=== PATIENT | female | born 1955 | race Caucasian/White ===

== ENCOUNTER 2017-03-18 11:54 | Emergency (ER) | payer SELFPAY ==
[~2017-03-18] VITALS: Ht 147.3 cm; Wt 45.4 kg
--- OUTSIDE RECORDS SUMMARY | 2017-03-18 12:01 | XMS REPORT ---
Author BERNA Gamboa [facility] eClinicalWorks Address Unknown Phone Unavailable Care Team Providers Care Field Agronomist Name Role Phone BERNA LANIER CP Unavailable Allergies, Adverse Reactions, Alerts Substance Reaction Event Type N.K.D.A. Info Not Available Non Drug Allergy Problems Problem Type Condition Code Onset Dates Condition Status Assessment Dental caries K02.9 Active Medications No Known Medications Procedures Procedure Coding System Code Date EXTRAC ERUPTED TOOTH/EXPOSED ROOT CPT-4 D7140 October 02, 2015 Vital Signs Date/Time: October 02, 2015 Blood Pressure Diastolic 88 mmHg Blood Pressure Systolic 144 mmHg Results No Known Results Summary Purpose eClinicalWorks Submission
--- OUTSIDE RECORDS SUMMARY | 2017-03-18 12:01 | XMS REPORT | Continuity of Care Document ---
Author Author [facility] Organization [facility] Address Unknown Phone Unavailable Allergies There is no data. Medications There is no data. Problems There is no data. Procedures There is no data. Results There is no data. Encounters ACCT No. Visit Date/Time Discharge Status Pt. Type Provider Facility Loc./Unit Complaint [id number] 09/27/2016 15:15:02 ACT Unknown
--- OUTSIDE RECORDS SUMMARY | 2017-03-18 12:01 | XMS REPORT | Clinical Summary ---
Author Author Admin, [facility] Organization [facility] Address Unknown Phone Unavailable Allergies, Adverse Reactions, Alerts Allergy Name Reaction Description Start Date Severity Status Provider No Known Allergies Zari Elder Conditions or Problems Problem Name Problem Code Onset Date Status Entry Date Provider Comment Standard Description Annotate Rectocele Active Aleyda Baer MD Rectocele Cystocele 618.01 Active Aleyda Baer MD Cystocele, midline FEMALE STRESS INCONTINENCE 625.6 Active Aleyda Baer MD Stress incontinence, female Presence of pessary V45.89 Active Aleyda Baer MD Other postsurgical status Medication List Medication Instructions Start Date Stop Date Generic Name NDC Status Provider Patient Instruction ALPRAZOLAM 0.5 MG TAB 1 tab by mouth 4 times daily prn ALPRAZOLAM 73147279456 Active Zari Elder Active DULOXETINE HCL 30 MG ORAL CPEP 3 tabs by mouth daily DULOXETINE HCL 85856510196 Active Zari Elder Active PROAIR HFA 108 (90 BASE) MCG/ACT INH AERS 2 puffs daily ALBUTEROL SULFATE 19526871067 Active Zari Elder Active PERCOCET 10-325 MG ORAL TABS 1 tab by mouth every 4hours prn OXYCODONE- ACETAMINOPHEN 32632605748 Active Zari Elder Active Advance Directives Directive Description Start Date PERMISSION TO SHARE Encounters Code Encounter Date Provider Facility CPT-30082 Level 4 New Patient 00:04:14 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
--- OUTSIDE RECORDS SUMMARY | 2017-03-18 12:01 | XMS REPORT | Clinical Summary ---
Author Author Admin, [facility] Organization [facility] Address Unknown Phone Unavailable Allergies, Adverse Reactions, Alerts Allergy Name Reaction Description Start Date Severity Status Provider No Known Allergies Zari Elder Conditions or Problems Problem Name Problem Code Onset Date Status Entry Date Provider Comment Standard Description Annotate Problems Unknown Active Medication List Medication Instructions Start Date Stop Date Generic Name NDC Status Provider Patient Instruction ALPRAZOLAM 0.5 MG TAB 1 tab by mouth 4 times daily prn ALPRAZOLAM 67468904249 Active Zari Elder Active DULOXETINE HCL 30 MG ORAL CPEP 3 tabs by mouth daily DULOXETINE HCL 88442423611 Active Zari Elder Active PROAIR HFA 108 (90 BASE) MCG/ACT INH AERS 2 puffs daily ALBUTEROL SULFATE 38483573529 Active Zari Elder Active PERCOCET 10-325 MG ORAL TABS 1 tab by mouth every 4hours prn OXYCODONE- ACETAMINOPHEN 37343613304 Active Zari Elder Active
--- OUTSIDE RECORDS SUMMARY | 2017-03-18 12:01 | XMS REPORT | Clinical Summary ---
Author Author Admin, [facility]IE Organization [facility] Address Unknown Phone Unavailable Allergies, Adverse Reactions, Alerts Allergy Name Reaction Description Start Date Severity Status Provider No Known Allergies Nataliia Tavarez MA Conditions or Problems Problem Name Problem Code [...] by mouth 4 times daily prn ALPRAZOLAM 66131428430 Active Zari Elder Active DULOXETINE HCL 30 MG ORAL CPEP 3 tabs by mouth daily DULOXETINE HCL 92088158639 Active Zari Elder Active PROAIR HFA 108 (90 BASE) MCG/ACT INH AERS 2 puffs daily ALBUTEROL SULFATE 96050320788 Active Zari Elder Active PERCOCET 10-325 MG ORAL TABS 1 tab by mouth every 4hours prn OXYCODONE- ACETAMINOPHEN 72746692502 Active Zari Elder Active Advance Directives Directive Description Start Date PERMISSION TO SHARE Vital Signs Date Name Value Unit Range Description blood pressure, diastolic - 8462-4 60 mm[Hg] BP varma blood pressure, systolic - 8480-6 115 mm[Hg] BP sys height E&M - 8302-2 49 [in_us] Bdy height pulse rate E&M - 8867-4 86 /min Heart rate temperature E&M 98.3 [degF] Body temperature weight E&M - 3141-9 100 [lb_av] Weight Measured Encounters Code Encounter Date Provider Facility CPT-30428 Level 4 New Patient 00:04:14 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
[2017-03-18] MEDS ORDERED: ALPR1TAB7 (12:29)
[2017-03-18] MEDS ORDERED: MORP60TA52 (12:29)
[2017-03-18] MEDS ORDERED: DULO30CA3 (12:29)
[2017-03-18] MEDS ORDERED: PSEU30TA18 (12:29)
[2017-03-18] MEDS ORDERED: GABA-488 (12:29)
[2017-03-18] MEDS ORDERED: OXYC10TA7 (12:29)
--- NOTE | 2017-03-18 13:27 | ED Chest Pain ---
General Chief Complaint: Chest Wall/Rib Pain Stated Complaint: HEARTBURN/JAW PAIN Nursing Triage Note: AMB TO ROOM REPORTS THAT ON SUN FOR APX 6 HRS HAD BULRNING IN MIDDLE OF CHEST UP TO NECK. VOMITED . WAS SENT BY [facility] Nursing Sepsis Screen: No Definite Risk History of Present Illness Time seen by provider: 13:05 Initial Comments 61-year-old female reports that 2 days ago she began having chest wall pain, she became diaphoretic and vomited 3 times on that day. Her symptoms resolved until today. She reports the pain starts about in her mid sternum and radiates up into her throat and jaw. She denies any left arm pain. She has a history of fibromyalgia and was recently diagnosed with rheumatoid arthritis. She denies any nausea or vomiting today. She rates the pain at the 7-8/10. She has no previous cardiac history. Timing/Duration: intermittent Severity/Quality: moderate, burning, pressure Location: substernal Radiation: jaw Activities at Onset: none Prior CP/Workup: no prior chest pain Modifying Factors: improves with lying down ASA po ADJUNCT POLITICAL SCIENCE INSTRUCTOR: No NTG SL ADJUNCT POLITICAL SCIENCE INSTRUCTOR: No Associated Symptoms: diaphoresis, No fatigue, fever/chills, heartburn, nausea/ vomiting, No shortness of breath, No swelling/lump in chest, No syncope, No weakness Allergies and Home Medications Allergies Coded Allergies: No Known Drug Allergies (Unverified , 03/18/17) Home Medications Alprazolam 1 Mg Tablet, (Reported) Duloxetine HCl 30 Mg Capsule.dr, (Reported) Gabapentin 300 Mg Capsule, (Reported) Morphine Sulfate 60 Mg Tablet.er, (Reported) Oxycodone HCl 10 Mg Tablet, (Reported) Pseudoephedrine HCl 30 Mg Tablet, (Reported) Review of Systems Constitutional: no symptoms reported, see HPI Cardiovascular: See HPI, Chest Pain, Palpitations All Other Systems Reviewed Negative Unless Noted: Yes Past Akzxzbo-Bzabwm-Yqwsdr Hx Patient Social History Alcohol Use: Denies Use Recreational Drug Use: No Smoking Status: Current Everyday Smoker Type Used: Cigarettes Recent Foreign Travel: No Contact w/Someone Who Travel: No Recent Infectious Disease Expo: No Cardiovascular History of Cardiac Disorders: No Neurological History of Neurological Disord: No Genitourinary History of Genitourinary Disor: No Gastrointestinal History of Gastrointestinal Di: No Musculoskeletal History of Musculoskeletal Dis: Yes Musculoskeletal Disorders: Arthritis, Fibromyalgia, Chronic Back Pain Endocrine History of Endocrine Disorders: No HEENT History of HEENT Disorders: No Cancer History of Cancer: No Psychosocial History of Psychiatric Problem: Yes Behavioral Health Disorders: Anxiety Reviewed Nursing Assessment Reviewed/Agree w Nursing PMH: Yes Physical Exam Vital Signs Vital Sign - Last 12Hours 03/18/17 12:00 Temp 98.6 Pulse 93 Resp 18 B/P (MAP) 174/96 (122) Pulse Ox 97 O2 Delivery Room Air Capillary Refill : Less Than 3 Seconds General Appearance: No Apparent Distress, WD/WN HEENT: PERRL/EOMI, TMs Normal, Normal ENT Inspection, Pharynx Normal Neck: Full Range of Motion, Normal Inspection, Non Tender, Supple, No Lymphadenopathy (L), No Lymphadenopathy (R) Respiratory: Chest Non Tender (to palpation, patient reports burning sensation substernal, radiates to her neck and jaw.), Lungs Clear, Normal Breath Sounds Cardiovascular: Regular Rate, Rhythm, No Edema, No Murmur, Other (no bruit noted over carotids, bilaterally) Gastrointestinal: Normal Bowel Sounds, Non Tender, Soft Extremity: Normal Capillary Refill, Normal Inspection, Normal Range of Motion, Non Tender, No Calf Tenderness, No Pedal Edema Neurologic/Psychiatric: Alert, Oriented x3, No Motor/Sensory Deficits, Normal Mood/Affect Skin: Normal Color, Warm/Dry Lymphatic: No Adenopathy Progress/Results/Core Measures Results/Orders Lab Results Laboratory Tests Test 03/18/17 13:19 03/18/17 13:55 Range/Units White Blood Count 10.4 4.3-11.0 10^3/uL Red Blood Count 4.28 L 4.35-5.85 10^6/uL Hemoglobin 13.7 11.5-16.0 G/DL Hematocrit 41 35-52 % Mean Corpuscular Volume 95 80-99 FL Mean Corpuscular Hemoglobin 32 25-34 PG Mean Corpuscular Hemoglobin Concent 34 32-36 G/DL Red Cell Distribution Width 12.5 10.0-14.5 % Platelet Count 416 H 130-400 10^3/uL Mean Platelet Volume 9.1 7.4-10.4 FL Neutrophils (%) (Auto) 56 42-75 % Lymphocytes (%) (Auto) 33 12-44 % Monocytes (%) (Auto) 9 0-12 % Eosinophils (%) (Auto) 2 0-10 % Basophils (%) (Auto) 0 0-10 % Neutrophils # (Auto) 5.9 1.8-7.8 X 10^3 Lymphocytes # (Auto) 3.4 1.0-4.0 X 10^3 Monocytes # (Auto) 0.9 0.0-1.0 X 10^3 Eosinophils # (Auto) 0.2 0.0-0.3 10^3/uL Basophils # (Auto) 0.0 0.0-0.1 10^3/uL Prothrombin Time 13.1 12.2-14.7 SEC INR Comment 1.0 0.8-1.4 Activated Partial Thromboplast Time 29 24-35 SEC Sodium Level 134 L 135-145 MMOL/L Potassium Level 4.1 3.6-5.0 MMOL/L Chloride Level 99 98-107 MMOL/L Carbon Dioxide Level 26 21-32 MMOL/L Anion Gap 9 5-14 MMOL/L Blood Urea Nitrogen 8 7-18 MG/DL Creatinine 0.69 0.60-1.30 MG/DL Estimat Glomerular Filtration Rate > 60 BUN/Creatinine Ratio 12 Glucose Level 106 H 70-105 MG/DL Calcium Level 9.0 8.5-10.1 MG/DL Magnesium Level 1.7 L 1.8-2.4 MG/DL Total Bilirubin 0.3 0.1-1.0 MG/DL Aspartate Amino Transf (AST/SGOT) 14 5-34 U/L Alanine Aminotransferase (ALT/SGPT) 9 0-55 U/L Alkaline Phosphatase 70 40-136 U/L Myoglobin 33.9 10.0-92.0 NG/ML Troponin I < 0.30 <0.30 NG/ML Total Protein 7.0 6.4-8.2 GM/DL Albumin 3.5 3.2-4.5 GM/DL Urine Color YELLOW Urine Clarity CLEAR Urine pH 7 5-9 Urine Specific [place] 1.005 L 1.016-1.022 Urine Protein NEGATIVE NEGATIVE Urine Glucose (UA) NEGATIVE NEGATIVE Urine Ketones NEGATIVE NEGATIVE Urine Nitrite NEGATIVE NEGATIVE Urine Bilirubin NEGATIVE NEGATIVE Urine Urobilinogen NORMAL NORMAL MG/DL Urine Leukocyte Esterase NEGATIVE NEGATIVE Urine RBC (Auto) NEGATIVE NEGATIVE Urine RBC NONE /HPF Urine WBC 0-2 /HPF Urine Squamous Epithelial Cells 10-25 H /HPF Urine Crystals PRESENT H /LPF Urine Amorphous Sediment RARE SD URATES H /LPF Urine Bacteria FEW H /HPF Urine Casts NONE /LPF Urine Mucus NEGATIVE /LPF Urine Culture Indicated NO My Orders Orders - HARJEETCELIA Troponin I (03/18/17 13:11) Chest 1 View, Ap/Pa Only (03/18/17 13:11) Saline Lock/Iv-Start (03/18/17 13:11) Monitor-Rhythm Ecg Trace Only (03/18/17 13:11) Cbc With Automated Diff (03/18/17 13:11) Magnesium (03/18/17 13:11) Comprehensive Metabolic Panel (03/18/17 13:11) Myoglobin Serum (03/18/17 13:11) Protime With Inr (03/18/17 13:11) Partial Thromboplastin Time (03/18/17 13:11) Lidocaine 2% Viscous 15 Ml (Xylocaine Vi (03/18/17 13:30) Antacid Suspension (Mylanta Suspension (03/18/17 13:30) Ekg Tracing (03/18/17 13:27) Ua Culture If Indicated (03/18/17 14:13) Nitroglycerin 0.4 Mg Btl 25's (Nitrostat (03/18/17 15:00) Aspirin Enteric Coated Tablet (Ecotrin T (03/18/17 15:00) Aspirin Chewable Tablet (Baby Aspirin Ch (03/18/17 15:00) Medications Given in ED Current Medications Medications Dose Ordered Sig/Faustino Route Start Time Stop Time Status Last Admin Dose Admin Al Hydrox/Mg Hydrox/Simethicone 30 ml ONCE ONCE PO 03/18/17 13:30 03/18/17 13:31 DC 03/18/17 13:31 30 ML Aspirin 81 mg STK-MED ONCE .ROUTE 03/18/17 15:00 03/18/17 15:03 DC 03/18/17 15:04 324 MG Lidocaine HCl 15 ml ONCE ONCE PO 03/18/17 13:30 03/18/17 13:31 DC 03/18/17 13:31 15 ML Nitroglycerin 0.4 mg UD PRN SL 03/18/17 15:00 03/18/17 15:50 DC 03/18/17 15:05 0.4 MG Vital Signs/I&O Vital Sign - Last 12Hours 03/18/17 03/18/17 12:00 15:46 Temp 98.6 Pulse 93 84 Resp 18 18 B/P (MAP) 174/96 (122) Pulse Ox 97 98 O2 Delivery Room Air Room Air Blood Pressure Mean: 122 Progress Note : Time: 13:05 Progress Note Initial evaluation completed, EKG essentially normal, labs drawn. 1330 GI cocktail administered. 1350 patient reports no change in her symptoms since taking the GI cocktail. 1410 patient reports that she did not take her aspirin today, we will give aspirin 324 mg chewable And nitroglycerin sublingual 0.4 mg. 1420 patient reports symptoms are improving since giving the nitroglycerin. 1450 discharge planning reviewed with the patient and return precautions. All questions answered. ECG Initial ECG Impression Date: Mar 18, 2017 Initial ECG Impression Time: 12:23 Initial ECG Rhythm: Normal Sinus Initial ECG Intervals: Normal Initial ECG Intervals VA 117, QRS 3100, QT 388, QTc 478. [place] P0, QRS -29, T 40. Initial ECG Impression: Normal Initial ECG Comparisson: No Previous ECG Available Diagnostic Imaging Diagonstic Imaging: Xray Plain Films/CT/US/NM/MRI: chest Comments NAME: JEY BURCIGAA [facility] REC#: [id number] PT STATUS: REG ER : 1955 PHYSICIAN: CELIA COSBY ADMIT DATE: 03/18/17/ER Signed Date of Exam: 03/18/17 CHEST 1 VIEW, AP/PA ONLY INDICATION: Pain. COMPARISON: None. FINDINGS: Single frontal view of the chest is obtained. Heart size is normal. The pulmonary vessels appear unremarkable. There is no pneumothorax, mediastinal widening or pleural fluid demonstrated. The lungs are clear. IMPRESSION: No acute abnormalities demonstrated. Dictated by: Dictated on workstation # [id number] Dict: 03/18/17 1419 Trans: 03/18/17 142 Interpreted by: FREEDOM RIVERA DO Electronically signed by: FREEDOM RIVERA DO 03/18/17 1425 Departure Impression Impression: Primary Impression: Atypical chest pain Additional Impression: Angina pectoris Disposition: 01 HOME, SELF-CARE Condition: Improved Departure-Patient Inst. Decision time for Depature: 15:30 Referrals: [facility] (PCP/Family) Primary Care Physician Patient Instructions: Angina (DC), Chest Pain (DC) Add. Discharge Instructions: Call for cardiology evaluation: Dr. Malone [phone]; Dr. Hernadez [phone] Madrid [phone] Keep appointment with primary care provider at [facility] for next week. Continue continue taking aspirin 325 mg 1 daily. May take Tylenol 650 mg every 8 hours for pain. Discontinue the Sudafed. May use the nitroglycerin for chest pain, place on on your tongue, may repeat up to 3 doses in 15 min, if symptoms do not resolve, call 911 or go to the Emergency Department. Return to emergency department for chest pain not relieved with nitroglycerin, new problems or concerns. All discharge instructions reviewed with patient and/or family. Voiced understanding. Work/School Note: Work Release Form Date Seen in the Emergency Department: Mar 18, 2017 Return to Work: Mar 21, 2017 Restrictions: No Restrictions Copy Copies To 1: QUITA OLGUIN MD, AMY ARNP Mar 18, 2017 13:27
[2017-03-18 13:29] LABS: BASOPHILS % (AUTO) 0 % (0-10); EOSINOPHILS # (AUTO) 0.2 10^3/uL (0.0-0.3); EOSINOPHILS % (AUTO) 2 % (0-10); HEMATOCRIT 41 % (35-52); HEMOGLOBIN 13.7 G/DL (11.5-16.0); LYMPHOCYTES # (AUTO) 3.4 X 10^3 (1.0-4.0); LYMPHOCYTES % (AUTO) 33 % (12-44); MEAN CORPUSCULAR HEMOGLOBIN 32 PG (25-34); MEAN CORPUSCULAR HGB CONC 34 G/DL (32-36); MEAN CORPUSCULAR VOLUME 95 FL (80-99); MEAN PLATELET VOLUME 9.1 FL (7.4-10.4); MONOCYTES # (AUTO) 0.9 X 10^3 (0.0-1.0); MONOCYTES % (AUTO) 9 % (0-12); NEUTROPHILS # (AUTO) 5.9 X 10^3 (1.8-7.8); NEUTROPHILS % (AUTO) 56 % (42-75); PLATELET COUNT 416 10^3/uL (130-400); RED BLOOD COUNT 4.28 10^6/uL (4.35-5.85); RED CELL DISTRIBUTION WIDTH 12.5 % (10.0-14.5); WHITE BLOOD COUNT 10.4 10^3/uL (4.3-11.0)
[2017-03-18] MEDS ORDERED: LIDOCAINE 2% VISCOUS 15 ML UDC PO ONE (13:30)
[2017-03-18] MEDS ORDERED: ANTACID SUSP 30 ML UDC (MYLANTA) PO ONE (13:30)
[2017-03-18 13:39] LABS: PROTHROMBIN TIME PATIENT 13.1 SEC (12.2-14.7)
[2017-03-18 13:48] LABS: ALANINE AMINOTRANSFERASE 9 U/L (0-55); ALBUMIN 3.5 GM/DL (3.2-4.5); ALKALINE PHOSPHATASE 70 U/L (40-136); BILIRUBIN,TOTAL 0.3 MG/DL (0.1-1.0); BUN/CREATININE RATIO 12; CARBON DIOXIDE 26 MMOL/L (21-32); CHLORIDE 99 MMOL/L (98-107); CREATININE SERUM 0.69 MG/DL (0.60-1.30); GFR ESTIMATED > 60; GLUCOSE 106 MG/DL (70-105); MAGNESIUM 1.7 MG/DL (1.8-2.4); POTASSIUM 4.1 MMOL/L (3.6-5.0); SODIUM 134 MMOL/L (135-145)
[2017-03-18 13:54] LABS: MYOGLOBIN SERUM 33.9 NG/ML (10.0-92.0)
--- NOTE | 2017-03-18 14:22 | Diagnostic Imaging Report ---
INDICATION: Pain. COMPARISON: None. FINDINGS: Single frontal view of the chest is obtained. Heart size is normal. The pulmonary vessels appear unremarkable. There is no pneumothorax, mediastinal widening or pleural fluid demonstrated. The lungs are clear. IMPRESSION: No acute abnormalities demonstrated. Dictated by: Dictated on workstation # [id number]
[2017-03-18 14:46] LABS: BILIRUBIN,URINE NEGATIVE (NEGATIVE); GLUCOSE, URINE (UA) NEGATIVE (NEGATIVE); KETONES,URINE NEGATIVE (NEGATIVE); LEUKOCYTE ESTERASE ,URINE NEGATIVE (NEGATIVE); NITRITE,URINE NEGATIVE (NEGATIVE); PH,URINE 7 (5-9); PROTEIN,URINE NEGATIVE (NEGATIVE); UROBILINOGEN,URINE NORMAL (NORMAL)
[2017-03-18 14:48] LABS: AMORPHOUS SEDIMENT,UR RARE AMOR URATES /LPF; BACTERIA,URINE FEW /HPF; CLARITY,URINE CLEAR; COLOR,URINE YELLOW; WBC,URINE 0-2 /HPF
[2017-03-18] MEDS ORDERED: NITROGLYCERIN 0.4 MG SL TABS BTL 25'S SL PRN (15:00)
[2017-03-18] MEDS ORDERED: ASPIRIN E.C. 325 MG (ECOTRIN) TABLET PO ONE (15:00)
[2017-03-18] MEDS ORDERED: ASPIRIN 81 MG CHEW (CHILDREN'S ASA) ONE (15:00)
[2017-03-18 15:46] VITALS: BP 158/97
== END 2017-03-18 15:50 | disposition home or self-care (01) ==
LOC: ER 11:58
DX: I20.9 Angina pectoris, unspecified (principal); F41.9 Anxiety disorder, unspecified; F17.210 Nicotine dependence, cigarettes, uncomplicated
CPT/HCPCS: 36415; 71045; 80053; 81000; 83735; 83874; 84484; 85025; 85610; 85730; 93005; 93041

== ENCOUNTER → 2017-06-03 | Outpatient (CLI) | payer OTHER ==
[~2017-06-03] MED LIST: ALPR1TAB7; ALPR1TAB7 PO; ASPI-586 PO; ASPI-999 PO; ATOR20TA66 PO; DULO30CA3; DULO30CA48 PO; DULO60CA58 PO; GABA-488; LORA10TA7 PO; MORP60TA PO; MORP60TA52; NITR0.4T42 SL; OXYC10TA7; OXYC10TA7 PO; PSEU30TA18
== END ==
LOC: RAD 13:56
PROVIDERS: ATTEND Nurse Practitioner Family
DX: I73.9 Peripheral vascular disease, unspecified (principal); I10 Essential (primary) hypertension; R06.00 Dyspnea, unspecified; R07.9 Chest pain, unspecified
CPT/HCPCS: 93923

== ENCOUNTER 2017-06-10 08:07 | Day surgery (SDC) | payer OTHER ==
[~2017-06-10] VITALS: Ht 147.3 cm; Wt 45.4 kg
[2017-06-10] VITALS (11 sets, daily range): BP systolic 107–226; BP diastolic 67–82
[~2017-06-10 08:07] MED LIST changes: -ALPR1TAB7 PO; -ASPI-586 PO; -ASPI-999 PO; -ATOR20TA66 PO; -DULO30CA48 PO; -DULO60CA58 PO; -LORA10TA7 PO; -MORP60TA PO; -NITR0.4T42 SL; -OXYC10TA7 PO
[2017-06-10] MEDS ORDERED: NS IV 1000 ML 1,000 ML ONE (08:10)
[2017-06-10] MEDS ORDERED: HEParin (CATH LAB) 2,000 ML IV ONE (08:11)
[2017-06-10] MEDS ORDERED: NS IV 1000 ML 1,000 ML IV SCH ×2 (08:30→12:39)
[2017-06-10 08:41] LABS: HEMOGLOBIN 13.8 G/DL (11.5-16.0); MEAN PLATELET VOLUME 9.2 FL (7.4-10.4); RED BLOOD COUNT 4.39 10^6/uL (4.35-5.85); RED CELL DISTRIBUTION WIDTH 13.9 % (10.0-14.5); WHITE BLOOD COUNT 23.3 10^3/uL (4.3-11.0)
[2017-06-10 08:54] LABS: INR 1.1 (0.8-1.4); PROTHROMBIN TIME PATIENT 13.8 SEC (12.2-14.7)
[2017-06-10] MEDS ORDERED: NITR0.4T42 SL (09:03)
[2017-06-10 09:04] LABS: ALANINE AMINOTRANSFERASE 7 U/L (0-55); ALKALINE PHOSPHATASE 79 U/L (40-136); BILIRUBIN,TOTAL 0.3 MG/DL (0.1-1.0); BUN/CREATININE RATIO 22; CALCIUM 9.2 MG/DL (8.5-10.1); CARBON DIOXIDE 25 MMOL/L (21-32); CHLORIDE 98 MMOL/L (98-107); CHOLESTEROL 190 MG/DL (< 200); CREATININE SERUM 0.78 MG/DL (0.60-1.30); GFR ESTIMATED > 60; GLUCOSE 98 MG/DL (70-105); HDL CHOLESTEROL 61 MG/DL (40-60); POTASSIUM 3.9 MMOL/L (3.6-5.0); SODIUM 133 MMOL/L (135-145); TOTAL PROTEIN 7.3 GM/DL (6.4-8.2); TRIGLYCERIDES 84 MG/DL (<150); VLDL CHOLESTEROL 17 MG/DL (5-40)
[2017-06-10] MEDS ORDERED: OXYC10TA7 PO (09:04)
[2017-06-10] MEDS ORDERED: MORP60TA PO (09:05)
[2017-06-10] MEDS ORDERED: DULO60CA58 PO (09:05)
[2017-06-10] MEDS ORDERED: LORA10TA7 PO (09:05)
[2017-06-10] MEDS ORDERED: DULO30CA48 PO (09:06)
[2017-06-10] MEDS ORDERED: ALPR1TAB7 PO (09:07)
[2017-06-10] MEDS ORDERED: ASPI-586 PO (09:07)
[2017-06-10] MEDS ORDERED: INFLUENZA TRIvalent 2017-2018 0.5 ML/45 MCG SYR IM ONE (09:15)
[2017-06-10] MEDS ORDERED: MIDAZOLAM 5 MG/5 ML (VERSED) VIAL ONE (11:32)
[2017-06-10] MEDS ORDERED: fentaNYL INJECTION 100 MCG/2 ML AMP ONE (11:32)
[2017-06-10] MEDS ORDERED: diphenhydrAMINE 50 MG/ML INJ (BENADRYL) ONE (11:33)
[2017-06-10] MEDS ORDERED: LIDOCAINE 1% INJ 50 ML (XYLOCAINE) VIAL ONE (11:36)
--- NOTE | 2017-06-10 12:38 | Cardiac Procedure Note-CS/ASA ---
Pre-Procedure Note Pre-Op Procedure Note H&P Reviewed The H&P was reviewed, patient examined and no changes noted. Date H&P Reviewed: Jun 10, 2017 Time H&P Reviewed: 09:30 Conscious Sedation Pre-Proced Time Reviewed: 09:30 ASA Class: 3 Airway Mallampati Classification: ([place] appropriate class) I. II. III, IV Lungs Heart ASA score ASA 1: a normal healthy patient ASA 2: a patient with a mild systemic disease (mid diabetes, controlled hypertension, obesity ASA 3: a patient with a severe systemic disease that limits activity (angina , COPD, prior Myocardial infarction) ASA 4: a patient with an incapacitating disease that is a constant threat to life (CHF, renal failure) ASA 5: a moribund patient not expected to survive 24 hrs. (ruptured aneurysm) ASA 6: a declared brain patient whose organs are being harvested. For emergent operations, add the letter E after the classification Grade 2 Sedation Plan: Analgesia, Amnesia, Plan communicated to team members, Discussed options with patient/fam, Discussed risks with patient/fam Note The patient is an appropriate candidate to undergo the planned procedure, sedation, and anesthesia. The patient immediately re-assessed prior to indication. SANDRINE KHANNA MD FACP FAC CCDS Jun 10, 2017 12:38 pm
[2017-06-10] MEDS ORDERED: ACETAMINOPHEN 325 MG TABLET/CAPLET (TYLENOL) PO PRN (12:45)
[2017-06-10] MEDS ORDERED: PATIENT MAY USE OWN MEDS, ALL PO SCH (12:45)
[2017-06-10] MEDS ORDERED: NITROGLYCERIN 0.4 MG SL TABS BTL 25'S SL PRN (12:45)
[2017-06-10] MEDS ORDERED: ALPRAZolam 1 MG (XANAX) TAB PO PRN ×2 (12:45→17:15)
[2017-06-10] MEDS ORDERED: NON-FORMULARY MEDICATION 1 EA EA (Oxycodone HCl 10 MG) PO SCH (13:00)
--- NOTE | 2017-06-10 13:03 | CARDIAC CATHETERIZATION ---
DATE OF SERVICE: 06/10/2017 CARDIAC CATHETERIZATION REPORT The patient is a 62-year-old lady with multiple coronary artery disease risk factors and has been experiencing severe midsternal chest pains. Cardiac catheterization was carried out today after having obtained informed consent. PROCEDURE: She was brought to the cardiac catheterization laboratory in a fasting state. Right groin was prepped and draped in the usual sterile fashion. Lidocaine 1% was used for local anesthesia. Modified Seldinger technique used to advance a 5-Colombian sheath in right femoral artery. A 5-Colombian JL4 catheter for left coronary angiography. A 5-Colombian JR4 catheter for right coronary angiography. A 5-Colombian pigtail catheter for left heart catheterization, left ventricular angiography. We pulled back to the pigtail catheter into the aorta and placed it at the aortic arch. We performed an aortic arch angiogram because she has had the severe chest pains in the midsternal area for which we did not find a coronary cause and the concern was if she had any thoracic aortic aneurysm or dissection. After carrying out aortic arch angiography, we removed the catheter and angiography of the right femoral artery was carried out through the sheath. Mynx was used to achieve hemostasis. She tolerated the procedure well. HEMODYNAMICS: Left ventricular end-diastolic pressure following coronary angiography was 16 mmHg. There was no significant pressure gradient on pullback across the aortic valve. Ascending aortic pressure was 122/65 with a mean of 72 mmHg. LEFT VENTRICULAR ANGIOGRAPHY: Left ventricular angiography was carried out in the right anterior oblique projection. Global left ventricular systolic function is normal to hyperdynamic, left ventricular ejection fraction is 70 to 75%. On the first injection, there appeared to be some catheter-induced mitral regurgitation. We then repositioned the catheter and perform the angiogram again. On the second angiogram, following repositioning of the catheter, there did not appear to be any significant mitral regurgitation. CORONARY ANGIOGRAPHY: There is a kozc-rp-sqwcuanf coronary calcification. Left main coronary artery does not exhibit significant disease. The left anterior descending artery has 30 to 40% proximal stenosis that includes the origin of the first diagonal branch. Left circumflex artery has mild plaques. Right coronary artery is dominant and has 40 to 50% mid vessel stenosis. AORTIC ARCH ANGIOGRAM: Aortic arch angiography did not indicate thoracic aortic aneurysm or dissection. There is some calcification of the aortic arch. Neck arteries, to the extent seen, do not exhibit significant obstructive disease. CONCLUSIONS: 1. Mild coronary artery disease as described above. 2. Normal to hyperdynamic left ventricular systolic function with an ejection fraction of 70 to 75%. 3. Wcnz-rh-afkfczcg elevation left ventricular end-diastolic pressure. 4. No significant mitral regurgitation. DISCUSSION AND RECOMMENDATIONS: Based on results of the study, it appears appropriate to continue a conservative approach. Risk factor modification is advised. She has been advised to quit smoking immediately and completely. We noted that her white count was elevated and she is being retained in the hospital overnight for medical consultation for leukocytosis. Job ID: [id number] DocumentID: [id number] Dictated Date: 06/10/2017 12:32:20 City Engineer Date: 06/10/2017 13:02:50 Dictated By: SANDRINE KHANNA MD, MA, FACP, FACC,
[2017-06-10] MEDS ORDERED: ASPIRIN 81 MG CHEW (CHILDREN'S ASA) PO NR (14:00)
[2017-06-10 15:35] LABS: ABSOLUTE RETIC # 39 10e9/L (24-90); BASOPHILS % (AUTO) 0 % (0-10); EOSINOPHILS # (AUTO) 0.1 10^3/uL (0.0-0.3); EOSINOPHILS % (AUTO) 1 % (0-10); HEMATOCRIT 39 % (35-52); HEMOGLOBIN 13.1 G/DL (11.5-16.0); LYMPHOCYTES # (AUTO) 4.1 X 10^3 (1.0-4.0); LYMPHOCYTES % (AUTO) 28 % (12-44); MEAN CORPUSCULAR HEMOGLOBIN 31 PG (25-34); MEAN CORPUSCULAR HGB CONC 33 G/DL (32-36); MEAN CORPUSCULAR VOLUME 93 FL (80-99); MEAN PLATELET VOLUME 9.4 FL (7.4-10.4); MONOCYTES # (AUTO) 0.7 X 10^3 (0.0-1.0); MONOCYTES % (AUTO) 5 % (0-12); NEUTROPHILS # (AUTO) 9.7 X 10^3 (1.8-7.8); NEUTROPHILS % (AUTO) 66 % (42-75); PLATELET COUNT 412 10^3/uL (130-400); RED BLOOD COUNT 4.25 10^6/uL (4.35-5.85); RETICULOCYTE % 0.91 % (0.50-2.40); WHITE BLOOD COUNT 14.7 10^3/uL (4.3-11.0)
--- NOTE | 2017-06-10 15:36 | Diagnostic Imaging Report ---
INDICATION: Leukocytosis. TIME OF EXAM: 3:24 p.m. COMPARISON: Correlation is made with prior study from 03/18/2017. FINDINGS: The heart size is stable. There is some increased density to the left lung base medially, suspicious for left basilar infiltrate. The right lung is clear. The pulmonary vascularity is normal. No effusion or pneumothorax is seen. IMPRESSION: Findings suggestive of left basilar infiltrate or atelectasis. Dictated by: Dictated on workstation # [id number]
[2017-06-10 15:52] LABS: BAND NEUTROPHILS 0 %; BASOPHILS % (MANUAL) 1 %; EOSINOPHILS % (MANUAL) 0 %; LYMPHOCYTES % (MANUAL) 34 %; MONOCYTES % (MANUAL) 3 %; NEUTROPHILS % (MANUAL) 62 %; RBC MORPH NORMAL
[2017-06-10 16:16] LABS: BILIRUBIN,URINE NEGATIVE (NEGATIVE); CLARITY,URINE CLEAR; COLOR,URINE YELLOW; GLUCOSE, URINE (UA) NEGATIVE (NEGATIVE); KETONES,URINE NEGATIVE (NEGATIVE); LEUKOCYTE ESTERASE ,URINE NEGATIVE (NEGATIVE); NITRITE,URINE NEGATIVE (NEGATIVE); PH,URINE 6.5 (5-9); PROTEIN,URINE 1+ (NEGATIVE); UROBILINOGEN,URINE NORMAL (NORMAL)
[2017-06-10 16:45] LABS: BACTERIA,URINE NEGATIVE /HPF; RBC,URINE RARE /HPF; WBC,URINE RARE /HPF
[2017-06-10] MEDS ORDERED: ASPI-999 PO (17:05)
[2017-06-10] MEDS ORDERED: ATOR20TA66 PO (17:05)
[2017-06-10] MEDS ORDERED: OXYCODONE 10 MG PO PRN (17:15)
[2017-06-10] MEDS ORDERED: MORPHINE SULFATE ER 60 MG TABLET PO SCH (21:00)
[2017-06-10] MEDS ORDERED: ATORVASTATIN 40 MG (LIPITOR) TABLET PO SCH (21:00)
[2017-06-11] MEDS ORDERED: NON-FORMULARY MEDICATION 1 EA EA (Duloxetine HCl 60 MG) PO SCH (09:00)
[2017-06-11] MEDS ORDERED: DULoxetine 30 MG (CYMBALTA) CAP PO SCH ×2 (09:00)
[2017-06-11] MEDS ORDERED: LORATADINE (CLARITIN) 10 MG TAB PO SCH (09:00)
[2017-06-11] MEDS ORDERED: ASPIRIN 81 MG CHEW (CHILDREN'S ASA) PO SCH (09:00)
== END 2017-06-10 17:40 | disposition home or self-care (01) ==
LOC: CATH 08:07 → 4TH 12:50 → CATH 17:40
PROVIDERS: ATTEND Nurse Practitioner Family
DX: I25.10 Atherosclerotic heart disease of native coronary artery without angina pectoris (principal); Z11.2 Encounter for screening for other bacterial diseases; F17.210 Nicotine dependence, cigarettes, uncomplicated; D72.829 Elevated white blood cell count, unspecified
CPT/HCPCS: 36221; 36415; 71045; 80053; 80061; 81000; 83605; 84443; 85007; 85027; 85045; 85610; 85730; 87040; 87081; 93458

== ENCOUNTER → 2017-06-19 | Outpatient (CLI) | payer OTHER ==
[~2017-06-19] MED LIST changes: +ALPR1TAB7 PO; +ASPI-586 PO; +ASPI-999 PO; +ATOR20TA66 PO; +DULO30CA48 PO; +DULO60CA58 PO; +LORA10TA7 PO; +MORP60TA PO; +NITR0.4T42 SL; +OXYC10TA7 PO
--- NOTE | 2017-06-19 17:47 | Diagnostic Imaging Report ---
EXAMINATION: Ultrasound right lower extremity arterial. INDICATION: Right groin pain. Spectral and color flow imaging was performed. There are no prior studies available for comparison. By history, the patient has had a recent cardiac catheterization procedure. FINDINGS: There is good arterial blood flow in the common femoral and superficial femoral arteries. There is no sign of pseudoaneurysm or AV fistula. In the soft tissues anterior to the common femoral artery, there is a 1.7 x 1.6 x 0.3 cm hypoechoic area. I suspect that this is a small hematoma. There is no internal vascularity to suggest active bleeding. IMPRESSION: There is no evidence for an acute vascular injury to the common femoral or superficial femoral arteries. There does appear to be a small hematoma in the soft tissues in this region, however. Clinical followup is recommended. Dictated by: Dictated on workstation # [id number]
== END ==
LOC: CARD 13:03
PROVIDERS: ATTEND Nurse Practitioner Family
DX: R10.31 Right lower quadrant pain (principal); R07.9 Chest pain, unspecified; I97.630 Postprocedural hematoma of a circulatory system organ or structure following a cardiac catheterization
CPT/HCPCS: 93306; 93926

== ENCOUNTER → 2017-07-02 | Outpatient (CLI) | payer OTHER ==
[~2017-07-02] MED LIST changes: +RT-ALBUTEROL SULF 2.5 MG/3 ML PRE-MIX VIAL INH ONE
== END ==
LOC: RT 11:43
PROVIDERS: ATTEND Nurse Practitioner Family
DX: R06.00 Dyspnea, unspecified (principal); Z72.0 Tobacco use
CPT/HCPCS: 94060; 94726; 94729

== ENCOUNTER 2017-07-12 21:24 | Outpatient (CLI) | payer OTHER ==
[~2017-07-12 21:24] MED LIST changes: -RT-ALBUTEROL SULF 2.5 MG/3 ML PRE-MIX VIAL INH ONE
== END 2017-07-13 06:35 | disposition home or self-care (01) ==
LOC: SLEEP 21:24
PROVIDERS: ATTEND Nurse Practitioner Family
DX: G47.00 Insomnia, unspecified (principal); G25.81 Restless legs syndrome; G47.50 Parasomnia, unspecified; G47.10 Hypersomnia, unspecified
CPT/HCPCS: 95810

== ENCOUNTER → 2017-08-06 | Outpatient (CLI) | payer OTHER ==
[~2017-08-06] MED LIST changes: +CATHETER FLUSH 10 ML SYR IV PRN; +IOHEXOL 350 MG/ML 100 ML (OMNIPAQUE 350) VIAL IV ONE; +NS 250 ML (IVPB) BAG IV ONE
[2017-08-06 14:08] LABS: BUN/CREATININE RATIO 16; CREATININE SERUM 0.75 MG/DL (0.60-1.30); GFR ESTIMATED > 60
[2017-08-06 15:13] LABS: ABG BASE EXCESS -2.4 MMOL/L (-2.5-2.5); ABG OXYGEN SATURATION 97 % (94-100); ABG PCO2 41 MMHG (35-45); ABG PH 7.35 (7.37-7.43); ABG PO2 86 MMHG (79-93); ABG TCO2 23.7 MMOL/L (21.0-31.0)
[2017-08-06 15:15] LABS: ALLENS TEST YES-POS; INSPIRED O2 ROOM AIR; PATIENT TEMP 97.3; VENTILATOR NO
--- NOTE | 2017-08-06 15:41 | Diagnostic Imaging Report ---
PROCEDURE: CT chest with contrast only. TECHNIQUE: Multiple contiguous axial images were obtained through the chest after administration of intravenous contrast. INDICATION: Restrictive lung disease and shortness of air. COMPARISON: No prior CT chest studies are available for comparison. FINDINGS: No axillary lymphadenopathy is detected. No definite mediastinal or hilar lymphadenopathy is seen. No pericardial or pleural fluid is detected. Parenchymal evaluation does show central airways to be patent. There appear to be some centrilobular emphysematous changes in both lungs. No infiltrate, nodule, or mass is detected. Upper abdomen is unremarkable. IMPRESSION: Mild centrilobular emphysematous changes. The study is otherwise unremarkable. Dictated by: Dictated on workstation # [id number]
== END ==
LOC: RAD 13:27
PROVIDERS: ATTEND Nurse Practitioner Family
DX: J43.9 Emphysema, unspecified (principal); Z72.0 Tobacco use
CPT/HCPCS: 36415; 36600; 71260; 82565; 82805; 84520

== ENCOUNTER 2017-08-25 09:19 | Outpatient (RCR) | payer OTHER ==
[~2017-08-25 09:19] MED LIST changes: -CATHETER FLUSH 10 ML SYR IV PRN; -IOHEXOL 350 MG/ML 100 ML (OMNIPAQUE 350) VIAL IV ONE; -NS 250 ML (IVPB) BAG IV ONE
== END 2017-11-23 | disposition home or self-care (01) ==
LOC: PULM 09:19
PROVIDERS: ATTEND Nurse Practitioner Family
DX: J98.4 Other disorders of lung (principal); R53.83 Other fatigue; R06.09 Other forms of dyspnea; Z72.0 Tobacco use
CPT/HCPCS: 99211

== ENCOUNTER 2018-07-24 09:13 | Outpatient (CLI) | payer OTHER ==
[~2018-07-24] VITALS: Ht 147.3 cm; Wt 45.4 kg
[2018-07-24] MEDS ORDERED: ATOR20TA66 PO (11:17)
[2018-07-24] MEDS ORDERED: FLUT1BLS3 IH (11:17)
[2018-07-24] MEDS ORDERED: DICL75TA2 PO (11:17)
[2018-07-24] MEDS ORDERED: CETI10TA17 PO (11:17)
[2018-07-24] MEDS ORDERED: BUPR8TAB SL (11:17)
[2018-07-24] MEDS ORDERED: IPRA3AMP31 IH (11:17)
[2018-07-24] MEDS ORDERED: LUBI24CA6 PO (11:17)
[2018-07-24] MEDS ORDERED: ASPI-586 PO (11:17)
[2018-07-24] MEDS ORDERED: METO-387 PO (11:17)
== END 2018-07-24 11:21 | disposition home or self-care (01) ==
LOC: PREOP 09:13
PROVIDERS: ATTEND Surgery
DX: Z01.818 Encounter for other preprocedural examination (principal)

== ENCOUNTER 2018-07-28 09:14 | Day surgery (SDC) | payer OTHER ==
[~2018-07-28] VITALS: Ht 147.3 cm; Wt 45.4 kg
[~2018-07-28 09:14] MED LIST changes: +BUPR8TAB SL; +CETI10TA17 PO; +DICL75TA2 PO; +FLUT1BLS3 IH; +IPRA3AMP31 IH; +LUBI24CA6 PO; +METO-387 PO
--- OUTSIDE RECORDS SUMMARY | 2018-07-28 09:18 | XMS REPORT ---
Author Author ROBIN FLORES Organization 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 Role Phone ROBIN FLORSE Unavailable PROBLEMS Type Condition ICD9-CM Code YES97-EY Code Onset Dates Condition Status SNOMED Code Problem Anxiety F41.9 Active 89914906 Problem Generalized anxiety disorder F41.1 Active 74814598 Problem Mild episode of recurrent major depressive disorder F33.0 Active 449206205 Problem Chronic pain syndrome G89.4 Active 966318584 Problem Fibromyalgia M79.7 Active 365911510 Problem Conductive hearing loss of left 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 H90.12 Active 247338977 Problem Spondylitis, cervical M46.92 Active 458428282 Problem Chronic insomnia F51.04 Active 842704054 Problem Constipation K59.00 Active 56128356 Problem Rotator cuff arthropathy of left shoulder M12.812 Active 71561615724000009 Problem 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 Active 2436955337358706 Problem Sinusitis chronic, frontal J32.1 Active 19977759 Problem Coronary artery disease involving [place] coronary artery of [place] heart with unstable angina pectoris I25.110 Active 3747759950856 Problem Arthritis M19.90 Active 0300424 Problem Angina at rest I20.8 Active 119812881 Problem Needs smoking cessation education F17.200 Active 555505867 Problem 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 [address] [facility] [id number] [address] Mar, [facility] [address] [address] Mar, [facility] [id number] [place] [address]68- 5265 Mar, [facility] [id number] [place] [address] 71315- 1368 Mar, [facility] [id number] [place] [address] 427017- 8978 Feb, [facility] [id number] [place] [address] 79702- 9769 Feb, [facility] [id number] [place] [address] 74006- 2595 Feb, Right otitis media with effusion H65.91 and Nevoid hyper[address]mentation L81.9 [facility] [id number] [place] [address] 60345- 1499 Jan, [facility] [id number] [place] [address] 77722- 9006 Jan, [facility] [id number] [place] [address] 20401- 1142 Jan, [facility] [id number] [place] [address] 41988- 9629 Jan, [facility] [id number] [place] [address] 33325- 8357 Jan, Fibromyalgia M79.7 [facility] [address] [place] [address] 83815- 7412 15 Jan, 2018 Rotator cuff arthropathy of left shoulder M12.812 [facility] [id number] [place] [address] 13967- 0029 14 Jan, 2018 Fibromyalgia M79.7 ; Spondylitis, cervical M46.92 ; Inflammatory arthritis M19.90 and Seborrheic keratoses L82.1 [facility] [id number] [place] [address] 99039- 4862 Jan, [facility] [id number] [place] [address] 16093- 6491 Jan, [facility] [id number] [place] [address] 36852- 3933 Jan, Generalized anxiety disorder F41.1 and Mild episode of recurrent major depressive disorder F33.0 [facility] [address] [address]- [address] Dec, Chronic pain syndrome G89.4 [facility] [address] 61799- [address]113 Dec, [facility] [address] 49446- 1734 Dec, Arthritis M19.90 ; Fibromyalgia M79.7 ; Anxiety F41.9 ; Dizziness R42 ; Conductive hearing loss of left 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 H90.12 and Encounter for immunization Z23 [facility] [id number] [place] [address] 24837- 1051 Dec, Rotator cuff arthropathy of left shoulder M12.812 [facility] [id number] [place] [address] 12199- 7294 Dec, Chronic pain syndrome G89.4 [facility] [id number] [place] [address] 25814- 4212 Dec, Rotator cuff arthropathy of left shoulder M12.812 [facility] [id number] [place] [address] 88488- 6464 Dec, Acute midline thoracic back pain M54.6 ; Chronic pain syndrome G89.[address] [facility] [id number] [place] [address] 46650- 7192 Dec, [facility] [id number] [place] [address] 72729- 6523 Dec, [facility] [id number] [place] [address] 52046- 8382 26 Nov, 2017 Rotator cuff arthropathy of left shoulder M12.812 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 [facility] [id number] [place] [address] 07355- 0658 10 Nov, 2017 Arthritis M19.90 and Anxiety F41.9 [facility] [id number] [place] [address] 50849- 2659 Nov, Generalized anxiety disorder F41.1 and Mild episode of recurrent major depressive disorder F33.0 [facility] [id number] [place] [address] 47174- 3329 Nov, Spondylitis, cervical M46.92 [facility] [id number] [place] [address] 84073- 0150 Oct, [facility] [id number] [place] [address] 34088- 5855 Oct, Basal cell carcinoma of nose C44.311 [facility] [id number] [place] [address] 24741- 2833 Oct, Spondylitis, cervical M46.92 and Anxiety F41.9 [facility] [id number] [place] [address] 28882- 6667 Oct, Generalized anxiety disorder F41.1 and Mild episode of recurrent major depressive disorder F33.0 [facility] [id number] [place] [address] 82726- 0278 Oct, Rotator cuff arthropathy of left shoulder M12.812 [place] [id number] [place] [address] 59560- 0376 Oct, Spondylitis, cervical M46.92 [facility] [id number] [place] [address] 70584- 0896 Oct, [facility] [id number] [place] [address] 50929- 6827 Sep, Basal cell carcinoma of nose C44.311 [facility] [id number] [place] [address] 50791- 6238 Sep, Generalized anxiety disorder F41.1 and Mild episode of recurrent major depressive disorder F33.0 [facility] [id number] [place] [address] 43755- 7532 Sep, Spondylitis, cervical M46.[address] [facility] [id number] [place] [address] 04796- 1105 Sep, [facility] [id number] [place] [address] 75919- 6402 Aug, Rotator cuff arthropathy of left shoulder M12.812 [facility] [id number] [place] [address] 15246- 7416 Aug, Lesion of nose J34.89 [facility] [id number] [place] [address] 44170- 6091 Aug, Spondylitis, cervical M46.92 ; Fibromyalgia M79.7 and 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 [facility] [id number] [place] [address] 53507- 1987 Aug, Fib[address] M79.7 [facility] [id number] [place] [address] 44798- 9015 Aug, Fibromyalgia M79.7 [facility] [id number] [place] [address] 17452- 5533 Aug, [facility] [id number] [place] [address] 64105- 0094 July, [facility] [address], [place] [address] July, [facility] [id number] [place] [address] 41411- 1644 July, Arthritis M19.90 [facility] [address] [place] [address] 04210- 0181 July, Inflammatory arthritis M19.90 [facility] [id number] [place] [address] 04890- 0743 Jun, Inflammatory arthritis M19.90 [facility] [id number] [place] [address] 07029- 3343 Jun, Ar[address]ritis M19.90 [facility] [id number] [place] [address] 38782- 8189 May, 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 ; Rheumatoid arthritis of left hip without organ or system involvement with positive rheumatoid factor M05.752 ; Chest pain, unspecified type R07.9 and Needs smoking cessation education F17.200 [place] [address], [place] [address]- 7024 May, [place] [id number] [place] [address] 55867- 8533 May, Ar[address]ritis M19.90 [facility] [address] [place] [address] 92210- 2204 May, Chest pain, unspecified type R07.9 ; Dyspnea on exertion R06.09 ; Claudication of both lower extremities I73.9 ; Hypertension, unspecified type I10 and Tobacco use Z72.0 [facility] [id number] [place] [address] 28690- 9360 Apr, Ar[address]ritis M19.90 [facility] [address] [place] [address] 55891- 7278 Apr, Ar[address]ritis M19.90 [facility] [id number] [address]- 5497 12 Apr, 2017 Sinusitis chronic, frontal J32.1 ; Coronary artery disease involving [place] coronary artery of [place] heart with unstable angina pectoris I25.110 ; Arthritis M19.[address] [facility] [address], [place] [address] 2546 09 Apr, 2017 Sinusitis chronic, frontal J32.1 ; Coronary artery disease involving [place] coronary artery of [place] heart with unstable angina pectoris I25.110 ; Arthritis M19.[address] [facility] [id number] [place] [address] 76850- 6298 Mar, [facility] [id number] [place] [address] 92046- 4873 Mar, Arthritis M19.90 [facility] [id number] [place] [address] 32183- 6359 Mar, Angina at rest I20.8 [facility] [id number] [place] [address] 10126 2546 Mar, Ar[address]ritis M19.90 [facility] [id number] [place] [address] 78146- 1976 Mar, [facility] [id number] [place] [address] 99610- 0487 Feb, [facility] [id number] [place] [address] 56670- 5433 Feb, [facility] [address] [address]- 1829 Feb, Arthritis M19.90 [facility] [id number] [place] [address] 74305 -1416 Feb, Left foot pain M79.672 and Acute left ankle pain M25.572 [facility] [id number] [place] [address] 97905- 6524 Jan, [facility] [id number] [address] 08 Jan, 2017 Arthritis M19.90 ; Spondylitis, cervical M46.92 ; Fibromyalgia M79.7 and Family history of hypothyroidism Z83.49 [place] [address], [place] [address]- 4809 Sep, Dental caries K02.9 [place] [id number] [address]- 7457 Aug, Dental examination Z01.20 [facility] [id number] [place] [address] 57999- 0058 Apr, Dental examination Z01.20 and Dental caries K02.9 [place] [address], [place] [address]- 6550 Apr, Dental caries K02.9 [place] [address], [place] [address]- 0668 Apr, Dental examination Z01.20 IMMUNIZATIONS No Known Immunizations SOCIAL HISTORY Never Assessed REASON FOR VISIT Controlled Med Refill 02/23/18 PLAN OF CARE VITAL SIGNS MEDICATIONS Medication Instructions Dosage Frequency Start Date End Date Duration Status Oxycodone HCl 5 MG Orally as directed 2 tablets in the morning, 1 tablet at noon, and 1 tablet in the evening Feb, 14 days Active RESULTS No Results PROCEDURES No Known procedures INSTRUCTIONS MEDICATIONS ADMINISTERED No Known Medications MEDICAL (GENERAL) HISTORY Type Description Date Medical History Pneumonia Medical History Back and neck pain Medical History fibromyalgia Medical History Severe OA Medical History COPD Medical History emphysema Medical History "nocturnal hypoxemia" Surgical History Heart Cath no stents needed 05/2017 Hospitalization History Chest Pain observation 2013 Hospitalization History Cervical Surgery 1997 Hospitalization History [facility] Kelly 01/2018
--- OUTSIDE RECORDS SUMMARY | 2018-07-28 09:18 | XMS REPORT ---
Author Author PEYTON OWEN [facility] Address [address] [place] [address] Care Team Providers [employer] Name Role Phone PEYTON OWEN Unavailable PROBLEMS Type Condition ICD9-CM Code ESW71-EQ Code Onset Dates Condition Status SNOMED Code Problem Anxiety F41.9 Active 24301424 Problem Generalized anxiety disorder F41.1 Active 18206987 Problem Mild episode of recurrent major depressive disorder F33.0 Active 223419653 Problem Chronic pain syndrome G89.4 Active 583441161 Problem Fibromyalgia M79.7 Active 930145048 Problem Conductive hearing loss of left 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 H90.12 Active 047718472 Problem Spondylitis, cervical M46.92 Active 394136081 Problem Chronic insomnia F51.04 Active 762169997 Problem Constipation K59.00 Active 03564740 Problem Rotator cuff arthropathy of left shoulder M12.812 Active 49986425401443522 Problem 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 Active 3199183996246147 Problem Sinusitis chronic, frontal J32.1 Active 61705230 Problem Coronary artery disease involving [place] coronary artery of [place] heart with unstable angina pectoris I25.110 Active 2801111279625 Problem Arthritis M19.90 Active 5649885 Problem Angina at rest I20.8 Active 326074444 Problem Needs smoking cessation education F17.200 Active 951068776 Problem 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 Active 759369863 Problem Hypertension, unspecified type I10 Active 00067720 Problem Inflammatory arthritis M19.90 Active 9908781 Problem Claudication of both lower extremities I73.9 Active 30173525 Problem Basal cell carcinoma of nose C44.311 Active 551876860 ALLERGIES No Information ENCOUNTERS Encounter Location Date Diagnosis [facility] [address] [facility] [id number] [address] Mar, [facility] [id number] [address] Mar, [facility] [id number] [address] Mar, [facility] [id number] [address] Mar, [facility] [address] [place] [id number] [place] [address] 83508- 6615 Feb, [facility] [id number] [place] [address] 91876- 1017 Feb, [facility] [id number] [place] [address] 15618- 0388 Feb, [facility] [address] [place] [address] 08649- 1606 Feb, Right otitis media with effusion H65.91 and Nevoid hyperpigmentation L81.9 [facility] [id number] [address] Jan, [facility] [id number] [place] [address] 12553- 0226 Jan, [facility] [id number] [address] 365[address] Jan, [facility] [address] [place] [address] 18140- 3272 Jan, [facility] [id number] [address] Jan, Fibromyalgia M79.7 [facility] [address] [place] [address] 74577- 0597 15 Jan, 2018 Rotator cuff arthropathy of left shoulder M12.812 [facility] [id number] [address] 14 Jan, 2018 Fibromyalgia M79.7 ; Spondylitis, cervical M46.92 ; Inflammatory arthritis M19.90 and Seborrheic keratoses L82.1 [facility] [id number] [place] [address] 41285- 5198 Jan, [facility] [id number] [place] [address] 21916- 4410 Jan, [facility] [id number] [place] [address] 79663- 6099 Jan, Generalized anxiety disorder F41.1 and Mild episode of recurrent major depressive disorder F33.0 [facility] [id number] [place] [address] 03853- 6680 Dec, Chronic pain syndrome G89.4 [place] [address] [address]- 6718 Dec, [facility] [id number] [place] [address] 84007- 3725 Dec, Arthritis M19.90 ; Fibromyalgia M79.7 ; Anxiety F41.9 ; Dizziness R42 ; Conductive hearing loss of left 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 H90.12 and Encounter for immunization Z23 [facility] [id number] [place] [address] 13676- 7702 Dec, Rotator cuff arthropathy of left shoulder M12.812 [place] [id number] [place] [address] 30259- 2811 Dec, Chronic pain syndrome G89.4 [facility] [id number] [place] [address] 97807- 4546 Dec, Rotator cuff arthropathy of left shoulder M12.812 [place] [id number] [place] [address] 92878- 5750 Dec, Acute midline thoracic back pain M54.6 ; Chronic pain syndrome G89.4 and Dizziness R42 [facility] [id number] [place] [address] 31036- 2347 Dec, [place] [address] [place] [address]- 6259 Dec, [facility] [id number] [place] [address] 68244- 5530 Nov, Rotator cuff arthropathy of left shoulder M12.812 [facility] [id number] [place] [address] 34744- 2409 19 Nov, 2017 Chronic insomnia F51.04 ; Non-healing skin lesion of nose L98.9 ; BPPV (benign paroxysmal positional vertigo), left H81.12 ; Constipation K59.00 and 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 [facility] [address] [address]17- 1029 Nov, Arthritis M19.90 and Anxiety F41.9 [facility] [id number] [place] [address] 65614- 3014 Nov, Generalized anxiety disorder F41.1 and Mild episode of recurrent major depressive disorder F33.0 [facility] [id number] [place] [address] 95750- 8790 Nov, Spondylitis, cervical M46.92 [facility] [id number] [place] [address] 73954- 0222 Oct, [facility] [id number] [place] [address] 44393- 0631 Oct, Basal cell carcinoma of nose C44.311 [facility] [id number] [place] [address] 29978- 7567 Oct, Spondylitis, cervical M46.92 and Anxiety F41.9 [facility] [id number] [place] [address] 80957- 2137 Oct, Generalized anxiety disorder F41.1 and Mild episode of recurrent major depressive disorder F33.0 [facility] [id number] [place] [address] 20960- 3389 Oct, Rotator cuff arthropathy of left shoulder M12.812 [place] [id number] [place] [address] 72212- 3477 Oct, Spondylitis, cervical M46.92 [facility] [address] 16214- 6663 Oct, [facility] [id number] [place] [address] 99860- 2061 Sep, Basal cell carcinoma of nose C44.311 [facility] [address] 39382- 3365 Sep, Generalized anxiety disorder F41.1 and Mild episode of recurrent major depressive disorder F33.0 [place] [address] 41538- 3861 Sep, Spondylitis, cervical M46.92 and Anxiety F41.9 [place] [address] 44782- 9984 Sep, [facility] [address] 75926- 9414 Aug, Rotator cuff arthropathy of left shoulder M12.812 [place] [address] 52733- 5947 Aug, Lesion of nose J34.89 [place] [id number] [place] [address] 27889- 1731 Aug, Spondylitis, cervical M46.92 ; Fibromyalgia M79.7 and 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 [facility] [id number] [place] [address] 46000- 1414 Aug, Fibromyalgia M79.7 [facility] [address] 56012- 1018 Aug, Fibromyalgia M79.7 [facility] [id number] [place] [address] 62985- 4449 Aug, [facility] [address] [place] [address]- 0278 July, [facility] [id number] [place] [address] 95259- 8969 July, [facility] [id number] [place] [address] 83669- 2120 July, Arthritis M19.90 [facility] [id number] [place] [address] 19953- 1462 July, Inflammatory arthritis M19.90 [facility] [id number] [place] [address] 00322- 5923 Jun, Inflammatory arthritis M19.90 [facility] [id number] [place] [address] 51862- 7053 Jun, Arthritis M19.90 [facility] [id number] [place] [address] 69655- 8681 May, 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 ; Rheumatoid arthritis of left hip without organ or system involvement with positive rheumatoid factor M05.752 ; Chest pain, unspecified type R07.9 and Needs smoking cessation education F17.200 [place] [address] [place] [address] 18400- 3403 May, [place] [address] [address]- 0543 May, Arthritis M19.90 [facility] [address] [place] [address] 70126- 1112 May, Chest pain, unspecified type R07.9 ; Dyspnea on exertion R06.09 ; Claudication of both lower extremities I73.9 ; Hypertension, unspecified type I10 and Tobacco use Z72.0 [facility] [address] [address]- 0233 Apr, Arthritis M19.90 [facility] [id number] [place] [address] 96697- 2318 Apr, Arthritis M19.90 [facility] [address] [address]- 9240 12 Apr, 2017 Sinusitis chronic, frontal J32.1 ; Coronary artery disease involving [place] coronary artery of [place] heart with unstable angina pectoris I25.110 ; Arthritis M19.90 and Fibromyalgia M79.7 [facility] [id number] [place] [address] 24287- 0204 09 Apr, 2017 Sinusitis chronic, frontal J32.1 ; Coronary artery disease involving [place] coronary artery of [place] heart with unstable angina pectoris I25.110 ; Arthritis M19.90 and Fibromyalgia M79.7 [facility] [id number] [place] [address] 37707- 9043 Mar, [facility] [id number] [place] [address] 66495- 4966 Mar, Arthritis M19.90 [facility] [id number] [place] [address] 46068- 3595 Mar, Angina at rest I20.8 [facility] [id number] [place] [address] 90851- 4154 Mar, Arthritis M19.90 [facility] [id number] [place] [address] 74340- 1103 Mar, [facility] [id number] [place] [address] 21561- 0296 Feb, [facility] [id number] [place] [address] 66158- 6851 Feb, [facility] [id number] [place] [address] 73817- 7486 Feb, Arthritis M19.90 [facility] [id number] [place] [address] 80372 -5092 Feb, Left foot pain M79.672 and Acute left ankle pain M25.572 [facility] [address] [address]- 9580 Jan, [facility] [address] [place] [address] 40425 -9911 Jan, Arthritis M19.90 ; Spondylitis, cervical M46.92 ; Fibromyalgia M79.7 and Family history of hypothyroidism Z83.49 [place] [id number] [place] [address] 92850- 1546 Sep, Dental caries K02.9 [place] [address] 53243- 2177 Aug, Dental examination Z01.20 [place] [address] 95401- 8485 Apr, Dental examination Z01.20 and Dental caries K02.9 [place] [address] [place] [id number] [place] [address] 98596- 4731 Apr, Dental caries K02.9 [place] [address] [place] [id number] [place] [address] 44075- 8878 Apr, Dental examination Z01.20 IMMUNIZATIONS No Known Immunizations SOCIAL HISTORY Never Assessed REASON FOR VISIT Requests return call PLAN OF CARE VITAL SIGNS MEDICATIONS Unknown Medications RESULTS No Results PROCEDURES No Known procedures [...]
--- OUTSIDE RECORDS SUMMARY | 2018-07-28 09:18 | XMS REPORT ---
Author Author MATEO CARY [facility] Address [address] [place] [address] Care Team Providers Care Supervisor Road Administrator Name Role Phone MATEO CARY Unavailable PROBLEMS Type Condition ICD9-CM Code UPU22-LM Code Onset Dates Condition Status SNOMED Code Problem Anxiety F41.9 Active 32352992 Problem Generalized anxiety disorder F41.1 Active 80512733 Problem Mild episode of recurrent major depressive disorder F33.0 Active 942336392 Problem Chronic pain syndrome G89.4 Active 197832457 Problem Fibromyalgia M79.7 Active 647525157 Problem Conductive hearing loss of left 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 H90.12 Active 870093942 Problem Spondylitis, cervical M46.92 Active 278163927 Problem Chronic insomnia F51.04 Active 099644340 Problem Constipation K59.00 Active 99679559 Problem Rotator cuff arthropathy of left shoulder M12.812 Active 83165875418673880 Problem 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 Active 6327422548305866 Problem Sinusitis chronic, frontal J32.1 Active 61654022 Problem 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 Active 6445243221588 Problem Arthritis M19.90 Active 5526633 Problem Angina at rest I20.8 Active 742521971 Problem Needs smoking cessation education F17.200 Active 855450088 Problem 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 Active 801917335 Problem Hypertension, unspecified type I10 Active 92111631 Problem Inflammatory arthritis M19.90 Active 8524476 Problem Claudication of both lower extremities I73.9 Active 39535614 Problem Basal cell carcinoma of nose C44.311 Active 089036885 ALLERGIES No Known Allergies ENCOUNTERS Encounter Location Date Diagnosis [facility] [address] [facility] [id number] [address] Mar, [facility] [address], [place] [address] Mar, [facility] [id number] [place] [address] 25304- 7427 Mar, [facility] [address], [place] [address] Mar, [facility] [id number] [place] [address] 75832- 8826 Feb, [facility] [id number] [place] [address] 49936- 8059 Feb, [facility] [id number] [place] [address] 49514- 1984 Feb, [facility] [id number] [place] [address] 21734- 3148 Feb, Right otitis media with effusion H65.91 and Nevoid hyperpigmentation L81.9 [facility] [address], [place] [address] Jan, [facility] [id number] [place] [address] 22960- 2289 Jan, [facility] [address], [place] [address] Jan, [facility] [id number] [place] [address] 04008- 1911 Jan, [facility] [address], [place] [address] Jan, Fibromyalgia M79.7 [facility] [id number] [place] [address] 45499- 2956 15 Jan, 2018 Rotator cuff arthropathy of left shoulder M12.812 [facility] [address], [place] [address] 14 Jan, 2018 Fibromyalgia M79.7 ; Spondylitis, cervical M46.92 ; Inflammatory arthritis M19.90 and Seborrheic keratoses L82.1 [facility] [id number] [place] [address] 39670- 1018 Jan, [facility] [id number] [place] [address] 89930- 0319 Jan, [facility] [id number] [place] [address] 06138- 5400 Jan, Generalized anxiety disorder F41.1 and Mild episode of recurrent major depressive disorder F33.0 [facility] [id number] [place] [address] 73515- 7758 Dec, Chronic pain syndrome G89.4 [facility] [id number] [place] [address] 15273- 7779 Dec, [facility] [id number] [place] [address] 70633- 6967 Dec, Arthritis M19.90 ; Fibromyalgia M79.7 ; Anxiety F41.9 ; Dizziness R42 ; Conductive hearing loss of left 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 H90.12 and Encounter for immunization Z23 [place] [address] [address]- [address] Dec, Rotator cuff arthropathy of left shoulder M12.812 [facility] [id number] [place] [address] 29046- 6064 Dec, Chronic pain syndrome G89.4 [facility] [address] 56941- 3518 Dec, Rotator cuff arthropathy of left shoulder M12.812 [place] [address] [address]36- 2552 Dec, Acute midline thoracic back pain M54.6 ; Chronic pain syndrome G89.4 and Dizziness R42 [facility] [id number] [place] [address] 54903- 5588 Dec, [facility] [id number] [place] [address] 68737- 3167 Dec, [facility] [id number] [place] [address] 10174- 6394 Nov, Rotator cuff arthropathy of left shoulder M12.812 [facility] [id number] [place] [address] 34755- 8712 19 Nov, 2017 Chronic insomnia F51.04 ; Non-healing skin lesion of nose L98.9 ; BPPV (benign paroxysmal positional vertigo), left H81.12 ; Constipation K59.00 and 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 [place] [address] 24991- 7775 Nov, Arthritis M19.90 and Anxiety F41.9 [facility] [id number] [place] [address] 27830- 0522 Nov, Generalized anxiety disorder F41.1 and Mild episode of recurrent major depressive disorder F33.0 [facility] [id number] [place] [address] 01883- 3034 Nov, Spondylitis, cervical M46.92 [facility] [id number] [place] [address] 13153- 5901 Oct, [facility] [id number] [place] [address] 33304- 1407 Oct, Basal cell carcinoma of nose C44.311 [facility] [id number] [place] [address] 01302- 1616 Oct, Spondylitis, cervical M46.92 and Anxiety F41.9 [facility] [id number] [place] [address] 00802- 9667 Oct, Generalized anxiety disorder F41.1 and Mild episode of recurrent major depressive disorder F33.0 [facility] [id number] [place] [address] 54743- 1655 Oct, Rotator cuff arthropathy of left shoulder M12.812 [facility] [id number] [place] [address] 47893- 2031 Oct, Spondylitis, cervical M46.92 [facility] [id number] [place] [address] 88928- 8703 Oct, [facility] [id number] [place] [address] 31329- 1968 Sep, Basal cell carcinoma of nose C44.311 [facility] [address] 99663- 2315 Sep, Generalized anxiety disorder F41.1 and Mild episode of recurrent major depressive disorder F33.0 [place] [address] 84220- 7324 Sep, Spondylitis, cervical M46.92 and Anxiety F41.9 [place] [address] 81771- 4927 Sep, [facility] [id number] [place] [address] 72124- 7050 Aug, Rotator cuff arthropathy of left shoulder M12.812 [place] [address] 66373- 8442 Aug, Lesion of nose J34.89 [facility] [id number] [place] [address] 55122- 6128 Aug, Spondylitis, cervical M46.92 ; Fibromyalgia M79.7 and 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 [facility] [id number] [place] [address] 11695- 4680 Aug, Fibromyalgia M79.7 [facility] [id number] [place] [address] 21760- 8789 Aug, Fibromyalgia M79.7 [facility] [id number] [place] [address] 65665- 7062 Aug, [facility] [address] [place] [address] July, [facility] [address], [place] [address] 9[address] July, [facility] [address], [place] [address]- 3697 July, Arthritis M19.90 [facility] [id number] [place] [address] 87666- 1390 July, Inflammatory arthritis M19.90 [facility] [id number] [place] [address] 01753- 4968 Jun, Inflammatory arthritis M19.90 [facility] [id number] [place] [address] 91044- 7016 Jun, Arthritis M19.90 [facility] [address] [place] [address] 69761- 6540 May, 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 ; Rheumatoid arthritis of left hip without organ or system involvement with positive rheumatoid factor M05.752 ; Chest pain, unspecified type R07.9 and Needs smoking cessation education F17.200 [place] [address], [place] [address]- [address] May, [place] [address], [place] [address]- 0970 May, Arthritis M19.90 [facility] [address] [place] [address] 62147- 6097 May, Chest pain, unspecified type R07.9 ; Dyspnea on exertion R06.09 ; Claudication of both lower extremities I73.9 ; Hypertension, unspecified type I10 and Tobacco use Z72.0 [facility] [address], [place] [address]- 0904 Apr, Arthritis M19.90 [facility] [id number] [place] [address] 75655- 1083 16 Apr, 2017 Arthritis M19.90 [facility] [address], [place] [address]- 6073 12 Apr, 2017 Sinusitis chronic, frontal J32.1 ; 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 ; Arthritis M19.90 and Fibromyalgia M79.7 [facility] [id number] [place] [address] 59576- 9424 09 Apr, 2017 Sinusitis chronic, frontal J32.1 ; 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 ; Arthritis M19.90 and Fibromyalgia M79.7 [facility] [id number] [place] [address] 12988- 9578 Mar, [facility] [id number] [place] [address] 58029- 6620 Mar, Arthritis M19.90 [facility] [id number] [place] [address] 81172- 9581 Mar, Angina at rest I20.8 [facility] [id number] [place] [address] 74995- 1930 Mar, Arthritis M19.90 [facility] [id number] [place] [address] 50830- 0929 Mar, [facility] [id number] [place] [address] 83526- 2192 Feb, [facility] [id number] [place] [address] 53286- 2146 Feb, [facility] [id number] [place] [address] 76154- 8255 Feb, Arthritis M19.90 [facility] [address], [place] [address] Feb, Left foot pain M79.672 and Acute left ankle pain M25.572 [facility] [address] [address]- 4431 09 Jan, 2017 [facility] [id number] [place] [address] 14365 -5712 08 Jan, 2017 Arthritis M19.90 ; Spondylitis, cervical M46.92 ; Fibromyalgia M79.7 and Family history of hypothyroidism Z83.49 [place] [id number] [place] [address] 13732- 1960 Sep, Dental caries K02.9 [facility] [id number] [place] [address] 67644- 7038 Aug, Dental examination Z01.20 [place] [id number] [place] [address] 89276- 6818 Apr, Dental examination Z01.20 and Dental caries K02.9 [place] [id number] [place] [address] 37947- 8934 Apr, Dental caries K02.9 [facility] [facility] [id number] [place] [address] 79334- 7228 08 Apr, 2015 Dental examination Z01.20 IMMUNIZATIONS No Known Immunizations SOCIAL HISTORY Never Assessed REASON FOR VISIT Angina PLAN OF CARE Activity Details Follow Up 2 Months Reason: VITAL SIGNS Height 59.5 in 2017-05-28 Weight 99 lbs 2017-05-28 Heart Rate 90 bpm 2017-05-28 Respiratory Rate 20 2017-05-28 Oximetry 93 % 2017-05-28 BMI 19.66 kg/m2 2017-05-28 Blood pressure systolic 116 mmHg 2017-05-28 Blood pressure diastolic 68 mmHg 2017-05-28 MEDICATIONS Medication Instructions Dosage Frequency Start Date End Date Duration Status Claritin 10 MG Orally Once a day 1 tablet 24h Active Cymbalta 30 MG Orally Once a day 1 capsule 24h Active Cymbalta 60 MG Orally Once a day 1 capsule 24h Active Nitroglycerin 0.4 MG Sublingual prn chest pain. at onset. may repeat q5min, if 3 doses taken, need to report to er. 1 tablet Active Morphine Sulfate ER 60 MG Orally every 12 hrs 1 tablet 12h 20 Apr, 2017 28 days Active Oxycodone HCl 10 mg Orally 4 times a day 1 tablet 6h Apr, 28 days Active Xanax XR 1 MG Orally Once a day 1 tablet in the morning 24h Active RESULTS Name Result Date Reference Range FRED w/ Segmentals 2017-06-03 Echo 2D 2017-06-19 PROCEDURES Procedure Date Ordered Result Body Site INSERT/PLACE HEART CATHETER 2017-05-28 N/A EKG, TRACING (IN-HOUSE) 2017-05-28 N/A ELECTROCARDIOGRAM, TRACING May 28, 2017 INSTRUCTIONS MEDICATIONS ADMINISTERED No Known Medications MEDICAL [...]
--- OUTSIDE RECORDS SUMMARY | 2018-07-28 09:18 | XMS REPORT ---
Author Author PEYTON OWEN [facility] Address [address] [place] [address] Care Team Providers Care Sourcing Manager Name Role Phone PEYTON OWEN Unavailable PROBLEMS Type Condition ICD9-CM Code PBN28-DB Code Onset Dates Condition Status SNOMED Code Problem Anxiety F41.9 Active 98013503 Problem Generalized anxiety disorder F41.1 Active 70313999 Problem Mild episode of recurrent major depressive disorder F33.0 Active 543588762 Problem Chronic pain syndrome G89.4 Active 369411251 Problem Fibromyalgia M79.7 Active 648465003 Problem Conductive hearing loss of left 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 H90.12 Active 241953447 Problem Spondylitis, cervical M46.92 Active 999019727 Problem Chronic insomnia F51.04 Active 191581088 Problem Constipation K59.00 Active 85227843 Problem Rotator cuff arthropathy of left shoulder M12.812 Active [id number] Problem 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 Active 7324266676051861 Problem Sinusitis chronic, frontal J32.1 Active 78375977 Problem Coronary artery disease involving stockbridge coronary artery of stockbridge heart with unstable angina pectoris I25.110 Active 0063550754823 Problem Arthritis M19.90 Active 6228242 Problem Angina at rest I20.8 Active 610690298 Problem Needs smoking cessation education F17.200 Active 805338601 Problem 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 Active 381227186 Problem Hypertension, unspecified type I10 Active 12606050 Problem Inflammatory arthritis M19.90 Active 0179085 Problem Claudication of both lower extremities I73.9 Active 44021606 Problem Basal cell carcinoma of nose C44.311 Active 509341126 ALLERGIES No Information ENCOUNTERS Encounter Location Date Diagnosis [facility] [address] [facility] [id number] [address] Mar, [facility] [address], [place] [address] Mar, [facility] [id number] [place] [address] 27379- 8513 Mar, [facility] [address], [place] [address] Mar, [facility] [id number] [place] [address] 32547- 4729 Feb, [facility] [id number] [place] [address] 48956- 9881 Feb, [facility] [id number] [place] [address] 16576- 4776 Feb, [facility] [id number] [place] [address] 44820- 4115 Feb, [facility] [id number] [place] [address] 75175- 3993 Feb, Right otitis media with effusion H65.91 and Nevoid hyperpigmentation L81.9 [facility] [id number] [place] [address] 51727- 9204 Jan, [facility] [address] [id number] [address] Jan, [facility] [id number] [place] [address] 35347- 9967 Jan, [facility] [address], [place] [address] Jan, [facility] [id number] [place] [address] 58857- 1989 Jan, Fibromyalgia M79.7 [facility] [address], [place] [address] Jan, Rotator cuff arthropathy of left shoulder M12.812 [facility] [id number] [place] [address] 14873- 4733 Jan, Fibromyalgia M79.7 ; Spondylitis, cervical M46.92 ; Inflammatory arthritis M19.90 and Seborrheic keratoses L82.1 [facility] [id number] [place] [address] 21517- 4202 Jan, [facility] [id number] [place] [address] 56767- 3153 Jan, [place] [address] [address]70- 4085 Jan, Generalized anxiety disorder F41.1 and Mild episode of recurrent major depressive disorder F33.0 [facility] [id number] [place] [address] 12066- 6199 Dec, Chronic pain syndrome G89.4 [facility] [id number] [place] [address] 31575- 0525 Dec, [facility] [id number] [place] [address] 53602- 7585 Dec, Arthritis M19.90 ; Fibromyalgia M79.7 ; Anxiety F41.9 ; Dizziness R42 ; Conductive hearing loss of left 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 H90.12 and Encounter for immunization Z23 [facility] [id number] [place] [address] 64537- 2733 Dec, Rotator cuff arthropathy of left shoulder M12.812 [facility] [id number] [place] [address] 84300- 0267 Dec, Chronic pain syndrome G89.4 [facility] [id number] [place] [address] 29196- 6744 Dec, Rotator cuff arthropathy of left shoulder M12.812 [facility] [id number] [place] [address] 42949- 6264 Dec, Acute midline thoracic back pain M54.6 ; Chronic pain syndrome G89.4 and Dizziness R42 [facility] [address] [place] [address]- 3182 Dec, [facility] [id number] [place] [address] 17348- 9135 Dec, [facility] [id number] [place] [address] 04978- 1300 26 Nov, 2017 Rotator cuff arthropathy of left shoulder M12.812 [facility] [address] [address]117- 9966 19 Nov, 2017 Chronic insomnia F51.04 ; Non-healing skin lesion of nose L98.9 ; BPPV (benign paroxysmal positional vertigo), left H81.12 ; Constipation K59.00 and 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 [facility] [id number] [place] [address] 42043- 2440 10 Nov, 2017 Arthritis M19.90 and Anxiety F41.9 [facility] [id number] [place] [address] 53121- 2762 Nov, Generalized anxiety disorder F41.1 and Mild episode of recurrent major depressive disorder F33.0 [facility] [id number] [place] [address] 73377- 2875 Nov, Spondylitis, cervical M46.92 [facility] [id number] [place] [address] 18818- 0676 Oct, [facility] [id number] [place] [address] 81414- 6234 Oct, Basal cell carcinoma of nose C44.311 [facility] [id number] [place] [address] 09135- 8696 Oct, Spondylitis, cervical M46.92 and Anxiety F41.9 [facility] [id number] [place] [address] 91917- 3939 Oct, Generalized anxiety disorder F41.1 and Mild episode of recurrent major depressive disorder F33.0 [place] [address] [place] [address]- 6294 Oct, Rotator cuff arthropathy of left shoulder M12.812 [facility] [address] 93980- 4487 Oct, Spondylitis, cervical M46.92 [facility] [address] 77009- 9011 Oct, [facility] [address] 34874- 7058 Sep, Basal cell carcinoma of nose C44.311 [place] [address] 25172- 2237 Sep, Generalized anxiety disorder F41.1 and Mild episode of recurrent major depressive disorder F33.0 [facility] [address] 41007- 7512 Sep, Spondylitis, cervical M46.92 and Anxiety F41.9 [facility] [address] 39995- 3257 Sep, [facility] [address] 32484- 3467 Aug, Rotator cuff arthropathy of left shoulder M12.812 [facility] [id number] [place] [address] 10209- 3210 Aug, Lesion of nose J34.89 [facility] [address] 82795- 6190 Aug, Spondylitis, cervical M46.92 ; Fibromyalgia M79.7 and 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 [facility] [address] 37859- 2420 Aug, Fibromyalgia M79.7 [facility] [address] 56251- 0936 Aug, Fibromyalgia M79.7 [facility] [address] [place] [address]- 1450 Aug, [facility] [address], [place] [address] July, [facility] [id number] [place] [address] 65914- 4691 July, [facility] [id number] [place] [address] 50321- 3303 July, Arthritis M19.90 [facility] [id number] [place] [address] 76435- 3386 July, Inflammatory arthritis M19.90 [facility] [id number] [place] [address] 41425- 2175 Jun, Inflammatory arthritis M19.90 [facility] [id number] [place] [address] 74767- 1742 Jun, Arthritis M19.90 [facility] [id number] [place] [address] 65904- 9929 May, 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 ; Rheumatoid arthritis of left hip without organ or system involvement with positive rheumatoid factor M05.752 ; Chest pain, unspecified type R07.9 and Needs smoking cessation education F17.200 [facility] [address], [place] [address]- 0420 May, [facility] [id number] [place] [address] 21469- 2765 May, Arthritis M19.90 [facility] [address], [place] [address]- 4899 May, Chest pain, unspecified type R07.9 ; Dyspnea on exertion R06.09 ; Claudication of both lower extremities I73.9 ; Hypertension, unspecified type I10 and Tobacco use Z72.0 [facility] [address], [place] [address]- 1510 Apr, Arthritis M19.90 [facility] [address], [place] [address]- 5128 Apr, Arthritis M19.90 [facility] [id number] [place] [address] 83723- 6406 Apr, Sinusitis chronic, frontal J32.1 ; Coronary artery disease involving stockbridge coronary artery of stockbridge heart with unstable angina pectoris I25.110 ; Arthritis M19.90 and Fibromyalgia M79.7 [facility] [id number] [place] [address] 30114 2545 09 Apr, 2017 Sinusitis chronic, frontal J32.1 ; Coronary artery disease involving stockbridge coronary artery of stockbridge heart with unstable angina pectoris I25.110 ; Arthritis M19.90 and Fibromyalgia M79.7 [facility] [address] [address]- 76[address] Mar, [facility] [id number] [place] [address] 27527- 7181 Mar, Arthritis M19.90 [facility] [id number] [place] [address] 25838- 1658 Mar, Angina at rest I20.8 [facility] [id number] [place] [address] 70755- 7176 Mar, Arthritis M19.90 [facility] [id number] [place] [address] 60607- 9916 Mar, [facility] [address], [place] [address]- 6431 Feb, [facility] [id number] [place] [address] 12499- 7965 Feb, [facility] [id number] [place] [address] 61935- 9686 Feb, Arthritis M19.90 [facility] [address], [place] [address] Feb, Left foot pain M79.672 and Acute left ankle pain M25.572 [facility] [id number] [place] [address] 13265- 5664 Jan, [facility] [id number] [place] [address] 66630 -3035 Jan, Arthritis M19.90 ; Spondylitis, cervical M46.92 ; Fibromyalgia M79.7 and Family history of hypothyroidism Z83.49 [facility] [id number] [place] [address] 79406- 9931 Sep, Dental caries K02.9 [facility] [address] 16337- 1833 Aug, Dental examination Z01.20 [facility] [id number] [place] [address] 10310- 3406 Apr, Dental examination Z01.20 and Dental caries K02.9 [facility] [id number] [place] [address] 63386- 8884 Apr, Dental caries K02.9 [facility] [id number] [place] [address] 62351- 2076 Apr, Dental examination Z01.20 IMMUNIZATIONS No Known Immunizations SOCIAL HISTORY Never Assessed REASON FOR VISIT Controlled Med Refill 03/10/18 PLAN OF CARE VITAL SIGNS MEDICATIONS Medication Instructions Dosage Frequency Start Date End Date Duration Status Oxycodone HCl 5 mg Orally 3 times a day 1 tablet 8h Feb, 28 days Active RESULTS No Results PROCEDURES No [...]
--- OUTSIDE RECORDS SUMMARY | 2018-07-28 09:19 | XMS REPORT ---
Author Author PEYTON OWEN [facility] Address [address] [place] [address] Care Team Providers Care Financial Planning Consultant Name Role Phone PEYTON OWEN Unavailable PROBLEMS Type Condition ICD9-CM Code NXE56-YD Code Onset Dates Condition Status SNOMED Code Problem Anxiety F41.9 Active 85325111 Problem Generalized anxiety disorder F41.1 Active 16872286 Problem Mild episode of recurrent major depressive disorder F33.0 Active 205159382 Problem Chronic pain syndrome G89.4 Active 572669336 Problem Fibromyalgia M79.7 Active 396547384 Problem Conductive hearing loss of left 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 H90.12 Active 281114020 Problem Spondylitis, cervical M46.92 Active 968485381 Problem Chronic insomnia F51.04 Active 814010973 Problem Constipation K59.00 Active 46710868 Problem Rotator cuff arthropathy of left shoulder M12.812 Active 92806488880118668 Problem 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 Active 3793501256663212 Problem Sinusitis chronic, frontal J32.1 Active 91284597 Problem 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 Active 7239701053047 Problem Arthritis M19.90 Active 8387188 Problem Angina at rest I20.8 Active 143262899 Problem Needs smoking cessation education F17.200 Active 377411249 Problem 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 Active 932256673 Problem Hypertension, unspecified type I10 Active 05109296 Problem Inflammatory arthritis M19.90 Active 5190686 Problem Claudication of both lower extremities I73.9 Active 41413258 Problem Basal cell carcinoma of nose C44.311 Active 773419589 ALLERGIES No Information ENCOUNTERS Encounter Location Date Diagnosis [facility] [address] [facility] [id number] [address] Mar, [facility] [address] [address] Mar, [facility] [address] [place] [id number] [place] [address] 40556- 2969 Feb, [facility] [address] [place] [address] 21615- 5058 Jan, [facility] [address] [address] [id number] [place] [address] 01787- 0495 Jan, [facility] [address] [place] [address] 79430- 7454 Jan, [facility] [id number] [place] [address] 43494- 7424 Jan, [facility] [id number] [place] [address] 70929- 2187 Jan, Fibromyalgia M79.7 [facility] [id number] [place] [address] 46225- 0063 Jan, Rotator cuff arthropathy of left shoulder M12.812 [facility] [id number] [place] [address] 91129- 0598 14 Jan, 2018 Fibromyalgia M79.7 ; Spondylitis, cervical M46.92 ; Inflammatory arthritis M19.90 and Seborrheic keratoses L82.1 [facility] [address] [place] [address] 19394- 5612 Jan, [facility] [address] [place] [address] 37881- 2591 Jan, [facility] [id number] [place] [address] 09500- 8238 Jan, Generalized anxiety disorder F41.1 and Mild episode of recurrent major depressive disorder F33.0 [facility] [address] [address] Dec, Chronic pain syndrome G89.4 [facility] [id number] [place] [address] 65014- 3011 Dec, [place] [address] [address]- [address] Dec, Arthritis M19.90 ; Fibromyalgia M79.7 ; Anxiety F41.9 ; Dizziness R42 ; Conductive hearing loss of left 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 H90.12 and Encounter for immunization Z23 [place] [address] [address]- [address] Dec, Rotator cuff arthropathy of left shoulder M12.812 [place] [address] 05549- 6862 Dec, Chronic pain syndrome G89.4 [place] [address] 12599- 7498 Dec, Rotator cuff arthropathy of left shoulder M12.812 [place] [address] 74637- 1409 Dec, Acute midline thoracic back pain M54.6 ; Chronic pain syndrome G89.4 and Dizziness R42 [place] [address] 82915- 5764 Dec, [place] [address] 56954- 5755 Dec, [place] [address] 43050- 7534 Nov, Rotator cuff arthropathy of left shoulder M12.812 [place] [address] [place] [id number] [place] [address] 55361- 9704 19 Nov, 2017 Chronic insomnia F51.04 ; Non-healing skin lesion of nose L98.9 ; BPPV (benign paroxysmal positional vertigo), left H81.12 ; Constipation K59.00 and 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 [place] [address] 53951- 4759 10 Nov, 2017 Arthritis M19.90 and Anxiety F41.9 [facility] [address] [place] [address] 08949- 3146 Nov, Generalized anxiety disorder F41.1 and Mild episode of recurrent major depressive disorder F33.0 [facility] [address] [place] [address] 13707- 6361 Nov, Spondylitis, cervical M46.92 [facility] [address] [id number] [place] [address] 61157- 7396 Oct, [facility] [id number] [place] [address] 68643- 1455 Oct, Basal cell carcinoma of nose C44.311 [facility] [id number] [place] [address] 11390- 6050 Oct, Spondylitis, cervical M46.92 and Anxiety F41.9 [facility] [address] [id number] [place] [address] 57471- 4903 Oct, Generalized anxiety disorder F41.1 and Mild episode of recurrent major depressive disorder F33.0 [facility] [address] [id number] [place] [address] 45515- 1256 Oct, Rotator cuff arthropathy of left shoulder M12.812 [facility] [address] [address] [id number] [place] [address] 86568- 4362 Oct, Spondylitis, cervical M46.92 [facility] [address] [address] [id number] [place] [address] 43885- 8453 Oct, [facility] [address] [id number] [place] [address] 97582- 1258 Sep, Basal cell carcinoma of nose C44.311 [facility] [address] [id number] [place] [address] 85929- 0496 Sep, Generalized anxiety disorder F41.1 and Mild episode of recurrent major depressive disorder F33.0 [facility] [address] [id number] [place] [address] 42372- 0785 Sep, Spondylitis, cervical M46.92 and Anxiety F41.9 [facility] [address] [address] [id number] [place] [address] 07362- 3988 Sep, [facility] [address] [address] [id number] [place] [address] 60049- 6355 Aug, Rotator cuff arthropathy of left shoulder M12.812 [facility] [address] [id number] [place] [address] 19029- 5108 Aug, Lesion of nose J34.89 [facility] [address] [id number] [place] [address] 54991- 8890 Aug, Spondylitis, cervical M46.92 ; Fibromyalgia M79.7 and 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 [facility] [id number] [place] [address] 28279- 3593 Aug, Fibromyalgia M79.7 [facility] [address] [id number] [place] [address] 58342- 2738 Aug, Fibromyalgia M79.7 [facility] [address] [id number] [place] [address] 82954- 8252 Aug, [facility] [address] [address] [id number] [place] [address] 50840- 7789 July, [facility] [address] [address] [id number] [place] [address] 72069- 6495 July, [facility] [address] [address] [id number] [place] [address] 42053- 4810 July, Arthritis M19.90 [facility] [address] [address] [id number] [place] [address] 04787- 5033 July, Inflammatory arthritis M19.90 [facility] [address] [place] [address] 12052- 8731 Jun, Inflammatory arthritis M19.90 [facility] [address] [address] [id number] [place] [address] 77859- 1258 Jun, Arthritis M19.90 [place] [address] [place] [address] 63740- 1650 28 May, 2017 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 ; Rheumatoid arthritis of left hip without organ or system involvement with positive rheumatoid factor M05.752 ; Chest pain, unspecified type R07.9 and Needs smoking cessation education F17.200 [place] [address] [address] [id number] [place] [address] 24730- 4534 27 May, 2017 [place] [address] [id number] [place] [address] 74543- 4531 May, Arthritis M19.90 [place] [address] [id number] [place] [address] 08186- 2672 14 May, 2017 Chest pain, unspecified type R07.9 ; Dyspnea on exertion R06.09 ; Claudication of both lower extremities I73.9 ; Hypertension, unspecified type I10 and Tobacco use Z72.0 [place] [address] [id number] [place] [address] 94228- 9630 Apr, Arthritis M19.90 [place] [address] [id number] [place] [address] 43846- 7750 Apr, Arthritis M19.90 [place] [address] [place] [address] 95768- 4537 Apr, Sinusitis chronic, frontal J32.1 ; 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 ; Arthritis M19.90 and Fibromyalgia M79.7 [place] [address] [place] [address] 37667- 8621 09 Apr, 2017 Sinusitis chronic, frontal J32.1 ; 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 ; Arthritis M19.90 and Fibromyalgia M79.7 [place] [address] [place] [id number] [place] [address] 50521- 2092 Mar, [facility] [id number] [place] [address] 48528- 4611 Mar, Arthritis M19.90 [facility] [address] [address] [id number] [place] [address] 35857- 8879 Mar, Angina at rest I20.8 [facility] [address] 01461- 6749 Mar, Arthritis M19.90 [facility] [address] 69526- 5628 Mar, [facility] [address] 26597- 2314 Feb, [facility] [address] 66203- 4430 Feb, [facility] [address] 48525- 0894 Feb, Arthritis M19.90 [facility] [address] [address] [id number] [place] [address] 73967 -4115 Feb, Left foot pain M79.672 and Acute left ankle pain M25.572 [facility] [address] [id number] [place] [address] 66519- 1210 Jan, [facility] [address] [id number] [place] [address] 55952 -7531 Jan, Arthritis M19.90 ; Spondylitis, cervical M46.92 ; Fibromyalgia M79.7 and Family history of hypothyroidism Z83.49 [place] [address] [id number] [place] [address] 60533- 6810 Sep, Dental caries K02.9 [place] [address] [place] [id number] [place] [address] 12741- 0538 Aug, Dental examination Z01.20 [place] [address] 23172- 6253 Apr, Dental examination Z01.20 and Dental caries K02.9 [facility] [address] [facility] [id number] [place] [address]- 2348 Apr, Dental caries K02.9 [facility] [address] [facility] [id number] [place] [address]- 0848 08 Apr, 2015 Dental examination Z01.20 IMMUNIZATIONS No Known Immunizations SOCIAL HISTORY Never Assessed REASON FOR VISIT Controlled Med Refill 02/10/18 PLAN OF CARE VITAL SIGNS MEDICATIONS Medication Instructions Dosage Frequency Start Date End Date Duration Status Oxycodone HCl 5 MG Orally as directed 2 tablets in the morning, 1 tablet at noon, and 2 tablets in the evening Jan, 14 days Active RESULTS No Results PROCEDURES [...]
--- OUTSIDE RECORDS SUMMARY | 2018-07-28 09:19 | XMS REPORT ---
Author Author JOSS ABRAMS Organization [facility] Address [address] [place] [address] Care Team Providers Care Seamless Tube Drawer Name Role Phone ALIZA JOSS Unavailable PROBLEMS Type Condition ICD9-CM Code CRJ44-PE Code Onset Dates Condition Status SNOMED Code Problem Anxiety F41.9 Active 79443813 Problem Generalized anxiety disorder F41.1 Active 44832987 Problem Mild episode of recurrent major depressive disorder F33.0 Active 202567855 Problem Chronic pain syndrome G89.4 Active 438187123 Problem Fibromyalgia M79.7 Active 199095095 Problem Conductive hearing loss of left 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 H90.12 Active 960152266 Problem Spondylitis, cervical M46.92 Active 177319792 Problem Chronic insomnia F51.04 Active 576698324 Problem Constipation K59.00 Active 21305981 Problem Rotator cuff arthropathy of left shoulder M12.812 Active 02195569675029614 Problem 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 Active 2380010889811552 Problem Sinusitis chronic, frontal J32.1 Active 52220500 Problem Coronary artery disease involving ione coronary artery of ione heart with unstable angina pectoris I25.110 Active 7255357707206 Problem Arthritis M19.90 Active 5082483 Problem Angina at rest I20.8 Active 455103813 Problem Needs smoking cessation education F17.200 Active 421745555 Problem 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 Active 870269761 Problem Hypertension, unspecified type I10 Active 27692051 Problem Inflammatory arthritis M19.90 Active 0256493 Problem Claudication of both lower extremities I73.9 Active 11984752 Problem Basal cell carcinoma of nose C44.311 Active 942398777 ALLERGIES Substance Reaction Event Type Date Status Remeron nightmares Drug Allergy Feb, Active ENCOUNTERS Encounter Location Date Diagnosis [facility] [address] [facility] [id number] [place] [address] 33826- 5355 Mar, [facility] [id number] [place] [address] 75093- 4239 Mar, [facility] [id number] [place] [address] 170027- 1458 Mar, [facility] [id number] [place] [address] 14780- 1032 Mar, [facility] [id number] [place] [address] 74884- 8238 Feb, [facility] [id number] [place] [address] 96287- 9764 Feb, Right otitis media with effusion H65.91 and Nevoid hyperpigmentation L81.9 [facility] [id number] [place] [address] 60225- 7766 Jan, [facility] [id number] [place] [address] 25856- 7223 Jan, [facility] [id number] [place] [address] 32591- 7676 Jan, [facility] [id number] [place] [address] 30188- 7785 Jan, [facility] [id number] [place] [address] 93755- 7246 Jan, Fibromyalgia M79.7 [facility] [id number] [place] [address] 04222- 0032 15 Jan, 2018 Rotator cuff arthropathy of left shoulder M12.812 [facility] [id number] [place] [address] 55736- 6897 14 Jan, 2018 Fibromyalgia M79.7 ; Spondylitis, cervical M46.92 ; Inflammatory arthritis M19.90 and Seborrheic keratoses L82.1 [facility] [id number] [place] [address] 69210- 5602 09 Jan, 2018 [facility] [id number] [place] [address] 28001- 6517 Jan, [place] [address] 32630- 6616 Jan, Generalized anxiety disorder F41.1 and Mild episode of recurrent major depressive disorder F33.0 [place] [address] 75648- 0901 Dec, Chronic pain syndrome G89.4 [place] [address] 01743- 4372 Dec, [place] [address] 39964- 6974 Dec, Arthritis M19.90 ; Fibromyalgia M79.7 ; Anxiety F41.9 ; Dizziness R42 ; Conductive hearing loss of left 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 H90.12 and Encounter for immunization Z23 [place] [address] 31568- 9730 Dec, Rotator cuff arthropathy of left shoulder M12.812 [place] [address] 35998- 9478 Dec, Chronic pain syndrome G89.4 [place] [address] 26938- 8663 Dec, Rotator cuff arthropathy of left shoulder M12.812 [place] [address] 75144- 0394 Dec, Acute midline thoracic back pain M54.6 ; Chronic pain syndrome G89.4 and Dizziness R42 [place] [address] 75800- 4599 Dec, [facility] [address] 38751- 3760 Dec, [place] [address] 22692- 6867 Nov, Rotator cuff arthropathy of left shoulder M12.812 [facility] [id number] [place] [address] 63759- 5468 Nov, Chronic insomnia F51.04 ; Non-healing skin lesion of nose L98.9 ; BPPV (benign paroxysmal positional vertigo), left H81.12 ; Constipation K59.00 and 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 [facility] [address] 69852- 9998 Nov, Arthritis M19.90 and Anxiety F41.9 [place] [address] 23403- 4365 Nov, Generalized anxiety disorder F41.1 and Mild episode of recurrent major depressive disorder F33.0 [place] [address] 75545- 4172 Nov, Spondylitis, cervical M46.92 [facility] [address] 89633- 1721 Oct, [facility] [address] 96030- 6493 Oct, Basal cell carcinoma of nose C44.311 [place] [id number] [place] [address] 19740- 2267 Oct, Spondylitis, cervical M46.92 and Anxiety F41.9 [facility] [address] 47776- 5395 Oct, Generalized anxiety disorder F41.1 and Mild episode of recurrent major depressive disorder F33.0 [facility] [address] 25185- 7296 Oct, Rotator cuff arthropathy of left shoulder M12.812 [facility] [id number] [place] [address] 51614- 7173 Oct, Spondylitis, cervical M46.92 [facility] [address] [place] [address] [place] [address] 7461 Oct, [facility] [id number] [place] [address] 76037- 1497 Sep, Basal cell carcinoma of nose C44.311 [facility] [id number] [place] [address] 91100- 2033 Sep, Generalized anxiety disorder F41.1 and Mild episode of recurrent major depressive disorder F33.0 [facility] [id number] [place] [address] 49656- 1665 Sep, Spondylitis, cervical M46.92 and Anxiety F41.9 [place] [address] 84262- 5840 Sep, [place] [id number] [place] [address] 91394- 4127 Aug, Rotator cuff arthropathy of left shoulder M12.812 [place] [id number] [place] [address] 93934- 9267 Aug, Lesion of nose J34.89 [facility] [id number] [place] [address] 04489- 9505 Aug, Spondylitis, cervical M46.92 ; Fibromyalgia M79.7 and 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 [place] [id number] [place] [address] 72471- 7292 Aug, Fibromyalgia M79.7 [facility] [id number] [place] [address] 33581- 4680 Aug, Fibromyalgia M79.7 [facility] [id number] [place] [address] 53438- 5481 Aug, [facility] [id number] [place] [address] 04227- 1050 July, [facility] [id number] [place] [address] 31906- 2433 July, [place] [address] [place] [address] 9677 July, Arthritis M19.90 [facility] [id number] [place] [address] 44384- 5320 July, Inflammatory arthritis M19.90 [facility] [id number] [place] [address] 44101- 2572 Jun, Inflammatory arthritis M19.90 [facility] [id number] [place] [address] 75146- 9535 Jun, Arthritis M19.90 [place] [id number] [place] [address] 03415- 9413 May, 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 ; Rheumatoid arthritis of left hip without organ or system involvement with positive rheumatoid factor M05.752 ; Chest pain, unspecified type R07.9 and Needs smoking cessation education F17.200 [place] [address] [place] [address]- 4867 May, [place] [id number] [place] [address] 83558- 6128 May, Arthritis M19.90 [place] [id number] [place] [address] 18342- 2317 May, Chest pain, unspecified type R07.9 ; Dyspnea on exertion R06.09 ; Claudication of both lower extremities I73.9 ; Hypertension, unspecified type I10 and Tobacco use Z72.0 [place] [address] [place] [address]- 4198 Apr, Arthritis M19.90 [place] [id number] [place] [address] 37398- 3157 Apr, Arthritis M19.90 [place] [address] [place] [address]- 2573 Apr, Sinusitis chronic, frontal J32.1 ; Coronary artery disease involving ione coronary artery of ione heart with unstable angina pectoris I25.110 ; Arthritis M19.90 and Fibromyalgia M79.7 [facility] [id number] [place] [address] 85945- 2684 09 Apr, 2017 Sinusitis chronic, frontal J32.1 ; Coronary artery disease involving ione coronary artery of ione heart with unstable angina pectoris I25.110 ; Arthritis M19.90 and Fibromyalgia M79.7 [facility] [id number] [place] [address] 02458- 6971 Mar, [facility] [id number] [place] [address] 83322- 9976 Mar, Arthritis M19.90 [facility] [id number] [place] [address] 28405- 3393 Mar, Angina at rest I20.8 [facility] [address] 61532- 9806 Mar, Arthritis M19.90 [facility] [id number] [place] [address] 86869- 3101 Mar, [facility] [id number] [place] [address] 47010- 5762 Feb, [facility] [id number] [place] [address] 67226- 8059 Feb, [facility] [id number] [place] [address] 84924- 7072 Feb, Arthritis M19.90 [facility] [id number] [place] [address] 57984 -7036 Feb, Left foot pain M79.672 and Acute left ankle pain M25.572 [facility] [id number] [place] [address] 49747- 7419 Jan, [facility] [id number] [place] [address] 97840 -5436 Jan, Arthritis M19.90 ; Spondylitis, cervical M46.92 ; Fibromyalgia M79.7 and Family history of hypothyroidism Z83.49 [place] [id number] [place] [address] 75630- 2271 Sep, Dental caries K02.9 [place] [id number] [place] [address] 30480- 9393 Aug, Dental examination Z01.20 [place] [address] 08110- 0682 Apr, Dental examination Z01.20 and Dental caries K02.9 [place] [address] 72683- 0288 Apr, Dental caries K02.9 [place] [id number] [place] [address] 27616- 1374 Apr, Dental examination Z01.20 IMMUNIZATIONS No Known Immunizations SOCIAL HISTORY Never Assessed REASON FOR VISIT Lesion removal - Patricio PEREZ, Dr. Lackey had previously but the PT on prednisone but it ended up messing with her so she went to the ER 02/08/2016. - Patricio PEREZ PLAN OF CARE Activity Details Follow Up 4 Weeks Reason:cryo VITAL SIGNS Height 59.5 in 2018-02-17 Weight 106.6 lbs 2018-02-17 Temperature 98.1 degrees Fahrenheit 2018-02-17 Heart Rate 90 bpm 2018-02-17 Respiratory Rate 20 2018-02-17 Oximetry 97 % 2018-02-17 BMI 21.17 kg/m2 2018-02-17 Blood pressure systolic 122 mmHg 2018-02-17 Blood pressure diastolic 68 mmHg 2018-02-17 MEDICATIONS Medication Instructions Dosage Frequency Start Date End Date Duration Status Melatonin 3 MG Orally at bedtime 2 Oct, Active Trazodone HCl 100 mg Orally Once a day 1 tablet at bedtime 24h Nov, Active Cymbalta 60 mg Orally Once a day 2 capsule 24h Active PredniSONE 20 mg Orally Once a day 2 tablets 24h Feb, 5 days Active Clonidine HCl 0.1 MG Orally Twice a day 1 tablet 12h Jan, 30 day(s) Active Aspirin Childrens 81 MG Orally Once a day 1 tablet 24h Active Nebulizer Active Guaifenesin 400 mg Orally every 4 hrs 1 tablet as needed 4h Feb, Active Oxycodone HCl 5 MG Orally as directed 2 tablets in the morning, 1 tablet at noon, and 2 tablets in the evening Jan, 14 days Active Zyrtec Allergy 10 MG Orally Once a day 1 tablet 24h 30 day(s) Not- Taking Trelegy Ellipta by inhalation route Once a day 1 puff 24h Active Diclofenac Sodium 75 MG Orally Twice a day 1 tablet with food or milk 12h Dec, 14 Apr, 2018 30 day(s) Active Amitriptyline HCl 25 MG Orally Once a day at bedtime 1 tablet Oct, Active DuoNeb by inhalation route 4 times a day 6h Active Oxygen 2 L by inhalation route at bedtime Active Atorvastatin Calcium 20 MG Orally Once a day 1 tablet 24h Active RESULTS No Results PROCEDURES No Known [...]
--- OUTSIDE RECORDS SUMMARY | 2018-07-28 09:19 | XMS REPORT ---
Author Author PARISH HOLMAN Organization [facility] Address [address] [place] [address] Care Team Providers Care Property Field Inspector Name Role Phone PARISH HOLMAN Unavailable PROBLEMS Type Condition ICD9-CM Code HWH63-SP Code Onset Dates Condition Status SNOMED Code Problem Anxiety F41.9 Active 23255042 Problem Generalized anxiety disorder F41.1 Active 48934484 Problem Mild episode of recurrent major depressive disorder F33.0 Active 755090155 Problem Chronic pain syndrome G89.4 Active 541996752 Problem Fibromyalgia M79.7 Active 451347023 Problem Conductive hearing loss of left 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 H90.12 Active 315807206 Problem Spondylitis, cervical M46.92 Active 241212323 Problem Chronic insomnia F51.04 Active 055942041 Problem Constipation K59.00 Active 58205279 Problem Rotator cuff arthropathy of left shoulder M12.812 Active [id number] Problem 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 Active 4113355764558530 Problem Sinusitis chronic, frontal J32.1 Active 59723496 Problem Coronary artery disease involving [place] coronary artery of [place] heart with unstable angina pectoris I25.110 Active 2300423711738 Problem Arthritis M19.90 Active 1501450 Problem Angina at rest I20.8 Active 133559186 Problem Needs smoking cessation education F17.200 Active 525854430 Problem 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 Active 530718390 Problem Hypertension, unspecified type I10 Active 69769454 Problem Inflammatory arthritis M19.90 Active 1403748 Problem Claudication of both lower extremities I73.9 Active 62095266 Problem Basal cell carcinoma of nose C44.311 Active 843387475 ALLERGIES No Information ENCOUNTERS Encounter Location Date Diagnosis [facility] [address] [facility] [id number] [address] Mar, [facility] [address] [address] Mar, [facility] [id number] [place] [address] 90025- 6481 Feb, [facility] [id number] [place] [address] 09703- 6928 Jan, [facility] [id number] [place] [address] 60522- 6558 Jan, [facility] [id number] [place] [address] 12900- 8179 Jan, [facility] [id number] [place] [address] 05917- 6872 Jan, [facility] [id number] [place] [address] 03009- 8913 Jan, Fibromyalgia M79.7 [facility] [place] [id number] [place] [address] 19702- 7433 Jan, Rotator cuff arthropathy of left shoulder M12.812 [facility] [id number] [place] [address] 81572- 0596 14 Jan, 2018 Fibromyalgia M79.7 ; Spondylitis, cervical M46.92 ; Inflammatory arthritis M19.90 and Seborrheic keratoses L82.1 [facility] [id number] [place] [address] 78106- 0529 Jan, [facility] [place] [id number] [place] [address] 54954- 6995 Jan, [facility] [place] [id number] [place] [address] 79556- 4264 Jan, Generalized anxiety disorder F41.1 and Mild episode of recurrent major depressive disorder F33.0 [facility] [address], [place] [address] Dec, Chronic pain syndrome G89.4 [facility] [id number] [place] [address] Dec, [place] [address] [address]- 7992 Dec, Arthritis M19.90 ; Fibromyalgia M79.7 ; Anxiety F41.9 ; Dizziness R42 ; Conductive hearing loss of left 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 H90.12 and Encounter for immunization Z23 [place] [address] [address]- 2975 Dec, Rotator cuff arthropathy of left shoulder M12.812 [place] [address] 19743- 3734 Dec, Chronic pain syndrome G89.4 [place] [address] 21331- 5074 Dec, Rotator cuff arthropathy of left shoulder M12.812 [place] [address] [address]23- 1910 Dec, Acute midline thoracic back pain M54.6 ; Chronic pain syndrome G89.4 and Dizziness R42 [place] [address] 50138- 7562 Dec, [place] [id number] [place] [address] 91975- 9714 Dec, [place] [address] 34436- 0394 Nov, Rotator cuff arthropathy of left shoulder M12.812 [place] [address] [id number] [place] [address] 07158- 2659 Nov, Chronic insomnia F51.04 ; Non-healing skin lesion of nose L98.9 ; BPPV (benign paroxysmal positional vertigo), left H81.12 ; Constipation K59.00 and 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 [place] [address] 70699- 1575 Nov, Arthritis M19.90 and Anxiety F41.9 [facility] [id number] [place] [address] 13387- 3055 Nov, Generalized anxiety disorder F41.1 and Mild episode of recurrent major depressive disorder F33.0 [facility] [place] [id number] [place] [address] 78304- 3404 Nov, Spondylitis, cervical M46.92 [facility] [place] [id number] [place] [address] 50740- 9168 Oct, [facility] [id number] [place] [address] 53456- 5022 Oct, Basal cell carcinoma of nose C44.311 [facility] [id number] [place] [address] 98680- 4523 Oct, Spondylitis, cervical M46.92 and Anxiety F41.9 [facility] [id number] [place] [address] 42399- 7300 Oct, Generalized anxiety disorder F41.1 and Mild episode of recurrent major depressive disorder F33.0 [facility] [id number] [place] [address] 24712- 4190 Oct, Rotator cuff arthropathy of left shoulder M12.812 [facility] [id number] [place] [address] 35809- 9960 Oct, Spondylitis, cervical M46.92 [facility] [id number] [place] [address] 35379- 4665 Oct, [facility] [id number] [place] [address] 23795- 0569 Sep, Basal cell carcinoma of nose C44.311 [facility] [id number] [place] [address] 74100- 1007 Sep, Generalized anxiety disorder F41.1 and Mild episode of recurrent major depressive disorder F33.0 [facility] [id number] [place] [address] 94665- 3460 Sep, Spondylitis, cervical M46.92 and Anxiety F41.9 [facility] [id number] [place] [address] 67121- 4746 Sep, [facility] [id number] [place] [address] 17294- 7784 Aug, Rotator cuff arthropathy of left shoulder M12.812 [facility] [id number] [place] [address] 86215- 3164 Aug, Lesion of nose J34.89 [facility] [id number] [place] [address] 51031- 6993 Aug, Spondylitis, cervical M46.92 ; Fibromyalgia M79.7 and 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 [facility] [id number] [place] [address] 64948- 8416 Aug, Fibromyalgia M79.7 [facility] [id number] [place] [address] 51212- 6381 Aug, Fibromyalgia M79.7 [facility] [id number] [place] [address] 80093- 9667 Aug, [facility] [id number] [place] [address] 81542- 7590 July, [facility] [id number] [place] [address] 60247- 8274 July, [facility] [id number] [place] [address] 00878- 254 July, Arthritis M19.90 [facility] [id number] [place] [address] 83807- 6080 July, Inflammatory arthritis M19.90 [facility] [address] [place] [address] 45258- 4871 Jun, Inflammatory arthritis M19.90 [facility] [id number] [place] [address] 67370- 1740 Jun, Arthritis M19.90 [place] [address] [id number] [place] [address] 34444- 3305 28 May, 2017 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 ; Rheumatoid arthritis of left hip without organ or system involvement with positive rheumatoid factor M05.752 ; Chest pain, unspecified type R07.9 and Needs smoking cessation education F17.200 [place] [id number] [place] [address] 80720- 4694 27 May, 2017 [place] [address] [address] [id number] [place] [address] 42610- 4977 May, Arthritis M19.90 [place] [address] [id number] [place] [address] 02235- 4949 14 May, 2017 Chest pain, unspecified type R07.9 ; Dyspnea on exertion R06.09 ; Claudication of both lower extremities I73.9 ; Hypertension, unspecified type I10 and Tobacco use Z72.0 [place] [address] [address] [id number] [place] [address] 42033- 7395 Apr, Arthritis M19.90 [place] [address] [address] [id number] [place] [address] 81523- 4160 16 Apr, 2017 Arthritis M19.90 [place] [address] [address] [id number] [place] [address] 82763- 3179 Apr, Sinusitis chronic, frontal J32.1 ; Coronary artery disease involving [place] coronary artery of [place] heart with unstable angina pectoris I25.110 ; Arthritis M19.90 and Fibromyalgia M79.7 [place] [address] [address] [id number] [place] [address] 74908- 0798 09 Apr, 2017 Sinusitis chronic, frontal J32.1 ; Coronary artery disease involving [place] coronary artery of [place] heart with unstable angina pectoris I25.110 ; Arthritis M19.90 and Fibromyalgia M79.7 [place] [address] [address] [id number] [place] [address] 32560- 2813 Mar, [facility] [id number] [place] [address] 24775- 9981 Mar, Arthritis M19.90 [facility] [id number] [place] [address] 27278- 8309 Mar, Angina at rest I20.8 [facility] [address] 59247- 7091 Mar, Arthritis M19.90 [facility] [id number] [place] [address] 59250- 0575 Mar, [facility] [address] 37038- 2857 Feb, [facility] [address] 17548- 9652 Feb, [facility] [address] 37294- 9990 Feb, Arthritis M19.90 [facility] [id number] [place] [address] 13172 -1971 Feb, Left foot pain M79.672 and Acute left ankle pain M25.572 [facility] [id number] [place] [address] 93635- 5516 Jan, [facility] [id number] [place] [address] 88629 -0092 Jan, Arthritis M19.90 ; Spondylitis, cervical M46.92 ; Fibromyalgia M79.7 and Family history of hypothyroidism Z83.49 [place] [address] [id number] [place] [address] 65085- 3006 Sep, Dental caries K02.9 [place] [address] [place] [id number] [place] [address] 55636- 5255 Aug, Dental examination Z01.20 [place] [address] 41082- 7857 Apr, Dental examination Z01.20 and Dental caries K02.9 [facility] [address] [facility] [id number] [place] [address]- 9854 Apr, Dental caries K02.9 [facility] [address] [facility] [id number] [place] [address]- 4802 Apr, Dental examination Z01.20 IMMUNIZATIONS No Known Immunizations SOCIAL HISTORY Never Assessed REASON FOR VISIT PLAN OF CARE VITAL SIGNS MEDICATIONS Unknown [...] Pain observation 2013 Hospitalization History Cervical Surgery 1998
--- OUTSIDE RECORDS SUMMARY | 2018-07-28 09:19 | XMS REPORT ---
Author Author JOSS ABRAMS Organization [facility] Address [address] [place] [address] Care Team Providers Care Automatic Line Set Up Mechanic Name Role Phone ALIZA JOSS Unavailable PROBLEMS Type Condition ICD9-CM Code [id number]-OS Code Onset Dates Condition Status SNOMED Code Problem Anxiety F41.9 Active 07125721 Problem Generalized anxiety disorder F41.1 Active 90628920 Problem Mild episode of recurrent major depressive disorder F33.0 Active 115013956 Problem Chronic pain syndrome G89.4 Active 495468270 Problem Fibromyalgia M79.7 Active 584480189 Problem Conductive hearing loss of left 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 H90.12 Active 813658251 Problem Spondylitis, cervical M46.92 Active 412045246 Problem Chronic insomnia F51.04 Active 489913231 Problem Constipation K59.00 Active 43521284 Problem Rotator cuff arthropathy of left shoulder M12.812 Active 76403614139628422 Problem 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 Active 9878771331826299 Problem Sinusitis chronic, frontal J32.1 Active 34777467 Problem Coronary artery disease involving hoopa coronary artery of hoopa heart with unstable angina pectoris I25.110 Active 1116742995195 Problem Arthritis M19.90 Active 8016953 Problem Angina at rest I20.8 Active 518779949 Problem Needs smoking cessation education F17.200 Active 714392290 Problem 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 Active 440504084 Problem Hypertension, unspecified type I10 Active 23697599 Problem Inflammatory arthritis M19.90 Active 9672913 Problem Claudication of both lower extremities I73.9 Active 53119279 Problem Basal cell carcinoma of nose C44.311 Active [id number] ALLERGIES No Information ENCOUNTERS Encounter Location Date Diagnosis [facility] [address] [facility] [id number] [address] Mar, [facility] [address] [address] Mar, [facility] [address] [id number] [place] [address] 28213- 2732 Feb, [facility] [id number] [place] [address] 60284- 1008 Jan, [facility] [id number] [place] [address] 18663- 9216 Jan, [facility] [id number] [place] [address] 89588- 6120 Jan, [facility] [id number] [place] [address] 20338- 0110 Jan, Fibromyalgia M79.7 [facility] [id number] [place] [address] 13507- 0642 Jan, Rotator cuff arthropathy of left shoulder M12.812 [facility] [id number] [place] [address] 85820- 7842 14 Jan, 2018 Fibromyalgia M79.7 ; Spondylitis, cervical M46.92 ; Inflammatory arthritis M19.90 and Seborrheic keratoses L82.1 [facility] [id number] [place] [address] 62670- 9720 Jan, [facility] [id number] [place] [address] 29746- 5489 Jan, [facility] [id number] [place] [address] 61475- 0584 Jan, Generalized anxiety disorder F41.1 and Mild episode of recurrent major depressive disorder F33.0 [facility] [id number] [place] [address] 92796- 4900 Dec, Chronic pain syndrome G89.4 [facility] [id number] [place] [address] 14733- 6247 Dec, [facility] [address] [address]87- 1428 Dec, Arthritis M19.90 ; Fibromyalgia M79.7 ; Anxiety F41.9 ; Dizziness R42 ; Conductive hearing loss of left 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 H90.12 and Encounter for immunization Z23 [facility] [address] 09793- 2386 17 Dec, 2017 Rotator cuff arthropathy of left shoulder M12.812 [facility] [address] 99289- 1158 Dec, Chronic pain syndrome G89.4 [place] [address] 56687- 5265 Dec, Rotator cuff arthropathy of left shoulder M12.812 [place] [address] 50563- 9063 02 Dec, 2017 Acute midline thoracic back pain M54.6 ; Chronic pain syndrome G89.4 and Dizziness R42 [place] [address] [address]12- 7507 Dec, [place] [address] 95781- 2541 Dec, [place] [address] 86275- 1677 26 Nov, 2017 Rotator cuff arthropathy of left shoulder M12.812 [place] [address] 54433- 4074 19 Nov, 2017 Chronic insomnia F51.04 ; Non-healing skin lesion of nose L98.9 ; BPPV (benign paroxysmal positional vertigo), left H81.12 ; Constipation K59.00 and 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 [place] [address] [address]97- 1990 10 Nov, 2017 Arthritis M19.90 and Anxiety F41.9 [place] [address] 04842- 0373 Nov, Generalized anxiety disorder F41.1 and Mild episode of recurrent major depressive disorder F33.0 [facility] [id number] [place] [address] 03962- 9631 Nov, Spondylitis, cervical M46.92 [facility] [id number] [place] [address] 04225- 8884 Oct, [facility] [address] 02255- 1228 Oct, Basal cell carcinoma of nose C44.311 [facility] [id number] [place] [address] 65515- 3773 Oct, Spondylitis, cervical M46.92 and Anxiety F41.9 [place] [id number] [place] [address] 56847- 3927 Oct, Generalized anxiety disorder F41.1 and Mild episode of recurrent major depressive disorder F33.0 [facility] [id number] [place] [address] 77461- 7171 Oct, Rotator cuff arthropathy of left shoulder M12.812 [place] [id number] [place] [address] 05154- 2700 Oct, Spondylitis, cervical M46.92 [facility] [id number] [place] [address] 13222- 6613 Oct, [facility] [id number] [place] [address] 10270- 1536 Sep, Basal cell carcinoma of nose C44.311 [facility] [id number] [place] [address] 95614- 8138 Sep, Generalized anxiety disorder F41.1 and Mild episode of recurrent major depressive disorder F33.0 [facility] [address] [place] [address] 05003- 2901 Sep, Spondylitis, cervical M46.92 and Anxiety F41.9 [facility] [id number] [place] [address] 77434- 0173 Sep, [facility] [id number] [place] [address] 70131- 7940 Aug, Rotator cuff arthropathy of left shoulder M12.812 [facility] [id number] [place] [address] 44523- 6799 Aug, Lesion of nose J34.89 [facility] [id number] [place] [address] 70421- 5449 Aug, Spondylitis, cervical M46.92 ; Fibromyalgia M79.7 and 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 [facility] [id number] [place] [address] 13847- 4620 Aug, Fibromyalgia M79.7 [facility] [id number] [place] [address] 69034- 5792 Aug, Fibromyalgia M79.7 [facility] [id number] [place] [address] 20941- 4487 Aug, [facility] [id number] [place] [address] 39393- 2123 July, [facility] [id number] [place] [address] 84663- 6614 July, [facility] [id number] [place] [address] 71096- 9074 July, Arthritis M19.90 [facility] [id number] [place] [address] 86400- 5475 July, Inflammatory arthritis M19.90 [facility] [id number] [place] [address] 54370- 3538 Jun, Inflammatory arthritis M19.90 [facility] [id number] [place] [address] 92348- 8695 Jun, Arthritis M19.90 [facility] [id number] [place] [address] 74829- 6888 28 May, 2017 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 ; Rheumatoid arthritis of left hip without organ or system involvement with positive rheumatoid factor M05.752 ; Chest pain, unspecified type R07.9 and Needs smoking cessation education F17.200 [place] [id number] [place] [address] 02232- 3834 May, [place] [id number] [place] [address] 92185- 4693 May, Arthritis M19.90 [place] [id number] [place] [address] 73797- 9509 14 May, 2017 Chest pain, unspecified type R07.9 ; Dyspnea on exertion R06.09 ; Claudication of both lower extremities I73.9 ; Hypertension, unspecified type I10 and Tobacco use Z72.0 [place] [id number] [place] [address] 25442- 9346 Apr, Arthritis M19.90 [place] [id number] [place] [address] 91883- 0876 16 Apr, 2017 Arthritis M19.90 [place] [id number] [place] [address] 99704- 7295 12 Apr, 2017 Sinusitis chronic, frontal J32.1 ; Coronary artery disease involving hoopa coronary artery of hoopa heart with unstable angina pectoris I25.110 ; Arthritis M19.90 and Fibromyalgia M79.7 [place] [address] [place] [address] 40241- 9569 09 Apr, 2017 Sinusitis chronic, frontal J32.1 ; Coronary artery disease involving hoopa coronary artery of hoopa heart with unstable angina pectoris I25.110 ; Arthritis M19.90 and Fibromyalgia M79.7 [place] [address] [place] [address] 67465- 3709 Mar, [place] [id number] [place] [address] 95361- 0653 Mar, Arthritis M19.90 [facility] [address] [address]1 Mar, Angina at rest I20.8 [facility] [id number] [place] [address] 72367- 5565 Mar, Arthritis M19.90 [facility] [id number] [place] [address] 18279- 7472 Mar, [facility] [id number] [place] [address] 93244- 6326 Feb, [facility] [id number] [place] [address] 46805- 2170 Feb, [facility] [id number] [place] [address] 92955- 3674 Feb, Arthritis M19.90 [facility] [id number] [place] [address] 62837 -5079 Feb, Left foot pain M79.672 and Acute left ankle pain M25.572 [facility] [id number] [place] [address] 78880- 5365 Jan, [facility] [address] [place] [address] 46254 -0024 Jan, Arthritis M19.90 ; Spondylitis, cervical M46.92 ; Fibromyalgia M79.7 and Family history of hypothyroidism Z83.49 [facility] [address] [place] [address] 39042- 2104 Sep, Dental caries K02.9 [place] [id number] [place] [address] 37821- 5223 Aug, Dental examination Z01.20 [place] [address] [place] [address] 05290- 1367 Apr, Dental examination Z01.20 and Dental caries K02.9 [place] [address] [place] [id number] [address]- 6701 16 Apr, 2015 Dental caries K02.9 [facility] [address] [facility] [id number] [address]- 4946 08 Apr, 2015 Dental examination Z01.20 IMMUNIZATIONS No Known Immunizations SOCIAL HISTORY Never Assessed REASON FOR VISIT controlled med PLAN OF CARE VITAL SIGNS MEDICATIONS Unknown [...]
--- OUTSIDE RECORDS SUMMARY | 2018-07-28 09:20 | XMS REPORT ---
Author Author BARRIE YUNG Organization [facility] Address [address] [place] [address] Care Team Providers Care Senior Internet Sales Consultant Name Role Phone BARRIE YUNG Unavailable PROBLEMS Type Condition ICD9-CM Code [id number] Code Onset Dates Condition Status SNOMED Code Problem Anxiety F41.9 Active 77507657 Problem Generalized anxiety disorder F41.1 Active 13028687 Problem Mild episode of recurrent major depressive disorder F33.0 Active 637899485 Problem Chronic pain syndrome G89.4 Active 651064208 Problem Fibromyalgia M79.7 Active 759715789 Problem Conductive hearing loss of left 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 H90.12 Active 113753753 Problem Spondylitis, cervical M46.92 Active 935146193 Problem Chronic insomnia F51.04 Active 572447969 Problem Constipation K59.00 Active 84028903 Problem Rotator cuff arthropathy of left shoulder M12.812 Active 95364870965291296 Problem 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 Active 8493952280436087 Problem Sinusitis chronic, frontal J32.1 Active 75751405 Problem Coronary artery disease involving [place] coronary artery of [place] heart with unstable angina pectoris I25.110 Active 0048548542510 Problem Arthritis M19.90 Active 5304457 Problem Angina at rest I20.8 Active 681576660 Problem Needs smoking cessation education F17.200 Active 689677318 Problem 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 Active 361181156 Problem Hypertension, unspecified type I10 Active 49979599 Problem Inflammatory arthritis M19.90 Active 0416400 Problem Claudication of both lower extremities I73.9 Active 77915915 Problem Basal cell carcinoma of nose C44.311 Active 931661278 ALLERGIES No Information ENCOUNTERS Encounter Location Date Diagnosis [facility] [address] [facility] [id number] [address] Mar, [facility] [address] [place] [address] 81469- 7767 Jan, [facility] [id number] [place] [address] 89220- 3811 Jan, [facility] [id number] [place] [address] 29163- 1056 Jan, [facility] [id number] [place] [address] 67720- 8585 Jan, [facility] [id number] [place] [address] 54181- 6345 Jan, [facility] [id number] [place] [address] 51099- 9851 Jan, Generalized anxiety disorder F41.1 and Mild episode of recurrent major depressive disorder F33.0 [place] [id number] [place] [address] 29653- 2105 Dec, Chronic pain syndrome G89.4 [facility] [id number] [place] [address] 97046- 6319 Dec, [facility] [id number] [place] [address] 79115- 7030 Dec, Arthritis M19.90 ; Fibromyalgia M79.7 ; Anxiety F41.9 ; Dizziness R42 ; Conductive hearing loss of left 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 H90.12 and Encounter for immunization Z23 [facility] [id number] [place] [address] 15985- 5601 Dec, Rotator cuff arthropathy of left shoulder M12.812 [facility] [id number] [place] [address] 53605- 2650 Dec, Chronic pain syndrome G89.4 [facility] [address] [place] [address] 62763- 9701 Dec, Rotator cuff arthropathy of left shoulder M12.812 [facility] [id number] [place] [address] 65397- 5850 Dec, Acute midline thoracic back pain M54.6 ; Chronic pain syndrome G89.4 and Dizziness R42 [facility] [address] 38259- 4009 Dec, [place] [id number] [place] [address] 41620- 1911 Dec, [place] [address] 96567- 4964 Nov, Rotator cuff arthropathy of left shoulder M12.812 [place] [address] 74587- 4655 19 Nov, 2017 Chronic insomnia F51.04 ; Non-healing skin lesion of nose L98.9 ; BPPV (benign paroxysmal positional vertigo), left H81.12 ; Constipation K59.00 and 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 [place] [address] 89467- 1507 Nov, Arthritis M19.90 and Anxiety F41.9 [place] [address] 25070- 7636 Nov, Generalized anxiety disorder F41.1 and Mild episode of recurrent major depressive disorder F33.0 [place] [place] [id number] [place] [address] 76122- 5670 Nov, Spondylitis, cervical M46.92 [place] [address] [place] [address] 76734- 8486 Oct, [facility] [address] 38511- 6137 Oct, Basal cell carcinoma of nose C44.311 [place] [address] [place] [address] 88683- 5871 Oct, Spondylitis, cervical M46.92 and Anxiety F41.9 [place] [address] 00415- 3162 Oct, Generalized anxiety disorder F41.1 and Mild episode of recurrent major depressive disorder F33.0 [facility] [id number] [place] [address] 72486- 0350 Oct, Rotator cuff arthropathy of left shoulder M12.812 [facility] [address] [place] [address] 64303- 4072 Oct, Spondylitis, cervical M46.92 [facility] [address] [place] [address] 00905- 3791 Oct, [facility] [address] 24001- 7147 Sep, Basal cell carcinoma of nose C44.311 [place] [address] [place] [address] 11012- 5478 Sep, Generalized anxiety disorder F41.1 and Mild episode of recurrent major depressive disorder F33.0 [facility] [id number] [place] [address] 49096- 1316 Sep, Spondylitis, cervical M46.92 and Anxiety F41.9 [place] [address] [place] [address] 48404- 8231 Sep, [facility] [address] [place] [address] 10864- 8757 Aug, Rotator cuff arthropathy of left shoulder M12.812 [facility] [address] [place] [address] 10687- 1824 Aug, Lesion of nose J34.89 [facility] [address] [place] [address] 92446- 3514 Aug, Spondylitis, cervical M46.92 ; Fibromyalgia M79.7 and 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 [facility] [address] [place] [address] 82666- 5594 Aug, Fibromyalgia M79.7 [place] [address] [address]- 7788 Aug, Fibromyalgia M79.7 [facility] [address] [address]- 6006 Aug, [facility] [address] [address]- 1817 July, [facility] [address] [address]- 0875 July, [facility] [address] [address]- 0010 July, Arthritis M19.90 [facility] [address] [address]- 1741 July, Inflammatory arthritis M19.90 [facility] [address] [address]- 8077 Jun, Inflammatory arthritis M19.90 [facility] [address] [address]- 0182 Jun, Arthritis M19.90 [facility] [address] [address]- 4580 May, 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 ; Rheumatoid arthritis of left hip without organ or system involvement with positive rheumatoid factor M05.752 ; Chest pain, unspecified type R07.9 and Needs smoking cessation education F17.200 [facility] [id number] [address]- 1853 May, [facility] [address] [address]- 5786 May, Arthritis M19.90 [facility] [id number] [address]- 9181 May, Chest pain, unspecified type R07.9 ; Dyspnea on exertion R06.09 ; Claudication of both lower extremities I73.9 ; Hypertension, unspecified type I10 and Tobacco use Z72.0 [facility] [id number] [place] [address] 47643- 7560 Apr, Arthritis M19.90 [facility] [address] [place] [address] 04380- 2997 16 Apr, 2017 Arthritis M19.90 [facility] [address] [place] [address] 70639- 1069 Apr, Sinusitis chronic, frontal J32.1 ; Coronary artery disease involving [place] coronary artery of [place] heart with unstable angina pectoris I25.110 ; Arthritis M19.90 and Fibromyalgia M79.7 [facility] [address] [place] [address] 55052- 0468 09 Apr, 2017 Sinusitis chronic, frontal J32.1 ; Coronary artery disease involving [place] coronary artery of [place] heart with unstable angina pectoris I25.110 ; Arthritis M19.90 and Fibromyalgia M79.7 [facility] [address] [place] [address] 15375- 3902 Mar, [facility] [address] [place] [address] 19706- 9524 Mar, Arthritis M19.90 [facility] [address] [place] [address] 39822- 3693 Mar, Angina at rest I20.8 [facility] [address] [place] [address] 91774- 7688 Mar, Arthritis M19.90 [facility] [address] [place] [address] 60725- 2930 Mar, [facility] [id number] [place] [address] 48626- 3331 Feb, [facility] [address] [place] [address] 21911- 8878 Feb, [facility] [address] [place] [address] 64400- 7434 Feb, Arthritis M19.90 [facility] [address] [place] [address] 80878 -6757 Feb, Left foot pain M79.672 and Acute left ankle pain M25.572 [place] [address] [place] [address] 98278- 9533 Jan, [facility] [address] [place] [address] 25419 -4057 Jan, Arthritis M19.90 ; Spondylitis, cervical M46.92 ; Fibromyalgia M79.7 and Family history of hypothyroidism Z83.49 [place] [address] [place] [address] 54100- 7373 Sep, Dental caries K02.9 [place] [address] [place] [address] 14469- 9589 Aug, Dental examination Z01.20 [place] [address] [place] [address] 04837- 1784 Apr, Dental examination Z01.20 and Dental caries K02.9 [place] [address] [place] [address] 75816- 3468 Apr, Dental caries K02.9 [place] [address] [place] [address] 28403- 1061 Apr, Dental examination Z01.20 IMMUNIZATIONS No Known Immunizations SOCIAL HISTORY Never Assessed REASON FOR VISIT Controlled Med Refill 01/27/18 PLAN OF CARE VITAL SIGNS MEDICATIONS Medication Instructions Dosage Frequency Start Date End Date Duration Status Oxycodone HCl 10 mg Orally 3 times a day 1 tablet 8h Jan, 14 days Active RESULTS No Results [...]
--- OUTSIDE RECORDS SUMMARY | 2018-07-28 09:20 | XMS REPORT ---
Author Author YANNICK GOMEZ Organization [facility] Address [address] [place] [address] Care Team Providers Care Liaison Engineer Name Role Phone YANNICK GOMEZ Unavailable PROBLEMS Type Condition ICD9-CM Code [id number] Code Onset Dates Condition Status SNOMED Code Problem Anxiety F41.9 Active 13300866 Problem Generalized anxiety disorder F41.1 Active 17028384 Problem Mild episode of recurrent major depressive disorder F33.0 Active 458721501 Problem Chronic pain syndrome G89.4 Active 765189935 Problem Fibromyalgia M79.7 Active 454105979 Problem Conductive hearing loss of left 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 H90.12 Active 934471988 Problem Spondylitis, cervical M46.92 Active 609849718 Problem Chronic insomnia F51.04 Active 742497552 Problem Constipation K59.00 Active 91466618 Problem Rotator cuff arthropathy of left shoulder M12.812 Active 48716604003240243 Problem 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 Active 2296603761067209 Problem Sinusitis chronic, frontal J32.1 Active 12195820 Problem Coronary artery disease involving [place] coronary artery of [place] heart with unstable angina pectoris I25.110 Active 7299276431123 Problem Arthritis M19.90 Active 8445361 Problem Angina at rest I20.8 Active 295998701 Problem Needs smoking cessation education F17.200 Active 152882577 Problem 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 Active 443462313 Problem Hypertension, unspecified type I10 Active 43133139 Problem Inflammatory arthritis M19.90 Active 5800594 Problem Claudication of both lower extremities I73.9 Active 11847999 Problem Basal cell carcinoma of nose C44.311 Active 171957011 ALLERGIES No Information ENCOUNTERS Encounter Location Date Diagnosis [facility] [address] [facility] [id number] [address] 8279 Mar, [facility] [address] [place] [address] 37893- 8974 Jan, [facility] [id number] [place] [address] 68235- 6761 Jan, [facility] [id number] [place] [address] 83157- 1508 Jan, [facility] [address] 46760- 8287 Jan, Generalized anxiety disorder F41.1 and Mild episode of recurrent major depressive disorder F33.0 [facility] [id number] [place] [address] 31238- 4641 Dec, Chronic pain syndrome G89.4 [facility] [place] [id number] [place] [address] 13052- 4466 Dec, [facility] [id number] [place] [address] 78481- 1671 Dec, Arthritis M19.90 ; Fibromyalgia M79.7 ; Anxiety F41.9 ; Dizziness R42 ; Conductive hearing loss of left 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 H90.12 and Encounter for immunization Z23 [facility] [place] [id number] [place] [address] 27231- 1178 Dec, Rotator cuff arthropathy of left shoulder M12.812 [facility] [place] [id number] [place] [address] 82994- 9827 Dec, Chronic pain syndrome G89.4 [facility] [id number] [place] [address] 55391- 6820 Dec, Rotator cuff arthropathy of left shoulder M12.812 [facility] [place] [id number] [place] [address] 03295- 7720 Dec, Acute midline thoracic back pain M54.6 ; Chronic pain syndrome G89.4 and Dizziness R42 [facility] [id number] [place] [address] 69678- 5427 Dec, [facility] [id number] [place] [address] 35856- 1210 Dec, [facility] [address] 30163- 2377 Nov, Rotator cuff arthropathy of left shoulder M12.812 [facility] [place] [id number] [place] [address] 23291- 0583 19 Nov, 2017 Chronic insomnia F51.04 ; Non-healing skin lesion of nose L98.9 ; BPPV (benign paroxysmal positional vertigo), left H81.12 ; Constipation K59.00 and 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 [facility] [address] 66159- 5898 Nov, Arthritis M19.90 and Anxiety F41.9 [facility] [address] 99812- 8394 Nov, Generalized anxiety disorder F41.1 and Mild episode of recurrent major depressive disorder F33.0 [facility] [id number] [place] [address] 65841- 1494 Nov, Spondylitis, cervical M46.92 [facility] [place] [id number] [place] [address] 03380- 2184 Oct, [facility] [place] [id number] [place] [address] 33511- 4776 Oct, Basal cell carcinoma of nose C44.311 [facility] [place] [id number] [place] [address] 68482- 7828 Oct, Spondylitis, cervical M46.92 and Anxiety F41.9 [facility] [place] [id number] [place] [address] 51784- 8579 Oct, Generalized anxiety disorder F41.1 and Mild episode of recurrent major depressive disorder F33.0 [facility] [place] [id number] [place] [address] 11556- 3461 Oct, Rotator cuff arthropathy of left shoulder M12.812 [facility] [id number] [place] [address] 42413- 7078 Oct, Spondylitis, cervical M46.92 [facility] [id number] [place] [address] 44214- 8084 Oct, [facility] [id number] [place] [address] 93163- 8759 Sep, Basal cell carcinoma of nose C44.311 [facility] [place] [id number] [place] [address] 44644- 6739 Sep, Generalized anxiety disorder F41.1 and Mild episode of recurrent major depressive disorder F33.0 [facility] [place] [id number] [place] [address] 17023- 4567 Sep, Spondylitis, cervical M46.92 and Anxiety F41.9 [facility] [place] [id number] [place] [address] 33407- 5946 Sep, [facility] [place] [id number] [place] [address] 06818- 7303 Aug, Rotator cuff arthropathy of left shoulder M12.812 [facility] [place] [id number] [place] [address] 89791- 6525 Aug, Lesion of nose J34.89 [facility] [place] [id number] [place] [address] 75786- 2462 Aug, Spondylitis, cervical M46.92 ; Fibromyalgia M79.7 and 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 [facility] [id number] [place] [address] 81917- 3706 Aug, Fibromyalgia M79.7 [facility] [id number] [place] [address] 62999- 6476 Aug, Fibromyalgia M79.7 [facility] [id number] [place] [address] 47531- 6290 Aug, [facility] [address], [place] [address]- 3384 July, [facility] [address], [place] [address]- 7849 July, [facility] [address], [place] [address]- 4401 July, Arthritis M19.90 [facility] [id number] [place] [address] 86293- 1767 July, Inflammatory arthritis M19.90 [facility] [address], [place] [address]- 6439 Jun, Inflammatory arthritis M19.90 [facility] [address], [place] [address]- 6963 Jun, Arthritis M19.90 [facility] [address] [place] [address] 28586- 3295 May, 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 ; Rheumatoid arthritis of left hip without organ or system involvement with positive rheumatoid factor M05.752 ; Chest pain, unspecified type R07.9 and Needs smoking cessation education F17.200 [facility] [address], [place] [address]- 9429 May, [facility] [address], [place] [address]- 2165 May, Arthritis M19.90 [facility] [id number], [place] [address]- 1954 May, Chest pain, unspecified type R07.9 ; Dyspnea on exertion R06.09 ; Claudication of both lower extremities I73.9 ; Hypertension, unspecified type I10 and Tobacco use Z72.0 [facility] [address], [place] [address]- 8342 Apr, Arthritis M19.90 [facility] [address] [address]- 3876 16 Apr, 2017 Arthritis M19.90 [facility] [id number] [place] [address] 23411- 1743 12 Apr, 2017 Sinusitis chronic, frontal J32.1 ; Coronary artery disease involving nez [place] coronary artery of nez perce heart with unstable angina pectoris I25.110 ; Arthritis M19.90 and Fibromyalgia M79.7 [facility] [id number] [place] [address] 70001- 4395 09 Apr, 2017 Sinusitis chronic, frontal J32.1 ; Coronary artery disease involving [place]z [place] coronary artery of nez perce heart with unstable angina pectoris I25.110 ; Arthritis M19.90 and Fibromyalgia M79.7 [facility] [id number] [place] [address] 61007- 0975 Mar, [facility] [id number] [place] [address] 20036- 2835 Mar, Arthritis M19.90 [facility] [id number] [place] [address] 75264- 1703 Mar, Angina at rest I20.8 [facility] [id number] [place] [address] 93848- 6668 Mar, Arthritis M19.90 [facility] [id number] [place] [address] 62319- 2217 Mar, [facility] [id number] [place] [address] 25738- 9269 Feb, [facility] [id number] [place] [address] 45029- 0671 Feb, [facility] [id number] [place] [address] 16904- 8865 Feb, Arthritis M19.90 [facility] [address], [place] [address] -3746 Feb, Left foot pain M79.672 and Acute left ankle pain M25.572 [facility] [address], [place] [address]- 0851 09 Jan, 2017 [facility] [address], [place] [address] -6364 08 Jan, 2017 Arthritis M19.90 ; Spondylitis, cervical M46.92 ; Fibromyalgia M79.7 and Family history of hypothyroidism Z83.49 [facility] [id number] [place] [address] 26342- 9937 Sep, Dental caries K02.9 [facility] [place] [id number] [place] [address] 81247- 3661 Aug, Dental examination Z01.20 [facility] [place] [id number] [place] [address] 98167- 2438 Apr, Dental examination Z01.20 and Dental caries K02.9 [place] [id number] [place] [address] 64560- 2895 Apr, Dental caries K02.9 [facility] [place] [id number] [place] [address] 82936- 0067 Apr, Dental examination Z01.20 IMMUNIZATIONS No Known Immunizations SOCIAL HISTORY Never Assessed REASON FOR VISIT left shoulder frozen, both knees need injections-knee xrays done in June - CHRIS Garcia PLAN OF CARE Activity Details Follow Up 6 Weeks Reason: VITAL SIGNS Height 59.5 in 2017-12-18 Blood pressure systolic 112 mmHg 2017-12-18 Blood pressure diastolic 72 mmHg 2017-12-18 MEDICATIONS Unknown Medications RESULTS No Results PROCEDURES Procedure Date Ordered Result Body Site DRAIN/INJECT, JOINT/BURSA Dec 18, 2017 DEPO MEDROL 80 MG/ML Dec 18, 2017 INSTRUCTIONS MEDICATIONS ADMINISTERED No Known Medications [...]
--- OUTSIDE RECORDS SUMMARY | 2018-07-28 09:20 | XMS REPORT ---
Author Author BLAYNE VERDUGO Organization [facility] Address [address] [place] [address] Care Team Providers Care Medical Transport Specialist Name Role Phone BLAYNE VERDUGO Unavailable PROBLEMS Type Condition ICD9-CM Code EHH22-TF Code Onset Dates Condition Status SNOMED Code Problem Anxiety F41.9 Active 27957793 Problem Generalized anxiety disorder F41.1 Active 83270694 Problem Mild episode of recurrent major depressive disorder F33.0 Active 864363395 Problem Chronic pain syndrome G89.4 Active 264500435 Problem Fibromyalgia M79.7 Active 484411971 Problem Conductive hearing loss of left 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 H90.12 Active 949871446 Problem Spondylitis, cervical M46.92 Active 474374997 Problem Chronic insomnia F51.04 Active 228931530 Problem Constipation K59.00 Active 55823706 Problem Rotator cuff arthropathy of left shoulder M12.812 Active 34232494059867039 Problem 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 Active 3281333157300671 Problem Sinusitis chronic, frontal J32.1 Active 88111614 Problem 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 Active 0361668128794 Problem Arthritis M19.90 Active 3705493 Problem Angina at rest I20.8 Active 041638034 Problem Needs smoking cessation education F17.200 Active 853428608 Problem 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 Active 572102684 Problem Hypertension, unspecified type I10 Active 20273374 Problem Inflammatory arthritis M19.90 Active 3308967 Problem Claudication of both lower extremities I73.9 Active 24064058 Problem Basal cell carcinoma of nose C44.311 Active 329294505 ALLERGIES Substance Reaction Event Type Date Status Remeron nightmares Drug Allergy Jan, Active ENCOUNTERS Encounter Location Date Diagnosis [facility] [address], [place] [address] Mar, [facility] [address], [place] [address] Jan, [facility] [id number] [place] [address] 94075- 3146 Jan, [facility] [id number] [place] [address] 22416- 1458 Jan, [facility] [id number] [place] [address] 66847- 5042 Jan, [facility] [id number] [place] [address] 70362- 1999 Jan, [facility] [id number] [place] [address] 22558- 3820 Jan, Generalized anxiety disorder F41.1 and Mild episode of recurrent major depressive disorder F33.0 [facility] [id number] [place] [address] 06856- 9966 Dec, Chronic pain syndrome G89.4 [facility] [id number] [place] [address] 64348- 7377 Dec, [facility] [address] [place] [address] 84712- 5647 Dec, Arthritis M19.90 ; Fibromyalgia M79.7 ; Anxiety F41.9 ; Dizziness R42 ; Conductive hearing loss of left 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 H90.12 and Encounter for immunization Z23 [facility] [address], [place] [address] Dec, Rotator cuff arthropathy of left shoulder M12.812 [facility] [address] [place] [address] 36355- 3983 Dec, Chronic pain syndrome G89.4 [facility] [address], [place] [address] Dec, Rotator cuff arthropathy of left shoulder M12.812 [facility] [id number] [place] [address] 21386- 0650 02 Dec, 2017 Acute midline thoracic back pain M54.6 ; Chronic pain syndrome G89.4 and Dizziness R42 [facility] [id number] [place] [address] 63457- 7443 Dec, [place] [address] [address] Dec, [facility] [address] [address]- 7[address] 26 Nov, 2017 Rotator cuff arthropathy of left shoulder M12.812 [place] [address] [address]- [address] 19 Nov, 2017 Chronic insomnia F51.04 ; Non-healing skin lesion of nose L98.9 ; BPPV (benign paroxysmal positional vertigo), left H81.12 ; Constipation K59.00 and 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 [place] [id number] [place] [address] 34992- 9703 10 Nov, 2017 Arthritis M19.90 and Anxiety F41.9 [place] [id number] [place] [address] 80827- 0216 10 Nov, 2017 Generalized anxiety disorder F41.1 and Mild episode of recurrent major depressive disorder F33.0 [place] [id number] [place] [address] 34781- 7456 Nov, Spondylitis, cervical M46.92 [place] [id number] [place] [address] 46631- 5111 Oct, [place] [address] 68768- 9702 Oct, Basal cell carcinoma of nose C44.311 [place] [id number] [place] [address] 78633- 0191 Oct, Spondylitis, cervical M46.92 and Anxiety F41.9 [facility] [address] [place] [address] 71566- 4239 Oct, Generalized anxiety disorder F41.1 and Mild episode of recurrent major depressive disorder F33.0 [facility] [id number] [place] [address] 06018- 4661 Oct, Rotator cuff arthropathy of left shoulder M12.812 [facility] [id number] [place] [address] 58818- 3369 Oct, Spondylitis, cervical M46.92 [facility] [id number] [place] [address] 05961- 3876 Oct, [place] [id number] [place] [address] 64978- 8596 Sep, Basal cell carcinoma of nose C44.311 [place] [id number] [place] [address] 36832- 9356 Sep, Generalized anxiety disorder F41.1 and Mild episode of recurrent major depressive disorder F33.0 [place] [id number] [place] [address] 50372- 8025 Sep, Spondylitis, cervical M46.92 and Anxiety F41.9 [place] [id number] [place] [address] 09008- 0664 Sep, [facility] [id number] [place] [address] 28119- 6203 Aug, Rotator cuff arthropathy of left shoulder M12.812 [facility] [id number] [place] [address] 30224- 3942 Aug, Lesion of nose J34.89 [facility] [id number] [place] [address] 00676- 2071 Aug, Spondylitis, cervical M46.92 ; Fibromyalgia M79.7 and 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 [place] [id number] [place] [address] 35086- 8679 Aug, Fibromyalgia M79.7 [facility] [address], [place] [address] Aug, Fibromyalgia M79.7 [facility] [address] [id number] [address] Aug, [facility] [address], [place] [address]- [address]14 July, [facility] [address] [place] [address] 83512- 1487 July, [facility] [id number] [place] [address] 64152- 6599 July, Arthritis M19.90 [facility] [address], [place] [address] 299[address] July, Inflammatory arthritis M19.90 [facility] [address] [place] [address] 52058- 7773 Jun, Inflammatory arthritis M19.90 [facility] [address], [place] [address] Jun, Arthritis M19.90 [facility] [address], [place] [address]- [address] May, 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 ; Rheumatoid arthritis of left hip without organ or system involvement with positive rheumatoid factor M05.752 ; Chest pain, unspecified type R07.9 and Needs smoking cessation education F17.200 [facility] [address], [place] [address]- [address] May, [facility] [address], [place] [address]- 5907 May, Arthritis M19.90 [facility] [address], [place] [address]- 6[address] May, Chest pain, unspecified type R07.9 ; Dyspnea on exertion R06.09 ; Claudication of both lower extremities I73.9 ; Hypertension, unspecified type I10 and Tobacco use Z72.0 [facility] [id number] [place] [address] 43548- 2676 Apr, Arthritis M19.90 [facility] [id number] [place] [address] 14681- 3356 Apr, Arthritis M19.90 [facility] [id number] [place] [address] 67862- 8120 Apr, Sinusitis chronic, frontal J32.1 ; 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 ; Arthritis M19.90 and Fibromyalgia M79.7 [place] [id number] [place] [address] 10034- 3485 Apr, Sinusitis chronic, frontal J32.1 ; 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 ; Arthritis M19.90 and Fibromyalgia M79.7 [facility] [address] [place] [address] 21856- 0251 Mar, [place] [id number] [place] [address] 24576- 2368 Mar, Arthritis M19.90 [facility] [address] [place] [address] 59761- 4350 Mar, Angina at rest I20.8 [facility] [address] [place] [address] 74202- 1576 Mar, Arthritis M19.90 [facility] [id number] [place] [address] 97812- 1019 Mar, [facility] [address] [place] [address] 14812- 8084 Feb, [facility] [id number] [place] [address] 16672- 9686 Feb, [place] [address] [place] [address] 22401- 5229 Feb, Arthritis M19.90 [facility] [address] [place] [address] [id number] [place] [address] 45193 -2180 Feb, Left foot pain M79.672 and Acute left ankle pain M25.572 [place] [address] 29569- 7936 Jan, [facility] [id number] [place] [address] 46957 -9206 Jan, Arthritis M19.90 ; Spondylitis, cervical M46.92 ; Fibromyalgia M79.7 and Family history of hypothyroidism Z83.49 [place] [id number] [place] [address] 85766- 4875 Sep, Dental caries K02.9 [place] [address] 93090- 2846 Aug, Dental examination Z01.20 [place] [id number] [place] [address] 30247- 4692 Apr, Dental examination Z01.20 and Dental caries K02.9 [place] [id number] [place] [address] 47683- 3972 Apr, Dental caries K02.9 [place] [id number] [place] [address] 55670- 9511 08 Apr, 2015 Dental examination Z01.20 IMMUNIZATIONS No Known Immunizations SOCIAL HISTORY Never Assessed REASON FOR VISIT f/uHiram peoples ma PLAN OF CARE Activity Details Follow Up 2 Months Reason: Follow-up VITAL SIGNS Height 59.5 in 2018-01-19 Weight 107.3 lbs 2018-01-19 Heart Rate 97 bpm 2018-01-19 Respiratory Rate 20 2018-01-19 BMI 21.31 kg/m2 2018-01-19 Blood pressure systolic 146 mmHg 2018-01-19 Blood pressure diastolic 76 mmHg 2018-01-19 MEDICATIONS Medication Instructions Dosage Frequency Start Date End Date Duration Status Trelegy Ellipta by inhalation route Once a day 1 puff 24h Active DuoNeb by inhalation route 4 times a day 6h Active Nebulizer Active Oxygen 2 L by inhalation route at bedtime Active Amitriptyline HCl 25 MG Orally Once a day at bedtime 1 tablet Oct, Active Zyrtec Allergy 10 MG Orally Once a day 1 tablet 24h 30 day(s) Not- Taking Aspirin Childrens 81 MG Orally Once a day 1 tablet 24h Active MS Contin 15 mg Orally Once a day 1 tablet 24h Dec, Jan, 14 days Active Diclofenac Sodium 75 MG Orally Twice a day 1 tablet with food or milk 12h Dec, Apr, 30 day(s) Active Cymbalta 60 mg Orally Once a day 2 capsule 24h Active Atorvastatin Calcium 20 MG Orally Once a day 1 tablet 24h Active Oxycodone HCl 10 mg Orally 3 times a day 1 tablet 8h Dec, 14 days Active Melatonin 3 MG Orally at bedtime 2 Oct, Active RESULTS No Results PROCEDURES No Known [...]
--- OUTSIDE RECORDS SUMMARY | 2018-07-28 09:21 | XMS REPORT ---
Author Author PARISH HOLMAN Organization [facility] [place] Address [address] [place] [address] Care Team Providers Care Senior Data Warehouse Architect Name Role Phone PARISH HOLMAN Unavailable PROBLEMS Type Condition ICD9-CM Code VQI86-UG Code Onset Dates Condition Status SNOMED Code Problem Anxiety F41.9 Active 35828329 Problem Generalized anxiety disorder F41.1 Active 36223668 Problem Mild episode of recurrent major depressive disorder F33.0 Active 012404924 Problem Chronic pain syndrome G89.4 Active 350746805 Problem Fibromyalgia M79.7 Active 844493023 Problem Conductive hearing loss of left 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 H90.12 Active 519097055 Problem Spondylitis, cervical M46.92 Active 482634367 Problem Chronic insomnia F51.04 Active 697353302 Problem Constipation K59.00 Active 89730747 Problem Rotator cuff arthropathy of left shoulder M12.812 Active [id number] Problem 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 Active 1865828571103543 Problem Sinusitis chronic, frontal J32.1 Active 83592873 Problem Coronary artery disease involving [place] coronary artery of [place] heart with unstable angina pectoris I25.110 Active 5310169453012 Problem Arthritis M19.90 Active 5053689 Problem Angina at rest I20.8 Active 514437020 Problem Needs smoking cessation education F17.200 Active 162665092 Problem 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 Active 044324165 Problem Hypertension, unspecified type I10 Active 16082317 Problem Inflammatory arthritis M19.90 Active 6324183 Problem Claudication of both lower extremities I73.9 Active 76766795 Problem Basal cell carcinoma of nose C44.311 Active 585904802 ALLERGIES No Information ENCOUNTERS Encounter Location Date Diagnosis [facility] [place] [address] [facility] [id number] [address] Jan, [facility] [place] [id number] [place] [address]53- [address]384 Jan, [facility] [place] [id number] [place] [address] 55569- 9498 Jan, [facility] [place] [id number] [place] [address] 93361- 5824 Jan, [facility] [place] [address] [address] Dec, [facility] [place] [address] [address] Dec, [facility] [place] [address] [address] Dec, Arthritis M19.90 ; Fibromyalgia M79.7 ; Anxiety F41.9 ; Dizziness R42 ; Conductive hearing loss of left 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 H90.12 and Encounter for immunization Z23 [facility] [place] [id number] [place] [address] 93307- 0870 Dec, Rotator cuff arthropathy of left shoulder M12.812 [place] [address] [address]- [address] Dec, Chronic pain syndrome G89.4 [facility] [place] [id number] [place] [address] 33391- 0079 Dec, Rotator cuff arthropathy of left shoulder M12.812 [facility] [place] [id number] [place] [address] 59148- 5862 Dec, Acute midline thoracic back pain M54.6 ; Chronic pain syndrome G89.4 and Dizziness R42 [facility] [place] [address] [address]- [address] Dec, [facility] [place] [id number] [place] [address] 78964- 3706 Dec, [facility] [place] [address] [address]- [address] 26 Nov, 2017 Rotator cuff arthropathy of left shoulder M12.812 [place] [id number] [place] [address] 68323- 9354 19 Nov, 2017 Chronic insomnia F51.04 ; Non-healing skin lesion of nose L98.9 ; BPPV (benign paroxysmal positional vertigo), left H81.12 ; Constipation K59.00 and 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 [place] [address] [address]- [address] Nov, Arthritis M19.90 and Anxiety F41.9 [place] [address] 14874- 8859 Nov, Generalized anxiety disorder F41.1 and Mild episode of recurrent major depressive disorder F33.0 [place] [address] 24414- [address]446 Nov, Spondylitis, cervical M46.92 [place] [id number] [place] [address] 23260- 4257 Oct, [place] [address] 42056- [address]37 Oct, Basal cell carcinoma of nose C44.311 [place] [id number] [place] [address] 05495- 3832 Oct, Spondylitis, cervical M46.92 and Anxiety F41.9 [place] [id number] [place] [address] 16949- 3190 Oct, Generalized anxiety disorder F41.1 and Mild episode of recurrent major depressive disorder F33.0 [place] [address] 31550- 7587 Oct, [place] [id number] [place] [address] 01803- 1160 Oct, Spondylitis, cervical M46.92 [place] [address] 32112- 9737 Oct, [facility] [place] [id number] [place] [address] 54603- 1182 Sep, Basal cell carcinoma of nose C44.311 [facility] [place] [id number] [place] [address] 78340- 6747 Sep, Generalized anxiety disorder F41.1 and Mild episode of recurrent major depressive disorder F33.0 [facility] [place] [id number] [place] [address] 02960- 3042 Sep, Spondylitis, cervical M46.92 and Anxiety F41.9 [place] [address] 75829- 8931 Sep, [place] [id number] [place] [address] 18861- 9252 Aug, Rotator cuff arthropathy of left shoulder M12.812 [place] [address] 37971- 2732 Aug, Lesion of nose J34.89 [place] [address] [address]28- 2824 Aug, Spondylitis, cervical M46.92 ; Fibromyalgia M79.7 and 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 [place] [id number] [place] [address] 14471- 9071 Aug, Fibromyalgia M79.7 [facility] [place] [address] 57067- 1297 Aug, Fibromyalgia M79.7 [facility] [place] [id number] [place] [address] 37439- 2404 Aug, [facility] [place] [address] 41645- 4503 July, [facility] [place] [id number] [place] [address] 68086- 0964 July, [facility] [place] [address] [address] July, Arthritis M19.90 [facility] [place] [id number] [place] [address] 64915- 2573 July, Inflammatory arthritis M19.90 [facility] [place] [id number] [place] [address] 71801- 8237 Jun, Inflammatory arthritis M19.90 [facility] [place] [id number] [place] [address] 46267- 0463 Jun, Arthritis M19.90 [facility] [place] [id number] [place] [address] 53555- 5394 May, 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9 ; Dyspnea on exertion R06.09 ; Claudication of both lower extremities I73.9 ; Hypertension, unspecified type I10 and Tobacco use Z72.0 [place] [address] [address] Apr, Arthritis M19.90 [facility] [place] [id number] [place] [address] 13231- 6876 Apr, Arthritis M19.90 [facility] [place] [address] [address]- [address] Apr, Sinusitis chronic, frontal J32.1 ; Coronary artery disease involving [place] coronary artery of [place] heart with unstable angina pectoris I25.110 ; Arthritis M19.90 and Fibromyalgia M79.7 [facility] [place] [id number] [place] [address] 69252- 0372 Apr, Sinusitis chronic, frontal J32.1 ; Coronary artery disease involving [place] coronary artery of [place] heart with unstable angina pectoris I25.110 ; Arthritis M19.90 and Fibromyalgia M79.7 [facility] [place] [id number] [place] [address] 47362- 1626 Mar, [facility] [place] [id number] [place] [address] 76713- 6700 Mar, Arthritis M19.90 [facility] [place] [id number] [place] [address] 13794- 0696 Mar, Angina at rest I20.8 [facility] [place] [address] 91567- 8846 Mar, Arthritis M19.90 [facility] [place] [id number] [place] [address] 59842- 9988 Mar, [facility] [place] [id number] [place] [address] 86161- 9707 Feb, [facility] [place] [id number] [place] [address] 27082- 0665 Feb, [facility] [place] [id number] [place] [address] 65429- 2545 Feb, Arthritis M19.90 [facility] [id number] [place] [address] 79988 -0779 Feb, Left foot pain M79.672 and Acute left ankle pain M25.572 [facility] [place] [id number] [place] [address] 91926- 0587 Jan, [facility] [id number] [place] [address] 81815 -2540 Jan, Arthritis M19.90 ; Spondylitis, cervical M46.92 ; Fibromyalgia M79.7 and Family history of hypothyroidism Z83.49 [place] [id number] [place] [address] 43794- 3582 Sep, Dental caries K02.9 [place] [id number] [place] [address] 69683- 1593 Aug, Dental examination Z01.20 [place] [address] 23587- 8741 Apr, Dental examination Z01.20 and Dental caries K02.9 [place] [address] 89698- 5078 Apr, Dental caries K02.9 [place] [id number] [place] [address] 19419- 4567 08 Apr, 2015 Dental examination Z01.20 IMMUNIZATIONS No Known Immunizations SOCIAL HISTORY Never Assessed REASON FOR VISIT RN phone call PLAN OF CARE VITAL SIGNS MEDICATIONS [...]
--- OUTSIDE RECORDS SUMMARY | 2018-07-28 09:21 | XMS REPORT ---
Author Author PARISH HOLMAN Organization [facility] Address [address] [place] [address] Care Team Providers Care Mechanical Tech Name Role Phone PARISH HOLMAN Unavailable PROBLEMS Type Condition ICD9-CM Code OTO13-ML Code Onset Dates Condition Status SNOMED Code Problem Anxiety F41.9 Active 23341578 Problem Generalized anxiety disorder F41.1 Active 80394952 Problem Mild episode of recurrent major depressive disorder F33.0 Active 208941347 Problem Chronic pain syndrome G89.4 Active 936234820 Problem Fibromyalgia M79.7 Active 665174270 Problem Conductive hearing loss of left 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 H90.12 Active 095324869 Problem Spondylitis, cervical M46.92 Active 184255206 Problem Chronic insomnia F51.04 Active 466039433 Problem Constipation K59.00 Active 51935608 Problem Rotator cuff arthropathy of left shoulder M12.812 Active 73557579691087843 Problem 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 Active 1973263325845768 Problem Sinusitis chronic, frontal J32.1 Active 50598808 Problem 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 Active 3568827200642 Problem Arthritis M19.90 Active 3758145 Problem Angina at rest I20.8 Active 853523745 Problem Needs smoking cessation education F17.200 Active 468129218 Problem 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 Active 167719241 Problem Hypertension, unspecified type I10 Active 49206376 Problem Inflammatory arthritis M19.90 Active 7696372 Problem Claudication of both lower extremities I73.9 Active 38236635 Problem Basal cell carcinoma of nose C44.311 Active 345158333 ALLERGIES No Information ENCOUNTERS Encounter Location Date Diagnosis [facility] [address] [facility] [id number] [address] Jan, [facility] [address], [place] [address] Jan, [facility] [id number] [place] [address] 35248- 2170 Jan, [facility] [id number] [place] [address] 02359- 5298 Jan, [facility] [address] 23176- 2560 Dec, Chronic pain syndrome G89.4 [facility] [id number] [place] [address] 78048- 1226 Dec, [facility] [id number] [place] [address] 20412- 3136 Dec, Arthritis M19.90 ; Fibromyalgia M79.7 ; Anxiety F41.9 ; Dizziness R42 ; Conductive hearing loss of left 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 H90.12 and Encounter for immunization Z23 [facility] [id number] [place] [address] 01446- 4547 Dec, Rotator cuff arthropathy of left shoulder M12.812 [facility] [id number] [place] [address] 00846- 2728 Dec, Chronic pain syndrome G89.4 [facility] [id number] [place] [address] 97590- 9267 Dec, Rotator cuff arthropathy of left shoulder M12.812 [facility] [id number] [place] [address] 02682- 4876 Dec, Acute midline thoracic back pain M54.6 ; Chronic pain syndrome G89.4 and Dizziness R42 [facility] [id number] [place] [address] 33707- 5747 Dec, [facility] [id number] [place] [address] 31893- 4910 Dec, [facility] [id number] [place] [address] 23700- 6580 26 Nov, 2017 Rotator cuff arthropathy of left shoulder M12.812 [place] [id number] [place] [address] 05908- 0752 19 Nov, 2017 Chronic insomnia F51.04 ; Non-healing skin lesion of nose L98.9 ; BPPV (benign paroxysmal positional vertigo), left H81.12 ; Constipation K59.00 and 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 [place] [address] 29258- 8608 10 Nov, 2017 Arthritis M19.90 and Anxiety F41.9 [place] [address] 88565- 5299 Nov, Generalized anxiety disorder F41.1 and Mild episode of recurrent major depressive disorder F33.0 [place] [address] 33713- 9276 Nov, Spondylitis, cervical M46.92 [place] [id number] [place] [address] 76798- 6458 Oct, [place] [address] 81161- 5859 Oct, Basal cell carcinoma of nose C44.311 [place] [address] 94469- 9072 Oct, Spondylitis, cervical M46.92 and Anxiety F41.9 [place] [id number] [place] [address] 71865- 6231 Oct, Generalized anxiety disorder F41.1 and Mild episode of recurrent major depressive disorder F33.0 [place] [id number] [place] [address] 09033- 2871 Oct, Rotator cuff arthropathy of left shoulder M12.812 [place] [address] [id number] [place] [address] 67653- 7335 Oct, Spondylitis, cervical M46.92 [facility] [id number] [place] [address] 31503- 4343 Oct, [facility] [address] 85006- 4373 Sep, Basal cell carcinoma of nose C44.311 [facility] [id number] [place] [address] 39429- 4112 Sep, Generalized anxiety disorder F41.1 and Mild episode of recurrent major depressive disorder F33.0 [facility] [id number] [place] [address] 44383- 1450 Sep, Spondylitis, cervical M46.92 and Anxiety F41.9 [place] [id number] [place] [address] 75143- 4947 Sep, [place] [id number] [place] [address] 84199- 3621 Aug, Rotator cuff arthropathy of left shoulder M12.812 [place] [id number] [place] [address] 96519- 2458 Aug, Lesion of nose J34.89 [place] [id number] [place] [address] 61671- 6796 Aug, Spondylitis, cervical M46.92 ; Fibromyalgia M79.7 and 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 [facility] [id number] [place] [address] 97510- 1532 Aug, Fibromyalgia M79.7 [facility] [id number] [place] [address] 37392- 4395 Aug, Fibromyalgia M79.7 [facility] [id number] [place] [address] 03368- 6891 Aug, [facility] [id number] [place] [address] 94622- 6433 July, [facility] [id number] [place] [address] 48398- 6207 July, [facility] [address], [place] [address] 0065 July, Arthritis M19.90 [facility] [address], [place] [address] 3718 July, Inflammatory arthritis M19.90 [facility] [address] [place] [address] 40511- 5082 Jun, Inflammatory arthritis M19.90 [facility] [address] [place] [address] 81090- 8360 Jun, Arthritis M19.90 [facility] [address] [place] [address] 97638- 4254 May, 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 ; Rheumatoid arthritis of left hip without organ or system involvement with positive rheumatoid factor M05.752 ; Chest pain, unspecified type R07.9 and Needs smoking cessation education F17.200 [facility] [address], [place] [address] 5317 May, [facility] [address] [place] [address] 49387- 6862 May, Arthritis M19.90 [facility] [address], [place] [address]- 8890 May, Chest pain, unspecified type R07.9 ; Dyspnea on exertion R06.09 ; Claudication of both lower extremities I73.9 ; Hypertension, unspecified type I10 and Tobacco use Z72.0 [facility] [address], [place] [address]- 4426 Apr, Arthritis M19.90 [facility] [address], [place] [address]- 6936 Apr, Arthritis M19.90 [facility] [address] [place] [address] 00798- 1531 Apr, Sinusitis chronic, frontal J32.1 ; 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 ; Arthritis M19.90 and Fibromyalgia M79.7 [facility] [id number] [place] [address] 24518- 6504 09 Apr, 2017 Sinusitis chronic, frontal J32.1 ; 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 ; Arthritis M19.90 and Fibromyalgia M79.7 [facility] [id number] [place] [address] 20196- 3293 Mar, [facility] [id number] [place] [address] 13475- 1862 Mar, Arthritis M19.90 [facility] [id number] [place] [address] 92669- 3958 Mar, Angina at rest I20.8 [facility] [id number] [place] [address] 20773- 6490 Mar, Arthritis M19.90 [facility] [id number] [place] [address] 50485- 6786 Mar, [facility] [id number] [place] [address] 58809- 9702 Feb, [facility] [id number] [place] [address] 31603- 3963 Feb, [facility] [id number] [place] [address] 82735- 9911 Feb, Arthritis M19.90 [facility] [id number] [place] [address] 82905 -3872 Feb, Left foot pain M79.672 and Acute left ankle pain M25.572 [facility] [id number] [place] [address] 31287- 0537 Jan, [facility] [address] [place] [address] 08 Jan, 2017 Arthritis M19.90 ; Spondylitis, cervical M46.92 ; Fibromyalgia M79.7 and Family history of hypothyroidism Z83.49 [place] [address] [place] [address] 72229- 5936 Sep, Dental caries K02.9 [place] [id number] [place] [address] 84826- 2606 Aug, Dental examination Z01.20 [place] [address] 92733- 6646 23 Apr, 2015 Dental examination Z01.20 and Dental caries K02.9 [place] [id number] [place] [address] 47121- 0026 16 Apr, 2015 Dental caries K02.9 [place] [id number] [place] [address] 60351- 6190 08 Apr, 2015 Dental examination Z01.20 IMMUNIZATIONS No Known Immunizations SOCIAL HISTORY Never Assessed REASON FOR VISIT Controlled Med Refill/Taper Schedule PLAN OF CARE VITAL SIGNS MEDICATIONS Medication Instructions Dosage Frequency Start Date End Date Duration Status MS Contin 15 mg Orally Once a day 1 tablet 24h Dec, Jan, 14 days Active Oxycodone HCl 10 mg Orally 3 times a day 1 tablet 8h Dec, 14 days Active RESULTS No Results PROCEDURES [...]
--- OUTSIDE RECORDS SUMMARY | 2018-07-28 09:21 | XMS REPORT ---
Author Author QUITA POWELL Organization [facility] Address [address] [place] [address] Care Team Providers Care Impregnator Helper Name Role Phone QUITA POWELL Unavailable PROBLEMS Type Condition ICD9-CM Code QCW11-PY Code Onset Dates Condition Status SNOMED Code Problem Anxiety F41.9 Active 79043090 Problem Generalized anxiety disorder F41.1 Active 44877257 Problem Mild episode of recurrent major depressive disorder F33.0 Active 062667852 Problem Chronic pain syndrome G89.4 Active 017064226 Problem Fibromyalgia M79.7 Active 828414550 Problem Conductive hearing loss of left 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 H90.12 Active 506413794 Problem Spondylitis, cervical M46.92 Active 698633233 Problem Chronic insomnia F51.04 Active 894565490 Problem Constipation K59.00 Active 74748397 Problem Rotator cuff arthropathy of left shoulder M12.812 Active 64057155901653567 Problem 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 Active 9690117547947308 Problem Sinusitis chronic, frontal J32.1 Active 56092437 Problem Coronary artery disease involving [place] coronary artery of [place] heart with unstable angina pectoris I25.110 Active 0040738714961 Problem Arthritis M19.90 Active 1316214 Problem Angina at rest I20.8 Active 183427541 Problem Needs smoking cessation education F17.200 Active 714752731 Problem 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 Active 558204749 Problem Hypertension, unspecified type I10 Active 48471896 Problem Inflammatory arthritis M19.90 Active 8886622 Problem Claudication of both lower extremities I73.9 Active 23061427 Problem Basal cell carcinoma of nose C44.311 Active 294459447 ALLERGIES No Information ENCOUNTERS Encounter Location Date Diagnosis [facility] [address] [facility] [id number] [address] Jan, [facility] [address] [address]- 8674 Jan, [facility] [id number] [place] [address] 30306- 3680 Jan, [facility] [id number] [place] [address] 78508- 6847 Jan, [facility] [address] 18934- 9036 Dec, Chronic pain syndrome G89.4 [facility] [id number] [place] [address] 60950- 9205 Dec, [facility] [id number] [place] [address] 86503- 0185 Dec, Arthritis M19.90 ; Fibromyalgia M79.7 ; Anxiety F41.9 ; Dizziness R42 ; Conductive hearing loss of left 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 H90.12 and Encounter for immunization Z23 [facility] [id number] [place] [address] 30170- 1344 Dec, Rotator cuff arthropathy of left shoulder M12.812 [facility] [id number] [place] [address] 30112- 5730 Dec, Chronic pain syndrome G89.4 [facility] [id number] [place] [address] 67822- 4683 Dec, Rotator cuff arthropathy of left shoulder M12.812 [facility] [id number] [place] [address] 08005- 7034 Dec, Acute midline thoracic back pain M54.6 ; Chronic pain syndrome G89.4 and Dizziness R42 [facility] [id number] [place] [address] 70854- 4640 Dec, [facility] [id number] [place] [address] 37083- 6242 Dec, [facility] [id number] [place] [address] 75342- 4958 26 Nov, 2017 Rotator cuff arthropathy of left shoulder M12.812 [place] [address] [place] [id number] [place] [address] 02283- 4399 19 Nov, 2017 Chronic insomnia F51.04 ; Non-healing skin lesion of nose L98.9 ; BPPV (benign paroxysmal positional vertigo), left H81.12 ; Constipation K59.00 and 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 [place] [address] 01597- 0138 10 Nov, 2017 Arthritis M19.90 and Anxiety F41.9 [place] [address] 96999- 1751 Nov, Generalized anxiety disorder F41.1 and Mild episode of recurrent major depressive disorder F33.0 [place] [address] 36866- 2063 Nov, Spondylitis, cervical M46.92 [place] [address] [id number] [place] [address] 24675- 9935 Oct, [place] [address] 74120- 5798 Oct, Basal cell carcinoma of nose C44.311 [place] [address] 07838- 6740 Oct, Spondylitis, cervical M46.92 and Anxiety F41.9 [place] [id number] [place] [address] 09410- 7433 Oct, Generalized anxiety disorder F41.1 and Mild episode of recurrent major depressive disorder F33.0 [place] [id number] [place] [address] 47121- 9627 Oct, Rotator cuff arthropathy of left shoulder M12.812 [place] [address] [place] [id number] [place] [address] 57745- 4365 Oct, Spondylitis, cervical M46.92 [facility] [id number] [place] [address] 81691- 8757 Oct, [facility] [address] 02760- 7680 Sep, Basal cell carcinoma of nose C44.311 [facility] [id number] [place] [address] 97207- 2654 Sep, Generalized anxiety disorder F41.1 and Mild episode of recurrent major depressive disorder F33.0 [facility] [id number] [place] [address] 46597- 4344 Sep, Spondylitis, cervical M46.92 and Anxiety F41.9 [place] [id number] [place] [address] 05486- 9816 Sep, [place] [id number] [place] [address] 85674- 9071 Aug, Rotator cuff arthropathy of left shoulder M12.812 [place] [id number] [place] [address] 16518- 5747 Aug, Lesion of nose J34.89 [place] [id number] [place] [address] 60908- 5321 Aug, Spondylitis, cervical M46.92 ; Fibromyalgia M79.7 and 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 [facility] [id number] [place] [address] 48955- 3738 Aug, Fibromyalgia M79.7 [facility] [id number] [place] [address] 53260- 6289 Aug, Fibromyalgia M79.7 [facility] [id number] [place] [address] 67450- 6833 Aug, [facility] [id number] [place] [address] 42674- 1015 July, [facility] [id number] [place] [address] 04746- 9987 July, [facility] [address] [address]- 8925 July, Arthritis M19.90 [facility] [address] [address]- 0764 July, Inflammatory arthritis M19.90 [facility] [address] [place] [address] 79515- 1556 Jun, Inflammatory arthritis M19.90 [facility] [address] [place] [address] 83051- 6542 Jun, Arthritis M19.90 [facility] [address] [place] [address] 58002- 1252 May, 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 ; Rheumatoid arthritis of left hip without organ or system involvement with positive rheumatoid factor M05.752 ; Chest pain, unspecified type R07.9 and Needs smoking cessation education F17.200 [facility] [address] [address]- 4191 May, [facility] [address] [place] [address] 12418- 1571 May, Arthritis M19.90 [facility] [address] [address]- 1182 May, Chest pain, unspecified type R07.9 ; Dyspnea on exertion R06.09 ; Claudication of both lower extremities I73.9 ; Hypertension, unspecified type I10 and Tobacco use Z72.0 [facility] [address] [address]- 6190 Apr, Arthritis M19.90 [facility] [address] [address]- 3333 Apr, Arthritis M19.90 [facility] [address] [place] [address] 56233- 4793 Apr, Sinusitis chronic, frontal J32.1 ; Coronary artery disease involving [place] coronary artery of [place] heart with unstable angina pectoris I25.110 ; Arthritis M19.90 and Fibromyalgia M79.7 [facility] [id number] [place] [address] 52058- 2250 09 Apr, 2017 Sinusitis chronic, frontal J32.1 ; Coronary artery disease involving [place] coronary artery of [place] heart with unstable angina pectoris I25.110 ; Arthritis M19.90 and Fibromyalgia M79.7 [facility] [id number] [place] [address] 89171- 3472 Mar, [facility] [id number] [place] [address] 13143- 4990 Mar, Arthritis M19.90 [facility] [id number] [place] [address] 85103- 9459 Mar, Angina at rest I20.8 [facility] [id number] [place] [address] 86469- 8301 Mar, Arthritis M19.90 [facility] [id number] [place] [address] 99418- 5270 Mar, [facility] [id number] [place] [address] 17526- 3304 Feb, [facility] [id number] [place] [address] 20054- 7082 Feb, [facility] [id number] [place] [address] 35807- 4543 Feb, Ar[address] M19.[address] [facility] [id number] [place] [address] 17374 -1327 Feb, Left foot pain M79.672 and Acute left ankle pain M25.572 [facility] [id number] [place] [address] 88680- 6178 Jan, [facility] [address] [place] [address] -[address]383 Jan, Arthritis M19.90 ; Spondylitis, cervical M46.92 ; Fibromyalgia M79.7 and Family history of hypothyroidism Z83.49 [place] [address] [place] [address] 40187- 1352 Sep, Dental caries K02.9 [place] [id number] [place] [address] 81400- 6608 Aug, Dental examination Z01.20 [place] [address] 90974- 2737 Apr, Dental examination Z01.20 and Dental caries K02.9 [place] [id number] [place] [address] 53423- 1284 Apr, Dental caries K02.9 [place] [id number] [place] [address] 71985- 4930 08 Apr, 2015 Dental examination Z01.20 IMMUNIZATIONS No Known Immunizations SOCIAL HISTORY Never Assessed REASON FOR VISIT PT follow-up PLAN OF CARE Activity Details Follow Up 1 Week Reason:F/U PT VITAL SIGNS MEDICATIONS Unknown Medications RESULTS No Results PROCEDURES Procedure Date Ordered Result Body Site THERAPEUTIC EXERCISES Oct 21, 2017 INSTRUCTIONS MEDICATIONS ADMINISTERED No Known Medications [...]
--- OUTSIDE RECORDS SUMMARY | 2018-07-28 09:21 | XMS REPORT ---
Author Author PARISH HOLMAN Organization [facility] Address [address] [place] [address] Care Team Providers Care Workers' Compensation Hearings Officer Name Role Phone PARISH HOLMAN Unavailable PROBLEMS Type Condition ICD9-CM Code [id number] Code Onset Dates Condition Status SNOMED Code Problem Anxiety F41.9 Active 17842077 Problem Generalized anxiety disorder F41.1 Active 51921560 Problem Mild episode of recurrent major depressive disorder F33.0 Active 636939929 Problem Chronic pain syndrome G89.4 Active 403045114 Problem Fibromyalgia M79.7 Active 502195887 Problem Conductive hearing loss of left 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 H90.12 Active 844452343 Problem Spondylitis, cervical M46.92 Active 308312665 Problem Chronic insomnia F51.04 Active 129776071 Problem Constipation K59.00 Active 77675300 Problem Rotator cuff arthropathy of left shoulder M12.812 Active 15126012737891964 Problem 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 Active 4258109572364283 Problem Sinusitis chronic, frontal J32.1 Active 04338441 Problem Coronary artery disease involving [place] coronary artery of [place] heart with unstable angina pectoris I25.110 Active 6879367793263 Problem Arthritis M19.90 Active 4618807 Problem Angina at rest I20.8 Active 197194900 Problem Needs smoking cessation education F17.200 Active 975289107 Problem 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 Active 787779943 Problem Hypertension, unspecified type I10 Active 01633186 Problem Inflammatory arthritis M19.90 Active 2902896 Problem Claudication of both lower extremities I73.9 Active 84044558 Problem Basal cell carcinoma of nose C44.311 Active 231633213 ALLERGIES No Information ENCOUNTERS Encounter Location Date Diagnosis [facility] [address] [facility] [id number] [address] Mar, [facility] [id number] [place] [address] 01442- 9678 Jan, [facility] [id number] [place] [address] 73344- 7980 Jan, [facility] [id number] [place] [address] 73317- 5467 Jan, [facility] [address] 23875- 4479 Jan, Generalized anxiety disorder F41.1 and Mild episode of recurrent major depressive disorder F33.0 [facility] [id number] [place] [address] 08558- 7135 Dec, Chronic pain syndrome G89.4 [place] [id number] [place] [address] 80531- 5846 Dec, [facility] [id number] [place] [address] 45905- 1528 Dec, Arthritis M19.90 ; Fibromyalgia M79.7 ; Anxiety F41.9 ; Dizziness R42 ; Conductive hearing loss of left 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 H90.12 and Encounter for immunization Z23 [facility] [facility] [id number] [place] [address] 39493- 0099 Dec, Rotator cuff arthropathy of left shoulder M12.812 [place] [id number] [place] [address] 29133- 3545 Dec, Chronic pain syndrome G89.4 [facility] [id number] [place] [address] 61170- 0600 Dec, Rotator cuff arthropathy of left shoulder M12.812 [facility] [id number] [place] [address] 05079- 5908 Dec, Acute midline thoracic back pain M54.6 ; Chronic pain syndrome G89.4 and Dizziness R42 [facility] [id number] [place] [address] 17290- 6033 Dec, [facility] [id number] [place] [address] 14757- 8704 Dec, [facility] [address] 00767- 0669 Nov, Rotator cuff arthropathy of left shoulder M12.812 [facility] [id number] [place] [address] 67654- 0081 19 Nov, 2017 Chronic insomnia F51.04 ; Non-healing skin lesion of nose L98.9 ; BPPV (benign paroxysmal positional vertigo), left H81.12 ; Constipation K59.00 and 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 [facility] [address] 03874- 4387 Nov, Arthritis M19.90 and Anxiety F41.9 [facility] [address] 87859- 1335 Nov, Generalized anxiety disorder F41.1 and Mild episode of recurrent major depressive disorder F33.0 [facility] [id number] [place] [address] 97807- 7279 Nov, Spondylitis, cervical M46.92 [facility] [id number] [place] [address] 63686- 8171 Oct, [facility] [id number] [place] [address] 88641- 1822 Oct, Basal cell carcinoma of nose C44.311 [facility] [id number] [place] [address] 45375- 2287 Oct, Spondylitis, cervical M46.92 and Anxiety F41.9 [facility] [id number] [place] [address] 33789- 7704 Oct, Generalized anxiety disorder F41.1 and Mild episode of recurrent major depressive disorder F33.0 [facility] [id number] [place] [address] 80105- 0678 Oct, Rotator cuff arthropathy of left shoulder M12.812 [facility] [id number] [place] [address] 58578- 3037 Oct, Spondylitis, cervical M46.92 [facility] [id number] [place] [address] 83642- 2129 Oct, [facility] [id number] [place] [address] 05640- 8482 Sep, Basal cell carcinoma of nose C44.311 [facility] [id number] [place] [address] 57424- 1325 Sep, Generalized anxiety disorder F41.1 and Mild episode of recurrent major depressive disorder F33.0 [facility] [id number] [place] [address] 91394- 1647 Sep, Spondylitis, cervical M46.92 and Anxiety F41.9 [facility] [id number] [place] [address] 92445- 0397 Sep, [facility] [id number] [place] [address] 07556- 0381 Aug, Rotator cuff arthropathy of left shoulder M12.812 [facility] [id number] [place] [address] 78411- 1025 Aug, Lesion of nose J34.89 [facility] [id number] [place] [address] 40891- 2984 Aug, Spondylitis, cervical M46.92 ; Fibromyalgia M79.7 and 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 [facility] [id number] [place] [address] 51238- 7800 Aug, Fibromyalgia M79.7 [facility] [id number] [place] [address] 57932- 4637 Aug, Fibromyalgia M79.7 [facility] [id number] [place] [address] 95871- 5637 Aug, [facility] [address] [address] 7729 July, [facility] [address] [address] 1430 July, [facility] [address] [address] 2312 July, Arthritis M19.90 [facility] [id number] [place] [address] 19340- 2274 July, Inflammatory arthritis M19.90 [facility] [address] [address]- 9336 Jun, Inflammatory arthritis M19.90 [facility] [address] [address]- 1561 Jun, Arthritis M19.90 [facility] [address] [address]- 2201 May, 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 ; Rheumatoid arthritis of left hip without organ or system involvement with positive rheumatoid factor M05.752 ; Chest pain, unspecified type R07.9 and Needs smoking cessation education F17.200 [facility] [address], [place] [address]- 7476 May, [facility] [address], [place] [address]- 1475 May, Arthritis M19.90 [facility] [address] [id number] [address]- 5552 May, Chest pain, unspecified type R07.9 ; Dyspnea on exertion R06.09 ; Claudication of both lower extremities I73.9 ; Hypertension, unspecified type I10 and Tobacco use Z72.0 [facility] [address], [place] [address]- 2321 Apr, Arthritis M19.90 [facility] [id number] [place] [address] 03652- 0008 16 Apr, 2017 Arthritis M19.90 [facility] [id number] [place] [address] 84625- 6264 12 Apr, 2017 Sinusitis chronic, frontal J32.1 ; Coronary artery disease involving [place] coronary artery of [place] heart with unstable angina pectoris I25.110 ; Arthritis M19.90 and Fibromyalgia M79.7 [facility] [id number] [place] [address] 55431- 6316 09 Apr, 2017 Sinusitis chronic, frontal J32.1 ; Coronary artery disease involving [place] coronary artery of [place] heart with unstable angina pectoris I25.110 ; Arthritis M19.90 and Fibromyalgia M79.7 [facility] [id number] [place] [address] 39093- 6380 Mar, [facility] [id number] [place] [address] 17382- 1085 Mar, Arthritis M19.90 [facility] [id number] [place] [address] 86177- 4412 Mar, Angina at rest I20.8 [facility] [id number] [place] [address] 71979- 5976 Mar, Arthritis M19.90 [facility] [id number] [place] [address] 88005- 1141 Mar, [facility] [id number] [place] [address] 73189- 8988 Feb, [facility] [id number] [place] [address] 03722- 7871 Feb, [facility] [id number] [place] [address] 03018- 8196 Feb, Arthritis M19.90 [facility] [address] [place] [address] 11102 -2664 Feb, Left foot pain M79.672 and Acute left ankle pain M25.572 [facility] [address], [place] [address]- 1197 Jan, [facility] [id number] [place] [address] 37810 -3381 Jan, Arthritis M19.90 ; Spondylitis, cervical M46.92 ; Fibromyalgia M79.7 and Family history of hypothyroidism Z83.49 [facility] [id number] [place] [address] 74693- 3794 Sep, Dental caries K02.9 [facility] [address] 33923- 7018 Aug, Dental examination Z01.20 [facility] [place] [id number] [place] [address] 67887- 7031 Apr, Dental examination Z01.20 and Dental caries K02.9 [facility] [id number] [place] [address] 26066- 4671 Apr, Dental caries K02.9 [facility] [id number] [place] [address] 28910- 1117 Apr, Dental examination Z01.20 IMMUNIZATIONS No Known Immunizations SOCIAL HISTORY Never Assessed REASON FOR VISIT med taper/ suboxone PLAN OF CARE VITAL SIGNS MEDICATIONS Unknown [...]
--- OUTSIDE RECORDS SUMMARY | 2018-07-28 09:22 | XMS REPORT ---
Author Author QUITA POWELL Organization [facility] Address [address] [place] [address] Care Team Providers Care Instrument Panel Assembler Name Role Phone QUITA POWELL Unavailable PROBLEMS Type Condition ICD9-CM Code SCW75-SL Code Onset Dates Condition Status SNOMED Code Problem Anxiety F41.9 Active 19811533 Problem Generalized anxiety disorder F41.1 Active 97375851 Problem Mild episode of recurrent major depressive disorder F33.0 Active 671438065 Problem Chronic pain syndrome G89.4 Active 472796835 Problem Fibromyalgia M79.7 Active 828145457 Problem Conductive hearing loss of left 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 H90.12 Active 626537944 Problem Spondylitis, cervical M46.92 Active 454099454 Problem Chronic insomnia F51.04 Active 134412437 Problem Constipation K59.00 Active 65480805 Problem Rotator cuff arthropathy of left shoulder M12.812 Active 96816722639365282 Problem 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 [id number] [address]- 8586 Jan, [facility] [id number] [place] [address] 51357- 3064 Jan, [facility] [id number] [place] [address] 46229- 0184 Jan, [facility] [id number] [place] [address] 89153- 1635 Jan, [facility] [address] 86691- 5929 Dec, [facility] [address] 97588- 8228 Dec, [facility] [address] 73885- 1118 Dec, Arthritis M19.90 ; Fibromyalgia M79.7 ; Anxiety F41.9 ; Dizziness R42 ; Conductive hearing loss of left 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 H90.12 and Encounter for immunization Z23 [facility] [id number] [place] [address] 74071- 6350 Dec, Rotator cuff arthropathy of left shoulder M12.812 [place] [address] 58643- 9040 Dec, Chronic pain syndrome G89.4 [facility] [id number] [place] [address] 37955- 7144 Dec, Rotator cuff arthropathy of left shoulder M12.812 [facility] [id number] [place] [address] 79140- 2502 Dec, Acute midline thoracic back pain M54.6 ; Chronic pain syndrome G89.4 and Dizziness R42 [facility] [address] 00907- 9178 Dec, [facility] [id number] [place] [address] 63444- 8184 Dec, [facility] [address] 05232- 7687 26 Nov, 2017 Rotator cuff arthropathy of left shoulder M12.812 [place] [id number] [place] [address] 88877- 6356 19 Nov, 2017 Chronic insomnia F51.04 ; Non-healing skin lesion of nose L98.9 ; BPPV (benign paroxysmal positional vertigo), left H81.12 ; Constipation K59.00 and 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 [place] [address] 85348- 6149 Nov, Arthritis M19.90 and Anxiety F41.9 [place] [address] 54866- 3684 Nov, Generalized anxiety disorder F41.1 and Mild episode of recurrent major depressive disorder F33.0 [place] [address] 84635- 5555 Nov, Spondylitis, cervical M46.92 [place] [id number] [place] [address] 13673- 3171 Oct, [place] [address] 11742- 1999 Oct, Basal cell carcinoma of nose C44.311 [place] [id number] [place] [address] 15786- 2421 Oct, Spondylitis, cervical M46.92 and Anxiety F41.9 [place] [id number] [place] [address] 81703- 6546 Oct, Generalized anxiety disorder F41.1 and Mild episode of recurrent major depressive disorder F33.0 [place] [address] 28219- 6084 Oct, [place] [id number] [place] [address] 97340- 3382 Oct, Spondylitis, cervical M46.92 [place] [address] 51970- 4215 Oct, [facility] [id number] [place] [address] 74412- 8566 Sep, Basal cell carcinoma of nose C44.311 [facility] [id number] [place] [address] 47594- 0844 Sep, Generalized anxiety disorder F41.1 and Mild episode of recurrent major depressive disorder F33.0 [facility] [id number] [place] [address] 60442- 5039 Sep, Spondylitis, cervical M46.92 and Anxiety F41.9 [place] [address] 19351- 1959 Sep, [place] [id number] [place] [address] 90447- 9933 Aug, Rotator cuff arthropathy of left shoulder M12.812 [place] [address] 71717- 6552 Aug, Lesion of nose J34.89 [place] [address] 04446- 7277 Aug, Spondylitis, cervical M46.92 ; Fibromyalgia M79.7 and 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 [place] [id number] [place] [address] 30911- 3849 Aug, Fibromyalgia M79.7 [facility] [address] 02943- 8434 Aug, Fibromyalgia M79.7 [facility] [id number] [place] [address] 21485- 6556 Aug, [facility] [address] 53925- 8404 July, [facility] [id number] [place] [address] 12262- 1085 July, [facility] [address] [address]- 7632 July, Arthritis M19.90 [facility] [id number] [place] [address] 80588- 4076 July, Inflammatory arthritis M19.90 [facility] [address] [place] [address] 55045- 7453 Jun, Inflammatory arthritis M19.90 [facility] [id number] [place] [address] 68573- 7536 Jun, Arthritis M19.90 [facility] [id number] [place] [address] 52481- 8969 May, 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 ; Rheumatoid arthritis of left hip without organ or system involvement with positive rheumatoid factor M05.752 ; Chest pain, unspecified type R07.9 and Needs smoking cessation education F17.200 [place] [address] [place] [address] 24900- 6394 May, [place] [id number] [place] [address] 33682- 3667 May, Arthritis M19.90 [facility] [address] [place] [address] 40624- 4996 May, Chest pain, unspecified type R07.9 ; Dyspnea on exertion R06.09 ; Claudication of both lower extremities I73.9 ; Hypertension, unspecified type I10 and Tobacco use Z72.0 [place] [address] [address]- 4938 Apr, Arthritis M19.90 [facility] [id number] [place] [address] 25177- 4016 Apr, Arthritis M19.90 [facility] [address] [address]- 9047 Apr, Sinusitis chronic, frontal J32.1 ; Coronary artery disease involving [place] coronary artery of [place] heart with unstable angina pectoris I25.110 ; Arthritis M19.90 and Fibromyalgia M79.7 [facility] [id number] [place] [address] 78161- 0954 Apr, Sinusitis chronic, frontal J32.1 ; Coronary artery disease involving [place] coronary artery of [place] heart with unstable angina pectoris I25.110 ; Arthritis M19.90 and Fibromyalgia M79.7 [facility] [id number] [place] [address] 05258- 9476 Mar, [facility] [id number] [place] [address] 06212- 1288 Mar, Arthritis M19.90 [facility] [id number] [place] [address] 09257- 2440 Mar, Angina at rest I20.8 [facility] [address] 05837- 5346 Mar, Arthritis M19.90 [facility] [id number] [place] [address] 05860- 3267 Mar, [facility] [id number] [place] [address] 95124- 4189 Feb, [facility] [id number] [place] [address] 17136- 7697 Feb, [facility] [id number] [place] [address] 65226- 2544 Feb, Arthritis M19.90 [facility] [id number] [place] [address] 95973 -4633 Feb, Left foot pain M79.672 and Acute left ankle pain M25.572 [facility] [id number] [place] [address] 03306- 5931 Jan, [facility] [id number] [place] [address] 82763 -2543 Jan, Arthritis M19.90 ; Spondylitis, cervical M46.92 ; Fibromyalgia M79.7 and Family history of hypothyroidism Z83.49 [place] [id number] [place] [address] 85881- 1388 Sep, Dental caries K02.9 [place] [id number] [place] [address] 07099- 7605 Aug, Dental examination Z01.20 [place] [address] 32606- 5614 Apr, Dental examination Z01.20 and Dental caries K02.9 [place] [address] 84807- 4467 Apr, Dental caries K02.9 [place] [id number] [place] [address] 48766- 6840 08 Apr, 2015 Dental examination Z01.20 IMMUNIZATIONS No Known Immunizations SOCIAL HISTORY Never Assessed REASON FOR VISIT PT follow-up PLAN OF CARE Activity Details Follow Up 2 Weeks Reason:F/U PT VITAL SIGNS MEDICATIONS Unknown Medications RESULTS No Results PROCEDURES Procedure Date Ordered Result Body Site THERAPEUTIC EXERCISES Dec 10, 2017 INSTRUCTIONS MEDICATIONS ADMINISTERED No Known Medications [...]
--- OUTSIDE RECORDS SUMMARY | 2018-07-28 09:22 | XMS REPORT ---
Author Author PARISH HOLMAN Organization [facility] Address [address] [place] [address] Care Team Providers Care Carpet Inspector Name Role Phone PARISH HOLAMN Unavailable PROBLEMS Type Condition ICD9-CM Code ZBC12-LU Code Onset Dates Condition Status SNOMED Code Problem Basal cell carcinoma of nose C44.311 Active 839698713 Problem Mild episode of recurrent major depressive disorder F33.0 Active 314054017 Problem Anxiety F41.9 Active 29502880 Problem Chronic pain syndrome G89.4 Active 217129389 Problem Spondylitis, cervical M46.92 Active 407847039 Problem Rotator cuff arthropathy of left shoulder M12.812 Active 60617965487483179 Problem Constipation K59.00 Active 12638653 Problem Generalized anxiety disorder F41.1 Active 00295890 Problem 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 Active 6857958046171440 Problem Chronic insomnia F51.04 Active 185473178 Problem Angina at rest I20.8 Active 935397951 Problem Sinusitis chronic, frontal J32.1 Active 74435402 Problem Fibromyalgia M79.7 Active 146361040 Problem Arthritis M19.90 Active 1639256 Problem Claudication of both lower extremities I73.9 Active 03972988 Problem Needs smoking cessation education F17.200 Active 972806682 Problem Coronary artery disease involving [place] coronary artery of [place] heart with unstable angina pectoris I25.110 Active 6361708625193 Problem 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 Active 211052286 Problem Hypertension, unspecified type I10 Active 61636602 Problem Inflammatory arthritis M19.90 Active 4929535 ALLERGIES No Information ENCOUNTERS Encounter Location Date Diagnosis [facility] [address] [facility] [id number] [address] Jan, [facility] [id number] [address] Jan, [facility] [id number] [place] [address] 77981- 3400 Dec, [facility] [address] 8[address]75- 3463 Dec, [facility] [id number] [place] [address] 66676- 1275 Dec, Chronic pain syndrome G89.4 [facility] [address] 82752- 3905 Dec, Rotator cuff arthropathy of left shoulder M12.812 [facility] [address] 87340- 9374 Dec, Acute midline thoracic back pain M54.6 ; Chronic pain syndrome G89.4 and Dizziness R42 [facility] [address] 59490- 6167 Dec, [facility] [id number] [place] [address] 65166- 2527 Dec, [facility] [address] 31551- 5171 26 Nov, 2017 [facility] [id number] [place] [address] 24118- 8084 19 Nov, 2017 Chronic insomnia F51.04 ; Non-healing skin lesion of nose L98.9 ; BPPV (benign paroxysmal positional vertigo), left H81.12 ; Constipation K59.00 and 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 [facility] [id number] [place] [address] 07371- 0442 10 Nov, 2017 Arthritis M19.90 and Anxiety F41.9 [facility] [id number] [place] [address] 89572- 7270 10 Nov, 2017 Generalized anxiety disorder F41.1 and Mild episode of recurrent major depressive disorder F33.0 [facility] [id number] [place] [address] 05694- 9347 Nov, Spondylitis, cervical M46.92 [facility] [id number] [place] [address] 20762- 3713 Oct, [facility] [id number] [place] [address] 25362- 2146 Oct, Basal cell carcinoma of nose C44.311 [facility] [id number] [place] [address] 47848- 0740 Oct, Spondylitis, cervical M46.92 and Anxiety F41.9 [facility] [id number] [place] [address] 99639- 0864 Oct, Generalized anxiety disorder F41.1 and Mild episode of recurrent major depressive disorder F33.0 [facility] [id number] [place] [address] 70169- 6941 Oct, [facility] [id number] [place] [address] 96074- 6247 Oct, Spondylitis, cervical M46.92 [facility] [id number] [place] [address] 67341- 4579 Oct, [facility] [id number] [place] [address] 12336- 2195 Sep, Basal cell carcinoma of nose C44.311 [facility] [id number] [place] [address] 88076- 5408 Sep, Generalized anxiety disorder F41.1 and Mild episode of recurrent major depressive disorder F33.0 [facility] [address] [address] Sep, Spondylitis, cervical M46.92 and Anxiety F41.9 [facility] [address] [address] 2[address] Sep, [facility] [address] [place] [address] 09188- 0788 Aug, [facility] [address] [address] 0[address] Aug, Lesion of nose J34.89 [facility] [id number] [place] [address] 45892- 3796 Aug, Spondylitis, cervical M46.92 ; Fibromyalgia M79.7 and 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 [facility] [id number] [place] [address] 62006- 1236 Aug, Fibromyalgia M79.7 [facility] [id number] [place] [address] 96020- 5616 Aug, Fibromyalgia M79.7 [facility] [id number] [place] [address] 49024- 2520 Aug, [facility] [id number] [place] [address] 41014- 1443 July, [facility] [id number] [place] [address] 44580- 9108 July, [facility] [id number] [place] [address] 78766- 6373 July, Arthritis M19.90 [facility] [address] [place] [address] 83014- 4476 July, Inflammatory arthritis M19.90 [facility] [address], [place] [address] 58[address] Jun, Inflammatory arthritis M19.90 [facility] [address], [place] [address] 2587 Jun, Arthritis M19.90 [facility] [id number] [place] [address] 18898- 2424 May, 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 ; Rheumatoid arthritis of left hip without organ or system involvement with positive rheumatoid factor M05.752 ; Chest pain, unspecified type R07.9 and Needs smoking cessation education F17.200 [place] [id number] [place] [address] 39601- 1278 May, [place] [id number] [place] [address] 08725- 9519 May, Arthritis M19.90 [place] [id number] [place] [address] 03963- 6798 14 May, 2017 Chest pain, unspecified type R07.9 ; Dyspnea on exertion R06.09 ; Claudication of both lower extremities I73.9 ; Hypertension, unspecified type I10 and Tobacco use Z72.0 [place] [address] 50657- 4521 21 Apr, 2017 Arthritis M19.90 [place] [id number] [place] [address] 27974- 1053 16 Apr, 2017 Arthritis M19.90 [place] [id number] [place] [address] 68019- 0138 12 Apr, 2017 Sinusitis chronic, frontal J32.1 ; Coronary artery disease involving [place] coronary artery of [place] heart with unstable angina pectoris I25.110 ; Arthritis M19.90 and Fibromyalgia M79.7 [place] [address] [place] [address] 13673- 8290 09 Apr, 2017 Sinusitis chronic, frontal J32.1 ; Coronary artery disease involving [place] coronary artery of [place] heart with unstable angina pectoris I25.110 ; Arthritis M19.90 and Fibromyalgia M79.7 [place] [address] [place] [address] 50264- 4367 Mar, [place] [id number] [place] [address] 33522- 3942 Mar, Arthritis M19.90 [place] [id number] [place] [address] 93942- 1184 Mar, Angina at rest I20.8 [place] [address] 50393- 3459 Mar, Arthritis M19.90 [facility] [id number] [place] [address] 40869- 7446 Mar, [facility] [id number] [place] [address] 30503- 3457 Feb, [facility] [id number] [place] [address] 64696- 7300 Feb, [facility] [id number] [place] [address] 06766- 4869 Feb, Arthritis M19.90 [facility] [id number] [place] [address] 93431 -6090 Feb, Left foot pain M79.672 and Acute left ankle pain M25.572 [place] [id number] [place] [address] 72313- 4971 Jan, [facility] [id number] [place] [address] 64233 -1782 Jan, Arthritis M19.90 ; Spondylitis, cervical M46.92 ; Fibromyalgia M79.7 and Family history of hypothyroidism Z83.49 [place] [id number] [place] [address] 39772- 6445 Sep, Dental caries K02.9 [place] [id number] [place] [address] 52496- 3999 Aug, Dental examination Z01.20 [place] [id number] [place] [address] 31684- 1600 23 Apr, 2015 Dental examination Z01.20 and Dental caries K02.9 [place] [id number] [place] [address] 99252- 3533 16 Apr, 2015 Dental caries K02.9 [place] [id number] [place] [address] 01193- 0972 08 Apr, 2015 Dental examination Z01.20 IMMUNIZATIONS No Known Immunizations SOCIAL HISTORY Never Assessed REASON FOR VISIT Controlled refill PLAN OF CARE VITAL SIGNS MEDICATIONS Medication Instructions Dosage Frequency Start Date End Date Duration Status MS Contin 15 mg Orally every 12 hrs 1 tablet 12h Dec, 14 days Active Oxycodone HCl 10 mg [...]
--- OUTSIDE RECORDS SUMMARY | 2018-07-28 09:22 | XMS REPORT ---
Author Author PARISH HOLMAN Organization [facility] [place] Address [address] 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 Name Role Phone PARISH HOLMAN Unavailable PROBLEMS Type Condition ICD9-CM Code CQD76-BY Code Onset Dates Condition Status SNOMED Code Problem Basal cell carcinoma of nose C44.311 Active 323289021 Problem Mild episode of recurrent major depressive disorder F33.0 Active 241921329 Problem Anxiety F41.9 Active 89452177 Problem Chronic pain syndrome G89.4 Active 141342714 Problem Spondylitis, cervical M46.92 Active 812646062 Problem Rotator cuff arthropathy of left shoulder M12.812 Active 77351152060494683 Problem Constipation K59.00 Active 59248419 Problem Generalized anxiety disorder F41.1 Active 79395147 Problem 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 Active 4668872820281993 Problem Chronic insomnia F51.04 Active 595751719 Problem Angina at rest I20.8 Active 295097251 Problem Sinusitis chronic, frontal J32.1 Active 98782927 Problem Fibromyalgia M79.7 Active 406787597 Problem Arthritis M19.90 Active 3996071 Problem Claudication of both lower extremities I73.9 Active 46977118 Problem Needs smoking cessation education F17.200 Active 110429171 Problem Coronary artery disease involving [place] coronary artery of [place] heart with unstable angina pectoris I25.110 Active 9632201648508 Problem 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 Active 518152583 Problem Hypertension, unspecified type I10 Active 69910843 Problem Inflammatory arthritis M19.90 Active 1627392 ALLERGIES Substance Reaction Event Type Date Status Remeron nightmares Drug Allergy Dec, Active ENCOUNTERS Encounter Location Date Diagnosis [facility] [place] [address] [facility] [id number] [address] Jan, [facility] [place] [id number] [place] [address] 98285- 3084 Jan, [facility] [place] [address] 45859- 0463 Dec, [facility] [place] [id number] [place] [address] 91901- 2044 Dec, [facility] [place] [address] 83747- 8245 Dec, Rotator cuff arthropathy of left shoulder M12.812 [facility] [place] [id number] [place] [address] 45997- 6050 Dec, Acute midline thoracic back pain M54.6 ; Chronic pain syndrome G89.4 and Dizziness R42 [facility] [place] [id number] [place] [address] 84159- 4899 Dec, [facility] [place] [address] 43703- 1809 Dec, [facility] [place] [id number] [place] [address] 53996- 8595 Nov, [facility] [place] [address] 60194- 3871 19 Nov, 2017 Chronic insomnia F51.04 ; Non-healing skin lesion of nose L98.9 ; BPPV (benign paroxysmal positional vertigo), left H81.12 ; Constipation K59.00 and 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 [facility] [place] [id number] [place] [address] 40138- 0795 10 Nov, 2017 Arthritis M19.90 and Anxiety F41.9 [place] [address] 30473- 3789 10 Nov, 2017 Generalized anxiety disorder F41.1 and Mild episode of recurrent major depressive disorder F33.0 [facility] [place] [id number] [place] [address] 39276- 1634 04 Nov, 2017 Spondylitis, cervical M46.92 [facility] [place] [id number] [place] [address] 93045- 9401 Oct, [facility] [place] [id number] [place] [address] 87683- 1972 Oct, Basal cell carcinoma of nose C44.311 [facility] [place] [id number] [place] [address] 63334- 4032 Oct, Spondylitis, cervical M46.92 and Anxiety F41.9 [facility] [place] [id number] [place] [address] 89412- 1872 Oct, Generalized anxiety disorder F41.1 and Mild episode of recurrent major depressive disorder F33.0 [facility] [place] [address] [place] [address] 04471- 8409 Oct, [facility] [place] [id number] [place] [address] 72661- 0589 Oct, Spondylitis, cervical M46.92 [facility] [place] [address] [place] [address] 38003- 4047 Oct, [facility] [place] [id number] [place] [address] 25794- 4011 Sep, Basal cell carcinoma of nose C44.311 [facility] [place] [address] [place] [address] 87391- 7006 Sep, Generalized anxiety disorder F41.1 and Mild episode of recurrent major depressive disorder F33.0 [facility] [place] [address] [address]- 2746 Sep, Spondylitis, cervical M46.92 and Anxiety F41.9 [facility] [place] [id number] [place] [address] 44633- 3664 Sep, [facility] [place] [address] [place] [address] 35243- 7644 Aug, [facility] [place] [id number] [place] [address] 07511- 1450 Aug, Lesion of nose J34.89 [facility] [place] [id number] [place] [address] 96238- 3606 Aug, Spondylitis, cervical M46.92 ; Fibromyalgia M79.7 and 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 [facility] [place] [id number] [place] [address] 73247- 5463 Aug, Fibromyalgia M79.7 [facility] [place] [id number] [place] [address] 23570- 2099 Aug, Fibromyalgia M79.7 [facility] [place] [id number] [place] [address] 52072- 5537 Aug, [facility] [place] [id number] [place] [address] 58960- 8281 July, [place] [id number] [place] [address] 72911- 7317 July, [facility] [place] [id number] [place] [address] 45912- 7538 July, Arthritis M19.90 [facility] [place] [id number] [place] [address] 27212- 4551 July, Inflammatory arthritis M19.90 [facility] [place] [id number] [place] [address] 83305- 0148 Jun, Inflammatory arthritis M19.90 [facility] [place] [id number] [place] [address] 59912- 8979 Jun, Arthritis M19.90 [facility] [place] [address] [place] [address] 98460- 1850 May, 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 ; Rheumatoid arthritis of left hip without organ or system involvement with positive rheumatoid factor M05.752 ; Chest pain, unspecified type R07.9 and Needs smoking cessation education F17.200 [facility] [place] [id number] [place] [address] 22578- 1902 May, [place] [id number] [place] [address] 39557- 8482 May, Arthritis M19.90 [place] [id number] [place] [address] 36394- 5701 14 May, 2017 Chest pain, unspecified type R07.9 ; Dyspnea on exertion R06.09 ; Claudication of both lower extremities I73.9 ; Hypertension, unspecified type I10 and Tobacco use Z72.0 [place] [id number] [place] [address] 23713- 0255 Apr, Arthritis M19.90 [place] [id number] [place] [address] 76951- 8099 Apr, Arthritis M19.90 [place] [id number] [place] [address] 44615- 8297 Apr, Sinusitis chronic, frontal J32.1 ; Coronary artery disease involving [place] coronary artery of [place] heart with unstable angina pectoris I25.110 ; Arthritis M19.90 and Fibromyalgia M79.7 [place] [address] [place] [address] 76122- 0431 Apr, Sinusitis chronic, frontal J32.1 ; Coronary artery disease involving [place] coronary artery of [place] heart with unstable angina pectoris I25.110 ; Arthritis M19.90 and Fibromyalgia M79.7 [place] [address] [place] [address] 70934- 3797 Mar, [place] [id number] [place] [address] 18667- 3633 Mar, Arthritis M19.90 [place] [id number] [place] [address] 70655- 7207 Mar, Angina at rest I20.8 [place] [id number] [place] [address] 02507- 6048 Mar, Arthritis M19.90 [place] [address] [place] [address] 57987- 0154 Mar, [facility] [place] [id number] [place] [address] 62468- 2179 Feb, [facility] [place] [id number] [place] [address] 49728- 8455 Feb, [place] [address] 14113- 7972 Feb, Arthritis M19.90 [facility] [id number] [place] [address] 91034 -3494 Feb, Left foot pain M79.672 and Acute left ankle pain M25.572 [place] [id number] [place] [address] 30278- 1539 Jan, [facility] [place] [id number] [place] [address] 82987 -7695 Jan, Arthritis M19.90 ; Spondylitis, cervical M46.92 ; Fibromyalgia M79.7 and Family history of hypothyroidism Z83.49 [place] [id number] [place] [address] 98992- 4767 Sep, Dental caries K02.9 [place] [id number] [place] [address] 18103- 0375 Aug, Dental examination Z01.20 [place] [id number] [place] [address] 31906- 9632 Apr, Dental examination Z01.20 and Dental caries K02.9 [place] [address] [id number] [place] [address] 96841- 2985 16 Apr, 2015 Dental caries K02.9 [place] [address] [id number] [place] [address] 47734- 9487 08 Apr, 2015 Dental examination Z01.20 IMMUNIZATIONS No Known Immunizations SOCIAL HISTORY Never Assessed REASON FOR VISIT balance c/o - CHRIS Garcia, Thinking about Suboxone PLAN OF CARE Activity Details Follow Up 2 Weeks Reason: VITAL SIGNS Height 59.5 in 2017-12-16 Weight 106.8 lbs 2017-12-16 Temperature 97.8 degrees Fahrenheit 2017-12-16 Heart Rate 88 bpm 2017-12-16 Respiratory Rate 20 2017-12-16 BMI 21.21 kg/m2 2017-12-16 Blood pressure systolic 120 mmHg 2017-12-16 Blood pressure diastolic 76 mmHg 2017-12-16 MEDICATIONS Medication Instructions Dosage Frequency Start Date End Date Duration Status Atorvastatin Calcium 20 MG Orally Once a day 1 tablet 24h Active Zyrtec Allergy 10 MG Orally Once a day 1 tablet 24h 30 day(s) Active Nebulizer Active Aspirin Childrens 81 MG Orally Once a day 1 tablet 24h Active Cymbalta 60 mg Orally Once a day 2 capsule 24h Active Meloxicam 15 mg Orally Once a day 1 tablet 24h 20 Aug, 2017 90 days Active Trazodone HCl 100 mg Orally Once a day 0.5 tablet at bedtime 24h Nov, Active Trelegy Ellipta by inhalation route Once a day 1 puff 24h Active Oxygen 2 L by inhalation route at bedtime Active MS Contin 15 mg Orally every 12 hrs 1 tablet 12h Dec, Dec, 14 days Active Amitriptyline HCl 25 MG Orally Once a day at bedtime 1 tablet Oct, 30 days Active DuoNeb by inhalation route 4 times a day 6h Active Oxycodone HCl 10 mg Orally 3 times a day 1 tablet 8h Dec, Dec, 14 days Active Melatonin 3 MG Orally at bedtime 2 Oct, Active RESULTS Name Result Date Reference Range Xray : Spine, Thoracic 2 views (IN HOUSE) 2017-12-16 Xray : Spine, Lumbar 2-3 views (IN HOUSE) 2017-12-16 PROCEDURES Procedure Date Ordered Result Body Site X-RAY EXAM OF THORACIC SPINE Dec 16, 2017 X-RAY EXAM OF LOWER SPINE Dec 16, 2017 INSTRUCTIONS MEDICATIONS ADMINISTERED No Known Medications [...]
--- OUTSIDE RECORDS SUMMARY | 2018-07-28 09:22 | XMS REPORT ---
Author Author QUITA POWELL Organization [facility] Address [address] [place] [address] Care Team Providers Care Back End Engineer Name Role Phone QUITA POWELL Unavailable PROBLEMS Type Condition ICD9-CM Code [id number] Code Onset Dates Condition Status SNOMED Code Problem Anxiety F41.9 Active 71354573 Problem Generalized anxiety disorder F41.1 Active 12996013 Problem Mild episode of recurrent major depressive disorder F33.0 Active 621320135 Problem Chronic pain syndrome G89.4 Active 701679143 Problem Fibromyalgia M79.7 Active 644731851 Problem Conductive hearing loss of left 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 H90.12 Active 604835153 Problem Spondylitis, cervical M46.92 Active 463418088 Problem Chronic insomnia F51.04 Active 282462949 Problem Constipation K59.00 Active 79894835 Problem Rotator cuff arthropathy of left shoulder M12.812 Active 90624571245171818 Problem 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 Active 5290100540499778 Problem Sinusitis chronic, frontal J32.1 Active 14584074 Problem Coronary artery disease involving [place] coronary artery of [place] heart with unstable angina pectoris I25.110 Active 2549048279837 Problem Arthritis M19.90 Active 0454687 Problem Angina at rest I20.8 Active 728199237 Problem Needs smoking cessation education F17.200 Active 506618317 Problem 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 [address] [facility] [id number] [address] Jan, [facility] [id number] [place] [address] 12193- 1199 Jan, [facility] [id number] [place] [address] 05265- 6934 Jan, [facility] [id number] [place] [address] 71930- 3397 Jan, [facility] [address] 25449- 8872 Dec, [facility] [address] 60125- 4359 Dec, [facility] [address] 68588- 1741 Dec, Arthritis M19.90 ; Fibromyalgia M79.7 ; Anxiety F41.9 ; Dizziness R42 ; Conductive hearing loss of left 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 H90.12 and Encounter for immunization Z23 [facility] [id number] [place] [address] 51249- 3102 Dec, Rotator cuff arthropathy of left shoulder M12.812 [place] [address] 13105- 8454 Dec, Chronic pain syndrome G89.4 [facility] [id number] [place] [address] 39727- 0583 Dec, Rotator cuff arthropathy of left shoulder M12.812 [facility] [id number] [place] [address] 38488- 0397 Dec, Acute midline thoracic back pain M54.6 ; Chronic pain syndrome G89.4 and Dizziness R42 [facility] [address] 29152- 3295 Dec, [facility] [id number] [place] [address] 04342- 6148 Dec, 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 [place] [address] 87389- 9099 Nov, Arthritis M19.90 and Anxiety F41.9 [place] [address] 18943- 3147 Nov, Generalized anxiety disorder F41.1 and Mild episode of recurrent major depressive disorder F33.0 [place] [address] 34088- 2801 Nov, Spondylitis, cervical M46.92 [place] [id number] [place] [address] 59549- 8604 Oct, [place] [address] 55600- 5260 Oct, Basal cell carcinoma of nose C44.311 [place] [id number] [place] [address] 55947- 4409 Oct, Spondylitis, cervical M46.92 and Anxiety F41.9 [place] [id number] [place] [address] 52051- 7123 Oct, Generalized anxiety disorder F41.1 and Mild episode of recurrent major depressive disorder F33.0 [place] [address] 23300- 2581 Oct, [place] [id number] [place] [address] 44868- 4199 Oct, Spondylitis, cervical M46.92 [place] [address] 59470- 1061 Oct, [facility] [id number] [place] [address] 42759- 4266 Sep, Basal cell carcinoma of nose C44.311 [facility] [id number] [place] [address] 20602- 9276 Sep, Generalized anxiety disorder F41.1 and Mild episode of recurrent major depressive disorder F33.0 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 [address] 18764- 4768 Aug, Fibromyalgia M79.7 [facility] [id number] [place] [address] 06067- 6215 Aug, [facility] [address] 35882- 0655 July, [facility] [id number] [place] [address] 66799- 4384 July, [facility] [address] [address] 0182 July, Arthritis M19.90 [facility] [id number] [place] [address] 58131- 2105 July, Inflammatory arthritis M19.90 [facility] [address] [place] [address] 32425- 4571 Jun, Inflammatory arthritis M19.90 [facility] [id number] [place] [address] 74058- 4108 Jun, Arthritis M19.90 [facility] [id number] [place] [address] 95977- 3331 May, 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 ; Rheumatoid arthritis of left hip without organ or system involvement with positive rheumatoid factor M05.752 ; Chest pain, unspecified type R07.9 and Needs smoking cessation education F17.200 [place] [address] [place] [address] 94013- 7119 May, [place] [id number] [place] [address] 07327- 8455 May, Arthritis M19.90 [facility] [address] [place] [address] 82249- 5404 May, Chest pain, unspecified type R07.9 ; Dyspnea on exertion R06.09 ; Claudication of both lower extremities I73.9 ; Hypertension, unspecified type I10 and Tobacco use Z72.0 [place] [address] [address]- 4077 Apr, Arthritis M19.90 [facility] [id number] [place] [address] 46947- 0156 Apr, Arthritis M19.90 [facility] [address] [address]- 0448 Apr, Sinusitis chronic, frontal J32.1 ; Coronary artery disease involving [place] coronary artery of [place] heart with unstable angina pectoris I25.110 ; Arthritis M19.90 and Fibromyalgia M79.7 [facility] [id number] [place] [address] 43396- 5745 Apr, Sinusitis chronic, frontal J32.1 ; Coronary artery disease involving [place] coronary artery of [place] heart with unstable angina pectoris I25.110 ; Arthritis M19.90 and Fibromyalgia M79.7 [facility] [id number] [place] [address] 89954- 7566 Mar, [facility] [id number] [place] [address] 17369- 3733 Mar, Arthritis M19.90 [facility] [id number] [place] [address] 24340- 0097 Mar, Angina at rest I20.8 [facility] [address] 80911- 1646 Mar, Arthritis M19.90 [facility] [id number] [place] [address] 41109- 3563 Mar, [facility] [id number] [place] [address] 08001- 9017 Feb, [facility] [id number] [place] [address] 77337- 6057 Feb, [facility] [id number] [place] [address] 92316- 2541 Feb, Arthritis M19.90 [facility] [id number] [place] [address] 12642 -2768 Feb, Left foot pain M79.672 and Acute left ankle pain M25.572 [facility] [id number] [place] [address] 94000- 5615 Jan, [facility] [id number] [place] [address] 27137 -2541 Jan, Arthritis M19.90 ; Spondylitis, cervical M46.92 ; Fibromyalgia M79.7 and Family history of hypothyroidism Z83.49 [place] [id number] [place] [address] 37895- 6569 Sep, Dental caries K02.9 [place] [id number] [place] [address] 10255- 4995 Aug, Dental examination Z01.20 [place] [address] 75847- 0859 Apr, Dental examination Z01.20 and Dental caries K02.9 [place] [address] 62446- 4980 Apr, Dental caries K02.9 [place] [id number] [place] [address] 52372- 4317 Apr, Dental examination Z01.20 IMMUNIZATIONS No Known Immunizations SOCIAL HISTORY Never Assessed REASON FOR VISIT PLAN OF CARE Activity Details Follow Up 2 Weeks Reason:F/U PT VITAL SIGNS MEDICATIONS Unknown Medications RESULTS No Results PROCEDURES Procedure Date Ordered Result Body Site THERAPEUTIC EXERCISES Dec 31, 2017 INSTRUCTIONS MEDICATIONS ADMINISTERED No Known Medications [...]
--- OUTSIDE RECORDS SUMMARY | 2018-07-28 09:23 | XMS REPORT ---
Author Author PARISH HOLMAN Organization [facility] Address [address] 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 Active 5822579634179436 Problem Mild episode of recurrent major depressive disorder F33.0 Active 893036975 Problem Fibromyalgia M79.7 Active 716505284 Problem Arthritis M19.90 Active 8020197 Problem Spondylitis, cervical M46.92 Active 224303174 Problem Coronary artery disease involving [place] coronary artery of [place] heart with unstable angina pectoris I25.110 Active 1574113371751 Problem Hypertension, unspecified type I10 Active 43196010 Problem Angina at rest I20.8 Active 305826130 Problem Claudication of both lower extremities I73.9 Active 36195953 Problem Sinusitis chronic, frontal J32.1 Active 62040830 Problem 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 Active 782100606 ALLERGIES No Information ENCOUNTERS Encounter Location Date Diagnosis [facility] [id number] [address]- 9192 Jan, [facility] [id number] [address]- 4703 Dec, [facility] [id number] [address]- 3466 Dec, [facility] [id number] [place] [address] 68432- 1323 Dec, [facility] [id number] [place] [address] 51737- 1280 Nov, [facility] [id number] [place] [address] 51376- 1643 Nov, Chronic insomnia F51.04 ; Non-healing skin lesion of nose L98.9 ; BPPV (benign paroxysmal positional vertigo), left H81.12 ; Constipation K59.00 and 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 [place] [address] [id number] [place] [address] 69390- 4714 Nov, Arthritis M19.90 and Anxiety F41.9 [place] [address] [address] [id number] [place] [address] 91732- 2531 Nov, Generalized anxiety disorder F41.1 and Mild episode of recurrent major depressive disorder F33.0 [place] [address] [id number] [place] [address] 27811- 0437 Nov, Spondylitis, cervical M46.92 [place] [address] [address] [id number] [place] [address] 77171- 5527 Oct, [place] [address] [address] [id number] [place] [address] 24981- 4309 Oct, Basal cell carcinoma of nose C44.311 [facility] [address] [id number] [place] [address] 64721- 6759 Oct, Spondylitis, cervical M46.92 and Anxiety F41.9 [place] [address] [address] [id number] [place] [address] 91484- 9058 Oct, Generalized anxiety disorder F41.1 and Mild episode of recurrent major depressive disorder F33.0 [facility] [id number] [place] [address] 72985- 7433 Oct, [place] [address] [id number] [place] [address] 76935- 4910 Oct, Spondylitis, cervical M46.92 [place] [address] 18918- 9784 Oct, [facility] [id number] [place] [address] 37869- 6664 Sep, Basal cell carcinoma of nose C44.311 [place] [address] [id number] [place] [address] 25543- 1931 Sep, Generalized anxiety disorder F41.1 and Mild episode of recurrent major depressive disorder F33.0 [place] [address] 92199- 1713 Sep, Spondylitis, cervical M46.92 and Anxiety F41.9 [place] [address] [id number] [place] [address] 61906- 5847 Sep, [place] [address] [id number] [place] [address] 65920- 8385 Aug, [place] [address] [id number] [place] [address] 81865- 6284 Aug, Lesion of nose J34.89 [place] [address] [id number] [place] [address] 37205- 0484 Aug, Spondylitis, cervical M46.92 ; Fibromyalgia M79.7 and 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 [facility] [id number] [place] [address] 96885- 5393 Aug, Fibromyalgia M79.7 [facility] [id number] [place] [address] 72745- 6464 Aug, Fibromyalgia M79.7 [facility] [id number] [place] [address] 98325- 5710 Aug, [place] [address] [id number] [place] [address] 48731- 8158 July, [facility] [address], [place] [address]- 6296 July, [facility] [id number] [place] [address] 98466- 7749 July, Arthritis M19.90 [facility] [id number] [place] [address] 82982- 9967 July, Inflammatory arthritis M19.90 [facility] [id number] [place] [address] 69876- 0123 Jun, Inflammatory arthritis M19.90 [place] [id number] [place] [address] 75384- 7858 Jun, Arthritis M19.90 [place] [id number] [place] [address] 41757- 6757 May, 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 ; Rheumatoid arthritis of left hip without organ or system involvement with positive rheumatoid factor M05.752 ; Chest pain, unspecified type R07.9 and Needs smoking cessation education F17.200 [place] [address], [place] [address]- 6507 May, [place] [address], [place] [address]- 3853 May, Arthritis M19.90 [place] [id number] [place] [address] 21301- 4462 May, Chest pain, unspecified type R07.9 ; Dyspnea on exertion R06.09 ; Claudication of both lower extremities I73.9 ; Hypertension, unspecified type I10 and Tobacco use Z72.0 [place] [address], [place] [address]- 8035 Apr, Arthritis M19.90 [place] [address], [place] [address]- 9792 Apr, Arthritis M19.90 [facility] [address], [place] [address]- 1675 12 Apr, 2017 Sinusitis chronic, frontal J32.1 ; Coronary artery disease involving [place] coronary artery of [place] heart with unstable angina pectoris I25.110 ; Arthritis M19.90 and Fibromyalgia M79.7 [facility] [id number] [place] [address] 16517 2546 Apr, Sinusitis chronic, frontal J32.1 ; Coronary artery disease involving [place] coronary artery of [place] heart with unstable angina pectoris I25.110 ; Arthritis M19.90 and Fibromyalgia M79.7 [facility] [id number] [place] [address] 13850- 4606 Mar, [facility] [id number] [place] [address] 56636- 2576 Mar, Arthritis M19.90 [facility] [id number] [place] [address] 16405- 9115 Mar, Angina at rest I20.8 [facility] [id number] [place] [address] 48197 2544 Mar, Arthritis M19.90 [facility] [id number] [place] [address] 29095- 8104 Mar, [facility] [id number] [place] [address] 54374- 6467 Feb, [facility] [id number] [place] [address] 49433 2541 Feb, [facility] [id number] [place] [address] 87899- 6142 Feb, Arthritis M19.90 [facility] [id number] [place] [address] 41081 -2635 Feb, Left foot pain M79.672 and Acute left ankle pain M25.572 [facility] [id number] [place] [address] 60999- 3909 Jan, [facility] [address] [facility] [id number] [address] Jan, Arthritis M19.90 ; Spondylitis, cervical M46.92 ; Fibromyalgia M79.7 and Family history of hypothyroidism Z83.49 [address] [place] [id number] [address] Sep, Dental caries K02.9 [place] [place] [id number] [place] [id number] Aug, Dental examination Z01.20 [place] [id number] [place] [phone] Apr, Dental examination Z01.20 and Dental caries K02.9 [address] [place] [id number], [place] [address] Apr, Dental caries K02.9 [address] [place] [id number] [place] [phone] Apr, Dental examination Z01.20 IMMUNIZATIONS No Known Immunizations SOCIAL HISTORY Never Assessed REASON FOR VISIT Controlled Med Refill PLAN OF CARE VITAL SIGNS MEDICATIONS Medication Instructions Dosage Frequency Start Date End Date Duration Status MS Contin 15 mg Orally every 12 hrs 1 tablet 12h Nov, 28 days Active Oxycodone HCl 10 mg Orally 3 times a day 1 tablet 8h Nov, Dec, 28 days Active RESULTS No Results PROCEDURES [...]
--- OUTSIDE RECORDS SUMMARY | 2018-07-28 09:23 | XMS REPORT ---
Author Author BLAYNE VERDUGO Organization [facility] Address [address] [place] [address] Care Team Providers Care Files Supervisor Name Role Phone BLAYNE VERDUGO Unavailable PROBLEMS Type Condition ICD9-CM Code [id number] Code Onset Dates Condition Status SNOMED Code Problem Inflammatory arthritis M19.90 Active 5194444 Problem Anxiety F41.9 Active 77857595 Problem Basal cell carcinoma of nose C44.311 Active 434886305 Problem Chronic pain syndrome G89.4 Active 722995289 Problem Constipation K59.00 Active 74161980 Problem Mild episode of recurrent major depressive disorder F33.0 Active 254489946 Problem Generalized anxiety disorder F41.1 Active 26987373 Problem Chronic insomnia F51.04 Active 955854381 Problem 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 Active 9753692301105687 Problem Arthritis M19.90 Active 1068906 Problem Angina at rest I20.8 Active 271432482 Problem Spondylitis, cervical M46.92 Active 388038781 Problem Fibromyalgia M79.7 Active 643773432 Problem Hypertension, unspecified type I10 Active 61795726 Problem Claudication of both lower extremities I73.9 Active 65665268 Problem Sinusitis chronic, frontal J32.1 Active 67975578 Problem Needs smoking cessation education F17.200 Active 668940674 Problem 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.110 Active 5327107858583 Problem 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 Active 211407317 ALLERGIES Substance Reaction Event Type Date Status Remeron nightmares Drug Allergy Nov, Active ENCOUNTERS Encounter Location Date Diagnosis [facility] [address] [facility] [id number], [place] [address] Jan, [facility] [address] [facility] [id number], [place] [address] Dec, [facility] [id number] [place] [address] 25070- 3910 Dec, [facility] [id number] [place] [address] 97006- 0126 Dec, [facility] [address] 15666- 6035 Dec, Acute midline thoracic back pain M54.6 ; Chronic pain syndrome G89.4 and Dizziness R42 [facility] [address] 09143- 8222 Dec, [facility] [address] 59133- 6052 Dec, [facility] [address] 27219- 6955 Nov, [facility] [address] 68675- 6735 Nov, Chronic insomnia F51.04 ; Non-healing skin lesion of nose L98.9 ; BPPV (benign paroxysmal positional vertigo), left H81.12 ; Constipation K59.00 and 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 [facility] [id number] [place] [address] 54706- 9108 Nov, Arthritis M19.90 and Anxiety F41.9 [facility] [id number] [place] [address] 18565- 3857 Nov, Generalized anxiety disorder F41.1 and Mild episode of recurrent major depressive disorder F33.0 [facility] [id number] [place] [address] 15001- 9188 Nov, Spondylitis, cervical M46.92 [facility] [id number] [place] [address] 12056- 9640 Oct, [facility] [address] 39771- 4385 Oct, Basal cell carcinoma of nose C44.311 [facility] [address] [place] [address] 28446- 8233 Oct, Spondylitis, cervical M46.92 and Anxiety F41.9 [facility] [id number] [place] [address] 21426- 4316 Oct, Generalized anxiety disorder F41.1 and Mild episode of recurrent major depressive disorder F33.0 [facility] [id number] [place] [address] 32880- 8791 Oct, [facility] [id number] [place] [address] 92291- 4573 Oct, Spondylitis, cervical M46.92 [facility] [id number] [place] [address] 09219- 2547 Oct, [facility] [id number] [place] [address] 70044- 8278 Sep, Basal cell carcinoma of nose C44.311 [facility] [id number] [place] [address] 56494- 3491 Sep, Generalized anxiety disorder F41.1 and Mild episode of recurrent major depressive disorder F33.0 [facility] [address] [place] [address] 55082- 8036 Sep, Spondylitis, cervical M46.92 and Anxiety F41.9 [facility] [id number] [place] [address] 90704- 6092 Sep, [facility] [id number] [place] [address] 63751- 2072 Aug, [facility] [id number] [place] [address] 99338- 9502 Aug, Lesion of nose J34.89 [facility] [address] [place] [address] 73207- 2064 Aug, Spondylitis, cervical M46.92 ; Fibromyalgia M79.7 and 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 [facility] [address] [address] 0157 Aug, Fibromyalgia M79.7 [facility] [id number] [place] [address] 53564- 0202 Aug, Fibromyalgia M79.7 [facility] [id number] [place] [address] 39402- 3618 Aug, [facility] [id number] [place] [address] 49740- 0537 July, [facility] [id number] [place] [address] 75450- 8333 July, [facility] [id number] [place] [address] 59190- 4035 July, Arthritis M19.90 [facility] [id number] [place] [address] 74062- 9573 July, Inflammatory arthritis M19.90 [facility] [id number] [place] [address] 12254- 4005 Jun, Inflammatory arthritis M19.90 [facility] [id number] [place] [address] 79583- 3221 Jun, Arthritis M19.90 [facility] [address] [place] [address] 50606- 2256 May, 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 ; Rheumatoid arthritis of left hip without organ or system involvement with positive rheumatoid factor M05.752 ; Chest pain, unspecified type R07.9 and Needs smoking cessation education F17.200 [facility] [id number] [place] [address] 90456- 9698 May, [facility] [id number] [place] [address] 93846- 5510 May, Arthritis M19.90 [facility] [id number] [place] [address] 72556- 4893 14 May, 2017 Chest pain, unspecified type R07.9 ; Dyspnea on exertion R06.09 ; Claudication of both lower extremities I73.9 ; Hypertension, unspecified type I10 and Tobacco use Z72.0 [place] [id number] [place] [address] 24650- 0351 21 Apr, 2017 Arthritis M19.90 [place] [id number] [place] [address] 44084- 6318 Apr, Arthritis M19.90 [place] [id number] [place] [address] 22087- 1464 Apr, Sinusitis chronic, [facility] J32.1 ; 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.110 ; Arthritis M19.90 and Fibromyalgia M79.7 [place] [id number] [place] [address] 88630- 5105 Apr, Sinusitis chronic, frontal J32.1 ; 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.110 ; Arthritis M19.90 and Fibromyalgia M79.7 [place] [id number] [place] [address] 22554- 1107 Mar, [place] [id number] [place] [address] 61744- 1474 Mar, Arthritis M19.90 [place] [id number] [place] [address] 09500- 6728 Mar, Angina at rest I20.8 [place] [id number] [place] [address] 35757- 5427 Mar, Arthritis M19.90 [place] [id number] [place] [address] 27993- 3524 Mar, [place] [id number] [place] [address] 61934- 6806 Feb, [place] [id number] [place] [address] 13243- 1216 Feb, [place] [id number] [place] [address] 91994- 0082 Feb, Arthritis M19.90 [facility] [id number] [place] [address] 70789 -3672 Feb, Left foot pain M79.672 and Acute left ankle pain M25.572 [place] [id number] [place] [address] 01836- 7527 Jan, [facility] [place] [id number] [place] [address] 70915 -9309 Jan, Arthritis M19.90 ; Spondylitis, cervical M46.92 ; Fibromyalgia M79.7 and Family history of hypothyroidism Z83.49 [place] [id number] [place] [address] 28445- 0995 Sep, Dental caries K02.9 [place] [id number] [place] [address] 44785- 3316 Aug, Dental examination Z01.20 [place] [id number] [place] [address] 88550- 5245 Apr, Dental examination Z01.20 and Dental caries K02.9 [place] [id number] [place] [address] 01221- 1851 Apr, Dental caries K02.9 [place] [id number] [place] [address] 71348- 8010 Apr, Dental examination Z01.20 IMMUNIZATIONS No Known Immunizations SOCIAL HISTORY Never Assessed REASON FOR VISIT ONEIDA f/u- AB/MA PLAN OF CARE Activity Details Follow Up 2 Months Reason:ONEIDA f/u VITAL SIGNS Height 59.5 in 2017-11-24 Weight 106.9 lbs 2017-11-24 Heart Rate 90 bpm 2017-11-24 Respiratory Rate 20 2017-11-24 BMI 21.23 kg/m2 2017-11-24 Blood pressure systolic 120 mmHg 2017-11-24 Blood pressure diastolic 78 mmHg 2017-11-24 MEDICATIONS Medication Instructions Dosage Frequency Start Date End Date Duration Status Meloxicam 15 mg Orally Once a day 1 tablet 24h Aug, 90 days Active Aspirin Childrens 81 MG Orally Once a day 1 tablet 24h Active Melatonin 3 MG Orally at bedtime 2 Oct, Active Amitriptyline HCl 25 MG Orally Once a day at bedtime 1 tablet Oct, 30 days Active Nebulizer Active Oxycodone HCl 10 mg Orally 3 times a day 1 tablet 8h Nov, Dec, 28 days Active Zyrtec Allergy 10 MG Orally Once a day 1 tablet 24h 30 day(s) Active Oxygen 2 L by inhalation route at bedtime Active Trelegy Ellipta by inhalation route Once a day 1 puff 24h Active DuoNeb by inhalation route 4 times a day 6h Active Nitroglycerin 0.4 MG Sublingual prn chest pain. at onset. may repeat q5min, if 3 doses taken, need to report to er. 1 tablet Not-Taking Xanax 0.5 MG Orally once daily as needed 1 tablet Sep, Active Atorvastatin Calcium 20 MG Orally Once a day 1 tablet 24h Active MS Contin 15 mg Orally every 12 hrs 1 tablet 12h Nov, 28 days Active Cymbalta 60 mg Orally Once a day 2 capsule 24h Active Claritin 10 MG Orally Once a day 1 tablet 24h Not-Taking RESULTS No Results PROCEDURES No Known procedures [...]
--- OUTSIDE RECORDS SUMMARY | 2018-07-28 09:23 | XMS REPORT ---
Author Author PARISH HOLMAN Organization [facility] Address [address] [place] [address] Care Team Providers Care Operations Manager Assistant Name Role Phone PARISH HOLMAN Unavailable PROBLEMS Type Condition ICD9-CM Code SCB39-KC Code Onset Dates Condition Status SNOMED Code Problem Basal cell carcinoma of nose C44.311 Active 904556708 Problem Mild episode of recurrent major depressive disorder F33.0 Active 822330370 Problem Anxiety F41.9 Active 86990713 Problem Chronic pain syndrome G89.4 Active 146288936 Problem Spondylitis, cervical M46.92 Active 179762946 Problem Rotator cuff arthropathy of left shoulder M12.812 Active 35387308095836143 Problem Constipation K59.00 Active 43488423 Problem Generalized anxiety disorder F41.1 Active 25895801 Problem 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 Active 8146699471014322 Problem Chronic insomnia F51.04 Active 304199531 Problem Angina at rest I20.8 Active 576423576 Problem Sinusitis chronic, frontal J32.1 Active 57881500 Problem Fibromyalgia M79.7 Active 645425098 Problem Arthritis M19.90 Active 0043124 Problem Claudication of both lower extremities I73.9 Active 87978028 Problem Needs smoking cessation education F17.200 Active 454733183 Problem Coronary artery disease involving [place] coronary artery of [place] heart with unstable angina pectoris I25.110 Active 7695415710316 Problem 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 Active 146139632 Problem Hypertension, unspecified type I10 Active 26317109 Problem Inflammatory arthritis M19.90 Active 2750987 ALLERGIES No Information ENCOUNTERS Encounter Location Date Diagnosis [facility] [address] [facility] [id number], [place] [address] Jan, [facility] [id number], [place] [address]- 8717 Jan, [facility] [id number] [place] [address] 10438- 3768 Dec, [facility] [id number] [place] [address] 34914- 1596 Dec, [facility] [id number] [place] [address] 21481- 7672 Dec, Rotator cuff arthropathy of left shoulder M12.812 [facility] [address] 58336- 3893 Dec, Acute midline thoracic back pain M54.6 ; Chronic pain syndrome G89.4 and Dizziness R42 [facility] [id number] [place] [address] 82204- 1383 Dec, [facility] [id number] [place] [address] 31366- 8500 Dec, [facility] [id number] [place] [address] 70004- 6517 Nov, [facility] [id number] [place] [address] 49839- 6918 Nov, Chronic insomnia F51.04 ; Non-healing skin lesion of nose L98.9 ; BPPV (benign paroxysmal positional vertigo), left H81.12 ; Constipation K59.00 and 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 [facility] [id number] [place] [address] 61464- 6434 Nov, Arthritis M19.90 and Anxiety F41.9 [facility] [id number] [place] [address] 63813- 4176 10 Nov, 2017 Generalized anxiety disorder F41.1 and Mild episode of recurrent major depressive disorder F33.0 [facility] [id number] [place] [address] 57088- 4579 04 Nov, 2017 Spondylitis, cervical M46.92 [facility] [address] [place] [address]- 5177 Oct, [facility] [id number] [place] [address] 95758- 5061 Oct, Basal cell carcinoma of nose C44.311 [facility] [id number] [place] [address] 79831- 3203 Oct, Spondylitis, cervical M46.92 and Anxiety F41.9 [facility] [id number] [place] [address] 72946- 3886 Oct, Generalized anxiety disorder F41.1 and Mild episode of recurrent major depressive disorder F33.0 [facility] [id number] [place] [address] 33493- 1430 Oct, [facility] [id number] [place] [address] 36492- 0757 Oct, Spondylitis, cervical M46.92 [facility] [id number] [place] [address] 53862- 1450 Oct, [facility] [id number] [place] [address] 15620- 0226 Sep, Basal cell carcinoma of nose C44.311 [facility] [address] [place] [address] 03305- 3454 Sep, Generalized anxiety disorder F41.1 and Mild episode of recurrent major depressive disorder F33.0 [facility] [address] [place] [address] 02900- 3735 Sep, Spondylitis, cervical M46.92 and Anxiety F41.9 [facility] [id number] [place] [address] 83628- 8215 Sep, [facility] [id number] [place] [address] 30408- 2386 Aug, [facility] [id number] [place] [address] 44542- 1367 Aug, Lesion of nose J34.89 [facility] [address], [place] [address]- 5780 Aug, Spondylitis, cervical M46.92 ; Fibromyalgia M79.7 and 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 [facility] [address] [id number], [place] [address]- 3011 Aug, Fibromyalgia M79.7 [facility] [id number] [place] [address] 28855- 3056 Aug, Fibromyalgia M79.7 [facility] [id number] [place] [address] 63314- 8909 Aug, [facility] [id number] [place] [address] 60686- 6368 July, [facility] [id number] [place] [address] 10814- 5463 July, [facility] [id number] [place] [address] 64082- 8069 July, Arthritis M19.90 [facility] [id number] [place] [address] 16621- 8198 July, Inflammatory arthritis M19.90 [facility] [id number] [place] [address] 95425- 6066 Jun, Inflammatory arthritis M19.90 [facility] [id number] [place] [address] 06168- 5119 Jun, Arthritis M19.90 [facility] [address], [place] [address]- 2948 May, 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 ; Rheumatoid arthritis of left hip without organ or system involvement with positive rheumatoid factor M05.752 ; Chest pain, unspecified type R07.9 and Needs smoking cessation education F17.200 [facility] [address], [place] [address]- 1629 May, [facility] [id number] [place] [address] 06989- 1093 May, Arthritis M19.90 [facility] [id number] [place] [address] 82534- 3809 14 May, 2017 Chest pain, unspecified type R07.9 ; Dyspnea on exertion R06.09 ; Claudication of both lower extremities I73.9 ; Hypertension, unspecified type I10 and Tobacco use Z72.0 [place] [id number] [place] [address] 77060- 4568 Apr, Arthritis M19.90 [place] [address] [id number] [place] [address] 02207- 1036 Apr, Arthritis M19.90 [place] [id number] [place] [address] 94816- 9477 Apr, Sinusitis chronic, frontal J32.1 ; Coronary artery disease involving [place] coronary artery of [place] heart with unstable angina pectoris I25.110 ; Arthritis M19.90 and Fibromyalgia M79.7 [place] [id number] [place] [address] 60257- 9012 Apr, Sinusitis chronic, frontal J32.1 ; Coronary artery disease involving [place] coronary artery of [place] heart with unstable angina pectoris I25.110 ; Arthritis M19.90 and Fibromyalgia M79.7 [place] [id number] [place] [address] 55107- 1812 Mar, [place] [id number] [place] [address] 04515- 6554 Mar, Arthritis M19.90 [place] [address] [id number] [place] [address] 33638- 8422 Mar, Angina at rest I20.8 [place] [address] [id number] [place] [address] 86849- 7995 Mar, Arthritis M19.90 [place] [address] [id number] [place] [address] 18789- 3664 Mar, [place] [address] [id number] [place] [address] 92027- 6846 Feb, [place] [address] [id number] [place] [address] 35272- 4837 Feb, [place] [address] [place] [id number] [place] [address] 87031- 9542 Feb, Arthritis M19.90 [facility] [address] [id number] [place] [address] 56293 -5997 Feb, Left foot pain M79.672 and Acute left ankle pain M25.572 [place] [address] [place] [id number] [place] [address] 73189- 2874 Jan, [facility] [place] [address] [place] [id number] [place] [address] 70119 -0187 Jan, Arthritis M19.90 ; Spondylitis, cervical M46.92 ; Fibromyalgia M79.7 and Family history of hypothyroidism Z83.49 [place] [address] [id number] [place] [address] 12313- 6348 Sep, Dental caries K02.9 [place] [address] [id number] [place] [address] 53145- 2002 Aug, Dental examination Z01.20 [place] [address] [id number] [place] [address] [phone] Apr, Dental examination Z01.20 and Dental caries K02.9 [place] [id number] [place] [address] [phone] 16 Apr, 2015 Dental caries K02.9 [place] [id number] [place] [address] [phone] 08 Apr, 2015 Dental examination Z01.20 IMMUNIZATIONS [...]
--- OUTSIDE RECORDS SUMMARY | 2018-07-28 09:23 | XMS REPORT ---
Author Author PARISH HOLMAN Organization [facility] Address [address] [place] [address] Care Team Providers Care Materials Inspector Name Role Phone PARISH HOLMAN Unavailable PROBLEMS Type Condition ICD9-CM Code YEK58-WT Code Onset Dates Condition Status SNOMED Code Problem Basal cell carcinoma of nose C44.311 Active 774026169 Problem Mild episode of recurrent major depressive disorder F33.0 Active 669492951 Problem Anxiety F41.9 Active 81017199 Problem Chronic pain syndrome G89.4 Active 481249610 Problem Spondylitis, cervical M46.92 Active 908328797 Problem Rotator cuff arthropathy of left shoulder M12.812 Active 65674009114835431 Problem Constipation K59.00 Active 28491161 Problem Generalized anxiety disorder F41.1 Active 42638621 Problem 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 Active 7270260530275562 Problem Chronic insomnia F51.04 Active 313543209 Problem Angina at rest I20.8 Active 771187774 Problem Sinusitis chronic, frontal J32.1 Active 68973547 Problem Fibromyalgia M79.7 Active 187350305 Problem Arthritis M19.90 Active 1029434 Problem Claudication of both lower extremities I73.9 Active 89323958 Problem Needs smoking cessation education F17.200 Active 633153583 Problem Coronary artery disease involving [place] coronary artery of [place] heart with unstable angina pectoris I25.110 Active 4824289632445 Problem 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 [id number] [address] Jan, [facility] [id number] [address] 75[address] Jan, [facility] [id number] [place] [address] 57838- 8277 Dec, [facility] [id number] [place] [address] 15152- 0127 Dec, [facility] [id number] [place] [address] 79631- 8723 Dec, Rotator cuff arthropathy of left shoulder M12.812 [facility] [address] [address]- 8[address] Dec, Acute midline thoracic back pain M54.6 ; Chronic pain syndrome G89.4 and Dizziness R42 [facility] [id number] [place] [address] 88693- 5519 Dec, [facility] [id number] [place] [address] 50829- 7501 Dec, [facility] [id number] [place] [address] 88647- 6758 Nov, [facility] [id number] [place] [address] 26195- 7471 Nov, Chronic insomnia F51.04 ; Non-healing skin lesion of nose L98.9 ; BPPV (benign paroxysmal positional vertigo), left H81.12 ; Constipation K59.00 and 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 [facility] [id number] [place] [address] 36254- 1271 Nov, Arthritis M19.90 and Anxiety F41.9 [facility] [id number] [place] [address] 24572- 4424 10 Nov, 2017 Generalized anxiety disorder F41.1 and Mild episode of recurrent major depressive disorder F33.0 [facility] [id number] [place] [address] 20831- 4233 04 Nov, 2017 Spondylitis, cervical M46.92 [facility] [address] [place] [address]- 8519 Oct, [facility] [id number] [place] [address] 12028- 5055 Oct, Basal cell carcinoma of nose C44.311 [facility] [id number] [place] [address] 27633- 1628 Oct, Spondylitis, cervical M46.92 and Anxiety F41.9 [facility] [id number] [place] [address] 50353- 8559 Oct, Generalized anxiety disorder F41.1 and Mild episode of recurrent major depressive disorder F33.0 [facility] [id number] [place] [address] 95882- 1197 Oct, [facility] [id number] [place] [address] 08624- 5917 Oct, Spondylitis, cervical M46.92 [facility] [id number] [place] [address] 84493- 1111 Oct, [facility] [id number] [place] [address] 30396- 8790 Sep, Basal cell carcinoma of nose C44.311 [facility] [address] [place] [address] 27813- 8965 Sep, Generalized anxiety disorder F41.1 and Mild episode of recurrent major depressive disorder F33.0 [facility] [address] [place] [address] 93545- 0560 Sep, Spondylitis, cervical M46.92 and Anxiety F41.9 [facility] [id number] [place] [address] 44817- 5973 Sep, [facility] [id number] [place] [address] 66434- 2557 Aug, [facility] [address] [place] [address] 58937- 1272 Aug, Lesion of nose J34.89 [facility] [address] [address] 3328 Aug, Spondylitis, cervical M46.92 ; Fibromyalgia M79.7 and 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 [facility] [id number] [address] 1656 Aug, Fibromyalgia M79.7 [facility] [id number] [place] [address] 63690- 2816 Aug, Fibromyalgia M79.7 [facility] [id number] [place] [address] 04056- 6000 Aug, [facility] [id number] [place] [address] 42787- 6068 July, [facility] [id number] [place] [address] 30184- 1085 July, [facility] [id number] [place] [address] 73205- 8151 July, Arthritis M19.90 [facility] [id number] [place] [address] 06833- 4646 July, Inflammatory arthritis M19.90 [facility] [address] [place] [address] 85459- 2951 Jun, Inflammatory arthritis M19.90 [facility] [address] [place] [address] 78112- 3645 Jun, Arthritis M19.90 [facility] [address], [place] [address] 4243 May, 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 ; Rheumatoid arthritis of left hip without organ or system involvement with positive rheumatoid factor M05.752 ; Chest pain, unspecified type R07.9 and Needs smoking cessation education F17.200 [facility] [address] [address] 4719 May, [facility] [address] [place] [address] 41809- 8182 May, Arthritis M19.90 [facility] [id number] [place] [address] 69768- 3613 14 May, 2017 Chest pain, unspecified type R07.9 ; Dyspnea on exertion R06.09 ; Claudication of both lower extremities I73.9 ; Hypertension, unspecified type I10 and Tobacco use Z72.0 [place] [id number] [place] [address] 65505- 0410 Apr, Arthritis M19.90 [place] [id number] [place] [address] 55164- 8436 Apr, Arthritis M19.90 [place] [id number] [place] [address] 53686- 9365 Apr, Sinusitis chronic, frontal J32.1 ; Coronary artery disease involving [place] coronary artery of [place] heart with unstable angina pectoris I25.110 ; Arthritis M19.90 and Fibromyalgia M79.7 [place] [id number] [place] [address] 24536- 1212 Apr, Sinusitis chronic, frontal J32.1 ; Coronary artery disease involving [place] coronary artery of [place] heart with unstable angina pectoris I25.110 ; Arthritis M19.90 and Fibromyalgia M79.7 [place] [address] [place] [address] 30040- 7501 Mar, [place] [id number] [place] [address] 81548- 4912 Mar, Arthritis M19.90 [place] [id number] [place] [address] 70181- 6678 Mar, Angina at rest I20.8 [place] [id number] [place] [address] 78463- 5369 Mar, Arthritis M19.90 [place] [id number] [place] [address] 42259- 5035 Mar, [facility] [address] [place] [address] 92292- 0285 Feb, [place] [id number] [place] [address] 71156- 8884 Feb, [place] [id number] [place] [address] 59162- 2457 Feb, Arthritis M19.90 [facility] [id number] [place] [address] 94679 -8088 Feb, Left foot pain M79.672 and Acute left ankle pain M25.572 [place] [id number] [place] [address] 13139- 4302 Jan, [facility] [place] [id number] [place] [address] 11009 -0696 Jan, Arthritis M19.90 ; Spondylitis, cervical M46.92 ; Fibromyalgia M79.7 and Family history of hypothyroidism Z83.49 [place] [id number] [place] [address] 34356- 9497 Sep, Dental caries K02.9 [place] [id number] [place] [address] 68326- 9518 Aug, Dental examination Z01.20 [place] [id number] [place] [address] 21404- 5272 23 Apr, 2015 Dental examination Z01.20 and Dental caries K02.9 [place] [id number] [place] [address] 10026- 7131 16 Apr, 2015 Dental caries K02.9 [place] [id number] [place] [address] 36582- 0093 08 Apr, 2015 Dental examination Z01.20 IMMUNIZATIONS No Known Immunizations SOCIAL HISTORY Never Assessed REASON FOR VISIT Controlled Med Refill 12/16 PLAN OF CARE VITAL SIGNS MEDICATIONS Unknown [...]
--- OUTSIDE RECORDS SUMMARY | 2018-07-28 09:24 | XMS REPORT ---
Author Author QUITA POWELL Organization [facility] [place] Address [address] 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 Active 4915548301284764 Problem Mild episode of recurrent major depressive disorder F33.0 Active 636325495 Problem Fibromyalgia M79.7 Active 276922957 Problem Arthritis M19.90 Active 9232832 Problem Spondylitis, cervical M46.92 Active 149811238 Problem Coronary artery disease involving [place] coronary artery of [place] heart with unstable angina pectoris I25.110 Active 2792534018320 Problem Hypertension, unspecified type I10 Active 30489519 Problem Angina at rest I20.8 Active 035667931 Problem Claudication of both lower extremities I73.9 Active 75713627 Problem Sinusitis chronic, frontal J32.1 Active 58473437 Problem 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 Active 584723618 ALLERGIES No Information ENCOUNTERS Encounter Location Date Diagnosis [facility] [place] [id number] [address]- 8357 Jan, [facility] [place] [id number] [address]- 5228 Dec, [facility] [place] [id number] [address]- 3210 Dec, [place] [address] [place] [address] 80135- 8763 Nov, [place] [id number] [place] [address] 59572- 2992 Nov, Chronic insomnia F51.04 ; Non-healing skin lesion of nose L98.9 ; BPPV (benign paroxysmal positional vertigo), left H81.12 ; Constipation K59.00 and 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 [place] [id number] [place] [address] 99442- 0236 Nov, Arthritis M19.90 and Anxiety F41.9 [place] [id number] [place] [address] 06211- 2318 Nov, Generalized anxiety disorder F41.1 and Mild episode of recurrent major depressive disorder F33.0 [place] [id number] [place] [address] 86236- 6553 Nov, Spondylitis, cervical M46.92 [place] [id number] [place] [address] 72069- 6048 Oct, [place] [id number] [place] [address] 40866- 5258 Oct, Basal cell carcinoma of nose C44.311 [place] [id number] [place] [address] 44944- 4673 Oct, Spondylitis, cervical M46.92 and Anxiety F41.9 [place] [id number] [place] [address] 02088- 8360 Oct, Generalized anxiety disorder F41.1 and Mild episode of recurrent major depressive disorder F33.0 [place] [id number] [place] [address] 15632- 5060 Oct, [place] [id number] [place] [address] 44329- 9231 Oct, Spondylitis, cervical M46.92 [facility] [place] [id number] [place] [address] 19156- 2802 Oct, [facility] [place] [id number] [place] [address] 38641- 1200 Sep, Basal cell carcinoma of nose C44.311 [facility] [place] [id number] [place] [address] 86558- 2904 Sep, Generalized anxiety disorder F41.1 and Mild episode of recurrent major depressive disorder F33.0 [facility] [place] [id number] [place] [address] 90044- 7850 Sep, Spondylitis, cervical M46.92 and Anxiety F41.9 [place] [id number] [place] [address] 11027- 3269 Sep, [facility] [place] [id number] [place] [address] 39090- 3536 Aug, [facility] [place] [id number] [place] [address] 66021- 7531 Aug, Lesion of nose J34.89 [place] [id number] [place] [address] 11175- 4115 Aug, Spondylitis, cervical M46.92 ; Fibromyalgia M79.7 and 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 [place] [id number] [place] [address] 00809- 7672 Aug, Fibromyalgia M79.7 [facility] [place] [id number] [place] [address] 99495- 7283 Aug, Fibromyalgia M79.7 [facility] [place] [id number] [place] [address] 39326- 4881 Aug, [facility] [place] [id number] [place] [address] 40706- 0176 July, [facility] [place] [id number] [place] [address] 21039- 2618 July, [place] [address] [address]- 4848 July, Arthritis M19.90 [facility] [place] [id number] [place] [address] 17697- 9217 July, Inflammatory arthritis M19.90 [facility] [place] [address] [place] [address] 08082- 2569 Jun, Inflammatory arthritis M19.90 [facility] [place] [id number] [place] [address] 48372- 3491 Jun, Arthritis M19.90 [place] [id number] [place] [address] 08502- 6713 May, 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 ; Rheumatoid arthritis of left hip without organ or system involvement with positive rheumatoid factor M05.752 ; Chest pain, unspecified type R07.9 and Needs smoking cessation education F17.200 [place] [address] [address]- 0006 May, [place] [id number] [place] [address] 78670- 7804 May, Arthritis M19.90 [place] [address] [place] [address] 74741- 7770 May, Chest pain, unspecified type R07.9 ; Dyspnea on exertion R06.09 ; Claudication of both lower extremities I73.9 ; Hypertension, unspecified type I10 and Tobacco use Z72.0 [place] [address] [address]- 6402 Apr, Arthritis M19.90 [place] [id number] [place] [address] 55744- 0772 Apr, Arthritis M19.90 [place] [address] [address]- 9544 Apr, Sinusitis chronic, frontal J32.1 ; Coronary artery disease involving still[place] coronary artery of still[place] heart with unstable angina pectoris I25.110 ; Arthritis M19.90 and Fibromyalgia M79.7 [facility] [place] [id number] [place] [address] 85440- 4547 09 Apr, 2017 Sinusitis chronic, frontal J32.1 ; Coronary artery disease involving [place] coronary artery of still[place] heart with unstable angina pectoris I25.110 ; Arthritis M19.90 and Fibromyalgia M79.7 [facility] [place] [id number] [place] [address] 97954- 5701 Mar, [facility] [place] [id number] [place] [address] 64910- 0366 Mar, Arthritis M19.90 [facility] [place] [id number] [place] [address] 46195- 0787 Mar, Angina at rest I20.8 [facility] [place] [address] 04945- 2229 Mar, Arthritis M19.90 [facility] [place] [id number] [place] [address] 20290- 3656 Mar, [facility] [place] [id number] [place] [address] 79746- 9063 Feb, [facility] [place] [id number] [place] [address] 57085- 2783 Feb, [facility] [place] [id number] [place] [address] 61840- 3419 Feb, Arthritis M19.90 [facility] [id number] [place] [address] 54845 -6535 Feb, Left foot pain M79.672 and Acute left ankle pain M25.572 [facility] [place] [id number] [place] [address] 43279- 2001 Jan, [facility] [id number] [place] [address] 51735 -0379 Jan, Arthritis M19.90 ; Spondylitis, cervical M46.92 ; Fibromyalgia M79.7 and Family history of hypothyroidism Z83.49 [place] [id number] [place] [address] 10444- 4080 Sep, Dental caries K02.9 [place] [id number] [place] [address] 16286- 1895 Aug, Dental examination Z01.20 [place] [address] 29446- 3214 Apr, Dental examination Z01.20 and Dental caries K02.9 [place] [id number] [place] [address] 47379- 7711 Apr, Dental caries K02.9 [place] [id number] [place] [address] 48165- 6553 Apr, Dental examination Z01.20 IMMUNIZATIONS No Known Immunizations SOCIAL HISTORY Never Assessed REASON FOR VISIT Reschedule Appt PLAN OF CARE VITAL SIGNS MEDICATIONS Unknown [...]
--- OUTSIDE RECORDS SUMMARY | 2018-07-28 09:24 | XMS REPORT ---
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 Active 279318578 Problem Claudication of both lower extremities I73.9 Active 05514138 Problem Generalized anxiety disorder F41.1 Active 77677502 Problem Mild episode of recurrent major depressive disorder F33.0 Active 017986896 Problem Inflammatory arthritis M19.90 Active 3420128 Problem Needs smoking cessation education F17.200 Active 073954719 Problem Anxiety F41.9 Active 65262921 Problem Basal cell carcinoma of nose C44.311 Active 130163434 Problem Arthritis M19.90 Active 2947538 Problem Angina at rest I20.8 Active 310312404 Problem Spondylitis, cervical M46.92 Active 115648597 Problem Sinusitis chronic, frontal J32.1 Active 35113930 Problem Fibromyalgia M79.7 Active 673439407 Problem Coronary artery disease involving nisqually coronary artery of nisqually heart with unstable angina pectoris I25.110 Active [id number] ALLERGIES No Information ENCOUNTERS Encounter Location Date Diagnosis [facility], [place] [id number] [address] Jan, [facility], [place] [id number] [place] [address] 51942- 5333 Dec, [facility], [place] [address] [address] 6[address] Nov, [facility], [place] [id number] [address] 1580 Nov, [facility], [place] [id number] [place] [address] 33377- 6222 Nov, Arthritis M19.90 and Anxiety F41.9 [facility], [place] [id number] [place] [address] 31243 2546 Nov, Generalized anxiety disorder F41.1 and Mild episode of recurrent major depressive disorder F33.0 [facility], [place] [id number] [place] [address] 39026- 8784 Nov, Spondylitis, cervical M46.92 [facility], [place] [id number] [place] [address] 72800- 8982 Oct, [facility], [place] [id number] [place] [address] 06887- 3283 Oct, Basal cell carcinoma of nose C44.311 [facility] [place] [id number] [place] [address] 83655- 9068 Oct, Spondylitis, cervical M46.92 and Anxiety F41.9 [facility], [place] [address] [place] [address] 50048- 9014 Oct, Generalized anxiety disorder F41.1 and Mild episode of recurrent major depressive disorder F33.0 [facility], [place] [address] [place] [address] 33380- 4322 Oct, [facility], [place] [address] [place] [address] 71354- 1078 Oct, Spondylitis, cervical M46.92 [facility], [place] [address] [place] [address] 37180- 2220 Oct, [facility] [place] [id number] [place] [address] 93798- 6469 Sep, Basal cell carcinoma of nose C44.311 [facility], [place] [address] [place] [address] 90116- 6362 Sep, Generalized anxiety disorder F41.1 and Mild episode of recurrent major depressive disorder F33.0 [facility] [place] [id number] [place] [address] 60360- 6929 10 Sep, 2017 Spondylitis, cervical M46.92 and Anxiety F41.9 [facility], [place] [id number] [place] [address] 41108 2546 Sep, [facility] [place] [id number] [place] [address] 07630- 0002 Aug, [facility], [place] [id number] [place] [address] 62840- 9253 Aug, Lesion of nose J34.89 [facility], [place] [id number] [place] [address] 68353- 6126 Aug, Spondylitis, cervical M46.92 ; Fibromyalgia M79.7 and 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 [facility], [place] [id number] [place] [address] 58362- 1878 Aug, Fibromyalgia M79.7 [facility], [place] [id number] [place] [address] 39654- 5860 Aug, Fibromyalgia M79.7 [facility] [place] [id number] [place] [address] 15247- 7746 Aug, [facility] [place] [id number] [place] [address] 57846- 7152 July, [facility] [place] [id number] [place] [address] 96351- 9404 July, [facility] [place] [address] [place] [address] 38339- 0483 July, Arthritis M19.90 [facility], [place] [id number] [place] [address] 76496- 7106 July, Inflammatory arthritis M19.90 [facility], [place] [address] [place] [address] 62791- 9782 Jun, Inflammatory arthritis M19.90 [facility], [place] [address] [address] 4[address] Jun, Arthritis M19.90 [place] [id number] [place] [address] 28364- 5700 28 May, 2017 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 ; Rheumatoid arthritis of left hip without organ or system involvement with positive rheumatoid factor M05.752 ; Chest pain, unspecified type R07.9 and Needs smoking cessation education F17.200 [place] [id number] [place] [address] 57731- 6290 May, [place] [id number] [place] [address] 53213- 0516 May, Arthritis M19.90 [place] [id number] [place] [address] 23324- 9738 14 May, 2017 Chest pain, unspecified type R07.9 ; Dyspnea on exertion R06.09 ; Claudication of both lower extremities I73.9 ; Hypertension, unspecified type I10 and Tobacco use Z72.0 [place] [id number] [place] [address] 23164- 8286 Apr, Arthritis M19.90 [place] [id number] [place] [address] 29246- 7857 Apr, Arthritis M19.90 [place] [id number] [place] [address] 34719- 6906 12 Apr, 2017 Sinusitis chronic, frontal J32.1 ; Coronary artery disease involving nisqually coronary artery of nisqually heart with unstable angina pectoris I25.110 ; Arthritis M19.90 and Fibromyalgia M79.7 [place] [id number] [place] [address] 48774- 9356 09 Apr, 2017 Sinusitis chronic, frontal J32.1 ; Coronary artery disease involving nisqually coronary artery of nisqually heart with unstable angina pectoris I25.110 ; Arthritis M19.90 and Fibromyalgia M79.7 [place] [id number] [place] [address] 66720- 1751 Mar, [facility], [place] [id number] [place] [address] 56475- 9887 Mar, Arthritis M19.90 [facility], [place] [id number] [place] [address] 90552- 6621 Mar, Angina at rest I20.8 [facility], [place] [address] [address]90- 3413 Mar, Arthritis M19.90 [facility], [place] [address] 37873- 6283 Mar, [facility], [place] [address] 77865- 5773 Feb, [facility], [place] [address] 39781- 1650 Feb, [facility], [place] [address] 16164- 6336 Feb, Arthritis M19.90 [facility] [address] 26776 -5641 Feb, Left foot pain M79.672 and Acute left ankle pain M25.572 [place] [address] 17468- 1504 Jan, [facility] [id number] [place] [address] 45797 -4773 Jan, Arthritis M19.90 ; Spondylitis, cervical M46.92 ; Fibromyalgia M79.7 and Family history of hypothyroidism Z83.49 [place] [address] 19492- 9941 Sep, Dental caries K02.9 [place] [address] 90547- 9554 Aug, Dental examination Z01.20 [place] [address] 24663- 8462 Apr, Dental examination Z01.20 and Dental caries K02.9 [facility], [place] [address] [facility] [id number] [address] 1857 16 Apr, 2015 Dental caries K02.9 [facility], [place] [address] [facility] [id number] [place] [address]- 3560 08 Apr, 2015 Dental examination Z01.20 IMMUNIZATIONS [...]
--- OUTSIDE RECORDS SUMMARY | 2018-07-28 09:24 | XMS REPORT ---
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 Active 530894221 Problem Claudication of both lower extremities I73.9 Active 46642868 Problem Generalized anxiety disorder F41.1 Active 74204025 Problem Mild episode of recurrent major depressive disorder F33.0 Active 128801832 Problem Inflammatory arthritis M19.90 Active 1228669 Problem Needs smoking cessation education F17.200 Active 137453245 Problem Anxiety F41.9 Active 32248935 Problem Basal cell carcinoma of nose C44.311 Active 647416732 Problem Arthritis M19.90 Active 6862069 Problem Angina at rest I20.8 Active 351072319 Problem Spondylitis, cervical M46.92 Active 645943899 Problem Sinusitis chronic, frontal J32.1 Active 22856387 Problem Fibromyalgia M79.7 Active 259647261 Problem 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 Active [id number] ALLERGIES Substance Reaction Event Type Date Status Remeron nightmares Drug Allergy Oct, Active ENCOUNTERS Encounter Location Date Diagnosis [facility] [address] [facility] [id number] [address]29 Jan, [facility] [address] [id number] 6773 Dec, [facility] [address] [facility] [id number] [address]05 Nov, [facility] [id number] [place] [address] 11289- 3718 Nov, [facility] [id number] [place] [address] 02867- 2688 Nov, Arthritis M19.90 and Anxiety F41.9 [facility] [id number] [place] [address] 65045- 0807 Nov, Generalized anxiety disorder F41.1 and Mild episode of recurrent major depressive disorder F33.0 [facility] [id number] [place] [address] 17112- 3605 Nov, Spondylitis, cervical M46.92 [facility] [id number] [place] [address] 85128- 6450 Oct, [facility] [id number] [place] [address] 08652- 3937 Oct, Basal cell carcinoma of nose C44.311 [facility] [id number] [place] [address] 24934- 7428 Oct, Spondylitis, cervical M46.92 and Anxiety F41.9 [facility] [id number] [place] [address] 83555- 1040 Oct, Generalized anxiety disorder F41.1 and Mild episode of recurrent major depressive disorder F33.0 [facility] [id number] [place] [address] 57226- 5141 Oct, [facility] [id number] [place] [address] 33988- 1491 Oct, Spondylitis, cervical M46.92 [facility] [id number] [place] [address] 49143- 3876 Oct, [facility] [id number] [place] [address] 16194- 1916 Sep, Basal cell carcinoma of nose C44.311 [facility] [id number] [place] [address] 20236- 4378 Sep, Generalized anxiety disorder F41.1 and Mild episode of recurrent major depressive disorder F33.0 [facility] [id number] [place] [address] 85806- 4601 Sep, Spondylitis, cervical M46.92 and Anxiety F41.9 [facility] [id number] [place] [address] 62163- 7178 Sep, [facility] [id number] [place] [address] 56305- 4146 Aug, [facility] [id number] [place] [address] 50881- 1091 Aug, Lesion of nose J34.89 [facility] [id number] [place] [address] 81998- 2201 Aug, Spondylitis, cervical M46.92 ; Fibromyalgia M79.7 and 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 [facility] [id number] [place] [address] 15982- 1805 Aug, Fibromyalgia M79.7 [facility] [id number] [place] [address] 54747- 0946 Aug, Fibromyalgia M79.7 [facility] [id number] [place] [address] 30688- 1044 Aug, [facility] [id number] [place] [address] 00987- 4920 July, [facility] [id number] [place] [address] 67525- 1397 July, [facility] [address] [place] [address] 54707- 7766 July, Arthritis M19.90 [facility] [id number] [place] [address] 77516- 2218 July, Inflammatory arthritis M19.90 [facility] [id number] [place] [address] 84247- 1362 Jun, Inflammatory arthritis M19.90 [place] [id number] [place] [address] 93530- 9811 Jun, Arthritis M19.90 [place] [id number] [place] [address] 76902- 1217 28 May, 2017 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 ; Rheumatoid arthritis of left hip without organ or system involvement with positive rheumatoid factor M05.752 ; Chest pain, unspecified type R07.9 and Needs smoking cessation education F17.200 [place] [id number] [place] [address] 40962- 9628 May, [place] [id number] [place] [address] 29808- 2492 May, Arthritis M19.90 [place] [id number] [place] [address] 20545- 1507 14 May, 2017 Chest pain, unspecified type R07.9 ; Dyspnea on exertion R06.09 ; Claudication of both lower extremities I73.9 ; Hypertension, unspecified type I10 and Tobacco use Z72.0 [place] [id number] [place] [address] 42032- 9301 Apr, Arthritis M19.90 [place] [id number] [place] [address] 95253- 5360 Apr, Arthritis M19.90 [place] [id number] [place] [address] 85704- 2913 Apr, Sinusitis chronic, frontal J32.1 ; 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 ; Arthritis M19.90 and Fibromyalgia M79.7 [place] [address] [place] [address] 63614- 7262 09 Apr, 2017 Sinusitis chronic, frontal J32.1 ; 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 ; Arthritis M19.90 and Fibromyalgia M79.7 [facility] [id number] [place] [address] 68256- 7289 Mar, [facility] [address] 58110- 2747 Mar, Arthritis M19.90 [facility] [id number] [place] [address] 10819- 0305 Mar, Angina at rest I20.8 [place] [address] 20296- 1341 Mar, Arthritis M19.90 [place] [address] 95415- 8567 Mar, [facility] [address] 72368- 7203 Feb, [place] [address] 03780- 1997 Feb, [place] [address] 67321- 8990 Feb, Arthritis M19.90 [facility] [address] 32116 -6261 Feb, Left foot pain M79.672 and Acute left ankle pain M25.572 [place] [id number] [place] [address] 64400- 9182 Jan, [facility] [address] 09280 -6958 Jan, Arthritis M19.90 ; Spondylitis, cervical M46.92 ; Fibromyalgia M79.7 and Family history of hypothyroidism Z83.49 [place] [address] 70013- 9682 Sep, Dental caries K02.9 [place] [address] 16716- 5090 Aug, Dental examination Z01.20 [facility] [address] [facility] [id number] [address]- 8769 Apr, Dental examination Z01.20 and Dental caries K02.9 [place] [address] [facility] [id number] [address]- 4610 Apr, Dental caries K02.9 [place] [address] [facility] [id number], [place] [address]- 7342 Apr, Dental examination Z01.20 IMMUNIZATIONS No Known Immunizations SOCIAL HISTORY Never Assessed REASON FOR VISIT f/u Ina PLAN OF CARE Activity Details Follow Up 4 Weeks Reason: Follow-up VITAL SIGNS Height 59.5 in 2017-10-23 Weight 104.3 lbs 2017-10-23 Heart Rate 72 bpm 2017-10-23 Respiratory Rate 18 2017-10-23 BMI 20.71 kg/m2 2017-10-23 Blood pressure systolic 120 mmHg 2017-10-23 Blood pressure diastolic 68 mmHg 2017-10-23 MEDICATIONS Medication Instructions Dosage Frequency Start Date End Date Duration Status Oxycodone HCl 10 mg Orally 4 times a day 1 tablet 6h Oct, 28 days Active Oxygen 2 L by inhalation route at bedtime Active DuoNeb by inhalation route 4 times a day 6h Active MS Contin 15 mg Orally every 12 hrs 1 tablet 12h Oct, 28 days Active Amitriptyline HCl 10 mg Orally Once a day at bedtime 1 tablet Oct, 30 day(s) Active Melatonin 3 MG Orally at bedtime 2 Oct, 30 day(s) Active Claritin 10 MG Orally Once a day 1 tablet 24h Active Cymbalta 60 mg Orally Once a day 2 capsule 24h Active Xanax 0.5 MG Orally Twice a day as needed 1 tablet Sep, Active Nitroglycerin 0.4 MG Sublingual prn chest pain. at onset. may repeat q5min, if 3 doses taken, need to report to er. 1 tablet Not-Taking Aspirin Childrens 81 MG Orally Once a day 1 tablet 24h Active Trelegy Ellipta by inhalation route Once a day 1 puff 24h Active Nebulizer Active Meloxicam 15 mg Orally Once a day 1 tablet 24h Aug, 90 days Active Atorvastatin Calcium 20 MG Orally Once [...]
--- OUTSIDE RECORDS SUMMARY | 2018-07-28 09:24 | XMS REPORT ---
Author Author PARISH HOLMAN Organization [facility] Address [address] 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 Active 049531286 Problem Claudication of both lower extremities I73.9 Active 49807448 Problem Generalized anxiety disorder F41.1 Active 52911046 Problem Mild episode of recurrent major depressive disorder F33.0 Active 043632668 Problem Inflammatory arthritis M19.90 Active 1136077 Problem Needs smoking cessation education F17.200 Active 450604539 Problem Anxiety F41.9 Active 60603632 Problem Basal cell carcinoma of nose C44.311 Active 393122421 Problem Arthritis M19.90 Active 3284001 Problem Angina at rest I20.8 Active 583011969 Problem Spondylitis, cervical M46.92 Active 414747846 Problem Sinusitis chronic, frontal J32.1 Active 58307009 Problem Fibromyalgia M79.7 Active 968430554 Problem Coronary artery disease involving takotna coronary artery of takotna heart with unstable angina pectoris I25.110 Active [id number] ALLERGIES No Information ENCOUNTERS Encounter Location Date Diagnosis [facility] [id number] [address] Jan, [facility] [id number] [address] Dec, [facility] [id number] [address] Nov, [facility] [id number] [address] Nov, [facility] [address] [address] 10 Nov, 2017 Arthritis M19.90 and Anxiety F41.9 [facility] [id number] [place] [address] 91484- 6446 Nov, Generalized anxiety disorder F41.1 and Mild episode of recurrent major depressive disorder F33.0 [facility] [address] [place] [address] 63415- 4136 Nov, Spondylitis, cervical M46.92 [facility] [id number] [place] [address] 82773- 0074 Oct, [facility] [id number] [place] [address] 69622- 9900 Oct, Basal cell carcinoma of nose C44.311 [facility] [id number] [place] [address] 76689- 8382 Oct, Spondylitis, cervical M46.92 and Anxiety F41.9 [facility] [id number] [place] [address] 66002- 2350 Oct, Generalized anxiety disorder F41.1 and Mild episode of recurrent major depressive disorder F33.0 [facility] [address] [address] Oct, [facility] [id number] [place] [address] 79154- 7594 Oct, Spondylitis, cervical M46.92 [facility] [address] [address] Oct, [facility] [address] [place] [address] 40062- 1056 Sep, Basal cell carcinoma of nose C44.311 [facility] [address] [place] [address] 59426- 6589 Sep, Generalized anxiety disorder F41.1 and Mild episode of recurrent major depressive disorder F33.0 [facility] [id number] [place] [address] 42719- 5897 Sep, Spondylitis, cervical M46.92 and Anxiety F41.9 [facility] [id number] [place] [address] 67217- 5898 Sep, [facility] [id number] [place] [address] 90691- 2043 Aug, [facility] [id number] [place] [address] 35347- 4120 Aug, Lesion of nose J34.89 [facility] [id number] [place] [address] 51456- 8103 Aug, Spondylitis, cervical M46.92 ; Fibromyalgia M79.7 and 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 [facility] [id number] [place] [address] 34128- 3902 Aug, Fibromyalgia M79.7 [facility] [id number] [place] [address] 03976- 1832 Aug, Fibromyalgia M79.7 [facility] [id number] [place] [address] 07239- 5395 Aug, [facility] [id number] [place] [address] 43399- 7830 July, [facility] [id number] [place] [address] 44767- 1296 July, [facility] [id number] [place] [address] 95457- 4436 July, Arthritis M19.90 [facility] [id number] [place] [address] 15795- 1787 July, Inflammatory arthritis M19.90 [facility] [id number] [place] [address] 22334- 3001 Jun, Inflammatory arthritis M19.90 [facility] [id number] [place] [address] 83079- 4815 Jun, Arthritis M19.90 [place] [id number] [place] [address] 47688- 1118 28 May, 2017 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 ; Rheumatoid arthritis of left hip without organ or system involvement with positive rheumatoid factor M05.752 ; Chest pain, unspecified type R07.9 and Needs smoking cessation education F17.200 [address] [address]- 59[address] May, [place] [address] 92537- 7316 May, Arthritis M19.90 [place] [id number] [place] [address] 34212- 0322 14 May, 2017 Chest pain, unspecified type R07.9 ; Dyspnea on exertion R06.09 ; Claudication of both lower extremities I73.9 ; Hypertension, unspecified type I10 and Tobacco use Z72.0 [place] [id number] [place] [address] 44254- 6103 Apr, Arthritis M19.90 [place] [id number] [place] [address] 37768- 9677 16 Apr, 2017 Arthritis M19.90 [place] [id number] [place] [address] 46610- 8610 Apr, Sinusitis chronic, frontal J32.1 ; Coronary artery disease involving takotna coronary artery of takotna heart with unstable angina pectoris I25.110 ; Arthritis M19.90 and Fibromyalgia M79.7 [place] [id number] [place] [address] 46149- 3211 09 Apr, 2017 Sinusitis chronic, frontal J32.1 ; Coronary artery disease involving takotna coronary artery of takotna heart with unstable angina pectoris I25.110 ; Arthritis M19.90 and Fibromyalgia M79.7 [place] [id number] [place] [address] 81447- 2210 Mar, [facility] [id number] [place] [address] 18537- 2031 Mar, Arthritis M19.90 [facility] [id number] [place] [address] 05830- 7730 Mar, Angina at rest I20.8 [facility] [address] 02334- 7143 Mar, Arthritis M19.90 [facility] [id number] [place] [address] 64012- 0775 Mar, [facility] [address] 81983- 6951 Feb, [facility] [id number] [place] [address] 44952- 1385 Feb, [facility] [address] 07338- 0472 Feb, Arthritis M19.90 [facility] [id number] [place] [address] 51974 -1152 Feb, Left foot pain M79.672 and Acute left ankle pain M25.572 [place] [id number] [place] [address] 44195- 6469 Jan, [facility] [id number] [place] [address] 73677 -1036 Jan, Arthritis M19.90 ; Spondylitis, cervical M46.92 ; Fibromyalgia M79.7 and Family history of hypothyroidism Z83.49 [place] [id number] [place] [address] 85309- 1160 Sep, Dental caries K02.9 [place] [id number] [place] [address] 46943- 8692 Aug, Dental examination Z01.20 [place] [address] 01502- 5700 Apr, Dental examination Z01.20 and Dental caries K02.9 [facility] [address] [facility] [id number] [place] [address]- 7424 Apr, Dental caries K02.9 [facility] [address] [facility] [id number] [place] [address]- 5881 08 Apr, 2015 Dental examination Z01.20 IMMUNIZATIONS No Known Immunizations SOCIAL HISTORY Never Assessed REASON FOR VISIT Controlled Med Refill 10/21/17 PLAN OF CARE VITAL SIGNS MEDICATIONS Medication Instructions Dosage Frequency Start Date End Date Duration Status MS Contin 15 mg Orally every 12 hrs 1 tablet 12h Oct, 28 days Active Oxycodone HCl 10 mg Orally 4 times a day 1 tablet 6h Oct, 28 days Active RESULTS No Results PROCEDURES [...]
--- OUTSIDE RECORDS SUMMARY | 2018-07-28 09:24 | XMS REPORT ---
Author Author JOSS ABRAMS Organization [facility] Address [address] [place] [address] Care Team Providers Care Calculation Reviewer Name Role Phone ALIZA JOSS Unavailable PROBLEMS Type Condition ICD9-CM Code JSX46-VK Code Onset Dates Condition Status SNOMED Code Problem Needs smoking cessation education F17.200 Active 132401823 Problem Basal cell carcinoma of nose C44.311 Active 826528126 Problem Inflammatory arthritis M19.90 Active 0672834 Problem Constipation K59.00 Active 69551987 Problem Chronic insomnia F51.04 Active 043067584 Problem Generalized anxiety disorder F41.1 Active 40694088 Problem Anxiety F41.9 Active 20876379 Problem 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 Active 5449156126139169 Problem Mild episode of recurrent major depressive disorder F33.0 Active 365026608 Problem Fibromyalgia M79.7 Active 589073661 Problem Arthritis M19.90 Active 7170893 Problem Spondylitis, cervical M46.92 Active 363693987 Problem Coronary artery disease involving tuscarora coronary artery of tuscarora heart with unstable angina pectoris I25.110 Active 7577826323733 Problem Hypertension, unspecified type I10 Active 29469668 Problem Angina at rest I20.8 Active 034406626 Problem Claudication of both lower extremities I73.9 Active 24484154 Problem Sinusitis chronic, frontal J32.1 Active 29790314 Problem 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 Active 674491982 ALLERGIES Substance Reaction Event Type Date Status Remeron nightmares Drug Allergy Oct, Active ENCOUNTERS Encounter Location Date Diagnosis [facility] [address] [facility] [id number] [address] Jan, [facility] [address] [facility] [id number], [place] [address]- 6859 Dec, [facility] [id number] [place] [address] 76294- 0251 04 Dec, 2017 [facility] [id number] [place] [address] 22397- 5394 Nov, [facility] [id number] [place] [address] 44080- 9209 Nov, Chronic insomnia F51.04 ; Non-healing skin lesion of nose L98.9 ; BPPV (benign paroxysmal positional vertigo), left H81.12 ; Constipation K59.00 and 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 [facility] [id number] [place] [address] 26259- 5627 Nov, Arthritis M19.90 and Anxiety F41.9 [place] [id number] [place] [address] 53640- 6580 Nov, Generalized anxiety disorder F41.1 and Mild episode of recurrent major depressive disorder F33.0 [facility] [id number] [place] [address] 65422- 4220 Nov, Spondylitis, cervical M46.92 [facility] [id number] [place] [address] 90638- 9814 Oct, [facility] [id number] [place] [address] 37546- 8581 Oct, Basal cell carcinoma of nose C44.311 [facility] [id number] [place] [address] 04715- 2604 Oct, Spondylitis, cervical M46.92 and Anxiety F41.9 [facility] [id number] [place] [address] 59808- 6712 Oct, Generalized anxiety disorder F41.1 and Mild episode of recurrent major depressive disorder F33.0 [facility] [id number] [place] [address] 00077- 6390 Oct, [facility] [id number] [place] [address] 57206- 9233 Oct, Spondylitis, cervical M46.92 [facility] [id number] [place] [address] 26548- 1456 Oct, [facility] [id number] [place] [address] 72635- 6000 Sep, Basal cell carcinoma of nose C44.311 [facility] [id number] [place] [address] 24643- 5144 Sep, Generalized anxiety disorder F41.1 and Mild episode of recurrent major depressive disorder F33.0 [facility] [id number] [place] [address] 33095- 7566 Sep, Spondylitis, cervical M46.92 and Anxiety F41.9 [facility] [id number] [place] [address] 93379- 0856 Sep, [facility] [id number] [place] [address] 25531- 3116 Aug, [facility] [id number] [place] [address] 31909- 8088 Aug, Lesion of nose J34.89 [facility] [id number] [place] [address] 94775- 5151 Aug, Spondylitis, cervical M46.92 ; Fibromyalgia M79.7 and 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 [facility] [id number] [place] [address] 92227- 8392 Aug, Fibromyalgia M79.7 [facility] [id number] [place] [address] 15296- 0128 Aug, Fibromyalgia M79.7 [facility] [id number] [place] [address] 85070- 8630 Aug, [facility] [id number] [place] [address] 30479- 4584 July, [facility] [id number] [place] [address] 74339- 5969 July, [facility] [address], [place] [address]- 6533 July, Arthritis M19.90 [facility] [address], [place] [address]- 8354 July, Inflammatory arthritis M19.90 [facility] [address] [place] [address] 12199- 1958 Jun, Inflammatory arthritis M19.90 [facility] [address] [place] [address] 97944- 5846 Jun, Arthritis M19.90 [facility] [address] [place] [address] 47001- 8006 May, 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 ; Rheumatoid arthritis of left hip without organ or system involvement with positive rheumatoid factor M05.752 ; Chest pain, unspecified type R07.9 and Needs smoking cessation education F17.200 [facility] [address], [place] [address]- 1660 May, [facility] [address] [place] [address] 71612- 4052 May, Arthritis M19.90 [facility] [address], [place] [address]- 0730 May, Chest pain, unspecified type R07.9 ; Dyspnea on exertion R06.09 ; Claudication of both lower extremities I73.9 ; Hypertension, unspecified type I10 and Tobacco use Z72.0 [facility] [address], [place] [address]- 6887 Apr, Arthritis M19.90 [facility] [address], [place] [address]- 7516 Apr, Arthritis M19.90 [facility] [address] [place] [address] 56843- 5654 Apr, Sinusitis chronic, frontal J32.1 ; Coronary artery disease involving tuscarora coronary artery of tuscarora heart with unstable angina pectoris I25.110 ; Arthritis M19.90 and Fibromyalgia M79.7 [facility] [id number] [place] [address] 35854- 9222 09 Apr, 2017 Sinusitis chronic, frontal J32.1 ; Coronary artery disease involving tuscarora coronary artery of tuscarora heart with unstable angina pectoris I25.110 ; Arthritis M19.90 and Fibromyalgia M79.7 [facility] [id number] [place] [address] 87366- 2192 Mar, [facility] [id number] [place] [address] 03048- 7193 Mar, Arthritis M19.90 [facility] [id number] [place] [address] 90860- 9953 Mar, Angina at rest I20.8 [facility] [id number] [place] [address] 53654- 0780 Mar, Arthritis M19.90 [facility] [id number] [place] [address] 37729- 5159 Mar, [facility] [id number] [place] [address] 69339- 1893 Feb, [facility] [id number] [place] [address] 02387- 5119 Feb, [facility] [id number] [place] [address] 88919- 6954 Feb, Arthritis M19.90 [facility] [id number] [place] [address] 68783 -8842 Feb, Left foot pain M79.672 and Acute left ankle pain M25.572 [facility] [id number] [place] [address] 90095- 7428 Jan, [facility] [address] [place] [address] -8591 Jan, Arthritis M19.90 ; Spondylitis, cervical M46.92 ; Fibromyalgia M79.7 and Family history of hypothyroidism Z83.49 [place] [address] [place] [address] 94450- 2366 Sep, Dental caries K02.9 [place] [id number] [place] [address] 42737- 5347 Aug, Dental examination Z01.20 [place] [address] 66773- 9455 Apr, Dental examination Z01.20 and Dental caries K02.9 [place] [id number] [place] [address] 84134- 8190 Apr, Dental caries K02.9 [place] [id number] [place] [address] 84654- 9226 Apr, Dental examination Z01.20 IMMUNIZATIONS No Known Immunizations SOCIAL HISTORY Never Assessed REASON FOR VISIT Brayden, On her nose -Patricio Bobby PLAN OF CARE Activity Details Follow Up 4 Weeks Reason:lesion nose VITAL SIGNS Height 59.5 in 2017-11-04 Weight 104.2 lbs 2017-11-04 Temperature 98.4 degrees Fahrenheit 2017-11-04 Heart Rate 81 bpm 2017-11-04 Respiratory Rate 12 2017-11-04 Oximetry 96 % 2017-11-04 BMI 20.69 kg/m2 2017-11-04 Blood pressure systolic 128 mmHg 2017-11-04 Blood pressure diastolic 70 mmHg 2017-11-04 MEDICATIONS Medication Instructions Dosage Frequency Start Date End Date Duration Status DuoNeb by inhalation route 4 times a day 6h Active MS Contin 15 mg Orally every 12 hrs 1 tablet 12h Oct, 28 days Active Aspirin Childrens 81 MG Orally Once a day 1 tablet 24h Active Atorvastatin Calcium 20 MG Orally Once a day 1 tablet 24h Active Oxygen 2 L by inhalation route at bedtime Active Amitriptyline HCl 10 mg Orally Once a day at bedtime 1 tablet Oct, 30 day(s) Active Xanax 0.5 MG Orally Twice a day as needed 1 tablet Sep, Active Oxycodone HCl 10 mg Orally 4 times a day 1 tablet 6h Oct, 28 days Active Nitroglycerin 0.4 MG Sublingual prn chest pain. at onset. may repeat q5min, if 3 doses taken, need to report to er. 1 tablet Not-Taking Cymbalta 60 mg Orally Once a day 2 capsule 24h Active Meloxicam 15 mg Orally Once a day 1 tablet 24h Aug, 90 days Active Trelegy Ellipta by inhalation route Once a day 1 puff 24h Active Nebulizer Active Melatonin 3 MG Orally at bedtime [...]
[2018-07-28 09:25] VITALS: BP 120/71
--- OUTSIDE RECORDS SUMMARY | 2018-07-28 09:25 | XMS REPORT ---
Author Author PARISH HOLMAN Organization [facility] Address [address] 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 Active 963968296 Problem Claudication of both lower extremities I73.9 Active 64844494 Problem Generalized anxiety disorder F41.1 Active 87714198 Problem Mild episode of recurrent major depressive disorder F33.0 Active 046761176 Problem Inflammatory arthritis M19.90 Active 1877087 Problem Needs smoking cessation education F17.200 Active 046985772 Problem Anxiety F41.9 Active 36488216 Problem Basal cell carcinoma of nose C44.311 Active 614522858 Problem Arthritis M19.90 Active 8941386 Problem Angina at rest I20.8 Active 131106964 Problem Spondylitis, cervical M46.92 Active 757886057 Problem Sinusitis chronic, frontal J32.1 Active 69458513 Problem Fibromyalgia M79.7 Active 697218197 Problem 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 Active [id number] ALLERGIES No Information ENCOUNTERS Encounter Location Date Diagnosis [facility] [id number], [place] [address] Dec, [facility] [id number], [place] [address] Nov, [facility] [address], [place] [address] Nov, [facility] [id number], [place] [address] Nov, [place] [id number], [place] [address] Nov, [facility] [id number] [place] [address] 38985- 0030 Oct, [facility] [id number] [place] [address] 48478- 5295 Oct, Basal cell carcinoma of nose C44.311 [facility] [id number] [place] [address] 94432- 7284 Oct, Spondylitis, cervical M46.92 and Anxiety F41.9 [facility] [id number] [place] [address] 49209- 8008 Oct, Generalized anxiety disorder F41.1 and Mild episode of recurrent major depressive disorder F33.0 [facility] [id number] [place] [address] 20675- 3352 Oct, [facility] [id number] [place] [address] 20347- 2646 Oct, Spondylitis, cervical M46.92 [facility] [id number] [place] [address] 99853- 4215 Oct, [facility] [id number] [place] [address] 29550- 5802 Sep, Basal cell carcinoma of nose C44.311 [facility] [address] [place] [address] 84693- 9551 Sep, Generalized anxiety disorder F41.1 and Mild episode of recurrent major depressive disorder F33.0 [facility] [address] [place] [address] 01355- 8385 Sep, Spondylitis, cervical M46.92 and Anxiety F41.9 [facility] [address], [place] [address] 6[address] Sep, [facility] [id number] [place] [address] 75568- 7056 Aug, [facility] [address], [place] [address] Aug, Lesion of nose J34.89 [facility] [id number] [place] [address] 44719- 8672 Aug, Spondylitis, cervical M46.92 ; Fibromyalgia M79.7 and 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 [facility] [id number] [place] [address] 67250- 5722 Aug, Fibromyalgia M79.7 [facility] [id number] [place] [address] 17501- 7020 Aug, Fibromyalgia M79.7 [facility] [id number] [place] [address] 46918- 6698 Aug, [facility] [id number] [place] [address] 44528- 0614 July, [facility] [id number] [place] [address] 66252- 7458 July, [facility] [id number] [place] [address] 24675- 2612 July, Arthritis M19.90 [facility] [address] [place] [address] 21858- 6366 July, Inflammatory arthritis M19.90 [facility] [address] [place] [address] 59347- 3047 Jun, Inflammatory arthritis M19.90 [facility] [address], [place] [address] 88[address] Jun, Arthritis M19.90 [facility] [address] [place] [address] 38052- 0712 May, 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 ; Rheumatoid arthritis of left hip without organ or system involvement with positive rheumatoid factor M05.752 ; Chest pain, unspecified type R07.9 and Needs smoking cessation education F17.200 [facility] [id number] [place] [address] 25899- 4753 May, [place] [id number] [place] [address] 61863- 7550 May, Arthritis M19.90 [place] [id number] [place] [address] 88787- 9480 14 May, 2017 Chest pain, unspecified type R07.9 ; Dyspnea on exertion R06.09 ; Claudication of both lower extremities I73.9 ; Hypertension, unspecified type I10 and Tobacco use Z72.0 [place] [address] [address]25- 8146 21 Apr, 2017 Arthritis M19.90 [place] [id number] [place] [address] 82231- 0546 16 Apr, 2017 Arthritis M19.90 [place] [id number] [place] [address] 92290- 5713 12 Apr, 2017 Sinusitis chronic, frontal J32.1 ; 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 ; Arthritis M19.90 and Fibromyalgia M79.7 [place] [id number] [place] [address] 41116- 7265 09 Apr, 2017 Sinusitis chronic, frontal J32.1 ; 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 ; Arthritis M19.90 and Fibromyalgia M79.7 [place] [address] [place] [address] 11744- 4246 Mar, [place] [id number] [place] [address] 48243- 2555 Mar, Arthritis M19.90 [place] [id number] [place] [address] 64409- 6748 Mar, Angina at rest I20.8 [place] [address] [place] [address] 0525 Mar, Arthritis M19.90 [facility] [address] 38960- 0839 Mar, [facility] [id number] [place] [address] 13706- 6112 Feb, [facility] [address] 82922- 5969 Feb, [facility] [address] 53067- 7139 Feb, Arthritis M19.90 [facility] [address] [address]35 -7487 Feb, Left foot pain M79.672 and Acute left ankle pain M25.572 [place] [address] 41622- 0863 Jan, [facility] [id number] [place] [address] 48535 -6240 Jan, Arthritis M19.90 ; Spondylitis, cervical M46.92 ; Fibromyalgia M79.7 and Family history of hypothyroidism Z83.49 [place] [id number] [place] [address] 26418- 0783 Sep, Dental caries K02.9 [place] [id number] [place] [address] 16956- 4239 Aug, Dental examination Z01.20 [place] [id number] [place] [address] 73053- 3756 23 Apr, 2015 Dental examination Z01.20 and Dental caries K02.9 [place] [id number] [place] [address] 00701- 5587 16 Apr, 2015 Dental caries K02.9 [place] [id number] [place] [address] 32707- 2991 08 Apr, 2015 Dental examination Z01.20 IMMUNIZATIONS No Known Immunizations SOCIAL HISTORY Never Assessed REASON FOR VISIT Controlled Med Refill PLAN OF CARE VITAL SIGNS MEDICATIONS Unknown [...]
--- OUTSIDE RECORDS SUMMARY | 2018-07-28 09:25 | XMS REPORT ---
Author Author PARISH HOLMAN Organization [facility] Address [address] 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 Active 444500892 Problem Claudication of both lower extremities I73.9 Active 91016079 Problem Generalized anxiety disorder F41.1 Active 61525884 Problem Mild episode of recurrent major depressive disorder F33.0 Active 560981228 Problem Inflammatory arthritis M19.90 Active 9819155 Problem Needs smoking cessation education F17.200 Active 234789567 Problem Anxiety F41.9 Active 92937732 Problem Basal cell carcinoma of nose C44.311 Active 134020874 Problem Arthritis M19.90 Active 7737394 Problem Angina at rest I20.8 Active 140423546 Problem Spondylitis, cervical M46.92 Active 435142402 Problem Sinusitis chronic, frontal J32.1 Active 39463673 Problem Fibromyalgia M79.7 Active 609575191 Problem 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 Active 2208166153638 ALLERGIES No Known Allergies ENCOUNTERS Encounter Location Date Diagnosis [facility] [id number], [place] [address] Jan, [facility] [id number], [place] [address]- 2039 Dec, [facility] [id number], [place] [address]- 8892 Nov, [facility] [id number], [place] [address]- 8217 Nov, [place] [address], [place] [address]- 2412 Nov, Arthritis M19.90 and Anxiety F41.9 [facility] [id number] [place] [address] 44280- 4206 Nov, Generalized anxiety disorder F41.1 and Mild episode of recurrent major depressive disorder F33.0 [facility] [id number] [place] [address] 22962- 1481 Nov, Spondylitis, cervical M46.92 [facility] [id number] [place] [address] 96452- 3446 Oct, [facility] [id number] [place] [address] 58467- 0282 Oct, Basal cell carcinoma of nose C44.311 [facility] [id number] [place] [address] 75859- 9000 Oct, Spondylitis, cervical M46.92 and Anxiety F41.9 [facility] [address] [place] [address] 81748- 3505 Oct, Generalized anxiety disorder F41.1 and Mild episode of recurrent major depressive disorder F33.0 [facility] [address] [place] [address] 60126- 0010 Oct, [facility] [address] [place] [address] 95764- 2401 Oct, Spondylitis, cervical M46.92 [facility] [address], [place] [address]- 0077 Oct, [facility] [id number] [place] [address] 63494- 7546 Sep, Basal cell carcinoma of nose C44.311 [facility] [address], [place] [address]- 4646 Sep, Generalized anxiety disorder F41.1 and Mild episode of recurrent major depressive disorder F33.0 [facility] [id number], [place] [address]- 5368 10 Sep, 2017 Spondylitis, cervical M46.92 and Anxiety F41.9 [facility] [id number] [place] [address] 23903- 9393 Sep, [facility] [id number] [place] [address] 54487- 2248 Aug, [facility] [id number] [place] [address] 14231- 7718 Aug, Lesion of nose J34.89 [facility] [id number] [place] [address] 17455- 5506 Aug, Spondylitis, cervical M46.92 ; Fibromyalgia M79.7 and 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 [facility] [id number] [place] [address] 53300- 3883 Aug, Fibromyalgia M79.7 [facility] [id number] [place] [address] 94340- 4294 Aug, Fibromyalgia M79.7 [facility] [id number] [place] [address] 20552- 5642 Aug, [facility] [address] [place] [address] 56938- 4997 July, [facility] [address] [place] [address] 84627- 2589 July, [facility] [id number] [place] [address] 79051- 6686 July, Arthritis M19.90 [facility] [id number] [place] [address] 05117- 1219 July, Inflammatory arthritis M19.90 [facility] [address] [place] [address] 70157- 2766 Jun, Inflammatory arthritis M19.90 [facility] [id number] [place] [address] 43156- 8694 Jun, Arthritis M19.90 [place] [id number] [place] [address] 36023- 8649 28 May, 2017 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 ; Rheumatoid arthritis of left hip without organ or system involvement with positive rheumatoid factor M05.752 ; Chest pain, unspecified type R07.9 and Needs smoking cessation education F17.200 [place] [id number] [place] [address] 63106- 8210 27 May, 2017 [place] [id number] [place] [address] 80730- 4598 May, Arthritis M19.90 [place] [id number] [place] [address] 35050- 9975 14 May, 2017 Chest pain, unspecified type R07.9 ; Dyspnea on exertion R06.09 ; Claudication of both lower extremities I73.9 ; Hypertension, unspecified type I10 and Tobacco use Z72.0 [place] [id number] [place] [address] 67292- 9550 Apr, Arthritis M19.90 [place] [id number] [place] [address] 08238- 8184 16 Apr, 2017 Arthritis M19.90 [place] [id number] [place] [address] 78123- 1258 Apr, Sinusitis chronic, frontal J32.1 ; 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 ; Arthritis M19.90 and Fibromyalgia M79.7 [place] [id number] [place] [address] 83474- 4139 09 Apr, 2017 Sinusitis chronic, frontal J32.1 ; 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 ; Arthritis M19.90 and Fibromyalgia M79.7 [place] [id number] [place] [address] 53934- 6270 Mar, [facility] [id number] [place] [address] 11718- 4563 Mar, Arthritis M19.90 [facility] [id number] [place] [address] 25758- 1481 Mar, Angina at rest I20.8 [facility] [address] 04376- 4281 Mar, Arthritis M19.90 [facility] [address] 45274- 1836 Mar, [facility] [address] 74464- 1887 Feb, [facility] [address] 85456- 3694 Feb, [facility] [address] 91053- 8982 Feb, Arthritis M19.90 [facility] [id number] [place] [address] 79476 -6676 Feb, Left foot pain M79.672 and Acute left ankle pain M25.572 [place] [id number] [place] [address] 15034- 4829 Jan, [facility] [id number] [place] [address] 44909 -6521 Jan, Arthritis M19.90 ; Spondylitis, cervical M46.92 ; Fibromyalgia M79.7 and Family history of hypothyroidism Z83.49 [place] [address] 07417- 9840 Sep, Dental caries K02.9 [place] [id number] [place] [address] 21829- 7370 Aug, Dental examination Z01.20 [place] [address] 47789- 2226 23 Apr, 2015 Dental examination Z01.20 and Dental caries K02.9 [facility] [address] [facility] [id number] [place] [address]- 6165 16 Apr, 2015 Dental caries K02.9 [facility] [address] [facility] [id number] [place] [address]- 2847 08 Apr, 2015 Dental examination Z01.20 IMMUNIZATIONS No Known Immunizations SOCIAL HISTORY Never Assessed REASON FOR VISIT Pain Management F/U, PT states she doesn't see a difference with the new medications"mobic"-Phuong PEREZ PLAN OF CARE Activity Details Follow Up 4 Weeks Reason:discuss transition to BUP VITAL SIGNS Height 59.5 in 2017-09-23 Weight 103.5 lbs 2017-09-23 Temperature 98.3 degrees Fahrenheit 2017-09-23 Heart Rate 104 bpm 2017-09-23 Respiratory Rate 20 2017-09-23 BMI 20.55 kg/m2 2017-09-23 Blood pressure systolic 102 mmHg 2017-09-23 Blood pressure diastolic 72 mmHg 2017-09-23 MEDICATIONS Medication Instructions Dosage Frequency Start Date End Date Duration Status Atorvastatin Calcium 20 MG Orally Once a day 1 tablet 24h Active Nitroglycerin 0.4 MG Sublingual prn chest pain. at onset. may repeat q5min, if 3 doses taken, need to report to er. 1 tablet Not-Taking Cymbalta 30 MG Orally Once a day 1 capsule 24h Not-Taking Claritin 10 MG Orally Once a day 1 tablet 24h Active DuoNeb by inhalation route 4 times a day 6h Active Oxycodone HCl 10 mg Orally 4 times a day 1 tablet 6h Sep, 28 days Active MS Contin 15 mg Orally every 12 hrs 1 tablet 12h Sep, 28 days Active Cymbalta 60 mg Orally Once a day 2 capsule 24h Active Aspirin Childrens 81 MG Orally Once a day 1 tablet 24h Active Trelegy Ellipta by inhalation route Once a day 1 puff 24h Active Meloxicam 15 mg Orally Once a day 1 tablet 24h Aug, 90 days Active Nebulizer Active Xanax 1 MG by oral route 3 times a day 1 tablet 8h Active RESULTS No Results PROCEDURES No Known [...]
--- OUTSIDE RECORDS SUMMARY | 2018-07-28 09:25 | XMS REPORT ---
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 Active 195942469 Problem Claudication of both lower extremities I73.9 Active 32108981 Problem Generalized anxiety disorder F41.1 Active 22071422 Problem Mild episode of recurrent major depressive disorder F33.0 Active 304417202 Problem Inflammatory arthritis M19.90 Active 0434585 Problem Needs smoking cessation education F17.200 Active 539861162 Problem Anxiety F41.9 Active 76794393 Problem Basal cell carcinoma of nose C44.311 Active 295176438 Problem Arthritis M19.90 Active 9316772 Problem Angina at rest I20.8 Active 187233563 Problem Spondylitis, cervical M46.92 Active 342746297 Problem Sinusitis chronic, frontal J32.1 Active 76535025 Problem Fibromyalgia M79.7 Active 139897250 Problem Coronary artery disease involving [place] coronary artery of [place] heart with unstable angina pectoris I25.110 Active [id number] ALLERGIES No Known Allergies ENCOUNTERS Encounter Location Date Diagnosis [facility] [address] [facility] [place] [id number] [address] Dec, [facility] [id number] [place] [address] 86656- 5225 Nov, [facility] [address] [address] Nov, [facility] [id number] [address] 3220 Nov, [facility] [id number] [place] [address] 38828- 2771 Nov, [facility] [id number] [place] [address] 43195- 1138 Nov, Spondylitis, cervical M46.92 [facility] [id number] [place] [address] 89005- 8039 Oct, [facility] [id number] [place] [address] 64392- 4459 Oct, Basal cell carcinoma of nose C44.311 [facility] [id number] [place] [address] 36039- 9716 Oct, Spondylitis, cervical M46.92 and Anxiety F41.9 [facility] [id number] [place] [address] 56787- 2745 Oct, Generalized anxiety disorder F41.1 and Mild episode of recurrent major depressive disorder F33.0 [facility] [id number] [place] [address] 50227- 1962 Oct, [facility] [id number] [place] [address] 21100- 0956 Oct, Spondylitis, cervical M46.92 [facility] [id number] [place] [address] 47813- 4066 Oct, [facility] [id number] [place] [address] 10390- 6252 Sep, Basal cell carcinoma of nose C44.311 [facility] [id number] [place] [address] 54730- 7112 Sep, Generalized anxiety disorder F41.1 and Mild episode of recurrent major depressive disorder F33.0 [facility] [id number] [place] [address] 00830- 4058 Sep, Spondylitis, cervical M46.92 and Anxiety F41.9 [facility] [id number] [place] [address] 51868- 8696 Sep, [facility] [id number] [place] [address] 72503- 1751 Aug, [facility] [id number] [place] [address] 78409- 7828 Aug, Lesion of nose J34.89 [facility] [id number] [place] [address] 39589- 1882 Aug, Spondylitis, cervical M46.92 ; Fibromyalgia M79.7 and 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 [facility] [id number] [place] [address] 29925- 3846 Aug, Fibromyalgia M79.7 [facility] [id number] [place] [address] 45153- 9880 Aug, Fibromyalgia M79.7 [facility] [id number] [place] [address] 88547- 8050 Aug, [facility] [id number] [place] [address] 59986- 3402 July, [facility] [id number] [place] [address] 56934- 1259 July, [facility] [id number] [place] [address] 53178- 4729 July, Arthritis M19.90 [facility] [id number] [place] [address] 42210- 2426 July, Inflammatory arthritis M19.90 [facility] [id number] [place] [address] 73558- 0549 Jun, Inflammatory arthritis M19.90 [facility] [id number] [place] [address] 78647- 6316 Jun, Arthritis M19.90 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 [address] [place] [address] 85820- 6424 May, [place] [id number] [place] [address] 18919- 3701 May, Arthritis M19.90 [facility] [id number] [place] [address] 37589- 3255 14 May, 2017 Chest pain, unspecified type R07.9 ; Dyspnea on exertion R06.09 ; Claudication of both lower extremities I73.9 ; Hypertension, unspecified type I10 and Tobacco use Z72.0 [facility] [id number] [place] [address] 19123- 1294 Apr, Arthritis M19.90 [facility] [id number] [place] [address] 80962- 0245 16 Apr, 2017 Arthritis M19.90 [facility] [id number] [place] [address] 27885- 5158 12 Apr, 2017 Sinusitis chronic, frontal J32.1 ; Coronary artery disease involving [place] coronary artery of [place] heart with unstable angina pectoris I25.110 ; Arthritis M19.90 and Fibromyalgia M79.7 [place] [facility] [address] [place] [address] 11206- 8333 09 Apr, 2017 Sinusitis chronic, frontal J32.1 ; Coronary artery disease involving [place] coronary artery of [place] heart with unstable angina pectoris I25.110 ; Arthritis M19.90 and Fibromyalgia M79.7 [place] [facility] [id number] [place] [address] 82840- 2281 Mar, [place] [address] [place] [address] 76130- 8732 Mar, Arthritis M19.90 [facility] [id number] [place] [address] 48727- 6261 Mar, Angina at rest I20.8 [place] [facility] [address] 06908- 2657 Mar, Arthritis M19.90 [facility] [id number] [place] [address] 47457- 4292 Mar, [place] [facility] [address] 57451- 3315 Feb, [facility] [id number] [place] [address] 39469- 0553 Feb, [place] [address] 67805- 7985 Feb, Arthritis M19.90 [facility] [id number] [place] [address] 26327 -3170 Feb, Left foot pain M79.672 and Acute left ankle pain M25.572 [place] [id number] [place] [address] 72848- 9189 Jan, [facility] Formerly named [facility] [id number] [place] [address] 73123 -5785 Jan, Arthritis M19.90 ; Spondylitis, cervical M46.92 ; Fibromyalgia M79.7 and Family history of hypothyroidism Z83.49 [place] [id number] [place] [address] 94491- 9001 Sep, Dental caries K02.9 [place] [place] [id number] [place] [address] 57331- 2843 Aug, Dental examination Z01.20 [facility] [id number] [place] [address] 34826- 7846 Apr, Dental examination Z01.20 and Dental caries K02.9 [place] [id number] [place] [address] 52572- 5471 Apr, Dental caries K02.9 [facility] [address] [facility] [place] [id number] [address] 0331 Apr, Dental examination Z01.20 IMMUNIZATIONS No Known Immunizations SOCIAL HISTORY Never Assessed REASON FOR VISIT BH intake WB-MA PLAN OF CARE Activity Details Follow Up 4 Weeks Reason: f/u VITAL SIGNS Height 59.5 in 2017-09-25 Weight 106 lbs 2017-09-25 Heart Rate 72 bpm 2017-09-25 Respiratory Rate 20 2017-09-25 BMI 21.05 kg/m2 2017-09-25 Blood pressure systolic 122 mmHg 2017-09-25 Blood pressure diastolic 68 mmHg 2017-09-25 MEDICATIONS Medication Instructions Dosage Frequency Start Date End Date Duration Status Cymbalta 60 mg Orally Once a day 2 capsule 24h Active MS Contin 15 mg Orally every 12 hrs 1 tablet 12h Sep, 28 days Active Oxycodone HCl 10 mg Orally 4 times a day 1 tablet 6h Sep, 28 days Active Claritin 10 MG Orally Once a day 1 tablet 24h Active Trelegy Ellipta by inhalation route Once a day 1 puff 24h Active DuoNeb by inhalation route 4 times a day 6h Active Remeron 15 mg Orally Once a day at bedtime 1 tablet Sep, 30 day(s) Active Aspirin Childrens 81 MG Orally Once a day 1 tablet 24h Active Atorvastatin Calcium 20 MG Orally Once a day 1 tablet 24h Active Nitroglycerin 0.4 MG Sublingual prn chest pain. at onset. may repeat q5min, if 3 doses taken, need to report to er. 1 tablet Not-Taking Meloxicam 15 mg Orally Once a day 1 tablet 24h Aug, 90 days Active Xanax 0.5 MG Orally Twice a day as needed 1 tablet Sep, 30 days Active Nebulizer Active RESULTS No Results PROCEDURES No Known [...]
--- OUTSIDE RECORDS SUMMARY | 2018-07-28 09:25 | XMS REPORT ---
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 Active 696788680 Problem Claudication of both lower extremities I73.9 Active 00135463 Problem Generalized anxiety disorder F41.1 Active 96992557 Problem Mild episode of recurrent major depressive disorder F33.0 Active 718775449 Problem Inflammatory arthritis M19.90 Active 8836511 Problem Needs smoking cessation education F17.200 Active 300591415 Problem Anxiety F41.9 Active 43064931 Problem Basal cell carcinoma of nose C44.311 Active 032581828 Problem Arthritis M19.90 Active 9468179 Problem Angina at rest I20.8 Active 405355240 Problem Spondylitis, cervical M46.92 Active 690472938 Problem Sinusitis chronic, frontal J32.1 Active 32244482 Problem Fibromyalgia M79.7 Active 696139115 Problem Coronary artery disease involving [place] coronary artery of [place] heart with unstable angina pectoris I25.110 Active 8265023722144 ALLERGIES No Known Allergies ENCOUNTERS Encounter Location Date Diagnosis [facility] [id number], [place] [address] 0407 Jan, [facility] [address] [address]- 4194 Dec, [facility] [address], [place] [address]- 1559 Nov, [facility] [address], [place] [address]- 9384 Nov, [facility] [address] [id number] [address]- 7281 Nov, [facility] [id number] [place] [address] 07261- 4306 Nov, Generalized anxiety disorder F41.1 and Mild episode of recurrent major depressive disorder F33.0 [facility] [address] [place] [address] 20586- 0312 Nov, Spondylitis, cervical M46.92 [facility] [id number] [place] [address] 45949- 6779 Oct, [facility] [id number] [place] [address] 28336- 2715 Oct, Basal cell carcinoma of nose C44.311 [facility] [id number] [place] [address] 52815- 2783 Oct, Spondylitis, cervical M46.92 and Anxiety F41.9 [facility] [id number] [place] [address] 83841- 9403 Oct, Generalized anxiety disorder F41.1 and Mild episode of recurrent major depressive disorder F33.0 [facility] [address] [place] [address] 01336- 5972 Oct, [facility] [address] [place] [address] 67923- 8396 Oct, Spondylitis, cervical M46.92 [facility] [address] [place] [address] 07128- 3134 Oct, [facility] [address] [place] [address] 02312- 6707 Sep, Basal cell carcinoma of nose C44.311 [facility] [id number] [place] [address] 88116- 5069 Sep, Generalized anxiety disorder F41.1 and Mild episode of recurrent major depressive disorder F33.0 [facility] [id number] [place] [address] 87333- 4282 Sep, Spondylitis, cervical M46.92 and Anxiety F41.9 [facility] [id number] [place] [address] 67389- 7696 Sep, [facility] [id number] [place] [address] 20048- 5788 Aug, [facility] [id number] [place] [address] 05400- 6260 Aug, Lesion of nose J34.89 [facility] [id number] [place] [address] 19331- 2457 Aug, Spondylitis, cervical M46.92 ; Fibromyalgia M79.7 and 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 [facility] [id number] [place] [address] 16158- 4903 Aug, Fibromyalgia M79.7 [facility] [id number] [place] [address] 88964- 8579 Aug, Fibromyalgia M79.7 [facility] [id number] [place] [address] 22736- 0786 Aug, [facility] [id number] [place] [address] 08918- 4963 July, [facility] [address] [place] [address] 41979- 3965 July, [facility] [id number] [place] [address] 97528- 8392 July, Arthritis M19.90 [facility] [address] [place] [address] 97040- 7506 July, Inflammatory arthritis M19.90 [facility] [id number] [place] [address] 87644- 8157 Jun, Inflammatory arthritis M19.90 [facility] [id number] [place] [address] 84651- 4405 Jun, Arthritis M19.90 [place] [address] [place] [address] 80663- 0269 May, 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 ; Rheumatoid arthritis of left hip without organ or system involvement with positive rheumatoid factor M05.752 ; Chest pain, unspecified type R07.9 and Needs smoking cessation education F17.200 [place] [id number] [place] [address] 34677- 8857 May, [place] [id number] [place] [address] 15946- 5581 May, Arthritis M19.90 [place] [id number] [place] [address] 67864- 0025 14 May, 2017 Chest pain, unspecified type R07.9 ; Dyspnea on exertion R06.09 ; Claudication of both lower extremities I73.9 ; Hypertension, unspecified type I10 and Tobacco use Z72.0 [place] [id number] [place] [address] 17386- 0295 Apr, Arthritis M19.90 [place] [id number] [place] [address] 11810- 6429 Apr, Arthritis M19.90 [place] [id number] [place] [address] 82687- 6795 12 Apr, 2017 Sinusitis chronic, frontal J32.1 ; Coronary artery disease involving osage coronary artery of osage heart with unstable angina pectoris I25.110 ; Arthritis M19.90 and Fibromyalgia M79.7 [place] [address] [place] [address] 93073- 6457 09 Apr, 2017 Sinusitis chronic, frontal J32.1 ; Coronary artery disease involving [place] coronary artery of [place]age heart with unstable angina pectoris I25.110 ; Arthritis M19.90 and Fibromyalgia M79.7 [place] [address] [place] [address] 00602- 9840 Mar, [facility] [address] [address]- 7315 Mar, Arthritis M19.90 [facility] [id number] [place] [address] 93991- 9278 Mar, Angina at rest I20.8 [facility] [id number] [place] [address] 18370- 2467 Mar, Arthritis M19.90 [facility] [id number] [place] [address] 22166- 6278 Mar, [facility] [id number] [place] [address] 00496- 1121 Feb, [facility] [id number] [place] [address] 14649- 4179 Feb, [facility] [id number] [place] [address] 48159- 9680 Feb, Arthritis M19.90 [facility] [id number] [place] [address] 63864 -0486 Feb, Left foot pain M79.672 and Acute left ankle pain M25.572 [place] [id number] [place] [address] 71136- 7414 Jan, [facility] [address] [place] [address] 18204 -3225 Jan, Arthritis M19.90 ; Spondylitis, cervical M46.92 ; Fibromyalgia M79.7 and Family history of hypothyroidism Z83.49 [place] [address] [address]- 5776 Sep, Dental caries K02.9 [place] [id number] [place] [address] 64598- 5563 Aug, Dental examination Z01.20 [place] [address] [place] [address] 24608- 7823 Apr, Dental examination Z01.20 and Dental caries K02.9 [facility] [address] [facility] [id number] [place] [address]- 3856 16 Apr, 2015 Dental caries K02.9 [facility] [address] [facility] [id number] [place] [address]- 4500 08 Apr, 2015 Dental examination Z01.20 IMMUNIZATIONS No Known Immunizations SOCIAL HISTORY Never Assessed REASON FOR VISIT Cryo PLAN OF CARE Activity Details Follow Up 4 Weeks Reason:cryotherapy VITAL SIGNS Height 59.5 in 2017-10-07 Weight 103.6 lbs 2017-10-07 Temperature 98.5 degrees Fahrenheit 2017-10-07 Heart Rate 68 bpm 2017-10-07 Respiratory Rate 20 2017-10-07 BMI 20.57 kg/m2 2017-10-07 Blood pressure systolic 132 mmHg 2017-10-07 Blood pressure diastolic 86 mmHg 2017-10-07 MEDICATIONS Medication Instructions Dosage Frequency Start Date End Date Duration Status Xanax 0.5 MG Orally Twice a day as needed 1 tablet Sep, 30 days Active Aspirin Childrens 81 MG Orally Once a day 1 tablet 24h Active Nebulizer Active Cymbalta 60 mg Orally Once a day 2 capsule 24h Active Nitroglycerin 0.4 MG Sublingual prn chest pain. at onset. may repeat q5min, if 3 doses taken, need to report to er. 1 tablet Not-Taking Oxycodone HCl 10 mg Orally 4 times a day 1 tablet 6h Sep, 28 days Active DuoNeb by inhalation route 4 times a day 6h Active Remeron 15 mg Orally Once a day at bedtime 1 tablet Sep, 30 day(s) Active Trelegy Ellipta by inhalation route Once a day 1 puff 24h Active Claritin 10 MG Orally Once a day 1 tablet 24h Active Atorvastatin Calcium 20 MG Orally Once a day 1 tablet 24h Active MS Contin 15 mg Orally every 12 hrs 1 tablet 12h Sep, 28 days Active Meloxicam 15 mg Orally Once a day 1 tablet 24h Aug, 90 days Active RESULTS No Results PROCEDURES No [...]
--- OUTSIDE RECORDS SUMMARY | 2018-07-28 09:26 | XMS REPORT ---
Author Author PARISH HOLMAN Organization [facility] Address [address] 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 Active 872123623 Problem Claudication of both lower extremities I73.9 Active 84317314 Problem Generalized anxiety disorder F41.1 Active 24384984 Problem Mild episode of recurrent major depressive disorder F33.0 Active 496731561 Problem Inflammatory arthritis M19.90 Active 6507611 Problem Needs smoking cessation education F17.200 Active 204879466 Problem Anxiety F41.9 Active 50254484 Problem Basal cell carcinoma of nose C44.311 Active 051501914 Problem Arthritis M19.90 Active 1943107 Problem Angina at rest I20.8 Active 473002801 Problem Spondylitis, cervical M46.92 Active 603245545 Problem Sinusitis chronic, frontal J32.1 Active 65930750 Problem Fibromyalgia M79.7 Active 761915063 Problem Coronary artery disease involving [place] coronary artery of [place] heart with unstable angina pectoris I25.110 Active [id number] ALLERGIES No Information ENCOUNTERS Encounter Location Date Diagnosis [facility] [address] [facility] [id number] [address] Dec, [facility] [address] [id number] [address] Nov, [facility] [address] [address] Nov, [facility] [address] [id number] [address] Nov, [facility] [id number] [place] [address] 48502- 9765 Oct, [facility] [id number] [place] [address] 57493- 3436 Oct, Basal cell carcinoma of nose C44.311 [facility] [id number] [place] [address] 70566- 8126 Oct, Spondylitis, cervical M46.92 and Anxiety F41.9 [facility] [id number] [place] [address] 21939- 8737 Oct, Generalized anxiety disorder F41.1 and Mild episode of recurrent major depressive disorder F33.0 [facility] [id number] [place] [address] 90088- 1856 Oct, [facility] [id number] [place] [address] 47636- 2747 Oct, Spondylitis, cervical M46.92 [facility] [id number] [place] [address] 81163- 2132 Oct, [facility] [id number] [place] [address] 11292- 1003 Sep, Basal cell carcinoma of nose C44.311 [facility] [id number] [place] [address] 43921- 0058 Sep, Generalized anxiety disorder F41.1 and Mild episode of recurrent major depressive disorder F33.0 [facility] [id number] [place] [address] 21971- 1303 Sep, Spondylitis, cervical M46.92 and Anxiety F41.9 [facility] [id number] [place] [address] 79265- 6615 Sep, [facility] [id number] [place] [address] 62271- 1106 Aug, [facility] [id number] [place] [address] 41971- 4850 Aug, Lesion of nose J34.89 [facility] [id number] [place] [address] 79349- 7463 Aug, Spondylitis, cervical M46.92 ; Fibromyalgia M79.7 and 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 [facility] [id number] [place] [address] 56356- 3167 Aug, Fibromyalgia M79.7 [facility] [id number] [place] [address] 54468- 2934 Aug, Fibromyalgia M79.7 [facility] [id number] [place] [address] 11845- 1115 Aug, [facility] [id number] [place] [address] 41770- 7696 July, [facility] [id number] [place] [address] 30270- 8893 July, [facility] [id number] [place] [address] 91153- 6813 July, Arthritis M19.90 [facility] [id number] [place] [address] 47338- 8295 July, Inflammatory arthritis M19.90 [facility] [id number] [place] [address] 16424- 4822 Jun, Inflammatory arthritis M19.90 [facility] [id number] [place] [address] 55447- 4590 Jun, Arthritis M19.90 [facility] [address] [place] [address] 46715- 9533 May, 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 ; Rheumatoid arthritis of left hip without organ or system involvement with positive rheumatoid factor M05.752 ; Chest pain, unspecified type R07.9 and Needs smoking cessation education F17.200 [facility] [id number] [place] [address] 91735- 3667 May, [facility] [id number] [place] [address] 35652- 5585 May, Arthritis M19.90 [facility] [id number] [place] [address] 37372- 1978 14 May, 2017 Chest pain, unspecified type R07.9 ; Dyspnea on exertion R06.09 ; Claudication of both lower extremities I73.9 ; Hypertension, unspecified type I10 and Tobacco use Z72.0 [facility] [id number] [place] [address] 49292- 6947 Apr, Arthritis M19.90 [facility] [id number] [place] [address] 20580- 9021 Apr, Arthritis M19.90 [facility] [id number] [place] [address] 26299- 2858 Apr, Sinusitis chronic, frontal J32.1 ; Coronary artery disease involving [place] coronary artery of [place] heart with unstable angina pectoris I25.110 ; Arthritis M19.90 and Fibromyalgia M79.7 [facility] [id number] [place] [address] 15125- 8448 Apr, Sinusitis chronic, frontal J32.1 ; Coronary artery disease involving [place] coronary artery of [place] heart with unstable angina pectoris I25.110 ; Arthritis M19.90 and Fibromyalgia M79.7 [facility] [address] [place] [address] 17665- 6204 Mar, [facility] [id number] [place] [address] 36764- 1981 Mar, Arthritis M19.90 [facility] [id number] [place] [address] 79938- 1756 Mar, Angina at rest I20.8 [facility] [id number] [place] [address] 55012- 7724 Mar, Arthritis M19.90 [facility] [id number] [place] [address] 66513- 2844 Mar, [facility] [id number] [place] [address] 58323- 5382 Feb, [facility] [id number] [place] [address] 93424- 1614 Feb, [place] [address] 91728- 8299 Feb, Arthritis M19.90 [facility] [address] [address] -[address]69 Feb, Left foot pain M79.672 and Acute left ankle pain M25.572 [place] [id number] [place] [address] 30040- 4456 Jan, [facility] [id number] [place] [address] 76186 -0127 Jan, Arthritis M19.90 ; Spondylitis, cervical M46.92 ; Fibromyalgia M79.7 and Family history of hypothyroidism Z83.49 [facility] [id number] [place] [address] 07255- 0567 Sep, Dental caries K02.9 [facility] [id number] [place] [address] 11679- 0421 Aug, Dental examination Z01.20 [facility] [id number] [place] [address] 43762- 6224 23 Apr, 2015 Dental examination Z01.20 and Dental caries K02.9 [facility] [id number] [place] [address] 44158- 7780 16 Apr, 2015 Dental caries K02.9 [facility] [id number] [place] [address] 09988- 5326 08 Apr, 2015 Dental examination Z01.20 IMMUNIZATIONS No Known Immunizations SOCIAL HISTORY Never Assessed REASON FOR VISIT Lab (walk-in) PLAN OF CARE VITAL SIGNS MEDICATIONS Unknown Medications RESULTS No Results PROCEDURES Procedure Date Ordered Result Body Site 09 PANEL (PROFILE 1) August 26, 2017 INSTRUCTIONS MEDICATIONS ADMINISTERED No Known Medications [...]
--- OUTSIDE RECORDS SUMMARY | 2018-07-28 09:26 | XMS REPORT ---
Author Author PARISH HOLMAN Organization [facility] Address [address] 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 Active 746291333 Problem Claudication of both lower extremities I73.9 Active 78398997 Problem Generalized anxiety disorder F41.1 Active 77383274 Problem Mild episode of recurrent major depressive disorder F33.0 Active 530842410 Problem Inflammatory arthritis M19.90 Active 7879222 Problem Needs smoking cessation education F17.200 Active 610629773 Problem Anxiety F41.9 Active 89184641 Problem Basal cell carcinoma of nose C44.311 Active 144596395 Problem Arthritis M19.90 Active 2994798 Problem Angina at rest I20.8 Active 701645191 Problem Spondylitis, cervical M46.92 Active 627253311 Problem Sinusitis chronic, frontal J32.1 Active 39358466 Problem Fibromyalgia M79.7 Active 599989409 Problem Coronary artery disease involving [place] coronary artery of [place] heart with unstable angina pectoris I25.110 Active [id number] ALLERGIES No Information ENCOUNTERS Encounter Location Date Diagnosis [facility] [address] [facility] [id number] [address] Dec, [facility] [id number], [place] [address] Nov, [facility] [address], [place] [address]- [address] Nov, [facility] [id number], [place] [address] 9659 Nov, [facility] [id number] [place] [address] 57414- 1719 Oct, [facility] [id number] [place] [address] 70142- 3776 Oct, Basal cell carcinoma of nose C44.311 [facility] [id number] [place] [address] 16467- 7056 Oct, Spondylitis, cervical M46.92 and Anxiety F41.9 [facility] [id number] [place] [address] 10962- 1334 Oct, Generalized anxiety disorder F41.1 and Mild episode of recurrent major depressive disorder F33.0 [facility] [id number] [place] [address] 11703- 6556 Oct, [facility] [id number] [place] [address] 66893- 0986 Oct, Spondylitis, cervical M46.92 [facility] [id number] [place] [address] 91055- 4947 Oct, [facility] [id number] [place] [address] 67315- 4824 Sep, Basal cell carcinoma of nose C44.311 [facility] [id number] [place] [address] 44789- 5232 Sep, Generalized anxiety disorder F41.1 and Mild episode of recurrent major depressive disorder F33.0 [facility] [address] [place] [address] 41510- 6063 Sep, Spondylitis, cervical M46.92 and Anxiety F41.9 [facility] [id number] [place] [address] 90733- 6344 Sep, [facility] [id number] [place] [address] 46502- 1766 Aug, [facility] [id number] [place] [address] 64884- 4554 Aug, Lesion of nose J34.89 [facility] [id number] [place] [address] 83451- 9620 Aug, Spondylitis, cervical M46.92 ; Fibromyalgia M79.7 and 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 [facility] [id number] [place] [address] 86958- 6486 Aug, Fibromyalgia M79.7 [facility] [id number] [place] [address] 22591- 9823 Aug, Fibromyalgia M79.7 [facility] [id number] [place] [address] 14065- 5906 Aug, [facility] [id number] [place] [address] 00925- 3569 July, [facility] [id number] [place] [address] 27449- 8427 July, [facility] [id number] [place] [address] 49225- 5900 July, Arthritis M19.90 [facility] [id number] [place] [address] 69019- 1378 July, Inflammatory arthritis M19.90 [facility] [id number] [place] [address] 08633- 1063 Jun, Inflammatory arthritis M19.90 [facility] [id number] [place] [address] 02899- 6969 Jun, Arthritis M19.90 [facility] [address] [place] [address] 16315- 3602 May, 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 ; Rheumatoid arthritis of left hip without organ or system involvement with positive rheumatoid factor M05.752 ; Chest pain, unspecified type R07.9 and Needs smoking cessation education F17.200 [facility] [id number] [place] [address] 71374- 3633 May, [facility] [address] [place] [address] 40178- 0361 May, Arthritis M19.90 [facility] [id number] [place] [address] 78100- 7452 14 May, 2017 Chest pain, unspecified type R07.9 ; Dyspnea on exertion R06.09 ; Claudication of both lower extremities I73.9 ; Hypertension, unspecified type I10 and Tobacco use Z72.0 [facility] [id number] [place] [address] 12947- 4544 Apr, Arthritis M19.90 [facility] [id number] [place] [address] 45862- 8018 Apr, Arthritis M19.90 [facility] [id number] [place] [address] 28708- 4536 Apr, Sinusitis chronic, frontal J32.1 ; Coronary artery disease involving [place] coronary artery of [place] heart with unstable angina pectoris I25.110 ; Arthritis M19.90 and Fibromyalgia M79.7 [facility] [id number] [place] [address] 52536- 1900 Apr, Sinusitis chronic, frontal J32.1 ; Coronary artery disease involving [place] coronary artery of [place] heart with unstable angina pectoris I25.110 ; Arthritis M19.90 and Fibromyalgia M79.7 [facility] [address] [place] [address] 54199- 6712 Mar, [facility] [id number] [place] [address] 66248- 9621 Mar, Arthritis M19.90 [facility] [id number] [place] [address] 51911- 2321 Mar, Angina at rest I20.8 [facility] [id number] [place] [address] 70881- 3896 Mar, Arthritis M19.90 [facility] [id number] [place] [address] 01934- 3203 Mar, [facility] [id number] [place] [address] 98011- 1897 Feb, [facility] [id number] [place] [address] 09162- 2519 Feb, [facility] [address] 74912- 9515 Feb, Arthritis M19.90 [facility] [id number] [place] [address] 72775 -5438 Feb, Left foot pain M79.672 and Acute left ankle pain M25.572 [facility] [id number] [place] [address] 21231- 2341 Jan, [facility] [id number] [place] [address] 48055 -1292 Jan, Arthritis M19.90 ; Spondylitis, cervical M46.92 ; Fibromyalgia M79.7 and Family history of hypothyroidism Z83.49 [facility] [id number] [place] [address] 76673- 0890 Sep, Dental caries K02.9 [facility] [id number] [place] [address] 17951- 5886 Aug, Dental examination Z01.20 [facility] [id number] [place] [address] 43773- 8298 Apr, Dental examination Z01.20 and Dental caries K02.9 [facility] [id number] [place] [address] 14750- 6046 Apr, Dental caries K02.9 [facility] [id number] [place] [address] 76202- 6117 08 Apr, 2015 Dental examination Z01.20 IMMUNIZATIONS No Known Immunizations SOCIAL HISTORY Never Assessed REASON FOR VISIT Controlled med refills PLAN OF CARE VITAL SIGNS MEDICATIONS Medication Instructions Dosage Frequency Start Date End Date Duration Status MS Contin 15 mg Orally every 12 hrs 1 tablet 12h 12 Aug, 2017 Sep, 28 days Active Oxycodone HCl 10 mg Orally 4 times a day 1 tablet 6h Aug, 28 days Active RESULTS No Results PROCEDURES [...]
--- OUTSIDE RECORDS SUMMARY | 2018-07-28 09:26 | XMS REPORT ---
Author Author PARISH HOLMAN Organization [facility] Address [address] 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 Active 522622069 Problem Claudication of both lower extremities I73.9 Active 44908821 Problem Generalized anxiety disorder F41.1 Active 54266155 Problem Mild episode of recurrent major depressive disorder F33.0 Active 756228701 Problem Inflammatory arthritis M19.90 Active 0421970 Problem Needs smoking cessation education F17.200 Active 110517910 Problem Anxiety F41.9 Active 39214146 Problem Basal cell carcinoma of nose C44.311 Active 539379225 Problem Arthritis M19.90 Active 5051532 Problem Angina at rest I20.8 Active 511530134 Problem Spondylitis, cervical M46.92 Active 377434254 Problem Sinusitis chronic, frontal J32.1 Active 19057868 Problem Fibromyalgia M79.7 Active 181579414 Problem Coronary artery disease involving [place] coronary artery of [place] heart with unstable angina pectoris I25.110 Active [id number] ALLERGIES No Known Allergies ENCOUNTERS Encounter Location Date Diagnosis [facility] [id number], [place] [address] Dec, [facility] [id number], [place] [address] Nov, [facility] [address], [place] [address] Nov, [facility] [id number], [place] [address] Nov, [place] [address], [place] [address] Nov, [facility] [id number] [place] [address] 14800- 0514 Oct, [facility] [id number] [place] [address] 50951- 0886 Oct, Basal cell carcinoma of nose C44.311 [facility] [id number] [place] [address] 07194- 9393 Oct, Spondylitis, cervical M46.92 and Anxiety F41.9 [facility] [id number] [place] [address] 96217- 2160 Oct, Generalized anxiety disorder F41.1 and Mild episode of recurrent major depressive disorder F33.0 [facility] [id number] [place] [address] 25033- 2914 Oct, [facility] [id number] [place] [address] 66423- 7760 Oct, Spondylitis, cervical M46.92 [facility] [id number] [place] [address] 25558- 3672 Oct, [facility] [id number] [place] [address] 72410- 4937 Sep, Basal cell carcinoma of nose C44.311 [facility] [id number] [place] [address] 51155- 8937 Sep, Generalized anxiety disorder F41.1 and Mild episode of recurrent major depressive disorder F33.0 [facility] [address] [place] [address] 82422- 6445 Sep, Spondylitis, cervical M46.92 and Anxiety F41.9 [facility] [address] [address] 14[address] Sep, [facility] [id number] [place] [address] 85116- 4103 Aug, [facility] [address], [place] [address] Aug, Lesion of nose J34.89 [facility] [address] [place] [address] 49613- 3968 Aug, Spondylitis, cervical M46.92 ; Fibromyalgia M79.7 and 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 [facility] [id number] [place] [address] 70453- 2623 Aug, Fibromyalgia M79.7 [facility] [id number] [place] [address] 10676- 8099 Aug, Fibromyalgia M79.7 [facility] [id number] [place] [address] 64413- 5848 Aug, [facility] [id number] [place] [address] 23983- 4913 July, [facility] [id number] [place] [address] 39074- 5480 July, [facility] [id number] [place] [address] 34147- 2247 July, Arthritis M19.90 [facility] [address] [place] [address] 76387- 0829 July, Inflammatory arthritis M19.90 [facility] [address] [place] [address] 35766- 8414 Jun, Inflammatory arthritis M19.90 [facility] [address], [place] [address] 8[address] Jun, Arthritis M19.90 [facility] [address] [place] [address] 51814- 2285 May, 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 ; Rheumatoid arthritis of left hip without organ or system involvement with positive rheumatoid factor M05.752 ; Chest pain, unspecified type R07.9 and Needs smoking cessation education F17.200 [facility] [address], [place] [address] May, [facility] [id number] [place] [address] 27152- 9909 May, Arthritis M19.90 [place] [id number] [place] [address] 27445- 8453 14 May, 2017 Chest pain, unspecified type R07.9 ; Dyspnea on exertion R06.09 ; Claudication of both lower extremities I73.9 ; Hypertension, unspecified type I10 and Tobacco use Z72.0 [place] [id number] [place] [address] 88017- 1042 21 Apr, 2017 Arthritis M19.90 [place] [id number] [place] [address] 37903- 5217 16 Apr, 2017 Arthritis M19.90 [place] [id number] [place] [address] 45562- 2636 12 Apr, 2017 Sinusitis chronic, frontal J32.1 ; Coronary artery disease involving [place] coronary artery of [place] heart with unstable angina pectoris I25.110 ; Arthritis M19.90 and Fibromyalgia M79.7 [place] [address] [place] [address] 08550- 4794 09 Apr, 2017 Sinusitis chronic, frontal J32.1 ; Coronary artery disease involving [place] coronary artery of [place] heart with unstable angina pectoris I25.110 ; Arthritis M19.90 and Fibromyalgia M79.7 [place] [address] [place] [address] 38992- 9673 Mar, [place] [id number] [place] [address] 21731- 9720 Mar, Arthritis M19.90 [place] [id number] [place] [address] 02514- 4974 Mar, Angina at rest I20.8 [place] [address] [place] [address]- 7898 Mar, Arthritis M19.90 [facility] [address] [address]- 9577 Mar, [facility] [id number] [place] [address] 59126- 4664 Feb, [facility] [address] 65[address]- 7421 Feb, [facility] [address] 91153- 2520 Feb, Arthritis M19.90 [facility] [address] [address] Feb, Left foot pain M79.672 and Acute left ankle pain M25.572 [place] [address] 8[address]87- 1013 Jan, [facility] [id number] [place] [address] 52680 -0370 Jan, Arthritis M19.90 ; Spondylitis, cervical M46.92 ; Fibromyalgia M79.7 and Family history of hypothyroidism Z83.49 [place] [id number] [place] [address] 56188- 8097 Sep, Dental caries K02.9 [place] [id number] [place] [address] 14700- 5915 Aug, Dental examination Z01.20 [place] [id number] [place] [address] 11161- 4774 Apr, Dental examination Z01.20 and Dental caries K02.9 [place] [id number] [place] [address] 20663- 2943 16 Apr, 2015 Dental caries K02.9 [place] [id number] [place] [address] 02933- 0576 08 Feb, 2016 Dental examination Z01.20 IMMUNIZATIONS No Known Immunizations SOCIAL HISTORY Never Assessed REASON FOR VISIT Pain Management f/u, PT left shoulder pain has increased along with right hip pain. PT states she is unable to sleep at night due to pain-[place] [facility] PLAN OF CARE Activity Details Follow Up 6 Weeks Reason:chronic pain VITAL SIGNS Height 59.5 in 2017-09-03 Weight 103.5 lbs 2017-09-03 Temperature 98.8 degrees Fahrenheit 2017-09-03 Heart Rate 76 bpm 2017-09-03 Respiratory Rate 18 2017-09-03 BMI 20.55 kg/m2 2017-09-03 Blood pressure systolic 152 mmHg 2017-09-03 Blood pressure diastolic 80 mmHg 2017-09-03 MEDICATIONS Medication Instructions Dosage Frequency Start Date End Date Duration Status Claritin 10 MG Orally Once a day 1 tablet 24h Active Cymbalta 60 mg Orally Once a day 2 capsule 24h Active Cymbalta 30 MG Orally Once a day 1 capsule 24h Not-Taking DuoNeb by inhalation route 4 times a day 6h Active Xanax 1 MG by oral route 3 times a day 1 tablet 8h Active Nitroglycerin 0.4 MG Sublingual prn chest pain. at onset. may repeat q5min, if 3 doses taken, need to report to er. 1 tablet Not-Taking Atorvastatin Calcium 20 MG Orally Once a day 1 tablet 24h Active Aspirin Childrens 81 MG Orally Once a day 1 tablet 24h Active MS Contin 15 mg Orally every 12 hrs 1 tablet 12h 12 Aug, 2017 Sep, 28 days Active Meloxicam 15 mg Orally Once a day 1 tablet 24h 20 Aug, 2017 90 days Active Nebulizer Active Oxycodone HCl 10 mg Orally 4 [...]
--- OUTSIDE RECORDS SUMMARY | 2018-07-28 09:26 | XMS REPORT ---
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 Active 186046974 Problem Claudication of both lower extremities I73.9 Active 97844737 Problem Generalized anxiety disorder F41.1 Active 41165446 Problem Mild episode of recurrent major depressive disorder F33.0 Active 613860864 Problem Inflammatory arthritis M19.90 Active 5747245 Problem Needs smoking cessation education F17.200 Active 143557692 Problem Anxiety F41.9 Active 02012016 Problem Basal cell carcinoma of nose C44.311 Active 669733921 Problem Arthritis M19.90 Active 6642806 Problem Angina at rest I20.8 Active 491957384 Problem Spondylitis, cervical M46.92 Active 758608211 Problem Sinusitis chronic, frontal J32.1 Active 67810973 Problem Fibromyalgia M79.7 Active 099686344 Problem 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 Active 1135006609831 ALLERGIES No Known Allergies ENCOUNTERS Encounter Location Date Diagnosis [facility] [id number], [place] [address] Dec, [facility] [address], [place] [address]- 7[address] Nov, [facility] [address], [place] [address]- 2725 Nov, [facility] [address], [place] [address]- 0590 Nov, [facility] [address], [place] [address]- 9295 Nov, [facility] [id number] [place] [address] 96491- 6114 Oct, [facility] [id number] [place] [address] 27747- 4979 Oct, Basal cell carcinoma of nose C44.311 [facility] [id number] [place] [address] 99937- 8766 Oct, Spondylitis, cervical M46.92 and Anxiety F41.9 [facility] [id number] [place] [address] 95172- 4133 Oct, Generalized anxiety disorder F41.1 and Mild episode of recurrent major depressive disorder F33.0 [facility] [id number] [place] [address] 14305- 1725 Oct, [facility] [id number] [place] [address] 55745- 7583 Oct, Spondylitis, cervical M46.92 [facility] [id number] [place] [address] 77952- 6767 Oct, [facility] [id number] [place] [address] 03162- 1470 Sep, Basal cell carcinoma of nose C44.311 [facility] [address] [place] [address] 63313- 9346 Sep, Generalized anxiety disorder F41.1 and Mild episode of recurrent major depressive disorder F33.0 [facility] [address], [place] [address]- 7363 Sep, Spondylitis, cervical M46.92 and Anxiety F41.9 [facility] [address], [place] [address]- 7326 Sep, [facility] [address] [place] [address] 32151- 3982 Aug, [facility] [address], [place] [address]- 1604 Aug, Lesion of nose J34.89 [facility] [id number] [place] [address] 58447- 2318 Aug, Spondylitis, cervical M46.92 ; Fibromyalgia M79.7 and 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 [facility] [id number] [place] [address] 90990- 1959 Aug, Fibromyalgia M79.7 [facility] [id number] [place] [address] 03695- 1177 Aug, Fibromyalgia M79.7 [facility] [id number] [place] [address] 24821- 4082 Aug, [facility] [id number] [place] [address] 49536- 8211 July, [facility] [id number] [place] [address] 55697- 1708 July, [facility] [id number] [place] [address] 75655- 8177 July, Arthritis M19.90 [facility] [id number] [place] [address] 00007- 0629 July, Inflammatory arthritis M19.90 [facility] [address] [place] [address] 11509- 8159 Jun, Inflammatory arthritis M19.90 [facility] [address] [place] [address] 06314- 8162 Jun, Arthritis M19.90 [facility] [id number] [place] [address] 82524- 3249 May, 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 ; Rheumatoid arthritis of left hip without organ or system involvement with positive rheumatoid factor M05.752 ; Chest pain, unspecified type R07.9 and Needs smoking cessation education F17.200 [place] [address] [id number] [place] [address] 57586- 9749 May, [place] [id number] [place] [address] 44908- 7610 May, Arthritis M19.90 [place] [id number] [place] [address] 44178- 7222 14 May, 2017 Chest pain, unspecified type R07.9 ; Dyspnea on exertion R06.09 ; Claudication of both lower extremities I73.9 ; Hypertension, unspecified type I10 and Tobacco use Z72.0 [place] [address] 95408- 7946 Apr, Arthritis M19.90 [place] [id number] [place] [address] 17643- 6841 16 Apr, 2017 Arthritis M19.90 [place] [id number] [place] [address] 72517- 4450 12 Apr, 2017 Sinusitis chronic, frontal J32.1 ; 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 ; Arthritis M19.90 and Fibromyalgia M79.7 [place] [id number] [place] [address] 96967- 4660 09 Apr, 2017 Sinusitis chronic, frontal J32.1 ; 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 ; Arthritis M19.90 and Fibromyalgia M79.7 [place] [address] [place] [address] 01396- 7400 Mar, [place] [id number] [place] [address] 56304- 6532 Mar, Arthritis M19.90 [place] [id number] [place] [address] 11590- 2380 Mar, Angina at rest I20.8 [place] [address] [place] [address]- 6062 Mar, Arthritis M19.90 [facility] [id number] [place] [address] 21787- 5948 Mar, [facility] [id number] [place] [address] 94861- 5803 Feb, [facility] [id number] [place] [address] 12142- 4399 Feb, [place] [address] 0[address]19- 8000 Feb, Arthritis M19.90 [facility] [address] [address] -1725 Feb, Left foot pain M79.672 and Acute left ankle pain M25.572 [place] [id number] [place] [address] 14889- 0135 Jan, [facility] [id number] [place] [address] 88441 -5779 Jan, Arthritis M19.90 ; Spondylitis, cervical M46.92 ; Fibromyalgia M79.7 and Family history of hypothyroidism Z83.49 [place] [id number] [place] [address] 87947- 4410 Sep, Dental caries K02.9 [place] [id number] [place] [address] 22266- 4626 Aug, Dental examination Z01.20 [place] [id number] [place] [address] 84034- 5857 23 Apr, 2015 Dental examination Z01.20 and Dental caries K02.9 [place] [id number] [place] [address] 85569- 8580 16 Apr, 2015 Dental caries K02.9 [place] [id number] [place] [address] 29201- 4250 08 Apr, 2015 Dental examination Z01.20 IMMUNIZATIONS No Known Immunizations SOCIAL HISTORY Never Assessed REASON FOR VISIT spot on nose, has been more than a year since cryo. [facility] PLAN OF CARE Activity Details Follow Up 4 Weeks Reason:cryo VITAL SIGNS Height 59.5 in 2017-09-05 Weight 100.5 lbs 2017-09-05 Temperature 98.5 degrees Fahrenheit 2017-09-05 Heart Rate 92 bpm 2017-09-05 Respiratory Rate 18 2017-09-05 BMI 19.96 kg/m2 2017-09-05 Blood pressure systolic 140 mmHg 2017-09-05 Blood pressure diastolic 82 mmHg 2017-09-05 MEDICATIONS Medication Instructions Dosage Frequency Start Date End Date Duration Status Aspirin Childrens 81 MG Orally Once a day 1 tablet 24h Active Atorvastatin Calcium 20 MG Orally Once a day 1 tablet 24h Active Claritin 10 MG Orally Once a day 1 tablet 24h Active Meloxicam 15 mg Orally Once a day 1 tablet 24h Aug, 90 days Active Cymbalta 30 MG Orally Once a day 1 capsule 24h Not-Taking Cymbalta 60 mg Orally Once a day 2 capsule 24h Active Oxycodone HCl 10 mg Orally 4 times a day 1 tablet 6h Aug, 28 days Active DuoNeb by inhalation route 4 times a day 6h Active Nitroglycerin 0.4 MG Sublingual prn chest pain. at onset. may repeat q5min, if 3 doses taken, need to report to er. 1 tablet Not-Taking MS Contin 15 mg Orally every 12 hrs 1 tablet 12h Aug, Sep, 28 days Active Xanax 1 MG by oral route 3 times a day 1 tablet 8h Active Nebulizer Active RESULTS No Results PROCEDURES [...]
--- OUTSIDE RECORDS SUMMARY | 2018-07-28 09:27 | XMS REPORT ---
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 Active 225847911 Problem Claudication of both lower extremities I73.9 Active 24229006 Problem Generalized anxiety disorder F41.1 Active 10753864 Problem Mild episode of recurrent major depressive disorder F33.0 Active 947639519 Problem Inflammatory arthritis M19.90 Active 9914925 Problem Needs smoking cessation education F17.200 Active 941364420 Problem Anxiety F41.9 Active 06662530 Problem Basal cell carcinoma of nose C44.311 Active 900064046 Problem Arthritis M19.90 Active 3200475 Problem Angina at rest I20.8 Active 041716596 Problem Spondylitis, cervical M46.92 Active 256678579 Problem Sinusitis chronic, frontal J32.1 Active 64895092 Problem Fibromyalgia M79.7 Active 257242502 Problem Coronary artery disease involving iroquois coronary artery of iroquois heart with unstable angina pectoris I25.110 Active [id number] ALLERGIES No Information ENCOUNTERS Encounter Location Date Diagnosis [facility], [place] [address] [facility] [id number] [place] [address] Nov, [facility] [place] [address] [facility] [id number] [place] [address] Nov, [facility] [place] [address] [address] Oct, [facility] [place] [address] [facility] [id number] [place] [address] Oct, [facility] [place] [id number] [place] [address] 65349- 5509 Oct, [facility] [place] [address] [place] [id number] [place] [address] 19152- 1205 Oct, Spondylitis, cervical M46.92 and Anxiety F41.9 [facility] [place] [address] [place] [id number] [place] [address] 72148- 3133 Oct, Generalized anxiety disorder F41.1 and Mild episode of recurrent major depressive disorder F33.0 [place] [address] [place] [id number] [place] [address] 67576- 7773 Oct, [place] [address] [place] [id number] [place] [address] 34661- 2055 Oct, Spondylitis, cervical M46.92 [facility] [place] [address] [place] [id number] [place] [address] 77131- 7245 Oct, [facility] [place] [address] [place] [id number] [place] [address] 83039- 1347 Sep, Basal cell carcinoma of nose C44.311 [place] [address] [place] [id number] [place] [address] 44448- 6183 Sep, Generalized anxiety disorder F41.1 and Mild episode of recurrent major depressive disorder F33.0 [facility] [place] [address] [place] [address] 82130- 2230 Sep, Spondylitis, cervical M46.92 and Anxiety F41.9 [facility] [place] [address] [place] [address] 38922- 7084 Sep, [facility] [place] [address] [place] [id number] [place] [address] 24470- 2854 Aug, [facility] [place] [address] [place] [id number] [place] [address] 28500- 6789 Aug, Lesion of nose J34.89 [facility] [place] [address] [place] [id number] [place] [address] 45319- 0081 Aug, Spondylitis, cervical M46.92 ; Fibromyalgia M79.7 and 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 [facility] [place] [address] [place] [id number] [place] [address] 91363- 1018 Aug, Fibromyalgia M79.7 [facility] [place] [address] [place] [address] 40693- 6187 Aug, Fibromyalgia M79.7 [facility] [place] [address] [place] [id number] [place] [address] 86957- 7432 Aug, [facility] [place] [address] [place] [id number] [place] [address] 43785- 3013 July, [facility] [place] [address] [place] [id number] [place] [address] 76837- 4366 July, [facility] [place] [address] [place] [id number] [place] [address] 74514- 8884 July, Arthritis M19.90 [facility] [place] [address] [place] [id number] [place] [address] 61520- 1589 July, Inflammatory arthritis M19.90 [facility] [place] [address] [place] [id number] [place] [address] 41711- 2468 Jun, Inflammatory arthritis M19.90 [facility] [place] [address] [address] 52[address] Jun, Arthritis M19.90 [facility] [place] [address] [place] [address] 43194- 5469 May, 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9 ; Dyspnea on exertion R06.09 ; Claudication of both lower extremities I73.9 ; Hypertension, unspecified type I10 and Tobacco use Z72.0 [facility] [place] [address] [place] [id number] [place] [address] 95559- 7723 Apr, Arthritis M19.90 [facility] [place] [address] [place] [id number] [place] [address] 20342- 1859 Apr, Arthritis M19.90 [facility] [place] [address] [place] [id number] [place] [address] 26709- 7829 12 Apr, 2017 Sinusitis chronic, frontal J32.1 ; Coronary artery disease involving iroquois coronary artery of iroquois heart with unstable angina pectoris I25.110 ; Arthritis M19.90 and Fibromyalgia M79.7 [facility] [place] [address] [place] [id number] [place] [address] 52829- 2828 09 Apr, 2017 Sinusitis chronic, frontal J32.1 ; Coronary artery disease involving iroquois coronary artery of iroquois heart with unstable angina pectoris I25.110 ; Arthritis M19.90 and Fibromyalgia M79.7 [facility] [place] [address] [place] [id number] [place] [address] 20989- 8223 Mar, [facility] [place] [id number] [place] [address] 94665- 8561 Mar, Arthritis M19.90 [facility] [place] [address] [place] [id number] [place] [address] 17185- 3412 Mar, Angina at rest I20.8 [facility] [place] [address] [place] [id number] [place] [address] 21173- 0415 Mar, Arthritis M19.90 [facility] [place] [address] [place] [id number] [place] [address] 45425- 0271 Mar, [facility] [place] [address] [place] [address] 6871 Feb, [place] [address] [place] [id number] [place] [address] 68787- 5258 Feb, [place] [address] [place] [id number] [place] [address] 51791- 6967 Feb, Arthritis M19.90 [facility] [address] [place] [id number] [place] [address] 28636 -2339 Feb, Left foot pain M79.672 and Acute left ankle pain M25.572 [place] [address] [place] [id number] [place] [address] 77139- 5523 Jan, [facility] [place] [address] [address] Jan, Arthritis M19.90 ; Spondylitis, cervical M46.92 ; Fibromyalgia M79.7 and Family history of hypothyroidism Z83.49 [place] [address] [place] [id number] [place] [address] 52768- 0802 Sep, Dental caries K02.9 [place] [address] 15193- 9788 Aug, Dental examination Z01.20 [place] [address] [place] [id number] [place] [address] 16196- 6204 23 Apr, 2015 Dental examination Z01.20 and Dental caries K02.9 [place] [address] [place] [id number] [place] [address] 10566- 0234 Apr, Dental caries K02.9 [place] [address] [place] [id number] [place] [address] 67659- 8686 08 Apr, 2015 Dental examination Z01.20 IMMUNIZATIONS No Known Immunizations SOCIAL HISTORY Never Assessed REASON FOR VISIT Controlled Med Refill 07/29/17 PLAN OF CARE VITAL SIGNS MEDICATIONS Medication Instructions Dosage Frequency Start Date End Date Duration Status Morphine Sulfate ER 30 MG Orally every 12 hrs 1 tablet 12h July, 28 days Active Oxycodone HCl 10 mg Orally 4 times a day 1 tablet 6h July, 28 days Active MS Contin 15 mg Orally every 12 hrs / take with 30mg tablets 1 tablet July, 28 days Active RESULTS No Results PROCEDURES [...]
--- OUTSIDE RECORDS SUMMARY | 2018-07-28 09:27 | XMS REPORT ---
Author Author PARISH HOLMAN Organization [facility] Address [address] 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 Active 985202119 Problem Claudication of both lower extremities I73.9 Active 83186632 Problem Generalized anxiety disorder F41.1 Active 68599167 Problem Mild episode of recurrent major depressive disorder F33.0 Active 464867037 Problem Inflammatory arthritis M19.90 Active 6742866 Problem Needs smoking cessation education F17.200 Active 577528432 Problem Anxiety F41.9 Active 90061360 Problem Basal cell carcinoma of nose C44.311 Active 252540693 Problem Arthritis M19.90 Active 2581954 Problem Angina at rest I20.8 Active 584219991 Problem Spondylitis, cervical M46.92 Active 072378410 Problem Sinusitis chronic, frontal J32.1 Active 28581639 Problem Fibromyalgia M79.7 Active 596458610 Problem 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 Active 2957732910507 ALLERGIES No Information ENCOUNTERS Encounter Location Date Diagnosis [facility] [address] [facility] [id number] [address] Nov, [facility] [address] [place] [id number] [address]- 9858 Nov, [facility] [address] [place] [id number] [address]- 408[address] Oct, [facility] [address] [place] [id number] [address]- 9660 Oct, [facility] [address] [place] [id number] [place] [address] 35450- 2743 Oct, [facility] [address] [place] [id number] [place] [address] 56779- 8068 Oct, Spondylitis, cervical M46.92 and Anxiety F41.9 [facility] [address] [place] [id number] [place] [address] 74461- 4649 Oct, Generalized anxiety disorder F41.1 and Mild episode of recurrent major depressive disorder F33.0 [facility] [address] [place] [id number] [place] [address] 57605- 9084 Oct, [facility] [address] [place] [id number] [place] [address] 03679- 2816 Oct, Spondylitis, cervical M46.92 [facility] [address] [place] [id number] [place] [address] 29605- 7539 Oct, [facility] [address] [place] [id number] [place] [address] 77035- 1307 Sep, Basal cell carcinoma of nose C44.311 [place] [address] [place] [id number] [place] [address] 67178- 4385 Sep, Generalized anxiety disorder F41.1 and Mild episode of recurrent major depressive disorder F33.0 [facility] [address] [place] [id number] [place] [address] 62070- 5870 Sep, Spondylitis, cervical M46.92 and Anxiety F41.9 [facility] [address] [place] [id number] [place] [address] 52311- 8317 Sep, [facility] [address] [place] [id number] [place] [address] 57278- 4729 Aug, [facility] [address] [place] [id number] [place] [address] 57446- 8606 Aug, Lesion of nose J34.89 [facility] [address] [place] [id number] [place] [address] 75303- 8165 Aug, Spondylitis, cervical M46.92 ; Fibromyalgia M79.7 and 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 [facility] [address] [place] [id number] [place] [address] 69122- 9027 Aug, Fibromyalgia M79.7 [facility] [address] [place] [address] 16539- 9379 Aug, Fibromyalgia M79.7 [facility] [address] [place] [id number] [place] [address] 57744- 7651 Aug, [facility] [address] [place] [id number] [place] [address] 56799- 0724 July, [facility] [address] [place] [id number] [place] [address] 48526- 0057 July, [facility] [address] [place] [id number] [place] [address] 55383- 0533 July, Arthritis M19.90 [facility] [address] [place] [id number] [place] [address] 08403- 4573 July, Inflammatory arthritis M19.90 [facility] [address] [place] [id number] [place] [address] 10553- 0115 Jun, Inflammatory arthritis M19.90 [facility] [address] [place] [address] 88362- 5810 Jun, Arthritis M19.90 [facility] [address] [place] [id number] [place] [address] 71475- 1359 May, 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 ; Rheumatoid arthritis of left hip without organ or system involvement with positive rheumatoid factor M05.752 ; Chest pain, unspecified type R07.9 and Needs smoking cessation education F17.200 [facility] [address] [address]- 4270 May, [facility] [address] [place] [id number] [place] [address] 69774- 8254 May, Arthritis M19.90 [facility] [address] [address]- 2905 14 May, 2017 Chest pain, unspecified type R07.9 ; Dyspnea on exertion R06.09 ; Claudication of both lower extremities I73.9 ; Hypertension, unspecified type I10 and Tobacco use Z72.0 [facility] [address] [place] [id number] [place] [address] 97380- 1009 Apr, Arthritis M19.90 [facility] [address] [place] [id number] [place] [address] 55358- 6433 Apr, Arthritis M19.90 [place] [address] [place] [id number] [place] [address] 56868- 4325 12 Apr, 2017 Sinusitis chronic, frontal J32.1 ; 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 ; Arthritis M19.90 and Fibromyalgia M79.7 [facility] [address] [place] [id number] [place] [address] 34373- 4750 09 Apr, 2017 Sinusitis chronic, frontal J32.1 ; 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 ; Arthritis M19.90 and Fibromyalgia M79.7 [place] [address] [place] [address] 64189- 3226 Mar, [place] [address] [place] [address] 27432- 9765 Mar, Arthritis M19.90 [facility] [address] [place] [address] 15001- 2319 Mar, Angina at rest I20.8 [place] [address] [place] [id number] [place] [address] 01311- 0757 Mar, Arthritis M19.90 [facility] [address] [place] [address] 86603- 7948 Mar, [facility] [address] [place] [id number] [place] [address] 74555- 7777 Feb, [place] [address] [place] [id number] [place] [address] 36811- 2795 Feb, [place] [address] [place] [id number] [place] [address]11 Feb, Arthritis M19.90 [facility] [place] [address] [place] [id number] [place] [address] 24851 -1373 Feb, Left foot pain M79.672 and Acute left ankle pain M25.572 [place] [address] [place] [id number] [place] [address] 42999- 4980 Jan, [facility] [place] [address] 85839 -4686 Jan, Arthritis M19.90 ; Spondylitis, cervical M46.92 ; Fibromyalgia M79.7 and Family history of hypothyroidism Z83.49 [place] [address] [place] [id number] [place] [address] 12694- 3473 Sep, Dental caries K02.9 [place] [address] [place] [id number] [place] [address] 82651- 9532 Aug, Dental examination Z01.20 [place] [address] [place] [id number] [place] [address] 03298- 1049 23 Apr, 2015 Dental examination Z01.20 and Dental caries K02.9 [place] [address] [place] [id number] [place] [address] 41824- 1531 16 Apr, 2015 Dental caries K02.9 [place] [address] [place] [id number] [place] [address] 01555- 9272 08 Apr, 2015 Dental examination Z01.20 IMMUNIZATIONS No Known Immunizations SOCIAL HISTORY Never Assessed REASON FOR VISIT Controlled med PLAN OF CARE VITAL SIGNS MEDICATIONS Medication Instructions Dosage Frequency Start Date End Date Duration Status Morphine Sulfate ER 30 mg Orally every 12 hrs 1 tablet 12h 15 Jul, 2017 Aug, 28 days Active RESULTS No Results [...]
--- OUTSIDE RECORDS SUMMARY | 2018-07-28 09:27 | XMS REPORT ---
Author Author PARISH HOLMAN Organization [facility] Address [address] 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 Role Phone PARISH HOLMAN Unavailable PROBLEMS Type Condition ICD9-CM Code EBI71-KZ Code Onset Dates Condition Status SNOMED Code Problem Hypertension, unspecified type I10 Active 05023246 Problem 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 Active 507987891 Problem Claudication of both lower extremities I73.9 Active 20480348 Problem Generalized anxiety disorder F41.1 Active 83549143 Problem Mild episode of recurrent major depressive disorder F33.0 Active 078341934 Problem Inflammatory arthritis M19.90 Active 3526947 Problem Needs smoking cessation education F17.200 Active 134697703 Problem Anxiety F41.9 Active 29293584 Problem Basal cell carcinoma of nose C44.311 Active 467913312 Problem Arthritis M19.90 Active 5193939 Problem Angina at rest I20.8 Active 299813537 Problem Spondylitis, cervical M46.92 Active 247296845 Problem Sinusitis chronic, frontal J32.1 Active 74048179 Problem Fibromyalgia M79.7 Active 827495365 Problem Coronary artery disease involving [place] coronary artery of [place] heart with unstable angina pectoris I25.110 Active [id number] ALLERGIES No Known Allergies ENCOUNTERS Encounter Location Date Diagnosis [facility] [address] [facility] [id number] [address] Nov, [facility] [id number] [address] Nov, [facility] [id number] [address] Oct, [facility] [id number] [address] 1779 Oct, [facility] [id number] [place] [address] 62600- 4333 Oct, [facility] [id number] [place] [address] 88966- 1949 Oct, Spondylitis, cervical M46.92 and Anxiety F41.9 [facility] [id number] [place] [address] 81758- 3688 Oct, Generalized anxiety disorder F41.1 and Mild episode of recurrent major depressive disorder F33.0 [facility] [id number] [place] [address] 54385- 4293 Oct, [place] [id number] [place] [address] 38630- 4430 Oct, Spondylitis, cervical M46.92 [place] [id number] [place] [address] 95912- 6485 Oct, [facility] [id number] [place] [address] 46649- 9737 Sep, Basal cell carcinoma of nose C44.311 [place] [id number] [place] [address] 78979- 2732 Sep, Generalized anxiety disorder F41.1 and Mild episode of recurrent major depressive disorder F33.0 [facility] [id number] [place] [address] 89417- 5577 Sep, Spondylitis, cervical M46.92 and Anxiety F41.9 [facility] [address] [place] [address] 79125- 6178 Sep, [facility] [id number] [place] [address] 12399- 4236 Aug, [facility] [id number] [place] [address] 52523- 5398 Aug, Lesion of nose J34.89 [facility] [id number] [place] [address] 97617- 6417 Aug, Spondylitis, cervical M46.92 ; Fibromyalgia M79.7 and 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 [facility] [id number] [place] [address] 19866- 1325 Aug, Fibromyalgia M79.7 [facility] [id number] [place] [address] 99979- 5975 Aug, Fibromyalgia M79.7 [facility] [id number] [place] [address] 72199- 5194 Aug, [facility] [id number] [place] [address] 26346- 7617 July, [facility] [id number] [place] [address] 15046- 3617 July, [facility] [id number] [place] [address] 94600- 1181 July, Arthritis M19.90 [facility] [id number] [place] [address] 83498- 5278 July, Inflammatory arthritis M19.90 [facility] [id number] [place] [address] 20537- 9188 Jun, Inflammatory arthritis M19.90 [facility] [id number] [place] [address] 96664- 5724 Jun, Arthritis M19.90 [facility] [id number] [place] [address] 51557- 7154 May, 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 ; Rheumatoid arthritis of left hip without organ or system involvement with positive rheumatoid factor M05.752 ; Chest pain, unspecified type R07.9 and Needs smoking cessation education F17.200 [facility] [address] [place] [address] 02499- 3013 May, [facility] [id number] [place] [address] 57502- 3403 May, Arthritis M19.90 [facility] [address] [place] [address] 17824- 2283 14 May, 2017 Chest pain, unspecified type R07.9 ; Dyspnea on exertion R06.09 ; Claudication of both lower extremities I73.9 ; Hypertension, unspecified type I10 and Tobacco use Z72.0 [facility] [id number] [place] [address] 87259- 0018 Apr, Arthritis M19.90 [facility] [id number] [place] [address] 04211- 6537 Apr, Arthritis M19.90 [facility] [id number] [place] [address] 60426- 4993 12 Apr, 2017 Sinusitis chronic, frontal J32.1 ; Coronary artery disease involving [place] coronary artery of [place] heart with unstable angina pectoris I25.110 ; Arthritis M19.90 and Fibromyalgia M79.7 [facility] [id number] [place] [address] 03555- 3714 Apr, Sinusitis chronic, frontal J32.1 ; Coronary artery disease involving [place] coronary artery of [place] heart with unstable angina pectoris I25.110 ; Arthritis M19.90 and Fibromyalgia M79.7 [facility] [address] [place] [address] 51616- 6494 Mar, [place] [address] [place] [address] 09745- 8470 Mar, Arthritis M19.90 [facility] [address] [place] [address] 18795- 2018 Mar, Angina at rest I20.8 [facility] [place] [id number] [place] [address] 16750- 7316 Mar, Arthritis M19.90 [facility] [address] [place] [address] 94416- 9089 Mar, [facility] [id number] [place] [address] 78683- 0850 Feb, [place] [id number] [place] [address] 54235- 6877 Feb, [place] [address] [place]66[address]- 0637 Feb, Arthritis M19.90 [facility] [place] [address] [address] -[address]67 Feb, Left foot pain M79.672 and Acute left ankle pain M25.572 [place] [id number] [place] [address] 46142- 3483 Jan, [facility] [place] [address] 99356 -1196 Jan, Arthritis M19.90 ; Spondylitis, cervical M46.92 ; Fibromyalgia M79.7 and Family history of hypothyroidism Z83.49 [place] [id number] [place] [address] 10405- 2083 Sep, Dental caries K02.9 [place] [id number] [place] [address] 48470- 4665 Aug, Dental examination Z01.20 [place] [id number] [place] [address] 72312- 5066 Apr, Dental examination Z01.20 and Dental caries K02.9 [facility] [id number] [place] [address] 48222- 7545 Apr, Dental caries K02.9 [place] [id number] [place] [address] 87776- 3806 Apr, Dental examination Z01.20 IMMUNIZATIONS No Known Immunizations SOCIAL HISTORY Never Assessed REASON FOR VISIT Pain Management Consult- ROSALBA Boateng, Back injury in the late , Recently diagnosed with RA, Has previously been treated for fibromyalgia PLAN OF CARE Activity Details Follow Up we will call Reason: VITAL SIGNS Height 59.5 in 2017-07-09 Weight 100.2 lbs 2017-07-09 Temperature 98.2 degrees Fahrenheit 2017-07-09 Heart Rate 80 bpm 2017-07-09 Respiratory Rate 20 2017-07-09 BMI 19.90 kg/m2 2017-07-09 Blood pressure systolic 130 mmHg 2017-07-09 Blood pressure diastolic 72 mmHg 2017-07-09 MEDICATIONS Medication Instructions Dosage Frequency Start Date End Date Duration Status Claritin 10 MG Orally Once a day 1 tablet 24h Active Nitroglycerin 0.4 MG Sublingual prn chest pain. at onset. may repeat q5min, if 3 doses taken, need to report to er. 1 tablet Active Xanax XR 1 MG Orally Once a day 1 tablet in the morning 24h Active Atorvastatin Calcium 20 MG Orally Once a day 1 tablet 24h Active Cymbalta 60 mg Orally Once a day 2 capsule 24h Active Morphine Sulfate ER 60 MG Orally every 12 hrs 1 tablet 12h Jun, 28 days Active Oxycodone HCl 10 mg Orally 4 times a day 1 tablet 6h Jun, 28 days Active Cymbalta 30 MG Orally Once a day 1 capsule 24h Not-Taking Aspirin Childrens 81 MG Orally Once a day 1 tablet 24h Active RESULTS Name Result Date Reference Range Xray : Knees, Bilateral (IN HOUSE) 2017-07-09 Xray : Foot, Left 3 views (IN HOUSE) 2017-07-09 Xray : Foot, Right 3 views (IN HOUSE) 2017-07-09 Xray : Hand, Left 3 views (IN HOUSE) 2017-07-09 Xray : Hand, Right 3 views (IN HOUSE) 2017-07-09 PROCEDURES Procedure Date Ordered Result Body Site X-RAY EXAM OF FOOT July 09, 2017 X-RAY EXAM OF HAND July 09, 2017 X-RAY EXAM OF KNEES July 09, 2017 INSTRUCTIONS MEDICATIONS ADMINISTERED No Known Medications [...]
--- OUTSIDE RECORDS SUMMARY | 2018-07-28 09:27 | XMS REPORT ---
Author Author PARISH HOLMAN Organization [facility] Address [address] 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 Role Phone PARISH HOLMAN Unavailable PROBLEMS Type Condition ICD9-CM Code MXS72-NZ Code Onset Dates Condition Status SNOMED Code Problem Hypertension, unspecified type I10 Active 95898971 Problem 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 Active 434044318 Problem Claudication of both lower extremities I73.9 Active 35899409 Problem Generalized anxiety disorder F41.1 Active 92119839 Problem Mild episode of recurrent major depressive disorder F33.0 Active 277136755 Problem Inflammatory arthritis M19.90 Active 1650014 Problem Needs smoking cessation education F17.200 Active 319932616 Problem Anxiety F41.9 Active 94212220 Problem Basal cell carcinoma of nose C44.311 Active 204382696 Problem Arthritis M19.90 Active 4998421 Problem Angina at rest I20.8 Active 526325118 Problem Spondylitis, cervical M46.92 Active 216639619 Problem Sinusitis chronic, frontal J32.1 Active 69887537 Problem Fibromyalgia M79.7 Active 424467577 Problem Coronary artery disease involving [place] coronary artery of [place] heart with unstable angina pectoris I25.110 Active [id number] ALLERGIES No Information ENCOUNTERS Encounter Location Date Diagnosis [facility] [id number] [address] Nov, [facility] [address] [address]- 6925 Nov, [facility] [address] [address]- 0233 Nov, [facility] [id number] [address]- [address] Oct, [facility] [id number] [place] [address] 71462- 0128 Oct, [facility] [id number] [place] [address] 16512- 0626 Oct, Basal cell carcinoma of nose C44.311 [facility] [id number] [place] [address] 48225- 7416 Oct, Spondylitis, cervical M46.92 and Anxiety F41.9 [facility] [id number] [place] [address] 34942- 1463 Oct, Generalized anxiety disorder F41.1 and Mild episode of recurrent major depressive disorder F33.0 [facility] [id number] [place] [address] 87687- 9186 Oct, [facility] [id number] [place] [address] 64919- 5712 Oct, Spondylitis, cervical M46.92 [facility] [id number] [place] [address] 13433- 5596 Oct, [facility] [id number] [place] [address] 89504- 3746 Sep, Basal cell carcinoma of nose C44.311 [facility] [id number] [place] [address] 11310- 5577 Sep, Generalized anxiety disorder F41.1 and Mild episode of recurrent major depressive disorder F33.0 [facility] [id number] [place] [address] 49884- 1489 Sep, Spondylitis, cervical M46.92 and Anxiety F41.9 [facility] [id number] [place] [address] 80820- 0519 Sep, [facility] [id number] [place] [address] 94465- 4566 Aug, [facility] [id number] [place] [address] 92768- 8517 Aug, Lesion of nose J34.89 [facility] [id number] [place] [address] 99987- 3201 Aug, Spondylitis, cervical M46.92 ; Fibromyalgia M79.7 and 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 [facility] [id number] [place] [address] 73904- 6623 Aug, Fibromyalgia M79.7 [facility] [id number] [place] [address] 41581- 8800 Aug, Fibromyalgia M79.7 [facility] [id number] [place] [address] 06124- 7538 Aug, [facility] [id number] [place] [address] 68505- 5565 July, [facility] [id number] [place] [address] 44805- 1706 July, [facility] [id number] [place] [address] 53668- 2183 July, Arthritis M19.90 [facility] [id number] [place] [address] 18760- 5904 July, Inflammatory arthritis M19.90 [facility] [id number] [place] [address] 68134- 3251 Jun, Inflammatory arthritis M19.90 [facility] [id number] [place] [address] 49205- 7918 Jun, Arthritis M19.90 [facility] [address] [place] [address] 20927- 6786 May, 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 ; Rheumatoid arthritis of left hip without organ or system involvement with positive rheumatoid factor M05.752 ; Chest pain, unspecified type R07.9 and Needs smoking cessation education F17.200 [facility] [id number] [place] [address] 27770- 3399 May, [facility] [address] [place] [address] 01648- 3495 May, Arthritis M19.90 [facility] [id number] [place] [address] 84600- 8019 14 May, 2017 Chest pain, unspecified type R07.9 ; Dyspnea on exertion R06.09 ; Claudication of both lower extremities I73.9 ; Hypertension, unspecified type I10 and Tobacco use Z72.0 [place] [id number] [place] [address] 71895- 6756 Apr, Arthritis M19.90 [place] [id number] [place] [address] 95215- 7551 Apr, Arthritis M19.90 [place] [id number] [place] [address] 68850- 1552 Apr, Sinusitis chronic, frontal J32.1 ; Coronary artery disease involving [place] coronary artery of [place] heart with unstable angina pectoris I25.110 ; Arthritis M19.90 and Fibromyalgia M79.7 [place] [id number] [place] [address] 10853- 6534 Apr, Sinusitis chronic, frontal J32.1 ; Coronary artery disease involving [place] coronary artery of [place] heart with unstable angina pectoris I25.110 ; Arthritis M19.90 and Fibromyalgia M79.7 [place] [address] [place] [address] 09622- 4040 Mar, [place] [id number] [place] [address] 29153- 3167 Mar, Arthritis M19.90 [place] [id number] [place] [address] 17844- 6589 Mar, Angina at rest I20.8 [place] [id number] [place] [address] 68147- 3053 Mar, Arthritis M19.90 [place] [id number] [place] [address] 11628- 1476 Mar, [facility] [id number] [place] [address] 50190- 1938 Feb, [facility] [id number] [place] [address] 66918- 7772 Feb, [place] [address] 19376- 6692 Feb, Arthritis M19.90 [facility] [id number] [place] [address] 63086 -3710 Feb, Left foot pain M79.672 and Acute left ankle pain M25.572 [place] [id number] [place] [address] 98900- 1717 Jan, [facility] [id number] [place] [address] 24815 -6769 Jan, Arthritis M19.90 ; Spondylitis, cervical M46.92 ; Fibromyalgia M79.7 and Family history of hypothyroidism Z83.49 [place] [id number] [place] [address] 05409- 6298 Sep, Dental caries K02.9 [place] [id number] [place] [address] 20854- 2795 Aug, Dental examination Z01.20 [place] [id number] [place] [address] 44855- 0042 23 Apr, 2015 Dental examination Z01.20 and Dental caries K02.9 [place] [id number] [place] [address] 64448- 9135 16 Apr, 2015 Dental caries K02.9 [place] [id number] [place] [address] 23063- 4595 08 Apr, 2015 Dental examination Z01.20 IMMUNIZATIONS No Known Immunizations SOCIAL HISTORY Never Assessed REASON FOR VISIT Lab Results PLAN OF CARE VITAL SIGNS MEDICATIONS Unknown [...]
--- OUTSIDE RECORDS SUMMARY | 2018-07-28 09:28 | XMS REPORT ---
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 Active 4838469495461 Problem Claudication of both lower extremities I73.9 Active 96333416 Problem Hypertension, unspecified type I10 Active 86130500 Problem Generalized anxiety disorder F41.1 Active 56398703 Problem Mild episode of recurrent major depressive disorder F33.0 Active 481991614 Problem Needs smoking cessation education F17.200 Active 863611619 Problem 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 Active 267777351 Problem Anxiety F41.9 Active 34849489 Problem Inflammatory arthritis M19.90 Active 1401389 Problem Fibromyalgia M79.7 Active 613260335 Problem Arthritis M19.90 Active 6274037 Problem Angina at rest I20.8 Active 086161289 Problem Spondylitis, cervical M46.92 Active 711515380 Problem Sinusitis chronic, frontal J32.1 Active 05112643 ALLERGIES No Known Allergies ENCOUNTERS Encounter Location Date Diagnosis [facility] [id number] [address] Oct, [facility] [address] [address] Oct, [facility] [id number] [place] [address] 02916- 6300 Oct, [facility] [address] [address] Sep, [facility] [address] [place] [address] 80430- 2549 Sep, Generalized anxiety disorder F41.1 and Mild episode of recurrent major depressive disorder F33.0 [facility] [id number] [place] [address] 33879- 7452 Sep, Spondylitis, cervical M46.92 and Anxiety F41.9 [facility] [id number] [place] [address] 22998- 2405 Sep, [facility] [id number] [place] [address] 78858- 2135 Aug, [facility] [id number] [place] [address] 73477- 6556 Aug, Lesion of nose J34.89 [facility] [id number] [place] [address] 94983- 9420 Aug, Spondylitis, cervical M46.92 ; Fibromyalgia M79.7 and 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 [facility] [id number] [place] [address] 99937- 8575 Aug, Fibromyalgia M79.7 [facility] [id number] [place] [address] 24558- 1562 Aug, Fibromyalgia M79.7 [facility] [id number] [place] [address] 10456- 2438 Aug, [facility] [id number] [place] [address] 82497- 6850 July, [facility] [id number] [place] [address] 25704- 8699 July, [facility] [id number] [place] [address] 68847- 7617 July, Arthritis M19.90 [facility] [id number] [place] [address] 59931- 4828 July, Inflammatory arthritis M19.90 [facility] [id number] [place] [address] 35526- 6908 Jun, Inflammatory arthritis M19.90 [place] [address] [address] Jun, Arthritis M19.90 [address] [address] [place] [address] 43054- 4631 28 May, 2017 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 ; Rheumatoid arthritis of left hip without organ or system involvement with positive rheumatoid factor M05.752 ; Chest pain, unspecified type R07.9 and Needs smoking cessation education F17.200 [place] [id number] [place] [address] 03993- 9871 May, [place] [id number] [place] [address] 46470- 7797 19 May, 2017 Arthritis M19.90 [place] [id number] [place] [address] 27000- 7180 14 May, 2017 Chest pain, unspecified type R07.9 ; Dyspnea on exertion R06.09 ; Claudication of both lower extremities I73.9 ; Hypertension, unspecified type I10 and Tobacco use Z72.0 [place] [address] [place] [address] 05317- 6027 Apr, Arthritis M19.90 [address] [address] [place] [address] 61429- 1481 Apr, Arthritis M19.90 [address] [place] [address] 36903- 4649 12 Apr, 2017 Sinusitis chronic, frontal J32.1 ; 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.110 ; Arthritis M19.90 and Fibromyalgia M79.7 [place] [address] [place] [address] 46963- 4830 09 Apr, 2017 Sinusitis chronic, frontal J32.1 ; 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.110 ; Arthritis M19.90 and Fibromyalgia M79.7 [facility] [id number] [place] [address] 14238- 0461 Mar, [place] [id number] [place] [address] 52151- 1226 Mar, Arthritis M19.90 [facility] [id number] [place] [address] 48822- 1248 Mar, Angina at rest I20.8 [place] [id number] [place] [address] 16613- 1457 Mar, Arthritis M19.90 [place] [address] [address]327- 0372 Mar, [place] [id number] [place] [address] 47609- 7630 Feb, [place] [id number] [place] [address] 32517- 7366 Feb, [place] [id number] [place] [address] 15739- 4515 Feb, Arthritis M19.90 [facility] [id number] [place] [address] 82342 -1523 Feb, Left foot pain M79.672 and Acute left ankle pain M25.572 [place] [id number] [place] [address] 10309- 8875 Jan, [facility] [id number] [place] [address] 96434 -9137 Jan, Arthritis M19.90 ; Spondylitis, cervical M46.92 ; Fibromyalgia M79.7 and Family history of hypothyroidism Z83.49 [facility] [id number] [place] [address] 59019- 7432 Sep, Dental caries K02.9 [place] [id number] [place] [address] 64337- 6452 Aug, Dental examination Z01.20 [facility] [address] [facility] [id number] [place] [address] 23 Apr, 2015 Dental examination Z01.20 and Dental caries K02.9 [facility] [address] [facility] [id number] [address] 16 Apr, 2015 Dental caries K02.9 [place] [facility] [id number] [address] 08 Apr, 2015 Dental examination Z01.20 IMMUNIZATIONS No Known Immunizations SOCIAL HISTORY Never Assessed REASON FOR VISIT Lab f/u wants to discuss RA options, had heart cath yesterday, was released yesterday CBrumbackRN PLAN OF CARE VITAL SIGNS Height 59.5 in 2017-06-11 Weight 104.2 lbs 2017-06-11 Temperature 99.0 degrees Fahrenheit 2017-06-11 Heart Rate 88 bpm 2017-06-11 Respiratory Rate 20 2017-06-11 BMI 20.69 kg/m2 2017-06-11 Blood pressure systolic 132 mmHg 2017-06-11 Blood pressure diastolic 70 mmHg 2017-06-11 MEDICATIONS Medication Instructions Dosage Frequency Start Date End Date Duration Status Xanax XR 1 MG Orally Once a day 1 tablet in the morning 24h Active Levaquin 500 mg Orally Once a day 1 tablet 24h May, Jun, 10 day(s) Active Cymbalta 60 MG Orally Once a day 1 capsule 24h Active Atorvastatin Calcium 20 MG Orally Once a day 1 tablet 24h Active Claritin 10 MG Orally Once a day 1 tablet 24h Active Nitroglycerin 0.4 MG Sublingual prn chest pain. at onset. may repeat q5min, if 3 doses taken, need to report to er. 1 tablet Active Morphine Sulfate ER 60 MG Orally every 12 hrs 1 tablet 12h May, 28 days Active Cymbalta 30 MG Orally Once a day 1 capsule 24h Active Aspirin Childrens 81 MG Orally Once a day 1 tablet 24h Active Oxycodone HCl 10 mg Orally 4 times a day 1 tablet 6h May, 27 days Active RESULTS No Results PROCEDURES No [...]
--- OUTSIDE RECORDS SUMMARY | 2018-07-28 09:28 | XMS REPORT ---
Author Author PARISH HOLMAN Organization [facility] Address [address] [place] [address] Care Team Providers Care Hot [place]ale Worker Name Role Phone PARISH HOLMAN Unavailable PROBLEMS Type Condition ICD9-CM Code [id number] Code Onset Dates Condition Status SNOMED Code Problem Hypertension, unspecified type I10 Active 98934951 Problem 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 Active 235375832 Problem Claudication of both lower extremities I73.9 Active 46415237 Problem Generalized anxiety disorder F41.1 Active 26908208 Problem Mild episode of recurrent major depressive disorder F33.0 Active 890586913 Problem Inflammatory arthritis M19.90 Active 7723687 Problem Needs smoking cessation education F17.200 Active 076966226 Problem Anxiety F41.9 Active 45781169 Problem Basal cell carcinoma of nose C44.311 Active 071311461 Problem Arthritis M19.90 Active 4318543 Problem Angina at rest I20.8 Active 794131489 Problem Spondylitis, cervical M46.92 Active 260639719 Problem Sinusitis chronic, frontal J32.1 Active 37994538 Problem Fibromyalgia M79.7 Active 837029475 Problem Coronary artery disease involving resighini coronary artery of resighini heart with unstable angina pectoris I25.110 Active [id number] ALLERGIES No Information ENCOUNTERS Encounter Location Date Diagnosis [facility] [address] [facility] [id number] [address] Nov, [facility] [id number], [place] [address]- 9924 Nov, [facility] [id number], [place] [address]- 5168 Oct, [facility] [id number], [place] [address]- 2201 Oct, [facility] [id number] [place] [address] 16147- 3673 Oct, [facility] [id number] [place] [address] 33603- 1489 Oct, Spondylitis, cervical M46.92 and Anxiety F41.9 [facility] [id number] [place] [address] 23580- 7631 Oct, Generalized anxiety disorder F41.1 and Mild episode of recurrent major depressive disorder F33.0 [facility] [id number] [place] [address] 72880- 3771 Oct, [facility] [id number] [place] [address] 40630- 7464 Oct, Spondylitis, cervical M46.92 [facility] [id number] [place] [address] 41898- 5679 Oct, [facility] [id number] [place] [address] 59480- 1851 Sep, Basal cell carcinoma of nose C44.311 [id number] [place] [address] 22141- 8622 Sep, Generalized anxiety disorder F41.1 and Mild episode of recurrent major depressive disorder F33.0 [facility] [id number] [place] [address] 29199- 8014 Sep, Spondylitis, cervical M46.92 and Anxiety F41.9 [facility] [id number] [place] [address] 54972- 3300 Sep, [facility] [id number] [place] [address] 12065- 7869 Aug, [facility] [id number] [place] [address] 20448- 8772 Aug, Lesion of nose J34.89 [facility] [id number] [place] [address] 22001- 0182 Aug, Spondylitis, cervical M46.92 ; Fibromyalgia M79.7 and 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 [facility] [id number] [place] [address] 31952- 8016 Aug, Fibromyalgia M79.7 [facility] [id number] [place] [address] 66637- 5337 Aug, Fibromyalgia M79.7 [facility] [id number] [place] [address] 52293- 9838 Aug, [facility] [id number] [place] [address] 75252- 3548 July, [facility] [id number] [place] [address] 64181- 2535 July, [facility] [id number] [place] [address] 36413- 2817 July, Arthritis M19.90 [facility] [id number] [place] [address] 78102- 2377 July, Inflammatory arthritis M19.90 [facility] [id number] [place] [address] 02393- 6567 Jun, Inflammatory arthritis M19.90 [facility] [address] [place] [address] 66990- 7526 Jun, Arthritis M19.90 [facility] [id number] [place] [address] 29085- 7214 May, 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 ; Rheumatoid arthritis of left hip without organ or system involvement with positive rheumatoid factor M05.752 ; Chest pain, unspecified type R07.9 and Needs smoking cessation education F17.200 [facility] [address], [place] [address]- 6688 May, [facility] [id number] [place] [address] 09448- 6202 May, Arthritis M19.90 [facility] [address], [place] [address]- [address] 14 May, 2017 Chest pain, unspecified type R07.9 ; Dyspnea on exertion R06.09 ; Claudication of both lower extremities I73.9 ; Hypertension, unspecified type I10 and Tobacco use Z72.0 [facility] [id number] [place] [address] 57351- 7773 Apr, Arthritis M19.90 [facility] [id number] [place] [address] 00171- 7516 Apr, Arthritis M19.90 [address] [id number] [place] [address] 15584- 7280 12 Apr, 2017 Sinusitis chronic, frontal J32.1 ; Coronary artery disease involving resighini coronary artery of resighini heart with unstable angina pectoris I25.110 ; Arthritis M19.90 and Fibromyalgia M79.7 [facility] [id number] [place] [address] 11174- 7221 09 Apr, 2017 Sinusitis chronic, frontal J32.1 ; Coronary artery disease involving resighini coronary artery of resighini heart with unstable angina pectoris I25.110 ; Arthritis M19.90 and Fibromyalgia M79.7 [place] [address] [place] [address] 40113- 0382 Mar, [place] [address] [place] [address] 68463- 7742 Mar, Arthritis M19.90 [facility] [address] [place] [address] 07207- 2998 Mar, Angina at rest I20.8 [place] [id number] [place] [address] 12312- 0478 Mar, Arthritis M19.90 [facility] [address] [place] [address] 20926- 9185 Mar, [facility] [id number] [place] [address] 59934- 2128 Feb, [place] [id number] [place] [address] 49746- 0811 Feb, [place] [id number] [place] [address] 633382- 3799 Feb, Arthritis M19.90 [facility] [id number] [place] [address] 35879 -6138 Feb, Left foot pain M79.672 and Acute left ankle pain M25.572 [address] [id number] [place] [address] 66233- 8839 Jan, [facility] [place] [address]58 -3494 Jan, Arthritis M19.90 ; Spondylitis, cervical M46.92 ; Fibromyalgia M79.7 and Family history of hypothyroidism Z83.49 [place] [id number] [place] [address] 09834- 1956 Sep, Dental caries K02.9 [place] [id number] [place] [address] 85332- 6554 Aug, Dental examination Z01.20 [place] [id number] [place] [address] 38123- 4573 Apr, Dental examination Z01.20 and Dental caries K02.9 [place] [id number] [place] [address] 29459- 0567 Apr, Dental caries K02.9 [place] [id number] [place] [address] 62038- 1781 Apr, Dental examination Z01.20 IMMUNIZATIONS No Known Immunizations SOCIAL HISTORY Never Assessed REASON FOR VISIT Pain Management Recommendations PLAN OF CARE VITAL SIGNS MEDICATIONS Medication Instructions Dosage Frequency Start Date End Date Duration Status Oxycodone HCl 10 mg Orally 4 times a day 1 tablet 6h July, 28 days Active Morphine Sulfate ER 30 MG Orally every 12 hrs 1 tablet 12h July, Aug, 28 days Active MS Contin 15 mg Orally every 12 hrs / take with 30mg tablets 1 tablet July, Aug, 28 days Active RESULTS No Results [...]
--- OUTSIDE RECORDS SUMMARY | 2018-07-28 09:28 | XMS REPORT ---
Author Author JOSS ABRAMS Organization [facility] Address [address] [place] [address] Care Team Providers Care Cnc Cutting Operator Name Role Phone ALIZA JOSS Unavailable PROBLEMS Type Condition ICD9-CM Code BEM64-BX Code Onset Dates Condition Status SNOMED Code Problem Coronary artery disease involving stock[place] coronary artery of stock[place] heart with unstable angina pectoris I25.110 Active 9796281816177 Problem Claudication of both lower extremities I73.9 Active 22585707 Problem Hypertension, unspecified type I10 Active 96686506 Problem Generalized anxiety disorder F41.1 Active 02170344 Problem Mild episode of recurrent major depressive disorder F33.0 Active 036639320 Problem Needs smoking cessation education F17.200 Active 116481628 Problem 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 Active 440703709 Problem Anxiety F41.9 Active 28990104 Problem Inflammatory arthritis M19.90 Active 4232130 Problem Fibromyalgia M79.7 Active 208726166 Problem Arthritis M19.90 Active 0585826 Problem Angina at rest I20.8 Active 436486003 Problem Spondylitis, cervical M46.92 Active 276777093 Problem Sinusitis chronic, frontal J32.1 Active 01004285 ALLERGIES No Information ENCOUNTERS Encounter Location Date Diagnosis [facility] [id number], [place] [address] Oct, [facility] [address], [place] [address] Oct, [facility] [address] [place] [address] 39890- 7194 Oct, [facility] [address], [place] [address] Sep, [facility] [address] [place] [address] 48527- 1862 Sep, Generalized anxiety disorder F41.1 and Mild episode of recurrent major depressive disorder F33.0 [facility] [id number] [place] [address] 56908- 6302 Sep, Spondylitis, cervical M46.92 and Anxiety F41.9 [facility] [id number] [place] [address] 86230- 1630 Sep, [facility] [id number] [place] [address] 07090- 1574 Aug, [facility] [id number] [place] [address] 39835- 0485 Aug, Lesion of nose J34.89 [facility] [id number] [place] [address] 99961- 8960 Aug, Spondylitis, cervical M46.92 ; Fibromyalgia M79.7 and 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 [facility] [id number] [place] [address] 75814- 2283 Aug, Fibromyalgia M79.7 [facility] [id number] [place] [address] 83819- 9256 Aug, Fibromyalgia M79.7 [facility] [id number] [place] [address] 19088- 7366 Aug, [facility] [id number] [place] [address] 52468- 1720 July, [facility] [id number] [place] [address] 13708- 6511 July, [facility] [id number] [place] [address] 44260- 0465 July, Arthritis M19.90 [facility] [id number] [place] [address] 67132- 0709 July, Inflammatory arthritis M19.90 [facility] [id number] [place] [address] 54660- 7919 Jun, Inflammatory arthritis M19.90 [place] [address] [place] [address] 22309- 0765 Jun, Arthritis M19.90 [place] [id number] [place] [address] 22480- 5459 28 May, 2017 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 ; Rheumatoid arthritis of left hip without organ or system involvement with positive rheumatoid factor M05.752 ; Chest pain, unspecified type R07.9 and Needs smoking cessation education F17.200 [place] [id number] [place] [address] 96895- 7673 May, [place] [id number] [place] [address] 73302- 4517 19 May, 2017 Arthritis M19.90 [place] [id number] [place] [address] 48783- 7699 14 May, 2017 Chest pain, unspecified type R07.9 ; Dyspnea on exertion R06.09 ; Claudication of both lower extremities I73.9 ; Hypertension, unspecified type I10 and Tobacco use Z72.0 [place] [id number] [place] [address] 63742- 6046 Apr, Arthritis M19.90 [place] [id number] [place] [address] 57208- 6925 Apr, Arthritis M19.90 [place] [id number] [place] [address] 05685- 3128 12 Apr, 2017 Sinusitis chronic, frontal J32.1 ; Coronary artery disease involving [place] coronary artery of [place] heart with unstable angina pectoris I25.110 ; Arthritis M19.90 and Fibromyalgia M79.7 [place] [address] [place] [address] 35211- 7836 09 Apr, 2017 Sinusitis chronic, frontal J32.1 ; Coronary artery disease involving [place] coronary artery of [place]bridge heart with unstable angina pectoris I25.110 ; Arthritis M19.90 and Fibromyalgia M79.7 [facility] [id number] [place] [address] 40026- 8432 Mar, [place] [id number] [place] [address] 94327- 4407 Mar, Arthritis M19.90 [facility] [id number] [place] [address] 23039- 1952 Mar, Angina at rest I20.8 [place] [id number] [place] [address] 16360- 3311 Mar, Arthritis M19.90 [place] [address] 46477- 7694 Mar, [place] [id number] [place] [address] 86203- 4936 Feb, [place] [id number] [place] [address] 29241- 9209 Feb, [place] [id number] [place] [address] 77048- 9955 Feb, Arthritis M19.90 [facility] [id number] [place] [address] 78121 -1679 Feb, Left foot pain M79.672 and Acute left ankle pain M25.572 [place] [id number] [place] [address] 10596- 7972 Jan, [facility] [id number] [place] [address] 47016 -6503 Jan, Arthritis M19.90 ; Spondylitis, cervical M46.92 ; Fibromyalgia M79.7 and Family history of hypothyroidism Z83.49 [facility] [id number] [place] [address] 06470- 9500 Sep, Dental caries K02.9 [place] [id number] [place] [address] 07384- 5521 Aug, Dental examination Z01.20 [facility] [address] [facility] [id number] [place] [address] 5209 Apr, Dental examination Z01.20 and Dental caries K02.9 [facility] [address] [facility] [id number] [place] 2399 Apr, Dental caries K02.9 [facility] [address] [facility] [id number] [place] [address] 1872 Apr, Dental examination Z01.20 IMMUNIZATIONS No Known Immunizations SOCIAL HISTORY Never Assessed REASON FOR VISIT ER Notification/Follow up PLAN OF CARE VITAL SIGNS MEDICATIONS Unknown [...]
--- OUTSIDE RECORDS SUMMARY | 2018-07-28 09:28 | XMS REPORT ---
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 Active 092060135 Problem Claudication of both lower extremities I73.9 Active 03166110 Problem Generalized anxiety disorder F41.1 Active 93825251 Problem Mild episode of recurrent major depressive disorder F33.0 Active 343719388 Problem Inflammatory arthritis M19.90 Active 1522270 Problem Needs smoking cessation education F17.200 Active 833436569 Problem Anxiety F41.9 Active 13943420 Problem Basal cell carcinoma of nose C44.311 Active 177635093 Problem Arthritis M19.90 Active 2925728 Problem Angina at rest I20.8 Active 138625640 Problem Spondylitis, cervical M46.92 Active 828966097 Problem Sinusitis chronic, frontal J32.1 Active 40308130 Problem Fibromyalgia M79.7 Active 140163322 Problem Coronary artery disease involving [place] coronary artery of [place] heart with unstable angina pectoris I25.110 Active [id number] ALLERGIES No Information ENCOUNTERS Encounter Location Date Diagnosis [facility] [address] [facility] [id number] [address] 4968 Oct, [facility] [id number], [place] [address]- 3126 Oct, [facility] [id number], [place] [address]- 3382 Oct, [facility] [id number], [place] [address]- 4737 Oct, [facility] [id number] [place] [address] 51414- 8642 Sep, Basal cell carcinoma of nose C44.311 [address] 78979- 7612 Sep, Generalized anxiety disorder F41.1 and Mild episode of recurrent major depressive disorder F33.0 [place] [id number] [place] [address] 20428- 5003 Sep, Spondylitis, cervical M46.92 and Anxiety F41.9 [place] [id number] [place] [address] 53503- 4393 Sep, [place] [address] 90191- 0001 Aug, [place] [address] 33857- 4952 Aug, Lesion of nose J34.89 [place] [id number] [place] [address] 27976- 5963 Aug, Spondylitis, cervical M46.92 ; Fibromyalgia M79.7 and 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 [place] [id number] [place] [address] 03829- 0005 Aug, Fibromyalgia M79.7 [place] [id number] [place] [address] 99214- 6395 Aug, Fibromyalgia M79.7 [place] [id number] [place] [address] 83310- 7906 Aug, [place] [id number] [place] [address] 39980- 7905 July, [place] [id number] [place] [address] 14097- 9657 July, [facility] [id number] [place] [address] 93563- 4489 July, Arthritis M19.90 [place] [id number] [place] [address] 69128- 8321 July, Inflammatory arthritis M19.90 [place] [id number] [place] [address] 42955- 3012 Jun, Inflammatory arthritis M19.90 [place] [id number] [place] [address] 54239- 0381 Jun, Arthritis M19.90 [place] [id number] [place] [address] 13536- 7335 May, 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 ; Rheumatoid arthritis of left hip without organ or system involvement with positive rheumatoid factor M05.752 ; Chest pain, unspecified type R07.9 and Needs smoking cessation education F17.200 [place] [id number] [place] [address] 55513- 0045 May, [place] [id number] [place] [address] 60948- 6205 May, Arthritis M19.90 [place] [id number] [place] [address] 86973- 6791 May, Chest pain, unspecified type R07.9 ; Dyspnea on exertion R06.09 ; Claudication of both lower extremities I73.9 ; Hypertension, unspecified type I10 and Tobacco use Z72.0 [place] [id number] [place] [address] 22704- 8415 Apr, Arthritis M19.90 [place] [id number] [place] [address] 48874- 4502 Apr, Arthritis M19.90 [place] [id number] [place] [address] 83834- 9242 Apr, Sinusitis chronic, frontal J32.1 ; Coronary artery disease involving [place] coronary artery of [place] heart with unstable angina pectoris I25.110 ; Arthritis M19.90 and Fibromyalgia M79.7 [place] [id number] [place] [address] 68758- 7302 Apr, Sinusitis chronic, frontal J32.1 ; Coronary artery disease involving [place] coronary artery of [place] heart with unstable angina pectoris I25.110 ; Arthritis M19.90 and Fibromyalgia M79.7 [place] [id number] [place] [address] 33616- 4481 Mar, [place] [address] 13681- 9537 Mar, Arthritis M19.90 [place] [address] 63530- 7569 Mar, Angina at rest I20.8 [place] [id number] [place] [address] 04280- 3650 Mar, Arthritis M19.90 [place] [address] 78447- 4584 Mar, [place] [id number] [place] [address] 52464- 9012 Feb, [place] [address] 94929- 6650 Feb, [place] [id number] [place] [address] 95046- 5494 Feb, Arthritis M19.90 [facility] [id number] [place] [address] 53343 -1646 Feb, Left foot pain M79.672 and Acute left ankle pain M25.572 [place] [address] 68126- 0914 Jan, [facility] [id number] [place] [address] 97606 -8664 Jan, Arthritis M19.90 ; Spondylitis, cervical M46.92 ; Fibromyalgia M79.7 and Family history of hypothyroidism Z83.49 [place] [id number] [address]- 6596 Sep, Dental caries K02.9 [place] [id number], [place] [address]- 7768 Aug, Dental examination Z01.20 [place] [id number], [place] [address]- 3347 23 Apr, 2015 Dental examination Z01.20 and Dental caries K02.9 [place] [address], [place] [address]- 7465 Apr, Dental caries K02.9 [place] [address], [place] [address]- 3889 08 Apr, 2015 Dental examination Z01.20 IMMUNIZATIONS No Known Immunizations SOCIAL HISTORY Never Assessed REASON FOR VISIT Controlled med refill 07/01/17 PLAN OF CARE VITAL SIGNS MEDICATIONS Medication Instructions Dosage Frequency Start Date End Date Duration Status Oxycodone HCl 10 mg Orally 4 times a day 1 tablet 6h Jun, 28 days Active Morphine Sulfate ER 60 MG Orally every 12 hrs 1 tablet 12h Jun, 28 days Active RESULTS No Results PROCEDURES [...]
--- OUTSIDE RECORDS SUMMARY | 2018-07-28 09:28 | XMS REPORT ---
Author Author PARISH HOLMAN Organization [facility] Address [address] 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 Active 958583090 Problem Claudication of both lower extremities I73.9 Active 86287648 Problem Generalized anxiety disorder F41.1 Active 69329443 Problem Mild episode of recurrent major depressive disorder F33.0 Active 056963333 Problem Inflammatory arthritis M19.90 Active 4837885 Problem Needs smoking cessation education F17.200 Active 910160845 Problem Anxiety F41.9 Active 36698194 Problem Basal cell carcinoma of nose C44.311 Active 735319867 Problem Arthritis M19.90 Active 8267778 Problem Angina at rest I20.8 Active 767710502 Problem Spondylitis, cervical M46.92 Active 595485207 Problem Sinusitis chronic, frontal J32.1 Active 96983455 Problem Fibromyalgia M79.7 Active 431105693 Problem Coronary artery disease involving [place] coronary artery of [place] heart with unstable angina pectoris I25.110 Active 6032207203523 ALLERGIES No Information ENCOUNTERS Encounter Location Date Diagnosis [facility] [address] [facility] [id number] [address]- 3788 Oct, [facility] [id number] [address]- 0950 Oct, [facility] [address] [address]- 3088 Oct, [facility] [id number] [address]- 4608 Oct, [place] [id number] [place] [address] 98235- 3012 Sep, Basal cell carcinoma of nose C44.311 [place] [id number] [place] [address] 55539- 2452 Sep, Generalized anxiety disorder F41.1 and Mild episode of recurrent major depressive disorder F33.0 [place] [address] 38842- 9521 Sep, Spondylitis, cervical M46.92 and Anxiety F41.9 [place] [id number] [place] [address] 15128- 2085 Sep, [place] [address] 46605- 9308 Aug, [place] [address] 41115- 0015 Aug, Lesion of nose J34.89 [place] [id number] [place] [address] 47614- 7764 Aug, Spondylitis, cervical M46.92 ; Fibromyalgia M79.7 and 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 [place] [id number] [place] [address] 40458- 4245 Aug, Fibromyalgia M79.7 [place] [id number] [place] [address] 75315- 8615 Aug, Fibromyalgia M79.7 [place] [id number] [place] [address] 98206- 3630 Aug, [place] [id number] [place] [address] 74938- 4957 July, [place] [id number] [place] [address] 58262- 0455 July, [place] [id number] [place] [address] 04096- 3127 July, Arthritis M19.90 [facility] [address] [place] [address] 04795- 7112 July, Inflammatory arthritis M19.90 [facility] [id number] [place] [address] 88471- 2590 Jun, Inflammatory arthritis M19.90 [facility] [id number] [place] [address] 65348- 5882 Jun, Arthritis M19.90 [facility] [id number] [place] [address] 06818- 0267 May, 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 ; Rheumatoid arthritis of left hip without organ or system involvement with positive rheumatoid factor M05.752 ; Chest pain, unspecified type R07.9 and Needs smoking cessation education F17.200 [place] [id number] [place] [address] 40256- 4486 May, [place] [id number] [place] [address] 78609- 5418 May, Arthritis M19.90 [place] [address] [place] [address] 52381- 7130 May, Chest pain, unspecified type R07.9 ; Dyspnea on exertion R06.09 ; Claudication of both lower extremities I73.9 ; Hypertension, unspecified type I10 and Tobacco use Z72.0 [place] [address] [place] [address] 72512- 9971 Apr, Arthritis M19.90 [place] [address] [place] [address] 14038- 7158 Apr, Arthritis M19.90 [place] [id number] [place] [address] 26629- 5021 Apr, Sinusitis chronic, frontal J32.1 ; Coronary artery disease involving [place] coronary artery of [place] heart with unstable angina pectoris I25.110 ; Arthritis M19.90 and Fibromyalgia M79.7 [place] [address] [place] [address] 80066- 1323 Apr, Sinusitis chronic, frontal J32.1 ; Coronary artery disease involving [place] coronary artery of [place] heart with unstable angina pectoris I25.110 ; Arthritis M19.90 and Fibromyalgia M79.7 [place] [id number] [place] [address] 42276- 2109 Mar, [place] [address] 33792- 4680 Mar, Arthritis M19.90 [place] [address] 06533- 6049 Mar, Angina at rest I20.8 [place] [id number] [place] [address] 47673- 1550 Mar, Arthritis M19.90 [place] [address] 27358- 2814 Mar, [place] [id number] [place] [address] 58146- 2475 Feb, [place] [id number] [place] [address] 48920- 2189 Feb, [place] [id number] [place] [address] 23670- 3062 Feb, Arthritis M19.90 [facility] [id number] [place] [address] 83242 -2059 Feb, Left foot pain M79.672 and Acute left ankle pain M25.572 [place] [address] 98268- 3393 Jan, [facility] [id number] [place] [address] 66721 -1357 Jan, Arthritis M19.90 ; Spondylitis, cervical M46.92 ; Fibromyalgia M79.7 and Family history of hypothyroidism Z83.49 [place] [address] [facility] [id number] [place] [address]- 3424 Sep, Dental caries K02.9 [place] [address] [address]- 0460 Aug, Dental examination Z01.20 [place] [address] [address]- 3000 23 Apr, 2015 Dental examination Z01.20 and Dental caries K02.9 [place] [id number] [address]- 4216 16 Apr, 2015 Dental caries K02.9 [place] [address] [address]- 0728 08 Apr, 2015 Dental examination Z01.20 IMMUNIZATIONS No Known Immunizations SOCIAL HISTORY Never Assessed REASON FOR VISIT Lab (walk-in)--[facility] PLAN OF CARE VITAL SIGNS MEDICATIONS Unknown Medications RESULTS No Results PROCEDURES Procedure Date Ordered Result Body Site LIPID PANEL July 15, 2017 COMPREHEN METABOLIC PANEL July 15, 2017 VENIPUNCT, ROUTINE* July 15, 2017 RBC SED RATE, AUTOMATED July 15, 2017 ASSAY OF BLOOD/URIC ACID July 15, 2017 ANTINUCLEAR ANTIBODIES July 15, 2017 CCP ANTIBODY July 15, 2017 INSTRUCTIONS MEDICATIONS ADMINISTERED No Known Medications [...]
--- OUTSIDE RECORDS SUMMARY | 2018-07-28 09:29 | XMS REPORT ---
Author Author JOSS ABRAMS Organization [facility] Address [address] [place] [address] Care Team Providers Care Automatic Corn Grinder Operator Name Role Phone ALIZA JOSS Unavailable PROBLEMS Type Condition ICD9-CM Code [id number] Code Onset Dates Condition Status SNOMED Code Problem Arthritis M19.90 Active 8149549 Problem Sinusitis chronic, frontal J32.1 Active 34181144 Problem Angina at rest I20.8 Active 258470891 Problem Spondylitis, cervical M46.92 Active 274263903 Problem Fibromyalgia M79.7 Active 993405377 Problem Inflammatory arthritis M19.90 Active 8003287 Problem Needs smoking cessation education F17.200 Active 388485232 Problem Hypertension, unspecified type I10 Active 28897442 Problem Coronary artery disease involving [place] coronary artery of [place] heart with unstable angina pectoris I25.110 Active 5798784568304 Problem 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 Active 799747361 Problem Claudication of both lower extremities I73.9 Active 65825081 ALLERGIES No Information ENCOUNTERS Encounter Location Date Diagnosis [place] [id number] [place] [address] 74190- 6158 Aug, [place] [id number] [place] [address] 07471- 0990 Aug, Lesion of nose J34.89 [place] [id number] [place] [address] 59828- 4419 Aug, Spondylitis, cervical M46.92 ; Fibromyalgia M79.7 and 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 [place] [id number] [place] [address] 70757- 2944 Aug, Fibromyalgia M79.7 [place] [id number] [place] [address] 21187- 5172 Aug, Fibromyalgia M79.7 [facility] [address] [address] 7288 Aug, [facility] [address] [address] 7144 July, [facility] [address] [address] 8093 July, [facility] [address] [place] [address] 83770- 9924 July, Arthritis M19.90 [facility] [address] [place] [address] 13086- 2738 July, Inflammatory arthritis M19.90 [facility] [address] [address] 2099 Jun, Inflammatory arthritis M19.90 [place] [address] [address] 2445 Jun, Arthritis M19.90 [facility] [address] [address] 0725 May, 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 ; Rheumatoid arthritis of left hip without organ or system involvement with positive rheumatoid factor M05.752 ; Chest pain, unspecified type R07.9 and Needs smoking cessation education F17.200 [place] [address] [address] 6[address] May, [facility] [id number] [address]- 2832 May, Arthritis M19.90 [facility] [address] [address] 3126 May, Chest pain, unspecified type R07.9 ; Dyspnea on exertion R06.09 ; Claudication of both lower extremities I73.9 ; Hypertension, unspecified type I10 and Tobacco use Z72.0 [place] [address] [address] 2436 Apr, Arthritis M19.90 [facility] [id number] [place] [address] 00417 2546 Apr, Arthritis M19.90 [facility] [address] [address] 2546 Apr, Sinusitis chronic, frontal J32.1 ; Coronary artery disease involving [place] coronary artery of [place] heart with unstable angina pectoris I25.110 ; Arthritis M19.90 and Fibromyalgia M79.7 [facility] [address] [facility] [id number] [address] 2546 Apr, Sinusitis chronic, frontal J32.1 ; Coronary artery disease involving [place] coronary artery of [place] heart with unstable angina pectoris I25.110 ; Arthritis M19.90 and Fibromyalgia M79.7 [facility] [address] [address] 2546 Mar, [facility] [address] [address] 2546 Mar, Arthritis M19.90 [facility] [address] [place] [address] 99052 2546 Mar, Angina at rest I20.8 [facility] [address] [address] 2546 Mar, Arthritis M19.90 [facility] [address] [address] 2546 Mar, [facility] [address] [address] 2546 Feb, [facility] [address] [address] 2546 Feb, [facility] [address] [address]- 3476 Feb, Arthritis M19.90 [facility] [address] [address] Feb, Left foot pain M79.672 and Acute left ankle pain M25.572 [place] [id number] [place] [address] 81667- 7214 09 Jan, 2017 [facility] [id number] [place] [address] 51273 -8713 08 Jan, 2017 Arthritis M19.90 ; Spondylitis, cervical M46.92 ; Fibromyalgia M79.7 and Family history of hypothyroidism Z83.49 [place] [id number] [place] [address] 41361- 7098 Sep, Dental caries K02.9 [place] [id number] [place] [address] 30353- 2996 Aug, Dental examination Z01.20 [place] [address] [address]- 9700 23 Apr, 2015 Dental examination Z01.20 and Dental caries K02.9 [place] [id number] [place] [address] 65024- 7544 Apr, Dental caries K02.9 [place] [id number] [place] [address] 26162- 5453 08 Apr, 2015 Dental examination Z01.20 IMMUNIZATIONS No Known Immunizations SOCIAL HISTORY Never Assessed REASON FOR VISIT Lab (walk-in) PLAN OF CARE VITAL SIGNS MEDICATIONS Unknown Medications RESULTS No Results PROCEDURES Procedure Date Ordered Result Body Site COMPLETE CBC W/AUTO DIFF WBC Apr 28, 2017 COMPREHEN METABOLIC PANEL Apr 28, 2017 VENIPUNCT, ROUTINE* Apr 28, 2017 RHEUMATOID FACTOR, QUANT Apr 28, 2017 INSTRUCTIONS MEDICATIONS ADMINISTERED No Known Medications MEDICAL (GENERAL) HISTORY Type Description Date Medical History Pneumonia Medical History Back and neck pain Medical History fibromyalgia Medical History Severe OA Surgical History Heart Cath no stents needed 05/2017 Hospitalization History Chest Pain observation 2013 Hospitalization History Cervical Surgery 1998
--- OUTSIDE RECORDS SUMMARY | 2018-07-28 09:29 | XMS REPORT ---
Author Author JOSS ABRAMS Organization [facility] Address [address] [place] [address] Care Team Providers Care Courtesy Car Driver Name Role Phone ALIZA JOSS Unavailable PROBLEMS Type Condition ICD9-CM Code QCU41-QY Code Onset Dates Condition Status SNOMED Code Problem Arthritis M19.90 Active 8857609 Problem Sinusitis chronic, frontal J32.1 Active 29299992 Problem Angina at rest I20.8 Active 495803834 Problem Spondylitis, cervical M46.92 Active 825406557 Problem Fibromyalgia M79.7 Active 143012829 Problem Inflammatory arthritis M19.90 Active 0073582 Problem Needs smoking cessation education F17.200 Active 346645218 Problem Hypertension, unspecified type I10 Active 12122664 Problem Coronary artery 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 [place] heart with unstable angina pectoris I25.110 Active 0945470228967 Problem 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 Active 051438137 Problem Claudication of both lower extremities I73.9 Active 98254495 ALLERGIES No Information ENCOUNTERS Encounter Location Date Diagnosis [place] [id number] [place] [address] 27916- 5307 Aug, [facility] [id number] [place] [address] 83141- 3108 Aug, Fibromyalgia M79.7 [facility] [id number] [place] [address] 85037- 7975 Aug, Fibromyalgia M79.7 [facility] [id number] [place] [address] 05961- 5292 Aug, [facility] [id number] [place] [address] 45214- 0892 July, [facility] [address] 15482- 6780 July, [facility] [address], [place] [address]- 7452 July, Arthritis M19.90 [facility] [address], [place] [address]- 8156 July, Inflammatory arthritis M19.90 [facility] [address] [place] [address] 34887- 8759 Jun, Inflammatory arthritis M19.90 [facility] [address] [place] [address] 20803- 5774 Jun, Arthritis M19.90 [facility] [address] [place] [address] 52499- 7695 May, 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 ; Rheumatoid arthritis of left hip without organ or system involvement with positive rheumatoid factor M05.752 ; Chest pain, unspecified type R07.9 and Needs smoking cessation education F17.200 [facility] [address], [place] [address]- 1097 May, [facility] [address] [place] [address] 89312- 2851 May, Arthritis M19.90 [facility] [address], [place] [address]- 0018 May, Chest pain, unspecified type R07.9 ; Dyspnea on exertion R06.09 ; Claudication of both lower extremities I73.9 ; Hypertension, unspecified type I10 and Tobacco use Z72.0 [facility] [address], [place] [address]- 5630 Apr, Arthritis M19.90 [facility] [address], [place] [address]- 5143 Apr, Arthritis M19.90 [facility] [address] [place] [address] 20291- 1037 Apr, Sinusitis chronic, frontal J32.1 ; Coronary artery 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 [place] heart with unstable angina pectoris I25.110 ; Arthritis M19.90 and Fibromyalgia M79.7 [facility] [id number] [place] [address] 43310- 4883 09 Apr, 2017 Sinusitis chronic, frontal J32.1 ; Coronary artery 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 [place] heart with unstable angina pectoris I25.110 ; Arthritis M19.90 and Fibromyalgia M79.7 [facility] [id number] [place] [address] 03975- 0229 Mar, [facility] [id number] [place] [address] 61130- 6122 Mar, Arthritis M19.90 [facility] [id number] [place] [address] 87031- 2918 Mar, Angina at rest I20.8 [facility] [id number] [place] [address] 80097- 8932 Mar, Arthritis M19.90 [facility] [id number] [place] [address] 88064- 9311 Mar, [facility] [id number] [place] [address] 73943- 8598 Feb, [facility] [id number] [place] [address] 95029- 5012 Feb, [facility] [id number] [place] [address] 01716- 8560 Feb, Arthritis M19.90 [facility] [id number] [place] [address] 05708 -7137 Feb, Left foot pain M79.672 and Acute left ankle pain M25.572 [facility] [id number] [place] [address] 07687- 9345 Jan, [facility] [id number] [place] [address] 92259 -5232 Jan, Arthritis M19.90 ; Spondylitis, cervical M46.92 ; Fibromyalgia M79.7 and Family history of hypothyroidism Z83.49 [place] [address] [place] [address] 90903- 4651 Sep, Dental caries K02.9 [place] [id number] [place] [address] 99872- 2964 Aug, Dental examination Z01.20 [place] [id number] [place] [address] 29081- 1574 Apr, Dental examination Z01.20 and Dental caries K02.9 [place] [id number] [place] [address] 37748- 9343 Apr, Dental caries K02.9 [place] [address] [place] [address] 79143- 8920 Apr, Dental examination Z01.20 IMMUNIZATIONS No Known Immunizations SOCIAL HISTORY Never Assessed REASON FOR VISIT Controlled Med Refill Due 03/21/17 PLAN OF CARE VITAL SIGNS MEDICATIONS Medication Instructions Dosage Frequency Start Date End Date Duration Status Oxycodone HCl 10 MG Orally 3 times a day 1 tablet as needed 8h Mar, 28 days Active RESULTS No Results PROCEDURES No Known procedures INSTRUCTIONS MEDICATIONS ADMINISTERED No Known Medications MEDICAL (GENERAL) HISTORY Type Description Date Medical History Pneumonia Medical History Back and neck pain Medical History fibromyalgia Medical History RA Surgical History Heart Cath no stents needed 05/2017 Hospitalization History Chest Pain observation 2013 Hospitalization History Cervical Surgery 1998
--- OUTSIDE RECORDS SUMMARY | 2018-07-28 09:29 | XMS REPORT ---
Author Author JOSS ABRAMS Organization [facility] Address [address] [place] [address] Care Team Providers Care Instructional Technology Specialist Name Role Phone JOSS ABRAMS Unavailable PROBLEMS Type Condition ICD9-CM Code SPX57-GO Code Onset Dates Condition Status SNOMED Code Problem Arthritis M19.90 Active 0624717 Problem Sinusitis chronic, frontal J32.1 Active 45973113 Problem Angina at rest I20.8 Active 182963985 Problem Spondylitis, cervical M46.92 Active 487604216 Problem Fibromyalgia M79.7 Active 165098961 Problem Inflammatory arthritis M19.90 Active 6305652 Problem Needs smoking cessation education F17.200 Active 431676782 Problem Hypertension, unspecified type I10 Active 86708257 Problem Coronary artery disease involving [place] 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 I25.110 Active 5645220182729 Problem 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 [place] [address] 64309- 1230 Aug, Fibromyalgia M79.7 [facility] [address], [place] [address]- 5975 Aug, Fibromyalgia M79.7 [facility] [address], [place] [address]- 8632 Aug, [facility] [address], [place] [address]- 7600 July, [facility] [address] [place] [address] 84971- 5121 July, [facility] [address] [place] [address] 25088- 8473 July, Arthritis M19.90 [facility] [address] [place] [address] 80381- 2697 July, Inflammatory arthritis M19.90 [facility] [address] [place] [address] 34581- 6295 Jun, Inflammatory arthritis M19.90 [facility] [address], [place] [address]- 7075 Jun, Arthritis M19.90 [facility] [address], [place] [address]- 8653 May, 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 ; Rheumatoid arthritis of left hip without organ or system involvement with positive rheumatoid factor M05.752 ; Chest pain, unspecified type R07.9 and Needs smoking cessation education F17.200 [facility] [address], [place] [address]- 1856 May, [facility] [address], [place] [address]- 0224 May, Arthritis M19.90 [facility] [address] [address]- 5613 May, Chest pain, unspecified type R07.9 ; Dyspnea on exertion R06.09 ; Claudication of both lower extremities I73.9 ; Hypertension, unspecified type I10 and Tobacco use Z72.0 [facility] [id number] [place] [address] 26659- 3761 Apr, Arthritis M19.90 [facility] [address] [place] [address] 86241- 2567 Apr, Arthritis M19.90 [facility] [id number] [place] [address] 44085- 7376 Apr, Sinusitis chronic, frontal J32.1 ; Coronary artery disease involving [place] 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 I25.110 ; Arthritis M19.90 and Fibromyalgia M79.7 [facility] [id number] [place] [address] 63494- 1601 Apr, Sinusitis chronic, frontal J32.1 ; Coronary artery disease involving [place] 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 I25.110 ; Arthritis M19.90 and Fibromyalgia M79.7 [facility] [address] [place] [address] 44496- 7971 Mar, [facility] [id number] [place] [address] 21707- 5327 Mar, Arthritis M19.90 [facility] [id number] [place] [address] 85378- 7316 Mar, Angina at rest I20.8 [facility] [address] [place] [address] 20618- 9521 Mar, Arthritis M19.90 [facility] [address] [place] [address] 31683- 6486 Mar, [facility] [address] [place] [address] 64573- 0712 Feb, [facility] [address], [place] [address]- 9176 Feb, [facility] [id number] [place] [address] 34787- 0952 Feb, Arthritis M19.90 [facility] [id number] [place] [address] 05584 -2967 Feb, Left foot pain M79.672 and Acute left ankle pain M25.572 [place] [address] 15179- 0354 Jan, [facility] [address] 67331 -6306 Jan, Arthritis M19.90 ; Spondylitis, cervical M46.92 ; Fibromyalgia M79.7 and Family history of hypothyroidism Z83.49 [place] [address] 22387- 1340 Sep, Dental caries K02.9 [place] [address] 12198- 5435 Aug, Dental examination Z01.20 [place] [address] 55656- 8281 Apr, Dental examination Z01.20 and Dental caries K02.9 [place] [id number] [place] [address] 75938- 8826 Apr, Dental caries K02.9 [place] [id number] [place] [address] 73223- 5486 08 Apr, 2015 Dental examination Z01.20 IMMUNIZATIONS No Known Immunizations SOCIAL HISTORY Never Assessed REASON FOR VISIT Oxycodone resend 05/07 PLAN OF CARE VITAL SIGNS MEDICATIONS Medication Instructions Dosage Frequency Start Date End Date Duration Status Oxycodone HCl 10 mg Orally 4 times a day 1 tablet 6h Apr, 28 days Active RESULTS No Results PROCEDURES [...]
--- OUTSIDE RECORDS SUMMARY | 2018-07-28 09:29 | XMS REPORT ---
Author Author BARRIE YUNG Organization [facility] Address [address] [place] [address] Care Team Providers Care Medical Assistant Secretary Name Role Phone BARRIE YUNG Unavailable PROBLEMS Type Condition ICD9-CM Code ASP93-JD Code Onset Dates Condition Status SNOMED Code Problem Arthritis M19.90 Active 6713179 Problem Sinusitis chronic, frontal J32.1 Active 33706685 Problem Angina at rest I20.8 Active 934799582 Problem Spondylitis, cervical M46.92 Active 427763808 Problem Fibromyalgia M79.7 Active 907709883 Problem Inflammatory arthritis M19.90 Active 6368304 Problem Needs smoking cessation education F17.200 Active 660710923 Problem Hypertension, unspecified type I10 Active 79754146 Problem 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.110 Active 9556500521975 Problem 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 Active 854888410 Problem Claudication of both lower extremities I73.9 Active 28267153 ALLERGIES No Information ENCOUNTERS Encounter Location Date Diagnosis [place] [address], [place] [address] Oct, [place] [address] [place] [id number] [place] [address] 09553- 8535 Aug, [place] [address] [place] [id number] [place] [address] 97540- 4902 Aug, Lesion of nose J34.89 [place] [address] [place] [id number] [place] [address] 68491- 6415 Aug, Spondylitis, cervical M46.92 ; Fibromyalgia M79.7 and 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 [place] [address] [place] [id number] [place] [address] 96051- 1661 Aug, Fibromyalgia M79.7 [facility] [address], [place] [address] 288[address] Aug, Fibromyalgia M79.7 [facility] [address], [place] [address] Aug, [facility] [address], [place] [address] 47[address] July, [facility] [address], [place] [address] July, [facility] [address] [place] [address] 41301- 3151 July, Arthritis M19.90 [facility] [address], [place] [address] July, Inflammatory arthritis M19.90 [facility] [address] [place] [id number], [place] [address] 37[address] Jun, Inflammatory arthritis M19.90 [facility] [address], [place] [address] 2609 Jun, Arthritis M19.90 [facility] [address], [place] [address] 60[address] May, 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 ; Rheumatoid arthritis of left hip without organ or system involvement with positive rheumatoid factor M05.752 ; Chest pain, unspecified type R07.9 and Needs smoking cessation education F17.200 [facility] [address], [place] [address] May, [facility] [address] [id number] [address] 5[address] May, Arthritis M19.90 [facility] [address], [place] [address] May, Chest pain, unspecified type R07.9 ; Dyspnea on exertion R06.09 ; Claudication of both lower extremities I73.9 ; Hypertension, unspecified type I10 and Tobacco use Z72.0 [facility] [address] [place] [id number] [place] [address] 72197- 6786 Apr, Arthritis M19.90 [facility] [address] [id number] [place] [address] 05368- 6189 16 Apr, 2017 Arthritis M19.90 [facility] [address] [id number] [place] [address] 18587- 8791 Apr, Sinusitis chronic, frontal J32.1 ; 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.110 ; Arthritis M19.90 and Fibromyalgia M79.7 [facility] [address] [place] [id number] [place] [address] 69748- 3886 09 Apr, 2017 Sinusitis chronic, frontal J32.1 ; 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.110 ; Arthritis M19.90 and Fibromyalgia M79.7 [facility] [id number] [place] [address] 71957- 4566 Mar, [facility] [address] [place] [id number] [place] [address] 29868- 5246 Mar, Arthritis M19.90 [facility] [address] [place] [id number] [place] [address] 56525- 6628 Mar, Angina at rest I20.8 [facility] [address] [id number] [place] [address] 65481- 5653 Mar, Arthritis M19.90 [facility] [address] [id number] [place] [address] 84568- 5606 Mar, [facility] [address] [id number] [place] [address] 24204- 5090 Feb, [facility] [address] [place] [id number] [place] [address] 05635- 8712 Feb, [place] [address] [place] [id number] [place] [address] 83068- 9116 Feb, Arthritis M19.90 [facility] [place] [address] [place] [address] [id number] [place] [address] 81489 -3103 Feb, Left foot pain M79.672 and Acute left ankle pain M25.572 [place] [address] [address]- 5329 Jan, [facility] [address] [place] [id number] [place] [address] 32029 -2774 Jan, Arthritis M19.90 ; Spondylitis, cervical M46.92 ; Fibromyalgia M79.7 and Family history of hypothyroidism Z83.49 [place] [address] [place] [id number] [place] [address] 69161- 7791 Sep, Dental caries K02.[address] [address]- 6091 Aug, Dental examination Z01.[address] 58147- 0666 Apr, Dental examination Z01.20 and Dental caries K02.9 [place] [address] [place] [id number] [place] [address] 00297- 4729 Apr, Dental caries K02.9 [place] [id number] [place] [address] 25222- 6733 Apr, Dental examination Z01.20 IMMUNIZATIONS No Known Immunizations SOCIAL HISTORY Never Assessed REASON FOR VISIT Controlled Med Refill 05/06/17 PLAN OF CARE VITAL SIGNS MEDICATIONS Medication Instructions Dosage Frequency Start Date End Date Duration Status Morphine Sulfate ER 60 MG Orally every 12 hrs 1 tablet 12h Apr, 28 days Active Oxycodone HCl 10 mg [...]
--- OUTSIDE RECORDS SUMMARY | 2018-07-28 09:29 | XMS REPORT ---
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.110 Active 6140162093387 Problem Claudication of both lower extremities I73.9 Active 75275485 Problem Hypertension, unspecified type I10 Active 38593279 Problem Generalized anxiety disorder F41.1 Active 57404162 Problem Mild episode of recurrent major depressive disorder F33.0 Active 613915880 Problem Needs smoking cessation education F17.200 Active 437946742 Problem 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 Active 439424223 Problem Anxiety F41.9 Active 86895190 Problem Inflammatory arthritis M19.90 Active 5307925 Problem Fibromyalgia M79.7 Active 309084880 Problem Arthritis M19.90 Active 0331098 Problem Angina at rest I20.8 Active 576400567 Problem Spondylitis, cervical M46.92 Active 766699372 Problem Sinusitis chronic, frontal J32.1 Active 65196762 ALLERGIES No Information ENCOUNTERS Encounter Location Date Diagnosis [facility] [address] [id number] [address] Oct, [facility] [address], [place] [address]- 3607 Oct, [facility] [address], [place] [address]- 4738 Oct, [facility] [address] [place] [address] [id number] [address]- 5597 Sep, [facility] [id number] [place] [address] 66468- 6672 Sep, Generalized anxiety disorder F41.1 and Mild episode of recurrent major depressive disorder F33.0 [facility] [address] [place] [id number] [place] [address] 26225- 7602 Sep, Spondylitis, cervical M46.92 and Anxiety F41.9 [facility] [address] [place] [id number] [place] [address] 29809- 2540 Sep, [facility] [address] [place] [address] [id number] [place] [address] 75023- 6181 Aug, [facility] [address] [place] [id number] [place] [address] 34021- 6825 Aug, Lesion of nose J34.89 [facility] [address] [place] [id number] [place] [address] 23349- 9981 Aug, Spondylitis, cervical M46.92 ; Fibromyalgia M79.7 and 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 [facility] [address] [place] [address] [id number] [place] [address] 73971- 2119 Aug, Fibromyalgia M79.7 [facility] [address] [place] [id number] [place] [address] 36941- 7820 Aug, Fibromyalgia M79.7 [facility] [address] [place] [address] [id number] [place] [address] 89526- 2662 Aug, [facility] [address] [place] [address] [id number] [place] [address] 20191- 5993 July, [facility] [address] [place] [address] [id number] [place] [address] 95420- 0385 July, [facility] [address] [place] [address] [id number] [place] [address] 37087- 9077 July, Arthritis M19.90 [facility] [address] [place] [address] [id number] [place] [address] 47637- 8989 July, Inflammatory arthritis M19.90 [facility] [address] [place] [address] [id number] [place] [address] 93355- 8521 Jun, Inflammatory arthritis M19.90 [place] [address] [place] [address] 93288- 5756 Jun, Arthritis M19.90 [place] [address] [place] [address] 24013- 2825 28 May, 2017 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 ; Rheumatoid arthritis of left hip without organ or system involvement with positive rheumatoid factor M05.752 ; Chest pain, unspecified type R07.9 and Needs smoking cessation education F17.200 [place] [address] [place] [address] [id number] [place] [address] 91279- 3862 May, [place] [address] [place] [id number] [place] [address] 57694- 8632 May, Arthritis M19.90 [place] [address] [place] [address] [id number] [place] [address] 02224- 0709 14 May, 2017 Chest pain, unspecified type R07.9 ; Dyspnea on exertion R06.09 ; Claudication of both lower extremities I73.9 ; Hypertension, unspecified type I10 and Tobacco use Z72.0 [place] [address] [place] [address] 02241- 0364 Apr, Arthritis M19.90 [place] [address] [place] [address] 18804- 3085 Apr, Arthritis M19.90 [place] [address] [place] [id number] [place] [address] 16690- 4637 12 Apr, 2017 Sinusitis chronic, frontal J32.1 ; Coronary artery disease 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 [place] heart with unstable angina pectoris I25.110 ; Arthritis M19.90 and Fibromyalgia M79.7 [place] [address] [place] [address] 50125- 7129 09 Apr, 2017 Sinusitis chronic, frontal J32.1 ; Coronary artery disease 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 [place] heart with unstable angina pectoris I25.110 ; Arthritis M19.90 and Fibromyalgia M79.7 [facility] [address] [place] [address] [id number] [place] [address] 43174- 8276 Mar, [facility] [address] 06126- 7592 Mar, Arthritis M19.90 [facility] [address] 25501- 5206 Mar, Angina at rest I20.8 [place] [address] 43976- 6640 Mar, Arthritis M19.90 [place] [address] 53889- 6868 Mar, [place] [address] 72428- 0811 Feb, [facility] [address] 79998- 8435 Feb, [facility] [address] 55879- 3247 Feb, Arthritis M19.90 [facility] [address] [place] [address] [id number] [place] [address] 58250 -6389 Feb, Left foot pain M79.672 and Acute left ankle pain M25.572 [place] [address] 39808- 6019 Jan, [facility] [address] [place] [id number] [place] [address] 62221 -5363 Jan, Arthritis M19.90 ; Spondylitis, cervical M46.92 ; Fibromyalgia M79.7 and Family history of hypothyroidism Z83.49 [facility] [address] [place] [id number] [place] [address] 74633- 9000 Sep, Dental caries K02.9 [facility] [address] 67922- 8942 Aug, Dental examination Z01.20 [facility] [address] [facility] [id number] [place] [address]- 0538 Apr, Dental examination Z01.20 and Dental caries K02.9 [facility] [address] [facility] [id number] [place] [address]- 2954 Apr, Dental caries K02.9 [facility] [address] [facility] [id number] [address]- 3171 Apr, Dental examination Z01.20 IMMUNIZATIONS No Known Immunizations SOCIAL HISTORY Never Assessed REASON FOR VISIT Controlled Med Refill 06/03 PLAN OF CARE VITAL SIGNS MEDICATIONS Medication Instructions Dosage Frequency Start Date End Date Duration Status Oxycodone HCl 10 mg Orally 4 times a day 1 tablet 6h May, 27 days Active Morphine Sulfate ER 60 MG Orally every 12 hrs 1 tablet 12h May, 28 days Active RESULTS No Results PROCEDURES [...]
--- OUTSIDE RECORDS SUMMARY | 2018-07-28 09:29 | XMS REPORT ---
Author Author BARRIE YUNG Organization [facility] Address [address] [place] [address] Care Team Providers Care Automotive Service Assistant Name Role Phone BARRIE YUNG Unavailable PROBLEMS Type Condition ICD9-CM Code YLR21-QU Code Onset Dates Condition Status SNOMED Code Problem Arthritis M19.90 Active 5964107 Problem Sinusitis chronic, frontal J32.1 Active 14837100 Problem Angina at rest I20.8 Active 292542798 Problem Spondylitis, cervical M46.92 Active 152750420 Problem Fibromyalgia M79.7 Active 234458486 Problem Inflammatory arthritis M19.90 Active 1591574 Problem Needs smoking cessation education F17.200 Active 779320827 Problem Hypertension, unspecified type I10 Active 29865390 Problem 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 [address], [place] [address] Aug, [facility] [address] [address] 3052 July, [facility] [address] [place] [address] 85673- 4719 July, [facility] [address] [id number] [place] [address] 04846- 8437 July, Ar[address]ritis M19.90 [facility] [address], [place] [address]- 7764 July, Inflammatory arthritis M19.90 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 ; Rheumatoid arthritis of left hip without organ or system involvement with positive rheumatoid factor M05.752 ; Chest pain, unspecified type R07.9 and Needs smoking cessation education F17.200 [place] [address] 41677- 8483 May, [place] [address] [place] [id number] [place] [address] 77954- 7364 May, Arthritis M19.90 [place] [address] 50746- 4177 14 May, 2017 Chest pain, unspecified type R07.9 ; Dyspnea on exertion R06.09 ; Claudication of both lower extremities I73.9 ; Hypertension, unspecified type I10 and Tobacco use Z72.0 [place] [address] [place] [address] [id number] [place] [address] 24004- 0329 Apr, Arthritis M19.90 [place] [address] [place] [id number] [place] [address] 25856- 1890 Apr, Arthritis M19.90 [place] [address] [place] [id number] [place] [address] 46173- 7055 12 Apr, 2017 Sinusitis chronic, frontal J32.1 ; Coronary artery disease involving [place] coronary artery of [place] heart with unstable angina pectoris I25.110 ; Arthritis M19.90 and Fibromyalgia M79.7 [place] [address] [place] [id number] [place] [address] 01372- 1426 09 Apr, 2017 Sinusitis chronic, frontal J32.1 ; Coronary artery disease involving [place] coronary artery of [place] heart with unstable angina pectoris I25.110 ; Arthritis M19.[address] [facility] [address] [place] [id number] [place] [address] 04105- 0866 Mar, [facility] [address] [place] [id number] [place] [address] 27776- 5113 Mar, Ar[address]ritis M19.90 [facility] [address] [place] [id number] [place] [address] 79391- 2820 Mar, Angina at rest I20.8 [place] [address] 59931- 2014 Mar, Arthritis M19.90 [place] [address] 79330- 4660 Mar, [facility] [address] 17872- 5164 Feb, [facility] [address] 13813- 8815 Feb, [facility] [address] [place] [id number] [place] [address] 84789- 1056 Feb, Arthritis M19.90 [facility] [address] [id number] [place] [address] 04169 -8631 Feb, Left foot pain M79.672 and Acute left ankle pain M25.572 [place] [address] [place] [id number] [place] [address] 04680- 2279 Jan, [facility] [address] [place] [id number] [place] [address] 25618 -6960 Jan, Arthritis M19.90 ; Spondylitis, cervical M46.92 ; Fibromyalgia M79.7 and Family history of hypothyroidism Z83.49 [facility] [address] [id number] [place] [address] 25883- 6731 Sep, Dental caries K02.9 [facility] [address] 71455- 8056 Aug, Dental examination Z01.20 [facility] [address] [facility] [id number] [address]- 1006 Apr, Dental examination Z01.20 and Dental caries K02.9 [facility] [address] [facility] [id number] [place] [address]- 0583 Apr, Dental caries K02.9 [facility] [address] [facility] [id number] [address] [address]237 Apr, Dental examination Z01.20 IMMUNIZATIONS No Known Immunizations SOCIAL HISTORY Never Assessed REASON FOR VISIT medication PLAN OF CARE VITAL SIGNS MEDICATIONS Medication Instructions Dosage Frequency Start Date End Date Duration Status Morphine Sulfate ER 60 MG Orally every 12 hrs 1 tablet 12h Feb, 28 days Active RESULTS No Results [...]
--- OUTSIDE RECORDS SUMMARY | 2018-07-28 09:30 | XMS REPORT ---
Author Author JOSS ABRAMS Organization [facility] Address [address] [place] [address] Care Team Providers Care Dietitian Consultant Name Role Phone ALIZA JOSS Unavailable PROBLEMS Type Condition ICD9-CM Code SNN11-NG Code Onset Dates Condition Status SNOMED Code Problem Arthritis M19.90 Active 3981084 Problem Sinusitis chronic, frontal J32.1 Active 11461884 Problem Angina at rest I20.8 Active 620735210 Problem Spondylitis, cervical M46.92 Active 556911659 Problem Fibromyalgia M79.7 Active 482097939 Problem Inflammatory arthritis M19.90 Active 6696868 Problem Needs smoking cessation education F17.200 Active 813344492 Problem Hypertension, unspecified type I10 Active 39537175 Problem Coronary artery disease involving [place] coronary artery of [place] heart with unstable angina pectoris I25.110 Active 5227858428269 Problem 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 Active 555216030 Problem Claudication of both lower extremities I73.9 Active 68175032 ALLERGIES No Information ENCOUNTERS Encounter Location Date Diagnosis [place] [id number] [place] [address] 52822- 2258 Aug, [facility] [id number] [place] [address] 13070- 8360 July, [facility] [id number] [place] [address] 03313- 1464 July, [facility] [id number] [place] [address] 55292- 1933 July, Arthritis M19.90 [facility] [address] [place] [address] 82789- 7318 July, Inflammatory arthritis M19.90 [facility] [id number] [place] [address] 97999- 0263 Jun, Inflammatory arthritis M19.90 [place] [address] [place] [address] 14112- 5692 Jun, Arthritis M19.90 [place] [address] [place] [address] 90304- 3411 28 May, 2017 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 ; Rheumatoid arthritis of left hip without organ or system involvement with positive rheumatoid factor M05.752 ; Chest pain, unspecified type R07.9 and Needs smoking cessation education F17.200 [place] [id number] [place] [address] 83157- 5801 May, [place] [id number] [place] [address] 54496- 2917 19 May, 2017 Arthritis M19.90 [place] [id number] [place] [address] 55897- 5263 14 May, 2017 Chest pain, unspecified type R07.9 ; Dyspnea on exertion R06.09 ; Claudication of both lower extremities I73.9 ; Hypertension, unspecified type I10 and Tobacco use Z72.0 [place] [address] [place] [address] 79871- 1278 21 Apr, 2017 Arthritis M19.90 [place] [address] [place] [address] 40330- 9684 Apr, Arthritis M19.90 [place] [address] [place] [address] 74545- 7918 12 Apr, 2017 Sinusitis chronic, frontal J32.1 ; Coronary artery disease involving [place] coronary artery of [place] heart with unstable angina pectoris I25.110 ; Arthritis M19.90 and Fibromyalgia M79.7 [place] [address] [address] 0626 09 Apr, 2017 Sinusitis chronic, frontal J32.1 ; Coronary artery disease involving [place] coronary artery of [place] heart with unstable angina pectoris I25.110 ; Arthritis M19.90 and Fibromyalgia M79.7 [facility] [id number] [place] [address] 46464- 8233 Mar, [facility] [id number] [place] [address] 58844- 7167 Mar, Arthritis M19.90 [facility] [address] 05643- 3491 Mar, Angina at rest I20.8 [place] [address] 15731- 6243 Mar, Arthritis M19.90 [place] [address] 44155- 3231 Mar, [place] [address] 29380- 3940 Feb, [place] [address] 22792- 8263 Feb, [place] [id number] [place] [address] 90689- 3124 Feb, Arthritis M19.90 [facility] [id number] [place] [address] 38633 -1734 Feb, Left foot pain M79.672 and Acute left ankle pain M25.572 [place] [id number] [place] [address] 69956- 9055 Jan, [facility] [id number] [place] [address] 01965 -5920 Jan, Arthritis M19.90 ; Spondylitis, cervical M46.92 ; Fibromyalgia M79.7 and Family history of hypothyroidism Z83.49 [facility] [id number] [place] [address] 31684- 3039 Sep, Dental caries K02.9 [facility] [address] 76635- 8787 Aug, Dental examination Z01.20 [facility] [address] [facility] [id number] [place] [address] 0671 Apr, Dental examination Z01.20 and Dental caries K02.9 [facility] [address] [facility] [id number] [place] [address]- 9745 Apr, Dental caries K02.9 [facility] [address] [facility] [id number] [address] 8001 Apr, Dental examination Z01.20 IMMUNIZATIONS No Known Immunizations SOCIAL HISTORY Never Assessed REASON FOR VISIT Requests return call PLAN OF CARE VITAL SIGNS MEDICATIONS Medication Instructions Dosage Frequency Start Date End Date Duration Status Oxycodone HCl 10 mg Orally 3 times a day 1 tablet as needed 8h Feb, Active RESULTS No Results PROCEDURES No Known procedures INSTRUCTIONS MEDICATIONS ADMINISTERED No Known Medications MEDICAL (GENERAL) HISTORY Type Description Date Medical History Pneumonia Medical History Back and neck pain Medical History fibromyalgia Medical History RA Surgical History Heart Cath no stents needed 05/2017 Hospitalization History Chest Pain observation 2013 Hospitalization History Cervical Surgery 1997
--- OUTSIDE RECORDS SUMMARY | 2018-07-28 09:30 | XMS REPORT ---
Author Author JOSS ABRAMS Organization [facility] [place] Address [address] [place] [address] Care Team Providers Care Hand Plate Stacker Name Role Phone ALIZA JOSS Unavailable PROBLEMS Type Condition ICD9-CM Code HEU78-SC Code Onset Dates Condition Status SNOMED Code Problem Arthritis M19.90 Active 1271813 Problem Sinusitis chronic, frontal J32.1 Active 36396670 Problem Angina at rest I20.8 Active 224992324 Problem Spondylitis, cervical M46.92 Active 009618127 Problem Fibromyalgia M79.7 Active 329809446 Problem Inflammatory arthritis M19.90 Active 9872070 Problem Needs smoking cessation education F17.200 Active 920399681 Problem Hypertension, unspecified type I10 Active 37368455 Problem 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.110 Active 5198104581529 Problem 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 Active 621748697 Problem Claudication of both lower extremities I73.9 Active 11554068 ALLERGIES No Information ENCOUNTERS Encounter Location Date Diagnosis [place] [id number] [place] [address] 92652- 1464 Aug, [place] [id number] [place] [address] 50478- 0067 Aug, Lesion of nose J34.89 [place] [id number] [place] [address] 04604- 5968 Aug, Spondylitis, cervical M46.92 ; Fibromyalgia M79.7 and 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 [place] [id number] [place] [address] 64158- 2015 Aug, Fibromyalgia M79.7 [place] [id number] [place] [address] 17569- 9298 Aug, Fibromyalgia M79.7 [facility] [place] [address] [address]- 2173 Aug, [facility] [place] [address] [address]- 0435 July, [facility] [place] [address] [address]- 6947 July, [facility] [place] [address] [place] [address] 98022- 4598 July, Arthritis M19.90 [facility] [place] [address] [place] [address] 28084- 7036 July, Inflammatory arthritis M19.90 [facility] [place] [address] [address]- 9734 Jun, Inflammatory arthritis M19.90 [place] [address] [address]- 8968 Jun, Arthritis M19.90 [facility] [place] [address] [address]- 2280 May, 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 ; Rheumatoid arthritis of left hip without organ or system involvement with positive rheumatoid factor M05.752 ; Chest pain, unspecified type R07.9 and Needs smoking cessation education F17.200 [place] [address] [address]- 8795 May, [facility] [place] [address] [place] [id number] [address]- 9425 May, Arthritis M19.90 [facility] [place] [address] [address]- 7761 May, Chest pain, unspecified type R07.9 ; Dyspnea on exertion R06.09 ; Claudication of both lower extremities I73.9 ; Hypertension, unspecified type I10 and Tobacco use Z72.0 [place] [address] [address]- 0136 Apr, Arthritis M19.90 [facility] [place] [id number] [place] [address] 99701 2546 Apr, Arthritis M19.90 [facility] [place] [address] [address] 2546 Apr, Sinusitis chronic, frontal J32.1 ; 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.110 ; Arthritis M19.90 and Fibromyalgia M79.7 [facility] [place] [address] [facility] [id number] [address] 2546 Apr, Sinusitis chronic, frontal J32.1 ; 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.110 ; Arthritis M19.90 and Fibromyalgia M79.7 [facility] [place] [address] [address] 2546 Mar, [facility] [place] [address] [address] 2546 Mar, Arthritis M19.90 [facility] [place] [address] [place] [address] 79510 2546 Mar, Angina at rest I20.8 [facility] [place] [address] [address] 2546 Mar, Arthritis M19.90 [facility] [place] [address] [address] 2546 Mar, [facility] [place] [address] [address] 2546 Feb, [facility] [place] [address] [address] 2546 Feb, [facility] [place] [address] [address]- 3096 Feb, Arthritis M19.90 [facility] [address] [place] [address] 47833 -2029 Feb, Left foot pain M79.672 and Acute left ankle pain M25.572 [place] [id number] [place] [address] 67399- 8818 Jan, [facility] [id number] [place] [address] 34891 -6960 Jan, Arthritis M19.90 ; Spondylitis, cervical M46.92 ; Fibromyalgia M79.7 and Family history of hypothyroidism Z83.49 [place] [id number] [place] [address] 65382- 9603 Sep, Dental caries K02.9 [place] [id number] [place] [address] 72780- 8463 Aug, Dental examination Z01.20 [place] [id number] [place] [address] 93115- 3648 Apr, Dental examination Z01.20 and Dental caries K02.9 [place] [id number] [place] [address] 37459- 6621 Apr, Dental caries K02.9 [place] [id number] [place] [address] 04906- 0368 08 Apr, 2015 Dental examination Z01.20 IMMUNIZATIONS No Known Immunizations SOCIAL HISTORY Never Assessed REASON FOR VISIT requesting return call PLAN OF CARE VITAL SIGNS [...]
--- OUTSIDE RECORDS SUMMARY | 2018-07-28 09:30 | XMS REPORT ---
Author Author JOSS ABRAMS Organization [facility] Address [address] [place] [address] Care Team Providers Care Surgical Processor Name Role Phone ALIZA JOSS Unavailable PROBLEMS Type Condition ICD9-CM Code EJU39-EX Code Onset Dates Condition Status SNOMED Code Problem Arthritis M19.90 Active 6331030 Problem Sinusitis chronic, frontal J32.1 Active 61824874 Problem Angina at rest I20.8 Active 167206967 Problem Spondylitis, cervical M46.92 Active 684335108 Problem Fibromyalgia M79.7 Active 248320758 Problem Inflammatory arthritis M19.90 Active 7731328 Problem Needs smoking cessation education F17.200 Active 756062048 Problem Hypertension, unspecified type I10 Active 92778345 Problem 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.110 Active 3426017566017 Problem 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 Active 056947987 Problem Claudication of both lower extremities I73.9 Active 91130596 ALLERGIES No Information ENCOUNTERS Encounter Location Date Diagnosis [place] [id number] [place] [address] 14262- 5684 Aug, [facility] [id number] [place] [address] 47310- 4788 Aug, Fibromyalgia M79.7 [facility] [id number] [place] [address] 38988- 6803 Aug, Fibromyalgia M79.7 [facility] [id number] [place] [address] 41798- 0270 Aug, [facility] [id number] [place] [address] 32495- 9176 July, [facility] [address] 30704- 3160 July, [facility] [address], [place] [address]- 6540 July, Arthritis M19.90 [facility] [address], [place] [address]- 2702 July, Inflammatory arthritis M19.90 [facility] [address] [place] [address] 85770- 6861 Jun, Inflammatory arthritis M19.90 [facility] [address] [place] [address] 68221- 3100 Jun, Arthritis M19.90 [facility] [address] [place] [address] 17926- 6484 May, 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 ; Rheumatoid arthritis of left hip without organ or system involvement with positive rheumatoid factor M05.752 ; Chest pain, unspecified type R07.9 and Needs smoking cessation education F17.200 [facility] [address], [place] [address]- 9399 May, [facility] [address] [place] [address] 97781- 5149 May, Arthritis M19.90 [facility] [address], [place] [address]- 9580 May, Chest pain, unspecified type R07.9 ; Dyspnea on exertion R06.09 ; Claudication of both lower extremities I73.9 ; Hypertension, unspecified type I10 and Tobacco use Z72.0 [facility] [address], [place] [address]- 8879 Apr, Arthritis M19.90 [facility] [address], [place] [address]- 8773 Apr, Arthritis M19.90 [facility] [address] [place] [address] 82230- 8523 Apr, Sinusitis chronic, frontal J32.1 ; 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.110 ; Arthritis M19.90 and Fibromyalgia M79.7 [facility] [id number] [place] [address] 91108- 4148 09 Apr, 2017 Sinusitis chronic, frontal J32.1 ; 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.110 ; Arthritis M19.90 and Fibromyalgia M79.7 [facility] [id number] [place] [address] 84467- 4549 Mar, [facility] [id number] [place] [address] 16217- 6142 Mar, Arthritis M19.90 [facility] [id number] [place] [address] 80038- 1539 Mar, Angina at rest I20.8 [facility] [id number] [place] [address] 81464- 0255 Mar, Arthritis M19.90 [facility] [id number] [place] [address] 69539- 1821 Mar, [facility] [id number] [place] [address] 93950- 9571 Feb, [facility] [id number] [place] [address] 46687- 6428 Feb, [facility] [id number] [place] [address] 16091- 5907 Feb, Arthritis M19.90 [facility] [id number] [place] [address] 27912 -9653 Feb, Left foot pain M79.672 and Acute left ankle pain M25.572 [facility] [id number] [place] [address] 15568- 2283 Jan, [facility] [id number] [place] [address] 72412 -7680 Jan, Arthritis M19.90 ; Spondylitis, cervical M46.92 ; Fibromyalgia M79.7 and Family history of hypothyroidism Z83.49 [place] [address] [place] [address] 58580- 7966 Sep, Dental caries K02.9 [place] [id number] [place] [address] 44855- 0235 Aug, Dental examination Z01.20 [place] [address] 96794- 5423 23 Apr, 2015 Dental examination Z01.20 and Dental caries K02.9 [place] [id number] [place] [address] 55349- 8917 16 Apr, 2015 Dental caries K02.9 [place] [id number] [place] [address] 17828- 1679 08 Apr, 2015 Dental examination Z01.20 IMMUNIZATIONS [...]
--- OUTSIDE RECORDS SUMMARY | 2018-07-28 09:30 | XMS REPORT ---
Author Author JOSS ABRAMS Organization [facility] Address [address] [place] [address] Care Team Providers Care Ux Specialist Name Role Phone ALIZA JOSS Unavailable PROBLEMS Type Condition ICD9-CM Code DZE27-IA Code Onset Dates Condition Status SNOMED Code Problem Arthritis M19.90 Active 4050130 Problem Sinusitis chronic, frontal J32.1 Active 25643012 Problem Angina at rest I20.8 Active 730343471 Problem Spondylitis, cervical M46.92 Active 325463325 Problem Fibromyalgia M79.7 Active 093920834 Problem Inflammatory arthritis M19.90 Active 3762923 Problem Needs smoking cessation education F17.200 Active 142242863 Problem Hypertension, unspecified type I10 Active 89954582 Problem 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.110 Active 4142920759868 Problem 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 Active 536186622 Problem Claudication of both lower extremities I73.9 Active 86147576 ALLERGIES No Information ENCOUNTERS Encounter Location Date Diagnosis [place] [id number] [place] [address] 71284- 6968 Aug, [facility] [id number] [place] [address] 54729- 4648 July, [facility] [address] [place] [address] 31416- 5405 July, [facility] [id number] [place] [address] 48423- 5265 July, Arthritis M19.90 [facility] [address] [place] [address] 39430- 9291 July, Inflammatory arthritis M19.90 [facility] [id number] [place] [address] 87127- 9815 Jun, Inflammatory arthritis M19.90 [place] [address] [place] [address] 78887- 5319 Jun, Arthritis M19.90 [place] [address] [place] [address] 01329- 8646 28 May, 2017 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 ; Rheumatoid arthritis of left hip without organ or system involvement with positive rheumatoid factor M05.752 ; Chest pain, unspecified type R07.9 and Needs smoking cessation education F17.200 [place] [id number] [place] [address] 35963- 5614 May, [place] [id number] [place] [address] 28809- 5503 19 May, 2017 Arthritis M19.90 [place] [id number] [place] [address] 86476- 8756 14 May, 2017 Chest pain, unspecified type R07.9 ; Dyspnea on exertion R06.09 ; Claudication of both lower extremities I73.9 ; Hypertension, unspecified type I10 and Tobacco use Z72.0 [place] [address] [place] [address] 01927- 3098 21 Apr, 2017 Arthritis M19.90 [place] [address] [place] [address] 54694- 3674 Apr, Arthritis M19.90 [place] [address] [place] [address] 09111- 5049 12 Apr, 2017 Sinusitis chronic, frontal J32.1 ; 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.110 ; Arthritis M19.90 and Fibromyalgia M79.7 [place] [address] [address] 09 Apr, 2017 Sinusitis chronic, frontal J32.1 ; 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.110 ; Arthritis M19.90 and Fibromyalgia M79.7 [facility] [id number] [place] [address] 19167- 8225 Mar, [facility] [id number] [place] [address] 59273- 9695 Mar, Arthritis M19.90 [facility] [address] 02951- 6984 Mar, Angina at rest I20.8 [place] [address] 89555- 4392 Mar, Arthritis M19.90 [place] [address] 16689- 3123 Mar, [place] [address] 71257- 7459 Feb, [place] [address] 64079- 2588 Feb, [place] [id number] [place] [address] 88157- 1029 Feb, Arthritis M19.90 [facility] [id number] [place] [address] 29204 -7243 Feb, Left foot pain M79.672 and Acute left ankle pain M25.572 [place] [id number] [place] [address] 79085- 5628 Jan, [facility] [id number] [place] [address] 36767 -3922 Jan, Arthritis M19.90 ; Spondylitis, cervical M46.92 ; Fibromyalgia M79.7 and Family history of hypothyroidism Z83.49 [facility] [id number] [place] [address] 63356- 7056 Sep, Dental caries K02.9 [facility] [address] 10563- 7591 Aug, Dental examination Z01.20 [facility] [address] [facility] [id number] [place] [address] 7767 23 Apr, 2015 Dental examination Z01.20 and Dental caries K02.9 [facility] [address] [facility] [id number] [place] [address]- 8428 16 Apr, 2015 Dental caries K02.9 [facility] [address] [facility] [id number] [address] 9622 08 Apr, 2015 Dental examination Z01.20 IMMUNIZATIONS No Known Immunizations SOCIAL HISTORY Never Assessed REASON FOR VISIT Controlled Refill Request PLAN OF CARE VITAL SIGNS MEDICATIONS Medication Instructions Dosage Frequency Start Date End Date Duration Status Morphine Sulfate ER 60 mg Orally every 12 hrs 1 capsule 12h Feb, Active RESULTS No Results PROCEDURES No Known procedures INSTRUCTIONS MEDICATIONS ADMINISTERED No Known Medications MEDICAL (GENERAL) HISTORY Type Description Date Medical History Pneumonia Medical History Back and neck pain Medical History fibromyalgia Medical History RA Surgical History Heart Cath no stents needed 05/2017 Hospitalization History Chest Pain observation 2013 Hospitalization History Cervical Surgery 1998
--- OUTSIDE RECORDS SUMMARY | 2018-07-28 09:30 | XMS REPORT ---
Author Author JOSS ABRAMS Organization [facility] Address [address] [place] [address] Care Team Providers Care Sr Risk Management Consultant Name Role Phone ALIZA JOSS Unavailable PROBLEMS Type Condition ICD9-CM Code BXA04-AS Code Onset Dates Condition Status SNOMED Code Problem Arthritis M19.90 Active 4932898 Problem Sinusitis chronic, frontal J32.1 Active 69285092 Problem Angina at rest I20.8 Active 534972298 Problem Spondylitis, cervical M46.92 Active 259895471 Problem Fibromyalgia M79.7 Active 170906485 Problem Inflammatory arthritis M19.90 Active 1732886 Problem Needs smoking cessation education F17.200 Active 967019626 Problem Hypertension, unspecified type I10 Active 79913556 Problem Coronary artery disease involving [place] coronary artery of [place] heart with unstable angina pectoris I25.110 Active 3659692899384 Problem 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 Active 447401266 Problem Claudication of both lower extremities I73.9 Active 83350959 ALLERGIES No Information ENCOUNTERS Encounter Location Date Diagnosis [place] [id number] [place] [address] 09109- 5661 Aug, [place] [address] [id number] [place] [address] 17621- 3207 Aug, Lesion of nose J34.89 [place] [id number] [place] [address] 64565- 3774 Aug, Spondylitis, cervical M46.92 ; Fibromyalgia M79.7 and 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 [place] [id number] [place] [address] 44988- 6367 Aug, Fibromyalgia M79.7 [place] [address] [id number] [place] [address] 32441- 1308 Aug, Fibromyalgia M79.7 [facility] [address], [place] [address]- 3500 Aug, [facility] [address], [place] [address]- 7028 July, [facility] [address], [place] [address]- 9258 July, [facility] [address] [place] [address] 71016- 8336 July, Arthritis M19.90 [facility] [address] [place] [address] 70245- 0948 July, Inflammatory arthritis M19.90 [facility] [address], [place] [address]- 6485 Jun, Inflammatory arthritis M19.90 [place] [address], [place] [address]- 4508 Jun, Arthritis M19.90 [facility] [address], [place] [address]- 1757 May, 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 ; Rheumatoid arthritis of left hip without organ or system involvement with positive rheumatoid factor M05.752 ; Chest pain, unspecified type R07.9 and Needs smoking cessation education F17.200 [place] [address], [place] [address]- 0338 May, [facility] [address] [place] [id number] [address]- 4291 May, Arthritis M19.90 [facility] [address], [place] [address]- 0830 May, Chest pain, unspecified type R07.9 ; Dyspnea on exertion R06.09 ; Claudication of both lower extremities I73.9 ; Hypertension, unspecified type I10 and Tobacco use Z72.0 [place] [address], [place] [address]- 8426 Apr, Arthritis M19.90 [facility] [id number] [place] [address] 51283 2546 Apr, Arthritis M19.90 [facility] [address], [place] [address] 2546 Apr, Sinusitis chronic, frontal J32.1 ; Coronary artery disease involving [place] coronary artery of [place] heart with unstable angina pectoris I25.110 ; Arthritis M19.90 and Fibromyalgia M79.7 [facility] [address] [facility] [id number] [address] 2546 Apr, Sinusitis chronic, frontal J32.1 ; Coronary artery disease involving [place] coronary artery of [place] heart with unstable angina pectoris I25.110 ; Arthritis M19.90 and Fibromyalgia M79.7 [facility] [address], [place] [address] 2546 Mar, [facility] [address], [place] [address] 2546 Mar, Arthritis M19.90 [facility] [address] [place] [address] 50940 2546 Mar, Angina at rest I20.8 [facility] [address], [place] [address] 2546 Mar, Arthritis M19.90 [facility] [address], [place] [address] 2546 Mar, [facility] [address], [place] [address] 2546 Feb, [facility] [address], [place] [address] 2546 Feb, [facility] [address], [place] [address]- 7856 Feb, Arthritis M19.90 [facility] [address], [place] [address] -9674 Feb, Left foot pain M79.672 and Acute left ankle pain M25.572 [place] [address] [id number] [place] [address] 53508- 0103 09 Jan, 2017 [facility] [id number] [place] [address] 39613 -7317 Jan, Arthritis M19.90 ; Spondylitis, cervical M46.92 ; Fibromyalgia M79.7 and Family history of hypothyroidism Z83.49 [place] [id number] [place] [address] 63427- 8618 Sep, Dental caries K02.9 [place] [address] [id number] [place] [address] 38938- 8371 Aug, Dental examination Z01.20 [place] [address] [id number] [place] [address] 06030- 8374 Apr, Dental examination Z01.20 and Dental caries K02.9 [place] [address] [id number] [place] [address] 92097- 0718 Apr, Dental caries K02.9 [place] [address] [id number] [place] [address] 00465- 3764 08 Apr, 2015 Dental examination Z01.20 IMMUNIZATIONS No Known Immunizations SOCIAL HISTORY Never Assessed REASON FOR VISIT medication refill PLAN OF CARE VITAL SIGNS MEDICATIONS Medication Instructions Dosage Frequency Start Date End Date Duration Status Oxycodone HCl 10 mg Orally 4 times a day 1 tablet 6h Mar, Apr, 28 days Active Morphine Sulfate ER 60 MG Orally every 12 hrs 1 tablet 12h Mar, 28 days Active RESULTS No Results [...]
--- OUTSIDE RECORDS SUMMARY | 2018-07-28 09:30 | XMS REPORT ---
Author Author MELISSA RAMIREZ [facility] Address [address] [place] [address] Care Team Providers Care Mapping Specialist Name Role Phone MELISSA RAMIREZ Unavailable PROBLEMS Type Condition ICD9-CM Code GQW98-AN Code Onset Dates Condition Status SNOMED Code Problem Arthritis M19.90 Active 5055722 Problem Sinusitis chronic, frontal J32.1 Active 91359022 Problem Angina at rest I20.8 Active 086773924 Problem Spondylitis, cervical M46.92 Active 454439159 Problem Fibromyalgia M79.7 Active 392508967 Problem Inflammatory arthritis M19.90 Active 4659906 Problem Needs smoking cessation education F17.200 Active 709457161 Problem Hypertension, unspecified type I10 Active 89741492 Problem Coronary artery disease involving [place] coronary artery of [place] heart with unstable angina pectoris I25.110 Active 9420482079936 Problem 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 Active 346431173 Problem Claudication of both lower extremities I73.9 Active 87109422 ALLERGIES No Known Allergies ENCOUNTERS Encounter Location Date Diagnosis [facility] [id number] [address] 9765 Aug, [facility] [address] [place] [address] 36359- 4199 July, [facility] [address], [place] [address]- 5561 July, [facility] [address] [place] [address] 29887- 5221 July, Arthritis M19.90 [facility] [id number] [address]- 6154 July, Inflammatory arthritis M19.90 [facility] [id number] [address]- 3272 Jun, Inflammatory arthritis M19.90 [place] [id number] [place] [address] 38586- 0661 Jun, Arthritis M19.90 [place] [id number] [place] [address] 51401- 9381 28 May, 2017 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 ; Rheumatoid arthritis of left hip without organ or system involvement with positive rheumatoid factor M05.752 ; Chest pain, unspecified type R07.9 and Needs smoking cessation education F17.200 [place] [id number] [place] [address] 77960- 4759 May, [place] [id number] [place] [address] 15035- 5675 May, Arthritis M19.90 [place] [id number] [place] [address] 66065- 0435 14 May, 2017 Chest pain, unspecified type R07.9 ; Dyspnea on exertion R06.09 ; Claudication of both lower extremities I73.9 ; Hypertension, unspecified type I10 and Tobacco use Z72.0 [place] [id number] [place] [address] 32700- 4298 Apr, Arthritis M19.90 [place] [id number] [place] [address] 96876- 2312 Apr, Arthritis M19.90 [place] [id number] [place] [address] 63614- 1768 Apr, Sinusitis chronic, frontal J32.1 ; Coronary artery disease involving [place] coronary artery of [place] heart with unstable angina pectoris I25.110 ; Arthritis M19.90 and Fibromyalgia M79.7 [place] [address] [place] [address] 58948- 1699 09 Apr, 2017 Sinusitis chronic, frontal J32.1 ; Coronary artery disease involving [place] coronary artery of [place] heart with unstable angina pectoris I25.110 ; Arthritis M19.90 and Fibromyalgia M79.7 [place] [id number] [place] [address] 61697- 7532 Mar, [facility] [id number] [place] [address] 83772- 5180 Mar, Arthritis M19.90 [facility] [address] 41008- 6354 Mar, Angina at rest I20.8 [place] [address] 58732- 0754 Mar, Arthritis M19.90 [place] [address] 47920- 1444 Mar, [facility] [address] 66654- 3462 Feb, [facility] [address] 12424- 5764 Feb, [facility] [id number] [place] [address] 32260- 6928 Feb, Arthritis M19.90 [facility] [address] 86023 -8442 Feb, Left foot pain M79.672 and Acute left ankle pain M25.572 [facility] [address] 13305- 6711 Jan, [facility] [id number] [place] [address] 97866 -2292 Jan, Arthritis M19.90 ; Spondylitis, cervical M46.92 ; Fibromyalgia M79.7 and Family history of hypothyroidism Z83.49 [facility] [address] 62606- 7363 Sep, Dental caries K02.9 [facility] [address] [place] [address]- 0547 Aug, Dental examination Z01.20 [facility] [id number], [place] [address]- 8674 Apr, Dental examination Z01.20 and Dental caries K02.9 [facility] [id number], [place] [address]- 0653 Apr, Dental caries K02.9 [place] [id number], [place] [address]- 7969 Apr, Dental examination Z01.20 IMMUNIZATIONS No Known Immunizations SOCIAL HISTORY Never Assessed REASON FOR VISIT left ankle pain. also the op of her foot hurts. pt twisted her ankle friday after she fell. this am she tripped over an animal and reinjured it. did ambulate into the [facility]...but is limping. [email or web address] PLAN OF CARE Activity Details Follow Up prn Reason: VITAL SIGNS Height 59.5 in 2017-02-14 Weight 103.6 lbs 2017-02-14 Temperature 98.7 degrees Fahrenheit 2017-02-14 Heart Rate 74 bpm 2017-02-14 Respiratory Rate 20 2017-02-14 BMI 20.57 kg/m2 2017-02-14 Blood pressure systolic 136 mmHg 2017-02-14 Blood pressure diastolic 84 mmHg 2017-02-14 MEDICATIONS Medication Instructions Dosage Frequency Start Date End Date Duration Status Cymbalta 30 MG Orally Twice a day 1 capsule 12h Active Neurontin 300 MG Orally Three times a day 1 capsule 8h Jan, Not-Taking Cymbalta 60 MG Orally Once a day 1 capsule 24h Active Amoxicillin 500 MG Orally 4 times daily 1 capsule 7 days Not- Taking Xanax XR 1 MG Orally Once a day 1 tablet in the morning 24h Active Oxycodone HCl 10 mg Orally 3 times a day 1 tablet as needed 8h Jan, Active Percocet Not-Taking Xanax Not-Taking Morphine Sulfate ER 60 MG Orally Once a day 1 capsule 24h Active Sudafed Not-Taking [place] 5-325 MG Orally every 6 hrs 1 tablet as needed 6h 4 days Not- Taking RESULTS Name Result Date Reference Range Xray : Foot, Left 3 views (IN HOUSE) 2017-02-14 Xray : Ankle, Left, 3 views (IN HOUSE) 2017-02-14 PROCEDURES Procedure Date Ordered Result Body Site X-RAY EXAM OF FOOT Feb 14, 2017 INSTRUCTIONS MEDICATIONS ADMINISTERED No Known Medications MEDICAL (GENERAL) HISTORY Type Description Date Medical History Pneumonia Medical History Back and neck pain Medical History fibromyalgia Medical History RA Surgical History Heart Cath no stents needed 05/2017 Hospitalization History Chest Pain observation 2013 Hospitalization History Cervical Surgery 1997
--- OUTSIDE RECORDS SUMMARY | 2018-07-28 09:31 | XMS REPORT | Continuity of Care Document ---
Author Organization Unknown Address Unknown Allergies There is no data. Medications There is no data. Problems There is no data. Procedures There is no data. Results Test Result Range RAFAELA - 01/22/17 11:05 RAFAELA SCREEN, IFA NEGATIVE NEGATIVE TSH - 01/22/17 11:05 TSH 2.81 mIU/L 0.40-4.50 RA (RHEUMATOID) FACTOR - 04/28/17 09:33 RHEUMATOID FACTOR 14 IU/mL <14 RAFAELA ANALYZER - 07/15/17 09:28 RAFAELA SCREEN, IFA NEGATIVE NEGATIVE PDM - 09 PANEL (PROFILE 1) - 08/26/17 16:09 Prescribed Drug 1 Morphine NRG Creatinine 53.5 mg/dL > or=20.0 pH 6.71 4.5 - 9.0 Oxidant NEGATIVE mcg/mL <200 Amphetamines NEGATIVE ng/mL <500 medMATCH Amphetamines CONSISTENT NRG Benzodiazepines NEGATIVE ng/mL <100 medMATCH Benzodiazepines CONSISTENT NRG Marijuana Metabolite NEGATIVE ng/mL <20 medMATCH Marijuana Metab CONSISTENT NRG Cocaine Metabolite NEGATIVE ng/mL <150 medMATCH Cocaine Metab CONSISTENT NRG Opiates POSITIVE ng/mL <100 Oxycodone POSITIVE ng/mL <100 COMMENT NRG Codeine NEGATIVE ng/mL <50 medMATCH Codeine CONSISTENT NRG Hydrocodone 85 ng/mL <50 medMATCH Hydrocodone INCONSISTENT NRG Hydromorphone 425 ng/mL <50 medMATCH Hydromorphone CONSISTENT NRG Morphine >16711 ng/mL <50 medMATCH Morphine CONSISTENT NRG Norhydrocodone 805 ng/mL <50 medMATCH Norhydrocodone INCONSISTENT NRG Prescribed Drug 2 Oxycodone NRG Prescribed Drug 3 MS Contin(TM) NRG Noroxycodone 5723 ng/mL <50 medMATCH Noroxycodone CONSISTENT NRG Oxycodone 2218 ng/mL <50 medMATCH Oxycodone CONSISTENT NRG Oxymorphone 1640 ng/mL <50 medMATCH Oxymorphone CONSISTENT NRG Barbiturates NEGATIVE ng/mL <300 medMATCH Barbiturates CONSISTENT NRG Methadone Metabolite NEGATIVE ng/mL <100 medMATCH Methadone Metab CONSISTENT NRG Phencyclidine NEGATIVE ng/mL <25 medMATCH Phencyclidine CONSISTENT NRG Encounters ACCT No. Visit Date/Time Discharge Status Pt. Type Provider Facility Loc./Unit Complaint [id number] 07/20/2018 10:20:00 07/20/2018 23:59:59 [facility] Outpatient JOSS ABRAMS APRN [facility] [id number] 08/26/2017 13:40:00 Document Registration [id number] 07/15/2017 10:20:00 Document Registration [id number] 04/28/2017 09:20:00 Document Registration [id number] 01/22/2017 10:25:00 Document Registration [id number] 09/27/2016 15:15:02 [facility] Unknown
[2018-07-28] MEDS ORDERED: LACTATED RINGERS 1,000 ML IV STA (09:32)
[2018-07-28] MEDS ORDERED: PROPOFOL INJECTION 50 ML IV ONE (10:07)
[2018-07-28] MEDS ORDERED: MIDAZOLAM 2 MG/2 ML (VERSED) VIAL ONE (10:07)
[2018-07-28 10:10] VITALS: BP 140/77
--- NOTE | 2018-07-28 10:57 | Progress Note-Post Operative ---
Post-Operative Progess Note Surgeon (s)/Sheriff Deputy (s) Surgeon ANTWON NAVARRO DO Sheriff Deputy: na Pre-Operative Diagnosis bright red blood in stool, constipation Post-Operative Diagnosis normal colon Procedure & Operative Findings Date of Procedure 07/28/18 Procedure Performed/Findings colonoscopy Anesthesia Type per powder worker tnt Estimated Blood Loss Estimated blood loss (mL): none Specimens/Packing Specimens Removed na ANTWON NAVARRO DO July 28, 2018 10:57
--- NOTE | 2018-07-28 11:00 | Discharge Inst-Simple/Standard ---
Discharge Inst-Standard Patient Instructions/Follow Up Plan of Care/Instructions/FU: Nara 2 weeks High fiber diet. Citracil daily over the counter. Activity as Tolerated: Yes Discharge Diet: Regular Diet (high fiber) ANTWON NAVARRO DO July 28, 2018 11:00
--- NOTE | 2018-07-28 11:10 | Anesthesia-General Post-Op ---
MAC Patient Condition Mental Status/LOC: Same as Preop Cardiovascular: Satisfactory Nausea/Vomiting: Absent Respiratory: Satisfactory Pain: Controlled Complications: Absent Post Op Complications Complications None Follow Up Care/Instructions Patient Instructions None needed. Anesthesiology Discharge Order Discharge Order Patient is doing well, no complaints, stable vital signs, no apparent adverse anesthesia problems. No complications reported per nursing. BONG VALDEZ CRNA July 28, 2018 11:10
[2018-07-28 11:30] VITALS: BP 135/78
[2018-07-28 12:14] VITALS: BP 135/78
--- NOTE | 2018-07-28 16:03 | OPERATIVE REPORT ---
DATE OF SERVICE: 07/28/2018 PREOPERATIVE DIAGNOSIS: Bright red blood in stool, constipation. POSTOPERATIVE DIAGNOSIS: Normal colon. PROCEDURE: Colonoscopy. SURGEON: Antwon Bains DO ANESTHESIA: Per ELECTRONICS TECH. ESTIMATED BLOOD LOSS: None. COMPLICATIONS: None. INDICATIONS: The patient is a 63-year-old female with chronic constipation and bright red blood in stools. This has resolved though. She was recommended colonoscopy for further evaluation. She understands risks and benefits and wished to proceed. Consent was signed and is on the chart. DESCRIPTION OF PROCEDURE: The patient was taken to the endoscopy suite, placed in left lateral recumbent position. Timeout was performed. Digital rectal exam was performed. There were no palpable polyps, masses or ulcerations. The scope was inserted into the rectum and advanced all the way to the cecum with minimal difficulty. Prep was adequate. Scope was then slowly retracted back. There were no polyps, masses or ulcerations within the cecum, ascending, transverse, descending and sigmoid colon. Once in the rectum, scope was attempted to be retroflexed, but very narrow and unable to be retroflexed. Therefore, it was inserted and retracted multiple times. No other pathology was noted. Scope was then slowly retracted back to completely removed. The patient tolerated the procedure well without any complications. RECOMMENDATIONS: The patient will follow up in the office in 2 weeks. Recommend high fiber diet and Citrucel as a fiber additive on daily basis [id number]. We will see how she is doing at that time. The patient is recommended repeat colonoscopy in 10 years unless family history of colon cancer and personal history of polyps, which will be then 5 years. If she has any issues before that, she should be reevaluated at that time. Job ID: [id number] DocumentID: [id number] Dictated Date: 07/28/2018 11:02:20 [employer] Date: 07/28/2018 16:02:54 Dictated By: ANTWON BAINS DO
== END 2018-07-28 11:40 | disposition home or self-care (01) ==
LOC: ENDO 09:14
PROVIDERS: ATTEND Surgery
DX: K92.1 Melena (principal); K59.00 Constipation, unspecified; I10 Essential (primary) hypertension; E78.5 Hyperlipidemia, unspecified; J44.9 Chronic obstructive pulmonary disease, unspecified; F32.9 Major depressive disorder, single episode, unspecified; F41.9 Anxiety disorder, unspecified; F17.210 Nicotine dependence, cigarettes, uncomplicated; M79.7 Fibromyalgia; Z79.82 Long term (current) use of aspirin; Z79.899 Other long term (current) drug therapy

== ENCOUNTER 2018-08-31 09:49 | Day surgery (SDC) | payer OTHER ==
[2018-08-31] VITALS (14 sets, daily range): BP systolic 87–124; BP diastolic 56–80
[~2018-08-31] VITALS: Ht 144.8 cm; Wt 45.4 kg
[2018-08-31] MEDS ORDERED: NITROGLYCERIN 0.4 MG SL TABS BTL 25'S SL ONE (09:55)
[2018-08-31] MEDS ORDERED: ASPIRIN 81 MG CHEW (CHILDREN'S ASA) ONE (09:55)
[2018-08-31] MEDS ORDERED: morphine INJ 10 MG/ML 1ML (SYR OR VIAL) ONE (09:58)
[2018-08-31] MEDS ORDERED: CLOPIDOGREL 300 MG (PLAVIX) TABLET PO ONE ×3 (10:06→12:16)
[2018-08-31] MEDS ORDERED: HEParin 1000 UNIT/ML (10ML VIAL) FOR BOLUS ONE ×3 (10:06→10:49)
--- OUTSIDE RECORDS SUMMARY | 2018-08-31 10:06 | XMS REPORT | Continuity of Care Document ---
Author Organization Unknown Address Unknown Allergies Active Description Code Type Severity Reaction Onset Reported/Identified Relationship to Patient Clinical Status Yes No Known Drug Allergies [id number] Drug Allergy Unknown N/A 03/18/2017 Yes mirtazapine [id number] Drug Allergy Unknown horrible nightm 07/24/2018 Medications There is no data. Problems Date Dx Coded Attending Type Code Diagnosis Diagnosed By 03/18/2017 CELIA COSBY RESOURCE TECHNICIAN Ot F17.210 NICOTINE DEPENDENCE, CIGARETTES, UNCOMPL 03/18/2017 HARJEET, CELIA RESOURCE TECHNICIAN Ot F41.9 ANXIETY DISORDER, UNSPECIFIED 03/18/2017 HARJEET, CELIA RESOURCE TECHNICIAN Ot I20.9 ANGINA PECTORIS, UNSPECIFIED 03/18/2017 HARJEET, CELIA RESOURCE TECHNICIAN Ot R07.89 OTHER CHEST PAIN 03/24/2017 HARJEET, CELIA RESOURCE TECHNICIAN Ot F17.210 NICOTINE DEPENDENCE, CIGARETTES, UNCOMPL 03/24/2017 HARJEET, CELIA RESOURCE TECHNICIAN Ot F41.9 ANXIETY DISORDER, UNSPECIFIED 03/24/2017 HARJEET, CELIA RESOURCE TECHNICIAN Ot I20.9 ANGINA PECTORIS, UNSPECIFIED 03/24/2017 HARJEET, CELIA RESOURCE TECHNICIAN Ot R07.89 OTHER CHEST PAIN 06/10/2017 BAIMATEO PEREZ RESOURCE TECHNICIAN Ot D72.829 ELEVATED WHITE BLOOD CELL COUNT, UNSPECI 06/10/2017 MATEO CARY L RESOURCE TECHNICIAN Ot F17.210 NICOTINE DEPENDENCE, CIGARETTES, UNCOMPL 06/10/2017 BAIMA MATEO L RESOURCE TECHNICIAN Ot I25.10 ATHSCL HEART DISEASE OF [place] CORONARY 06/10/2017 MATEO CARY RESOURCE TECHNICIAN Ot Z11.2 ENCOUNTER FOR SCREENING FOR OTHER BACTER 06/11/2017 MATEO CARY L RESOURCE TECHNICIAN Ot D72.829 ELEVATED WHITE BLOOD CELL COUNT, UNSPECI 06/11/2017 MATEO CARY L RESOURCE TECHNICIAN Ot F17.210 NICOTINE DEPENDENCE, CIGARETTES, UNCOMPL 06/11/2017 BAIMA, MATEO L RESOURCE TECHNICIAN Ot I25.10 ATHSCL HEART DISEASE OF [place] CORONARY 06/11/2017 BAITERRY PEREZHER L RESOURCE TECHNICIAN Ot Z11.2 ENCOUNTER FOR SCREENING FOR OTHER BACTER 06/12/2017 MATEO CARY L RESOURCE TECHNICIAN Ot D72.829 ELEVATED WHITE BLOOD CELL COUNT, UNSPECI 06/12/2017 LUIS DANIEL MATEO L RESOURCE TECHNICIAN Ot F17.210 NICOTINE DEPENDENCE, CIGARETTES, UNCOMPL 06/12/2017 TERRY CARYHER L RESOURCE TECHNICIAN Ot I25.10 ATHSCL HEART DISEASE OF [place] CORONARY 06/12/2017 LUIS DANIEL MATEO L RESOURCE TECHNICIAN Ot Z11.2 ENCOUNTER FOR SCREENING FOR OTHER BACTER 06/20/2017 BAIMA, MATEO L RESOURCE TECHNICIAN Ot I10 ESSENTIAL (PRIMARY) HYPERTENSION 06/20/2017 BAIMA, MATEO L RESOURCE TECHNICIAN Ot I73.9 PERIPHERAL VASCULAR DISEASE, UNSPECIFIED 06/20/2017 BAIMA, MATEO L RESOURCE TECHNICIAN Ot R06.00 DYSPNEA, UNSPECIFIED 06/20/2017 BAIMA, MATEO L RESOURCE TECHNICIAN Ot R07.9 CHEST PAIN, UNSPECIFIED 06/23/2017 BAIMA, MATEO L RESOURCE TECHNICIAN Ot 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 06/23/2017 BAIMA, MATEO L RESOURCE TECHNICIAN Ot R07.9 CHEST PAIN, UNSPECIFIED 06/23/2017 BAIMA, MATEO L RESOURCE TECHNICIAN Ot R10.31 RIGHT LOWER QUADRANT PAIN 06/25/2017 BAIMA, MATEO L RESOURCE TECHNICIAN Ot I10 ESSENTIAL (PRIMARY) HYPERTENSION 06/25/2017 BAIMA, MATEO L RESOURCE TECHNICIAN Ot I73.9 PERIPHERAL VASCULAR DISEASE, UNSPECIFIED 06/25/2017 BAIMA, MATEO L RESOURCE TECHNICIAN Ot R06.00 DYSPNEA, UNSPECIFIED 06/25/2017 BAIMA, MATEO L RESOURCE TECHNICIAN Ot R07.9 CHEST PAIN, UNSPECIFIED 06/25/2017 BAIMA, MATEO L RESOURCE TECHNICIAN Ot 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 06/25/2017 BAIMA, MATEO L RESOURCE TECHNICIAN Ot R07.9 CHEST PAIN, UNSPECIFIED 06/25/2017 BAIMA, MATEO L RESOURCE TECHNICIAN Ot R10.31 RIGHT LOWER QUADRANT PAIN 07/02/2017 BAIMA, MATEO L RESOURCE TECHNICIAN Ot 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 07/02/2017 BAIMA, MATEO L RESOURCE TECHNICIAN Ot R07.9 CHEST PAIN, UNSPECIFIED 07/02/2017 MATEO CARY RESOURCE TECHNICIAN Ot R10.31 RIGHT LOWER QUADRANT PAIN 07/02/2017 MATEO CARY RESOURCE TECHNICIAN Ot I10 ESSENTIAL (PRIMARY) HYPERTENSION 07/02/2017 MATEO CARY RESOURCE TECHNICIAN Ot I73.9 PERIPHERAL VASCULAR DISEASE, UNSPECIFIED 07/02/2017 MATEO CARY RESOURCE TECHNICIAN Ot R06.00 DYSPNEA, UNSPECIFIED 07/02/2017 MATEO CARY RESOURCE TECHNICIAN Ot R07.9 CHEST PAIN, UNSPECIFIED 07/03/2017 NENA, SHANNON E PRENATAL NURSE Ot R06.00 DYSPNEA, UNSPECIFIED 07/03/2017 NENA, SHANNON E PRENATAL NURSE Ot Z72.0 TOBACCO USE 07/13/2017 NENA, SHANNON E PRENATAL NURSE Ot G25.81 RESTLESS LEGS SYNDROME 07/13/2017 NENA, SHANNON E PRENATAL NURSE Ot G47.00 INSOMNIA, UNSPECIFIED 07/13/2017 NENA, SHANNON E PRENATAL NURSE Ot G47.10 HYPERSOMNIA, UNSPECIFIED 07/13/2017 NENA, SHANNON E PRENATAL NURSE Ot G47.50 PARASOMNIA, UNSPECIFIED 07/14/2017 NENA, SHANNON E PRENATAL NURSE Ot G25.81 RESTLESS LEGS SYNDROME 07/14/2017 NENA, SHANNON E PRENATAL NURSE Ot G47.00 INSOMNIA, UNSPECIFIED 07/14/2017 NENA, SHANNON E PRENATAL NURSE Ot G47.10 HYPERSOMNIA, UNSPECIFIED 07/14/2017 NENA, SHANNON E PRENATAL NURSE Ot G47.50 PARASOMNIA, UNSPECIFIED 07/14/2017 NENA, SHANNON E PRENATAL NURSE Ot G25.81 RESTLESS LEGS SYNDROME 07/14/2017 NENA, SHANNON E PRENATAL NURSE Ot G47.00 INSOMNIA, UNSPECIFIED 07/14/2017 NENA, SHANNON E PRENATAL NURSE Ot G47.10 HYPERSOMNIA, UNSPECIFIED 07/14/2017 NENA, SHANNON E PRENATAL NURSE Ot G47.50 PARASOMNIA, UNSPECIFIED 08/07/2017 NENA, SHANNON E PRENATAL NURSE Ot J43.9 EMPHYSEMA, UNSPECIFIED 08/07/2017 NENA, SHANNON E PRENATAL NURSE Ot Z72.0 TOBACCO USE 08/12/2017 NENA SHANNON E PRENATAL NURSE Ot J43.9 EMPHYSEMA, UNSPECIFIED 08/12/2017 SHANNON BARRETT PRENATAL NURSE Ot Z72.0 TOBACCO USE 09/08/2017 SHANNON BARRETT PRENATAL NURSE Ot J43.9 EMPHYSEMA, UNSPECIFIED 09/08/2017 NENA, SHANNON E PRENATAL NURSE Ot Z72.0 TOBACCO USE 09/08/2017 SHANNON BARRETT E PRENATAL NURSE Ot R06.00 DYSPNEA, UNSPECIFIED 09/08/2017 NENAJOSE GRAVESINE E PRENATAL NURSE Ot Z72.0 TOBACCO USE 09/09/2017 SHANNON BARRETT E PRENATAL NURSE Ot R06.00 DYSPNEA, UNSPECIFIED 09/09/2017 NENASHANNON GRAVES PRENATAL NURSE Ot Z72.0 TOBACCO USE 09/22/2017 BAIMAMATEO L RESOURCE TECHNICIAN Ot 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 09/22/2017 MATEO CARY L RESOURCE TECHNICIAN Ot R07.9 CHEST PAIN, UNSPECIFIED 09/22/2017 BAIMA MATEO L RESOURCE TECHNICIAN Ot R10.31 RIGHT LOWER QUADRANT PAIN 09/22/2017 LUIS DANIEL MATEO L RESOURCE TECHNICIAN Ot I10 ESSENTIAL (PRIMARY) HYPERTENSION 09/22/2017 BAIMA MATEO L RESOURCE TECHNICIAN Ot I73.9 PERIPHERAL VASCULAR DISEASE, UNSPECIFIED 09/22/2017 BAIMA MATEO L RESOURCE TECHNICIAN Ot R06.00 DYSPNEA, UNSPECIFIED 09/22/2017 BAIMA MATEO L RESOURCE TECHNICIAN Ot R07.9 CHEST PAIN, UNSPECIFIED 09/22/2017 SHANNON BARRETT PRENATAL NURSE Ot R06.00 DYSPNEA, UNSPECIFIED 09/22/2017 SHANNON BARRETT PRENATAL NURSE Ot Z72.0 TOBACCO USE 09/22/2017 SHANNON BARRETT PRENATAL NURSE Ot J43.9 EMPHYSEMA, UNSPECIFIED 09/22/2017 SHANNON BARRETT PRENATAL NURSE Ot Z72.0 TOBACCO USE 09/22/2017 SHANNON BARRETT PRENATAL NURSE Ot 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 09/22/2017 SHANNON BARRETT PRENATAL NURSE Ot R06.09 OTHER FORMS OF DYSPNEA 09/22/2017 JOSE BARRETTINE E PRENATAL NURSE Ot R53.83 OTHER FATIGUE 09/22/2017 JOSE BARRETTINE Joshua PRENATAL NURSE Ot Z72.0 TOBACCO USE 11/23/2017 JOSE BARRETTINE E PRENATAL NURSE Ot 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 11/23/2017 NENAJOSESHANNON E PRENATAL NURSE Ot R06.09 OTHER FORMS OF DYSPNEA 11/23/2017 NENA SHANNON E PRENATAL NURSE Ot R53.83 OTHER FATIGUE 11/23/2017 NENAJOSESHANNON E PRENATAL NURSE Ot Z72.0 TOBACCO USE 11/24/2017 NENA SHANNON E PRENATAL NURSE Ot 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 11/24/2017 NENA SHANNON E PRENATAL NURSE Ot R06.09 OTHER FORMS OF DYSPNEA 11/24/2017 NENA SHANNON E PRENATAL NURSE Ot R53.83 OTHER FATIGUE 11/24/2017 NENA SHANNON E PRENATAL NURSE Ot Z72.0 TOBACCO USE 11/24/2017 NENA SHANNON E PRENATAL NURSE Ot 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 11/24/2017 NENA SHANNON E PRENATAL NURSE Ot R06.09 OTHER FORMS OF DYSPNEA 11/24/2017 NENA SHANNON E PRENATAL NURSE Ot R53.83 OTHER FATIGUE 11/24/2017 NENA SHANNON E PRENATAL NURSE Ot Z72.0 TOBACCO USE 11/29/2017 NENA SHANNON E PRENATAL NURSE Ot 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 11/29/2017 NENA SHANNON E PRENATAL NURSE Ot R06.09 OTHER FORMS OF DYSPNEA 11/29/2017 NENA SHANNON E PRENATAL NURSE Ot R53.83 OTHER FATIGUE 11/29/2017 NENA SHANNON E PRENATAL NURSE Ot Z72.0 TOBACCO USE 07/24/2018 NENAJOSE GRAVESINE E PRENATAL NURSE Ot 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 07/24/2018 NENA SHANNON E PRENATAL NURSE Ot R06.09 OTHER FORMS OF DYSPNEA 07/24/2018 NENA SHANNON E PRENATAL NURSE Ot R53.83 OTHER FATIGUE 07/24/2018 NENA SHANNON E PRENATAL NURSE Ot Z72.0 TOBACCO USE 07/24/2018 ANTWON NAVARRO DO Ot Z01.818 ENCOUNTER FOR OTHER PREPROCEDURAL EXAMIN 07/28/2018 ANTWON NAVARRO DO Ot E78.5 HYPERLIPIDEMIA, UNSPECIFIED 07/28/2018 ANTWON NAVARRO DO Ot F17.210 NICOTINE DEPENDENCE, CIGARETTES, UNCOMPL 07/28/2018 ANTWON NAVARRO DO Ot F32.9 MAJOR DEPRESSIVE DISORDER, SINGLE EPISOD 07/28/2018 MELANIE NOELANTWON Ot F41.9 ANXIETY DISORDER, [facility]NSPECIFIED [facility]SS[facility] (PRIMARY) HYPERTENSION 07/28/2018 NAVARRO ANTWON NOEL Ot J44.9 CHRONIC OBSTRUCTIVE PULMONARY DISEASE, U 07/28/2018 [facility] ANTWON Avila Ot K59.00 CONSTIPATION, UNSPECIFIED 07/28/2018 [facility] K92.1 MELENA 07/28/[facility] M79.7 FIBROMYALGIA 07/28/2018 [facility] 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 07/28/2018 [facility] Z79.899 OTHER JAIL (CURRENT) DRUG THERAPY 08/03/2018 [facility] E78.5 HYPERLIPIDEMIA, UNSPECIFIED 08/03/2018 [facility] F17.210 NICOTINE DEPENDENCE, CIGARETTES, UNCOMPL 08/03/2018 ANTWON NAVARRO DO Ot F32.9 MAJOR DEPRESSIVE DISORDER, SINGLE EPISOD 08/03/2018 [facility] F[facility].9 ANXIETY DISORDER, UNSPECIFIED 08/03/2018 NAVARRO ANTWON NOEL Ot I10 ESSENTIAL (PRIMARY) HYPERTENSION 08/03/2018 NAVARROANTWON COHN DO Ot J44.9 CHRONIC OBSTRUCTIVE PULMONARY DISEASE, U 08/03/2018 [facility] K59.00 CONSTIPATION, UNSPECIFIED 08/03/2018 [facility] K92.1 MELENA 08/03/2018 NAVARROANTWON COHN DO Ot M79.7 FIBROMYALGIA 08/03/2018 [facility] 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 Results Test Result Range RAFAELA - 01/22/17 11:05 RAFAELA SCREEN, IFA NEGATIVE NEGATIVE TSH - 01/22/17 11:05 TSH 2.81 mIU/L 0.40-4.50 Complete blood count (CBC) with automated white blood cell (WBC) differential - 03/18/17 13:19 Blood leukocytes automated count (number/volume) 10.4 10*3/uL 4.3-11.0 Blood erythrocytes automated count (number/volume) 4.28 10*6/uL 4.35-5.85 Venous blood hemoglobin measurement (mass/volume) 13.7 g/dL 11.5-16.0 Blood hematocrit (volume fraction) 41 % 35-52 Automated erythrocyte mean corpuscular volume 95 [foz_us] 80-99 Automated erythrocyte mean corpuscular hemoglobin (mass per erythrocyte) 32 pg 25-34 Automated erythrocyte mean corpuscular hemoglobin concentration measurement (mass/volume) 34 g/dL 32-36 Automated erythrocyte distribution width ratio 12.5 % 10.0- 14.5 Automated blood platelet count (count/volume) 416 10*3/uL 130-400 Automated blood platelet mean volume measurement 9.1 [foz_us] 7.4-10.4 Automated blood neutrophils/100 leukocytes 56 % 42-75 Automated blood lymphocytes/100 leukocytes 33 % 12-44 Blood monocytes/100 leukocytes 9 % 0-12 Automated blood eosinophils/100 leukocytes 2 % 0-10 Automated blood basophils/100 leukocytes 0 % 0-10 Blood neutrophils automated count (number/volume) 5.9 10*3 1.8-7.8 Blood lymphocytes automated count (number/volume) 3.4 10*3 1.0-4.0 Blood monocytes automated count (number/volume) 0.9 10*3 0.0- 1.0 Automated eosinophil count 0.2 10*3/uL 0.0-0.3 Automated blood basophil count (count/volume) 0.0 10*3/uL 0.0-0.1 PT panel in platelet poor plasma by coagulation assay - 03/18/17 13:19 Prothrombin time (PT) in platelet poor plasma by coagulation assay 13.1 s 12.2-14.7 INR in platelet poor plasma or blood by coagulation assay 1.0 0.8-1.4 Activated partial thromboplastin time (aPTT) in platelet poor plasma bycoagulation assay - 03/18/17 13:19 Activated partial thromboplastin time (aPTT) in platelet poor plasma bycoagulation assay 29 s 24-35 Comprehensive metabolic panel - 03/18/17 13:19 Serum or plasma sodium measurement (moles/volume) 134 mmol/L 135-145 Serum or plasma potassium measurement (moles/volume) 4.1 mmol/L 3.6-5.0 Serum or plasma chloride measurement (moles/volume) 99 mmol/L 98-107 Carbon dioxide 26 mmol/L 21-32 Serum or plasma anion gap determination (moles/volume) 9 mmol/L 5-14 Serum or plasma urea nitrogen measurement (mass/volume) 8 mg/dL 7-18 Serum or plasma creatinine measurement (mass/volume) 0.69 mg/dL 0.60-1.30 Serum or plasma urea nitrogen/creatinine mass ratio 12 NRG Serum or plasma creatinine measurement with calculation of estimated glomerular filtration rate > NRG Serum or plasma glucose measurement (mass/volume) 106 mg/dL 70-105 Serum or plasma calcium measurement (mass/volume) 9.0 mg/dL 8.5-10.1 Serum or plasma total bilirubin measurement (mass/volume) 0.3 mg/dL 0.1-1.0 Serum or plasma alkaline phosphatase measurement (enzymatic activity/volume) 70 U/L 40-136 Serum or plasma aspartate aminotransferase measurement (enzymatic activity/volume) 14 U/L 5-34 Serum or plasma alanine aminotransferase measurement (enzymatic activity/volume) 9 U/L 0-55 Serum or plasma protein measurement (mass/volume) 7.0 g/dL 6.4-8.2 Serum or plasma albumin measurement (mass/volume) 3.5 g/dL 3.2-4.5 Magnesium - 03/18/17 13:19 Magnesium 1.7 mg/dL 1.8-2.4 Serum or plasma troponin i.cardiac measurement (mass/volume) - 03/18/17 13:19 Serum or plasma troponin i.cardiac measurement (mass/volume) < ng/mL <0.30 Myoglobin, serum - 03/18/17 13:19 Myoglobin, serum 33.9 ng/mL 10.0-92.0 Complete urinalysis with reflex to culture - 03/18/17 13:55 Urine color determination YELLOW NRG Urine clarity determination CLEAR NRG Urine pH measurement by test strip 7 5-9 Specific gravity of urine by test strip 1.005 1.016-1.022 Urine protein assay by test strip, semi-quantitative NEGATIVE NEGATIVE Urine glucose detection by automated test strip NEGATIVE NEGATIVE Erythrocytes detection in urine sediment by light microscopy NEGATIVE NEGATIVE Urine ketones detection by automated test strip NEGATIVE NEGATIVE Urine nitrite detection by test strip NEGATIVE NEGATIVE Urine total bilirubin detection by test strip NEGATIVE NEGATIVE Urine urobilinogen measurement by automated test strip (mass/volume) NORMAL NORMAL Urine leukocyte esterase detection by dipstick NEGATIVE NEGATIVE Automated urine sediment erythrocyte count by microscopy (number/high power field) NONE NRG Automated urine sediment leukocyte count by microscopy (number/high power field) [HPF] NRG Bacteria detection in urine sediment by light microscopy FEW NRG Squamous epithelial cells detection in urine sediment by light microscopy 10-25 NRG Crystals detection in urine sediment by light microscopy PRESENT NRG Casts detection in urine sediment by light microscopy NONE NRG Mucus detection in urine sediment by light microscopy NEGATIVE NRG Complete urinalysis with reflex to culture NO NRG Amorphous sediment detection in urine sediment by light microscopy RARE SD URATES NRG RA (RHEUMATOID) FACTOR - 04/28/17 09:33 RHEUMATOID FACTOR 14 IU/mL <14 Automated blood complete blood count (hemogram) panel - 06/10/17 08:34 Blood leukocytes automated count (number/volume) 23.3 10*3/uL 4.3-11.0 Blood erythrocytes automated count (number/volume) 4.39 10*6/uL 4.35-5.85 Venous blood hemoglobin measurement (mass/volume) 13.8 g/dL 11.5-16.0 Blood hematocrit (volume fraction) 41 % 35-52 Automated erythrocyte mean corpuscular volume 92 [foz_us] 80-99 Automated erythrocyte mean corpuscular hemoglobin (mass per erythrocyte) 31 pg 25-34 Automated erythrocyte mean corpuscular hemoglobin concentration measurement (mass/volume) 34 g/dL 32-36 Automated erythrocyte distribution width ratio 13.9 % 10.0- 14.5 Automated blood platelet count (count/volume) 418 10*3/uL 130-400 Automated blood platelet mean volume measurement 9.2 [foz_us] 7.4-10.4 PT panel in platelet poor plasma by coagulation assay - 06/10/17 08:34 Prothrombin time (PT) in platelet poor plasma by coagulation assay 13.8 s 12.2-14.7 INR in platelet poor plasma or blood by coagulation assay 1.1 0.8-1.4 Activated partial thromboplastin time (aPTT) in platelet poor plasma bycoagulation assay - 06/10/17 08:34 Activated partial thromboplastin time (aPTT) in platelet poor plasma bycoagulation assay 34 s 24-35 Comprehensive metabolic panel - 06/10/17 08:34 Serum or plasma sodium measurement (moles/volume) 133 mmol/L 135-145 Serum or plasma potassium measurement (moles/volume) 3.9 mmol/L 3.6-5.0 Serum or plasma chloride measurement (moles/volume) 98 mmol/L 98-107 Carbon dioxide 25 mmol/L 21-32 Serum or plasma anion gap determination (moles/volume) 10 mmol/L 5-14 Serum or plasma urea nitrogen measurement (mass/volume) 17 mg/dL 7-18 Serum or plasma creatinine measurement (mass/volume) 0.78 mg/dL 0.60-1.30 Serum or plasma urea nitrogen/creatinine mass ratio 22 NRG Serum or plasma creatinine measurement with calculation of estimated glomerular filtration rate > NRG Serum or plasma glucose measurement (mass/volume) 98 mg/dL 70-105 Serum or plasma calcium measurement (mass/volume) 9.2 mg/dL 8.5-10.1 Serum or plasma total bilirubin measurement (mass/volume) 0.3 mg/dL 0.1-1.0 Serum or plasma alkaline phosphatase measurement (enzymatic activity/volume) 79 U/L 40-136 Serum or plasma aspartate aminotransferase measurement (enzymatic activity/volume) 13 U/L 5-34 Serum or plasma alanine aminotransferase measurement (enzymatic activity/volume) 7 U/L 0-55 Serum or plasma protein measurement (mass/volume) 7.3 g/dL 6.4-8.2 Serum or plasma albumin measurement (mass/volume) 4.0 g/dL 3.2-4.5 Lipid 1996 panel - 06/10/17 08:34 Serum or plasma triglyceride measurement (mass/volume) 84 mg/dL <150 Serum or plasma cholesterol measurement (mass/volume) 190 mg/dL < 200 Serum or plasma cholesterol in HDL measurement (mass/volume) 61 mg/dL 40-60 Cholesterol in LDL [mass/volume] in serum or plasma by direct assay 116 mg/dL 1-129 Serum or plasma cholesterol in VLDL measurement (mass/volume) 17 mg/dL 5-40 Methicillin resistant Staphylococcus aureus (MRSA) screening culture - 06/10/17 08:34 Methicillin resistant Staphylococcus aureus (MRSA) screening culture NEG NRG Pathologist review of blood test by comment - 06/10/17 15:15 Blood leukocytes automated count (number/volume) 14.7 10*3/uL 4.3-11.0 Blood erythrocytes automated count (number/volume) 4.25 10*6/uL 4.35-5.85 Venous blood hemoglobin measurement (mass/volume) 13.1 g/dL 11.5-16.0 Blood hematocrit (volume fraction) 39 % 35-52 Automated erythrocyte mean corpuscular volume 93 [foz_us] 80-99 Automated erythrocyte mean corpuscular hemoglobin (mass per erythrocyte) 31 pg 25-34 Automated erythrocyte mean corpuscular hemoglobin concentration measurement (mass/volume) 33 g/dL 32-36 Automated erythrocyte distribution width ratio 14.0 % 10.0- 14.5 Automated blood platelet count (count/volume) 412 10*3/uL 130-400 Automated blood platelet mean volume measurement 9.4 [foz_us] 7.4-10.4 Automated blood neutrophils/100 leukocytes 66 % 42-75 Automated blood lymphocytes/100 leukocytes 28 % 12-44 Blood monocytes/100 leukocytes 3 % NRG Automated blood eosinophils/100 leukocytes 1 % 0-10 Automated blood basophils/100 leukocytes 0 % 0-10 Blood neutrophils automated count (number/volume) 9.7 10*3 1.8-7.8 Blood lymphocytes automated count (number/volume) 4.1 10*3 1.0-4.0 Blood monocytes automated count (number/volume) 0.7 10*3 0.0- 1.0 Automated eosinophil count 0.1 10*3/uL 0.0-0.3 Automated blood basophil count (count/volume) 0.0 10*3/uL 0.0-0.1 Manual blood segmented neutrophils/100 leukocytes 62 % NRG Blood band neutrophils/100 leukocytes 0 % NRG Manual blood lymphocytes/100 leukocytes 34 % NRG Manual eosinophils/100 leukocytes in nose 0 % NRG Manual blood basophils/100 leukocytes 1 % NRG Blood erythrocyte morphology finding identification NORMAL NRG Blood reticulocytes count (number/volume) 39 10*9/L 24-90 Blood reticulocytes/100 erythrocytes 0.91 % 0.50-2.40 Blood lactic acid measurement (moles/volume) - 06/10/17 15:15 Blood lactic acid measurement (moles/volume) 0.85 mmol/L 0.50- 2.00 THYROID STIMULATING HORMONE - 06/10/17 15:15 THYROID STIMULATING HORMONE 1.13 u[iU]/mL 0.35-4.94 Bacterial blood culture - 06/10/17 15:15 Bacterial blood culture NG NRG Bacterial blood culture - 06/10/17 15:21 Bacterial blood culture NG NRG Complete urinalysis with reflex to culture - 06/10/17 16:10 Urine color determination YELLOW NRG Urine clarity determination CLEAR NRG Urine pH measurement by test strip 6.5 5-9 Specific gravity of urine by test strip 1.005 1.016-1.022 Urine protein assay by test strip, semi-quantitative 1+ NEGATIVE Urine glucose detection by automated test strip NEGATIVE NEGATIVE Erythrocytes detection in urine sediment by light microscopy 2+ NEGATIVE Urine ketones detection by automated test strip NEGATIVE NEGATIVE Urine nitrite detection by test strip NEGATIVE NEGATIVE Urine total bilirubin detection by test strip NEGATIVE NEGATIVE Urine urobilinogen measurement by automated test strip (mass/volume) NORMAL NORMAL Urine leukocyte esterase detection by dipstick NEGATIVE NEGATIVE Automated urine sediment erythrocyte count by microscopy (number/high power field) RARE NRG Automated urine sediment leukocyte count by microscopy (number/high power field) RARE NRG Bacteria detection in urine sediment by light microscopy NEGATIVE NRG Crystals detection in urine sediment by light microscopy NONE NRG Casts detection in urine sediment by light microscopy NONE NRG Mucus detection in urine sediment by light microscopy NEGATIVE NRG Complete urinalysis with reflex to culture NO NRG RAFAELA ANALYZER - 07/15/17 09:28 RAFAELA SCREEN, IFA NEGATIVE NEGATIVE Arterial blood gas measurement - 08/06/17 15:05 Blood pCO2 41 mm[Hg] 35-45 Blood pO2 86 mm[Hg] 79-93 Arterial blood bicarbonate measurement (moles/volume) 22 mmol/L 23-27 Arterial blood base excess by calculation -2.4 mmol/L -2.5-2.5 Arterial blood oxygen saturation measurement 97 % 94-100 * Inhaled oxygen flow rate ROOM AIR NRG Arterial blood pH measurement with patient temperature correction 7.35 7.37-7.43 Arterial blood carbon dioxide, total measurement (moles/volume) 23.7 mmol/L 21.0-31.0 Body site RR NRG Assessment of wrist artery patency prior to arterial puncture YES-POS NRG Setting of ventilation mode NO NRG Measurement of body temperature 97.3 NRG PDM - 09 PANEL (PROFILE 1) - [...] ng/mL <50 medMATCH Hydromorphone CONSISTENT NRG Morphine >17498 ng/mL <50 medMATCH Morphine CONSISTENT NRG Norhydrocodone [...] Status Pt. Type Provider Facility Loc./Unit Complaint [id number] 07/20/2018 10:20:00 07/20/2018 23:59:59 CLS Outpatient JOSS ABRAMS APRN [facility] [id number] 08/26/2017 13:40:00 Document Registration [id number] 07/15/2017 10:20:00 Document Registration [id number] 04/28/2017 09:20:00 Document Registration [id number] 01/22/2017 10:25:00 Document Registration [id number] 07/28/2018 09:14:00 07/28/2018 11:40:00 DIS Outpatient ANTWON NAVARRO DO [facility] ENDO BLOOD IN STOOLS [id number] 07/24/2018 09:13:00 07/24/2018 11:21:00 DIS Outpatient ANTWON NAVARRO DO [facility] PREOP COLONOSCOPY [id number] 11/24/2017 09:30:00 11/24/2017 23:59:59 CLS Preadmit SHANNON BARRETT PRENATAL NURSE [facility] PULM RESTRICTIVE LUNG DISEASE [id number] 08/25/2017 09:19:00 11/23/2017 00:01:00 DIS Outpatient SHANNON BARRETT PRENATAL NURSE [facility] PULM RESTRICTIVE LUNG DISEASE [id number] 09/29/2017 15:30:00 09/29/2017 23:59:59 CLS Preadmit JUANITA HENDERSON MD (DDU) [facility] RT COPD [id number] 08/06/2017 13:27:00 08/06/2017 23:59:59 CLS Outpatient SHANNON BARRETT PRENATAL NURSE [facility] RAD RESTRICTIVE LUNG DISEASE [id number] 07/12/2017 21:24:00 07/13/2017 06:35:00 DIS Outpatient SHANNON BARRETT PRENATAL NURSE [facility] SLEEP G47.30 SUSPECTED SLEEP APNEA [id number] 07/02/2017 11:43:00 07/02/2017 23:59:59 CLS Outpatient SHANNON BARRETT PRENATAL NURSE [facility] RT R06.00 DYSPNEA [id number] 06/19/2017 13:03:00 06/19/2017 23:59:59 CLS Outpatient MATEO CARY RESOURCE TECHNICIAN [facility] CARD CHEST PAIN R07.9 [id number] 06/10/2017 08:07:00 06/10/2017 17:40:00 DIS Outpatient BAIMA MATEO L RESOURCE TECHNICIAN [facility] CATH ANGINA,SOB,FATIGUE [id number] 06/03/2017 13:56:00 06/03/2017 23:59:59 CLS Outpatient BAICHRIS MATEO L RESOURCE TECHNICIAN [facility] RAD CHEST PAIN R07.9 [id number] 03/18/2017 11:58:00 03/18/2017 15:50:00 DIS Emergency CELIA COSBY [facility] ER HEARTBURN/JAW PAIN [id number] 09/27/2016 15:15:02 ACT Unknown
[2018-08-31] MEDS ORDERED: HEParin DRIP 25000 UNIT/500ML 500 ML IV ONE (10:08)
[2018-08-31] MEDS ORDERED: HEParin 1000 UNIT/ML (10ML VIAL) FOR BOLUS IV STA (10:14)
[2018-08-31] MEDS ORDERED: HEParin DRIP 25000 UNIT/500ML 500 ML IV STA (10:14)
[2018-08-31] MEDS ORDERED: morphine INJ 10 MG/ML 1ML (SYR OR VIAL) IVP ONE (10:15)
[2018-08-31] MEDS ORDERED: ASPIRIN 81 MG CHEW (CHILDREN'S ASA) PO ONE (10:15)
[2018-08-31] MEDS ORDERED: NITROGLYCERIN 0.4 MG SL TABS BTL 25'S SL PRN (10:15)
--- NOTE | 2018-08-31 10:16 | ED Chest Pain ---
General Chief Complaint: Chest Pain Stated Complaint: CHEST PAIN Source: family, RN notes reviewed Exam Limitations: no limitations History of Present Illness Date Seen by Provider: Aug 31, 2018 Time Seen by Provider: 10:00 Initial Comments Patient presents via POV from home c/ c/o substernal chest pain and severe B/L jaw pain since 07:00. States she has been having the jaw pain off and on all weekend where as the chest pain started this AM. Timing/Duration: 1-3 hours Severity/Quality: severe, sharp Location: substernal Radiation: jaw Activities at Onset: none Prior CP/Workup: cardiac cath (05/2017) Modifying Factors: improves with other (none) ASA po BEER MAKER: No NTG SL BEER MAKER: No Associated Symptoms: denies symptoms Allergies and Home Medications Allergies Coded Allergies: mirtazapine (Verified Adverse Reaction, Unknown, horrible nightmares, 07/24/18) Home Medications Aspirin 81 Mg Tablet.dr, 81 MG PO DAILY, (Reported) Atorvastatin Calcium 20 Mg Tablet, 20 MG PO HS, (Reported) Buprenorphine HCl 8 Mg Tab.subl, 8 MG SL TID, (Reported) Cetirizine HCl 10 Mg Tablet, 10 MG PO DAILY, (Reported) Diclofenac Sodium 75 Mg Tablet.dr, 75 MG PO BID, (Reported) Duloxetine HCl 60 Mg Capsule.dr, 120 MG PO DAILY, (Reported) TAKE 2 (60MG) TABS Fluticasone/Umeclidin/Vilanter 1 Each Blst.w.dev, 1 EACH IH DAILY, (Reported) Ipratropium/Albuterol Sulfate 3 Ml Ampul.neb, 3 ML IH Q4H PRN for SHORTNESS OF BREATH, (Reported) Lubiprostone 24 Mcg Capsule, 24 MCG PO BID, (Reported) Metoprolol Succinate 25 Mg Tab.er.24h, 25 MG PO HS, (Reported) Nitroglycerin 0.4 Mg Tab.subl, 0.4 MG SL PRN PRN for CHEST PAIN, (Reported) Patient Home Medication List Home Medication List Reviewed: Yes Review of Systems Review of Systems Constitutional: see HPI EENTM: See HPI, Other (c/o severe jaw pain) Cardiovascular: See HPI, Chest Pain All Other Systems Reviewed Negative Unless Noted: Yes (Negative excepted noted.) Past Jppuhic-Mfcrxc-Fykfkc Hx Patient Social History Type Used: Cigarettes Recent Hopitalizations: No Seasonal Allergies Seasonal Allergies: Yes Past Medical History Surgeries: Yes (CERVICAL CONIZATION, DXLS, DENTAL IMPLANTS) Respiratory: Yes (WEARS OXYGEN AT HS) COPD, Emphysema Cardiac: Yes Hypertension Neurological: No Genitourinary: Yes (CYSTOCELE) Gastrointestinal: Yes (BLOOD IN STOOLS) Chronic Constipation Musculoskeletal: Yes Arthritis, Fibromyalgia, Chronic Back Pain Endocrine: No HEENT: No Cancer: Yes Cervical What Type of Treatment Did You: Surgical Intervention Psychosocial: Yes Anxiety, Depression Integumentary: Yes Eczema Blood Disorders: No Physical Exam Vital Signs Vital Signs - First Documented 08/31/18 08/31/18 09:51 10:00 Temp 97.3 Pulse 70 Resp 15 B/P (MAP) 121/69 (86) Pulse Ox 98 O2 Delivery Room Air O2 Flow Rate 2.00 FiO2 100 Capillary Refill : Height, Weight, BMI Height: 4'10.00" Weight: 100lbs. 0.0oz. [id number]; 20.9 BMI Method:Stated General Appearance: WD/WN, Anxious, Moderate Distress Respiratory: No Respiratory Distress Cardiovascular: Regular Rate, Rhythm Rectal: Deferred Neurologic/Psychiatric: Alert, Oriented x3, No Motor/Sensory Deficits Skin: Warm/Dry Progress/Results/Core Measures Results/Orders Lab Results Laboratory Tests Test 08/31/18 09:59 Range/Units White Blood Count 12.8 H 4.3-11.0 10^3/uL Red Blood Count 4.26 L 4.35-5.85 10^6/uL Hemoglobin 13.3 11.5-16.0 G/DL Hematocrit 41 35-52 % Mean Corpuscular Volume 96 80-99 FL Mean Corpuscular Hemoglobin 31 25-34 PG Mean Corpuscular Hemoglobin Concent 33 32-36 G/DL Red Cell Distribution Width 14.0 10.0-14.5 % Platelet Count 501 H 130-400 10^3/uL Mean Platelet Volume 9.7 7.4-10.4 FL Neutrophils (%) (Auto) 33 L 42-75 % Lymphocytes (%) (Auto) 57 H 12-44 % Monocytes (%) (Auto) 8 0-12 % Eosinophils (%) (Auto) 2 0-10 % Basophils (%) (Auto) 1 0-10 % Neutrophils # (Auto) 4.2 1.8-7.8 X 10^3 Lymphocytes # (Auto) 7.3 H 1.0-4.0 X 10^3 Monocytes # (Auto) 1.0 0.0-1.0 X 10^3 Eosinophils # (Auto) 0.3 0.0-0.3 10^3/uL Basophils # (Auto) 0.1 0.0-0.1 10^3/uL Prothrombin Time 14.2 12.2-14.7 SEC INR Comment 1.1 0.8-1.4 Activated Partial Thromboplast Time 29 24-35 SEC Sodium Level 139 135-145 MMOL/L Potassium Level 3.9 3.6-5.0 MMOL/L Chloride Level 98 98-107 MMOL/L Carbon Dioxide Level 24 21-32 MMOL/L Anion Gap 17 H 5-14 MMOL/L Blood Urea Nitrogen 14 7-18 MG/DL Creatinine 0.76 0.60-1.30 MG/DL Estimat Glomerular Filtration Rate > 60 BUN/Creatinine Ratio 18 Glucose Level 136 H 70-105 MG/DL Calcium Level 9.5 8.5-10.1 MG/DL Corrected Calcium 9.4 8.5-10.1 MG/DL Magnesium Level 1.9 1.8-2.4 MG/DL Total Bilirubin 0.4 0.1-1.0 MG/DL Aspartate Amino Transf (AST/SGOT) 19 5-34 U/L Alanine Aminotransferase (ALT/SGPT) 14 0-55 U/L Alkaline Phosphatase 79 40-136 U/L Myoglobin < 21.0 10.0-92.0 NG/ML Troponin T 15 H <=10 NG/L Total Protein 7.8 6.4-8.2 GM/DL Albumin 4.1 3.2-4.5 GM/DL Smear Scan YES My Orders Orders - JOSS ROBERSON DO Nitroglycerin 0.4 Mg Btl 25's (Nitrostat (08/31/18 09:55) Aspirin Chewable Tablet (Baby Aspirin Ch (08/31/18 09:55) Morphine Injection (Morphine Injection (08/31/18 09:58) Cbc With Automated Diff (08/31/18 10:06) Magnesium (08/31/18 10:06) Ekg Tracing (08/31/18 10:06) Comprehensive Metabolic Panel (08/31/18 10:06) Myoglobin Serum (08/31/18 10:06) Protime With Inr (08/31/18 10:06) Partial Thromboplastin Time (08/31/18 10:06) Monitor-Rhythm Ecg Trace Only (08/31/18 10:06) Aspirin Chewable Tablet (Baby Aspirin Ch (08/31/18 10:15) Nitroglycerin 0.4 Mg Btl 25's (Nitrostat (08/31/18 10:15) Morphine Injection (Morphine Injection (08/31/18 10:15) Heparin (Bolus Per Protocol) (Heparin (B (08/31/18 10:06) Clopidogrel Tablet (Plavix Tablet) (08/31/18 10:06) Heparin (Bolus Per Protocol) (Heparin (B (08/31/18 10:07) Ed Iv/Invasive Line Start (08/31/18 10:05) O2 (08/31/18 10:05) Clopidogrel Tablet (Plavix Tablet) (08/31/18 10:15) Heparin Drip 11152 Unit/500ml (Heparin (08/31/18 10:08) Ns Iv 1000 Ml (Sodium Chloride 0.9%) (08/31/18 10:24) Midazolam Injection (Versed Injection) (08/31/18 10:29) Fentanyl Injection (Sublimaze Injection (08/31/18 10:29) Eptifibatide Bolus (Integrilin Bolus) (08/31/18 10:30) Troponin T (08/31/18 09:59) Medications Given in ED Current Medications Medications Dose Ordered Sig/Faustino Route Start Time Stop Time Status Last Admin Dose Admin Aspirin 324 mg ONCE ONCE PO 08/31/18 10:15 08/31/18 10:16 DC 08/31/18 09:59 324 MG Clopidogrel Bisulfate 300 mg ONCE ONCE PO 08/31/18 10:15 08/31/18 10:23 DC 08/31/18 10:30 300 MG Morphine Sulfate 8 mg ONCE ONCE IVP 08/31/18 10:15 08/31/18 10:16 DC 08/31/18 10:10 8 MG Vital Signs/I&O 08/31/18 08/31/18 09:51 10:00 Temp 97.3 Pulse 70 Resp 15 B/P (MAP) 121/69 (86) Pulse Ox 98 98 O2 Delivery Room Air Nasal Cannula O2 Flow Rate 2.00 FiO2 100 Initial ECG Impression Date: Aug 31, 2018 Initial ECG Impression Time: 10:00 Initial ECG Rhythm: Normal Sinus Initial ECG Impression: Acute MA Departure Impression Primary Impression: Acute myocardial infarction Disposition: 02 XFER SHT-TRM HOSP Condition: Stable Transfer Time Spoke to Accepting Phy: 10:07 Transfer Progress Notes Discussed the patient c/ Dr. Madrid and he has accepted the patient in transfer. Will be taking her straight to the biology laboratory assistant upon arrival. Transfer Facility: [facility] Method of Transfer: EMS Departure-Patient Inst. Referrals: [facility] (PCP/Family) Primary Care Physician JOSS ROBERSON DO Aug 31, 2018 10:15
[2018-08-31] MEDS ORDERED: NS IV 1000 ML 1,000 ML ONE (10:24)
[2018-08-31] MEDS ORDERED: fentaNYL INJECTION 100 MCG/2 ML AMP ONE (10:29)
[2018-08-31] MEDS ORDERED: MIDAZOLAM 5 MG/5 ML (VERSED) VIAL ONE (10:29)
[2018-08-31 10:30] LABS: BASOPHILS # (AUTO) 0.1 10^3/uL (0.0-0.1); BASOPHILS % (AUTO) 1 % (0-10); EOSINOPHILS # (AUTO) 0.3 10^3/uL (0.0-0.3); EOSINOPHILS % (AUTO) 2 % (0-10); HEMATOCRIT 41 % (35-52); HEMOGLOBIN 13.3 G/DL (11.5-16.0); LYMPHOCYTES # (AUTO) 7.3 X 10^3 (1.0-4.0); LYMPHOCYTES % (AUTO) 57 % (12-44); MEAN CORPUSCULAR HEMOGLOBIN 31 PG (25-34); MEAN CORPUSCULAR HGB CONC 33 G/DL (32-36); MEAN CORPUSCULAR VOLUME 96 FL (80-99); MEAN PLATELET VOLUME 9.7 FL (7.4-10.4); MONOCYTES % (AUTO) 8 % (0-12); NEUTROPHILS # (AUTO) 4.2 X 10^3 (1.8-7.8); NEUTROPHILS % (AUTO) 33 % (42-75); PLATELET COUNT 501 10^3/uL (130-400); WHITE BLOOD COUNT 12.8 10^3/uL (4.3-11.0)
[2018-08-31] MEDS ORDERED: EPTIFIBATIDE BOLUS 10 ML IV ONE (10:30)
[2018-08-31 10:41] LABS: INR 1.1 (0.8-1.4); PROTHROMBIN TIME PATIENT 14.2 SEC (12.2-14.7)
[2018-08-31] MEDS ORDERED: NITRO DRIP 25000 MCG/D5W 250 ML IV ONE (10:46)
[2018-08-31 10:52] LABS: POTASSIUM 3.9 MMOL/L (3.6-5.0); SMEAR SCAN COMMENT YES; SODIUM 139 MMOL/L (135-145)
[2018-08-31 10:53] LABS: ALANINE AMINOTRANSFERASE 14 U/L (0-55); ALBUMIN 4.1 GM/DL (3.2-4.5); ALKALINE PHOSPHATASE 79 U/L (40-136); BILIRUBIN,TOTAL 0.4 MG/DL (0.1-1.0); BUN/CREATININE RATIO 18; CALCIUM 9.5 MG/DL (8.5-10.1); CARBON DIOXIDE 24 MMOL/L (21-32); CHLORIDE 98 MMOL/L (98-107); CREATININE SERUM 0.76 MG/DL (0.60-1.30); GFR ESTIMATED > 60; GLUCOSE 136 MG/DL (70-105); MAGNESIUM 1.9 MG/DL (1.8-2.4); TOTAL PROTEIN 7.8 GM/DL (6.4-8.2)
[2018-08-31] MEDS ORDERED: EPTIFIBATIDE DRIP 100 ML IV ONE (11:14)
[2018-08-31] MEDS ORDERED: ATROPINE INJECTION 1 MG/10 ML SYR (ABBOTT) ONE (11:19)
--- OUTSIDE RECORDS SUMMARY | 2018-08-31 11:29 | XMS REPORT | Continuity of Care Document ---
Author Organization Unknown Address Unknown Allergies Active Description Code Type Severity Reaction Onset Reported/Identified Relationship to Patient Clinical Status Yes No Known Drug Allergies [id number] Drug Allergy Unknown N/A 03/18/2017 Yes mirtazapine [id number] Drug Allergy Unknown horrible nightm 07/24/2018 Medications There is no data. Problems Date Dx Coded Attending Type Code Diagnosis Diagnosed By 03/18/2017 CELIA COSBY CYLINDER DEVALVER Ot F17.210 NICOTINE DEPENDENCE, CIGARETTES, UNCOMPL 03/18/2017 HARJEET, CELIA CYLINDER DEVALVER Ot F41.9 ANXIETY DISORDER, UNSPECIFIED 03/18/2017 HARJEET, CELIA CYLINDER DEVALVER Ot I20.9 ANGINA PECTORIS, UNSPECIFIED 03/18/2017 HARJEET, CELIA CYLINDER DEVALVER Ot R07.89 OTHER CHEST PAIN 03/24/2017 HARJEET, CELIA CYLINDER DEVALVER Ot F17.210 NICOTINE DEPENDENCE, CIGARETTES, UNCOMPL 03/24/2017 HARJEET, CELIA CYLINDER DEVALVER Ot F41.9 ANXIETY DISORDER, UNSPECIFIED 03/24/2017 HARJEET, CELIA CYLINDER DEVALVER Ot I20.9 ANGINA PECTORIS, UNSPECIFIED 03/24/2017 HARJEET, CELIA CYLINDER DEVALVER Ot R07.89 OTHER CHEST PAIN 06/10/2017 BAIMATEO PEREZ CYLINDER DEVALVER Ot D72.829 ELEVATED WHITE BLOOD CELL COUNT, UNSPECI 06/10/2017 MATEO CARY L CYLINDER DEVALVER Ot F17.210 NICOTINE DEPENDENCE, CIGARETTES, UNCOMPL 06/10/2017 BAIMA MATEO L CYLINDER DEVALVER Ot I25.10 ATHSCL HEART DISEASE OF [place] CORONARY 06/10/2017 MATEO CARY CYLINDER DEVALVER Ot Z11.2 ENCOUNTER FOR SCREENING FOR OTHER BACTER 06/11/2017 MATEO CARY L CYLINDER DEVALVER Ot D72.829 ELEVATED WHITE BLOOD CELL COUNT, UNSPECI 06/11/2017 MATEO CARY L CYLINDER DEVALVER Ot F17.210 NICOTINE DEPENDENCE, CIGARETTES, UNCOMPL 06/11/2017 BAIMA, MATEO L CYLINDER DEVALVER Ot I25.10 ATHSCL HEART DISEASE OF [place] CORONARY 06/11/2017 BAITERRY PEREZHER L CYLINDER DEVALVER Ot Z11.2 ENCOUNTER FOR SCREENING FOR OTHER BACTER 06/12/2017 MATEO CARY L CYLINDER DEVALVER Ot D72.829 ELEVATED WHITE BLOOD CELL COUNT, UNSPECI 06/12/2017 LUIS DANIEL MATEO L CYLINDER DEVALVER Ot F17.210 NICOTINE DEPENDENCE, CIGARETTES, UNCOMPL 06/12/2017 TERRY CARYHER L CYLINDER DEVALVER Ot I25.10 ATHSCL HEART DISEASE OF [place] CORONARY 06/12/2017 LUIS DANIEL MATEO L CYLINDER DEVALVER Ot Z11.2 ENCOUNTER FOR SCREENING FOR OTHER BACTER 06/20/2017 BAIMA, MATEO L CYLINDER DEVALVER Ot I10 ESSENTIAL (PRIMARY) HYPERTENSION 06/20/2017 BAIMA, MATEO L CYLINDER DEVALVER Ot I73.9 PERIPHERAL VASCULAR DISEASE, UNSPECIFIED 06/20/2017 BAIMA, MATEO L CYLINDER DEVALVER Ot R06.00 DYSPNEA, UNSPECIFIED 06/20/2017 BAIMA, MATEO L CYLINDER DEVALVER Ot R07.9 CHEST PAIN, UNSPECIFIED 06/23/2017 BAIMA, MATEO L CYLINDER DEVALVER Ot 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 06/23/2017 BAIMA, MATEO L CYLINDER DEVALVER Ot R07.9 CHEST PAIN, UNSPECIFIED 06/23/2017 BAIMA, MATEO L CYLINDER DEVALVER Ot R10.31 RIGHT LOWER QUADRANT PAIN 06/25/2017 BAIMA, MATEO L CYLINDER DEVALVER Ot I10 ESSENTIAL (PRIMARY) HYPERTENSION 06/25/2017 BAIMA, MATEO L CYLINDER DEVALVER Ot I73.9 PERIPHERAL VASCULAR DISEASE, UNSPECIFIED 06/25/2017 BAIMA, MATEO L CYLINDER DEVALVER Ot R06.00 DYSPNEA, UNSPECIFIED 06/25/2017 BAIMA, MATEO L CYLINDER DEVALVER Ot R07.9 CHEST PAIN, UNSPECIFIED 06/25/2017 BAIMA, MATEO L CYLINDER DEVALVER Ot 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 06/25/2017 BAIMA, MATEO L CYLINDER DEVALVER Ot R07.9 CHEST PAIN, UNSPECIFIED 06/25/2017 BAIMA, MATEO L CYLINDER DEVALVER Ot R10.31 RIGHT LOWER QUADRANT PAIN 07/02/2017 BAIMA, MATEO L CYLINDER DEVALVER Ot 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 07/02/2017 BAIMA, MATEO L CYLINDER DEVALVER Ot R07.9 CHEST PAIN, UNSPECIFIED 07/02/2017 MATEO CARY CYLINDER DEVALVER Ot R10.31 RIGHT LOWER QUADRANT PAIN 07/02/2017 MATEO CARY CYLINDER DEVALVER Ot I10 ESSENTIAL (PRIMARY) HYPERTENSION 07/02/2017 MATEO CARY CYLINDER DEVALVER Ot I73.9 PERIPHERAL VASCULAR DISEASE, UNSPECIFIED 07/02/2017 MATEO CARY CYLINDER DEVALVER Ot R06.00 DYSPNEA, UNSPECIFIED 07/02/2017 MATEO CARY CYLINDER DEVALVER Ot R07.9 CHEST PAIN, UNSPECIFIED 07/03/2017 NENA, SHANNON E [employer] Ot R06.00 DYSPNEA, UNSPECIFIED 07/03/2017 NENA, SHANNON E [employer] Ot Z72.0 TOBACCO USE 07/13/2017 NENA, SHANNON E [employer] Ot G25.81 RESTLESS LEGS SYNDROME 07/13/2017 NENA, SHANNON E [employer]LLER Ot G47.00 INSOMNIA, UNSPECIFIED 07/13/2017 NENA, SHANNON E [employer]LLER Ot G47.10 HYPERSOMNIA, UNSPECIFIED 07/13/2017 NENA, SHANNON E [employer]OLLER Ot G47.50 PARASOMNIA, UNSPECIFIED 07/14/2017 NENA, SHANNON E [employer]OLLER Ot G25.81 RESTLESS LEGS SYNDROME 07/14/2017 NENA, SHANNON E [employer] CONTROLLER Ot G47.00 INSOMNIA, UNSPECIFIED 07/14/2017 NENA, SHANNON E [employer] CONTROLLER Ot G47.10 HYPERSOMNIA, UNSPECIFIED 07/14/2017 NENA, SHANNON E [employer] CONTROLLER Ot G47.50 PARASOMNIA, UNSPECIFIED 07/14/2017 NENA, SHANNON E [employer] LO[employer] CONTROLLER Ot G25.81 RESTLESS LEGS SYNDROME 07/14/2017 NENA, SHANNON E [employer] LO[employer] CONTROLLER Ot G47.00 INSOMNIA, UNSPECIFIED 07/14/2017 NENA, SHANNON E [employer] CONTROLLER Ot G47.10 HYPERSOMNIA, UNSPECIFIED 07/14/2017 NENA, SHANNON E [employer]OLLER Ot G47.50 PARASOMNIA, UNSPECIFIED 08/07/2017 NENA, SHANNON E [employer]LLER Ot J43.9 EMPHYSEMA, UNSPECIFIED 08/07/2017 NENA, SHANNON E [employer]LLER Ot Z72.0 TOBACCO USE 08/12/2017 NENA SHANNON E [employer] LO[employer] CONTROLLER Ot J43.9 EMPHYSEMA, UNSPECIFIED 08/12/2017 SHANNON BARRETT [employer]ER Ot Z72.0 TOBACCO USE 09/08/2017 SHANNON BARRETT [employer]ER Ot J43.9 EMPHYSEMA, UNSPECIFIED 09/08/2017 NENA, SHANNON E [employer]OLLER Ot Z72.0 TOBACCO USE 09/08/2017 SHANNON BARRETT E [employer] LO[employer] CONTROLLER Ot R06.00 DYSPNEA, UNSPECIFIED 09/08/2017 NENAJOSE GRAVESINE E [employer] LO[employer] CONTROLLER Ot Z72.0 TOBACCO USE 09/09/2017 SHANNON BARRETT E [employer] LO[employer] CONTROLLER Ot R06.00 DYSPNEA, UNSPECIFIED 09/09/2017 NENASHANNON GRAVES [employer] LO[employer] CONTROLLER Ot Z72.0 TOBACCO USE 09/22/2017 BAIMAMATEO L CYLINDER DEVALVER Ot 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 09/22/2017 MATEO CARY L CYLINDER DEVALVER Ot R07.9 CHEST PAIN, UNSPECIFIED 09/22/2017 BAIMA MATEO L CYLINDER DEVALVER Ot R10.31 RIGHT LOWER QUADRANT PAIN 09/22/2017 LUIS DANIEL MATEO L CYLINDER DEVALVER Ot I10 ESSENTIAL (PRIMARY) HYPERTENSION 09/22/2017 BAIMA MATEO L CYLINDER DEVALVER Ot I73.9 PERIPHERAL VASCULAR DISEASE, UNSPECIFIED 09/22/2017 BAIMA MATEO L CYLINDER DEVALVER Ot R06.00 DYSPNEA, UNSPECIFIED 09/22/2017 BAIMA MATEO L CYLINDER DEVALVER Ot R07.9 CHEST PAIN, UNSPECIFIED 09/22/2017 SHANNON BARRETT [employer] Ot R06.00 DYSPNEA, UNSPECIFIED 09/22/2017 SHANNON BARRETT [employer]ER Ot Z72.0 TOBACCO USE 09/22/2017 SHANNON BARRETT [employer] Ot J43.9 EMPHYSEMA, UNSPECIFIED 09/22/2017 SHANNON BARRETT [employer] Ot Z72.0 TOBACCO USE 09/22/2017 SHANNON BARRETT [employer] Ot 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 09/22/2017 SHANNON BARRETT [employer] Ot R06.09 OTHER FORMS OF DYSPNEA 09/22/2017 JOSE BARRETTINE E [employer] LO[employer] CONTROLLER Ot R53.83 OTHER FATIGUE 09/22/2017 JOSE BARRETTINE Joshua [employer]OLLER Ot Z72.0 TOBACCO USE 11/23/2017 JOSE BARRETTINE E [employer] LO[employer] CONTROLLER Ot 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 11/23/2017 NENAJOSESHANNON E [employer] LO[employer] CONTROLLER Ot R06.09 OTHER FORMS OF DYSPNEA 11/23/2017 NENA SHANNON E [employer] LO[employer] CONTROLLER Ot R53.83 OTHER FATIGUE 11/23/2017 NENAJOSESHANNON E [employer] LO[employer] CONTROLLER Ot Z72.0 TOBACCO USE 11/24/2017 NENA SHANNON E [employer] LO[employer] CONTROLLER Ot 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 11/24/2017 NENA SHANNON E [employer] LO[employer] CONTROLLER Ot R06.09 OTHER FORMS OF DYSPNEA 11/24/2017 NENA SHANNON E [employer] LO[employer] CONTROLLER Ot R53.83 OTHER FATIGUE 11/24/2017 NENA SHANNON E [employer] LO[employer] CONTROLLER Ot Z72.0 TOBACCO USE 11/24/2017 NENA SHANNON E [employer] LO[employer] CONTROLLER Ot 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 11/24/2017 NENA SHANNON E [employer] LO[employer]OLLER Ot R06.09 OTHER FORMS OF DYSPNEA 11/24/2017 NENA SHANNON E [employer] LO[employer] CONTROLLER Ot R53.83 OTHER FATIGUE 11/24/2017 NENA SHANNON E [employer] LO[employer] CONTROLLER Ot Z72.0 TOBACCO USE 11/29/2017 NENA SHANNON E [employer] LO[employer] CONTROLLER Ot 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 11/29/2017 NENA SHANNON E [employer] LO[employer] CONTROLLER Ot R06.09 OTHER FORMS OF DYSPNEA 11/29/2017 NENA SHANNON E [employer] LO[employer] CONTROLLER Ot R53.83 OTHER FATIGUE 11/29/2017 NENA SHANNON E [employer] LO[employer] CONTROLLER Ot Z72.0 TOBACCO USE 07/24/2018 NENAJOSE GRAVESINE E [employer] LO[employer] CONTROLLER Ot 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 07/24/2018 NENA SHANNON E [employer] LO[employer] CONTROLLER Ot R06.09 OTHER FORMS OF DYSPNEA 07/24/2018 NENA SHANNON E [employer] LO[employer] CONTROLLER Ot R53.83 OTHER FATIGUE 07/24/2018 NENA SHANNON E [employer] LO[employer] CONTROLLER Ot Z72.0 TOBACCO USE 07/24/2018 ANTWON NAVARRO DO Ot Z01.818 ENCOUNTER FOR OTHER PREPROCEDURAL EXAMIN 07/28/2018 ANTWON NAVARRO DO Ot E78.5 HYPERLIPIDEMIA, UNSPECIFIED 07/28/2018 ANTWON NAVARRO DO Ot F17.210 NICOTINE DEPENDENCE, CIGARETTES, UNCOMPL 07/28/2018 ANTWON NAVARRO DO Ot F32.9 MAJOR DEPRESSIVE DISORDER, SINGLE EPISOD 07/28/2018 MELANIE NOELANTWON Ot F41.9 ANXIETY DISORDER, UNSPECIFIED 07/28/[facility] ESSENTIAL (PRIMARY) HYPERTENSION 07/28/2018 NAVARRO ANTWON NOEL Ot J44.9 CHRONIC OBSTRUCTIVE PULMONARY DISEASE, U 07/28/2018 [facility] ANTWON Avila Ot K59.00 CONSTIPATION, UNSPECIFIED 07/28/2018 [facility] K92.1 MELENA 07/28/2018 [facility] M79.7 FIBROMYALGIA 07/28/2018 [facility] Z79.82 FRONT DESK LEAD (CURRENT) USE OF ASPIRIN 07/28/2018 [facility] Z79.899 OTHER CUSTODIAL (CURRENT) DRUG THERAPY 08/03/2018 [facility] E78.5 HYPERLIPIDEMIA, UNSPECIFIED 08/03/2018 [facility] F17.210 NICOTINE DEPENDENCE, CIGARETTES, UNCOMPL 08/03/2018 ANTWON NAVARRO DO Ot F32.9 MAJOR DEPRESSIVE DISORDER, SINGLE EPISOD 08/03/2018 [facility] F41.9 ANXIETY DISORDER, UNSPECIFIED 08/03/2018 NAVARRO ANTWON NOEL Ot I10 ESSENTIAL (PRIMARY) HYPERTENSION 08/03/2018 NAVARROANTWON COHN DO Ot J44.9 CHRONIC OBSTRUCTIVE PULMONARY DISEASE, U 08/03/2018 [facility] K59.00 CONSTIPATION, UNSPECIFIED 08/03/2018 [facility] K92.1 MELENA 08/03/2018 NAVARROANTWON COHN DO Ot M79.7 FIBROMYALGIA 08/03/[facility] Z79.82 FRONT DESK LEAD (CURRENT) USE OF ASPIRIN 08/03/2018 [facility] Z79.899 OTHER CUSTODIAL (CURRENT) DRUG THERAPY Procedures There is no [...] ng/mL <50 medMATCH Hydromorphone CONSISTENT NRG Morphine >29204 ng/mL <50 medMATCH Morphine CONSISTENT NRG Norhydrocodone [...] NEGATIVE ng/mL <25 medMATCH Phencyclidine CONSISTENT NRG Complete blood count (CBC) with automated white blood cell (WBC) differential - 08/31/18 09:59 Blood leukocytes automated count (number/volume) 12.8 10*3/uL 4.3-11.0 Blood erythrocytes automated count (number/volume) 4.26 10*6/uL 4.35-5.85 Venous blood hemoglobin measurement (mass/volume) 13.3 g/dL 11.5-16.0 Blood hematocrit (volume fraction) 41 % 35-52 Automated erythrocyte mean corpuscular volume 96 [foz_us] 80-99 Automated erythrocyte mean corpuscular hemoglobin (mass per erythrocyte) 31 pg 25-34 Automated erythrocyte mean corpuscular hemoglobin concentration measurement (mass/volume) 33 g/dL 32-36 Automated erythrocyte distribution width ratio 14.0 % 10.0- 14.5 Automated blood platelet count (count/volume) 501 10*3/uL 130-400 Automated blood platelet mean volume measurement 9.7 [foz_us] 7.4-10.4 Automated blood neutrophils/100 leukocytes 33 % 42-75 Automated blood lymphocytes/100 leukocytes 57 % 12-44 Blood monocytes/100 leukocytes 8 % 0-12 Automated blood eosinophils/100 leukocytes 2 % 0-10 Automated blood basophils/100 leukocytes 1 % 0-10 Blood neutrophils automated count (number/volume) 4.2 10*3 1.8-7.8 Blood lymphocytes automated count (number/volume) 7.3 10*3 1.0-4.0 Blood monocytes automated count (number/volume) 1.0 10*3 0.0- 1.0 Automated eosinophil count 0.3 10*3/uL 0.0-0.3 Automated blood basophil count (count/volume) 0.1 10*3/uL 0.0-0.1 Blood blood smear finding identification by light microscopy YES NRG PT panel in platelet poor plasma by coagulation assay - 08/31/18 09:59 Prothrombin time (PT) in platelet poor plasma by coagulation assay 14.2 s 12.2-14.7 INR in platelet poor plasma or blood by coagulation assay 1.1 0.8-1.4 Activated partial thromboplastin time (aPTT) in platelet poor plasma bycoagulation assay - 08/31/18 09:59 Activated partial thromboplastin time (aPTT) in platelet poor plasma bycoagulation assay 29 s 24-35 Comprehensive metabolic panel - 08/31/18 09:59 Serum or plasma sodium measurement (moles/volume) 139 mmol/L 135-145 Serum or plasma potassium measurement (moles/volume) 3.9 mmol/L 3.6-5.0 Serum or plasma chloride measurement (moles/volume) 98 mmol/L 98-107 Carbon dioxide 24 mmol/L 21-32 Serum or plasma anion gap determination (moles/volume) 17 mmol/L 5-14 Serum or plasma urea nitrogen measurement (mass/volume) 14 mg/dL 7-18 Serum or plasma creatinine measurement (mass/volume) 0.76 mg/dL 0.60-1.30 Serum or plasma urea nitrogen/creatinine mass ratio 18 NRG Serum or plasma creatinine measurement with calculation of estimated glomerular filtration rate > NRG Serum or plasma glucose measurement (mass/volume) 136 mg/dL 70-105 Serum or plasma calcium measurement (mass/volume) 9.5 mg/dL 8.5-10.1 Serum or plasma total bilirubin measurement (mass/volume) 0.4 mg/dL 0.1-1.0 Serum or plasma alkaline phosphatase measurement (enzymatic activity/volume) 79 U/L 40-136 Serum or plasma aspartate aminotransferase measurement (enzymatic activity/volume) 19 U/L 5-34 Serum or plasma alanine aminotransferase measurement (enzymatic activity/volume) 14 U/L 0-55 Serum or plasma protein measurement (mass/volume) 7.8 g/dL 6.4-8.2 Serum or plasma albumin measurement (mass/volume) 4.1 g/dL 3.2-4.5 CALCIUM CORRECTED 9.4 mg/dL 8.5-10.1 Magnesium - 08/31/18 09:59 Magnesium 1.9 mg/dL 1.8-2.4 Myoglobin, serum - 08/31/18 09:59 Myoglobin, serum < ng/mL 10.0-92.0 Encounters ACCT No. Visit Date/Time Discharge Status Pt. Type Provider Facility Loc./Unit Complaint [id number] 07/20/2018 10:20:00 07/20/2018 23:59:59 CLS Outpatient JOSS ABRAMS APRN [facility] [place] [id number] 08/26/2017 13:40:00 Document Registration [id number] 07/15/2017 10:20:00 Document Registration [id number] 04/28/2017 09:20:00 Document Registration [id number] 01/22/2017 10:25:00 Document Registration [id number] 07/28/2018 09:14:00 07/28/2018 11:40:00 DIS Outpatient ANTWON NAVARRO DO [facility] ENDO BLOOD IN STOOLS [id number] 07/24/2018 09:13:00 07/24/2018 11:21:00 DIS Outpatient ANTWON NAVARRO DO [facility] PREOP COLONOSCOPY [id number] 11/24/2017 09:30:00 11/24/2017 23:59:59 CLS Preadmit SHANNON BARRETT APRN [facility] PULM RESTRICTIVE LUNG DISEASE [id number] 08/25/2017 09:19:00 11/23/2017 00:01:00 DIS Outpatient SHANNON BARRETT [employer] [facility] PULM RESTRICTIVE LUNG DISEASE [id number] 09/29/2017 15:30:00 09/29/2017 23:59:59 CLS Preadmit JUANITA HENDERSON MD (DDU) [facility] RT COPD [id number] 08/06/2017 13:27:00 08/06/2017 23:59:59 CLS Outpatient SHANNON BARRETT [employer] [facility] RAD RESTRICTIVE LUNG DISEASE [id number] 07/12/2017 21:24:00 07/13/2017 06:35:00 DIS Outpatient SHANNON BARRETT [employer] [facility] SLEEP G47.30 SUSPECTED SLEEP APNEA [id number] 07/02/2017 11:43:00 07/02/2017 23:59:59 CLS Outpatient SHANNON BARRETT [employer] [facility] RT R06.00 DYSPNEA [id number] 06/19/2017 13:03:00 06/19/2017 23:59:59 CLS Outpatient BAIMA, MATEO L CYLINDER DEVALVER [facility] CARD CHEST PAIN R07.9 [id number] 06/10/2017 08:07:00 06/10/2017 17:40:00 DIS Outpatient BAIMA, MATEO L CYLINDER DEVALVER [facility] CATH ANGINA,SOB,FATIGUE [id number] 06/03/2017 13:56:00 06/03/2017 23:59:59 CLS Outpatient BAIMA, MATEO L CYLINDER DEVALVER [facility] RAD CHEST PAIN R07.9 [id number] 03/18/2017 11:58:00 03/18/2017 15:50:00 DIS Emergency CELIA COSBY CYLINDER DEVALVER [facility] ER HEARTBURN/JAW PAIN [id number] 08/31/2018 10:31:00 Document Registration [id number] 09/27/2016 15:15:02 ACT Unknown
[2018-08-31] MEDS ORDERED: NS IV 1000 ML 1,000 ML IV STA (11:58)
[2018-08-31] MEDS ORDERED: NS IV 1000 ML 1,000 ML IV SCH (12:44)
[2018-08-31] MEDS ORDERED: ACETAMINOPHEN 325 MG TABLET PO PRN (12:45)
[2018-08-31] MEDS ORDERED: PATIENT MAY USE OWN MEDS, ALL PO SCH (12:45)
[2018-08-31] MEDS ORDERED: TEMAZEPAM 7.5 MG CAP (RESTORIL) PO PRN (12:45)
--- NOTE | 2018-08-31 13:08 | Cardiology History & Physical ---
HPI-Cardiology Cardiology H&P Date of Admission 08/31/18 [facility] Attending Physician Fela Madrid MD, MA FACP [facility] Consulting Physician [facility] CC: Chest pain HPI: 63 yo woman with sudden onset of crushing midsternal pain associated with diaphoresis and shortness of breath and radiation to jaws and shoulders. Never experienced before. Went to [facility], was diagnosed with Ac STEMI and sent to us. Still having cp upon arrival. Has chronic exertional shortness of breath. No palp or syncope. Has chronic gen pain Review of Systems-Cardiology Review of Systems Constitutional: malaise, tiredness; No weight loss, No weight gain Eyes: No vision change Ears/Nose/Throat: No ear discharge, No nasal drainage, No recent hearing loss Respiratory: As described under HPI Cardiovascular: As described under HPI Gastrointestinal: No diarrhea; nausea; No vomiting Genitourinary: No dysuria, No hematuria, No urine frequency changes Musculoskeletal: back pain (chronic) Skin: No rash, No ulcerations Psychiatric/Neurological: No seizure, No focal weakness, No syncope Hematologic: No bleeding abnormalities All Other Systems Reviewed Negative Unless Noted: Yes (Negative excepted noted.) ZPE-Xoczii-Uieylm Hx Patient Social History Alcohol Use: Denies Use Recreational Drug Use: No Smoking Status: Current Everyday Smoker Type Used: Cigarettes 2nd Hand Smoke Exposure: No Recent Foreign Travel: No Recent Infectious Disease Expo: No Past Medical History PMH As described under Assessment. Allergies and Home Medications Allergies Coded Allergies: mirtazapine (Verified Adverse Reaction, Unknown, horrible nightmares, 07/24/18) Home Medications Aspirin 81 Mg Tablet.dr, 81 MG PO DAILY, (Reported) Atorvastatin Calcium 20 Mg Tablet, 20 MG PO HS, (Reported) Buprenorphine HCl 8 Mg Tab.subl, 8 MG SL TID, (Reported) Cetirizine HCl 10 Mg Tablet, 10 MG PO DAILY, (Reported) Diclofenac Sodium 75 Mg Tablet.dr, 75 MG PO BID, (Reported) Duloxetine HCl 60 Mg Capsule.dr, 120 MG PO DAILY, (Reported) TAKE 2 (60MG) TABS Fluticasone/Umeclidin/Vilanter 1 Each Blst.w.dev, 1 EACH IH DAILY, (Reported) Ipratropium/Albuterol Sulfate 3 Ml Ampul.neb, 3 ML IH Q4H PRN for SHORTNESS OF BREATH, (Reported) Lubiprostone 24 Mcg Capsule, 24 MCG PO BID, (Reported) Metoprolol Succinate 25 Mg Tab.er.24h, 25 MG PO HS, (Reported) Nitroglycerin 0.4 Mg Tab.subl, 0.4 MG SL PRN PRN for CHEST PAIN, (Reported) Patient Home Medication List Home Medication List Reviewed: Yes Physical Exam-Cardiology Physical Exam Vital Signs/I&O 08/31/18 08/31/18 08/31/18 08/31/18 09:51 09:51 10:00 10:34 Temp 97.3 97.5 Pulse 70 70 Resp 15 21 B/P (MAP) 121/69 (86) 122/68 (86) Pulse Ox 98 98 100 O2 Delivery Room Air Room Air Nasal Cannula Room Air O2 Flow Rate 2.00 FiO2 100 Capillary Refill : Less Than 3 Seconds Constitutional: AAO x 3, well-developed, other (thin-appearing) HEENT: No xanthelasmas are seen Neck: carotid pulses are 2 + bilaterally, with good upstrokes Respiratory: accessory muscle use, other (fair air entry, prolonged exp) Cardiovascular: regular rate-rhythm, systolic murmur (faint BIANCA at card base) Gastrointestinal: No tender; soft; No guarding, No rebound; audible bowel sounds Extremities: No clubbing, No cyanosis, No significant edema Neurologic/Psychiatric: oriented x 3, grossly intact, power is 5/5 both on side s Skin: No rash on exposed areas, No ulcerations on exposed areas Data Review Labs Laboratory Tests 08/31/18 09:59: White Blood Count 12.8H, Red Blood Count 4.26L, Hemoglobin 13.3, Hematocrit 41, Mean Corpuscular Volume 96, Mean Corpuscular Hemoglobin 31, Mean Corpuscular Hemoglobin Concent 33, Red Cell Distribution Width 14.0, Platelet Count 501H, Mean Platelet Volume 9.7, Neutrophils (%) (Auto) 33L, Lymphocytes (%) (Auto) 57H , Monocytes (%) (Auto) 8, Eosinophils (%) (Auto) 2, Basophils (%) (Auto) 1, Neutrophils # (Auto) 4.2, Lymphocytes # (Auto) 7.3H, Monocytes # (Auto) 1.0, Eosinophils # (Auto) 0.3, Basophils # (Auto) 0.1, Prothrombin Time 14.2, INR Comment 1.1, Activated Partial Thromboplast Time 29, Sodium Level 139, Potassium Level 3.9, Chloride Level 98, Carbon Dioxide Level 24, Anion Gap 17H, Blood Urea Nitrogen 14, Creatinine 0.76, Estimat Glomerular Filtration Rate > 60, BUN/Creatinine Ratio 18, Glucose Level 136H, Calcium Level 9.5, Corrected Calcium 9.4, Magnesium Level 1.9, Total Bilirubin 0.4, Aspartate Amino Transf (AST/SGOT) 19, Alanine Aminotransferase (ALT/SGPT) 14, Alkaline Phosphatase 79, Myoglobin < 21.0, Troponin T 15H, Total Protein 7.8, Albumin 4.1, Smear Scan YES Laboratory Tests 08/31/18 09:59 A/P-Cardiology Assessment/Admission Diagnosis Ac inf-post STEMI Chronic tobacco use Mild CAD on cath of 2017 Chronic pain and anxiety H/o COPD Admission Status: Inpatient Order (span 2 midnights) Reason for Inpatient Admission: Ac STEMI Discussion and Recomendations * Emergency cath/PCI. Informed consent obtained * Advised to quit smoking Clinical Quality Measures AMI/AHF: ASA po Prior to arrival: FELA Waite MD FACP FAC CCDS Aug 31, 2018 13:08
--- NOTE | 2018-08-31 13:59 | CARDIAC CATHETERIZATION ---
DATE OF SERVICE: 08/31/2018 CARDIAC CATHETERIZATION AND CORONARY INTERVENTION The patient is a 63-year-old lady who presented to the [facility] within an hour of onset of crushing chest discomfort. She was found to have ST elevation in the inferior leads and ST depression in the posterior leads, indicating acute ST elevation in the inferoposterior myocardial infarction. She was transferred via ambulance to this hospital and was brought directly to the cardiac catheterization laboratory. I spoke with her and explained the cardiac catheterization procedure, its rationale, procedure, risks, benefits, potential complications and alternatives. She provided informed consent. We proceeded with the procedure. PROCEDURE: The right groin was prepared and draped in the usual sterile fashion. Lidocaine 1% for local anesthesia. Modified Seldinger technique was used to advance a 5-Nepalese sheath in right femoral artery. A 5-Nepalese JL4 catheter was used for left coronary angiography. A 5-Nepalese JR4 catheter for right coronary angiography. Subsequently, percutaneous intervention was carried out of the left circumflex artery, which is described below. Following completion of the percutaneous intervention, we carried out left heart catheterization with a 6-Nepalese pigtail catheter. The pigtail was pulled back and removed. Left ventricular angiography was not performed. This is because a considerable amount of contrast had been used (approximately 250 mL) for the diagnostic and interventional coronary procedures. PERCUTANEOUS INTERVENTION TO THE LEFT CIRCUMFLEX ARTERY: The left circumflex artery was occluded in its mid portion. This is a tortuous vessel with a 90 degree origin from the left circumflex artery. We used a 6-Nepalese JL3.5 guide catheter to engage the left coronary artery. We choose a ChoICE floppy wire. This was a very difficult wiring because of the tortuous left circumflex artery and because it has a very difficult angle of origin from the left main coronary artery. We were, finally, able to wire the lesion and carried out balloon angioplasty with Emerge 2.0 x 20 mm balloon, which reduced the stenosis to approximately 70% residual. We removed the balloon and advanced Xience 2.25 x 18 mm stent to the lesion. This was carefully positioned and deployed at 10 atmospheres. Subsequent angiography revealed 0% residual stenosis at the previous site of complete occlusion and normal antegrade flow. However, there appeared to be haziness and approximately 60% to 70% stenosis just distal to the distal edges of the stent. This lesion was stented with Xience 2.25 x 12 mm stent, which slightly overlaps the proximally placed stent. The stent was deployed at 10 atmospheres. The stent overlap was ballooned with the stent balloon at 12 atmospheres. Subsequent angiography revealed 0% residual stenosis at the sites of stent deployment. There was temporary spasm of the distal left circumflex and the proximal left circumflex. This was relieved with 100 mcg of intracoronary nitroglycerin. Overall, she tolerated the procedure well. Angiography of the right femoral artery was carried out through the sheath at the end of the procedure and Mynx was used to achieve hemostasis. She received a double bolus of Integrilin during the procedure and Integrilin infusion was continued throughout the procedure. She had received 324 mg of oral aspirin in the [facility]. She had received 300 mg of oral Plavix in the [facility]. She got additional 300 mg of Plavix after the completion of this interventional procedure. HEMODYNAMICS: Left ventricular end-diastolic pressure following coronary angiography was 28 mmHg. There is no significant pressure gradient on pullback across the aortic valve. Ascending aortic pressure was 101/61 with a mean of 80 mmHg. CORONARY ANGIOGRAPHY: Left main coronary artery does not exhibit significant disease. Left anterior descending artery has 30% to 40% proximal stenosis. Left circumflex artery is occluded in its proximal portion. Following stent deployment (see above for details), there is 0% residual stenosis in the mid left circumflex. The right coronary and the left circumflex artery are codominant. Right coronary artery has mild to moderate diffuse disease. CONCLUSIONS: 1. Coronary artery disease primarily consisting of mid vessel occlusion of the left circumflex artery, which was resulting in acute inferoposterior ST elevation myocardial infarction. This was treated successfully with percutaneous intervention. Following deployment of overlapping 2.25 x 18 mm and 2.25 x 12 mm Xience stents, there is no significant residual stenosis. The rest of the coronary vessels have diffuse mild to moderate disease. 2. Elevated left ventricular end-diastolic pressure. DISCUSSION AND RECOMMENDATIONS: She has been advised to quit smoking immediately and completely. Dual antiplatelet therapy is being continued. Beta blockers and statins will be added as tolerated. She is being hospitalized after the procedure described above. Job ID: [id number] DocumentID: [id number] Dictated Date: 08/31/2018 12:37:38 Certified Pathology Assistant Date: 08/31/2018 13:59:12 Dictated By: SANDRNIE KHANNA MD, MA, FACP, FACC, MTDD
[2018-08-31] MEDS: ATORVASTATIN 40 MG (LIPITOR) TABLET PO SCH (20:55)
[2018-09-01] VITALS (24 sets, daily range): BP systolic 84–112; BP diastolic 49–71
[2018-09-01 03:46] LABS: HEMOGLOBIN 11.1 G/DL (11.5-16.0); RED CELL DISTRIBUTION WIDTH 14.5 % (10.0-14.5); WHITE BLOOD COUNT 11.2 10^3/uL (4.3-11.0)
[2018-09-01 04:02] LABS: BUN/CREATININE RATIO 19; CALCIUM 8.6 MG/DL (8.5-10.1); CARBON DIOXIDE 20 MMOL/L (21-32); CHLORIDE 110 MMOL/L (98-107); GFR ESTIMATED > 60; GLUCOSE 90 MG/DL (70-105); POTASSIUM 4.2 MMOL/L (3.6-5.0); SODIUM 139 MMOL/L (135-145)
[2018-09-01] MEDS: CLOPIDOGREL 75 MG (PLAVIX) TABLET PO SCH (08:33)
[2018-09-01] MEDS: ASPIRIN 81 MG CHEW (CHILDREN'S ASA) PO SCH (08:33)
[2018-09-01] MEDS: lisINopril 5 MG (PRINIVIL) TABLET PO SCH ×2 (08:34→09:00)
--- NOTE | 2018-09-01 12:11 | Progress Note-Cardiology ---
Cardiology SOAP Progress Note Subjective: Sitting up in bed. C/O "soreness" in her chest, but discomfort she came in with has resolved. No c/o dyspnea or palpitations. No c/o right groin discomfort Objective: I&O/Vital Signs 09/01/18 09/01/18 09/01/18 09/01/18 08:00 08:00 09:00 10:00 Pulse 76 80 79 Resp 20 27 20 B/P (MAP) 105/68 (80) 89/61 (70) 90/58 (69) Pulse Ox 96 96 95 O2 Delivery Nasal Cannula Nasal Cannula Nasal Cannula Nasal Cannula O2 Flow Rate 2.00 2.00 2.00 2.00 FiO2 100 09/01/18 09/01/18 09/01/18 09/01/18 11:00 12:00 12:00 12:00 Temp 97.0 Pulse 73 71 Resp 18 18 B/P (MAP) 96/65 (75) 97/65 (76) Pulse Ox 95 96 95 O2 Delivery Nasal Cannula Nasal Cannula Nasal Cannula O2 Flow Rate 2.00 2.00 2.00 09/01/18 09/01/18 09/01/18 09/01/18 13:00 13:00 14:00 15:00 Pulse 68 69 80 85 Resp 22 18 20 B/P (MAP) 100/71 (81) 95/66 (76) 86/52 (63) Pulse Ox 91 92 92 O2 Delivery Nasal Cannula Nasal Cannula Nasal Cannula O2 Flow Rate 2.00 2.00 2.00 09/01/18 09/01/18 09/01/18 09/01/18 16:00 16:00 16:00 17:00 Temp 98.3 Pulse 80 70 Resp 19 13 B/P (MAP) 86/63 (71) 99/68 (78) Pulse Ox 96 97 94 O2 Delivery Nasal Cannula Nasal Cannula Nasal Cannula O2 Flow Rate 2.00 2.00 2.00 09/01/18 09/01/18 18:00 19:46 Pulse 70 Resp 20 B/P (MAP) 105/68 (80) Pulse Ox 92 O2 Delivery Nasal Cannula Nasal Cannula O2 Flow Rate 2.00 2.00 08/31/18 23:59 Intake Total 1580 ml Output Total 100 ml Balance 1480 ml Weight (Pounds): 101 Weight (Ounces): 0.7 Weight (Calculated Kilograms): 45.394012 Side: right Groin site without hematoma: Yes Condition: DP/PT pulses palpable, extremity w/d/p Bruising: mild bruising Constitutional: AAO x 3, well-developed, other (thin-appearing) Respiratory: accessory muscle use, other (fair air entry, prolonged exp) Cardiovascular: regular rate-rhythm, systolic murmur (faint BIANCA at card base) Gastrointestional: No tender; soft; No guarding, No rebound; audible bowel sounds Extremities: No clubbing, No cyanosis, No significant edema Neurologic/Psychiatric: oriented x 3, grossly intact, power is 5/5 both on sides Skin: No rash on exposed areas, No ulcerations on exposed areas Results/Procedures: Labs Laboratory Tests 09/01/18 03:05: White Blood Count 11.2H, Red Blood Count 3.54L, Hemoglobin 11.1L, Hematocrit 34L , Mean Corpuscular Volume 95, Mean Corpuscular Hemoglobin 31, Mean Corpuscular Hemoglobin Concent 33, Red Cell Distribution Width 14.5, Platelet Count 359, Mean Platelet Volume 10.0, Sodium Level 139, Potassium Level 4.2, Chloride Level 110#H, Carbon Dioxide Level 20L, Anion Gap 9, Blood Urea Nitrogen 13, Creatinine 0.70, Estimat Glomerular Filtration Rate > 60, BUN/Creatinine Ratio 19, Glucose Level 90, Calcium Level 8.6 Procedures S/P cardiac cath with successful intervention. Please refer to Dr. Madrid's cardiac cath report for details. A/P: Assessment: Ac inf-post STEMI Coronary artery disease primarily consisting of mid vessel occlusion of the left circumflex artery, which was resulting in acute inferoposterior ST elevation myocardial infarction. This was treated successfully with percutaneous intervention. Following deployment of overlapping 2.25 x 18 mm and 2.25 x 12 mm Xience stents, there is no significant residual stenosis. The rest of the coronary vessels have diffuse mild to moderate disease. Elevated left ventricular end-diastolic pressure. Per cardiac cath of 08-31-18 Chronic tobacco use Chronic pain and anxiety H/o COPD Plan: * Continue ASA, Plavix * Somewhat low BP - will adjust antihypertensives * Echo * Increase activity * Advised to quit smoking Physician Assessment Physician Assessment No cp (save occasional "twinges") or palp or syncope. Shortness of breath better Gen malaise better Lung: good bilat air entry Cor: reg Ext: no c/c/e A&R * As documented in our note above that I updated (italics) and as noted below * I discussed her CV issues with her * Advised to quit smoking immediately and completely Clinical Quality Measures AMI/AHF: ASA po Prior to arrival: No MATEO CARY OBEDIENCE TRAINER Sep 01, 2018 12:11 SANDRINE MADRID MD FACP FAC CCDS Sep 01, 2018 19:55
[2018-09-01] MEDS: ATORVASTATIN 40 MG (LIPITOR) TABLET PO SCH (20:54)
[2018-09-01] MEDS: BUPRENORPHINE 8 MG SL SCH (20:54)
[2018-09-01] MEDS ORDERED: NON-FORMULARY MEDICATION 1 EA EA SL SCH (21:00)
[2018-09-02] VITALS (10 sets, daily range): BP systolic 97–115; BP diastolic 58–73
[2018-09-02 06:25] LABS: HEMOGLOBIN 11.1 G/DL (11.5-16.0); MEAN PLATELET VOLUME 10.2 FL (7.4-10.4); RED CELL DISTRIBUTION WIDTH 14.1 % (10.0-14.5); WHITE BLOOD COUNT 14.3 10^3/uL (4.3-11.0)
[2018-09-02 06:55] LABS: ALANINE AMINOTRANSFERASE 27 U/L (0-55); ALBUMIN 3.5 GM/DL (3.2-4.5); ALKALINE PHOSPHATASE 73 U/L (40-136); BILIRUBIN,TOTAL 0.5 MG/DL (0.1-1.0); BUN/CREATININE RATIO 13; CALCIUM 8.8 MG/DL (8.5-10.1); CARBON DIOXIDE 21 MMOL/L (21-32); CHLORIDE 103 MMOL/L (98-107); CHOLESTEROL 130 MG/DL (< 200); CREATININE SERUM 0.72 MG/DL (0.60-1.30); GFR ESTIMATED > 60; GLUCOSE 103 MG/DL (70-105); HDL CHOLESTEROL 43 MG/DL (40-60); POTASSIUM 3.8 MMOL/L (3.6-5.0); SODIUM 135 MMOL/L (135-145); TOTAL PROTEIN 6.6 GM/DL (6.4-8.2); TRIGLYCERIDES 82 MG/DL (<150); VLDL CHOLESTEROL 16 MG/DL (5-40)
[2018-09-02] MEDS: CLOPIDOGREL 75 MG (PLAVIX) TABLET PO SCH (09:14)
[2018-09-02] MEDS: lisINopril 5 MG (PRINIVIL) TABLET PO SCH (09:14)
[2018-09-02] MEDS: ASPIRIN 81 MG CHEW (CHILDREN'S ASA) PO SCH (09:14)
[2018-09-02] MEDS: BUPRENORPHINE 8 MG SL SCH ×2 (09:22→13:47)
--- NOTE | 2018-09-02 12:13 | NUR ---
Unscheduled [employer] downtime from [id number].
--- NOTE | 2018-09-02 12:20 | Progress Note-Cardiology ---
Cardiology SOAP Progress Note Subjective: Intermittent twinges of L or R parasternal pain, quite different from what she presented with Chronic gen pain, unchanged Chronic exertional shortness of breath No palp or syncope Objective: I&O/Vital Signs 09/02/18 09/02/18 09/02/18 09/02/18 00:53 01:00 02:00 03:00 Pulse 86 85 85 88 B/P (MAP) 98/61 (73) 115/73 (87) 104/63 (77) Pulse Ox 95 92 95 O2 Delivery Nasal Cannula Nasal Cannula Nasal Cannula O2 Flow Rate 2.00 2.00 2.00 09/02/18 09/02/18 09/02/18 09/02/18 03:32 04:00 05:00 06:00 Temp 98.1 98.2 Pulse 85 86 79 72 Resp 18 20 B/P (MAP) 100/65 (77) 107/69 (82) 107/58 (74) 114/70 (85) Pulse Ox 100 97 98 91 O2 Delivery Nasal Cannula Nasal Cannula Nasal Cannula Nasal Cannula O2 Flow Rate 2.00 2.00 2.00 2.00 09/02/18 09/02/18 06:30 07:00 Pulse 73 65 B/P (MAP) 105/67 (80) Pulse Ox 92 O2 Delivery Nasal Cannula O2 Flow Rate 2.50 09/01/18 23:59 Intake Total 1320 ml Output Total 900 ml Balance 420 ml Weight (Pounds): 100 Weight (Ounces): 2.0 Weight (Calculated Kilograms): 45.855676 Side: right Groin site without hematoma: Yes Condition: DP/PT pulses palpable, extremity w/d/p Bruising: mild bruising Constitutional: AAO x 3, well-developed, other (thin-appearing) Respiratory: accessory muscle use, other (fair air entry, prolonged exp) Cardiovascular: regular rate-rhythm, systolic murmur (faint BIANCA at card base) Gastrointestional: No tender; soft; No guarding, No rebound; audible bowel sounds Extremities: No clubbing, No cyanosis, No significant edema Neurologic/Psychiatric: oriented x 3, grossly intact, power is 5/5 both on sides Skin: No rash on exposed areas, No ulcerations on exposed areas Results/Procedures: Labs Laboratory Tests 09/02/18 05:25: White Blood Count 14.3H, Red Blood Count 3.57L, Hemoglobin 11.1L, Hematocrit 34L , Mean Corpuscular Volume 94, Mean Corpuscular Hemoglobin 31, Mean Corpuscular Hemoglobin Concent 33, Red Cell Distribution Width 14.1, Platelet Count 319, Mean Platelet Volume 10.2, Sodium Level 135, Potassium Level 3.8, Chloride Level 103, Carbon Dioxide Level 21, Anion Gap 11, Blood Urea Nitrogen 9, Creatinine 0.72, Estimat Glomerular Filtration Rate > 60, BUN/Creatinine Ratio 13, Glucose Level 103, Calcium Level 8.8, Corrected Calcium 9.2, Total Bilirubin 0.5, Aspartate Amino Transf (AST/SGOT) 98H, Alanine Aminotransferase (ALT/SGPT) 27, Alkaline Phosphatase 73, Total Protein 6.6, Albumin 3.5, Triglycerides Level 82, Cholesterol Level 130, LDL Cholesterol Direct 74, VLDL Cholesterol 16, HDL Ch olesterol 43 A/P: Assessment: Ac inf-post STEMI on 08/31/18 Card cath on 08-31-18: Coronary artery disease primarily consisting of mid vessel occlusion of the left circumflex artery, which was resulting in acute inferoposterior ST elevation myocardial infarction. This was treated successfully with percutaneous intervention. Following deployment of overlapping 2.25 x 18 mm and 2.25 x 12 mm Xience stents, there is no significant residual stenosis. The rest of the coronary vessels have diffuse mild to moderate disease. Elevated left ventricular end-diastolic pressure. Echo of 09-01-18: LVEF 55-60%, mild MR, PASP 45 mmHg Mod pulm htn, etiology undetermined, probably related to chronic pulm dz, further w/u advised with pcp Chronic tobacco use, advised to quit immediately and completely Chronic pain and anxiety H/o COPD Plan: * I had a long and detailed discussion with her regarding her cardiac findings, interventions done, and future plans * We discussed the rationale, pros and cons of current meds and advised compliance with meds, in particular her aspirin and clopidogrel * Advised to quit smoking * Outpt f/u advised Clinical Quality Measures AMI/AHF: ASA po Prior to arrival: SANDRINE Waite MD FACP FAC CCDS Sep 02, 2018 12:20
--- NOTE | 2018-09-02 12:24 | Cardiology Discharge Summary ---
Diagnosis/Chief Complaint Date of Admission 08/31/18 Date of Discharge 09/02/18 Final/Discharge Diagnosis Ac inf-post STEMI on 08/31/18 Card cath on 08-31-18: Coronary artery disease primarily consisting of mid vessel occlusion of the left circumflex artery, which was resulting in acute inferoposterior ST elevation myocardial infarction. This was treated successfully with percutaneous intervention. Following deployment of overlapping 2.25 x 18 mm and 2.25 x 12 mm Xience stents, there is no significant residual stenosis. The rest of the coronary vessels have diffuse mild to moderate disease. Elevated left ventricular end-diastolic pressure. Echo of 09-01-18: LVEF 55-60%, mild MR, PASP 45 mmHg Mod pulm htn, etiology undetermined, probably related to chronic pulm dz, further w/u advised with pcp Chronic tobacco use, advised to quit immediately and completely Chronic pain and anxiety H/o COPD Chief Complaint/HPI Chief Complaint/HPI CC: Chest pain HPI: 63 yo woman with sudden onset of crushing midsternal pain associated with diaphoresis and shortness of breath and radiation to jaws and shoulders. Never experienced before. Went to [facility] ER, was diagnosed with Ac STEMI and sent to us. Still having cp upon arrival. Has chronic exertional shortness of breath. No palp or syncope. Has chronic gen pain Please see my note of today's date for condition at discharge and for hosp course Discharge Summary Procedures Card cath and cor intervention on 08/31/18 Hospital Course Pending Labs Laboratory Tests 09/02/18 05:25: White Blood Count 14.3, Red Blood Count 3.57, Hemoglobin 11.1, Hematocrit 34, Mean Corpuscular Volume 94, Mean Corpuscular Hemoglobin 31, Mean Corpuscular Hemoglobin Concent 33, Red Cell Distribution Width 14.1, Platelet Count 319, Mean Platelet Volume 10.2, Sodium Level 135, Potassium Level 3.8, Chloride Level 103, Carbon Dioxide Level 21, Anion Gap 11, Blood Urea Nitrogen 9, Creatinine 0.72, Estimat Glomerular Filtration Rate > 60, BUN/Creatinine Ratio 13, Glucose Level 103, Calcium Level 8.8, Corrected Calcium 9.2, Total Bilirubin 0.5, Aspartate Amino Transf (AST/SGOT) 98, Alanine Aminotransferase (ALT/SGPT) 27, Alkaline Phosphatase 73, Total Protein 6.6, Albumin 3.5, Triglycerides Level 82, Cholesterol Level 130, LDL Cholesterol Direct 74, VLDL Cholesterol 16, HDL Cholesterol 43 Discussion & Recommendations Home Medications Reviewed patient Home Medication Reconciliation performed by pharmacy medication reconciliations strain technician and/or nursing. Patients Allergies have been reviewed. Discharge Home Medications: Reviewed and agree with Discharge Medication list on patient's Discharge Instruction sheet Clinical Quality Measures AMI/AHF: ASA po Prior to arrival: No DVT/VTE Risk/Contraindication: Risk Factor Score Per Nursin RFS Level Per Nursing on Admit: 4+=Very High SANDRINE KHANNA MD FACP FACC CCDS Sep 02, 2018 12:24
[2018-09-02] MEDS ORDERED: CLOP75TA28 PO (12:33)
[2018-09-02] MEDS ORDERED: ATOR40TA PO (12:33)
[2018-09-02] MEDS ORDERED: METO-387 PO (12:33)
--- NOTE | 2018-09-02 12:35 | Discharge Inst-Cardiology ---
Discharge Inst-Cardiac Discharge Medications New Medications: Atorvastatin Calcium (Lipitor) 40 Mg Tablet 40 MG PO HS, #30 TAB 5 Refills Clopidogrel Bisulfate (Clopidogrel) 75 Mg Tablet 75 MG PO DAILY, #30 TAB 5 Refills Metoprolol Succinate (Metoprolol Succinate) 25 Mg Tab.er.24h 12.5 MG PO DAILY, #30 TAB 5 Refills Continued Medications: Aspirin (Aspir 81) 81 Mg Tablet.dr 81 MG PO DAILY, TAB Buprenorphine HCl (Buprenorphine HCl) 8 Mg Tab.subl 8 MG SL TID, TAB Cetirizine HCl (Cetirizine HCl) 10 Mg Tablet 10 MG PO DAILY, TAB Duloxetine HCl (Duloxetine HCl) 60 Mg Capsule.dr 120 MG PO DAILY, CAP TAKE 2 (60MG) TABS Fluticasone/Umeclidin/Vilanter (Trelegy Ellipta 100-62.5-25) 1 Each Blst.w.dev 1 EACH IH DAILY Ipratropium/Albuterol Sulfate (Iprat-Albut 0.5-3(2.5) mg/3 ml) 3 Ml Ampul.neb 3 ML IH Q4H PRN for SHORTNESS OF BREATH, EACH Lubiprostone (Amitiza) 24 Mcg Capsule 24 MCG PO BID, CAP Nitroglycerin (Nitroglycerin) 0.4 Mg Tab.subl 0.4 MG SL PRN PRN for CHEST PAIN, TAB Discontinued Medications: Atorvastatin Calcium (Atorvastatin Calcium) 20 Mg Tablet 20 MG PO HS, TAB Diclofenac Sodium (Diclofenac Sodium) 75 Mg Tablet.dr 75 MG PO BID, TAB Metoprolol Succinate (Metoprolol Succinate) 25 Mg Tab.er.24h 25 MG PO HS, TAB New, Converted or Re-Newed RX: Transmitted to Pharmacy Patient Instructions Patient Instructions: Please schedule follow up appointment with Dr. Madrid in 2 weeks MATEO CARY Sep 02, 2018 12:35
== END 2018-09-02 15:40 | disposition home or self-care (01) ==
LOC: EDUNIT# 09:49 → ER FS 09:50 → CATH 10:45 → ICU 12:57 → 4TH 09-01 19:53 → CATH 09-02 15:40
PROVIDERS: ATTEND Internal Medicine Cardiovascular Disease
DX: I21.19 ST elevation (STEMI) myocardial infarction involving other coronary artery of inferior wall (principal); I27.20 Pulmonary hypertension, unspecified; G89.29 Other chronic pain; F41.9 Anxiety disorder, unspecified; J43.9 Emphysema, unspecified; M19.91 Primary osteoarthritis, unspecified site; I25.10 Atherosclerotic heart disease of native coronary artery without angina pectoris; F17.210 Nicotine dependence, cigarettes, uncomplicated; M79.7 Fibromyalgia; L30.9 Dermatitis, unspecified; F32.9 Major depressive disorder, single episode, unspecified; Z79.899 Other long term (current) drug therapy; Z79.82 Long term (current) use of aspirin; Z85.41 Personal history of malignant neoplasm of cervix uteri
CPT/HCPCS: 36415; 80053; 80061; 83735; 83874; 84484; 85025; 85027; 85610; 85730; 87081; 93005; 93041; 93306; 93458

== ENCOUNTER 2018-12-25 11:48 | Outpatient (RCR) | payer MEDICAID, OTHER ==
[~2018-12-25 11:48] MED LIST changes: +ATOR40TA PO; +CLOP75TA28 PO; -DULO30CA48 PO; +DULO30CA49 PO; -DULO60CA58 PO; +DULO60CA59 PO
== END 2018-12-27 | disposition home or self-care (01) ==
LOC: CR 11:48
PROVIDERS: ATTEND Internal Medicine Cardiovascular Disease
DX: Z09 Encounter for follow-up examination after completed treatment for conditions other than malignant neoplasm (principal); I25.2 Old myocardial infarction
CPT/HCPCS: 93798

== ENCOUNTER 2018-12-28 11:00 | Outpatient (RCR) | payer MEDICAID, OTHER | END 2019-03-28 | disposition home or self-care (01) | LOC: CR 11:00 | PROVIDERS: ATTEND Internal Medicine Cardiovascular Disease | DX: Z09 Encounter for follow-up examination after completed treatment for conditions other than malignant neoplasm (principal); I25.2 Old myocardial infarction | CPT/HCPCS: 93798 ==

== ENCOUNTER 2019-10-19 09:00 | Day surgery (SDC) | payer MEDICAID, MEDICARE ==
[~2019-10-19] VITALS: Ht 147.3 cm; Wt 50.0 kg
[2019-10-19] VITALS (8 sets, daily range): BP systolic 125–140; BP diastolic 70–89
[~2019-10-19 09:00] MED LIST changes: -METO-387 PO; -MORP60TA52; +MORP60TA69; +MTP25TSR PO
[2019-10-19] MEDS ORDERED: LIDOCAINE 1% INJ 20 ML 20 ML VIAL ONE (09:12)
[2019-10-19] MEDS ORDERED: HEParin (CATH LAB) 2,000 ML IV ONE (09:12)
[2019-10-19] MEDS ORDERED: NS IV 1000 ML 1,000 ML ONE (09:12)
[2019-10-19] MEDS ORDERED: NS IV 1000 ML 1,000 ML IV SCH ×2 (09:30→11:43)
[2019-10-19 09:45] LABS: HEMOGLOBIN 13.3 G/DL (11.5-16.0); MEAN PLATELET VOLUME 9.4 FL (7.4-10.4); RED CELL DISTRIBUTION WIDTH 13.8 % (10.0-14.5); WHITE BLOOD COUNT 11.2 10^3/uL (4.3-11.0)
[2019-10-19 09:57] LABS: PROTHROMBIN TIME PATIENT 13.3 SEC (12.2-14.7)
[2019-10-19 10:02] LABS: ALANINE AMINOTRANSFERASE 13 U/L (0-55); ALBUMIN 3.7 GM/DL (3.2-4.5); ALKALINE PHOSPHATASE 99 U/L (40-136); BILIRUBIN,TOTAL 0.2 MG/DL (0.1-1.0); BUN/CREATININE RATIO 20; CALCIUM 8.9 MG/DL (8.5-10.1); CARBON DIOXIDE 23 MMOL/L (21-32); CHLORIDE 107 MMOL/L (98-107); CHOLESTEROL 147 MG/DL (< 200); CREATININE SERUM 0.92 MG/DL (0.60-1.30); GFR ESTIMATED > 60; GLUCOSE 100 MG/DL (70-105); HDL CHOLESTEROL 58 MG/DL (40-60); POTASSIUM 4.6 MMOL/L (3.6-5.0); SODIUM 140 MMOL/L (135-145); TOTAL PROTEIN 6.9 GM/DL (6.4-8.2); TRIGLYCERIDES 86 MG/DL (<150); VLDL CHOLESTEROL 17 MG/DL (5-40)
[2019-10-19] MEDS ORDERED: FLUT1DIS26 IH (10:10)
[2019-10-19] MEDS ORDERED: fentaNYL INJECTION 100 MCG/2 ML AMP ONE (10:52)
[2019-10-19] MEDS ORDERED: MIDAZOLAM 5 MG/5 ML (VERSED) VIAL ONE (10:52)
--- NOTE | 2019-10-19 11:14 | Cardiac Procedure Note-CS/ASA ---
Pre-Procedure Note Pre-Op Procedure Note H&P Reviewed The H&P was reviewed, patient examined and no changes noted. Date H&P Reviewed: Oct 19, 2019 Time H&P Reviewed: 11:14 Conscious Sedation Pre-Proced Time 11:14 ASA Score 3 For ASA 3 and 4: Consider anesthesia and medical clearance. Also, for patients with a history of failed moderate sedation consider anesthesia. Airway Lungs Heart ASA score ASA 1: a normal healthy patient ASA 2: a patient with a mild systemic disease (mid diabetes, controlled hypertension, obesity ASA 3: a patient with a severe systemic disease that limits activity (angina, COPD, prior Myocardial infarction) ASA 4: a patient with an incapacitating disease that is a constant threat to life (CHF, renal failure) ASA 5: a moribund patient not expected to survive 24 hrs. (ruptured aneurysm) ASA 6: a declared brain- patient whose organs are being harvested. For emergent operations, add the letter E after the classification Mallampati Classification Grade 2 Sedation Plan Analgesia, Amnesia, Plan communicated to team members, Discussed options with patient/fam, Discussed risks with patient/fam The patient is an appropriate candidate to undergo the planned procedure, sedation, and anesthesia. The patient immediately re-assessed prior to indication. SANDRINE KHANNA MD FACP FAC CCDS Oct 19, 2019 11:14
[2019-10-19] MEDS ORDERED: PATIENT MAY USE OWN MEDS, ALL PO SCH (11:45)
--- NOTE | 2019-10-19 11:46 | Discharge Inst-Post CATH ---
Discharge Inst-CATH/EP Post Cardiac Cath/EP D/C Inst Follow Up/Plan F/u with Dr Madrid in 2 weeks No tobacco use ACTIVITY * Go Home directly and rest. * Limit activity of the leg (or wrist if it was used) for 7 days including aerobics, swimming, jogging, bicycling, etc. * Restrict stair-climbing for 7 days if possible, if not, climb up with your non-cath leg, then bring together on the same step. * Avoid lifting, pushing, pulling or excessive movement of the affected extremity for 7 days. * Customary sexual activity may be resumed after 2 days-use caution not to use a position that strains or causes pain to the affected extremity. * No driving for 24 hours. * NO SMOKING. * Avoid straining for bowel movements for 7 days. * Gentle walking on level ground is allowed. * Returning to work will depend on the type of procedure and the results. Your doctor will discuss this with you. CALL YOUR DOCTOR FOR ANY OF THE FOLLOWING: *If bleeding from the puncture site occurs- Apply gentle pressure to site with clean cloth and call your doctor or EMS. * If a knot or lump forms under the skin, increases in size, or causes pain. * If bruising appears to be worsening or moving further down your leg instead of disappearing. * Temperature above 101 F. CARE OF YOUR GROIN INCISION; * Bruising or purple discoloration of the skin near the puncture site is common. * You may shower only, no bathtub bathing for 5 days. Be careful to avoid slipping as your leg may feel stiff. * If a closure device was used on your femoral artery, please see the attached guide regarding care of the device and your leg. * Leave dressing on FOR 24 hours. CARE OF YOUR WRIST INCISION; * Bruising or purple discoloration of the skin near the puncture site is common. * You may shower. * DO NOT submerge wrist. * Leave dressing on FOR 24 hours. SANDRINE MADRID MD [facility] CCDS Oct 19, 2019 11:46
--- NOTE | 2019-10-19 11:46 | Discharge Inst-Cardiology ---
Discharge Inst-Cardiac Discharge Medications Continued Medications: Aspirin (Aspir 81) 81 Mg Tablet.dr 81 MG PO DAILY, TAB Atorvastatin Calcium (Lipitor) 40 Mg Tablet 40 MG PO HS, #30 TAB 5 Refills Buprenorphine HCl (Buprenorphine HCl) 8 Mg Tab.subl 8 MG SL TID, TAB Cetirizine HCl (Cetirizine HCl) 10 Mg Tablet 10 MG PO DAILY, TAB Clopidogrel Bisulfate (Clopidogrel) 75 Mg Tablet 75 MG PO DAILY, #30 TAB 5 Refills Duloxetine HCl (Duloxetine HCl) 60 Mg Capsule.dr 120 MG PO DAILY, CAP TAKE 2 (60MG) TABS Fluticasone/Salmeterol (Advair 250-50 Diskus) 1 Each Blst.w.dev 1 EACH IH Q12H Ipratropium/Albuterol Sulfate (Iprat-Albut 0.5-3(2.5) mg/3 ml) 3 Ml Ampul.neb 3 ML IH Q4H PRN for SHORTNESS OF BREATH, EACH Metoprolol Succinate (Metoprolol Succinate) 25 Mg Tab.er.24h 12.5 MG PO DAILY, #30 TAB 5 Refills Nitroglycerin (Nitroglycerin) 0.4 Mg Tab.subl 0.4 MG SL PRN PRN for CHEST PAIN, TAB SANDRINE KHANNA MD FACP FAC CCDS Oct 19, 2019 11:46
--- NOTE | 2019-10-19 12:21 | CARDIAC CATHETERIZATION ---
DATE OF SERVICE: 10/19/2019 CARDIAC CATHETERIZATION AND CORONARY ANGIOGRAPHY REPORT The patient is a 64-year-old lady who is known to have coronary artery disease. She has recently been experiencing symptoms that she feels are consistent with her previous angina. Cardiac catheterization was carried out today after having obtained an informed consent. DESCRIPTION OF PROCEDURE: She was brought to the cardiac catheterization laboratory in a fasting state. Right groin was prepared and draped in the usual sterile fashion. Lidocaine 1% used for local anesthesia. Modified Seldinger technique was used to advance a 5-Chinese sheath in the right femoral artery, 5-Chinese JL4 catheter was used for left coronary angiography, 5-Chinese JR4 catheter used for right coronary angiography, 5-Chinese pigtail catheter was used for left heart catheterization and left ventricular angiography. Pigtail catheter was pulled back and removed. Angiography of right femoral artery was carried out through the sheath. Mynx was used to achieve hemostasis. She tolerated the procedure well. HEMODYNAMICS: Left ventricular end-diastolic pressure following coronary angiography was 8 mmHg. There was no significant pressure gradient on pullback across the aortic valve. Ascending aortic pressure was 113/66 with a mean of 88 mmHg. CORONARY ANGIOGRAPHY: Left main coronary artery is free of significant disease. Left anterior descending artery is free of significant disease. Left circumflex artery has a patent stented segment in its mid portion. Right coronary artery is small in caliber and dominant. There are mild diffuse plaques involving all coronary vessels. LEFT VENTRICULAR ANGIOGRAPHY: Left ventricular angiography was carried out in the right and left anterior oblique projections. Global left ventricular systolic function normal. No regional wall motion abnormalities seen. Left ventricular ejection fraction approximately 65%. CONCLUSIONS: 1. Angiographically mild coronary artery disease. 2. Patent stents in the mid left circumflex that are known to be overlapping Alpine Xience 2.25 x 18 and 2.25 x 12 mm stents that were placed in 08/2018. 3. Normal global left ventricular systolic function with ejection fraction of 65%. 4. Normal left ventricular end-diastolic pressure. DISCUSSION AND RECOMMENDATIONS: Based on results of the study, it appears appropriate to continue a conservative approach. Risk factor modification has been reviewed. Outpatient followup is advised. Job ID: [id number] DocumentID: [id number] Dictated Date: 10/19/2019 11:51:02 Exhibit Technician Date: 10/19/2019 12:20:26 Dictated By: SANDRINE KHANNA MD, MA, FACP, FACC,
--- OUTSIDE RECORDS SUMMARY | 2019-10-19 12:27 | XMS REPORT ---
Author Author Elizabeth ABRAMS Organization [facility] Address [address] [place] [address] Care Team Providers Care Purification Director Name Role Phone ALIZA JOSS Unavailable PROBLEMS Type Condition ICD9-CM Code DZI22-KC Code Onset Dates Condition S tatus SNOMED Code Problem Coronary artery disease invo lving [place] coronary artery of [place] heart with unstable angina pectoris I25.110 Active 7824037207733 Problem Sinusitis chronic, frontal J32.1 Act raisa 78508907 Problem Hypertension, unspecified type I10 Active 08045527 Problem Claudication of both lower extremities I73.9 Active 11546723 Problem Rheumatoid arthritis with rh eumatoid factor 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 M05.751 Active 23720 5006 Problem Needs smoking cessation education F17.200 Active 678997548 Problem Basal cell carcinoma of nose C44.311 A ctive 228973459 Problem Spondylitis, cervical M46.92 Active 341871067 Problem Inflammatory arthritis M19.90 Active 0549746 Problem Generalized anxiety disorder F41.1 A ctive 42501446 Problem Constipation K59.00 Active 4544578 8 Problem Chronic insomnia F51.04 Active 724 751587 Problem Uncomplicated opioid dependence F11.20 Active 57491195 Problem Mild episode of recurrent major depressive disorder F33.0 Active 697596530 Problem Arthritis M19.90 Active 1091238 Problem Drug induced constipation K59.03 Acti ve 847665791785638 Problem Anxiety F41.9 Active 12274557 Problem Fibromyalgia M79.7 Active 6878521 05 Problem Angina at rest I20.8 Active 93917 8000 Problem 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 Active 0834248485878879 Problem Rotator cuff arthropathy of left shoulder M12.812 Active 06745659756224378 Problem Conductive hearing loss of l eft 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 H90.12 Active 608673381 Problem Chronic pain syndrome G89.4 Active 621527218 ALLERGIES No Information ENCOUNTERS Encounter Location Date Diagnosis [facility] [place] [facility] [address] [facility] [place] [address] Nov, [facility] [address] [facility] [id number] [address] [place] [address] Oct, Coronary artery disease invo lving [place] coronary artery of [place] heart with unstable angina pectoris I25.110 ; Pain in left hip M25.552 and Basal cell carcinoma of nose C44.311 [facility] [address] [facility] [id number] [address] [place] [address] Oct, [facility] [address] [facility] [id number] [address] [place] [address] July, Pain in left hip M25.552 and Drug induced constipation K59.03 [facility] [address] [facility] [id number] [address] [place] [address] July, Fibromyalgia M79.7 and Basal cell carcinoma of nose C44.311 [facility] [address] [facility] [id number] [address] [place] [address] Jun, Pain in left hip M25.552 [facility] [address] [facility] [id number] [address] [place] [address] May, Pain in left hip M25.552 ; P ain in right hip M25.551 ; Adverse effect of other opioids, initial encounter T40.2X5A and Drug induced constipation K59.03 [facility] [address] [facility] [id number] [address] [place] [address] May, [facility] [address] [facility] [id number] [address] [place] [address] May, [facility] [address] [facility] [id number] [address] [place] [address] Apr, [facility] [address] [facility] [id number] [address] [place] [address] Apr, Adverse effect of other opio ids, initial encounter T40.2X5A ; Drug induced constipation K59.03 and Uncomplicated opioid dependence F11.20 [facility] [address] [id number] [address] [place] [address] Apr, Uncomplicated opioid depende nce F11.20 [facility] [address] [id number] [address] [place] [address] Mar, Uncomplicated opioid depende nce F11.20 [facility] [address] [facility] [id number] [address] [place] [address] Mar, Uncomplicated opioid depende nce F11.20 [facility] [address] [facility] [id number] [address] [place] [address] Mar, Chronic pain syndrome G89.4 ; Uncomplicated opioid dependence F11.20 ; Coronary artery disease involving [place] coronary artery of [place] heart with unstable angina pectoris I25.110 ; Hypertension, unspecified type I10 and Constipation K59.00 [facility] [address] [facility] [id number] [address] [place] [address] Mar, [facility] [address] [facility] [id number] [address] [place] [address] Mar, Rotator cuff arthropathy of left shoulder M12.812 [facility] [address] [facility] [id number] [address] [place] [address] Mar, Uncomplicated opioid depende nce F11.20 [facility] [address] [facility] [id number] [address] [place] [address] Mar, Uncomplicated opioid depende nce F11.20 [facility] [address] [facility] [id number] [address] [place] [address] Mar, [facility] [address] [facility] [id number] [address] [place] [phone] Mar, [facility] [address] [facility] [id number] [address] [place] [address] Mar, Chronic pain syndrome G89.4 and Uncomplicated opioid dependence F11.20 [facility] [address] [facility] [id number] [address] [place] [address] Mar, Generalized anxiety disorder F41.1 and Mild episode of recurrent major depressive disorder F33.0 [facility] [address] [facility] [id number] [address] [place] [address] Mar, Bloody stools K92.1 [facility] [address] [facility] [id number] [address] [place] [address] Feb, [facility] [address] [facility] [id number] [address] [place] [address] Feb, [facility] [address] [place] [id number] [address] [place] [address] Feb, [facility] [address] [facility] [id number] [address] [place] [phone] Feb, [facility] [address] [place] [id number] [address] [place] [address] Feb, [facility] [address] [facility] [id number] [address] [place] [address] Feb, Right otitis media with effu gauri H65.91 and Nevoid hyperpigmentation L81.9 [facility] [address] [place] [id number] [address] [place] [address] Jan, [facility] [address] [facility] [id number] [address] [place] [address] Jan, [facility] [address] [facility] [id number] [address] [place] [address] Jan, [facility] [address] [facility] [id number] [address] [place] [address] Jan, [facility] [address] [place] [id number] [address] [place] [address] Jan, Fibromyalgia M79.7 [facility] [address] [place] [id number] [address] [place] [address] Jan, Rotator cuff arthropathy of left shoulder M12.812 [facility] [address] [id number] [address] [place] [address] Jan, Fibromyalgia M79.7 ; Spondyl itis, cervical M46.92 ; Inflammatory arthritis M19.90 and Seborrheic keratoses L82.1 [facility] [address] [id number] [address] [place] [address] Jan, [facility] [address] [id number] [address] [place] [address] Jan, [facility] [address] [id number] [address] [place] [address] Jan, Generalized anxiety disorder F41.1 and Mild episode of recurrent major depressive disorder F33.0 [place] [address] [facility] [id number] [address] [place] [address] Dec, Chronic pain syndrome G89.4 [place] [address] [facility] [id number] [address] [place] [address] Dec, [place] [address] [facility] [id number] [address] [place] [address] Dec, Arthritis M19.90 ; Fibromyal angel M79.7 ; Anxiety F41.9 ; Dizziness R42 ; Conductive hearing loss of left 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 H90.12 and Encounter for immunization Z23 [facility] [address] [facility] [id number] [address] [place] [address] Dec, Rotator cuff arthropathy of left shoulder M12.812 [facility] [address] [facility] [id number] [address] [place] [address] Dec, Chronic pain syndrome G89.4 [facility] [address] [facility] [id number] [address] [place] [address] Dec, Rotator cuff arthropathy of left shoulder M12.812 [facility] [address] [facility] [id number] [address] [place] [address] Dec, Acute midline thoracic back pain M54.6 ; Chronic pain syndrome G89.4 and Dizziness R42 [facility] [address] [id number] [address] [place] [address] Dec, [facility] [address] [id number] [address] [place] [address] Dec, [facility] [address] [id number] [address] [place] [address] Nov, Rotator cuff arthropathy of left shoulder M12.812 [facility] [address] [id number] [address] [place] [address] Nov, Chronic insomnia F51.04 ; No n-healing skin lesion of nose L98.9 ; BPPV (benign paroxysmal positional vertigo), left H81.12 ; Constipation K59.00 and 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 [place] [address] [facility] [id number] [address] [place] [address] Nov, Arthritis M19.90 and Anxiety F41.9 [place] [address] [facility] [id number] [address] [place] [address] Nov, Generalized anxiety disorder F41.1 and Mild episode of recurrent major depressive disorder F33.0 [place] [address] [facility] [id number] [address] [place] [address] Nov, Spondylitis, cervical M46.92 [place] [address] [facility] [id number] [address] [place] [address] Oct, [place] [address] [id number] [address] [place] [address] Oct, Basal cell carcinoma of nose C44.311 [place] [address] [facility] [id number] [address] [place] [address] Oct, Spondylitis, cervical M46.92 and Anxiety F41.9 [place] [address] [facility] [id number] [address] [place] [address] Oct, Generalized anxiety disorder F41.1 and Mild episode of recurrent major depressive disorder F33.0 [facility] [address] [id number] [address] [place] [address] Oct, Rotator cuff arthropathy of left shoulder M12.812 [facility] [address] [id number] [address] [place] [address] Oct, Spondylitis, cervical M46.92 [facility] [address] [id number] [address] [place] [address] Oct, [facility] [address] [id number] [address] [place] [address] Sep, Basal cell carcinoma of nose C44.311 [facility] [address] [id number] [address] [place] [address] Sep, Generalized anxiety disorder F41.1 and Mild episode of recurrent major depressive disorder F33.0 [facility] [address] [id number] [address] [place] [address] Sep, Spondylitis, cervical M46.92 and Anxiety F41.9 [facility] [address] [id number] [address] [place] [address] Sep, [facility] [address] [id number] [address] [place] [address] Aug, Rotator cuff arthropathy of left shoulder M12.812 [facility] [address] [id number] [address] [place] [address] Aug, Lesion of nose J34.89 [facility] [address] [id number] [address] [place] [address] Aug, Spondylitis, cervical M46.92 ; Fibromyalgia M79.7 and 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 [facility] [address] [id number] [address] [place] [address] Aug, Fibromyalgia M79.7 [facility] [address] [id number] [address] [place] [address] Aug, Fibromyalgia M79.7 [facility] [address] [id number] [address] [place] [address] Aug, [facility] [address] [id number] [address] [place] [address] July, [facility] [address] [id number] [address] [place] [address] July, [facility] [address] [id number] [address] [place] [address] July, Arthritis M19.90 [place] [address] [facility] [id number] [address] [place] [address] July, Inflammatory arthritis M19.9 0 [place] [address] [facility] [id number] [address] [place] [address] Jun, Inflammatory arthritis M19.9 0 [place] [address] [facility] [id number] [address] [place] [address] Jun, Arthritis M19.90 [facility] [address] [facility] [id number] [address] [place] [phone] May, Rheumatoid arthritis with rh eumatoid factor 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 M05.751 ; Rheumatoid arthritis of left hip without organ or system involvement with positive rheumatoid factor M05.752 ; Chest pain, unspecified type R07.9 and Needs smoking cessation education F17.200 [place] [address] [id number] [address] [place] [address] May, [facility] [address] [id number] [address] [place] [address] May, Arthritis M19.90 [facility] [address] [facility] [id number] [address] [place] [address] May, Chest pain, unspecified type R07.9 ; Dyspnea on exertion R06.09 ; Claudication of both lower extremities I73.9 ; Hypertension, unspecified type I10 and Tobacco use Z72.0 [facility] [address] [id number] [address] [place] [address] Apr, Arthritis M19.90 [facility] [address] [id number] [address] [place] [address] Apr, Arthritis M19.90 [facility] [address] [id number] [address] [place] [address] Apr, Sinusitis chronic, frontal J 32.1 ; Coronary artery disease involving [place] coronary artery of [place] heart with unstable angina pectoris I25.110 ; Arthritis M19.90 and Fibromyalgia M79.7 [facility] [address] [id number] [address] [place] [phone] 09 Apr, 2017 Sinusitis chronic, frontal J 32.1 ; Coronary artery disease involving [place] coronary artery of [place] heart with unstable angina pectoris I25.110 ; Arthritis M19.90 and Fibromyalgia M79.7 [facility] [address] [id number] [address] [place] [address] Mar, [facility] [address] [id number] [address] [place] [address] Mar, Arthritis M19.90 [facility] [address] [facility] [id number] [address] [place] [address] Mar, Angina at rest I20.8 [facility] [address] [id number] [address] [place] [address] Mar, Arthritis M19.90 [facility] [address] [id number] [address] [place] [address] Mar, [facility] [address] [facility] [id number] [address] [place] [address] Feb, [facility] [address] [facility] [id number] [address] [place] [address] Feb, [facility] [address] [facility] [id number] [address] [place] [address] Feb, Arthritis M19.90 [facility] [address] [facility] [id number] [address] [place] [address] Feb, Left foot pain M79.672 and A cute left ankle pain M25.572 [facility] [address] [id number] [address] [place] [address] Jan, [facility] [address] [facility] [id number] [address] [place] [address] Jan, Arthritis M19.90 ; Spondylit is, cervical M46.92 ; Fibromyalgia M79.7 and Family history of hypothyroidism Z83.49 [place] [address] [facility] [id number] [address] [place] [address] Sep, Dental caries K02.9 [place] [address] [facility] [id number] [address] [place] [address] Aug, Dental examination Z01.20 [place] [address] [facility] [id number] [address] [place] [address] Apr, Dental examination Z01.20 an d Dental caries K02.9 [place] [address] [facility] [id number] [address] [place] [address] Apr, Dental caries K02.9 [place] [address] [facility] [id number] [address] [place] [phone] 08 Apr, 2015 Dental examination Z01.20 IMMUNIZATIONS No Known Immunizations SOCIAL HISTORY Never Assessed REASON FOR VISIT REFERRAL PLAN OF CARE VITAL SIGNS MEDICATIONS Unknown Medications RESULTS No Results PROCEDURES No Known procedures INSTRUCTIONS MEDICATIONS ADMINISTERED No Known Medications MEDICAL (GENERAL) HISTORY Type Description Date Medical History Pneumonia Medical History Back and neck pain Medical History fibromyalgia Medical History Severe OA Medical History COPD Medical History emphysema Medical History "nocturnal hypoxemia" Medical History Coronary artery disease invo lving [place] coronary artery of [place] heart with unstable angina pectoris Medical History heart attack Surgical History Heart Cath no stents needed 05/2017 Surgical History heart cath with stents 09/02 Hospitalization History Chest Pain observation 2013 Hospitalization History Cervical Surgery 1997 Hospitalization History [facility] 01/2018 Hospitalization History [facility] 09/02
--- OUTSIDE RECORDS SUMMARY | 2019-10-19 12:27 | XMS REPORT ---
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.110 Active [id number] Problem Sinusitis chronic, frontal J32.1 Act raisa [id number] Problem Hypertension, unspecified type I10 Active 54038708 Problem Claudication of both lower extremities I73.9 Active 55022608 Problem Rheumatoid arthritis with rh eumatoid factor 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 M05.751 Active 05211 5006 Problem Needs smoking cessation education F17.200 Active 176515332 Problem Basal cell carcinoma of nose C44.311 A ctive 615503279 Problem Spondylitis, cervical M46.92 Active 631287724 Problem Inflammatory arthritis M19.90 Active 9084693 Problem Generalized anxiety disorder F41.1 A ctive 08033954 Problem Constipation K59.00 Active 8917375 8 Problem Chronic insomnia F51.04 Active 724 430934 Problem Uncomplicated opioid dependence F11.20 Active 55074006 Problem Mild episode of recurrent major depressive disorder F33.0 Active 708410322 Problem Arthritis M19.90 Active 3803855 Problem Drug induced constipation K59.03 Acti ve [id number] Problem Anxiety F41.9 Active 13172097 Problem Fibromyalgia M79.7 Active 4517464 05 Problem Angina at rest I20.8 Active 23423 8000 Problem 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 Active 2323683814791046 Problem Rotator cuff arthropathy of left shoulder M12.812 Active 27438260433622995 Problem Conductive hearing loss of l eft 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 H90.12 Active 968761116 Problem Chronic pain syndrome G89.4 Active 845135178 ALLERGIES No Information ENCOUNTERS Encounter Location Date Diagnosis [facility] [place] [facility] [address] [facility] [place] [address] Nov, [facility] [address] [facility] [id number] [address] [place] [address] Oct, 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 I25.110 ; Pain in left hip M25.552 and Basal cell carcinoma of nose C44.311 [facility] [address] [facility] [id number] [address] [place] [address] Oct, [facility] [address] [facility] [id number] [address] [place] [address] July, Pain in left hip M25.552 and Drug induced constipation K59.03 [facility] [address] [facility] [id number] [address] [place] [address] July, Fibromyalgia M79.7 and Basal cell carcinoma of nose C44.311 [facility] [address] [facility] [id number] [address] [place] [address] Jun, Pain in left hip M25.552 [facility] [address] [facility] [id number] [address] [place] [address] May, Pain in left hip M25.552 ; P ain in right hip M25.551 ; Adverse effect of other opioids, initial encounter T40.2X5A and Drug induced constipation K59.03 [facility] [address] [facility] [id number] [address] [place] [address] May, [facility] [address] [facility] [id number] [address] [place] [phone] May, [facility] [address] [facility] [id number] [address] [place] [address] Apr, [facility] [address] [facility] [id number] [address] [place] [address] Apr, Adverse effect of other opio ids, initial encounter T40.2X5A ; Drug induced constipation K59.03 and Uncomplicated opioid dependence F11.20 [facility] [address] [id number] [address] [place] [address] Apr, Uncomplicated opioid depende nce F11.20 [facility] [address] [id number] [address] [place] [address] Mar, Uncomplicated opioid depende nce F11.20 [facility] [address] [facility] [id number] [address] [place] [phone] Mar, Uncomplicated opioid depende nce F11.20 [facility] [address] [facility] [id number] [address] [place] [address] Mar, Chronic pain syndrome G89.4 ; Uncomplicated opioid dependence F11.20 ; Coronary artery disease involving chitina coronary artery of chitina heart with unstable angina pectoris I25.110 ; Hypertension, unspecified type I10 and Constipation K59.00 [facility] [address] [facility] [id number] [address] [place] [address] Mar, [facility] [address] [facility] [id number] [address] [place] [address] Mar, Rotator cuff arthropathy of left shoulder M12.812 [facility] [address] [facility] [id number] [address] [place] [address] Mar, Uncomplicated opioid depende nce F11.20 [facility] [address] [facility] [id number] [address] [place] [address] Mar, Uncomplicated opioid depende nce F11.20 [facility] [address] [facility] [id number] [address] [place] [phone] Mar, [facility] [address] [facility] [id number] [address] [place] [phone] Mar, [facility] [address] [facility] [id number] [address] [place] [address] Mar, Chronic pain syndrome G89.4 and Uncomplicated opioid dependence F11.20 [facility] [address] [facility] [id number] [address] [place] [phone] Mar, Generalized anxiety disorder F41.1 and Mild episode of recurrent major depressive disorder F33.0 [facility] [address] [facility] [id number] [address] [place] [address] Mar, Bloody stools K92.1 [facility] [address] [facility] [id number] [address] [place] [phone] Feb, [facility] [address] [facility] [id number] [address] [place] [address] Feb, [facility] [address] [place] [id number] [address] [place] [phone] Feb, [facility] [address] [facility] [id number] [address] [place] [phone] Feb, [facility] [address] [place] [id number] [address] [place] [phone] Feb, [facility] [address] [facility] [id number] [address] [place] [phone] Feb, Right otitis media with effu gauri H65.91 and Nevoid hyperpigmentation L81.9 [facility] [address] [place] [id number] [address] [place] [address] Jan, [facility] [address] [facility] [id number] [address] [place] [phone] Jan, [facility] [address] [facility] [id number] [address] [place] [address] Jan, [facility] [address] [facility] [id number] [address] [place] [phone] Jan, [facility] [address] [place] [id number] [address] [place] [address] Jan, Fibromyalgia M79.7 [facility] [address] [place] [id number] [address] [place] [address] Jan, Rotator cuff arthropathy of left shoulder M12.812 [facility] [address] [id number] [address] [place] [address] Jan, Fibromyalgia M79.7 ; Spondyl itis, cervical M46.92 ; Inflammatory arthritis M19.90 and Seborrheic keratoses L82.1 [facility] [address] [id number] [address] [place] [phone] Jan, [facility] [address] [id number] [address] [place] [address] Jan, [facility] [address] [id number] [address] [place] [address] Jan, Generalized anxiety disorder F41.1 and Mild episode of recurrent major depressive disorder F33.0 [place] [address] [facility] [id number] [address] [place] [address] Dec, Chronic pain syndrome G89.4 [place] [address] [facility] [id number] [address] [place] [address] Dec, [place] [address] [facility] [id number] [address] [place] [address] Dec, Arthritis M19.90 ; Fibromyal angel M79.7 ; Anxiety F41.9 ; Dizziness R42 ; Conductive hearing loss of left 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 H90.12 and Encounter for immunization Z23 [facility] [address] [facility] [id number] [address] [place] [address] Dec, Rotator cuff arthropathy of left shoulder M12.812 [facility] [address] [facility] [id number] [address] [place] [address] Dec, Chronic pain syndrome G89.4 [facility] [address] [facility] [id number] [address] [place] [address] Dec, Rotator cuff arthropathy of left shoulder M12.812 [facility] [address] [facility] [id number] [address] [place] [address] Dec, Acute midline thoracic back pain M54.6 ; Chronic pain syndrome G89.4 and Dizziness R42 [facility] [address] [id number] [address] [place] [address] Dec, [facility] [address] [id number] [address] [place] [address] Dec, [facility] [address] [id number] [address] [place] [address] Nov, Rotator cuff arthropathy of left shoulder M12.812 [facility] [address] [id number] [address] [place] [address] Nov, Chronic insomnia F51.04 ; No n-healing skin lesion of nose L98.9 ; BPPV (benign paroxysmal positional vertigo), left H81.12 ; Constipation K59.00 and 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 [place] [address] [facility] [id number] [address] [place] [address] Nov, Arthritis M19.90 and Anxiety F41.9 [place] [address] [facility] [id number] [address] [place] [address] Nov, Generalized anxiety disorder F41.1 and Mild episode of recurrent major depressive disorder F33.0 [place] [address] [facility] [id number] [address] [place] [address] Nov, Spondylitis, cervical M46.92 [place] [address] [facility] [id number] [address] [place] [address] Oct, [place] [address] [id number] [address] [place] [address] Oct, Basal cell carcinoma of nose C44.311 [place] [address] [facility] [id number] [address] [place] [address] Oct, Spondylitis, cervical M46.92 and Anxiety F41.9 [place] [address] [facility] [id number] [address] [place] [address] Oct, Generalized anxiety disorder F41.1 and Mild episode of recurrent major depressive disorder F33.0 [facility] [address] [id number] [address] [place] [phone] Oct, Rotator cuff arthropathy of left shoulder M12.812 [facility] [address] [id number] [address] [place] [address] Oct, Spondylitis, cervical M46.92 [facility] [address] [id number] [address] [place] [address] Oct, [facility] [address] [id number] [address] [place] [address] Sep, Basal cell carcinoma of nose C44.311 [facility] [address] [id number] [address] [place] [address] Sep, Generalized anxiety disorder F41.1 and Mild episode of recurrent major depressive disorder F33.0 [facility] [address] [id number] [address] [place] [address] Sep, Spondylitis, cervical M46.92 and Anxiety F41.9 [facility] [address] [id number] [address] [place] [phone] Sep, [facility] [address] [id number] [address] [place] [address] Aug, Rotator cuff arthropathy of left shoulder M12.812 [facility] [address] [id number] [address] [place] [address] Aug, Lesion of nose J34.89 [facility] [address] [id number] [address] [place] [address] Aug, Spondylitis, cervical M46.92 ; Fibromyalgia M79.7 and 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 [facility] [address] [id number] [address] [place] [address] Aug, Fibromyalgia M79.7 [facility] [address] [id number] [address] [place] [phone] Aug, Fibromyalgia M79.7 [facility] [address] [id number] [address] [place] [phone] Aug, [facility] [address] [id number] [address] [place] [phone] July, [facility] [address] [id number] [address] [place] [phone] July, [facility] [address] [id number] [address] [place] [address] July, Arthritis M19.90 [place] [address] [facility] [id number] [address] [place] [address] July, Inflammatory arthritis M19.9 0 [place] [address] [facility] [id number] [address] [place] [address] Jun, Inflammatory arthritis M19.9 0 [place] [address] [facility] [id number] [address] [place] [address] Jun, Arthritis M19.90 [facility] [address] [facility] [id number] [address] [place] [address] May, Rheumatoid arthritis with rh eumatoid factor 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 M05.751 ; Rheumatoid arthritis of left hip without organ or system involvement with positive rheumatoid factor M05.752 ; Chest pain, unspecified type R07.9 and Needs smoking cessation education F17.200 [place] [address] [id number] [address] [place] [address] May, [facility] [address] [id number] [address] [place] [address] May, Arthritis M19.90 [facility] [address] [facility] [id number] [address] [place] [address] May, Chest pain, unspecified type R07.9 ; Dyspnea on exertion R06.09 ; Claudication of both lower extremities I73.9 ; Hypertension, unspecified type I10 and Tobacco use Z72.0 [facility] [address] [id number] [address] [place] [address] Apr, Arthritis M19.90 [facility] [address] [id number] [address] [place] [address] Apr, Arthritis M19.90 [facility] [address] [id number] [address] [place] [address] Apr, Sinusitis chronic, frontal J 32.1 ; Coronary artery disease involving chitina coronary artery of chitina heart with unstable angina pectoris I25.110 ; Arthritis M19.90 and Fibromyalgia M79.7 [facility] [address] [id number] [address] [place] [phone] 09 Apr, 2017 Sinusitis chronic, frontal J 32.1 ; Coronary artery disease involving chitina coronary artery of chitina heart with unstable angina pectoris I25.110 ; Arthritis M19.90 and Fibromyalgia M79.7 [facility] [address] [id number] [address] [place] [address] Mar, [facility] [address] [id number] [address] [place] [address] Mar, Arthritis M19.90 [facility] [address] [facility] [id number] [address] [place] [address] Mar, Angina at rest I20.8 [facility] [address] [id number] [address] [place] [address] Mar, Arthritis M19.90 [facility] [address] [id number] [address] [place] [address] Mar, [facility] [address] [facility] [id number] [address] [place] [address] Feb, [facility] [address] [facility] [id number] [address] [place] [phone] Feb, [facility] [address] [facility] [id number] [address] [place] [address] Feb, Arthritis M19.90 [facility] [address] [facility] [id number] [address] [place] [address] Feb, Left foot pain M79.672 and A cute left ankle pain M25.572 [facility] [address] [id number] [address] [place] [address] Jan, [facility] [address] [facility] [id number] [address] [place] [address] Jan, Arthritis M19.90 ; Spondylit is, cervical M46.92 ; Fibromyalgia M79.7 and Family history of hypothyroidism Z83.49 [place] [address] [facility] [id number] [address] [place] [address] Sep, Dental caries K02.9 [place] [address] [facility] [id number] [address] [place] [address] Aug, Dental examination Z01.20 [place] [address] [facility] [id number] [address] [place] [address] Apr, Dental examination Z01.20 an d Dental caries K02.9 [place] [address] [facility] [id number] [address] [place] [address] Apr, Dental caries K02.9 [place] [address] [facility] [id number] [address] [place] [phone] 08 Apr, 2015 Dental examination Z01.20 IMMUNIZATIONS No Known Immunizations SOCIAL HISTORY Never Assessed REASON FOR VISIT Needs referral PLAN OF CARE VITAL SIGNS MEDICATIONS Unknown Medications RESULTS No Results PROCEDURES No Known procedures INSTRUCTIONS MEDICATIONS ADMINISTERED No Known Medications MEDICAL (GENERAL) HISTORY Type Description Date Medical History Pneumonia Medical History Back and neck pain Medical History fibromyalgia Medical History Severe OA Medical History COPD Medical History emphysema Medical History "nocturnal hypoxemia" Medical History 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
--- OUTSIDE RECORDS SUMMARY | 2019-10-19 12:30 | XMS REPORT | Continuity of Care Document ---
Author Organization Unknown Address Unknown Phone Unavailable Allergies Active Description Code Type Severity Reaction Onset Reported/Identified Relationship to Patient Clinical Status Yes No Known Drug Allergies [id number] Drug Allergy Unknown N/A 03/18/2017 Yes mirtazapine [id number] Drug Aller gy Unknown horrible nightm 07/24/2018 Medications There is no data. Problems Date Dx Coded Attending Type Code Diagnosis Diagnosed By 03/18/2017 CELIA COSBY DEFECT CUTTER Ot F17.210 NICOTINE DEPENDENCE, CIGARETTES, UNCOMPL 03/18/2017 HARJEET, CELIA DEFECT CUTTER Ot F41.9 ANXIETY DISORDER, UNSPECIFIED 03/18/2017 HARJEET, CELIA DEFECT CUTTER Ot I20.9 ANGINA PECTORIS, UNSPECIFIED 03/18/2017 HARJEET, CELIA DEFECT CUTTER Ot R07.89 OTHER CHEST PAIN 03/24/2017 HARJEET, CELIA DEFECT CUTTER Ot F17.210 NICOTINE DEPENDENCE, CIGARETTES, UNCOMPL 03/24/2017 HARJEET, CELIA DEFECT CUTTER Ot F41.9 ANXIETY DISORDER, UNSPECIFIED 03/24/2017 HARJEET, CELIA DEFECT CUTTER Ot I20.9 ANGINA PECTORIS, UNSPECIFIED 03/24/2017 HARJEET, CELIA DEFECT CUTTER Ot R07.89 OTHER CHEST PAIN 06/10/2017 MATEO CARY DEFECT CUTTER Ot D72.829 ELEVATED WHITE BLOOD CELL COUNT, UNSPECI 06/10/2017 MATEO CARY L DEFECT CUTTER Ot F17.210 NICOTINE DEPENDENCE, CIGARETTES, UNCOMPL 06/10/2017 SAULMATERRYMATEO L DEFECT CUTTER Ot I25.10 ATHSCL HEART DISEASE OF [place] CORONARY 06/10/2017 MATEO CARY DEFECT CUTTER Ot Z11.2 ENCOUNTER FOR SCREENING FOR OTHER BACTER 06/11/2017 MATEO CARY L DEFECT CUTTER Ot D72.829 ELEVATED WHITE BLOOD CELL COUNT, UNSPECI 06/11/2017 TERRY CARYHER L DEFECT CUTTER Ot F17.210 NICOTINE DEPENDENCE, CIGARETTES, UNCOMPL 06/11/2017 MATEO CARY DEFECT CUTTER Ot I25.10 ATHSCL HEART DISEASE OF [place] CORONARY 06/11/2017 MATEO CARY L DEFECT CUTTER Ot Z11.2 ENCOUNTER FOR SCREENING FOR OTHER BACTER 06/12/2017 MATEO CARY L DEFECT CUTTER Ot D72.829 ELEVATED WHITE BLOOD CELL COUNT, UNSPECI 06/12/2017 LUIS DANIEL MATEO L DEFECT CUTTER Ot F17.210 NICOTINE DEPENDENCE, CIGARETTES, UNCOMPL 06/12/2017 TERRY CARYHER L DEFECT CUTTER Ot I25.10 ATHSCL HEART DISEASE OF [place] CORONARY 06/12/2017 MATEO CARY L DEFECT CUTTER Ot Z11.2 ENCOUNTER FOR SCREENING FOR OTHER BACTER 06/20/2017 BAICHRIS, MATEO L DEFECT CUTTER Ot I 10 ESSENTIAL (PRIMARY) HYPERTENSION 06/20/2017 BAIMA, MATEO L DEFECT CUTTER Ot I73.9 PERIPHERAL VASCULAR DISEASE, UNSPECIFIED 06/20/2017 BAIMA, MATEO L DEFECT CUTTER Ot R06.00 DYSPNEA, UNSPECIFIED 06/20/2017 BAIMA, MATEO L DEFECT CUTTER Ot R07.9 CHEST PAIN, UNSPECIFIED 06/23/2017 BAIMA, MATEO L DEFECT CUTTER Ot 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 06/23/2017 BAIMA, MATEO L DEFECT CUTTER Ot R07.9 CHEST PAIN, UNSPECIFIED 06/23/2017 BAIMA, MATEO L DEFECT CUTTER Ot R10.31 RIGHT LOWER QUADRANT PAIN 06/25/2017 BAIMA, MTAEO L DEFECT CUTTER Ot I 10 ESSENTIAL (PRIMARY) HYPERTENSION 06/25/2017 BAIMA, MATEO L DEFECT CUTTER Ot I73.9 PERIPHERAL VASCULAR DISEASE, UNSPECIFIED 06/25/2017 BAIMA, MATEO L DEFECT CUTTER Ot R06.00 DYSPNEA, UNSPECIFIED 06/25/2017 BAIMA, MATEO L DEFECT CUTTER Ot R07.9 CHEST PAIN, UNSPECIFIED 06/25/2017 BAIMA, MATEO L DEFECT CUTTER Ot 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 06/25/2017 BAIMA, MATEO L DEFECT CUTTER Ot R07.9 CHEST PAIN, UNSPECIFIED 06/25/2017 BAIMA, MATEO L DEFECT CUTTER Ot R10.31 RIGHT LOWER QUADRANT PAIN 07/02/2017 BAIMA, MATEO L DEFECT CUTTER Ot 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 07/02/2017 BAIMA, MATEO L DEFECT CUTTER Ot R07.9 CHEST PAIN, UNSPECIFIED 07/02/2017 MATEO CARY DEFECT CUTTER Ot R10.31 RIGHT LOWER QUADRANT PAIN 07/02/2017 MATEO CARY DEFECT CUTTER Ot I 10 ESSENTIAL (PRIMARY) HYPERTENSION 07/02/2017 MATEO CARY DEFECT CUTTER Ot I73.9 PERIPHERAL VASCULAR DISEASE, UNSPECIFIED 07/02/2017 MATEO CARY DEFECT CUTTER Ot R06.00 DYSPNEA, UNSPECIFIED 07/02/2017 MATEO CARY DEFECT CUTTER Ot R07.9 CHEST PAIN, UNSPECIFIED 07/03/2017 NENA SHANNON E LEVELER HELPER Ot R06.00 DYSPNEA, UNSPECIFIED 07/03/2017 NENA, SHANNON E LEVELER HELPER Ot Z72.0 TOBACCO USE 07/13/2017 ENNA, SHANNON E LEVELER HELPER Ot G25.81 RESTLESS LEGS SYNDROME 07/13/2017 NENA, SHANNON E LEVELER HELPER Ot G47.00 INSOMNIA, UNSPECIFIED 07/13/2017 NENA, SHANNON E LEVELER HELPER Ot G47.10 HYPERSOMNIA, UNSPECIFIED 07/13/2017 NENA, SHANNON E LEVELER HELPER Ot G47.50 PARASOMNIA, UNSPECIFIED 07/14/2017 NENA, SHANNON E LEVELER HELPER Ot G25.81 RESTLESS LEGS SYNDROME 07/14/2017 NENA, SHANNON E LEVELER HELPER Ot G47.00 INSOMNIA, UNSPECIFIED 07/14/2017 NENA, SHANNON E LEVELER HELPER Ot G47.10 HYPERSOMNIA, UNSPECIFIED 07/14/2017 NENA, SHANNON E LEVELER HELPER Ot G47.50 PARASOMNIA, UNSPECIFIED 07/14/2017 NENA, SHANNON E LEVELER HELPER Ot G25.81 RESTLESS LEGS SYNDROME 07/14/2017 NENA, SHANNON E LEVELER HELPER Ot G47.00 INSOMNIA, UNSPECIFIED 07/14/2017 NENA, SHANNON E LEVELER HELPER Ot G47.10 HYPERSOMNIA, UNSPECIFIED 07/14/2017 NENA, SHANNON E LEVELER HELPER Ot G47.50 PARASOMNIA, UNSPECIFIED 08/07/2017 NENA, SHANNON E LEVELER HELPER Ot J43.9 EMPHYSEMA, UNSPECIFIED 08/07/2017 NENA, SHANNON E LEVELER HELPER Ot Z72.0 TOBACCO USE 08/12/2017 NENA, SHANNON E LEVELER HELPER Ot J43.9 EMPHYSEMA, UNSPECIFIED 08/12/2017 SHANNON BARRETT LEVELER HELPER Ot Z72.0 TOBACCO USE 09/08/2017 SHANNON BARRETT E LEVELER HELPER Ot J43.9 EMPHYSEMA, UNSPECIFIED 09/08/2017 JOSE BARRETTINE E LEVELER HELPER Ot Z72.0 TOBACCO USE 09/08/2017 SHANNON BARRETT LEVELER HELPER Ot R06.00 DYSPNEA, UNSPECIFIED 09/08/2017 SHANNON BARRETT LEVELER HELPER Ot Z72.0 TOBACCO USE 09/09/2017 SHANNON BARRETT LEVELER HELPER Ot R06.00 DYSPNEA, UNSPECIFIED 09/09/2017 SHANNON BARRETT LEVELER HELPER Ot Z72.0 TOBACCO USE 09/22/2017 BAIMAMATEO L DEFECT CUTTER Ot 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 09/22/2017 MATEO CARY L DEFECT CUTTER Ot R07.9 CHEST PAIN, UNSPECIFIED 09/22/2017 BAIMA MATEO L DEFECT CUTTER Ot R10.31 RIGHT LOWER QUADRANT PAIN 09/22/2017 MATEO CARY L DEFECT CUTTER Ot I 10 ESSENTIAL (PRIMARY) HYPERTENSION 09/22/2017 BAIMA MATEO L DEFECT CUTTER Ot I73.9 PERIPHERAL VASCULAR DISEASE, UNSPECIFIED 09/22/2017 BAIMA MATEO L DEFECT CUTTER Ot R06.00 DYSPNEA, UNSPECIFIED 09/22/2017 BAIMA MATEO L DEFECT CUTTER Ot R07.9 CHEST PAIN, UNSPECIFIED 09/22/2017 SHANNON BARRETT LEVELER HELPER Ot R06.00 DYSPNEA, UNSPECIFIED 09/22/2017 SHANNON BARRETT LEVELER HELPER Ot Z72.0 TOBACCO USE 09/22/2017 SHANNON BARRETT LEVELER HELPER Ot J43.9 EMPHYSEMA, UNSPECIFIED 09/22/2017 SHANNON BARRETT LEVELER HELPER Ot Z72.0 TOBACCO USE 09/22/2017 JOSE BARRETTINE E LEVELER HELPER Ot 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 09/22/2017 SHANNON BARRETT LEVELER HELPER Ot R06.09 OTHER FORMS OF DYSPNEA 09/22/2017 JOSE BARRETTINE E LEVELER HELPER Ot R53.83 OTHER FATIGUE 09/22/2017 JOSE BARRETTINE E LEVELER HELPER Ot Z72.0 TOBACCO USE 11/23/2017 JOSE BARRETTINE E LEVELER HELPER Ot 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 11/23/2017 NENAJOSESHANNON Joshua LEVELER HELPER Ot R06.09 OTHER FORMS OF DYSPNEA 11/23/2017 NENA SHANNON E LEVELER HELPER Ot R53.83 OTHER FATIGUE 11/23/2017 NENAJOSESHANNON E LEVELER HELPER Ot Z72.0 TOBACCO USE 11/24/2017 NENA SHANNON E LEVELER HELPER Ot 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 11/24/2017 NENA SHANNON E LEVELER HELPER Ot R06.09 OTHER FORMS OF DYSPNEA 11/24/2017 NENA SHANNON E LEVELER HELPER Ot R53.83 OTHER FATIGUE 11/24/2017 NENA SHANNON E LEVELER HELPER Ot Z72.0 TOBACCO USE 11/24/2017 NENA SHANNON E LEVELER HELPER Ot 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 11/24/2017 NENA SHANNON E LEVELER HELPER Ot R06.09 OTHER FORMS OF DYSPNEA 11/24/2017 NENA SHANNON E LEVELER HELPER Ot R53.83 OTHER FATIGUE 11/24/2017 NENA SHANNON E LEVELER HELPER Ot Z72.0 TOBACCO USE 11/29/2017 NENA SHANNON E LEVELER HELPER Ot 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 5 HYPERLIPIDEMIA, UNSPECIFIED 07/28/2018 ANTWON NAVARRO DO Ot F17.210 NICOTINE DEPENDENCE, CIGARETTES, UNCOMPL 07/28/2018 ANTWON NAVARRO DO Ot F32. 9 MAJOR DEPRESSIVE DISORDER, SINGLE EPISOD 07/28/2018 ANTWON NAVARRO DO Ot F41. 9 ANXIETY DISORDER, UNSPECIFIED 07/28/2018 ANTWON NAVARRO DO Ot I10 ESSENTIAL (PRIMARY) HYPERTENSION 07/28/2018 ANTWON NAVARRO DO Ot J44. 9 CHRONIC OBSTRUCTIVE PULMONARY DISEASE, U 07/28/2018 NAVARRO ANTWON NOEL Ot K59. 00 CONSTIPATION, UNSPECIFIED 07/28/2018 ANTWON NAVARRO DO Ot K92. 1 MELENA 07/28/2018 ANTWON NAVARRO DO Ot M79. 7 FIBROMYALGIA 07/28/2018 ANTWON NAVARRO DO Ot Z79. 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 5 HYPERLIPIDEMIA, UNSPECIFIED 08/03/2018 ANTWON NAVARRO DO Ot F17.210 NICOTINE DEPENDENCE, CIGARETTES, UNCOMPL 08/03/2018 ANTWON NAVARRO DO Ot F32. 9 MAJOR DEPRESSIVE DISORDER, SINGLE EPISOD 08/03/2018 ANTWON NAVARRO DO Ot F41. 9 ANXIETY DISORDER, UNSPECIFIED 08/03/2018 ANTWON NAVARRO DO Ot I10 ESSENTIAL (PRIMARY) HYPERTENSION 08/03/2018 ANTWON NAVARRO DO Ot J44. 9 CHRONIC OBSTRUCTIVE PULMONARY DISEASE, U 08/03/2018 NAVARRO ANTWON NOEL Ot K59. 00 CONSTIPATION, UNSPECIFIED 08/03/2018 ANTWON NAVARRO DO Ot K92. 1 MELENA 08/03/2018 ANTWON NAVARRO DO Ot M79. 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 08/31/2018 MATEO CARY DEFECT CUTTER Ot R07.9 CHEST PAIN, UNSPECIFIED 08/31/2018 MATEO CARY DEFECT CUTTER Ot R10.31 RIGHT LOWER QUADRANT PAIN 08/31/2018 MATEO CARY DEFECT CUTTER Ot I 10 ESSENTIAL (PRIMARY) HYPERTENSION 08/31/2018 MATEO CARY L DEFECT CUTTER Ot I73.9 PERIPHERAL VASCULAR DISEASE, UNSPECIFIED 08/31/2018 BAITERRY PEREZHER L DEFECT CUTTER Ot R06.00 DYSPNEA, UNSPECIFIED 08/31/2018 BAITERRY PEREZHER L DEFECT CUTTER Ot R07.9 CHEST PAIN, UNSPECIFIED 08/31/2018 NENA, SHANNON E LEVELER HELPER Ot R06.00 DYSPNEA, UNSPECIFIED 08/31/2018 NENA SHANNON E LEVELER HELPER Ot Z72.0 TOBACCO USE 08/31/2018 NENA SHANNON E LEVELER HELPER Ot J43.9 EMPHYSEMA, UNSPECIFIED 08/31/2018 NENA, SHANNON E LEVELER HELPER Ot Z72.0 TOBACCO USE 08/31/2018 NENA SHANNON E LEVELER HELPER Ot 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 08/31/2018 NENA SHANNON E LEVELER HELPER Ot R06.09 OTHER FORMS OF DYSPNEA 08/31/2018 JOSE BARRETTINE E LEVELER HELPER Ot R53.83 OTHER FATIGUE 08/31/2018 JOSE BARRETTINE Joshua LEVELER HELPER Ot Z72.0 TOBACCO USE 08/31/2018 MATEO CARY L DEFECT CUTTER Ot 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 08/31/2018 MATEO CARY L DEFECT CUTTER Ot R07.9 CHEST PAIN, UNSPECIFIED 08/31/2018 MATEO CARY L DEFECT CUTTER Ot R10.31 RIGHT LOWER QUADRANT PAIN 08/31/2018 MATEO CARY L DEFECT CUTTER Ot I 10 ESSENTIAL (PRIMARY) HYPERTENSION 08/31/2018 MATEO CARY L DEFECT CUTTER Ot I73.9 PERIPHERAL VASCULAR DISEASE, UNSPECIFIED 08/31/2018 BAIMATEO PEREZ L DEFECT CUTTER Ot R06.00 DYSPNEA, UNSPECIFIED 08/31/2018 BAITERRY PEREZHER L DEFECT CUTTER Ot R07.9 CHEST PAIN, UNSPECIFIED 08/31/2018 NENA SHANNON E LEVELER HELPER Ot R06.00 DYSPNEA, UNSPECIFIED 08/31/2018 NENA SHANNON E LEVELER HELPER Ot Z72.0 TOBACCO USE 08/31/2018 JOSE BARRETTINE E LEVELER HELPER Ot J43.9 EMPHYSEMA, UNSPECIFIED 08/31/2018 NENA SHANNON E LEVELER HELPER Ot Z72.0 TOBACCO USE 08/31/2018 NENA, SHANNON E LEVELER HELPER Ot 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 08/31/2018 SHANNON BARRETT LEVELER HELPER Ot R06.09 OTHER FORMS OF DYSPNEA 08/31/2018 SHANNON BARRETT LEVELER HELPER Ot R53.83 OTHER FATIGUE 08/31/2018 SHANNON BARRETT LEVELER HELPER Ot Z72.0 TOBACCO USE 09/02/2018 JEY BOYDC, ALI FACP CCDS Ot F17.210 NICOTINE DEPENDENCE, CIGARETTES, UNCOMPL 09/02/2018 JEY BOYDC, ALI FACP CCDS Ot F32.9 MAJOR DEPRESSIVE DISORDER, SINGLE EPISOD 09/02/2018 JEY BOYDC, ALI FACP CCDS Ot F41.9 ANXIETY DISORDER, UNSPECIFIED 09/02/2018 JEY BORREGO FACC, ALI FACP CCDS Ot G89.29 OTHER CHRONIC PAIN 09/02/2018 JEY BORREGO FACC, ALI FACP CCDS Ot I21.19 STEMI INVOLVING OTH CORONARY ARTERY OF I 09/02/2018 JEY BORREGO FACC, ALI FACP CCDS Ot I25.10 ATHSCL HEART DISEASE OF [place] CORONARY 09/02/2018 JEY BOYDC, ALI FACP CCDS Ot I27.20 PULMONARY HYPERTENSION, UNSPECIFIED 09/02/2018 JEY BORREGO FACC, ALI FACP CCDS Ot J43.9 EMPHYSEMA, UNSPECIFIED 09/02/2018 JEY BORREGO FACC, ALI FACP CCDS Ot L30.9 DERMATITIS, UNSPECIFIED 09/02/2018 JEY BOYDC, ALI FACP CCDS Ot M19.91 PRIMARY OSTEOARTHRITIS, UNSPECIFIED SITE 09/02/2018 JEY BORREGO FACC, ALI FACP CCDS Ot M79.7 FIBROMYALGIA 09/02/2018 JEY BORREGO FACC, ALI FACP CCDS Ot 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 09/02/2018 JEY BORREGO FACC, ALI FACP CCDS Ot Z79.899 OTHER [facility] (CURRENT) DRUG THERAPY 09/02/2018 JEY BORREGO FACC, ALI FACP CCDS Ot Z85.41 PERSONAL HISTORY OF MALIGNANT NEOPLASM O 09/03/2018 JEY BROREGO FACC, ALI FACP CCDS Ot F17.210 NICOTINE DEPENDENCE, CIGARETTES, UNCOMPL 09/03/2018 JEY BORREGO FACC, ALI FACP CCDS Ot F32.9 MAJOR DEPRESSIVE DISORDER, SINGLE EPISOD 09/03/2018 JEY BORREGO FACC, ALI FACP CCDS Ot F41.9 ANXIETY DISORDER, UNSPECIFIED 09/03/2018 JEY BORREGO FACC, ALI FACP CCDS Ot G89.29 OTHER CHRONIC PAIN 09/03/2018 JEY BORREGO FACC, ALI FACP CCDS Ot I21.19 STEMI INVOLVING OTH CORONARY ARTERY OF I 09/03/2018 JEY BORREGO FACC, ALI FACP CCDS Ot I25.10 ATHSCL HEART DISEASE OF [place] CORONARY 09/03/2018 JEY BORREGO FACC, ALI FACP CCDS Ot I27.20 PULMONARY HYPERTENSION, UNSPECIFIED 09/03/2018 JEY BORREGO FACC, ALI FACP CCDS Ot J43.9 EMPHYSEMA, UNSPECIFIED 09/03/2018 JEY BORREGO FACC, ALI FACP CCDS Ot L30.9 DERMATITIS, UNSPECIFIED 09/03/2018 JEY BORREGO FACC, ALI FACP CCDS Ot M19.91 PRIMARY OSTEOARTHRITIS, UNSPECIFIED SITE 09/03/2018 JEY BORREGO FACC, ALI FACP CCDS Ot M79.7 FIBROMYALGIA 09/03/2018 JEY BORREGO FACC, ALI FACP CCDS Ot Z79.82 [facility] (CURRENT) USE OF ASPIRIN 09/03/2018 JEY BORREGO FACC, ALI FACP CCDS Ot Z79.899 OTHER [facility] (CURRENT) DRUG THERAPY 09/03/2018 JEY BORREGO FACC, ALI FACP CCDS Ot Z85.41 PERSONAL HISTORY OF MALIGNANT NEOPLASM O 09/14/2018 JEY BORREGO FACC, ALI FACP CCDS Ot F17.210 NICOTINE DEPENDENCE, CIGARETTES, UNCOMPL 09/14/2018 JEY BORREGO FACC, ALI FACP CCDS Ot F32.9 MAJOR DEPRESSIVE DISORDER, SINGLE EPISOD 09/14/2018 JEY BORREGO FACC, ALI FACP CCDS Ot F41.9 ANXIETY DISORDER, UNSPECIFIED 09/14/2018 JEY BORREGO FACC, ALI FACP CCDS Ot G89.29 OTHER CHRONIC PAIN 09/14/2018 JEY BORREGO FACC, ALI FACP CCDS Ot I21.19 STEMI INVOLVING OTH CORONARY ARTERY OF I 09/14/2018 JEY BORREGO FACC, ALI FACP CCDS Ot I25.10 ATHSCL HEART DISEASE OF [place] CORONARY 09/14/2018 JEY MD FACC, ALI FACP CCDS Ot I27.20 PULMONARY HYPERTENSION, UNSPECIFIED 09/14/2018 JEY BORREGO FACC, ALI FACP CCDS Ot J43.9 EMPHYSEMA, UNSPECIFIED 09/14/2018 JEY BORREGO FACC, ALI FACP CCDS Ot L30.9 DERMATITIS, UNSPECIFIED 09/14/2018 JEY BORREGO FACC, ALI FACP CCDS Ot M19.91 PRIMARY OSTEOARTHRITIS, UNSPECIFIED SITE 09/14/2018 JEY BORREGO FACC, ALI FACP CCDS Ot M79.7 FIBROMYALGIA 09/14/2018 JEY BORREGO FACC, ALI FACP CCDS Ot Z79.82 [facility] (CURRENT) USE OF ASPIRIN 09/14/2018 JEY BORREGO FACC, ALI FACP CCDS Ot 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.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 09/14/2018 JEY BORREGO FACC, ALI FACP CCDS Ot Z85.41 PERSONAL HISTORY OF MALIGNANT NEOPLASM O 09/14/2018 JEY BORREGO FACC, ALI FACP CCDS Ot F17.210 NICOTINE DEPENDENCE, CIGARETTES, UNCOMPL 09/14/2018 JEY BORREGO FACC, ALI FACP CCDS Ot F32.9 MAJOR DEPRESSIVE DISORDER, SINGLE EPISOD 09/14/2018 JEY BOYD, ALI FACP CCDS Ot F41.9 ANXIETY DISORDER, UNSPECIFIED 09/14/2018 JEY BORREGO FACC, ALI FACP CCDS Ot G89.29 OTHER CHRONIC PAIN 09/14/2018 JEY BORREGO FACC, ALI FACP CCDS Ot I21.19 STEMI INVOLVING OTH CORONARY ARTERY OF I 09/14/2018 JEY BORREGO FACC, ALI FACP CCDS Ot I25.10 ATHSCL HEART DISEASE OF [place] CORONARY 09/14/2018 JEY BOYD, ALI FACP CCDS Ot I27.20 PULMONARY HYPERTENSION, UNSPECIFIED 09/14/2018 JEY BORREGO FACC, ALI FACP CCDS Ot J43.9 EMPHYSEMA, UNSPECIFIED 09/14/2018 JEY BORREGO FACC, ALI FACP CCDS Ot L30.9 DERMATITIS, UNSPECIFIED 09/14/2018 JEY BORREGO FACC, ALI FACP CCDS Ot M19.91 PRIMARY OSTEOARTHRITIS, UNSPECIFIED SITE 09/14/2018 JEY BORREGO FACC, ALI FACP CCDS Ot M79.7 FIBROMYALGIA 09/14/2018 JEY BORREGO FACC, ALI FACP CCDS Ot Z79.82 [facility] (CURRENT) USE OF ASPIRIN 09/14/2018 JEY BORREGO [facility], SANDRINE MIRANDA CCDS Ot Z79.899 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 09/14/2018 JEY BORREGO [facility], [facility] CCDS Ot Z85.41 PERSONAL HISTORY OF MALIGNANT NEOPLASM O 09/25/2018 BAICHRIS MATEO L DEFECT CUTTER Ot 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 09/25/2018 BAIMA MATEO L DEFECT CUTTER Ot R07.9 CHEST PAIN, UNSPECIFIED 09/25/2018 BAIMA, MATEO L DEFECT CUTTER Ot R10.31 RIGHT LOWER QUADRANT PAIN 09/25/2018 BAIMA, MATEO L DEFECT CUTTER Ot I 10 ESSENTIAL (PRIMARY) HYPERTENSION 09/25/2018 BAIMA, MATEO L DEFECT CUTTER Ot I73.9 PERIPHERAL VASCULAR DISEASE, UNSPECIFIED 09/25/2018 BAIMA MATEO L DEFECT CUTTER Ot R06.00 DYSPNEA, UNSPECIFIED 09/25/2018 BAIMA MATEO L DEFECT CUTTER Ot R07.9 CHEST PAIN, UNSPECIFIED 09/25/2018 NENA SHANNON E LEVELER HELPER Ot R06.00 DYSPNEA, UNSPECIFIED 09/25/2018 NENA, SHANNON E LEVELER HELPER Ot Z72.0 TOBACCO USE 09/25/2018 JOSE BARRETTINE E LEVELER HELPER Ot J43.9 EMPHYSEMA, UNSPECIFIED 09/25/2018 NENA SHANNON E LEVELER HELPER Ot Z72.0 TOBACCO USE 09/25/2018 JOSE BARRETTINE E LEVELER HELPER Ot 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 09/25/2018 JOSE BARRETTINE E LEVELER HELPER Ot R06.09 OTHER FORMS OF DYSPNEA 09/25/2018 JOSE BARRETTINE E LEVELER HELPER Ot R53.83 OTHER FATIGUE 09/25/2018 JOSE BARRETTINE E LEVELER HELPER Ot Z72.0 TOBACCO USE 09/28/2018 BAIMA MATEO L DEFECT CUTTER Ot 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 09/28/2018 BAIMA, MATEO L DEFECT CUTTER Ot R07.9 CHEST PAIN, UNSPECIFIED 09/28/2018 BAIMA, MATEO L DEFECT CUTTER Ot R10.31 RIGHT LOWER QUADRANT PAIN 09/28/2018 BAIMA, MATEO L DEFECT CUTTER Ot I 10 ESSENTIAL (PRIMARY) HYPERTENSION 09/28/2018 BAIMATEO PEREZ L DEFECT CUTTER Ot I73.9 PERIPHERAL VASCULAR DISEASE, UNSPECIFIED 09/28/2018 BAIMATEO PEREZ L DEFECT CUTTER Ot R06.00 DYSPNEA, UNSPECIFIED 09/28/2018 BAIMAMATEO L DEFECT CUTTER Ot R07.9 CHEST PAIN, UNSPECIFIED 09/28/2018 NENA, SHANNON E LEVELER HELPER Ot R06.00 DYSPNEA, UNSPECIFIED 09/28/2018 NENA, SHANNON E LEVELER HELPER Ot Z72.0 TOBACCO USE 09/28/2018 NENA, SHANNON E LEVELER HELPER Ot J43.9 EMPHYSEMA, UNSPECIFIED 09/28/2018 NENA, SHANNON E LEVELER HELPER Ot Z72.0 TOBACCO USE 09/28/2018 NENA, SHANNON E LEVELER HELPER Ot 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 09/28/2018 NENA, SHANNON E LEVELER HELPER Ot R06.09 OTHER FORMS OF DYSPNEA 09/28/2018 NENA SHANNON E LEVELER HELPER Ot R53.83 OTHER FATIGUE 09/28/2018 NENA, SHANNON E LEVELER HELPER Ot Z72.0 TOBACCO USE 09/29/2018 MATEO CARY L DEFECT CUTTER Ot 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 09/29/2018 BAIMATEO PEREZ L DEFECT CUTTER Ot R07.9 CHEST PAIN, UNSPECIFIED 09/29/2018 BAIMATEO PEREZ L DEFECT CUTTER Ot R10.31 RIGHT LOWER QUADRANT PAIN 09/29/2018 BAIMATEO PEREZ L DEFECT CUTTER Ot I 10 ESSENTIAL (PRIMARY) HYPERTENSION 09/29/2018 BAIMATEO PEREZ L DEFECT CUTTER Ot I73.9 PERIPHERAL VASCULAR DISEASE, UNSPECIFIED 09/29/2018 BAIMATEO PEREZ L DEFECT CUTTER Ot R06.00 DYSPNEA, UNSPECIFIED 09/29/2018 BAITERRY PEREZHER L DEFECT CUTTER Ot R07.9 CHEST PAIN, UNSPECIFIED 09/29/2018 NENA, SHANNON E LEVELER HELPER Ot R06.00 DYSPNEA, UNSPECIFIED 09/29/2018 NENA, SHANNON E LEVELER HELPER Ot Z72.0 TOBACCO USE 09/29/2018 NENA SHANNON E LEVELER HELPER Ot J43.9 EMPHYSEMA, UNSPECIFIED 09/29/2018 NENA, SHANNON E LEVELER HELPER Ot Z72.0 TOBACCO USE 09/29/2018 NENA SHANNON E LEVELER HELPER Ot 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 09/29/2018 SHANNON BARRETT LEVELER HELPER Ot R06.09 OTHER FORMS OF DYSPNEA 09/29/2018 SHANNON BARRETT LEVELER HELPER Ot R53.83 OTHER FATIGUE 09/29/2018 SHANNON BARRETT LEVELER HELPER Ot Z72.0 TOBACCO USE 11/18/2018 JEY BORREGO FACC, SANDRINE FACP CCDS Ot I25.2 OLD MYOCARDIAL INFARCTION 11/18/2018 JEY BORREGO FACC, SANDRINE FACP CCDS Ot Z09 ENCNTR FOR F/U EXAM AFT TRTMT FOR COND O 11/18/2018 MATEO CARY DEFECT CUTTER Ot 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 11/18/2018 MATEO CARY DEFECT CUTTER Ot R07.9 CHEST PAIN, UNSPECIFIED 11/18/2018 MATEO CARY DEFECT CUTTER Ot R10.31 RIGHT LOWER QUADRANT PAIN 11/18/2018 MATEO CARY DEFECT CUTTER Ot I 10 ESSENTIAL (PRIMARY) HYPERTENSION 11/18/2018 SAULMAMATEO DEFECT CUTTER Ot I73.9 PERIPHERAL VASCULAR DISEASE, UNSPECIFIED 11/18/2018 MATEO CARY DEFECT CUTTER Ot R06.00 DYSPNEA, UNSPECIFIED 11/18/2018 BAIMAMATEO L DEFECT CUTTER Ot R07.9 CHEST PAIN, UNSPECIFIED 11/18/2018 SHANNON BARRETT LEVELER HELPER Ot R06.00 DYSPNEA, UNSPECIFIED 11/18/2018 SHANNON BARRETT LEVELER HELPER Ot Z72.0 TOBACCO USE 11/18/2018 SHANNON BARRETT LEVELER HELPER Ot J43.9 EMPHYSEMA, UNSPECIFIED 11/18/2018 SHANNON BARRETT LEVELER HELPER Ot Z72.0 TOBACCO USE 11/18/2018 SHANNON BARRETT LEVELER HELPER Ot 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 11/18/2018 SHANNON BARRETT LEVELER HELPER Ot R06.09 OTHER FORMS OF DYSPNEA 11/18/2018 SHANNON BARRETT LEVELER HELPER Ot R53.83 OTHER FATIGUE 11/18/2018 SHANNON BARRETT LEVELER HELPER Ot Z72.0 TOBACCO USE 11/18/2018 JEY BORREGO FACC, SANDRINE FACP CCDS Ot I25.2 OLD MYOCARDIAL INFARCTION 11/18/2018 JEY BORREGO FACC, ALI FACP CCDS Ot Z09 ENCNTR FOR F/U EXAM AFT TRTMT FOR COND O 11/18/2018 SAULMATEO PEREZ DEFECT CUTTER Ot 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 11/18/2018 SAULMATEO PEREZ DEFECT CUTTER Ot R07.9 CHEST PAIN, UNSPECIFIED 11/18/2018 SAULMATEO PEREZ DEFECT CUTTER Ot R10.31 RIGHT LOWER QUADRANT PAIN 11/18/2018 SAULMATEO PEREZ Timbo DEFECT CUTTER Ot I 10 ESSENTIAL (PRIMARY) HYPERTENSION 11/18/2018 BAIMAMATEO DEFECT CUTTER Ot I73.9 PERIPHERAL VASCULAR DISEASE, UNSPECIFIED 11/18/2018 BAIMATEO PEREZ DEFECT CUTTER Ot R06.00 DYSPNEA, UNSPECIFIED 11/18/2018 BAIMATEO PEREZ DEFECT CUTTER Ot R07.9 CHEST PAIN, UNSPECIFIED 11/18/2018 NENAJOSE GRAVESINE E LEVELER HELPER Ot R06.00 DYSPNEA, UNSPECIFIED 11/18/2018 NENA SHANNON E LEVELER HELPER Ot Z72.0 TOBACCO USE 11/18/2018 JOSE BARRETTINE E LEVELER HELPER Ot J43.9 EMPHYSEMA, UNSPECIFIED 11/18/2018 NENA, SHANNON E LEVELER HELPER Ot Z72.0 TOBACCO USE 11/18/2018 NENA, SHANNON E LEVELER HELPER Ot 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 11/18/2018 SHANNON BARRETT LEVELER HELPER Ot R06.09 OTHER FORMS OF DYSPNEA 11/18/2018 SHANNON BARRETT E LEVELER HELPER Ot R53.83 OTHER FATIGUE 11/18/2018 JOSE BARRETTINE E LEVELER HELPER Ot Z72.0 TOBACCO USE 11/18/2018 JEY BORREGO FACC, SANDRINE FACP CCDS Ot I25.2 OLD MYOCARDIAL INFARCTION 11/18/2018 JEY BORREGO FACC, SANDRINE FACP CCDS Ot Z09 ENCNTR FOR F/U EXAM AFT TRTMT FOR COND O 12/27/2018 JEY BORREGO FACC, SANDRINE FACP CCDS Ot I25.2 OLD MYOCARDIAL INFARCTION 12/27/2018 JEY BORREGO FACC, SANDRINE FACP CCDS Ot Z09 ENCNTR FOR F/U EXAM AFT TRTMT FOR COND O 12/28/2018 JEY BORREGO FACC, SANDRINE FACP CCDS Ot I25.2 OLD MYOCARDIAL INFARCTION 12/28/2018 JEY BORREGO FACC, ALI FACP CCDS Ot Z09 ENCNTR FOR F/U EXAM AFT TRTMT FOR COND O 01/21/2019 JEY BORREGO FACC, ALI FACP CCDS Ot I25.2 OLD MYOCARDIAL INFARCTION 01/21/2019 JEY BORREGO FACC, ALI FACP CCDS Ot Z09 ENCNTR FOR F/U EXAM AFT TRTMT FOR COND O 03/28/2019 JEY BORREGO FACC, ALI FACP CCDS Ot I25.2 OLD MYOCARDIAL INFARCTION 03/28/2019 JEY BORREGO FACC, ALI FACP CCDS Ot Z09 ENCNTR FOR F/U EXAM AFT TRTMT FOR COND O 03/29/2019 JEY BORREGO FACC, ALI FACP CCDS Ot I25.2 OLD MYOCARDIAL INFARCTION 03/29/2019 JEY BORREGO FACC, ALI FACP CCDS Ot Z09 ENCNTR FOR F/U EXAM AFT TRTMT FOR COND O 10/19/2019 BAIMA, MATEO L DEFECT CUTTER Ot 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 10/19/2019 BAIMA, MATEO L DEFECT CUTTER Ot R07.9 CHEST PAIN, UNSPECIFIED 10/19/2019 BAIMA, MATEO L DEFECT CUTTER Ot R10.31 RIGHT LOWER QUADRANT PAIN 10/19/2019 BAIMA, MATEO L DEFECT CUTTER Ot I 10 ESSENTIAL (PRIMARY) HYPERTENSION 10/19/2019 BAIMA, MATEO L DEFECT CUTTER Ot I73.9 PERIPHERAL VASCULAR DISEASE, UNSPECIFIED 10/19/2019 BAIMA, MATEO L DEFECT CUTTER Ot R06.00 DYSPNEA, UNSPECIFIED 10/19/2019 BAIMA, MATEO L DEFECT CUTTER Ot R07.9 CHEST PAIN, UNSPECIFIED 10/19/2019 NENA SHANNON E LEVELER HELPER Ot R06.00 DYSPNEA, UNSPECIFIED 10/19/2019 NENA SHANNON E LEVELER HELPER Ot Z72.0 TOBACCO USE 10/19/2019 NENA SHANNON E LEVELER HELPER Ot J43.9 EMPHYSEMA, UNSPECIFIED 10/19/2019 NENA, SHANNON E LEVELER HELPER Ot Z72.0 TOBACCO USE 10/19/2019 NENA, SHANNON E LEVELER HELPER Ot 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 10/19/2019 JOSE BARRETTINE E LEVELER HELPER Ot R06.09 OTHER FORMS OF DYSPNEA 10/19/2019 SHANNON BARRETT APRN Ot R53.83 OTHER FATIGUE 10/19/2019 SHANNON BARRETT APRN Ot Z72.0 TOBACCO USE 10/19/2019 Ot I25.2 OLD MYOCARDIAL INFARCTION 10/19/2019 Ot Z09 ENCNTR FOR F/U EXAM AFT TRTMT FOR COND O Procedures Code Description Performed By Per formed On [id number] DI LATION OF 1 COR ART WITH 2 DRUG-ELUT, 08/31/2018 [id number] ME ASURE OF CARDIAC SAMPL PRESSURE, L H 08/31/2018 [id number] FL UOROSCOPY OF MULT COR ART USING L OSM 08/31/2018 Results Test Result Range RAFAELA - 01/22/17 11:05 RAFAELA SCREEN, IFA NEGATIVE NEGATIVE TSH - 01/22/17 11:05 TSH 2.81 mIU/L 0.40-4.50 Complete blood count (CBC) with automate d white blood cell (WBC) differential - 03/18/17 13:19 Blood leukocytes automated count (number/volume) 10.4 10*3/uL 4.3-11.0 Blood erythrocytes automated count (number/volume) 4.28 10*6/uL 4.35-5.85 Venous blood hemoglobin measurement (mass/volume) 13.7 g/dL 11.5-16.0 Blood hematocrit (volume fraction) 41 % 35-52 Automated erythrocyte mean corpuscular volume 95 [ foz_us] 80-99 Automated erythrocyte mean corpuscular h emoglobin (mass per erythrocyte) 32 pg 25-34 Automated erythrocyte mean corpuscular h emoglobin concentration measurement (mass/volume) 34 g/dL 32-36 Automated erythrocyte distribution width ratio 12. 5 % 10.0- 14.5 Automated blood platelet count [...] 10*3 1.0-4.0 Blood monocytes automated count (number/volume) 0. 9 10*3 0.0-1.0 Automated eosinophil count 0.2 10*3/uL 0 .0-0.3 Automated blood basophil count (count/volume) 0.0 10*3/uL 0.0-0.1 PT panel in platelet poor plasma by coag ulation assay - 03/18/17 13:19 Prothrombin time (PT) in platelet poor plasma by coagu lation assay 13.1 s 12.2-14.7 INR in platelet poor plasma or blood by coagulation as say 1.0 0.8-1.4 Activated partial thromboplastin time (a PTT) in platelet poor plasma bycoagulation assay - 03/18/17 13:19 Activated partial thromboplastin time (a PTT) in platelet poor plasma bycoagulation assay 29 s 24-35 Comprehensive metabolic panel - 03/18/17 13:19 Serum or plasma sodium measurement (moles/volume) 134 mmol/L 135-145 Serum or plasma potassium measurement (moles/volume) 4.1 mmol/L 3.6-5.0 Serum or plasma chloride measurement (moles/volume) 99 mmol/L 98-107 Carbon dioxide 26 mmol/L 21-32 Serum or plasma anion gap determination (moles/volume) 9 mmol/L 5-14 Serum or plasma urea nitrogen measurement (mass/volume ) 8 mg/dL 7-18 Serum or plasma creatinine measurement (mass/volume) 0.69 mg/dL 0.60-1.30 Serum or plasma urea nitrogen/creatinine mass ratio 12 NRG Serum or plasma creatinine measurement w ith calculation of estimated glomerular filtration rate > NRG Serum or plasma glucose measurement (mass/volume) 106 mg/dL 70-105 Serum or plasma calcium measurement (mass/volume) 9.0 mg/dL 8.5-10.1 Serum or plasma total bilirubin measurement (mass/volu me) 0.3 mg/dL 0.1-1.0 Serum or plasma alkaline phosphatase kulwinder surement (enzymatic activity/volume) 70 U/L 40-136 Serum or plasma aspartate aminotransfera se measurement (enzymatic activity/volume) 14 U/L 5-34 Serum or plasma alanine aminotransferase measurement (enzymatic activity/volume) 9 U/L 0-55 Serum or plasma protein measurement (mass/volume) 7.0 g/dL 6.4-8.2 Serum or plasma albumin measurement (mass/volume) 3.5 g/dL 3.2-4.5 Magnesium - 03/18/17 13:19 Magnesium 1.7 mg/dL 1.8-2.4 Serum or plasma troponin i.cardiac measu rement (mass/volume) - 03/18/17 13:19 Serum or plasma troponin i.cardiac measurement (mass/v olume) < ng/mL <0.30 Myoglobin, serum - 03/18/17 13:19 Myoglobin, serum 33.9 ng/mL 10.0-92.0 Complete urinalysis with reflex to cultu re - 03/18/17 13:55 Urine color determination YELLOW NRG Urine clarity determination CLEAR NR G Urine pH measurement by test strip 7 5-9 Specific gravity of urine by test strip 1.005 1.016-1.022 Urine protein assay by test strip, semi-quantitative NEGATIVE NEGATIVE Urine glucose detection by automated test strip NE GATIVE NEGATIVE Erythrocytes detection in urine sediment by light micr oscopy NEGATIVE NEGATIVE Urine ketones detection by automated test strip NE GATIVE NEGATIVE Urine nitrite detection by test strip NEGATIVE NEGATIVE Urine total bilirubin detection by test strip NEGA TIVE NEGATIVE Urine urobilinogen measurement by automated test strip (mass/volume) NORMAL NORMAL Urine leukocyte esterase detection by dipstick NEG ATIVE NEGATIVE Automated urine sediment erythrocyte cou nt by microscopy (number/high power field) NONE NRG Automated urine sediment leukocyte count by microscopy (number/high power field) [HPF] NRG Bacteria detection in urine sediment by light microsco py FEW NRG Squamous epithelial cells detection in u rine sediment by light microscopy 10-25 NRG Crystals detection in urine sediment by light microsco py PRESENT NRG Casts detection in urine sediment by light microscopy NONE NRG Mucus detection in urine sediment by light microscopy NEGATIVE NRG Complete urinalysis with reflex to culture NO NRG Amorphous sediment detection in urine sediment by ligh t microscopy RARE SD URATES NRG RA (RHEUMATOID) FACTOR - 04/28/17 09:33 RHEUMATOID FACTOR 14 IU/mL <14 Automated blood complete blood count (he mogram) panel - 06/10/17 08:34 Blood leukocytes automated count (number/volume) 23.3 10*3/uL 4.3-11.0 Blood erythrocytes automated count (number/volume) 4.39 10*6/uL 4.35-5.85 Venous blood hemoglobin measurement (mass/volume) 13.8 g/dL 11.5-16.0 Blood hematocrit (volume fraction) 41 % 35-52 Automated erythrocyte mean corpuscular volume 92 [ foz_us] 80-99 Automated erythrocyte mean corpuscular h emoglobin (mass per erythrocyte) 31 pg 25-34 Automated erythrocyte mean corpuscular h emoglobin concentration measurement (mass/volume) 34 g/dL 32-36 Automated erythrocyte distribution width ratio 13. 9 % 10.0- 14.5 Automated blood platelet count (count/volume) 418 10*3/uL 130-400 Automated blood platelet mean volume measurement 9.2 [foz_us] 7.4-10.4 PT panel in platelet poor plasma by coag ulation assay - 06/10/17 08:34 Prothrombin time (PT) in platelet poor plasma by coagu lation assay 13.8 s 12.2-14.7 INR in platelet poor plasma or blood by coagulation as say 1.1 0.8-1.4 Activated partial thromboplastin time (a PTT) in platelet poor plasma bycoagulation assay - 06/10/17 08:34 Activated partial thromboplastin time (a PTT) in platelet poor plasma bycoagulation assay 34 s 24-35 Comprehensive metabolic panel - 06/10/17 08:34 Serum or plasma sodium measurement (moles/volume) 133 mmol/L 135-145 Serum or plasma potassium measurement (moles/volume) 3.9 mmol/L 3.6-5.0 Serum or plasma chloride measurement (moles/volume) 98 mmol/L 98-107 Carbon dioxide 25 mmol/L 21-32 Serum or plasma anion gap determination (moles/volume) 10 mmol/L 5-14 Serum or plasma urea nitrogen measurement (mass/volume ) 17 mg/dL 7-18 Serum or plasma creatinine measurement (mass/volume) 0.78 mg/dL 0.60-1.30 Serum or plasma urea nitrogen/creatinine mass ratio 22 NRG Serum or plasma creatinine measurement w ith calculation of estimated glomerular filtration rate > NRG Serum or plasma glucose measurement (mass/volume) 98 mg/dL 70-105 Serum or plasma calcium measurement (mass/volume) 9.2 mg/dL 8.5-10.1 Serum or plasma total bilirubin measurement (mass/volu me) 0.3 mg/dL 0.1-1.0 Serum or plasma alkaline phosphatase kulwinder surement (enzymatic activity/volume) 79 U/L 40-136 Serum or plasma aspartate aminotransfera se measurement (enzymatic activity/volume) 13 U/L 5-34 Serum [...] Serum or plasma cholesterol in HDL measurement (mass/v olume) 61 mg/dL 40-60 Cholesterol in LDL [mass/volume] in serum or plasma by direct assay 116 mg/dL 1-129 Serum or plasma cholesterol in VLDL measurement (mass/ volume) 17 mg/dL 5-40 Methicillin resistant Staphylococcus aur eus (MRSA) screening culture - 06/10/17 08:34 Methicillin resistant Staphylococcus aureus (MRSA) scr eening culture NEG NRG Pathologist review of blood test by comm ent - 06/10/17 15:15 Blood leukocytes automated count (number/volume) 14.7 10*3/uL 4.3-11.0 Blood erythrocytes automated count (number/volume) 4.25 10*6/uL 4.35-5.85 Venous blood hemoglobin measurement (mass/volume) 13.1 g/dL 11.5-16.0 Blood hematocrit (volume fraction) 39 % 35-52 Automated erythrocyte mean corpuscular volume 93 [ foz_us] 80-99 Automated erythrocyte mean corpuscular h emoglobin (mass per erythrocyte) 31 pg 25-34 Automated erythrocyte mean corpuscular h emoglobin concentration measurement (mass/volume) 33 g/dL 32-36 Automated erythrocyte distribution width ratio 14. 0 % 10.0- 14.5 Automated blood platelet count [...] 10*3 1.0-4.0 Blood monocytes automated count (number/volume) 0. 7 10*3 0.0-1.0 Automated eosinophil count 0.1 10*3/uL 0 .0-0.3 Automated blood basophil count (count/volume) 0.0 10*3/uL 0.0-0.1 Manual blood segmented neutrophils/100 leukocytes 62 % NRG Blood band neutrophils/100 leukocytes 0 % NRG Manual blood lymphocytes/100 leukocytes 34 % NRG Manual eosinophils/100 leukocytes in nose 0 % NRG Manual blood basophils/100 leukocytes 1 % NRG Blood erythrocyte morphology finding identification NORMAL NRG Blood reticulocytes count (number/volume) 39 10*9/ L 24-90 Blood reticulocytes/100 erythrocytes 0.91 % 0.50-2.40 Blood lactic acid measurement (moles/vol ume) - 06/10/17 15:15 Blood lactic acid measurement (moles/volume) 0.85 mmol/L 0.50-2.00 THYROID STIMULATING HORMONE - 06/10/17 1 5:15 THYROID STIMULATING HORMONE 1.13 u[iU]/mL 0.35-4.94 Bacterial blood culture - 06/10/17 15:15 Bacterial blood culture NG NRG Bacterial blood culture - 06/10/17 15:21 Bacterial blood culture NG NRG Complete urinalysis with reflex to cultu re - 06/10/17 16:10 Urine color determination YELLOW NRG Urine clarity determination CLEAR NR G Urine pH measurement by test strip 6.5 5-9 Specific gravity of urine by test strip 1.005 1.016-1.022 Urine protein assay by test strip, semi-quantitative 1+ NEGATIVE Urine glucose detection by automated test strip NE GATIVE NEGATIVE Erythrocytes detection in urine sediment by light micr oscopy 2+ NEGATIVE Urine ketones detection by automated test strip NE GATIVE NEGATIVE Urine nitrite detection by test strip NEGATIVE NEGATIVE Urine total bilirubin detection by test strip NEGA TIVE NEGATIVE Urine urobilinogen measurement by automated test strip (mass/volume) NORMAL NORMAL Urine leukocyte esterase detection by dipstick NEG ATIVE NEGATIVE Automated urine sediment erythrocyte cou nt by microscopy (number/high power field) RARE NRG Automated urine sediment leukocyte count by microscopy (number/high power field) RARE NRG Bacteria detection in urine sediment by light microsco py NEGATIVE NRG Crystals detection in urine sediment by light microsco py NONE NRG Casts detection in urine sediment by light microscopy NONE NRG Mucus detection in urine sediment by light microscopy NEGATIVE NRG Complete urinalysis with reflex to culture NO NRG RAFAELA ANALYZER - 07/15/17 09:28 RAFAELA SCREEN, IFA NEGATIVE NEGATIVE Arterial blood gas measurement - 8 15:05 Blood pCO2 41 mm[Hg] 35-45 Blood pO2 86 mm[Hg] 79-93 Arterial blood bicarbonate measurement (moles/volume) 22 mmol/L 23-27 Arterial blood base excess by calculation -2.4 mmo l/L -2.5-2.5 Arterial blood oxygen saturation measurement 97 % 94-100 * Inhaled oxygen flow rate ROOM AIR NRG Arterial blood pH measurement with patient temperature correction 7.35 7.37-7.43 Arterial blood carbon dioxide, total measurement (mole s/volume) 23.7 mmol/L 21.0-31.0 Body site RR NRG Assessment of wrist artery patency prior to arterial p uncture YES-POS NRG Setting of ventilation mode NO NR G Measurement of body temperature 97.3 NRG PDM - 09 PANEL (PROFILE 1) - 08/26/17 16 :09 Prescribed Drug 1 Morphine NRG Creatinine 53.5 mg/dL > or = 20.0 pH 6.71 4.5 - 9.0 Oxidant NEGATIVE [...] ng/mL <50 medMATCH Hydromorphone CONSISTENT NRG Morphine >61300 ng/mL <50 medMATCH Morphine CONSISTENT NRG Norhydrocodone 805 ng/mL <50 medMATCH Norhydrocodone INCONSISTENT NR G Prescribed Drug 2 Oxycodone NRG Prescribed Drug [...] CONSISTENT NRG Complete blood count (CBC) with automate d white blood cell (WBC) differential - 08/31/18 09:59 Blood leukocytes automated count (number/volume) 12.8 10*3/uL 4.3-11.0 Blood erythrocytes automated count (number/volume) 4.26 10*6/uL 4.35-5.85 Venous blood hemoglobin measurement (mass/volume) 13.3 g/dL 11.5-16.0 Blood hematocrit (volume fraction) 41 % 35-52 Automated erythrocyte mean corpuscular volume 96 [ foz_us] 80-99 Automated erythrocyte mean corpuscular h emoglobin (mass per erythrocyte) 31 pg 25-34 Automated erythrocyte mean corpuscular h emoglobin concentration measurement (mass/volume) 33 g/dL 32-36 Automated erythrocyte distribution width ratio 14. 0 % 10.0- 14.5 Automated blood platelet count [...] 10*3 1.0-4.0 Blood monocytes automated count (number/volume) 1. 0 10*3 0.0-1.0 Automated eosinophil count 0.3 10*3/uL 0 .0-0.3 Automated blood basophil count (count/volume) 0.1 10*3/uL 0.0-0.1 Blood blood smear finding identification by light micr oscopy YES NRG PT panel in platelet poor plasma by coag ulation assay - 08/31/18 09:59 Prothrombin time (PT) in platelet poor plasma by coagu lation assay 14.2 s 12.2-14.7 INR in platelet poor plasma or blood by coagulation as say 1.1 0.8-1.4 Activated partial thromboplastin time (a PTT) in platelet poor plasma bycoagulation assay - 08/31/18 09:59 Activated partial thromboplastin time (a PTT) in platelet poor plasma bycoagulation assay 29 s 24-35 Comprehensive metabolic panel - 08/31/18 09:59 Serum or plasma sodium measurement (moles/volume) 139 mmol/L 135-145 Serum or plasma potassium measurement (moles/volume) 3.9 mmol/L 3.6-5.0 Serum or plasma chloride measurement (moles/volume) 98 mmol/L 98-107 Carbon dioxide 24 mmol/L 21-32 Serum or plasma anion gap determination (moles/volume) 17 mmol/L 5-14 Serum or plasma urea nitrogen measurement (mass/volume ) 14 mg/dL 7-18 Serum or plasma creatinine measurement (mass/volume) 0.76 mg/dL 0.60-1.30 Serum or plasma urea nitrogen/creatinine mass ratio 18 NRG Serum or plasma creatinine measurement w ith calculation of estimated glomerular filtration rate > NRG Serum or plasma glucose measurement (mass/volume) 136 mg/dL 70-105 Serum or plasma calcium measurement (mass/volume) 9.5 mg/dL 8.5-10.1 Serum or plasma total bilirubin measurement (mass/volu me) 0.4 mg/dL 0.1-1.0 Serum or plasma alkaline phosphatase kulwinder surement (enzymatic activity/volume) 79 U/L 40-136 Serum or plasma aspartate aminotransfera se measurement (enzymatic activity/volume) 19 U/L 5-34 Serum or plasma alanine aminotransferase measurement (enzymatic activity/volume) 14 U/L 0-55 Serum or plasma protein measurement (mass/volume) 7.8 g/dL 6.4-8.2 Serum or plasma albumin measurement (mass/volume) 4.1 g/dL 3.2-4.5 CALCIUM CORRECTED 9.4 mg/dL 8.5-10.1 Magnesium - 08/31/18 09:59 Magnesium 1.9 mg/dL 1.8-2.4 TROPONIN T - 08/31/18 09:59 TROPONIN T 15 % <=10 Myoglobin, serum - 08/31/18 09:59 Myoglobin, serum < ng/mL 10.0-92.0 Methicillin resistant Staphylococcus aur eus (MRSA) screening culture - 08/31/18 13:50 Methicillin resistant Staphylococcus aureus (MRSA) scr eening culture NEG NRG Automated blood complete blood count (he mogram) panel - 09/01/18 03:05 Blood leukocytes automated count (number/volume) 11.2 10*3/uL 4.3-11.0 Blood erythrocytes automated count (number/volume) 3.54 10*6/uL 4.35-5.85 Venous blood hemoglobin measurement (mass/volume) 11.1 g/dL 11.5-16.0 Blood hematocrit (volume fraction) 34 % 35-52 Automated erythrocyte mean corpuscular volume 95 [ foz_us] 80-99 Automated erythrocyte mean corpuscular h emoglobin (mass per erythrocyte) 31 pg 25-34 Automated erythrocyte mean corpuscular h emoglobin concentration measurement (mass/volume) 33 g/dL 32-36 Automated erythrocyte distribution width ratio 14. 5 % 10.0- 14.5 Automated blood platelet count (count/volume) 359 10*3/uL 130-400 Automated blood platelet mean volume measurement 10.0 [foz_us] 7.4-10.4 Whole blood basic metabolic panel - 08/15 11/02 03:05 Serum or plasma sodium measurement (moles/volume) 139 mmol/L 135-145 Serum or plasma potassium measurement (moles/volume) 4.2 mmol/L 3.6-5.0 Serum or plasma chloride measurement (moles/volume) 110 mmol/L 98-107 Carbon dioxide 20 mmol/L 21-32 Serum or plasma anion gap determination (moles/volume) 9 mmol/L 5-14 Serum or plasma urea nitrogen measurement (mass/volume ) 13 mg/dL 7-18 Serum or plasma creatinine measurement (mass/volume) 0.70 mg/dL 0.60-1.30 Serum or plasma urea nitrogen/creatinine mass ratio 19 NRG Serum or plasma creatinine measurement w ith calculation of estimated glomerular filtration rate > NRG Serum or plasma glucose measurement (mass/volume) 90 mg/dL 70-105 Serum or plasma calcium measurement (mass/volume) 8.6 mg/dL 8.5-10.1 Automated blood complete blood count (he mogram) panel - 09/02/18 05:25 Blood leukocytes automated count (number/volume) 14.3 10*3/uL 4.3-11.0 Blood erythrocytes automated count (number/volume) 3.57 10*6/uL 4.35-5.85 Venous blood hemoglobin measurement (mass/volume) 11.1 g/dL 11.5-16.0 Blood hematocrit (volume fraction) 34 % 35-52 Automated erythrocyte mean corpuscular volume 94 [ foz_us] 80-99 Automated erythrocyte mean corpuscular h emoglobin (mass per erythrocyte) 31 pg 25-34 Automated erythrocyte mean corpuscular h emoglobin concentration measurement (mass/volume) 33 g/dL 32-36 Automated erythrocyte distribution width ratio 14. 1 % 10.0- 14.5 Automated blood platelet count (count/volume) 319 10*3/uL 130-400 Automated blood platelet mean volume measurement 10.2 [foz_us] 7.4-10.4 Comprehensive metabolic panel - 09/02/18 05:25 Serum or plasma sodium measurement (moles/volume) 135 mmol/L 135-145 Serum or plasma potassium measurement (moles/volume) 3.8 mmol/L 3.6-5.0 Serum or plasma chloride measurement (moles/volume) 103 mmol/L 98-107 Carbon dioxide 21 mmol/L 21-32 Serum or plasma anion gap determination (moles/volume) 11 mmol/L 5-14 Serum or plasma urea nitrogen measurement (mass/volume ) 9 mg/dL 7-18 Serum or plasma creatinine measurement (mass/volume) 0.72 mg/dL 0.60-1.30 Serum or plasma urea nitrogen/creatinine mass ratio 13 NRG Serum or plasma creatinine measurement w ith calculation of estimated glomerular filtration rate > NRG Serum or plasma glucose measurement (mass/volume) 103 mg/dL 70-105 Serum or plasma calcium measurement (mass/volume) 8.8 mg/dL 8.5-10.1 Serum or plasma total bilirubin measurement (mass/volu me) 0.5 mg/dL 0.1-1.0 Serum or plasma alkaline phosphatase kulwinder surement (enzymatic activity/volume) 73 U/L 40-136 Serum or plasma aspartate aminotransfera se measurement (enzymatic activity/volume) 98 U/L 5-34 Serum or plasma alanine aminotransferase measurement (enzymatic activity/volume) 27 U/L 0-55 Serum or plasma protein measurement (mass/volume) 6.6 g/dL 6.4-8.2 Serum or plasma albumin measurement (mass/volume) 3.5 g/dL 3.2-4.5 CALCIUM CORRECTED 9.2 mg/dL 8.5-10.1 Lipid 1996 panel - 09/02/18 05:25 Serum or plasma triglyceride measurement (mass/volume) 82 mg/dL <150 Serum or plasma cholesterol measurement (mass/volume) 130 mg/dL < 200 Serum or plasma cholesterol in HDL measurement (mass/v olume) 43 mg/dL 40-60 Cholesterol in LDL [mass/volume] in serum or plasma by direct assay 74 mg/dL 1-129 Serum or plasma cholesterol in VLDL measurement (mass/ volume) 16 mg/dL 5-40 CBC - 04/27/19 16:36 WHITE BLOOD CELL COUNT 13.9 Thousand/uL 3.8-10.8 RED BLOOD CELL COUNT 4.45 Million/uL 3.8 0-5.10 HEMOGLOBIN 14.6 g/dL 11.7-15.5 HEMATOCRIT 42.9 % 35.0-45.0 MCV 96.4 fL 80.0-100.0 MCH 32.8 pg 27.0-33.0 MCHC 34.0 g/dL 32.0-36.0 RDW 13.2 % 11.0-15.0 PLATELET COUNT 340 Thousand/uL 140-400 MPV 9.9 fL 7.5-12.5 ABSOLUTE NEUTROPHILS 8257 cells/uL 1500- 7800 ABSOLUTE LYMPHOCYTES 4531 cells/uL 850-3 900 ABSOLUTE MONOCYTES 890 cells/uL 200-950 ABSOLUTE EOSINOPHILS 153 cells/uL 15-500 ABSOLUTE BASOPHILS 70 cells/uL 0-200 NEUTROPHILS 59.4 % NRG LYMPHOCYTES 32.6 % NRG MONOCYTES 6.4 % NRG EOSINOPHILS 1.1 % NRG BASOPHILS 0.5 % NRG ESR/SED RATE - 04/27/19 16:36 SED RATE BY MODIFIED WESTERGREN 25 mm/h < OR = 30 CRP - 04/27/19 16:36 C-REACTIVE PROTEIN 3.7 mg/L <8.0 PDM - ATS (PROFILE 8 WITH CONFIRMATION) - 08/10/19 09:31 Prescribed Drug 1 Buprenorphine NRG Creatinine 111.2 mg/dL > or = 20.0 pH 5.5 4.5-9.0 Oxidant NEGATIVE mcg/mL <200 Amphetamines NEGATIVE ng/mL <500 medMATCH Amphetamines CONSISTENT NRG Benzodiazepines NEGATIVE ng/mL <100 medMATCH Benzodiazepines CONSISTENT NRG Marijuana Metabolite NEGATIVE ng/mL <20 medMATCH Marijuana Metab CONSISTENT NRG Cocaine Metabolite NEGATIVE ng/mL <150 medMATCH Cocaine Metab CONSISTENT NRG Opiates NEGATIVE ng/mL <100 medMATCH Opiates CONSISTENT NRG Oxycodone NEGATIVE ng/mL <100 medMATCH Oxycodone CONSISTENT NRG COMMENT NRG Buprenorphine POSITIVE ng/mL <5 Buprenorphine 336 ng/mL <2 medMATCH Buprenorphine CONSISTENT NR G Norbuprenorphine 677 ng/mL <2 medMATCH Norbuprenorphine CONSISTENT NR G MDMA NEGATIVE ng/mL <500 medMATCH MDMA CONSISTENT NRG Alcohol Metabolites NEGATIVE ng/mL <500 medMATCH Alcohol Metab CONSISTENT NRG 6 Acetylmorphine NEGATIVE ng/mL <10 medMATCH 6 Acetylmorphine CONSISTENT NR G Encounters ACCT No. Visit Date/Time Discharge Status Pt. Type Provider Facility Loc./Unit Complaint [id number] 04/27/2019 15:40:00 04/27/2019 23:59: 59 CLS Outpatient JOSS ABRAMS APRN [facility] [id number] 08/10/2019 08:40:00 Document Registration [id number] 04/27/2019 15:40:00 Document Registration [id number] 08/26/2017 13:40:00 Document Registration [id number] 07/15/2017 10:20:00 Document Registration [id number] 04/28/2017 09:20:00 Document Registration [id number] 01/22/2017 10:25:00 Document Registration [id number] 12/28/2018 11:00:00 020 00:01:00 DIS Outpatient JEY SANDRINE BORREGO FACC, FACP CC DS [facility] CR STENT 08/31 [id number] 12/25/2018 11:48:00 00:01:00 DIS Outpatient SANDRINE KHANNA MD, FACC, FACP CC DS [facility] CR STENT 08/31 [id number] 08/31/2018 10:45:00 15:40:00 DIS Inpatient SANDRINE KHANNA MD, FACC, FACP CCD S [facility] 4TH ACUTE AR [id number] 07/28/2018 09:14:00 11:40:00 DIS Outpatient NAVARRO ANTWON NOEL [facility] ENDO BLOOD IN STOOLS [id number] 07/24/2018 09:13:00 11:21:00 DIS Outpatient ANTWON NAVARRO DO [facility] PREOP COLONOSCOPY [id number] 11/24/2017 09:30:00 018 23:59:59 CLS Preadmit SHANNON BARRETT APRN [facility] PULM RESTRICTIVE RILEY G DISEASE [id number] 08/25/2017 09:19:00 018 00:01:00 DIS Outpatient SHANNON BARRETT APRN [facility] PULM RESTRICTIVE RILEY G DISEASE [id number] 09/29/2017 15:30:00 018 23:59:59 CLS Preadmit SANTIAGO BORREGO, JUANITA Bobby (DDU) [facility] RT COPD [id number] 08/06/2017 13:27:00 018 23:59:59 CLS Outpatient SHANNON BARRETT LEVELER HELPER [facility] RAD RESTRICTIVE RILEY G DISEASE [id number] 07/12/2017 21:24:00 018 06:35:00 DIS Outpatient SHANNON BARRETT APRN [facility] SLEEP G47.30 SUSPECTE D SLEEP APNEA [id number] 07/02/2017 11:43:00 018 23:59:59 CLS Outpatient SHANNON BARRETT APRN [facility] RT R06.00 DYSPNEA [id number] 06/19/2017 13:03:00 018 23:59:59 CLS Outpatient MATEO CARY [facility] CARD CHEST PAIN R07. 9 [id number] 06/10/2017 08:07:00 018 17:40:00 DIS Outpatient MATEO CARY DEFECT CUTTER [facility] [facility] ANGINA,SOB,FATI SHEELA [id number] 06/03/2017 13:56:00 018 23:59:59 CLS Outpatient MATEO CARYP [facility] RAD CHEST PAIN R07. 9 [id number] 03/18/2017 11:58:00 018 15:50:00 DIS Emergency CELIA COSBY [facility] ER HEARTBURN/JAW PAIN [id number] 10/19/2019 09:00:[address] Outpatient JEY BORREGO FACC, SANDRINE MIRANDA CCDS [facility] CATH CAD [id number] 03/29/2019 11:00:00 Document Registration [id number] 09/27/2016 15:15:02 ACT Unknown
== END 2019-10-19 15:10 | disposition home or self-care (01) ==
LOC: CATH 09:00 → SDC 12:08 → CATH 15:10
PROVIDERS: ATTEND Internal Medicine Cardiovascular Disease
DX: I25.119 Atherosclerotic heart disease of native coronary artery with unspecified angina pectoris (principal); G47.10 Hypersomnia, unspecified; J44.9 Chronic obstructive pulmonary disease, unspecified; J32.9 Chronic sinusitis, unspecified; F32.9 Major depressive disorder, single episode, unspecified; I27.20 Pulmonary hypertension, unspecified; Z79.82 Long term (current) use of aspirin; Z79.51 Long term (current) use of inhaled steroids; Z79.899 Other long term (current) drug therapy; Z88.8 Allergy status to other drugs, medicaments and biological substances; Z87.891 Personal history of nicotine dependence; Z83.3 Family history of diabetes mellitus
CPT/HCPCS: 80053; 80061; 85027; 85610; 85730; 87081; 93458; C1760; C1894; 36415

== ENCOUNTER → 2020-06-20 | Outpatient (CLI) | payer MEDICARE, MEDICAID ==
[~2020-06-20] MED LIST changes: +FLUT1DIS26 IH
== END ==
LOC: CARD 13:32
PROVIDERS: ATTEND Nurse Practitioner Family
DX: I34.0 Nonrheumatic mitral (valve) insufficiency (principal)
CPT/HCPCS: 93306

== ENCOUNTER 2020-07-25 12:53 | Emergency (ER) | payer MEDICARE, MEDICAID ==
[~2020-07-25] VITALS: Ht 145 cm; Wt 58.9 kg
--- NOTE | 2020-07-25 13:01 | ED Dyspnea ---
General Chief Complaint: Respiratory Problems Stated Complaint: SOB; CHEST CONGESTION History of Present Illness Date Seen by Provider: July 25, 2020 Time Seen by Provider: 13:01 Initial Comments 65-year-old female presents with some shortness of breath, chest congestion, 7 pound weight gain over the last 10 days, some increased edema in her lower extremities. Patient has a history of COPD with some frequent exacerbations. She however states that she does not have any increased cough or change in her c ough. She has some exertional dyspnea. She normally wears 2 L home oxygen at night. She is diffusely wheezy. She denies any chest pain, fevers or chills. Allergies and Home Medications Allergies Coded Allergies: mirtazapine (Verified Adverse Reaction, Unknown, horrible nightmares, 07/24/18) Home Medications Aspirin 81 Mg Tablet.dr, 81 MG PO DAILY, (Reported) Atorvastatin Calcium 40 Mg Tablet, 40 MG PO HS Prescribed by: MATEO CARY on 09/02/18 1233 Buprenorphine HCl 8 Mg Tab.subl, 8 MG SL TID, (Reported) Cetirizine HCl 10 Mg Tablet, 10 MG PO DAILY, (Reported) Clopidogrel Bisulfate 75 Mg Tablet, 75 MG PO DAILY Prescribed by: MATEO CARY on 09/02/18 1233 Duloxetine HCl 60 Mg Capsule.dr, 120 MG PO DAILY, (Reported) TAKE 2 (60MG) TABS Fluticasone/Salmeterol 1 Each Blst.w.dev, 1 EACH IH Q12H, (Reported) Ipratropium/Albuterol Sulfate 3 Ml Ampul.neb, 3 ML IH Q4H PRN for SHORTNESS OF BREATH, (Reported) Metoprolol Succinate 25 Mg Tab.er.24h, 12.5 MG PO DAILY Prescribed by: MATEO CARY on 09/02/18 1233 Nitroglycerin 0.4 Mg Tab.subl, 0.4 MG SL PRN PRN for CHEST PAIN, (Reported) Patient Home Medication List Home Medication List Reviewed: Yes Review of Systems Review of Systems Constitutional: No chills, No fever Respiratory: cough, short of breath, wheezing Cardiovascular: No chest pain; edema Gastrointestinal: no symptoms reported Genitourinary: no symptoms reported Musculoskeletal: no symptoms reported Skin: no symptoms reported Psychiatric/Neurological: No Symptoms Reported Endocrine: No Symptoms Reported Past Mivvopn-Wxttsr-Lmawsy Hx Past Med/Social Hx: Reviewed Nursing Past Med/Soc Hx Patient Social History Type Used: Cigarettes 2nd Hand Smoke Exposure: No Recent Hopitalizations: No Immunizations Up To Date Date of Pneumonia Vaccine: Dec 18, 2016 Date of Influenza Vaccine: Dec 18, 2018 Seasonal Allergies Seasonal Allergies: No Past Medical History Surgeries: Yes Coronary Stent Respiratory: Yes (O2 2L AT HS) COPD Cardiac: Yes Coronary Artery Disease, Heart Attack, High Cholesterol, Hypertension Neurological: Yes Headaches /Migraines Genitourinary: No Gastrointestinal: No Chronic Constipation, Irritable Bowel Musculoskeletal: Yes Fibromyalgia, Rheumatoid Arthritis Endocrine: No HEENT: No Cancer: Yes Cervical Did You Recieve Any Treatments: Yes What Type of Treatment Did You: Surgical Intervention Psychosocial: Yes Depression Integumentary: No Eczema Blood Disorders: No Adverse Reaction/Blood Tranf: No Physical Exam Vital Signs Vital Signs - First Documented 07/25/20 12:58 Temp 36.2 Pulse 91 Resp 25 B/P (MAP) 120/62 (81) Pulse Ox 96 O2 Delivery Room Air Capillary Refill : Height, Weight, BMI Height: 4'9.00" Weight: 100lbs. 2.0oz. 45.831737hv; 23.04 BMI Method:Stated General Appearance: No Apparent Distress HEENT: PERRL/EOMI Neck: Normal Inspection Respiratory: No Accessory Muscle Use, No Respiratory Distress, Decreased Breath Sounds (Mild diffuse), Wheezing, Other (Mild conversational dyspnea) Cardiovascular: Regular Rate, Rhythm, Other (2+ lower extremity edema) Gastrointestinal: Non Tender, Soft Extremity: Normal Capillary Refill Neurologic/Psychiatric: Alert, Oriented x3, Normal Mood/Affect Skin: Normal Color, Warm/Dry Progress/Results/Core Measures Results/Orders Lab Results Laboratory Tests Test 07/25/20 13:15 Range/Units White Blood Count 14.0 H 4.3-11.0 10^3/uL Red Blood Count 3.71 L 4.35-5.85 10^6/uL Hemoglobin 10.8 L 11.5-16.0 G/DL Hematocrit 33 L 35-52 % Mean Corpuscular Volume 89 80-99 FL Mean Corpuscular Hemoglobin 29 25-34 PG Mean Corpuscular Hemoglobin Concent 33 32-36 G/DL Red Cell Distribution Width 15.1 H 10.0-14.5 % Platelet Count 361 130-400 10^3/uL Mean Platelet Volume 9.0 7.4-10.4 FL Immature Granulocyte % (Auto) 0 % Neutrophils (%) (Auto) 43 42-75 % Lymphocytes (%) (Auto) 48 H 12-44 % Monocytes (%) (Auto) 8 0-12 % Eosinophils (%) (Auto) 2 0-10 % Basophils (%) (Auto) 0 0-10 % Neutrophils # (Auto) 6.0 1.8-7.8 X 10^3 Lymphocytes # (Auto) 6.7 H 1.0-4.0 X 10^3 Monocytes # (Auto) 1.1 H 0.0-1.0 X 10^3 Eosinophils # (Auto) 0.2 0.0-0.3 10^3/uL Basophils # (Auto) 0.0 0.0-0.1 10^3/uL Immature Granulocyte # (Auto) 0.0 0.0-0.1 10^3/uL Neutrophils % (Manual) 37 % Lymphocytes % (Manual) 56 % Monocytes % (Manual) 3 % Eosinophils % (Manual) 4 % Basophils % (Manual) 0 % Band Neutrophils 0 % Sodium Level 133 L 135-145 MMOL/L Potassium Level 3.8 3.6-5.0 MMOL/L Chloride Level 99 98-107 MMOL/L Carbon Dioxide Level 25 21-32 MMOL/L Anion Gap 9 5-14 MMOL/L Blood Urea Nitrogen 18 7-18 MG/DL Creatinine 0.87 0.60-1.30 MG/DL Estimat Glomerular Filtration Rate > 60 BUN/Creatinine Ratio 21 Glucose Level 83 70-105 MG/DL Calcium Level 8.6 8.5-10.1 MG/DL Corrected Calcium 8.8 8.5-10.1 MG/DL Magnesium Level 2.1 1.6-2.4 MG/DL Total Bilirubin 0.2 0.1-1.0 MG/DL Aspartate Amino Transf (AST/SGOT) 17 5-34 U/L Alanine Aminotransferase (ALT/SGPT) 16 0-55 U/L Alkaline Phosphatase 105 40-136 U/L Pro-B-Type Natriuretic Peptide 1586.0 H <75.0 PG/ML Total Protein 6.7 6.4-8.2 GM/DL Albumin 3.7 3.2-4.5 GM/DL My Orders Orders - GARCIA,JUNIOR L DO Cbc With Automated Diff (07/25/20 13:05) Comprehensive Metabolic Panel (07/25/20 13:05) Magnesium (07/25/20 13:05) Probnp Fs (07/25/20 13:05) Ed Iv/Invasive Line Start (07/25/20 13:05) Ekg Tracing (07/25/20 13:05) Albuterol/Ipra Inhalation Soln (Duoneb I (07/25/20 13:15) Svn Small Volume Nebulizer (07/25/20 13:05) Furosemide Injection (Lasix Injection) (07/25/20 13:15) Manual Differential (07/25/20 13:15) Chest Pa/Lat (2 View) (07/25/20 13:37) Medications Given in ED Current Medications Medications Dose Ordered Sig/Faustino Route Start Time Stop Time Status Last Admin Dose Admin Albuterol/ Ipratropium 3 ml ONCE ONCE INH 07/25/20 13:15 07/25/20 13:16 DC 07/25/20 13:24 3 ML Furosemide 40 mg ONCE ONCE IVP 07/25/20 13:15 07/25/20 13:16 DC 07/25/20 13:24 40 MG Vital Signs/I&O 07/25/20 12:58 Temp 36.2 Pulse 91 Resp 25 B/P (MAP) 120/62 (81) Pulse Ox 96 O2 Delivery Room Air Progress Progress Note : Progress Note Patient showing no signs of acute respiratory distress. Patient ambulated to the restroom and back in the hallway with no difficulty with dyspnea. Patient is not having difficulty talking. Her O2 saturations are in the upper 90s. Patient was offered admission versus treatment at home and close follow-up. Patient would prefer not to be hospitalized. I will have her start on Lasix for 3 days. Use her nebulizer every 6 hours for 24 hours while awake. She should follow-up no later than 3 days from now with her primary care provider. She is to return to the ER if symptoms worsen. Initial ECG Impression Date: July 25, 2020 Initial ECG Impression Time: 13:06 Initial ECG Rate: 85 Initial ECG Rhythm: Normal Sinus Initial ECG Intervals incomplete RBBB, LAFB , sinus rhythm, no acute changes Initial ECG Impression: Nonspecific Changes Diagnostic Imaging Diagonstic Imaging: Xray Plain Films/CT/US/NM/MRI: chest Comments [facility] [address]. [place], [place] NAME: JEY BURCIAGA [facility] REC#: [id number] PT STATUS: REG ER : 1955 PHYSICIAN: JUNIOR GARCIA DO ADMIT DATE: 07/25/20/ER FS Draft Date of Exam:07/25/20 CHEST PA/LAT (2 VIEW) INDICATION: Shortness of breath, COPD. TECHNIQUE/COMPARISON: PA and lateral films of the chest were obtained at 1:52 PM and compared to 06/10/2017. FINDINGS: The heart is normal in size. There is central vascular congestion with interstitial edema and some bibasilar atelectasis. There is no pleural fluid, pneumothorax, or jessica consolidation. IMPRESSION: Central vascular congestion with interstitial edema as well as some bibasilar atelectasis. No pleural fluid or consolidation. Departure Impression Primary Impression: Pulmonary edema with congestive heart failure Additional Impression: COPD (chronic obstructive pulmonary disease) Qualified Codes: J42 - Unspecified chronic bronchitis Disposition: HOME, SELF-CARE Condition: Stable Departure-Patient Inst. Referrals: ELIEZER EVANS APRN (PCP) Primary Care Physician [facility] (Family) Primary Care Physician Patient Instructions: Chronic Bronchitis (DC), Exacerbation of COPD (DC), CHF Add. Discharge Instructions: Follow-up with your primary care provider in the next 2 to 3 days Return to the ER as All discharge instructions reviewed with patient and/or family. Voiced understanding. Scripts Furosemide (Lasix) 20 Mg Tablet 40 MG PO DAILY for 3 Days, #6 TAB Prov: JUNIOR GARCIA DO 07/25/20 JUNIOR GARCIA DO July 25, 2020 13:01
[2020-07-25] MEDS ORDERED: RT-ALBUTEROL/IPRATROPIUM 3 ML (DUONEB) VIAL INH ONE (13:15)
[2020-07-25] MEDS ORDERED: FUROSEMIDE 40 MG/4 ML INJ (LASIX) IVP ONE (13:15)
[2020-07-25 13:31] LABS: BASOPHILS % (AUTO) 0 % (0-10); EOSINOPHILS % (AUTO) 2 % (0-10); HEMATOCRIT 33 % (35-52); HEMOGLOBIN 10.8 G/DL (11.5-16.0); LYMPHOCYTES % (AUTO) 48 % (12-44); MEAN CORPUSCULAR HEMOGLOBIN 29 PG (25-34); MEAN CORPUSCULAR HGB CONC 33 G/DL (32-36); MEAN CORPUSCULAR VOLUME 89 FL (80-99); MONOCYTES % (AUTO) 8 % (0-12); NEUTROPHILS % (AUTO) 43 % (42-75); PLATELET COUNT 361 10^3/uL (130-400)
[2020-07-25 13:32] LABS: EOSINOPHILS # (AUTO) 0.2 10^3/uL (0.0-0.3); LYMPHOCYTES # (AUTO) 6.7 X 10^3 (1.0-4.0); MONOCYTES # (AUTO) 1.1 X 10^3 (0.0-1.0)
[2020-07-25 13:58] LABS: CARBON DIOXIDE 25 MMOL/L (21-32); CHLORIDE 99 MMOL/L (98-107); POTASSIUM 3.8 MMOL/L (3.6-5.0); SODIUM 133 MMOL/L (135-145)
[2020-07-25 13:59] LABS: ALANINE AMINOTRANSFERASE 16 U/L (0-55); ALKALINE PHOSPHATASE 105 U/L (40-136); BILIRUBIN,TOTAL 0.2 MG/DL (0.1-1.0); BUN/CREATININE RATIO 21; CALCIUM 8.6 MG/DL (8.5-10.1); CREATININE SERUM 0.87 MG/DL (0.60-1.30); GFR ESTIMATED > 60; GLUCOSE 83 MG/DL (70-105); MAGNESIUM 2.1 MG/DL (1.6-2.4); TOTAL PROTEIN 6.7 GM/DL (6.4-8.2)
[2020-07-25 14:00] LABS: ALBUMIN 3.7 GM/DL (3.2-4.5); BAND NEUTROPHILS 0 %; BASOPHILS % (MANUAL) 0 %; EOSINOPHILS % (MANUAL) 4 %; LYMPHOCYTES % (MANUAL) 56 %; MONOCYTES % (MANUAL) 3 %; NEUTROPHILS % (MANUAL) 37 %
--- NOTE | 2020-07-25 14:00 | Diagnostic Imaging Report ---
INDICATION: Shortness of breath, COPD. TECHNIQUE/COMPARISON: PA and lateral films of the chest were obtained at 1:52 PM and compared to 06/10/2017. FINDINGS: The heart is normal in size. There is central vascular congestion with interstitial edema and some bibasilar atelectasis. There is no pleural fluid, pneumothorax, or jessica consolidation. IMPRESSION: Central vascular congestion with interstitial edema as well as some bibasilar atelectasis. No pleural fluid or consolidation. Dictated by: Dictated on workstation # [id number]
[2020-07-25] MEDS ORDERED: FURO-125 PO (14:14)
[2020-07-25 14:45] VITALS: BP 120/68
== END 2020-07-25 14:35 | disposition home or self-care (01) ==
LOC: EDUNIT# 12:53 → ER FS 12:55
DX: I11.0 Hypertensive heart disease with heart failure (principal); I50.1 Left ventricular failure, unspecified; J44.9 Chronic obstructive pulmonary disease, unspecified; I25.2 Old myocardial infarction; E78.00 Pure hypercholesterolemia, unspecified; F32.9 Major depressive disorder, single episode, unspecified; Z88.8 Allergy status to other drugs, medicaments and biological substances; Z79.82 Long term (current) use of aspirin; Z79.899 Other long term (current) drug therapy
CPT/HCPCS: 36415; 71046; 80053; 83735; 83880; 85007; 85027; 93005

== ENCOUNTER 2020-07-31 14:07 | Observation (INO) | payer MEDICARE, MEDICAID ==
[~2020-07-31] VITALS: Ht 144.7 cm; Wt 57.0 kg
[~2020-07-31 14:07] MED LIST changes: +FURO-125 PO
--- NOTE | 2020-07-31 14:39 | ED Dyspnea ---
General Chief Complaint: Respiratory Problems Stated Complaint: SOB Nursing Triage Note: Sent from clinic due to shortness of breath and lower extremity swelling. Was seen in ED last week and given diuretics for CHF. Was following up today at clinic. Source of Information: Patient, Old Records History of Present Illness Date Seen by Provider: July 31, 2020 Time Seen by Provider: 14:10 Initial Comments 65-year-old female presenting with shortness of breath and swelling to her legs. She was seen on July 25 for similar symptoms and diagnosed with new onset CHF. She was prescribed a short-term amount of diuretics and advised to follow-up in the clinic. When she returns to the clinic today she continues to be winded and out of breath with minimal exertion. She states the swelling is better than it was last week but is still present. She also notes that she has been having episodes of losing her balance and falling over the last month. She has had night sweats and felt like she was running a fever for the last 6 months. She has thick sputum that she has been coughing trying to get up but has not been able to actually cough it out. She gets it up to the point where she ends up swallowing it. She denies any actual chest pain but does have tightness in her chest. Breathing treatments do seem to help some with this. Timing/Duration: 1 Week (more than a week) Severity: Moderate Activities at Onset: Activity Modifying Factors: Worse With Activity; Improves With Albuterol Inhaler (some), Improves With Albuterol Nebulizer (some); Worse With Coughing Associated Symptoms: Anxiety, Cough, Edema, Fever (for 6 months intermittently), Wheezing Allergies and Home Medications Allergies Coded Allergies: mirtazapine (Verified Adverse Reaction, Unknown, horrible nightmares, 07/24/18) Home Medications Aspirin 81 Mg Tablet.dr, 81 MG PO DAILY, (Reported) Atorvastatin Calcium 40 Mg Tablet, 40 MG PO HS Prescribed by: MATEO CARY on 09/02/18 1233 Buprenorphine HCl 8 Mg Tab.subl, 8 MG SL TID, (Reported) Cetirizine HCl 10 Mg Tablet, 10 MG PO DAILY, (Reported) Clopidogrel Bisulfate 75 Mg Tablet, 75 MG PO DAILY Prescribed by: MAETO CARY on 09/02/18 1233 Duloxetine HCl 60 Mg Capsule.dr, 120 MG PO DAILY, (Reported) TAKE 2 (60MG) TABS Fluticasone/Salmeterol 1 Each Blst.w.dev, 1 EACH IH Q12H, (Reported) Furosemide 20 Mg Tablet, 40 MG PO DAILY Prescribed by: JUNIOR GARCIA on 07/25/20 1414 Ipratropium/Albuterol Sulfate 3 Ml Ampul.neb, 3 ML IH Q4H PRN for SHORTNESS OF BREATH, (Reported) Metoprolol Succinate 25 Mg Tab.er.24h, 12.5 MG PO DAILY Prescribed by: MATEO CARY on 09/02/18 1233 Nitroglycerin 0.4 Mg Tab.subl, 0.4 MG SL PRN PRN for CHEST PAIN, (Reported) Patient Home Medication List Home Medication List Reviewed: Yes Review of Systems Review of Systems Constitutional: No chills; fever (intermittent for over 6 months) EENTM: no symptoms reported Respiratory: see HPI Cardiovascular: edema Gastrointestinal: no symptoms reported Genitourinary: no symptoms reported Skin: lesions (multiple scrapes and abrasions from her pets, abrasions and contusions from frequent falls) Psychiatric/Neurological: Denies Headache; Weakness Hematologic/Lymphatic: Denies Blood Clots; Easy Bleeding (taking plavix), Easy Bruising (taking plavix) Past Mcpolkw-Fimloj-Yslrmm Hx Past Med/Social Hx: Reviewed Nursing Past Med/Soc Hx Patient Social History Alcohol Use: Denies Use Smoking Status: Current Everyday Smoker Type Used: Cigarettes 2nd Hand Smoke Exposure: No Recent Infectious Disease Expo: No Recent Hopitalizations: No Immunizations Up To Date Date of Pneumonia Vaccine: Dec 18, 2016 Date of Influenza Vaccine: Dec 18, 2018 Seasonal Allergies Seasonal Allergies: No Past Medical History Surgeries: Yes Coronary Stent Respiratory: Yes (O2 2L AT HS) COPD Cardiac: Yes Coronary Artery Disease, Heart Attack, High Cholesterol, Hypertension Neurological: Yes Headaches /Migraines Genitourinary: No Gastrointestinal: No Chronic Constipation, Irritable Bowel Musculoskeletal: Yes Fibromyalgia, Rheumatoid Arthritis HEENT: No Cancer: Yes Cervical Did You Recieve Any Treatments: Yes What Type of Treatment Did You: Surgical Intervention Psychosocial: Yes Depression Integumentary: No Eczema Blood Disorders: No Adverse Reaction/Blood Tranf: No Physical Exam Vital Signs Vital Signs - First Documented 07/31/20 14:21 Temp 36.9 Pulse 100 Resp 20 B/P (MAP) 115/84 (94) Pulse Ox 95 Capillary Refill : Less Than 3 Seconds Height, Weight, BMI Height: 4'9.00" Weight: 100lbs. 2.0oz. 45.506074cp; 28.00 BMI Method:Stated General Appearance: Chronically ill, Mild Distress (working hard to breath and answers questions with short 4-5 word sentences before out of breath) HEENT: PERRL/EOMI, Moist Mucous Membranes, Pharyngeal Erythema; No Photophobia, No Tonsillar Exudate, No Tonsillar Enlargement Neck: Full Range of Motion, Normal Inspection, Non Tender, Supple Respiratory: Chest Non Tender, Accessory Muscle Use, Decreased Breath Sounds, Wheezing (end expiratory) Cardiovascular: Regular Rate, Rhythm, Normal Peripheral Pulses Gastrointestinal: No Pulsatile Mass, Non Tender, Soft Rectal: Deferred Extremity: Normal Capillary Refill, Normal Range of Motion, No Calf Tenderness, Pedal Edema (1+ pitting edema bilaterally up to her knees) Neurologic/Psychiatric: Alert, Oriented x3 Skin: Erythema (some redness to legs and feet. Multiple abrasions and contusion to legs) Focused Exam Lactate Level 07/31/20 14:30: Lactic Acid Level Laboratory Tests Test 07/31/20 14:30 Progress/Results/Core Measures Results/Orders Lab Results Laboratory Tests Test 07/31/20 14:30 07/31/20 15:10 Range/Units White Blood Count 12.4 H 4.3-11.0 10^3/uL Red Blood Count 3.84 L 4.35-5.85 10^6/uL Hemoglobin 11.2 L 11.5-16.0 G/DL Hematocrit 34 L 35-52 % Mean Corpuscular Volume 90 80-99 FL Mean Corpuscular Hemoglobin 29 25-34 PG Mean Corpuscular Hemoglobin Concent 33 32-36 G/DL Red Cell Distribution Width 15.7 H 10.0-14.5 % Platelet Count 408 H 130-400 10^3/uL Mean Platelet Volume 8.7 7.4-10.4 FL Immature Granulocyte % (Auto) 0 % Neutrophils (%) (Auto) 64 42-75 % Lymphocytes (%) (Auto) 25 12-44 % Monocytes (%) (Auto) 10 0-12 % Eosinophils (%) (Auto) 1 0-10 % Basophils (%) (Auto) 0 0-10 % Neutrophils # (Auto) 7.9 H 1.8-7.8 X 10^3 Lymphocytes # (Auto) 3.1 1.0-4.0 X 10^3 Monocytes # (Auto) 1.2 H 0.0-1.0 X 10^3 Eosinophils # (Auto) 0.2 0.0-0.3 10^3/uL Basophils # (Auto) 0.0 0.0-0.1 10^3/uL Immature Granulocyte # (Auto) 0.1 0.0-0.1 10^3/uL Sodium Level 131 L 135-145 MMOL/L Potassium Level 3.5 L 3.6-5.0 MMOL/L Chloride Level 92 L 98-107 MMOL/L Carbon Dioxide Level 26 21-32 MMOL/L Anion Gap 13 5-14 MMOL/L Blood Urea Nitrogen 9 7-18 MG/DL Creatinine 0.78 0.60-1.30 MG/DL Estimat Glomerular Filtration Rate > 60 BUN/Creatinine Ratio 12 Glucose Level 108 H 70-105 MG/DL Calcium Level 8.4 L 8.5-10.1 MG/DL Corrected Calcium 8.9 8.5-10.1 MG/DL Magnesium Level 1.9 1.6-2.4 MG/DL Total Bilirubin 0.5 0.1-1.0 MG/DL Aspartate Amino Transf (AST/SGOT) 48 H 5-34 U/L Alanine Aminotransferase (ALT/SGPT) 38 0-55 U/L Alkaline Phosphatase 109 40-136 U/L Troponin I < 0.30 <0.30 NG/ML Pro-B-Type Natriuretic Peptide 2400.0 H <75.0 PG/ML Total Protein 7.0 6.4-8.2 GM/DL Albumin 3.4 3.2-4.5 GM/DL Lipase 21 8-78 U/L My Orders Orders - ELIZABETH SARGENT MD Cbc With Automated Diff (07/31/20 14:16) Magnesium (07/31/20 14:16) Chest 1 View Ap/Pa Only (07/31/20 14:16) Ekg Tracing (07/31/20 14:16) Comprehensive Metabolic Panel (07/31/20 14:16) Protime With Inr (07/31/20 14:16) Partial Thromboplastin Time (07/31/20 14:16) O2 (07/31/20 14:16) Monitor-Rhythm Ecg Trace Only (07/31/20 14:16) Ed Iv/Invasive Line Start (07/31/20 14:16) Lipase (07/31/20 14:16) Troponin I Fs (07/31/20 14:16) Probnp Fs (07/31/20 14:16) Blood Culture (07/31/20 15:20) Lactic Acid Analyzer (07/31/20 15:20) Vital Signs/I&O 07/31/20 14:21 Temp 36.9 Pulse 100 Resp 20 B/P (MAP) 115/84 (94) Pulse Ox 95 Blood Pressure Mean: 94 Progress Progress Note #1: Progress Note Check labs, ECG and Chest xray to look for changes from July 25. With her complaint of fever for over 6 months and having increased cough and shortness of breath with sore throat and hoarseness will order blood cultures and lactic acid. Will see if she has an electrolyte abnormality helping to contribute to her frequent falling. Differential diagnosis includes acute coronary syndrome, myocardial infarction, congestive heart failure, worsening COPD, renal failure, hepatic failure, electrolyte abnormality, thyroid abnormality Progress Note #2: Time: 15:21 Progress Note CXR does not show infiltrate. She has COPD changes and the central pulmonary vascular congestion has improved from July 25 CXR. ECG does not show ST elevation. Oxygen saturation hovers between 88-92% while speaking with the patient. With rest and not exerting herself to talk she does come up to 94-95%. WBC count improved to 12.4 from the 14 on July 25. Chemistry without acute significant abnormality. Troponin negative at <0.3. proBNP has gone up from 1,586 to 2,400. With her having new onset heart failure symptoms and elevated proBNP with edema, as well as exacerbation of her COPD and increased dyspnea will check with Dr. Luu, fabrication manager doctor for [facility] about admit since she was still having problems despite trial of diuretic over the last week. Initial ECG Impression Date: July 31, 2020 Initial ECG Impression Time: 14:34 Initial ECG Rate: 92 Initial ECG Rhythm: Normal Sinus Comment Normal sinus rhythm with a heart rate of 92 bpm. Left axis deviation. SC interval 120 ms. QT interval 373 ms with a QTc interval 462 ms. There is no acute ST elevation. Appears similar to prior tracings in the system. Diagnostic Imaging Diagonstic Imaging: Xray Plain Films/CT/US/NM/MRI: chest Comments [facility]. [place], [place] NAME: JEY BURCIAGA [facility] REC#: [id number] PT STATUS: REG ER : 1955 PHYSICIAN: ELIZABETH SARGENT MD ADMIT DATE: 07/31/20/ER FS Draft Date of Exam:07/31/20 CHEST 1 VIEW AP/PA ONLY INDICATION: Wheezing. Shortness of breath. COMPARISON: 07/25/2020. FINDINGS: There has been clearing of pulmonary venous congestive changes with clearing of interstitial infiltrates. Heart is upper limits of normal in size. No pneumothorax or pleural effusions. No bony abnormalities. There is mild hyperaeration of the lungs. IMPRESSION: 1. Mild chronic obstructive pulmonary disease. 2. Clearing of pulmonary venous congestive changes since previous exam. Dictated on workstation # [id number] Dict: 07/31/20 1454 Trans: 07/31/20 1456 CV [id number] Interpreted by: KARL CARTER MD Electronically signed by: Reviewed: Reviewed by Me Departure Communication (Admissions) Time/Spoke to Admitting Phy: 16:[address] Luu see on-call provider for [facility] about admission. With her increased shortness of breath and winded with minimal exertion part of the sounds like a COPD exacerbation. We will give a dose of steroids here and continue with respiratory protocol. Consult Dr. Yañez from cardiology about fluid buildup as he had just seen patient had an echocardiogram approximately a month ago. Time/Spoke to Consulting Phy: 16:[address] Madrid for cardiology about the patient. As she was being admitted for COPD exacerbation and dyspnea he would consult about her CHF symptoms. He requested Lasix 40 mg twice daily and potassium 20 mEq twice daily. Impression Primary Impression: COPD with exacerbation Additional Impressions: Congestive heart failure Qualified Codes: I50.9 - Heart failure, unspecified Dyspnea Qualified Codes: R06.02 - Shortness of breath Disposition: 30 STILL A PATIENT Condition: Stable Admissions Decision to Admit Reason: Admit from ER (General) Decision to Admit/Date: July 31, 2020 Time/Decision to Admit Time: 16:19 Departure-Patient Inst. Referrals: ELIEZER EVANS APRN (PCP) Primary Care Physician [facility] (Family) Primary Care Physician ELIZABETH SARGENT MD July 31, 2020 14:39
[2020-07-31 14:46] LABS: BASOPHILS % (AUTO) 0 % (0-10); EOSINOPHILS % (AUTO) 1 % (0-10); HEMATOCRIT 34 % (35-52); HEMOGLOBIN 11.2 G/DL (11.5-16.0); LYMPHOCYTES % (AUTO) 25 % (12-44); MEAN CORPUSCULAR HEMOGLOBIN 29 PG (25-34); MEAN CORPUSCULAR HGB CONC 33 G/DL (32-36); MEAN CORPUSCULAR VOLUME 90 FL (80-99); MEAN PLATELET VOLUME 8.7 FL (7.4-10.4); MONOCYTES % (AUTO) 10 % (0-12); NEUTROPHILS % (AUTO) 64 % (42-75); PLATELET COUNT 408 10^3/uL (130-400); WHITE BLOOD COUNT 12.4 10^3/uL (4.3-11.0)
[2020-07-31 14:47] LABS: EOSINOPHILS # (AUTO) 0.2 10^3/uL (0.0-0.3); LYMPHOCYTES # (AUTO) 3.1 X 10^3 (1.0-4.0); MONOCYTES # (AUTO) 1.2 X 10^3 (0.0-1.0); NEUTROPHILS # (AUTO) 7.9 X 10^3 (1.8-7.8)
--- NOTE | 2020-07-31 14:56 | Diagnostic Imaging Report ---
INDICATION: Wheezing. Shortness of breath. COMPARISON: 07/25/2020. FINDINGS: There has been clearing of pulmonary venous congestive changes with clearing of interstitial infiltrates. Heart is upper limits of normal in size. No pneumothorax or pleural effusions. No bony abnormalities. There is mild hyperaeration of the lungs. IMPRESSION: 1. Mild chronic obstructive pulmonary disease. 2. Clearing of pulmonary venous congestive changes since previous exam. Dictated by: Dictated on workstation # [id number]
[2020-07-31 15:02] LABS: BUN/CREATININE RATIO 12; CALCIUM 8.4 MG/DL (8.5-10.1); CARBON DIOXIDE 26 MMOL/L (21-32); CHLORIDE 92 MMOL/L (98-107); CREATININE SERUM 0.78 MG/DL (0.60-1.30); GFR ESTIMATED > 60; GLUCOSE 108 MG/DL (70-105); POTASSIUM 3.5 MMOL/L (3.6-5.0); SODIUM 131 MMOL/L (135-145)
[2020-07-31 15:03] LABS: ALANINE AMINOTRANSFERASE 38 U/L (0-55); ALBUMIN 3.4 GM/DL (3.2-4.5); ALKALINE PHOSPHATASE 109 U/L (40-136); BILIRUBIN,TOTAL 0.5 MG/DL (0.1-1.0); MAGNESIUM 1.9 MG/DL (1.6-2.4)
[2020-07-31 15:12] LABS: LIPASE 21 U/L (8-78)
[2020-07-31 15:32] LABS: PROTHROMBIN TIME PATIENT 13.8 SEC (12.2-14.7)
[2020-07-31] MEDS ORDERED: FUROSEMIDE 40 MG/4 ML INJ (LASIX) IVP STA (16:17)
[2020-07-31] MEDS ORDERED: methylPREDNISolone 40 MG/ML (Solu-MEDROL) VIAL IV STA (16:17)
[2020-07-31] MEDS ORDERED: KCL 20 MEQ TAB (K-DUR) PO STA (16:27)
[2020-07-31] MEDS ORDERED: NS IV 1000 ML 1,000 ML IV SCH (16:30)
[2020-07-31 17:14] LABS: BILIRUBIN,URINE NEGATIVE (NEGATIVE); CLARITY,URINE CLEAR; COLOR,URINE YELLOW; GLUCOSE, URINE (UA) NEGATIVE (NEGATIVE); KETONES,URINE NEGATIVE (NEGATIVE); LEUKOCYTE ESTERASE ,URINE NEGATIVE (NEGATIVE); NITRITE,URINE NEGATIVE (NEGATIVE); PROTEIN,URINE NEGATIVE (NEGATIVE); WBC,URINE RARE /HPF
[2020-07-31 17:15] LABS: AMPHETAMINE SCREEN, URINE NEGATIVE (NEGATIVE); BACTERIA,URINE NEGATIVE /HPF; BARBITURATE SCREEN URINE NEGATIVE (NEGATIVE); BENZODIAZEPINES SCREEN URINE NEGATIVE (NEGATIVE); CANNABINOID SCREEN, URINE NEGATIVE (NEGATIVE); COCAINE SCREEN URINE NEGATIVE (NEGATIVE); METHADONE STAT NEGATIVE (NEGATIVE); METHAMPHETAMINE SCREEN URINE S NEGATIVE (NEGATIVE); OPIATE SCREEN URINE NEGATIVE (NEGATIVE); OXYCODONE STAT NEGATIVE (NEGATIVE); PROPOXYPHENE STAT NEGATIVE (NEGATIVE); SQUAMOUS EPITHELIAL CELL,UR RARE /HPF; TRICYCLIC ANTIDEPRESSANTS SCRE NEGATIVE (NEGATIVE)
[2020-07-31 17:25] VITALS: BP 116/72
[2020-07-31] MEDS ORDERED: diphenhydrAMINE 25 MG TAB (BENADRYL) PO PRN (20:45)
[2020-07-31] MEDS ORDERED: ALPRAZolam 0.25 MG (XANAX) TAB PO PRN (20:45)
[2020-07-31] MEDS ORDERED: DOCUSATE SODIUM 100 MG (COLACE) CAP PO PRN (20:45)
[2020-07-31] MEDS ORDERED: ONDANSETRON 4 MG/2 ML (SDV) Z0FRAN IVP PRN (20:45)
[2020-07-31] MEDS ORDERED: LOPERAMIDE 2 MG (IMODIUM) TABLET PO PRN (20:45)
[2020-07-31] MEDS ORDERED: ACETAMINOPHEN 500 MG TAB (TYLENOL) PO PRN (20:45)
[2020-07-31 20:50] VITALS: BP 133/61
[2020-07-31] MEDS ORDERED: RT-ALBUTEROL/IPRATROPIUM 3 ML (DUONEB) VIAL INH PRN (21:00)
[2020-07-31] MEDS ORDERED: morphine INJ 4 MG/ML 1 ML (VIAL/SYRINGE) IVP PRN (21:30)
[2020-07-31] MEDS: RT-ALBUTEROL/IPRATROPIUM 3 ML (DUONEB) VIAL INH SCH ×2 (21:52→22:00)
[2020-07-31] MEDS: NS IV 1000 ML 1,000 ML IV SCH (22:06)
[2020-07-31] MEDS: SENNA W/DOCUSATE (SENOKOT S) TABLET PO SCH (22:06)
[2020-07-31] MEDS: MONTELUKAST 10 MG (SINGULAIR) TAB PO SCH (22:06)
[2020-07-31] MEDS: ENOXAPARIN 40 MG/0.4 ML (LOVENOX) SYR SC SCH (22:06)
[2020-07-31] MEDS: methylPREDNISolone 40 MG/ML (Solu-MEDROL) VIAL IV SCH (23:41)
[2020-07-31] MEDS: HYDROcodone/APAP 5 MG/325 MG (LORTAB) TAB PO PRN (23:45)
[2020-08-01 00:55] VITALS: BP 111/70
[2020-08-01] MEDS: RT-ALBUTEROL/IPRATROPIUM 3 ML (DUONEB) VIAL INH SCH ×11 (02:21→21:59)
[2020-08-01 04:32] VITALS: BP 118/64
[2020-08-01] MEDS: HYDROcodone/APAP 5 MG/325 MG (LORTAB) TAB PO PRN ×4 (05:24→22:09)
[2020-08-01] MEDS: methylPREDNISolone 40 MG/ML (Solu-MEDROL) VIAL IV SCH ×4 (05:24→23:28)
[2020-08-01 06:13] LABS: BASOPHILS % (AUTO) 0 % (0-10); EOSINOPHILS % (AUTO) 0 % (0-10); HEMATOCRIT 31 % (35-52); HEMOGLOBIN 10.2 g/dL (11.5-16.0); LYMPHOCYTES # (AUTO) 0.7 10^3/uL (1.0-4.0); LYMPHOCYTES % (AUTO) 14 % (12-44); MEAN CORPUSCULAR HEMOGLOBIN 29 pg (25-34); MEAN CORPUSCULAR HGB CONC 33 g/dL (32-36); MEAN CORPUSCULAR VOLUME 89 fL (80-99); MEAN PLATELET VOLUME 8.9 fL (9.0-12.2); MONOCYTES # (AUTO) 0.1 10^3/uL (0.0-1.0); MONOCYTES % (AUTO) 2 % (0-12); NEUTROPHILS # (AUTO) 4.1 10^3/uL (1.8-7.8); NEUTROPHILS % (AUTO) 83 % (42-75); PLATELET COUNT 337 10^3/uL (130-400); WHITE BLOOD COUNT 4.9 10^3/uL (4.3-11.0)
[2020-08-01 06:22] LABS: ALBUMIN 3.1 GM/DL (3.2-4.5); CHLORIDE 98 MMOL/L (98-107); POTASSIUM 3.7 MMOL/L (3.6-5.0); SODIUM 133 MMOL/L (135-145)
[2020-08-01 06:23] LABS: CALCIUM 8.5 MG/DL (8.5-10.1)
[2020-08-01 06:24] LABS: GLUCOSE 156 MG/DL (70-105)
[2020-08-01 06:25] LABS: TOTAL PROTEIN 6.4 GM/DL (6.4-8.2)
[2020-08-01 06:26] LABS: CARBON DIOXIDE 27 MMOL/L (21-32)
[2020-08-01 06:27] LABS: BILIRUBIN,TOTAL 0.4 MG/DL (0.1-1.0)
[2020-08-01 06:28] LABS: ALKALINE PHOSPHATASE 88 U/L (40-136); CREATININE SERUM 0.76 MG/DL (0.60-1.30); GFR ESTIMATED > 60
[2020-08-01 06:29] LABS: BUN/CREATININE RATIO 17
[2020-08-01 06:31] LABS: ALANINE AMINOTRANSFERASE 35 U/L (0-55)
[2020-08-01] MEDS: FUROSEMIDE 40 MG/4 ML INJ (LASIX) IVP SCH ×2 (06:35→17:40)
[2020-08-01] MEDS: NS IV 1000 ML 1,000 ML IV SCH ×2 (06:38→20:38)
--- NOTE | 2020-08-01 07:05 | History & Physical-Hospitalist ---
History of Present Illness HPI/Chief Complaint CC: SOB HPI: This is a 65yoWF clinic pt of Gabrielle Maza at [facility] who presented from [place] ER due to SOB from exacerbation of COPD and CHF. Lasix has really helped the lower extremity edema. Home meds were restarted and cardiology has been consulted. We will go ahead and get a CT scan of the brain due to her suspicion of a TIA because of her off balance and left side drooling at times but those are not present currently. Source: patient, RN/MD, old records Exam Limitations: no limitations Date Seen 08/01/20 Time Seen by a Provider: 10:00 Attending Physician Ana M Luu DO [facility] Referring Physician Date of Admission July 31, 2020 at 19:09 Home Medications & Allergies Home Medications Reviewed patient Home Medication Reconciliation performed by pharmacy medication reconciliations durability technician and/or nursing. Patients Allergies have been reviewed. Allergies Allergies Coded Allergies mirtazapine (Verified Adverse Reaction, Unknown, horrible nightmares, 07/24/18) Patient Social History Marrital Status: single Employed/Student: unemployed Tobacco Use?: Yes Tobacco type used: Cigarettes Smoking Status: Current Everyday Smoker Smokeless Tobacco Frequency: Current Everyday User Use of E-Cig and/or Vaping dev: No Substance use?: No Alcohol Use?: No Pt stated abuse/neglect: No Immunizations Up To Date Influenza Vaccine Up-to-Date: Yes; Up-to-Date Date of Pneumonia Vaccine: Dec 18, 2016 Current Status status: No Do you have an Advance Directi: No Communicates: Verbally Primary Language: Syriac Implanted or Applied Medical D: Stents Past Medical History COPD HTN CAD previous STEMI with PCI Family Medical History Family Hx: NC Review of Systems Constitutional: see HPI Respiratory: dyspnea on exertion, short of breath, wheezing Physical Exam Physical Exam Vital Signs Vital Signs - First Documented 07/31/20 07/31/20 14:21 17:25 Temp 36.9 Pulse 100 Resp 20 B/P (MAP) 115/84 (94) Pulse Ox 95 O2 Delivery Nasal Cannula O2 Flow Rate 2.50 Capillary Refill : Less Than 3 Seconds Height, Weight, BMI Height: 4'9.00" Weight: 100lbs. 2.0oz. 45.840080xw; 30.08 BMI Method:Stated General Appearance: No Apparent Distress, Chronically ill Eyes: Right Eye Normal Inspection, Right Eye PERRL HEENT: PERRL/EOMI, Normal ENT Inspection, Pharynx Normal, Moist Mucous Membranes Neck: Full Range of Motion, Normal Inspection, Non Tender Respiratory: Chest Non Tender, No Respiratory Distress, Accessory Muscle Use, Decreased Breath Sounds, Rales, Wheezing Cardiovascular: Regular Rate, Rhythm, No Edema, No Gallop, No JVD, No Murmur, Normal Peripheral Pulses Gastrointestinal: Normal Bowel Sounds, No Organomegaly, No Pulsatile Mass, Non Tender, Soft Back: Normal Inspection, No CVA Tenderness, No Vertebral Tenderness Extremity: Normal Capillary Refill, Normal Inspection, Normal Range of Motion, Non Tender, No Calf Tenderness, No Pedal Edema Neurologic/Psychiatric: Alert, Oriented x3, No Motor/Sensory Deficits, Normal Mood/Affect Skin: Normal Color, Warm/Dry Lymphatic: No Adenopathy Results Results/Procedures Labs Laboratory Tests 07/31/20 14:30 08/01/20 05:19 08/02/20 04:45 Patient resulted labs reviewed. Assessment/Plan Admission Diagnosis Assessment: Dyspnea AECOPD Smoker Volume overload Fibromyalgia Plan: IV Lasix IV steroids Nebs O2 Admission Status: Observation Diagnosis/Problems Diagnosis/Problems (1) COPD with exacerbation Status: Acute (2) Dyspnea Status: Acute Qualifiers: Dyspnea type: shortness of breath Qualified Codes: R06.02 - Shortness of breath (3) Congestive heart failure Status: Acute Qualifiers: Heart failure type: unspecified Heart failure chronicity: unspecified Qualified Codes: I50.9 - Heart failure, unspecified (4) Pulmonary edema with congestive heart failure Status: Acute (5) COPD (chronic obstructive pulmonary disease) Status: Acute (6) CAD (coronary artery disease) ANA M LUU DO August 01, 2020 07:05
--- NOTE | 2020-08-01 07:59 | Consultation-Cardiology ---
HPI-Cardiology Cardiology Consultation: Date of Consultation 08/01/20 Time Seen by a Provider: 09:40 Date of Admission 07-31-20 Attending Physician Ana M Luu DO Admitting Physician [place] Consulting Physician Fela Madrid MD HPI: Chief Complaint: SOB LE swelling Ms. Perez is a 65 yr old female admitted to [facility] from the ED with increasing SOB and LE swelling. She reports chronic SOB which has progressively been worse over the last 2 weeks. She has been following with her PCP and recently completed a round of steroids a few days ago. She reports increasing bilat LE swelling over the course of the last month. She denies any c/o CP, palpitations, syncope or near syncope. She reports she has had poor balance and several falls over the last several months. She denies any n/v/d. She reports chronic low grade fever at which has been present for over 2 yrs. She reports her SOB has improved since yesterday. She denies missing any medications. She continues to smoke 1 PPD of cigs. Review of Systems-Cardiology Review of Systems Constitutional: No chills; fever, malaise Eyes: No vision change Ears/Nose/Throat: No epistaxis, No recent hearing loss, No ulcerations Respiratory: As described under HPI Cardiovascular: As described under HPI Gastrointestinal: No constipation, No diarrhea, No nausea, No vomiting Genitourinary: No dysuria, No hematuria Skin: other (multiple excoriations on her legs which are scabbing; multiple bruises, excoriations, to her arms and hands which she reports is from her dog and dry skin) Psychiatric/Neurological: anxiety; No depression, No seizure, No focal weakness, No syncope Hematologic: No bleeding abnormalities [id number]-Mlcyhm Hx Patient Social History Smoking Status: Current Everyday Smoker 2nd Hand Smoke Exposure: No Have you traveled recently?: No Alcohol Use?: No Pt feels they are or have been: No Tobacco type used: Cigarettes Immunizations Up To Date Date of Pneumonia Vaccine: Dec 18, 2016 Date of Influenza Vaccine: Dec 16, 2019 Past Medical History PMH As described under Assessment. Family Medical History Family Medical History: She does not report any family h/o CAD Allergies and Home Medications Allergies Coded Allergies: mirtazapine (Verified Adverse Reaction, Unknown, horrible nightmares, 07/24/18) Home Medications Albuterol Sulfate 1 Puff Puff, 2 PUFF IH Q4H PRN for SHORTNESS OF BREATH, (Reported) Last Action: Held Aspirin 81 Mg Tab.chew, 81 MG PO HS, (Reported) Last Action: Continued Atorvastatin Calcium 40 Mg Tablet, 40 MG PO HS, (Reported) Last Action: Continued Buprenorphine HCl 8 Mg Tab.subl, 8 MG SL TID, (Reported) Last Action: Converted Cetirizine HCl 10 Mg Tablet, 10 MG PO HS, (Reported) Last Action: Converted Clopidogrel Bisulfate 75 Mg Tablet, 75 MG PO HS, (Reported) Last Action: Continued Duloxetine HCl 60 Mg Capsule.dr, 120 MG PO HS, (Reported) TAKE 2 (60MG) TABS Last Action: Converted Fluticasone/Salmeterol 1 Each Blst.w.dev, 1 EACH IH BID, (Reported) Last Action: Converted Ipratropium/Albuterol Sulfate 3 Ml Ampul.neb, 3 ML IH Q4H PRN for SHORTNESS OF BREATH, (Reported) Last Action: Held Metoprolol Succinate 25 Mg Tab.er.24h, 12.5 MG PO HS, (Reported) Last Action: Continued Nitroglycerin 0.4 Mg Tab.subl, 0.4 MG SL PRN PRN for CHEST PAIN, (Reported) Last Action: Continued Omeprazole 40 Mg Capsule.dr, 40 MG PO HS, (Reported) Last Action: Converted Physical Exam-Cardiology Physical Exam Vital Signs/I&O 08/01/20 08/02/20 08/02/20 08/02/20 22:00 00:02 01:00 03:00 Temp 36.4 Pulse 101 90 Resp 18 B/P (MAP) 117/70 (86) Pulse Ox 93 96 93 O2 Delivery Nasal Cannula Nasal Cannula Nasal Cannula O2 Flow Rate 2.00 2.50 2.00 08/02/20 08/02/20 08/02/20 08/02/20 04:45 06:29 06:57 08:00 Temp 36.2 36.0 Pulse 94 89 115 Resp 18 18 B/P (MAP) 146/85 (105) 147/86 (106) Pulse Ox 95 95 91 O2 Delivery Nasal Cannula Nasal Cannula Nasal Cannula O2 Flow Rate 2.50 2.00 2.50 08/02/20 00:00 Intake Total 3820 ml Output Total 1950 ml Balance 1870 ml Capillary Refill : Less Than 3 Seconds Constitutional: AAO x 3, well-developed, well-nourished HEENT: PERRL, hearing is well preserved, oral hygience is good Neck: No carotid bruit; carotid pulses are 2 + bilaterally Respiratory: chest expansion is symmetric, chest is bilaterally symmetric, rhonchi (scattered), other (prolonged exp phase) Cardiovascular: regular rate-rhythm; No JVD; S1 and S2 Gastrointestinal: No tender; soft, round, audible bowel sounds Extremities: significant edema (bilat LE swelling 2 (+)) Neurologic/Psychiatric: grossly intact (moves all extremities) Data Review Labs Laboratory Tests 08/02/20 04:45: White Blood Count 18.7H, Red Blood Count 3.35L, Hemoglobin 9.7L, Hematocrit 30L, Mean Corpuscular Volume 90, Mean Corpuscular Hemoglobin 29, Mean Corpuscular Hemoglobin Concent 32, Red Cell Distribution Width 15.7H, Platelet Count 339, Mean Platelet Volume 8.7L, Immature Granulocyte % (Auto) 1, Neutrophils (%) (Auto) 89H, Lymphocytes (%) (Auto) 7L, Monocytes (%) (Auto) 4, Eosinophils (%) (Auto) 0, Basophils (%) (Auto) 0, Neutrophils # (Auto) 16.7H, Lymphocytes # (Auto) 1.3, Monocytes # (Auto) 0.7, Eosinophils # (Auto) 0.0, Basophils # (Auto) 0.0, Immature Granulocyte # (Auto) 0.1, Neutrophils % (Manual) 92, Lymphocytes % (Manual) 3, Monocytes % (Manual) 4, Band Neutrophils 1, Hypochromasia SLIGHT, Blood Morphology Comment NORMAL, Sodium Level 135, Potassium Level 4.1, Chloride Level 100, Carbon Dioxide Level 25, Anion Gap 10, Blood Urea Nitrogen 18, Cr eatinine 0.78, Estimat Glomerular Filtration Rate > 60, BUN/Creatinine Ratio 23, Glucose Level 141H, Calcium Level 8.7, Corrected Calcium 9.5, Total Bilirubin 0.3, Aspartate Amino Transf (AST/SGOT) 23, Alanine Aminotransferase (ALT/SGPT) 29, Alkaline Phosphatase 82, Total Protein 6.1L, Albumin 3.0L Microbiology 07/31/20 Blood Culture - Preliminary, Resulted No growth Radiology NAME: JEY PEREZ [facility] REC#: [id number] PT STATUS: REG ER : 1955 PHYSICIAN: ELIZABETH SARGENT MD ADMIT DATE: 07/31/20/ER FS Signed Date of Exam:07/31/20 CHEST 1 VIEW AP/PA ONLY INDICATION: Wheezing. Shortness of breath. COMPARISON: 07/25/2020. FINDINGS: There has been clearing of pulmonary venous congestive changes with clearing of interstitial infiltrates. Heart is upper limits of normal in size. No pneumothorax or pleural effusions. No bony abnormalities. There is mild hyperaeration of the lungs. IMPRESSION: 1. Mild chronic obstructive pulmonary disease. 2. Clearing of pulmonary venous congestive changes since previous exam. Dictated by: Dictated on workstation # [id number] Dict: 07/31/20 1454 Trans: 07/31/204 CVB [id number] Interpreted by: KARL CARTER MD Electronically signed by: KARL CARTER MD 07/31/204 ECG Impression ECG Initial ECG Rhythm: Normal Sinus A/P-Cardiology Assessment/Admission Diagnosis Progressive dyspnea likely multifactorial, acute on chronic exacerbation of COPD, acute CHF Chronic chest discomfort that is likely musculoskeletal CAD - Ac inf-post STEMI on 08/31/18 treated with PCI. - Last cath on 10/19/19: mild CAD, patent stents in mid LCX that are known to be overlapping Alpine Xience 2.90x746 and 2.25x12 stens, LVEF 65%, normal LVEDP Echo of 09-01-18: LVEF 55-60%, mild MR, PASP 45 mmHg Mod pulm htn, etiology undetermined, probably related to chronic pulm dz H/O chronic tobacco use - 1 PPD Chronic pain and anxiety H/o COPD No evidence of significant obstructive PAD of the lower limbs per segmental pressures of May 2017 Fibromyalgia Depression Carotid arterial disease: 60-79% R ICA stenosis and less than 40% L ICA stenosis per u/s of July 2017. Last carotid u/s of 03/22/19 showed less than 40% bilateral stenoses Basal cell carcinoma of the L nostril has been diagnosed and managed by Dr Wong. Ms. Perez states he has deliberately decided against surgery Discussion and Recomendations Acute CHF - treat with diuretics Acute on chronic exacerbation of COPD - management per medical/pulmonary services Echocardiogram today Continue IV diuretics Continue /Plavix Monitor lab closely Replace electrolytes as indicated Further recs will be based on her hospital course We would like to thank medical services for this consult MATEO CARY August 01, 2020 07:59
[2020-08-01 08:00] VITALS: BP 152/84
[2020-08-01] MEDS: SENNA W/DOCUSATE (SENOKOT S) TABLET PO SCH ×2 (08:07→20:47)
[2020-08-01] MEDS: KCL 20 MEQ TAB (K-DUR) PO SCH ×2 (08:07→17:41)
[2020-08-01] MEDS ORDERED: LORATADINE (CLARITIN) 10 MG TAB PO SCH (09:00)
[2020-08-01] MEDS ORDERED: FLUT1DIS26 IH (09:41)
[2020-08-01] MEDS ORDERED: MTP25TSR PO (09:41)
[2020-08-01] MEDS ORDERED: BUPR8TAB SL (09:41)
[2020-08-01] MEDS ORDERED: CLOP75TA28 PO (09:41)
[2020-08-01] MEDS ORDERED: ATOR40TA70 PO (09:41)
[2020-08-01] MEDS ORDERED: ASPI-999 PO (09:41)
[2020-08-01] MEDS ORDERED: OMEP40CA27 PO (09:41)
[2020-08-01] MEDS ORDERED: RT-ALBUINH IH (09:48)
[2020-08-01] MEDS ORDERED: CLOPIDOGREL 75 MG (PLAVIX) TABLET PO ONE (10:30)
[2020-08-01] MEDS ORDERED: LORATADINE (CLARITIN) 10 MG TAB PO ONE (10:30)
[2020-08-01] MEDS ORDERED: NITROGLYCERIN 0.4 MG SL TABS BTL 25'S SL PRN (10:30)
[2020-08-01] MEDS ORDERED: ASPIRIN 81 MG CHEW (CHILDREN'S ASA) PO ONE (10:30)
[2020-08-01 12:00] VITALS: BP 158/78
--- NOTE | 2020-08-01 12:13 | Diagnostic Imaging Report ---
PROCEDURE: CT head without contrast. TECHNIQUE: Multiple contiguous axial images were obtained through the brain without the use of intravenous contrast. Auto Exposure Controls were utilized during the CT exam to meet ALARA standards for radiation dose reduction. INDICATION: TIAs. No relevant comparison. FINDINGS: There is no hemorrhage, hydrocephalus, edema, mass or mass effect. No sulcal effacement. The cortical chan-white matter differentiations maintained. Cerebral cortical volume appeared unremarkable. There are no abnormal extra-axial fluid collections. The basilar cisterns are patent. No mass or mass effect. The orbits, sinuses and calvarium all appeared nonacute. IMPRESSION: Unremarkable CT head. Dictated by: Dictated on workstation # [id number]
[2020-08-01] MEDS ORDERED: NON-FORMULARY MEDICATION 1 EA EA (Buprenorphine HCl 8 MG) SL SCH (13:00)
[2020-08-01 16:06] VITALS: BP 130/71
--- NOTE | 2020-08-01 17:20 | Consultation-Cardiology ---
HPI-Cardiology Cardiology Consultation: Date of Consultation 08/01/20 Time Seen by a Provider: 16:30 Date of Admission Attending Physician Ana M Luu DO Admitting Physician [place] Consulting Physician SANDRINE KHANNA MD, FACP, FACC HPI: Chief Complaint: SOB LE swelling Ms. Perez is a 65 yr old female admitted to [facility] from the ED with increasing SOB and LE swelling. She reports chronic SOB which has progressively been worse over the last 2 weeks. She has been following with her PCP and recently completed a round of steroids a few days ago. She reports increasing bilat LE swelling over the course of the last month. She denies any c/o CP, palpitations, syncope or near syncope. She reports she has had poor balance and several falls over the last several months. She denies any n/v/d. She reports chronic low grade fever at which has been present for over 2 yrs. She reports her SOB has improved since yesterday. She denies missing any medications. She continues to smoke 1 PPD of cigs. Review of Systems-Cardiology Review of Systems Constitutional: No chills; fever, malaise Eyes: No vision change Ears/Nose/Throat: No epistaxis, No recent hearing loss, No ulcerations Respiratory: As described under HPI Cardiovascular: As described under HPI Gastrointestinal: No constipation, No diarrhea, No nausea, No vomiting Genitourinary: No dysuria, No hematuria Skin: other (multiple excoriations on her legs which are scabbing; multiple bruises, excoriations, to her arms and hands which she reports is from her dog and dry skin) Psychiatric/Neurological: anxiety; No depression, No seizure, No focal weakness, No syncope Hematologic: No bleeding abnormalities [id number]-Mvftxl Hx Patient Social History Smoking Status: Current Everyday Smoker 2nd Hand Smoke Exposure: No Have you traveled recently?: No Alcohol Use?: No Pt feels they are or have been: No Tobacco type used: Cigarettes Immunizations Up To Date Date of Pneumonia Vaccine: Dec 18, 2016 Date of Influenza Vaccine: Dec 16, 2019 Past Medical History PMH As described under Assessment. Family Medical History Family Medical History: She does not report any family h/o CAD Allergies and Home Medications Allergies Coded Allergies: mirtazapine (Verified Adverse Reaction, Unknown, horrible nightmares, 07/24/18) Home Medications Albuterol Sulfate 1 Puff Puff, 2 PUFF IH Q4H PRN for SHORTNESS OF BREATH, (Re ported) Last Action: Held Aspirin 81 Mg Tab.chew, 81 MG PO HS, (Reported) Last Action: Continued Atorvastatin Calcium 40 Mg Tablet, 40 MG PO HS, (Reported) Last Action: Continued Buprenorphine HCl 8 Mg Tab.subl, 8 MG SL TID, (Reported) Last Action: Converted Cetirizine HCl 10 Mg Tablet, 10 MG PO HS, (Reported) Last Action: Converted Clopidogrel Bisulfate 75 Mg Tablet, 75 MG PO HS, (Reported) Last Action: Continued Duloxetine HCl 60 Mg Capsule.dr, 120 MG PO HS, (Reported) TAKE 2 (60MG) TABS Last Action: Converted Fluticasone/Salmeterol 1 Each Blst.w.dev, 1 EACH IH BID, (Reported) Last Action: Converted Ipratropium/Albuterol Sulfate 3 Ml Ampul.neb, 3 ML IH Q4H PRN for SHORTNESS OF BREATH, (Reported) Last Action: Held Metoprolol Succinate 25 Mg Tab.er.24h, 12.5 MG PO HS, (Reported) Last Action: Continued Nitroglycerin 0.4 Mg Tab.subl, 0.4 MG SL PRN PRN for CHEST PAIN, (Reported) Last Action: Continued Omeprazole 40 Mg Capsule.dr, 40 MG PO HS, (Reported) Last Action: Converted Patient Home Medication List Home Medication List Reviewed: Yes Physical Exam-Cardiology Physical Exam Vital Signs/I&O 08/01/20 08/01/20 08/01/20 08/01/20 07:00 07:51 08:00 08:00 Temp 36.0 Pulse 75 102 Resp 18 B/P (MAP) 152/84 (106) Pulse Ox 97 97 O2 Delivery Nasal Cannula Room Air Nasal Cannula O2 Flow Rate 2.00 2.50 08/01/20 08/01/20 08/01/20 08/01/20 10:36 12:00 12:48 14:06 Temp 36.0 Pulse 116 102 Resp 18 B/P (MAP) 158/78 (104) Pulse Ox 94 95 94 O2 Delivery Nasal Cannula Nasal Cannula Room Air O2 Flow Rate 2.00 2.50 08/01/20 16:06 Temp 36.7 Pulse 113 Resp 20 B/P (MAP) 130/71 (90) Pulse Ox 93 O2 Delivery Nasal Cannula O2 Flow Rate 2.50 08/01/20 00:00 Intake Total 0 ml Output Total 0 ml Balance 0 ml Capillary Refill : Less Than 3 Seconds Constitutional: AAO x 3, well-developed, well-nourished HEENT: PERRL, hearing is well preserved, oral hygience is good Neck: No carotid bruit; carotid pulses are 2 + bilaterally Respiratory: chest expansion is symmetric, chest is bilaterally symmetric, rhonchi (scattered), other (prolonged exp phase) Cardiovascular: regular rate-rhythm; No JVD; S1 and S2 Gastrointestinal: No tender; soft, round, audible bowel sounds Extremities: significant edema (bilat LE swelling 2 (+)) Neurologic/Psychiatric: grossly intact (moves all extremities) Data Review Labs Laboratory Tests 08/01/20 05:19: White Blood Count 4.9, Red Blood Count 3.52L, Hemoglobin 10.2L, Hematocrit 31L, Mean Corpuscular Volume 89, Mean Corpuscular Hemoglobin 29, Mean Corpuscular Hemoglobin Concent 33, Red Cell Distribution Width 15.5H, Platelet Count 337, Mean Platelet Volume 8.9L, Immature Granulocyte % (Auto) 1, Neutrophils (%) (Auto) 83H, Lymphocytes (%) (Auto) 14, Monocytes (%) (Auto) 2, Eosinophils (%) (Auto) 0, Basophils (%) (Auto) 0, Neutrophils # (Auto) 4.1, Lymphocytes # (Auto) 0.7L, Monocytes # (Auto) 0.1, Eosinophils # (Auto) 0.0, Basophils # (Auto) 0.0, Immature Granulocyte # (Auto) 0.0, Sodium Level 133L, Potassium Level 3.7, Chloride Level 98, Carbon Dioxide Level 27, Anion Gap 8, Blood Urea Nitrogen 13, Creatinine 0.76, Estimat Glomerular Filtration Rate > 60, BUN/Creatinine Ratio 17, Glucose Level 156H, Calcium Level 8.5, Corrected Calcium 9.2, Total Bilirubin 0.4, Aspartate Amino Transf (AST/SGOT) 32, Alanine Aminotransferase (ALT/SGPT) 35, Alkaline Phosphatase 88, Total Protein 6.4, Albumin 3.1L A/P-Cardiology Assessment/Admission Diagnosis Progressive dyspnea likely multifactorial, acute on chronic exacerbation of COPD, acute varma CHF Chronic chest discomfort that is likely musculoskeletal CAD - Ac inf-post STEMI on 08/31/18 treated with PCI. - Last cath on 10/19/19: mild CAD, patent stents in mid LCX that are known to be overlapping Alpine Xience 2.72x877 and 2.25x12 stens, LVEF 65%, normal LVEDP Echo 08/01/20: LVEF 60-65%, grade 2 varma dysfunction, mod MR H/o mod pulm htn, etiology undetermined, probably related to chronic pulm dz H/O chronic tobacco use - 1 PPD Chronic pain and anxiety No evidence of significant obstructive PAD of the lower limbs per segmental pressures of May 2017 Fibromyalgia Depression Carotid arterial disease: 60-79% R ICA stenosis and less than 40% L ICA stenosis per u/s of July 2017. Last carotid u/s of 03/22/19 showed less than 40% bilateral stenoses Basal cell carcinoma of the L nostril has been diagnosed and managed by Dr Wong. Ms. Perez states he has deliberately decided against surgery Discussion and Recomendations Complex management due to multiple comorbidities and noncompliance with instructions to quit smoking Treat with diuretics Acute on chronic exacerbation of COPD - management per medical/pulmonary services Continue /Plavix Monitor lab closely Replace electrolytes as indicated Further recs will be based on her hospital course We would like to thank medical services for this consult SANDRINE KHANNA MD FACP FAC CCDS August 01, 2020 17:19
[2020-08-01 20:22] VITALS: BP 118/59
[2020-08-01] MEDS: DULoxetine 30 MG (CYMBALTA) CAP PO SCH (20:38)
[2020-08-01] MEDS: PANTOPRAZOLE 40 MG (PROTONIX) TAB PO SCH (20:38)
[2020-08-01] MEDS: MONTELUKAST 10 MG (SINGULAIR) TAB PO SCH (20:38)
[2020-08-01] MEDS: ENOXAPARIN 40 MG/0.4 ML (LOVENOX) SYR SC SCH (20:39)
[2020-08-01] MEDS ORDERED: ASPIRIN 81 MG CHEW (CHILDREN'S ASA) PO SCH (21:00)
[2020-08-01] MEDS ORDERED: traZODone 100 MG (DESYREL) TAB PO SCH (21:00)
[2020-08-01] MEDS ORDERED: MONTELUKAST 10 MG (SINGULAIR) TAB PO SCH (21:00)
[2020-08-01] MEDS ORDERED: NON-FORMULARY MEDICATION 1 EA EA (Cetirizine HCl 10 MG) PO SCH (21:00)
[2020-08-01] MEDS ORDERED: CLOPIDOGREL 75 MG (PLAVIX) TABLET PO SCH (21:00)
[2020-08-01] MEDS: RT--FLUTICASONE/SALMETEROL 113-14 (AIRDUO RespiCLICK) IH SCH (21:59)
[2020-08-01] MEDS: MELATONIN 3 MG TABLET PO PRN (22:09)
[2020-08-01] MEDS: CALCIUM CARBONATE 500 MG (TUMS) TAB.CHEW PO PRN (23:27)
[2020-08-02] VITALS (7 sets, daily range): BP systolic 106–147; BP diastolic 59–86
[2020-08-02] MEDS: RT-ALBUTEROL/IPRATROPIUM 3 ML (DUONEB) VIAL INH SCH ×6 (03:00→21:34)
[2020-08-02] MEDS: HYDROcodone/APAP 5 MG/325 MG (LORTAB) TAB PO PRN ×4 (04:42→20:46)
[2020-08-02] MEDS: CALCIUM CARBONATE 500 MG (TUMS) TAB.CHEW PO PRN (04:43)
[2020-08-02 05:05] LABS: BASOPHILS % (AUTO) 0 % (0-10); EOSINOPHILS % (AUTO) 0 % (0-10); HEMATOCRIT 30 % (35-52); HEMOGLOBIN 9.7 g/dL (11.5-16.0); LYMPHOCYTES # (AUTO) 1.3 10^3/uL (1.0-4.0); LYMPHOCYTES % (AUTO) 7 % (12-44); MEAN CORPUSCULAR HEMOGLOBIN 29 pg (25-34); MEAN CORPUSCULAR HGB CONC 32 g/dL (32-36); MEAN CORPUSCULAR VOLUME 90 fL (80-99); MEAN PLATELET VOLUME 8.7 fL (9.0-12.2); MONOCYTES # (AUTO) 0.7 10^3/uL (0.0-1.0); MONOCYTES % (AUTO) 4 % (0-12); NEUTROPHILS # (AUTO) 16.7 10^3/uL (1.8-7.8); NEUTROPHILS % (AUTO) 89 % (42-75); PLATELET COUNT 339 10^3/uL (130-400); WHITE BLOOD COUNT 18.7 10^3/uL (4.3-11.0)
[2020-08-02 05:19] LABS: CHLORIDE 100 MMOL/L (98-107); POTASSIUM 4.1 MMOL/L (3.6-5.0); SODIUM 135 MMOL/L (135-145)
[2020-08-02 05:20] LABS: CALCIUM 8.7 MG/DL (8.5-10.1)
[2020-08-02 05:21] LABS: GLUCOSE 141 MG/DL (70-105); TOTAL PROTEIN 6.1 GM/DL (6.4-8.2)
[2020-08-02 05:22] LABS: BAND NEUTROPHILS 1 %; CARBON DIOXIDE 25 MMOL/L (21-32); HYPOCHROMASIA SLIGHT; LYMPHOCYTES % (MANUAL) 3 %; MONOCYTES % (MANUAL) 4 %; NEUTROPHILS % (MANUAL) 92 %; RBC MORPH NORMAL
[2020-08-02 05:23] LABS: BILIRUBIN,TOTAL 0.3 MG/DL (0.1-1.0)
[2020-08-02 05:24] LABS: ALKALINE PHOSPHATASE 82 U/L (40-136)
[2020-08-02 05:25] LABS: CREATININE SERUM 0.78 MG/DL (0.60-1.30); GFR ESTIMATED > 60
[2020-08-02 05:26] LABS: BUN/CREATININE RATIO 23
[2020-08-02 05:28] LABS: ALANINE AMINOTRANSFERASE 29 U/L (0-55)
[2020-08-02] MEDS: FUROSEMIDE 40 MG/4 ML INJ (LASIX) IVP SCH ×2 (06:25→17:37)
[2020-08-02] MEDS: methylPREDNISolone 40 MG/ML (Solu-MEDROL) VIAL IV SCH ×4 (06:25→23:41)
[2020-08-02] MEDS: CLOPIDOGREL 75 MG (PLAVIX) TABLET PO SCH (08:16)
[2020-08-02] MEDS: SENNA W/DOCUSATE (SENOKOT S) TABLET PO SCH ×2 (08:16→20:45)
[2020-08-02] MEDS: KCL 20 MEQ TAB (K-DUR) PO SCH ×2 (08:16→17:41)
[2020-08-02] MEDS: ASPIRIN 81 MG CHEW (CHILDREN'S ASA) PO SCH (08:16)
[2020-08-02] MEDS: LORATADINE (CLARITIN) 10 MG TAB PO SCH (08:16)
--- NOTE | 2020-08-02 09:31 | Progress Note - Cardiology ---
Cardiology SOAP Progress Note Subjective: Sitting up in bed States she is feeling much better today Breathing has improved No c/o CP or palpitations LE swelling has improved Objective: I&O/Vital Signs 08/02/20 08/02/20 08/03/20 08/03/20 21:34 23:14 01:00 02:26 Temp 36.5 Pulse 97 80 Resp 18 B/P (MAP) 114/59 (77) Pulse Ox 94 96 94 O2 Delivery Nasal Cannula Nasal Cannula Nasal Cannula O2 Flow Rate 2.00 2.00 2.00 08/03/20 08/03/20 08/03/20 08/03/20 03:26 06:46 06:59 08:00 Temp 36.7 36.2 Pulse 93 75 75 Resp 18 18 B/P (MAP) 113/68 (83) 135/85 (102) Pulse Ox 93 94 96 O2 Delivery Nasal Cannula Nasal Cannula Nasal Cannula O2 Flow Rate 2.00 2.00 2.00 08/03/20 00:00 Intake Total 2260 ml Balance 2260 ml Weight (Pounds): 100 Weight (Ounces): 2.0 Weight (Calculated Kilograms): 45.902153 Constitutional: AAO x 3, well-developed, well-nourished Respiratory: chest expansion is symmetric, chest is bilaterally symmetric, rhonchi, other Cardiovascular: regular rate-rhythm, S1 and S2 Gastrointestional: soft, round, audible bowel sounds Extremities: swelling (mild bilat LE swelling) Neurologic/Psychiatric: grossly intact Results/Procedures: Labs Laboratory Tests 08/03/20 04:35: White Blood Count 14.8H, Red Blood Count 3.45L, Hemoglobin 10.0L, Hematocrit 31L , Mean Corpuscular Volume 90, Mean Corpuscular Hemoglobin 29, Mean Corpuscular Hemoglobin Concent 32, Red Cell Distribution Width 15.9H, Platelet Count 358, Mean Platelet Volume 8.9L, Immature Granulocyte % (Auto) 1, Neutrophils (%) (Auto) 83H, Lymphocytes (%) (Auto) 12, Monocytes (%) (Auto) 4, Eosinophils (%) (Auto) 0, Basophils (%) (Auto) 0, Neutrophils # (Auto) 12.2H, Lymphocytes # (Auto) 1.8, Monocytes # (Auto) 0.7, Eosinophils # (Auto) 0.0, Basophils # (Auto) 0.0, Immature Granulocyte # (Auto) 0.1, Sodium Level 133L, Potassium Level 5.2H, Chloride Level 97L, Carbon Dioxide Level 29, Anion Gap 7, Blood Urea Nitrogen 27H, Creatinine 0.86, Estimat Glomerular Filtration Rate > 60, BUN/Creatinine Ratio 31, Glucose Level 132H, Calcium Level 9.1, Corrected Calcium 9.7, Total Bilirubin 0.3, Aspartate Amino Transf (AST/SGOT) 20, Alanine Aminotransferase (ALT/SGPT) 27, Alkaline Phosphatase 83, Total Protein 6.3L, Albumin 3.2 08/03/20 08:30: Potassium Level 4.7 Microbiology 07/31/20 Blood Culture - Preliminary, Resulted No growth Procedures NAME: JEY PEREZ [facility] REC#: [id number] PT STATUS: ADM Duarte : 1955 PHYSICIAN: YURIY HERNANDEZ DO ADMIT DATE: 07/31/20 Signed Date of Exam:08/01/20 CT HEAD WO PROCEDURE: CT head without contrast. TECHNIQUE: Multiple contiguous axial images were obtained through the brain without the use of intravenous contrast. Auto Exposure Controls were utilized during the CT exam to meet ALARA standards for radiation dose reduction. INDICATION: TIAs. No relevant comparison. FINDINGS: There is no hemorrhage, hydrocephalus, edema, mass or mass effect. No sulcal effacement. The cortical chan-white matter differentiations maintained. Cerebral cortical volume appeared unremarkable. There are no abnormal extra-axial fluid collections. The basilar cisterns are patent. No mass or mass effect. The orbits, sinuses and calvarium all appeared nonacute. IMPRESSION: Unremarkable CT head. Dictated by: Dictated on workstation # [id number] Dict: 08/01/20 1203 Trans: 08/01/20 1648 [id number] Interpreted by: IRISH TANNER Electronically signed by: IRISH TANNER 08/01/20 [id number] A/P: Assessment: Progressive dyspnea likely multifactorial, acute on chronic exacerbation of COPD, acute varma CHF Leukocytosis of undetermined etiology - management per medical services Chronic chest discomfort that is likely musculoskeletal CAD - Ac inf-post STEMI on 08/31/18 treated with PCI. - Last cath on 10/19/19: mild CAD, patent stents in mid LCX that are known to be overlapping Alpine Xience 2.51g420 and 2.25x12 stens, LVEF 65%, normal LVEDP Echo 08/01/20: LVEF 60-65%, grade 2 varma dysfunction, mod MR H/o mod pulm htn, etiology undetermined, probably related to chronic pulm dz H/O chronic tobacco use - 1 PPD Chronic pain and anxiety No evidence of significant obstructive PAD of the lower limbs per segmental pressures of May 2017 Fibromyalgia Depression Carotid arterial disease: 60-79% R ICA stenosis and less than 40% L ICA stenosis per u/s of July 2017. Last carotid u/s of 03/22/19 showed less than 40% bilateral stenoses Basal cell carcinoma of the L nostril has been diagnosed and managed by Dr Wong. Ms. Perez states he has deliberately decided against surgery Plan: Complex management due to multiple comorbidities and noncompliance with instructions to quit smoking Continue to treat with diuretics Acute on chronic exacerbation of COPD - management per medical/pulmonary services Continue ASA/Plavix D/C IVF Monitor lab closely Replace electrolytes as indicated MATEO CARY August 02, 2020 09:31
--- NOTE | 2020-08-02 09:31 | Progress Note - Hospitalist ---
Subjective HPI/CC On Admission Date Seen by Provider: August 02, 2020 Time Seen by Provider: 09:30 CC: SOB HPI: This is a 65yoWF clinic pt of Gabrielle Maza at [facility] who presented from [place] [facility] due to SOB from exacerbation of COPD and CHF. Lasix has really helped the lower extremity edema. Home meds were restarted and cardiology has been consulted. We will go ahead and get a CT scan of the brain due to her suspicion of a TIA because of her off balance and left side drooling at times but those are not present currently. Subjective/Events-last exam Pt feels much better Breathing better PT and OT will be ordered WBC 18 from steroids Checked meds and labs Review of Systems General: Fatigue Pulmonary: Dyspnea Focused Exam Lactate Level 07/31/20 14:30: Lactic Acid Level 1.88 Objective Exam Vital Signs Vital Signs Date Time Temp Pulse Resp B/P (MAP) Pulse Ox O2 Delivery O2 Flow Rate FiO2 08/03/20 03:26 36.7 93 18 113/68 (83) 93 Nasal Cannula 2.00 Capillary Refill : Less Than 3 Seconds General Appearance: No Apparent Distress, WD/WN, Chronically ill Respiratory: No Accessory Muscle Use, No Respiratory Distress, Decreased Breath Sounds Cardiovascular: Regular Rate, Rhythm Neurologic/Psychiatric: Alert, Oriented x3 Results/Procedures Lab Laboratory Tests 08/03/20 04:35 Patient resulted labs reviewed. Assessment/Plan Assessment and Plan Assess & Plan/Chief Complaint Assessment: Dyspnea AECOPD Smoker Volume overload Fibromyalgia Plan: IV Lasix IV steroids Nebs O2 08/02/20: PT OT HLIVF Monitor closely Diagnosis/Problems Diagnosis/Problems (1) COPD with exacerbation Status: Acute (2) Dyspnea Status: Acute Qualifiers: Dyspnea type: shortness of breath Qualified Codes: R06.02 - Shortness of breath (3) Congestive heart failure Status: Acute Qualifiers: Heart failure type: unspecified Heart failure chronicity: unspecified Qualified Codes: I50.9 - Heart failure, unspecified (4) Pulmonary edema with congestive heart failure Status: Acute (5) COPD (chronic obstructive pulmonary disease) Status: Acute (6) CAD (coronary artery disease) YURIY HERNANDEZ DO August 02, 2020 09:31
[2020-08-02] MEDS: RT--FLUTICASONE/SALMETEROL 113-14 (AIRDUO RespiCLICK) IH SCH ×2 (10:41→18:42)
--- NOTE | 2020-08-02 13:23 | Occupational Therapy Eval ---
OT Evaluation-General/PLF Medical Diagnosis Admission Date July 31, 2020 at 19:09 Medical Diagnosis: dyspnea, COPD exacerbation Onset Date: July 31, 2020 Therapy Diagnosis Therapy Diagnosis: weakness Height/Weight Height (Feet): 4 Height (Inches): 9.00 Weight (Pounds): 100 Weight (Ounces): 2.0 Precautions Precautions/Isolations: Standard Precautions Referral Physician: Bell Referral Reason: Evaluation/Treatment Social History Home: Single Level Current Living Status: Alone Entry Into Home: Stairs With Railing (has a metal ornate post to hold onto) Steps Into Home: 1 ADL-Prior Level of Function SCALE: Activities may be completed with or without assistive devices. 6-Zkazphdzwa-sstlres completes the activity by him/herself with no assistance from a helper. 5-Set-up or Clean-up Assistance-helper sets up or cleans up; patient completes activity. [place] assists only prior to or following the activity. 4-Supervision or Touching Assistance-helper provides verbal cues and/or touching/steadying and/or contact guard assistance as patient completes activity. Assistance may be provided throughout the activity or intermittently. 3-Partial/Moderate Assistance-helper does LESS THAN HALF the effort. [place] lifts, holds or supports trunk or limbs, but provides less than half the effort. 2-Substantial/Maximal Assistance-helper does MORE THAN HALF the effort. [place] lifts or holds trunk or limbs and provides more than half the effort. 2-Qkxyxruhr-dihnen does ALL the effort. Patient does none of the effort to complete the activity. Or, the assistance of 2 or more helpers is required for the patient to complete the activity. If activity was not attempted, code reason: 7-Patient Refused. 9-Not Applicable-not attempted and the patient did not perform the activity before the current illness, exacerbation or injury. 10-Not Attempted due to Environmental Limitations-(lack of equipment, weather restraints, etc.). 88-Not Attempted due to Medical Conditions or Safety Concerns. ADL PLOF Comments Pt reports living alone, IND with ADLs and functional mobility at [facility]. Pt indicates she has been using SPC for the last week, prior to using the cane she has had multiple falls. She indicates no falls since using the cane. she has a tub/shower, no SC, although she has a garden chair that she has used in the past as a SC. Self Care: Independent Functional Cognition: Independent DME/Equipment: Tub/Shower OT Current Status Subjective Pt laying in bed, agreeable to OT Tx. Mental Status/Objective Patient Orientation: Person, Place, Time, Situation Current Glasses/Contacts: Yes Upper Extremity ROM WFL, BUE shoulder flexion to approx 150 degrees Upper Extremity Coordination WFL Upper Extremity Sensation WFL Upper Extremity Strength grossly 3/5 BUEs ADL-Treatment Eating (QC): 6 (Per pt report, IND with breakfast) On/Off Footwear (QC): 6 (IND donning bilateral gripper socks seated EOB) Toileting Hygiene (QC): 4 (CGA per pt report, she was able to manage clothing and perform hygiene.) Other Treatments Pt laying in bed, OT educated pt on purpose and benefit of OT, she verbalized understanding. Pt provided information about PLOF and home set up, and participated in UE screen. Pt transferred supine to sit EOB, SBA. Pt donned footwear, then hand held assist to transfer from EOB to recliner. Pt states she has not ate lunch yet, OT assisted pt with locating menu, OT read phone number to pt, she was able to dial and place order. post tx, pt seated in recliner, call light in reach and all needs met. Education OT Patient Education: Correct positioning, Modified ADL techniques, Progress toward Goal/Update tx plan, Purpose of tx/functional activities, Rehab process Teaching Recipient: Patient Teaching Methods: Discussion Response to Teaching: Verbalize Understanding OT Fci Goals Fci Goals Time Frame: August 09, 2020 Eating (QC): 6 Oral Hygiene (QC): 6 Toileting Hygiene (QC): 6 Shower/Bathe Self (QC): 6 Upper Body Dressing (QC): 6 Lower Body Dressing (QC): 6 On/Off Footwear (QC): 6 Additional Goals: 1-Demonstrate ADL Tasks, 2-Verbalize Understanding, 3-ImproveStrength/Raffi 1=Demonstrate adherence to instructed precautions during ADL tasks. 2=Patient will verbalize/demonstrate understanding of assistive devices/modifications for ADL. 3=Patient will improve strength/tolerance for activity to enable patient to perform ADL's. OT Education/Plan Problem List/Assessment Assessment: Decreased Activ Tolerance, Decreased UE Strength, Impaired I ADL's, Impaired Self-Care Skills Pt would benefit from skilled OT services in order to increase safety and independence with ADLs and functional mobility and increase BUE strength and activity tolerance, to maximize LOF for safe return home. Discharge Recommendations Plan/Recommendations: Continue POC Treatment Plan/Plan of Care Patient would benefit from OT for education, treatment and training to promote independence in ADL's, mobility, safety and/or upper extremity function for ADL's. Plan of Care: ADL Retraining, Functional Mobility, UE Funct Exercise/Act Treatment Duration: August 09, 2020 Frequency: 5 times per week Estimated Hrs Per Day: .25 hour per day Time/GCodes Start Time: 12:50 Stop Time: 13:04 Total Time Billed (hr/min): 14 Billed Treatment Time 1, KADIE RODRIGUEZ OT August 02, 2020 13:23
--- NOTE | 2020-08-02 15:30 | Physical Therapy Evaluation ---
PT Evaluation-General Medical Diagnosis Admission Date July 31, 2020 at 19:09 Medical Diagnosis: dyspnea, COPD exacerbation Onset Date: July 31, 2020 Therapy Diagnosis Therapy Diagnosis: impaired mobility, strength, endurance Height/Weight Height (Feet): 4 Height (Inches): 9.00 Weight (Pounds): 100 Weight (Ounces): 2.0 Precautions Precautions/Isolations: Standard Precautions Referral Physician: Ana M Luu DO Reason for Referral: Evaluation/Treatment Medical History Additional Medical History Past Medical History Surgeries: Yes Coronary Stent Respiratory: Yes (O2 2L AT HS) COPD Cardiac: Yes Coronary Artery Disease, Heart Attack, High Cholesterol, Hypertension Neurological: Yes Headaches /Migraines Genitourinary: No Gastrointestinal: No Chronic Constipation, Irritable Bowel Musculoskeletal: Yes Fibromyalgia, Rheumatoid Arthritis HEENT: No Cancer: Yes Cervical Did You Recieve Any Treatments: Yes What Type of Treatment Did You: Surgical Intervention Psychosocial: Yes Depression Integumentary: No Eczema Social History Home: Single Level Current Living Status: Alone Entry Into Home: Stairs With Railing (has a metal ornate post to hold onto) PT Steps Into Home: 1 Prior Prior Level of Function SCALE: Activities may be completed with or without assistive devices. 5-Zrmfuabmfw-qdjlyvn completes the activity by him/herself with no assistance from a helper. 5-Set-up or Clean-up Assistance-helper sets up or cleans up; patient completes activity. [place] assists only prior to or following the activity. 4-Supervision or Touching Assistance-helper provides verbal cues and/or touching/steadying and/or contact guard assistance as patient completes activity. Assistance may be provided throughout the activity or intermittently. 3-Partial/Moderate Assistance-helper does LESS THAN HALF the effort. [place] lifts, holds or supports trunk or limbs, but provides less than half the effort. 2-Substantial/Maximal Assistance-helper does MORE THAN HALF the effort. [place] lifts or holds trunk or limbs and provides more than half the effort. 5-Qmvdawacf-ovvgcl does ALL the effort. Patient does none of the effort to complete the activity. Or, the assistance of 2 or more helpers is required for the patient to complete the activity. If activity was not attempted, code reason: 7-Patient Refused. 9-Not Applicable-not attempted and the patient did not perform the activity before the current illness, exacerbation or injury. 10-Not Attempted due to Environmental Limitations-(lack of equipment, weather restraints, etc.). 88-Not Attempted due to Medical Conditions or Safety Concerns. Bed Mobility: 6 Transfers (B,C,W/C): 6 Gait: 6 Stairs: 6 Indoor Mobility (Ambulation): Independent Stairs: Independent Patient states she has recently been using a SPC but no AD before that. PT Evaluation-Current Subjective Patient in recliner pre tx, agrees to PT, has no complaints of pain. Patient states she is breathing much better. Pt/Family Goals to be independent at home Objective Patient Orientation: Person, Place, Situation ROM/Strength ROM Lower Extremities WNL Strength Lower Extremities LLE (hip flexion 3+/5, knee flexion 4+/5, knee extension 4+/5, dorsiflexion 4+/5), RLE (hip flexion 3+/5, knee flexion 4+/5, knee extension 4+/5, dorsiflexion 4+/5) Sensory Hearing: Functional Sensation Right Lower Extremit: Intact Sensation Left Lower Extremity: Intact Transfers Sit to Stand (QC): 4 Chair/Ldz-wt-Cfxsg Xfer(QC): 4 Gait Does the Patient Walk?: Yes Mode of Locomotion: Walk Anticipated Mode of Locomotion: Walk Walk 10 feet (QC): 4 Walk 50 ft with 2 Turns(QC): 4 Walk 150 ft (QC): 4 Distance: 200' Gait Assistive Device: FWW Comments/Gait Description SBA, slow but steady ambulation, some slight SOB by the time she got back to her room Balance Sitting Static: Normal Sitting Dynamic: Normal Standing Static: Good Standing Dynamic: Good Treatment seated BLE exercises x20 (AP, LAQ) Assessment/Needs Patient in recliner post tx with nurse call, phone, tray, all needs met. Patient is CGA/SBA for sit to stand and transfers and ambulation. Rehab Potential: Fair PT Tactical/Mobile Watch Officer Goals Tactical/Mobile Watch Officer Goals PT Skilled Nursing Goals Time Frame: August 09, 2020 Roll Left & Right (QC): 6 Sit to Lying (QC): 6 Lying-Sitting on Side/Bed(QC): 6 Sit to Stand (QC): 6 Chair/Kmi-ks-Hycyo Xfer(QC): 6 Walk 10 feet (QC): 6 Walk 50ft with 2 Turns (QC): 6 Walk 150 ft (QC): 6 1 Step (curb) (QC): 6 PT Plan Problem List Problem List: Activity Tolerance, Functional Strength, Safety, Balance, Gait, Transfer Treatment/Plan Treatment Plan: Continue Plan of Care Treatment Plan: Education, Functional Activity Raffi, Functional Strength, Gait, Safety, Therapeutic Exercise, Transfers Treatment Duration: August 09, 2020 Frequency: 6 times per week Estimated Hrs Per Day: .25 hour per day Patient and/or Family Agrees t: Yes Safety Risks/Education Patient Education: Gait Training, Transfer Techniques, Correct Positioning, Safety Issues Teaching Recipient: Patient Teaching Methods: Demonstration, Discussion Response to Teaching: Reinforcement Needed Discharge Recommendations Plan Patient will perform bed mobility and transfer training, balance and endurance training, functional strengthening, stair training, gait training, and education, to improve functional mobility and independence at home. Therapy Discharge Recommendati: Scheduled Assistance, Home & Family Time/GCodes Time In: 1314 Time Out: 1328 Total Billed Treatment Time: 14 Total Billed Treatment 1 visit JONATHAN VOSS PT August 02, 2020 15:29
--- NOTE | 2020-08-02 18:56 | Progress Note - Cardiology ---
Cardiology SOAP Progress Note Subjective: Shortness of breath is better No cp or palp or syncope No n/v/d Gen malaise, improving Objective: I&O/Vital Signs 08/02/20 08/02/20 08/02/20 08/02/20 06:57 08:00 08:00 10:41 Temp 36.0 Pulse 89 115 Resp 18 B/P (MAP) 147/86 (106) Pulse Ox 91 96 O2 Delivery Nasal Cannula Room Air Nasal Cannula O2 Flow Rate 2.50 2.00 08/02/20 08/02/20 08/02/20 08/02/20 12:00 12:34 14:08 16:06 Temp 36.6 36.7 Pulse 101 93 99 Resp 18 20 B/P (MAP) 124/77 (93) 106/71 (83) Pulse Ox 92 92 92 O2 Delivery Nasal Cannula Nasal Cannula Nasal Cannula O2 Flow Rate 2.50 2.00 2.00 08/02/20 18:43 Pulse Ox 94 O2 Delivery Nasal Cannula O2 Flow Rate 2.00 08/02/20 00:00 Intake Total 4780 ml Output Total 1950 ml Balance 2830 ml Weight (Pounds): 100 Weight (Ounces): 2.0 Weight (Calculated Kilograms): 45.643949 Constitutional: AAO x 3, well-developed, well-nourished Respiratory: chest expansion is symmetric, chest is bilaterally symmetric, rhonchi, other Cardiovascular: regular rate-rhythm, S1 and S2 Gastrointestional: soft, round, audible bowel sounds Extremities: swelling (mild bilat LE swelling) Neurologic/Psychiatric: grossly intact Results/Procedures: Labs Laboratory Tests 08/02/20 04:45: White Blood Count 18.7H, Red Blood Count 3.35L, Hemoglobin 9.7L, Hematocrit 30L, Mean Corpuscular Volume 90, Mean Corpuscular Hemoglobin 29, Mean Corpuscular Hemoglobin Concent 32, Red Cell Distribution Width 15.7H, Platelet Count 339, Mean Platelet Volume 8.7L, Immature Granulocyte % (Auto) 1, Neutrophils (%) (Auto) 89H, Lymphocytes (%) (Auto) 7L, Monocytes (%) (Auto) 4, Eosinophils (%) (Auto) 0, Basophils (%) (Auto) 0, Neutrophils # (Auto) 16.7H, Lymphocytes # (Auto) 1.3, Monocytes # (Auto) 0.7, Eosinophils # (Auto) 0.0, Basophils # (Auto) 0.0, Immature Granulocyte # (Auto) 0.1, Neutrophils % (Manual) 92, Lymphocytes % (Manual) 3, Monocytes % (Manual) 4, Band Neutrophils 1, Hypochromasia SLIGHT, Blood Morphology Comment NORMAL, Sodium Level 135, Potassium Level 4.1, Chloride Level 100, Carbon Dioxide Level 25, Anion Gap 10, Blood Urea Nitrogen 18, Creatinine 0.78, Estimat Glomerular Filtration Rate > 60, BUN/Creatinine Ratio 23, Glucose Level 141H, Calcium Level 8.7, Corrected Calcium 9.5, Total Bilirubin 0.3, Aspartate Amino Transf (AST/SGOT) 23, Alanine Aminotransferase (ALT/SGPT) 29, Alkaline Phosphatase 82, Total Protein 6.1L, Albumin 3.0L Microbiology 07/31/20 Blood Culture - Preliminary, Resulted No growth Laboratory Tests 08/01/20 05:19 08/02/20 04:45 A/P: Assessment: Progressive dyspnea likely multifactorial, acute on chronic exacerbation of C OPD, acute varma CHF Leukocytosis of undetermined etiology - management per medical services Chronic chest discomfort that is likely musculoskeletal CAD - Ac inf-post STEMI on 08/31/18 treated with PCI. - Last cath on 10/19/19: mild CAD, patent stents in mid LCX that are known to be overlapping Alpine Xience 2.26d945 and 2.25x12 stens, LVEF 65%, normal LVEDP Echo 08/01/20: LVEF 60-65%, grade 2 varma dysfunction, mod MR H/o mod pulm htn, etiology undetermined, probably related to chronic pulm dz H/O chronic tobacco use - 1 PPD Chronic pain and anxiety No evidence of significant obstructive PAD of the lower limbs per segmental pressures of May 2017 Fibromyalgia Depression Carotid arterial disease: 60-79% R ICA stenosis and less than 40% L ICA stenosis per u/s of July 2017. Last carotid u/s of 03/22/19 showed less than 40% bilateral stenoses Basal cell carcinoma of the L nostril has been diagnosed and managed by Dr Wong. Ms. Perez states he has deliberately decided against surgery Plan: Complex management due to multiple comorbidities and noncompliance with instructions to quit smoking Continue to treat with diuretics Acute on chronic exacerbation of COPD - management per Medical/Pulmonary services Continue ASA/Plavix D/C IVF Monitor lab closely Replace electrolytes as indicated SANDRINE KHANNA MD FACP FACC CCDS August 02, 2020 18:56
[2020-08-02] MEDS: DULoxetine 30 MG (CYMBALTA) CAP PO SCH (20:44)
[2020-08-02] MEDS: PANTOPRAZOLE 40 MG (PROTONIX) TAB PO SCH (20:45)
[2020-08-02] MEDS: MONTELUKAST 10 MG (SINGULAIR) TAB PO SCH (20:45)
[2020-08-02] MEDS: MELATONIN 3 MG TABLET PO PRN (20:45)
[2020-08-02] MEDS: ENOXAPARIN 40 MG/0.4 ML (LOVENOX) SYR SC SCH (20:47)
[2020-08-03] MEDS: HYDROcodone/APAP 5 MG/325 MG (LORTAB) TAB PO PRN ×3 (01:33→11:06)
[2020-08-03] MEDS: RT-ALBUTEROL/IPRATROPIUM 3 ML (DUONEB) VIAL INH SCH ×3 (02:26→10:53)
[2020-08-03 03:26] VITALS: BP 113/68
[2020-08-03 04:57] LABS: BASOPHILS % (AUTO) 0 % (0-10); EOSINOPHILS % (AUTO) 0 % (0-10); HEMATOCRIT 31 % (35-52); LYMPHOCYTES # (AUTO) 1.8 10^3/uL (1.0-4.0); LYMPHOCYTES % (AUTO) 12 % (12-44); MEAN CORPUSCULAR HEMOGLOBIN 29 pg (25-34); MEAN CORPUSCULAR HGB CONC 32 g/dL (32-36); MEAN CORPUSCULAR VOLUME 90 fL (80-99); MEAN PLATELET VOLUME 8.9 fL (9.0-12.2); MONOCYTES # (AUTO) 0.7 10^3/uL (0.0-1.0); MONOCYTES % (AUTO) 4 % (0-12); NEUTROPHILS # (AUTO) 12.2 10^3/uL (1.8-7.8); NEUTROPHILS % (AUTO) 83 % (42-75); PLATELET COUNT 358 10^3/uL (130-400); WHITE BLOOD COUNT 14.8 10^3/uL (4.3-11.0)
[2020-08-03 05:10] LABS: ALBUMIN 3.2 GM/DL (3.2-4.5); CHLORIDE 97 MMOL/L (98-107); POTASSIUM 5.2 MMOL/L (3.6-5.0); SODIUM 133 MMOL/L (135-145)
[2020-08-03 05:11] LABS: CALCIUM 9.1 MG/DL (8.5-10.1)
[2020-08-03 05:12] LABS: GLUCOSE 132 MG/DL (70-105); TOTAL PROTEIN 6.3 GM/DL (6.4-8.2)
[2020-08-03 05:13] LABS: CARBON DIOXIDE 29 MMOL/L (21-32)
[2020-08-03 05:14] LABS: BILIRUBIN,TOTAL 0.3 MG/DL (0.1-1.0)
[2020-08-03 05:16] LABS: ALKALINE PHOSPHATASE 83 U/L (40-136); CREATININE SERUM 0.86 MG/DL (0.60-1.30); GFR ESTIMATED > 60
[2020-08-03 05:17] LABS: BUN/CREATININE RATIO 31
[2020-08-03 05:19] LABS: ALANINE AMINOTRANSFERASE 27 U/L (0-55)
[2020-08-03] MEDS: FUROSEMIDE 40 MG/4 ML INJ (LASIX) IVP SCH (06:36)
[2020-08-03] MEDS: methylPREDNISolone 40 MG/ML (Solu-MEDROL) VIAL IV SCH ×2 (06:36→12:03)
[2020-08-03] MEDS: RT--FLUTICASONE/SALMETEROL 113-14 (AIRDUO RespiCLICK) IH SCH (06:59)
[2020-08-03 08:00] VITALS: BP 135/85
--- NOTE | 2020-08-03 09:05 | Progress Note - Cardiology ---
Cardiology SOAP Progress Note Subjective: Sitting up in bed States she feels much better than yesterday Feels LE swelling has resolved No c/o CP or palpitations Feels SOB is at her baseline Objective: I&O/Vital Signs 08/02/20 08/02/20 08/03/20 08/03/20 21:34 23:14 01:00 02:26 Temp 36.5 Pulse 97 80 Resp 18 B/P (MAP) 114/59 (77) Pulse Ox 94 96 94 O2 Delivery Nasal Cannula Nasal Cannula Nasal Cannula O2 Flow Rate 2.00 2.00 2.00 08/03/20 08/03/20 08/03/20 08/03/20 03:26 06:46 06:59 08:00 Temp 36.7 36.2 Pulse 93 75 75 Resp 18 18 B/P (MAP) 113/68 (83) 135/85 (102) Pulse Ox 93 94 96 O2 Delivery Nasal Cannula Nasal Cannula Nasal Cannula O2 Flow Rate 2.00 2.00 2.00 08/03/20 00:00 Intake Total 2260 ml Balance 2260 ml Weight (Pounds): 100 Weight (Ounces): 2.0 Weight (Calculated Kilograms): 45.707854 Constitutional: AAO x 3, well-developed, well-nourished Respiratory: chest expansion is symmetric, chest is bilaterally symmetric, rhonchi Cardiovascular: regular rate-rhythm, S1 and S2 Gastrointestional: soft, round, audible bowel sounds Extremities: No swelling Neurologic/Psychiatric: grossly intact Results/Procedures: Labs Laboratory Tests 08/03/20 04:35: White Blood Count 14.8H, Red Blood Count 3.45L, Hemoglobin 10.0L, Hematocrit 31L , Mean Corpuscular Volume 90, Mean Corpuscular Hemoglobin 29, Mean Corpuscular Hemoglobin Concent 32, Red Cell Distribution Width 15.9H, Platelet Count 358, Mean Platelet Volume 8.9L, Immature Granulocyte % (Auto) 1, Neutrophils (%) (Auto) 83H, Lymphocytes (%) (Auto) 12, Monocytes (%) (Auto) 4, Eosinophils (%) (Auto) 0, Basophils (%) (Auto) 0, Neutrophils # (Auto) 12.2H, Lymphocytes # (Auto) 1.8, Monocytes # (Auto) 0.7, Eosinophils # (Auto) 0.0, Basophils # (Auto) 0.0, Immature Granulocyte # (Auto) 0.1, Sodium Level 133L, Potassium Level 5.2H, Chloride Level 97L, Carbon Dioxide Level 29, Anion Gap 7, Blood Urea Nitrogen 27H, Creatinine 0.86, Estimat Glomerular Filtration Rate > 60, BUN/Creatinine Ratio 31, Glucose Level 132H, Calcium Level 9.1, Corrected Calcium 9.7, Total Bilirubin 0.3, Aspartate Amino Transf (AST/SGOT) 20, Alanine Aminotransferase (ALT/SGPT) 27, Alkaline Phosphatase 83, Total Protein 6.3L, Albumin 3.2 08/03/20 08:30: Potassium Level 4.7 Microbiology 07/31/20 Blood Culture - Preliminary, Resulted No growth Laboratory Tests 08/02/20 04:45 08/03/20 04:35 08/03/20 08:30 A/P: Assessment: Progressive dyspnea likely multifactorial, acute on chronic exacerbation of COPD, acute varma CHF Leukocytosis of undetermined etiology - management per medical services Chronic chest discomfort that is likely musculoskeletal CAD - Ac inf-post STEMI on 08/31/18 treated with PCI. - Last cath on 10/19/19: mild CAD, patent stents in mid LCX that are known to be overlapping Alpine Xience 2.99u744 and 2.25x12 stens, LVEF 65%, normal LVEDP Echo 08/01/20: LVEF 60-65%, grade 2 varma dysfunction, mod MR H/o mod pulm htn, etiology undetermined, probably related to chronic pulm dz H/O chronic tobacco use - 1 PPD Chronic pain and anxiety No evidence of significant obstructive PAD of the lower limbs per segmental pressures of May 2017 Fibromyalgia Depression Carotid arterial disease: 60-79% R ICA stenosis and less than 40% L ICA stenosis per u/s of July 2017. Last carotid u/s of 03/22/19 showed less than 40% bilateral stenoses Basal cell carcinoma of the L nostril has been diagnosed and managed by Dr Wong. Ms. Perez states he has deliberately decided against surgery Plan: Complex management due to multiple comorbidities and noncompliance with instructions to quit smoking Change diuretics to oral Acute on chronic exacerbation of COPD - management per Medical/Pulmonary services Continue ASA/Plavix Monitor lab Replace electrolytes as indicated OK to discharge home from cardiac stand point with out pt f/u BAIMA,MATEO L STABBER August 03, 2020 09:04
[2020-08-03] MEDS ORDERED: POTA20TA8 PO (09:07)
[2020-08-03] MEDS ORDERED: FURO40TA4 PO (09:07)
[2020-08-03] MEDS: LORATADINE (CLARITIN) 10 MG TAB PO SCH (09:12)
[2020-08-03] MEDS: ASPIRIN 81 MG CHEW (CHILDREN'S ASA) PO SCH (09:12)
[2020-08-03] MEDS: SENNA W/DOCUSATE (SENOKOT S) TABLET PO SCH (09:12)
[2020-08-03] MEDS: CLOPIDOGREL 75 MG (PLAVIX) TABLET PO SCH (09:12)
--- NOTE | 2020-08-03 11:33 | Physical Therapy Daily Note ---
PT Daily Note-Current Subjective Patient agrees to PT. RT present to test Home O2 study. Mental Status Patient Orientation: Normal For Age Attachments: Oxygen Transfers SCALE: Activities may be completed with or without assistive devices. 7-Pbvmlgjuna-ndzdula completes the activity by him/herself with no assistance from a helper. 5-Set-up or Clean-up Assistance-helper sets up or cleans up; patient completes activity. [place] assists only prior to or following the activity. 4-Supervision or Touching Assistance-helper provides verbal cues and/or touching/steadying and/or contact guard assistance as patient completes activity. Assistance may be provided throughout the activity or intermittently. 3-Partial/Moderate Assistance-helper does LESS THAN HALF the effort. [place] lifts, holds or supports trunk or limbs, but provides less than half the effort. 2-Substantial/Maximal Assistance-helper does MORE THAN HALF the effort. [place] lifts or holds trunk or limbs and provides more than half the effort. 8-Rzbpremis-vmajcv does ALL the effort. Patient does none of the effort to complete the activity. Or, the assistance of 2 or more helpers is required for the patient to complete the activity. If activity was not attempted, code reason: 7-Patient Refused. 9-Not Applicable-not attempted and the patient did not perform the activity before the current illness, exacerbation or injury. 10-Not Attempted due to Environmental Limitations-(lack of equipment, weather restraints, etc.). 88-Not Attempted due to Medical Conditions or Safety Concerns. Roll Left & Right (QC): 6 Lying to Sitting/Side of Bed(Q: 6 Sit to Stand (QC): 6 Chair/Qcv-wh-Vwhow Xfer(QC): 6 Gait Training Does the Patient Walk?: Yes Distance: 500' Walk 10 feet (QC): 6 Walk 50 ft with 2 Turns(QC): 6 Walk 150 ft (QC): 6 Gait Assistive Device: FWW FWW for energy conservation Assessment Refer to RT note for O2 qualification. Patient tolerated treatment well. PT Help Desk Specialist Goals Snf Goals PT Help Desk Specialist Goals Time Frame: August 09, 2020 Roll Left & Right (QC): 6 Sit to Lying (QC): 6 Lying-Sitting on Side/Bed(QC): 6 Sit to Stand (QC): 6 Chair/Pdn-me-Gohlz Xfer(QC): 6 Walk 10 feet (QC): 6 Walk 50ft with 2 Turns (QC): 6 Walk 150 ft (QC): 6 1 Step (curb) (QC): 6 PT Plan Treatment/Plan Treatment Plan: Continue Plan of Care Treatment Plan: Education, Functional Activity Raffi, Functional Strength, Gait, Safety, Therapeutic Exercise, Transfers Treatment Duration: August 09, 2020 Frequency: 6 times per week Estimated Hrs Per Day: .25 hour per day Patient and/or Family Agrees t: Yes Time/GCodes Time In: 1113 Time Out: 1124 Total Billed Treatment Time: 11 Total Billed Treatment 1 visit FA 11 min ANDREW YANG PT August 03, 2020 11:33
--- NOTE | 2020-08-03 11:52 | Occ Therapy Progress Note ---
Therapy Progress Note OT visited with pt, pt declines OT at this time as she just ambulated in hallways with PT and is resting. OT educated pt on purpose and benefit of OT, she still declines as she does not want her O2 level to drop. Pt plans to discharge today and would also like to save her energy to get home. OT will attempt again tomorrow if pt is still admitted. 1, visit 1125 KADIE GODDARD OT August 03, 2020 11:52
[2020-08-03 12:00] VITALS: BP 124/74
[2020-08-03] MEDS ORDERED: MONT10TA32 PO (12:15)
[2020-08-03] MEDS ORDERED: PRD10T PO (12:15)
--- NOTE | 2020-08-03 12:17 | Discharge Summary ---
Discharge Summary Hospital Course Was the Problem List Reviewed?: Yes Problems/Dx: (1) COPD with exacerbation Status: Acute (2) Dyspnea Status: Acute Qualifiers: Qualified Codes: R06.02 - Shortness of breath (3) Congestive heart failure Status: Acute Qualifiers: Qualified Codes: I50.9 - Heart failure, unspecified (4) Pulmonary edema with congestive heart failure Status: Acute (5) COPD (chronic obstructive pulmonary disease) Status: Acute (6) CAD (coronary artery disease) Hospital Course Date of Admission: July 31, 2020 at 19:09 Admission Diagnosis : Family Physician/Provider: [facility] Date of Discharge: 08/03/20 Discharge Diagnosis: AECOPD, volume overload, smoker, O2 dependence Hospital Course: Hospital course: Pt had a short hospital course, she was admitted for acute exacerbation of COPD, and she was placed on IV steroids, nebulizer treatments, oxygen supplementation and cardiology did see her for volume overload, placed on diuresis which helped tremendously and she did very well and was discharged in improved condition on four liters of oxygen during exertion and will have close follow up with Gabrielle Pascual on Friday for chronic respiratory failure. Labs and Pending Lab Test: Laboratory Tests 08/03/20 04:35: White Blood Count 14.8H, Red Blood Count 3.45L, Hemoglobin 10.0L, Hematocrit 31L , Mean Corpuscular Volume 90, Mean Corpuscular Hemoglobin 29, Mean Corpuscular Hemoglobin Concent 32, Red Cell Distribution Width 15.9H, Platelet Count 358, Mean Platelet Volume 8.9L, Immature Granulocyte % (Auto) 1, Neutrophils (%) (Auto) 83H, Lymphocytes (%) (Auto) 12, Monocytes (%) (Auto) 4, Eosinophils (%) (Auto) 0, Basophils (%) (Auto) 0, Neutrophils # (Auto) 12.2H, Lymphocytes # (Auto) 1.8, Monocytes # (Auto) 0.7, Eosinophils # (Auto) 0.0, Basophils # (Auto) 0.0, Immature Granulocyte # (Auto) 0.1, Sodium Level 133L, Potassium Level 5.2H, Chloride Level 97L, Carbon Dioxide Level 29, Anion Gap 7, Blood Urea Nitrogen 27H, Creatinine 0.86, Estimat Glomerular Filtration Rate > 60, BUN/Creatinine Ratio 31, Glucose Level 132H, Calcium Level 9.1, Corrected Calcium 9.7, Total Bilirubin 0.3, Aspartate Amino Transf (AST/SGOT) 20, Alanine Aminotransferase (ALT/SGPT) 27, Alkaline Phosphatase 83, Total Protein 6.3L, Albumin 3.2 08/03/20 08:30: Potassium Level 4.7 Microbiology 07/31/20 Blood Culture - Preliminary, Resulted No growth Home Meds Active Prednisone 10 Mg Tab 10 Mg PO DAILY Take 4 pills once daily for 2 days then decrease by 1 pill every other day Montelukast Sodium 10 Mg Tablet 10 Mg PO HS Klor-Con M20 (Potassium Chloride) 20 Meq Tab.er.prt 20 Meq PO DAILY@0700 Furosemide 40 Mg Tablet 40 Mg PO DAILY Reported Proair Hfa (Albuterol Sulfate) 1 Puff Puff 2 Puff IH Q4H PRN Advair 250-50 Diskus (Fluticasone/Salmeterol) 1 Each Blst.w.dev 1 Each IH BID Metoprolol Succinate 25 Mg Tab.er.24h 12.5 Mg PO HS Clopidogrel (Clopidogrel Bisulfate) 75 Mg Tablet 75 Mg PO HS Buprenorphine HCl 8 Mg Tab.subl 8 Mg SL TID Omeprazole 40 Mg Capsule.dr 40 Mg PO HS Atorvastatin Calcium 40 Mg Tablet 40 Mg PO HS Aspirin 81 Mg Tab.chew 81 Mg PO HS Iprat-Albut 0.5-3(2.5) mg/3 ml (Ipratropium/Albuterol Sulfate) 3 Ml Ampul.neb 3 Ml IH Q4H PRN Cetirizine HCl 10 Mg Tablet 10 Mg PO HS Duloxetine HCl 60 Mg Capsule.dr 120 Mg PO HS TAKE 2 (60MG) TABS Nitroglycerin 0.4 Mg Tab.subl 0.4 Mg SL PRN PRN Assessment/Pt Instructions [facility] Friday Gabrielle Ankur Discharge Planning: <30 minutes discharge planning Discharge Physical Examination Vital Signs Vital Signs Date Time Temp Pulse Resp B/P (MAP) Pulse Ox O2 Delivery O2 Flow Rate FiO2 08/03/20 11:21 90 82 08/03/20 10:53 Nasal Cannula 2.00 08/03/20 08:00 36.2 18 135/85 (102) General Appearance: No Apparent Distress, WD/WN, Chronically ill Respiratory: Lungs Clear Cardiovascular: Regular Rate, Rhythm Neurologic/Psychiatric: Alert, Oriented x3 Allergies: Coded Allergies: mirtazapine (Verified Adverse Reaction, Unknown, horrible nightmares, 07/24/18) Discharge Summary Date of Admission July 31, 2020 at 19:09 Date of Discharge Discharge Date: August 03, 2020 Admission Diagnosis Assessment: Dyspnea AECOPD Smoker Volume overload Fibromyalgia Plan: IV Lasix IV steroids Nebs O2 Discharge Diagnosis Assessment: Dyspnea AECOPD Smoker Volume overload Fibromyalgia Plan: IV Lasix IV steroids Nebs O2 08/02/20: PT OT HLIVF Monitor closely (1) COPD with exacerbation Status: Acute (2) Dyspnea Status: Acute Qualifiers: Qualified Codes: R06.02 - Shortness of breath (3) Congestive heart failure Status: Acute Qualifiers: Qualified Codes: I50.9 - Heart failure, unspecified (4) Pulmonary edema with congestive heart failure Status: Acute (5) COPD (chronic obstructive pulmonary disease) Status: Acute (6) CAD (coronary artery disease) YURIY HERNANDEZ DO August 03, 2020 12:17
[2020-08-03 15:56] VITALS: BP 129/67
[2020-08-04] MEDS ORDERED: KCL 20 MEQ TAB (K-DUR) PO SCH (07:00)
[2020-08-04] MEDS ORDERED: FUROSEMIDE 40 MG (LASIX) TAB PO SCH (09:00)
== END 2020-08-03 16:08 | disposition home or self-care (01) ==
LOC: EDUNIT# 14:07 → ER FS 14:09 → 4TH 19:09 → UNDOADMOB 19:09 → 4TH 21:19 → UNDODISOB 08-03 16:10
PROVIDERS: ADMIT Internal Medicine; ATTEND Internal Medicine
DX: J44.1 Chronic obstructive pulmonary disease with (acute) exacerbation (principal); M79.7 Fibromyalgia; I25.10 Atherosclerotic heart disease of native coronary artery without angina pectoris; I50.1 Left ventricular failure, unspecified; F17.210 Nicotine dependence, cigarettes, uncomplicated; I25.2 Old myocardial infarction; F41.9 Anxiety disorder, unspecified; R60.0 Localized edema; I11.0 Hypertensive heart disease with heart failure; E78.00 Pure hypercholesterolemia, unspecified; M06.9 Rheumatoid arthritis, unspecified; I27.20 Pulmonary hypertension, unspecified; F32.9 Major depressive disorder, single episode, unspecified; Z79.02 Long term (current) use of antithrombotics/antiplatelets; Z79.82 Long term (current) use of aspirin; Z79.899 Other long term (current) drug therapy; Z88.8 Allergy status to other drugs, medicaments and biological substances; Z95.5 Presence of coronary angioplasty implant and graft; Z85.41 Personal history of malignant neoplasm of cervix uteri
CPT/HCPCS: 36415; 70450; 71045; 80053 ×4; 80306; 81000; 83605; 83690; 83735; 83880; 84132; 84484; 85007; 85025 ×3; 85027; 85610; 85730; 87040; 93005 ×2; 93041; 93306; 94640 ×8; 94760 ×4; 94761; 96361; 96374; 96375; 97162; 97166; 97530; 99284; G0378

== ENCOUNTER → 2020-08-10 | Outpatient (CLI) | payer MEDICARE, MEDICAID ==
[~2020-08-10] MED LIST changes: +ATOR40TA70 PO; +FURO40TA4 PO; +MONT10TA32 PO; +OMEP40CA27 PO; +POTA20TA8 PO; +PRD10T PO; +RT-ALBUINH IH
[2020-08-10 16:34] LABS: CREATININE SERUM 0.95 MG/DL (0.60-1.30); MAGNESIUM 2.1 MG/DL (1.6-2.4); POTASSIUM 4.1 MMOL/L (3.6-5.0)
== END ==
LOC: LAB FS 15:45
PROVIDERS: ATTEND Nurse Practitioner Family
DX: I50.9 Heart failure, unspecified (principal)
CPT/HCPCS: 36415; 80048; 83735

== ENCOUNTER → 2020-09-05 | Outpatient (CLI) | payer MEDICARE, MEDICAID ==
--- NOTE | 2020-09-05 12:55 | Diagnostic Imaging Report ---
INDICATION: Fall. Forearm pain. COMPARISON: None. FINDINGS: 2 views of the left forearm were obtained and show no fractures, dislocations, or other acute bony abnormalities. Joint spaces are well maintained throughout. There is mild posterior soft tissue swelling and edema. No radiopaque foreign bodies are identified. IMPRESSION: Mild posterior soft tissue swelling and edema, but no radiographic evidence acute fracture or dislocation of the left forearm. Dictated by: Dictated on workstation # [id number]
== END ==
LOC: RAD FS 12:26
PROVIDERS: ATTEND Pediatrics
DX: M79.89 Other specified soft tissue disorders (principal); M79.632 Pain in left forearm; R60.0 Localized edema; W19.XXXA Unspecified fall, initial encounter

== ENCOUNTER 2021-08-19 19:48 | Inpatient (IN) | payer MEDICARE, MEDICAID ==
[~2021-08-19] VITALS: Ht 142.8 cm; Wt 59.2 kg
[~2021-08-19 19:48] MED LIST changes: +MONT-40 PO; -MONT10TA32 PO; -OMEP40CA27 PO; +OMEP40CA6 PO; +POTA-169 PO; -POTA20TA8 PO
[2021-08-19 19:56] LABS: HEMATOCRIT 31 % (35-52); HEMOGLOBIN 8.7 g/dL (11.5-16.0); MEAN CORPUSCULAR HEMOGLOBIN 22 pg (25-34); MEAN CORPUSCULAR VOLUME 79 fL (80-99); WHITE BLOOD COUNT 13.9 10^3/uL (4.3-11.0)
[2021-08-19 19:57] LABS: BASOPHILS # (AUTO) 0.1 10^3/uL (0.0-0.1); BASOPHILS % (AUTO) 0 % (0-10); EOSINOPHILS # (AUTO) 0.1 10^3/uL (0.0-0.3); EOSINOPHILS % (AUTO) 1 % (0-10); LYMPHOCYTES # (AUTO) 8.1 X 10^3 (1.0-4.0); LYMPHOCYTES % (AUTO) 58 % (12-44); MEAN CORPUSCULAR HGB CONC 28 g/dL (32-36); MEAN PLATELET VOLUME 8.6 fL (9.0-12.2); MONOCYTES # (AUTO) 0.6 X 10^3 (0.0-1.0); MONOCYTES % (AUTO) 4 % (0-12); NEUTROPHILS # (AUTO) 4.9 X 10^3 (1.8-7.8); NEUTROPHILS % (AUTO) 36 % (42-75); PLATELET COUNT 423 10^3/uL (130-400)
[2021-08-19] MEDS ORDERED: methylPREDNISolone 125 MG (Solu-MEDROL) VIAL IVP ONE (20:00)
[2021-08-19] MEDS ORDERED: RT-ALBUTEROL/IPRATROPIUM 3 ML (DUONEB) VIAL INH ONE ×3 (20:00→20:45)
[2021-08-19] MEDS ORDERED: FUROSEMIDE 40 MG/4 ML INJ (LASIX) IVP ONE (20:00)
[2021-08-19 20:05] LABS: INR 1.1 (0.8-1.4); PROTHROMBIN TIME PATIENT 14.2 SEC (12.2-14.7)
--- NOTE | 2021-08-19 20:11 | ED Respiratory ---
General Chief Complaint: Respiratory Problems Stated Complaint: SOB History of Present Illness Date Seen by Provider: Aug 19, 2021 Time Seen by Provider: 19:50 Initial Comments 66-year-old female with PMH of COPD/active smoker, EMS with complaints of sudden onset of shortness of breath at home. Patient's family member found her extremely short of breath and called EMS. Patient uses home oxygen 2 L and increases it to up to 4 L as needed. She is a heavy smoker as per family member. Denies fever, cough, abdominal pain, headache, chest pain. No history of sick contacts or being around anybody with known COVID Allergies and Home Medications Allergies Coded Allergies: mirtazapine (Verified Adverse Reaction, Unknown, horrible nightmares, 07/24/18) Patient Home Medication List Home Medication List Reviewed: Yes Albuterol Sulfate (Proair Hfa) 1 Puff Puff, 2 PUFF IH Q4H PRN for SHORTNESS OF BREATH, (Reported) Entered as Reported by: YVONNE HERRERA on 08/01/20 0948 Aspirin (Aspirin) 81 Mg Tab.chew, 81 MG PO HS, (Reported) Entered as Reported by: YVONNE HRERERA on 08/01/20 0941 Atorvastatin Calcium (Atorvastatin Calcium) 40 Mg Tablet, 40 MG PO HS, (Reported) Entered as Reported by: YVONNE HERRERA on 08/01/20 0941 Buprenorphine HCl (Buprenorphine HCl) 8 Mg Tab.subl, 8 MG SL TID, (Reported) Entered as Reported by: YVONNE HERRERA on 08/01/20 0941 Cetirizine HCl (Cetirizine HCl) 10 Mg Tablet, 10 MG PO HS, (Reported) Entered as Reported by: MELODY GUTIERREZ on 07/24/18 1117 Clopidogrel Bisulfate (Clopidogrel) 75 Mg Tablet, 75 MG PO HS, (Reported) Entered as Reported by: YVONNE HERRERA on 08/01/20 0941 Duloxetine HCl (Duloxetine HCl) 60 Mg Capsule.dr, 120 MG PO HS, (Reported) Entered as Reported by: FREEDOM MARQUEZ on 06/10/17 0905 Fluticasone/Salmeterol (Advair 250-50 Diskus) 1 Each Blst.w.dev, 1 EACH IH BID, (Reported) Entered as Reported by: YVONNE HERRERA on 08/01/20 0941 Furosemide (Furosemide) 40 Mg Tablet, 40 MG PO DAILY Prescribed by: MATEO CARY on 08/03/20 0907 Ipratropium/Albuterol Sulfate (Iprat-Albut 0.5-3(2.5) mg/3 ml) 3 Ml Ampul.neb, 3 ML IH Q4H PRN for SHORTNESS OF BREATH, (Reported) Entered as Reported by: MELODY GUTIERREZ on 07/24/18 1117 Metoprolol Succinate (Metoprolol Succinate) 25 Mg Tab.er.24h, 12.5 MG PO HS, (Reported) Entered as Reported by: YVONNE HERRERA on 08/01/20 0941 Montelukast Sodium (Montelukast Sodium) 10 Mg Tablet, 10 MG PO HS Prescribed by: YURIY HERNANDEZ on 08/03/20 1215 Nitroglycerin (Nitroglycerin) 0.4 Mg Tab.subl, 0.4 MG SL PRN PRN for CHEST PAIN, (Reported) Entered as Reported by: FREEDOM MARQUEZ on 06/10/17 0903 Omeprazole (Omeprazole) 40 Mg Capsule.dr, 40 MG PO HS, (Reported) Entered as Reported by: YVONNE HERRERA on 08/01/20 0941 Potassium Chloride (Klor-Con M20) 20 Meq Tab.er.prt, 20 MEQ PO DAILY@0700 Prescribed by: MATEO CARY on 08/03/20 09 Prednisone (Prednisone) 10 Mg Tab, 10 MG PO DAILY Prescribed by: YURIY HERNANDEZ on 08/03/20 1215 Review of Systems Review of Systems Constitutional: no symptoms reported EENTM: no symptoms reported Respiratory: short of breath, wheezing Cardiovascular: no symptoms reported Gastrointestinal: no symptoms reported Genitourinary: no symptoms reported Musculoskeletal: no symptoms reported Skin: no symptoms reported Psychiatric/Neurological: No Symptoms Reported Hematologic/Lymphatic: No Symptoms Reported Immunological/Allergic: no symptoms reported Past Xmurnpn-Lhwapp-Silntd Hx Seasonal Allergies Seasonal Allergies: No Past Medical History Surgeries: Yes Coronary Stent Respiratory: Yes (O2 2L AT HS) COPD Cardiac: Yes Coronary Artery Disease, Heart Attack, High Cholesterol, Hypertension Neurological: Yes Headaches /Migraines Genitourinary: No Gastrointestinal: No Chronic Constipation, Irritable Bowel Musculoskeletal: Yes Fibromyalgia, Rheumatoid Arthritis HEENT: No Cancer: Yes Cervical Did You Recieve Any Treatments: Yes What Type of Treatment Did You: Surgical Intervention Psychosocial: Yes Depression Integumentary: No Eczema Blood Disorders: No Adverse Reaction/Blood Tranf: No Family Medical History NC Physical Exam Vital Signs - First Documented 08/19/21 19:50 Temp 36.4 Pulse 125 Resp 26 B/P (MAP) 185/88 (120) Pulse Ox 100 O2 Delivery Non Rebreather Capillary Refill : Height: 4'9.00" Weight: 100lbs. 2.0oz. 45.425004tn; 30.08 BMI Method:Stated General Appearance: moderate distress, severe distress HEENT: PERRL/EOMI, normal ENT inspection, TMs normal, pharynx normal Neck: non-tender, full range of motion, supple, normal inspection Respiratory: respiratory distress, rales, rhonchi, wheezing Cardiovascular: tachycardia Gastrointestinal: normal bowel sounds, non tender, soft Extremities: normal range of motion Neurologic/Psychiatric: no motor/sensory deficits, alert, normal mood/affect, oriented x 3 Skin: normal color Focused Exam Lactate Level 08/19/21 20:29: Lactic Acid Level 7.65*H Lactic Acid Level Laboratory Tests Test 08/19/21 20:29 Lactic Acid Level 7.65 MMOL/L (0.50-2.00) *H Progress/Results/Core Measures Suspected Sepsis SIRS Temperature: Pulse: Respiratory Rate: Laboratory Tests 08/19/21 19:52: White Blood Count 13.9H Blood Pressure / Mean: 08/19/21 20:29: Lactic Acid Level 7.65*H Laboratory Tests 08/19/21 19:52: Creatinine 0.82, INR Comment 1.1, Platelet Count 423H, Total Bilirubin 0.2 Results/Orders Lab Results Laboratory Tests Test 08/19/21 19:52 08/19/21 20:10 08/19/21 20:29 08/19/21 20:45 Range/Units White Blood Count 13.9 H 4.3-11.0 10^3/uL Red Blood Count 3.88 3.80-5.11 10^6/uL Hemoglobin 8.7 L 11.5-16.0 g/dL Hematocrit 31 L 35-52 % Mean Corpuscular Volume 79 L 80-99 fL Mean Corpuscular Hemoglobin 22 L 25-34 pg Mean Corpuscular Hemoglobin Concent 28 L 32-36 g/dL Red Cell Distribution Width 19.7 H 10.0-14.5 % Platelet Count 423 H 130-400 10^3/uL Mean Platelet Volume 8.6 L 9.0-12.2 fL Immature Granulocyte % (Auto) 0 % Neutrophils (%) (Auto) 36 L 42-75 % Lymphocytes (%) (Auto) 58 H 12-44 % Monocytes (%) (Auto) 4 0-12 % Eosinophils (%) (Auto) 1 0-10 % Basophils (%) (Auto) 0 0-10 % Neutrophils # (Auto) 4.9 1.8-7.8 X 10^3 Lymphocytes # (Auto) 8.1 H 1.0-4.0 X 10^3 Monocytes # (Auto) 0.6 0.0-1.0 X 10^3 Eosinophils # (Auto) 0.1 0.0-0.3 10^3/uL Basophils # (Auto) 0.1 0.0-0.1 10^3/uL Immature Granulocyte # (Auto) 0.1 0.0-0.1 10^3/uL Prothrombin Time 14.2 12.2-14.7 SEC INR Comment 1.1 0.8-1.4 Activated Partial Thromboplast Time 32 24-35 SEC D-Dimer 1.78 H 0.00-0.49 UG/ML Sodium Level 132 L 135-145 MMOL/L Potassium Level 4.2 3.6-5.0 MMOL/L Chloride Level 98 98-107 MMOL/L Carbon Dioxide Level 10 L 21-32 MMOL/L Anion Gap 24 H 5-14 MMOL/L Blood Urea Nitrogen 15 7-18 MG/DL Creatinine 0.82 0.60-1.30 MG/DL Estimat Glomerular Filtration Rate 80 BUN/Creatinine Ratio 18 Glucose Level 229 H 70-105 MG/DL Calcium Level 8.8 8.5-10.1 MG/DL Corrected Calcium 9.0 8.5-10.1 MG/DL Magnesium Level 2.1 1.6-2.4 MG/DL Total Bilirubin 0.2 0.1-1.0 MG/DL Aspartate Amino Transf (AST/SGOT) 26 5-34 U/L Alanine Aminotransferase (ALT/SGPT) 17 0-55 U/L Alkaline Phosphatase 130 40-136 U/L Troponin I < 0.30 <0.30 NG/ML Total Protein 7.8 6.4-8.2 GM/DL Albumin 3.7 3.2-4.5 GM/DL Blood Gas Puncture Site RIGHT RADIAL RIGHT RADIAL Blood Gas Patient Temperature 36.4 36.4 Arterial Blood pH 7.23 *L 7.36 L 7.37-7.43 Arterial Blood Partial Pressure CO2 32 L 27 L 35-45 MMHG Arterial Blood Partial Pressure O2 36 *L 46 L 79-93 MMHG Arterial Blood HCO3 13 *L 15 *L 23-27 MMOL/L Arterial Blood Total CO2 14.4 L 16.1 L 21.0-31.0 MMOL/L Arterial Blood Oxygen Saturation 56 L 80 L 94-100 % Arterial Blood Base Excess -13.0 L -8.7 L -2.5-2.5 MMOL/L John Test N/A N/A Blood Gas Ventilator Setting NA NA Blood Gas Inspired Oxygen 100 100 Lactic Acid Level 7.65 *H 0.50-2.00 MMOL/L Urine Color YELLOW Urine Clarity CLEAR Urine pH 6.0 5-9 Urine Specific [place] 1.010 L 1.016-1.022 Urine Protein NEGATIVE NEGATIVE Urine Glucose (UA) TRACE H NEGATIVE Urine Ketones NEGATIVE NEGATIVE Urine Nitrite NEGATIVE NEGATIVE Urine Bilirubin NEGATIVE NEGATIVE Urine Urobilinogen 0.2 < = 1.0 MG/DL Urine Leukocyte Esterase NEGATIVE NEGATIVE Urine RBC (Auto) TRACE-I H NEGATIVE Urine RBC 10-25 H /HPF Urine WBC 5-10 H /HPF Urine Squamous Epithelial Cells NONE /HPF Urine Crystals NONE /LPF Urine Bacteria TRACE /HPF Urine Casts PRESENT /LPF Urine Granular Casts 0-2 H /LPF Urine Coarse Granular Casts 2-5 H /LPF Urine Mucus NEGATIVE /LPF Urine Culture Indicated YES Urine Opiates Screen NEGATIVE NEGATIVE Urine Oxycodone Screen NEGATIVE NEGATIVE Urine Methadone Screen NEGATIVE NEGATIVE Urine Propoxyphene Screen NEGATIVE NEGATIVE Urine Barbiturates Screen NEGATIVE NEGATIVE Ur Tricyclic Antidepressants Screen NEGATIVE NEGATIVE Urine Phencyclidine Screen NEGATIVE NEGATIVE Urine Amphetamines Screen NEGATIVE NEGATIVE Urine Methamphetamines Screen NEGATIVE NEGATIVE Urine Benzodiazepines Screen NEGATIVE NEGATIVE Urine Cocaine Screen NEGATIVE NEGATIVE Urine Cannabinoids Screen NN NEGATIVE My Orders Orders - SYDNEY ALONSO MD Chest 1 View Ap/Pa Only (08/19/21 19:50) Furosemide Injection (Lasix Injection) (08/19/21 20:00) Albuterol/Ipra Inhalation Soln (Duoneb I (08/19/21 20:00) Svn Small Volume Nebulizer (08/19/21 19:53) Cbc With Automated Diff (08/19/21 19:53) Comprehensive Metabolic Panel (08/19/21 19:53) Fibrin Degradation Products (08/19/21 19:53) Drug Screen Stat (Urine) (08/19/21 19:53) Magnesium (08/19/21:53) Protime With Inr (08/19/21:53) Partial Thromboplastin Time (08/19/21 19:53) Ua Culture If Indicated (08/19/21:53) Troponin I Fs (08/19/21:53) Ekg Tracing (08/19/21:54) O2 (08/19/21 19:54) Ed Iv/Invasive Line Start (08/19/21 19:54) Monitor-Rhythm Ecg Trace Only (08/19/21 19:54) Methylprednisolone Sod Succ (Solu-Medrol (08/19/21 20:00) Ed Admission (Communication) (08/19/21 20:11) Ceftriaxone 1 Gm Pre-Mix (Rocephin 1 Gm (08/19/21 20:15) Azithromycin Injection (Zithromax Inject (08/19/21 20:15) Blood Culture (08/19/21 20:12) Lactic Acid Analyzer (08/19/21 20:12) Albuterol/Ipra Inhalation Soln (Duoneb I (08/19/21 20:30) Svn Small Volume Nebulizer (08/19/21 20:20) Arterial Blood Gas (08/19/21 20:10) Enoxaparin Injection (Lovenox Injection) (08/19/21 20:30) Ed Iv/Invasive Line Start (08/19/21 20:35) Ns Iv 1000 Ml (Sodium Chloride 0.9%) (08/19/21 20:45) Albuterol/Ipra Inhalation Soln (Duoneb I (08/19/21 20:45) Arterial Blood Gas (08/19/21 20:47) Urine Culture (08/19/21 20:45) Arterial Blood Gas (08/19/21 20:45) [place] Cath (08/19/21 21:12) Medications Given in ED Current Medications Medications Dose Ordered Sig/Faustino Route Start Time Stop Time Status Last Admin Dose Admin Albuterol/ Ipratropium 3 ml ONCE ONCE INH 08/19/21 20:00 08/19/21 20:01 DC 08/19/21 20:03 3 ML Albuterol/ Ipratropium 3 ml ONCE ONCE INH 08/19/21 20:30 08/19/21 20:31 DC 08/19/21 20:23 3 ML Albuterol/ Ipratropium 3 ml ONCE ONCE INH 08/19/21 20:45 08/19/21 20:46 DC 08/19/21 20:48 3 ML Azithromycin 500 mg/Sodium Chloride 255 ml @ 250 mls/hr ONCE ONCE IV 08/19/21 20:15 08/19/21 21:16 DC 08/19/21 20:28 250 MLS/HR Ceftriaxone Sodium/Dextrose 50 ml @ 100 mls/hr ONCE ONCE IV 08/19/21 20:15 08/19/21 20:44 DC 08/19/21 20:28 100 MLS/HR Enoxaparin Sodium 60 mg ONCE ONCE SC 08/19/21 20:30 08/19/21 20:31 DC 08/19/21 20:33 60 MG Furosemide 40 mg ONCE ONCE IVP 08/19/21 20:00 08/19/21 20:01 DC 08/19/21 20:02 40 MG Methylprednisolone Sodium Succinate 125 mg ONCE ONCE IVP 08/19/21 20:00 08/19/21 20:01 DC 08/19/21 20:02 125 MG Vital Signs/I&O 08/19/21 08/19/21 08/19/21 19:50 20:21 21:06 Temp 36.4 Pulse 125 102 Resp 26 24 B/P (MAP) 185/88 (120) 109/48 Pulse Ox 100 90 97 O2 Delivery Non Rebreather NIV Bilevel NIV Bilevel 08/20/21 00:00 Intake Total 50 ml Balance 50 ml Capillary Refill : Progress Note : Progress Note 1. ACUTE COPD EXACERBATION: ACUTE HOPXIC FAILURE - Pt was brought in on a nonrebreather and saturation dropping to the 70's. Switched pt to BiPAP and gave Duo neb x3, Solumedrol 125 mg iv, in case of possibility of flash pulmonary edema and gave Lasix 40 mg IV, normal saline IV fluids - Pt improved to 90% O2 sat by the time EMS got here. Emergency transfer to [place] ICU. Called Dr Christensen who accepted. Will need E-icu services once there. - At time of transfer to [place], pt's saturations came up to 90% and py had improved, emergenct transfer to [place] ICU. 2. SEPSIS: BILATERAL PNEUMONIA - CXR shows infiltrates greater on the right - Lactate was > 7 - NS IVF bolus - Ceftriaxone 1gm and Azithro 500mg given STAT in ER 3. ELEVATED D-DIMER: - D-dimer os elevated. - CTA CHEST needed once pt gets to [place] - Preemptive Lovenox given in ER Diagnostic Imaging Diagonstic Imaging: Xray Plain Films/CT/US/NM/MRI: chest Comments [facility]. [place], [place] NAME: JEY BURCIAGA [facility] REC#: [id number] PT STATUS: REG ER : 1955 PHYSICIAN: SYDNEY ALONSO MD ADMIT DATE: 08/19/21/ER FS Signed Date of Exam:08/19/21 CHEST 1 VIEW AP/PA ONLY INDICATION: Shortness of breath. EXAMINATION: Portable chest at 7:53 PM. There is interstitial infiltrate in the lungs that appears be worse on the right than on the left but new compared to prior exam dated 07/31/2020. There are no effusions or pneumothoraces. IMPRESSION: Bilateral interstitial infiltrates, worse on the right than on the left. Dictated by: Dictated on workstation # [id number] Dict: 08/19/212113 Trans: 08/19/212122 [facility] [id number] Interpreted by: BRET NAIR MD Electronically signed by: BRET NAIR MD 08/19/212122 Departure Communication (Admissions) Time/Spoke to Admitting Phy: 20:[address] Christensen and admission to ICU Impression Primary Impression: COPD with exacerbation Additional Impressions: Acute and chronic respiratory failure with hypoxia Sepsis Bilateral pneumonia Disposition: HOME, SELF-CARE Condition: Critical Admissions Decision to Admit Reason: Admit from ER (General) Decision to Admit/Date: Aug 20, 2021 Time/Decision to Admit Time: 21:08 Departure-Patient Inst. Referrals: [facility] (PCP/Family) Primary Care Physician SYDNEY ALONSO MD Aug 19, 2021 20:10
[2021-08-19 20:13] LABS: FIBRIN DEGRADATION PRODUCTS 1.78 UG/ML (0.00-0.49)
[2021-08-19] MEDS ORDERED: cefTRIAXone 1 GM PRE-MIX 50 ML IV ONE (20:15)
[2021-08-19] MEDS ORDERED: AZITHROMYCIN INJECTION 500 MG in NS (IVPB) 250 ML IV ONE (20:15)
[2021-08-19 20:20] LABS: ALKALINE PHOSPHATASE 130 U/L (40-136); BILIRUBIN,TOTAL 0.2 MG/DL (0.1-1.0); BUN/CREATININE RATIO 18; CALCIUM 8.8 MG/DL (8.5-10.1); CARBON DIOXIDE 10 MMOL/L (21-32); CHLORIDE 98 MMOL/L (98-107); CREATININE SERUM 0.82 MG/DL (0.60-1.30); GFR ESTIMATED 80; GLUCOSE 229 MG/DL (70-105); MAGNESIUM 2.1 MG/DL (1.6-2.4); POTASSIUM 4.2 MMOL/L (3.6-5.0); SODIUM 132 MMOL/L (135-145)
[2021-08-19 20:21] LABS: ALANINE AMINOTRANSFERASE 17 U/L (0-55); ALBUMIN 3.7 GM/DL (3.2-4.5); TOTAL PROTEIN 7.8 GM/DL (6.4-8.2)
[2021-08-19 20:22] LABS: ABG PCO2 32 MMHG (35-45); ABG PH 7.23 (7.37-7.43); ABG PO2 36 MMHG (79-93)
[2021-08-19 20:23] LABS: ABG OXYGEN SATURATION 56 % (94-100); ABG TCO2 14.4 MMOL/L (21.0-31.0); PATIENT TEMP 36.4
[2021-08-19 20:24] LABS: INSPIRED O2 100
[2021-08-19] MEDS ORDERED: ENOXAPARIN 60 MG/0.6 ML (LOVENOX) SYR SC ONE (20:30)
[2021-08-19] MEDS ORDERED: NS IV 1000 ML 1,000 ML IV SCH (20:45)
[2021-08-19 20:46] LABS: BILIRUBIN,URINE NEGATIVE (NEGATIVE); CLARITY,URINE CLEAR; COLOR,URINE YELLOW; GLUCOSE, URINE (UA) TRACE (NEGATIVE); KETONES,URINE NEGATIVE (NEGATIVE); LEUKOCYTE ESTERASE ,URINE NEGATIVE (NEGATIVE); NITRITE,URINE NEGATIVE (NEGATIVE); PROTEIN,URINE NEGATIVE (NEGATIVE)
[2021-08-19 20:52] LABS: BACTERIA,URINE TRACE /HPF; GRANULAR CASTS,URINE 0-2 /LPF
[2021-08-19 20:54] LABS: AMPHETAMINE SCREEN, URINE NEGATIVE (NEGATIVE); BARBITURATE SCREEN URINE NEGATIVE (NEGATIVE); BENZODIAZEPINES SCREEN URINE NEGATIVE (NEGATIVE); CANNABINOID SCREEN, URINE NN (NEGATIVE); COCAINE SCREEN URINE NEGATIVE (NEGATIVE); METHADONE STAT NEGATIVE (NEGATIVE); OPIATE SCREEN URINE NEGATIVE (NEGATIVE); OXYCODONE STAT NEGATIVE (NEGATIVE); TRICYCLIC ANTIDEPRESSANTS SCRE NEGATIVE (NEGATIVE)
[2021-08-19 20:55] LABS: PROPOXYPHENE STAT NEGATIVE (NEGATIVE)
[2021-08-19 20:56] LABS: ABG PH 7.36 (7.37-7.43)
[2021-08-19 20:57] LABS: ABG BASE EXCESS -8.7 MMOL/L (-2.5-2.5); ABG OXYGEN SATURATION 80 % (94-100); ABG PCO2 27 MMHG (35-45); ABG PO2 46 MMHG (79-93); ABG TCO2 16.1 MMOL/L (21.0-31.0); INSPIRED O2 100; PATIENT TEMP 36.4
--- NOTE | 2021-08-19 21:16 | Diagnostic Imaging Report ---
INDICATION: Shortness of breath. EXAMINATION: Portable chest at 7:53 PM. There is interstitial infiltrate in the lungs that appears be worse on the right than on the left but new compared to prior exam dated 07/31/2020. There are no effusions or pneumothoraces. IMPRESSION: Bilateral interstitial infiltrates, worse on the right than on the left. Dictated by: Dictated on workstation # [id number]
[2021-08-19 22:11] VITALS: BP 109/48
[2021-08-19] MEDS ORDERED: RT-ALBUTEROL/IPRATROPIUM 3 ML (DUONEB) VIAL INH PRN (22:30)
[2021-08-19 23:22] LABS: ABG BASE EXCESS -4.7 MMOL/L (-2.5-2.5); ABG OXYGEN SATURATION 91 % (94-100); ABG PCO2 36 MMHG (35-45); ABG PH 7.36 (7.37-7.43); ABG PO2 62 MMHG (79-93); ABG TCO2 21.2 MMOL/L (21.0-31.0)
[2021-08-19 23:23] LABS: ALLENS TEST POSITIVE; INSPIRED O2 30%; PATIENT TEMP 36; VENTILATOR NO
--- NOTE | 2021-08-19 23:24 | Tele-ICU Progress Note ---
Progress Note SOB with Hx of COPD. No other history available from ED notes, AC ON CHRONIC HYPOXIC AND HYPERCAPNIC RESP FAILURE cxr BILATERAL INFILTRTAES. Na 132 VSS, pt viewed on camera, no acute distress and hemodynamically stable. 1. Sepsis with PNA poa. Lactic acidosis 2. Ac /chr hypoxic resp failure 3. Ac exacerbation of COPD 4. Mild hyponatremia. Abx, Trend LA IV steroids and BD nebs, Bipap. f/u blood cultures. d/w the bedside nurse. Focused Exam Lactate Level 08/19/21 20:29: Lactic Acid Level 7.65*H 08/19/21 22:31: Height, Weight, BMI Height: 4'9.00" Weight: 100lbs. 2.0oz. 45.335456xc; 27.75 BMI Method:Stated Lactic Acid Level Laboratory Tests Test 08/19/21 20:29 08/19/21 22:31 Lactic Acid Level 7.65 MMOL/L (0.50-2.00) *H MARGARITA HELTON MD Aug 19, 2021 23:24
[2021-08-20] MEDS ORDERED: NS 100 ML (IVPB) BAG IV ONE (00:45)
[2021-08-20] MEDS ORDERED: IOHEXOL 350 MG/ML 100 ML (OMNIPAQUE 350) VIAL IV ONE (00:45)
[2021-08-20] MEDS ORDERED: HOLD METFORMIN - RECEIVED CONTRAST 20 ML VIAL IV SCH (00:45)
[2021-08-20] MEDS: CATHETER FLUSH 10 ML SYR IV PRN (01:03)
[2021-08-20] MEDS ORDERED: FUROSEMIDE 40 MG/4 ML INJ (LASIX) IVP ONE (03:15)
[2021-08-20 04:55] LABS: BASOPHILS % (AUTO) 0 % (0-10); EOSINOPHILS % (AUTO) 0 % (0-10); HEMATOCRIT 26 % (35-52); HEMOGLOBIN 7.8 g/dL (11.5-16.0); LYMPHOCYTES # (AUTO) 1.3 10^3/uL (1.0-4.0); LYMPHOCYTES % (AUTO) 13 % (12-44); MEAN CORPUSCULAR HEMOGLOBIN 22 pg (25-34); MEAN CORPUSCULAR HGB CONC 30 g/dL (32-36); MEAN CORPUSCULAR VOLUME 75 fL (80-99); MEAN PLATELET VOLUME 9.1 fL (9.0-12.2); MONOCYTES # (AUTO) 0.3 10^3/uL (0.0-1.0); MONOCYTES % (AUTO) 3 % (0-12); NEUTROPHILS # (AUTO) 8.3 10^3/uL (1.8-7.8); NEUTROPHILS % (AUTO) 83 % (42-75); PLATELET COUNT 389 10^3/uL (130-400)
[2021-08-20 05:10] LABS: ALBUMIN 3.5 GM/DL (3.2-4.5); POTASSIUM 4.4 MMOL/L (3.6-5.0)
[2021-08-20 05:11] LABS: CALCIUM 8.2 MG/DL (8.5-10.1)
[2021-08-20 05:13] LABS: TOTAL PROTEIN 7.3 GM/DL (6.4-8.2)
[2021-08-20 05:14] LABS: BILIRUBIN,TOTAL 0.3 MG/DL (0.1-1.0)
[2021-08-20 05:16] LABS: CREATININE SERUM 0.82 MG/DL (0.60-1.30); PHOSPHORUS 3.6 MG/DL (2.3-4.7)
[2021-08-20 05:19] LABS: MAGNESIUM 1.8 MG/DL (1.6-2.4)
[2021-08-20] MEDS: methylPREDNISolone 40 MG/ML (Solu-MEDROL) VIAL IV SCH ×3 (05:42→21:09)
[2021-08-20] MEDS: D5 NS 1000 ML IV SOLUTION 1,000 ML IV SCH (05:43)
--- NOTE | 2021-08-20 06:15 | Diagnostic Imaging Report ---
PROCEDURE: CT angiography of the chest with contrast. TECHNIQUE: Multiple contiguous axial images were obtained through the chest after uneventful bolus administration of intravenous contrast. 3D reconstructed CTA MIP acquisitions were also performed. Auto Exposure Controls were utilized during the CT exam to meet ALARA standards for radiation dose reduction. INDICATION: Cough and shortness of breath. FINDINGS: Heart is prominent with coronary artery disease. No pericardial effusion is seen. Pulmonary arteries and aorta are normal. There is a slightly enlarged 8 mm pulmonary nodule in the lingula. Follow-up per Fleischner Criteria. Infiltrates are seen bilaterally. Centrilobular emphysema is present. There is a focal area consolidation in the right lung base posteriorly. There is a small hiatal hernia. Osseous structures are age-appropriate. Upper abdominal solid organs are unremarkable. IMPRESSION: 1. Cardiac enlargement with coronary artery disease. 2. No pulmonary embolism identified. 3. 8 mm nodule lingula. Follow-up per Fleischner Criteria. 4. Pulmonary infiltrates with consolidation right base suspecting pneumonia. Follow-up recommended. Agree with preliminary report. Dictated by: Dictated on workstation # [id number]
[2021-08-20] MEDS ORDERED: inSUlin ASPART (NovoLOG) 1 UNIT/0.01 ML (CHARGE PER UNIT) SC SCH (07:00)
[2021-08-20] MEDS: RT-ALBUTEROL/IPRATROPIUM 3 ML (DUONEB) VIAL INH SCH ×6 (07:05→22:50)
[2021-08-20] MEDS ORDERED: methylPREDNISolone 125 MG (Solu-MEDROL) VIAL IVP SCH (09:00)
--- NOTE | 2021-08-20 09:28 | Tele-ICU Progress Note ---
Subjective Date Seen by a Provider: Aug 20, 2021 Time Seen by a Provider: 09:25 Subjective/Events-last exam (Tele-ICU Physician , Progress Note ) Available chart/ vitals / labs / Images reviewed Video assessment done using teleICU camera, rest of exam as per RN Discussed with RN , EXAM PER RN Events overnight : Afebrile FiO2 - 30% I/O = + Drips: d5 40 Pressors: , hemodynamically stable Consultants: Hospital course: (08/19) 66/F- Acute copd exacerbation, bipap, extensive copd/cv hx on home O2.--BIPAP. A/P Acute resp failure ( PNA and AECOPD, no PE on CT ) - BIPAP 02/19 r 19 tv 600 30 % - - will try off NIPPV , consider to cont at night AECOPD - cont steroids IV RLL PNA - cont abx - NEG flu , covid Pulm nodule - f/up outpt as per PCP follow up BS on steroids Lines : (Central Line Necessity Reviewed) [place]: OG: Nutrition: Analgesia: Anxiety/ delirium VTE Prophylaxis: hep sq Stress Ulcer Prophylaxis: H2bl - ON STEROIDS Plans in collaboration with bedside consultants and IM MDs. Discussed with RN to reach out if any questions or concerns A total of 31 minutes of critical care time was devoted to this patient today, required to treat and/or prevent further deterioration of critical care condition ( as above) . Sepsis Event Evaluation Height, Weight, BMI Height: 4'9.00" Weight: 100lbs. 2.0oz. 45.230160jf; 27.75 BMI Method:Stated Focused Exam Lactate Level 08/19/21 20:29: Lactic Acid Level 7.65*H 08/19/21 22:31: Lactic Acid Level 4.48*H 08/20/21 00:33: Lactic Acid Level 1.97 Exam Exam Patient acknowledged, consented, and participated in this virtual visit which was conducted using real time audio/video Vital Signs Date Time Temp Pulse Resp B/P (MAP) Pulse Ox O2 Delivery O2 Flow Rate FiO2 08/20/21 08:00 83 10 126/60 89 NIV Bilevel 30.00 08/20/21 07:47 82 08/20/21 07:00 75 11 131/80 98 NIV Bilevel 30.00 08/20/21 06:00 78 14 124/70 93 NIV Bilevel 30.00 08/20/21 05:00 76 11 119/70 88 NIV Bilevel 30.00 08/20/21 04:00 95 NIV CPAP 30 08/20/21 04:00 97 17 141/78 97 NIV Bilevel 30.00 08/20/21 03:00 90 17 114/82 91 NIV Bilevel 30.00 08/20/21 02:00 98 15 116/66 95 NIV Bilevel 30.00 08/20/21 01:45 110 24 130/89 99 NIV Bilevel 30.00 08/20/21 01:30 96 11 112/64 99 NIV Bilevel 30.00 08/20/21 01:15 96 16 122/74 96 NIV Bilevel 30.00 08/20/21 01:00 96 15 118/71 94 NIV Bilevel 30.00 08/20/21 01:00 96 08/20/21 00:45 98 11 112/50 97 NIV Bilevel 30.00 08/20/21 00:38 96 14 111/71 96 NIV Bilevel 30.00 08/19/21 23:59 95 NIV CPAP 30 08/19/21 23:08 94 NIV CPAP 30 08/19/21 22:11 36.4 102 97 30 08/19/21 21:35 107 08/19/21 21:06 102 24 109/48 97 NIV Bilevel 08/19/21 20:21 90 NIV Bilevel 08/19/21 19:50 36.4 125 26 185/88 (120) 100 Non Rebreather I & O 08/20/21 07:00 Intake Total 1305 ml Output Total 2200 ml Balance -895 ml Height & Weight Height: 4'9.00" Weight: 100lbs. 2.0oz. 45.253597oz; 27.75 BMI Method:Stated General Appearance: No Apparent Distress Capillary Refill: Less Than 3 Seconds Gastrointestinal: normal bowel sounds, non tender, soft Results Lab Laboratory Tests 08/19/21 19:52 08/20/21 04:35 Assessment/Plan Assessment/Plan GILMAR KEYES MD Aug 20, 2021 09:28
[2021-08-20] MEDS: inSUlin ASPART (NovoLOG) 1 UNIT/0.01 ML (CHARGE PER UNIT) SC SCH ×3 (11:00→21:32)
[2021-08-20] MEDS: FAMOTIDINE 20 MG (PEPCID) TABLET PO SCH ×2 (11:12→21:12)
[2021-08-20] MEDS ORDERED: SUVO5TAB2 PO (14:39)
[2021-08-20] MEDS ORDERED: CYPR4TAB41 PO (14:42)
[2021-08-20] MEDS ORDERED: MONT-40 PO (14:42)
[2021-08-20] MEDS ORDERED: POTA-179 PO (14:43)
[2021-08-20] MEDS ORDERED: FURO40TA4 PO (14:43)
[2021-08-20] MEDS ORDERED: FLUT1DIS27 IH (14:44)
[2021-08-20] MEDS ORDERED: TIOT18CA2 IH (14:45)
[2021-08-20] MEDS ORDERED: ALBU2.5V4 INH (14:47)
[2021-08-20] MEDS ORDERED: AZITHROMYCIN INJECTION 500 MG in NS (IVPB) 250 ML IV SCH (21:00)
[2021-08-20] MEDS: cefTRIAXone 1 GM PRE-MIX 50 ML IV SCH (21:09)
--- NOTE | 2021-08-20 22:14 | History & Physical ---
HPI History of Present Illness: 66 yo F with known COPD and baseline oxygen requirement that presented to the ER with acute shortness of breath after riding in the car all day long. Niece states that they went to see her brother [facility] [place]. Patient did well all day long and did not have any complaints until she was trying to get back into the house after being in the car and became very short of breath. They increased her oxygen to 4L NC and she did not improve and then they called EMS. Patient has remote h/o CAD with 2 stents placed. She denies any chest pain or palpitations. She denies any sick contacts or any fever or chills. Source: patient, family (Niece) Exam Limitations: no limitations Date seen by provider: Aug 20, 2021 Time Seen by Provider: 09:45 Attending Physician [facility] PCP Admitting Physician: Martinez Christensen MD Attending Physician: Bandar Serrano MD Consult Date of Admission Aug 19, 2021 at 21:28 Home Medications Home Medications Reviewed patient Home Medication Reconciliation performed by pharmacy medication reconciliations aircraft maintenance technician and/or nursing. Patients Allergies have been reviewed. Allergies Coded Allergies: mirtazapine (Verified Adverse Reaction, Unknown, horrible nightmares, 07/24/18) BAY-Jqrvax-Lsonub Hx Patient Social History Smoking Status: Current Everyday Smoker 2nd Hand Smoke Exposure: No Recent Hopitalizations: No Alcohol Use?: No Tobacco type used: Cigarettes Have you traveled recently?: No Immunizations Up To Date Influenza Vaccine Up-to-Date: Yes; Up-to-Date Past Medical History COPD HTN CAD previous STEMI with PCI Heavy smoker Family Medical History Other Significan Family Hx: NC Review of Systems ([facility]) Constitutional: malaise, weakness EENTM: no symptoms reported Respiratory: dyspnea on exertion, short of breath Cardiovascular: no symptoms reported Gastrointestinal: no symptoms reported Genitourinary: no symptoms reported Musculoskeletal: no symptoms reported Skin: no symptoms reported Psychiatric/Neurological: No Symptoms Reported Reviewed Test Results Reviewed Test Results Lab Laboratory Tests Test 08/19/21 22:31 08/19/21 23:00 08/20/21 00:33 08/20/21 04:35 Range/Units Lactic Acid Level 4.48 *H 1.97 0.50-2.00 MMOL/L Blood Gas Puncture Site LEFT RADIAL Blood Gas Patient Temperature 36 Arterial Blood pH 7.36 L 7.37-7.43 Arterial Blood Partial Pressure CO2 36 35-45 MMHG Arterial Blood Partial Pressure O2 62 L 79-93 MMHG Arterial Blood HCO3 20 L 23-27 MMOL/L Arterial Blood Total CO2 21.2 21.0-31.0 MMOL/L Arterial Blood Oxygen Saturation 91 L 94-100 % Arterial Blood Base Excess -4.7 L -2.5-2.5 MMOL/L John Test POSITIVE Blood Gas Ventilator Setting NO Blood Gas Inspired Oxygen 30% White Blood Count 10.0 4.3-11.0 10^3/uL Red Blood Count 3.53 L 3.80-5.11 10^6/uL Hemoglobin 7.8 L 11.5-16.0 g/dL Hematocrit 26 L 35-52 % Mean Corpuscular Volume 75 L 80-99 fL Mean Corpuscular Hemoglobin 22 L 25-34 pg Mean Corpuscular Hemoglobin Concent 30 L 32-36 g/dL Red Cell Distribution Width 18.6 H 10.0-14.5 % Platelet Count 389 130-400 10^3/uL Mean Platelet Volume 9.1 9.0-12.2 fL Immature Granulocyte % (Auto) 1 % Neutrophils (%) (Auto) 83 H 42-75 % Lymphocytes (%) (Auto) 13 12-44 % Monocytes (%) (Auto) 3 0-12 % Eosinophils (%) (Auto) 0 0-10 % Basophils (%) (Auto) 0 0-10 % Neutrophils # (Auto) 8.3 H 1.8-7.8 10^3/uL Lymphocytes # (Auto) 1.3 1.0-4.0 10^3/uL Monocytes # (Auto) 0.3 0.0-1.0 10^3/uL Eosinophils # (Auto) 0.0 0.0-0.3 10^3/uL Basophils # (Auto) 0.0 0.0-0.1 10^3/uL Immature Granulocyte # (Auto) 0.1 0.0-0.1 10^3/uL Sodium Level 133 L 135-145 MMOL/L Potassium Level 4.4 3.6-5.0 MMOL/L Chloride Level 101 98-107 MMOL/L Carbon Dioxide Level 18 L 21-32 MMOL/L Anion Gap 14 5-14 MMOL/L Blood Urea Nitrogen 19 H 7-18 MG/DL Creatinine 0.82 0.60-1.30 MG/DL Estimat Glomerular Filtration Rate 80 BUN/Creatinine Ratio 23 Glucose Level 132 H 70-105 MG/DL Calcium Level 8.2 L 8.5-10.1 MG/DL Corrected Calcium 8.6 8.5-10.1 MG/DL Phosphorus Level 3.6 2.3-4.7 MG/DL Magnesium Level 1.8 1.6-2.4 MG/DL Total Bilirubin 0.3 0.1-1.0 MG/DL Aspartate Amino Transf (AST/SGOT) 40 H 5-34 U/L Alanine Aminotransferase (ALT/SGPT) 23 0-55 U/L Alkaline Phosphatase 104 40-136 U/L Total Protein 7.3 6.4-8.2 GM/DL Albumin 3.5 3.2-4.5 GM/DL Test 08/20/21 16:14 08/20/21 20:16 08/20/21 21:14 Range/Units Glucometer 155 H 212 H 170 H 70-110 MG/DL Physical Exam-([facility]) Physical Exam Vital Signs VS - Last 72 Hours, by Label 08/19/21 08/19/21 08/19/21 08/19/21 19:50 20:21 21:06 21:35 Temp 36.4 Pulse 125 102 107 Resp 26 24 B/P (MAP) 185/88 (120) 109/48 Pulse Ox 100 90 97 O2 Delivery Non Rebreather NIV Bilevel NIV Bilevel 08/19/21 08/19/21 08/19/21 08/20/21 22:11 23:08 23:59 00:38 Temp 36.4 Pulse 102 96 Resp 14 B/P (MAP) 111/71 Pulse Ox 97 94 95 96 O2 Delivery NIV CPAP NIV CPAP NIV Bilevel O2 Flow Rate 30.00 FiO2 30 30 30 08/20/21 08/20/21 08/20/21 08/20/21 00:45 01:00 01:00 01:15 Pulse 98 96 96 96 Resp 11 15 16 B/P (MAP) 112/50 118/71 122/74 Pulse Ox 97 94 96 O2 Delivery NIV Bilevel NIV Bilevel NIV Bilevel O2 Flow Rate 30.00 30.00 30.00 08/20/21 08/20/21 08/20/2122 01:30 01:45 02:00 03:00 Pulse 96 110 98 90 Resp 11 24 15 17 B/P (MAP) 112/64 130/89 116/66 114/82 Pulse Ox 99 99 95 91 O2 Delivery NIV Bilevel NIV Bilevel NIV Bilevel NIV Bilevel O2 Flow Rate 30.00 30.00 30.00 30.00 08/20/21 08/20/21 08/20/21 08/20/21 04:00 04:00 05:00 06:00 Pulse 97 76 78 Resp 17 11 14 B/P (MAP) 141/78 119/70 124/70 Pulse Ox 97 95 88 93 O2 Delivery NIV Bilevel NIV CPAP NIV Bilevel NIV Bilevel O2 Flow Rate 30.00 30.00 30.00 FiO2 30 08/20/21 08/20/21 08/20/21 08/20/21 07:00 07:47 08:00 08:00 Pulse 75 82 83 Resp 11 10 B/P (MAP) 131/80 126/60 Pulse Ox 98 89 95 O2 Delivery NIV Bilevel NIV Bilevel NIV Bilevel O2 Flow Rate 30.00 30.00 FiO2 30 08/20/21 08/20/21 08/20/21 08/20/21 08:00 09:00 10:40 11:02 Temp 35.7 Pulse 93 Resp 21 B/P (MAP) 140/77 Pulse Ox 99 99 O2 Delivery NIV Bilevel NIV Bilevel Nasal Cannula O2 Flow Rate 30.00 28.00 2.00 08/20/21 08/20/21 08/20/21 08/20/21 11:14 12:00 12:00 13:00 Temp 36.1 Pulse 86 97 Resp 16 18 B/P (MAP) 112/57 121/63 Pulse Ox 95 99 99 O2 Delivery Nasal Cannula Nasal Cannula Nasal Cannula O2 Flow Rate 1.00 2.00 2.00 08/20/21 08/20/21 08/20/21 08/20/21 13:16 13:49 14:00 14:02 Pulse 98 91 Resp 19 B/P (MAP) 101/48 Pulse Ox 99 99 O2 Delivery Nasal Cannula Nasal Cannula Nasal Cannula O2 Flow Rate 1.00 2.00 1.00 08/20/21 08/20/21 08/20/21 08/20/21 14:12 15:00 15:29 16:00 Pulse 91 Resp 12 B/P (MAP) 116/62 Pulse Ox 96 95 O2 Delivery NIV Bilevel NIV Bilevel Nasal Cannula Nasal Cannula O2 Flow Rate 28.00 28.00 2.00 1.00 08/20/21 08/20/21 08/20/21 08/20/21 16:00 16:00 17:00 18:00 Temp 36.5 Pulse 92 96 94 Resp 13 14 14 B/P (MAP) 108/63 105/57 107/59 Pulse Ox 90 94 93 O2 Delivery Nasal Cannula Nasal Cannula Nasal Cannula O2 Flow Rate 2.00 2.00 2.00 08/20/21 08/20/21 19:07 19:36 Temp 36.6 Pulse Ox 98 O2 Delivery Nasal Cannula O2 Flow Rate 2.00 Capillary Refill : Less Than 3 Seconds General Appearance: mild distress, thin HEENT: PERRL/EOMI Neck: non-tender, full range of motion, supple Respiratory: chest non-tender, no accessory muscle use, wheezing, expiration, inspiration Cardiovascular: normal peripheral pulses, regular rate, rhythm, no edema, no murmur Gastrointestinal: normal bowel sounds, non tender, soft Back: no CVA tenderness, no vertebral tenderness Extremities: normal range of motion, non-tender, normal inspection, no calf tenderness, pedal edema (2+) Neurologic/Psychiatric: mobile security specialist II-XII nml as tested, no motor/sensory deficits, alert, normal mood/affect, oriented x 3 Skin: normal color, warm/dry Assessment/Plan Assessment/Plan Admission Status: Inpatient Order (span 2 midnights) Reason for Inpatient Admission: Requiring ICU care, high risk of decompensation (1) Acute and chronic respiratory failure with hypoxia Status: Acute Assessment & Plan: - Patient admitted to ICU on bipap, will transition to NC as ABG was much improved last night, patient desires to wear bipap when resting, MAT protocol, IV steroids q8hrs, IV antibiotics (2) Sepsis Status: Resolved Assessment & Plan: - HDS, will continue to monitor VS Qualifiers: (3) Bilateral pneumonia Status: Acute Qualifiers: Qualified Codes: J18.9 - Pneumonia, unspecified organism (4) CAD (coronary artery disease) Status: Chronic Qualifiers: Qualified Codes: I25.10 - Atherosclerotic heart disease of [place] coronary artery without angina pectoris (5) COPD with exacerbation Status: Acute (6) Elevated d-dimer Status: Acute Assessment & Plan: - CTA: No PE, will transition to lovenox (7) Heavy smoker Status: Chronic (8) DVT prophylaxis Status: Chronic Assessment & Plan: - Admitted on Heparin, will transition to lovenox BANDAR SERRANO MD Aug 20, 2021 22:14
[2021-08-21] MEDS: RT-ALBUTEROL/IPRATROPIUM 3 ML (DUONEB) VIAL INH SCH ×6 (02:15→21:33)
[2021-08-21] MEDS: D5 NS 1000 ML IV SOLUTION 1,000 ML IV SCH (03:45)
[2021-08-21 05:19] LABS: BASOPHILS % (AUTO) 0 % (0-10); EOSINOPHILS % (AUTO) 0 % (0-10); HEMATOCRIT 25 % (35-52); HEMOGLOBIN 7.4 g/dL (11.5-16.0); LYMPHOCYTES # (AUTO) 1.5 10^3/uL (1.0-4.0); LYMPHOCYTES % (AUTO) 11 % (12-44); MEAN CORPUSCULAR HEMOGLOBIN 22 pg (25-34); MEAN CORPUSCULAR HGB CONC 30 g/dL (32-36); MEAN CORPUSCULAR VOLUME 75 fL (80-99); MONOCYTES # (AUTO) 0.6 10^3/uL (0.0-1.0); MONOCYTES % (AUTO) 5 % (0-12); NEUTROPHILS # (AUTO) 11.4 10^3/uL (1.8-7.8); NEUTROPHILS % (AUTO) 83 % (42-75); PLATELET COUNT 383 10^3/uL (130-400); WHITE BLOOD COUNT 13.7 10^3/uL (4.3-11.0)
[2021-08-21 05:28] LABS: ALBUMIN 3.4 GM/DL (3.2-4.5); POTASSIUM 4.1 MMOL/L (3.6-5.0)
[2021-08-21 05:29] LABS: CALCIUM 8.4 MG/DL (8.5-10.1)
[2021-08-21 05:30] LABS: TOTAL PROTEIN 7.1 GM/DL (6.4-8.2)
[2021-08-21 05:32] LABS: BILIRUBIN,TOTAL 0.4 MG/DL (0.1-1.0)
[2021-08-21 05:33] LABS: PHOSPHORUS 3.1 MG/DL (2.3-4.7)
[2021-08-21 05:34] LABS: CREATININE SERUM 0.75 MG/DL (0.60-1.30)
[2021-08-21 05:36] LABS: MAGNESIUM 2.1 MG/DL (1.6-2.4)
[2021-08-21] MEDS: inSUlin ASPART (NovoLOG) 1 UNIT/0.01 ML (CHARGE PER UNIT) SC SCH ×4 (06:33→21:56)
[2021-08-21] MEDS: methylPREDNISolone 40 MG/ML (Solu-MEDROL) VIAL IV SCH ×3 (06:38→21:54)
[2021-08-21 08:43] VITALS: BP 159/78
[2021-08-21] MEDS: FAMOTIDINE 20 MG (PEPCID) TABLET PO SCH ×2 (10:03→20:34)
--- NOTE | 2021-08-21 11:48 | Progress Note ---
Subjective Subjective/Events-last exam Patient states that she is feeling much better this AM. Slept with bipap on for the night and states that she got the best sleep she has had in many years. Tolerating PO diet Review of Systems General: Fatigue Pulmonary: Dyspnea Cardiovascular: No: Chest Pain, Palpitations Gastrointestinal: No: Nausea, Vomiting, Abdominal Pain, Diarrhea, Constipation Neurological: Weakness Focused Exam Lactate Level 08/19/21 20:29: Lactic Acid Level 7.65*H 08/19/21 22:31: Lactic Acid Level 4.48*H 08/20/21 00:33: Lactic Acid Level 1.97 Objective Exam Last Set of Vital Signs Vital Signs Date Time Temp Pulse Resp B/P (MAP) Pulse Ox O2 Delivery O2 Flow Rate FiO2 08/21/21 10:46 93 Nasal Cannula 2.00 08/21/21 08:43 36.2 102 22 159/78 (105) 08/20/21 08:00 30 Capillary Refill : Less Than 3 Seconds I&O Intake and Output 08/21/21 00:00 Intake Total 1050 ml Output Total 2600 ml Balance -1550 ml Intake Oral 1050 ml Output Urine Total 2600 ml General: Alert, Oriented X3, Mild Distress (with activity) Lungs: Other (diffuse wheezing, normal work of breathing at rest) Heart: Regular Rate, No Murmurs Extremities: No Tenderness/Swelling Neuro: Normal Speech Psych/Mental Status: Mental Status NL, Mood NL Results/Procedures Lab Laboratory Tests 08/20/21 16:14: Glucometer 155H 08/20/21 20:16: Glucometer 212H 08/20/21 21:14: Glucometer 170H 08/21/21 05:08: White Blood Count 13.7H, Red Blood Count 3.33L, Hemoglobin 7.4L, Hematocrit 25L, Mean Corpuscular Volume 75L, Mean Corpuscular Hemoglobin 22L, Mean Corpuscular Hemoglobin Concent 30L, Red Cell Distribution Width 18.7H, Platelet Count 383, Mean Platelet Volume 9.0, Immature Granulocyte % (Auto) 1, Neutrophils (%) (Auto) 83H, Lymphocytes (%) (Auto) 11L, Monocytes (%) (Auto) 5, Eosinophils (%) (Auto) 0, Basophils (%) (Auto) 0, Neutrophils # (Auto) 11.4H, Lymphocytes # (Auto) 1.5, Monocytes # (Auto) 0.6, Eosinophils # (Auto) 0.0, Basophils # (Auto) 0.0, Immature Granulocyte # (Auto) 0.1, Sodium Level 134L, Potassium Level 4.1, Chloride Level 102, Carbon Dioxide Level 19L, Anion Gap 13, Blood Urea Nitrogen 21H, Creatinine 0.75, Estimat Glomerular Filtration Rate 89, BUN/Creatinine Ratio 28, Glucose Level 147H, Calcium Level 8.4L, Corrected Calcium 8.9, Phosphorus Level 3.1, Magnesium Level 2.1, Total Bilirubin 0.4, Aspartate Amino Transf (AST/SGOT) 37H, Alanine Aminotransferase (ALT/SGPT) 25, Alkaline Phosphatase 85, Total Protein 7.1, Albumin 3.4 08/21/21 06:33: Glucometer 129H 08/21/21 11:21: Glucometer 211H Microbiology 08/19/21 MRSA Screen - Final, Complete MRSA not isolated 08/19/21 Urine Culture - Final, Complete NO GROWTH 08/19/21 Blood Culture - Preliminary, Resulted No growth Assessment/Plan Assessment/Plan (1) Acute and chronic respiratory failure with hypoxia Status: Acute Assessment & Plan: - Patient admitted to ICU on bipap, will transition to NC as ABG was much improved last night, patient desires to wear bipap when resting, MAT protocol, IV steroids q8hrs, IV antibiotics 08/21: Improving, patient is on home oxygen, will continue to monitor (2) Microcytic anemia Assessment & Plan: 08/21: Fe studies pending, will replace fe if low, patient states that she had colonoscopy several years ago with Dr Bains w/o any removal of polyps (3) Sepsis Status: Resolved Assessment & Plan: - HDS, will continue to monitor VS Qualifiers: (4) Bilateral pneumonia Status: Acute Qualifiers: Qualified Codes: J18.9 - Pneumonia, unspecified organism (5) CAD (coronary artery disease) Status: Chronic Qualifiers: Qualified Codes: I25.10 - Atherosclerotic heart disease of [place] coronary artery without angina pectoris (6) COPD with exacerbation Status: Acute (7) Elevated d-dimer Status: Acute Assessment & Plan: - CTA: No PE, will transition to lovenox (8) Heavy smoker Status: Chronic (9) Basal cell carcinoma (BCC) of dorsum of nose Status: Acute Assessment & Plan: 6/7: On going treatment in [place] (10) DVT prophylaxis Status: Chronic Assessment & Plan: - Admitted on Heparin, will transition to lovenox (11) Physical debility Status: Acute Assessment & Plan: 08/21: PT/OT encourage BANDAR BERRY MD Aug 21, 2021 11:48
[2021-08-21 12:20] VITALS: BP 125/58
--- NOTE | 2021-08-21 13:43 | Physical Therapy Evaluation ---
PT Evaluation-General Medical Diagnosis Admission Date Aug 19, 2021 at 21:28 Medical Diagnosis: respiratory failure with hypoxia Onset Date: Aug 19, 2021 Therapy Diagnosis Therapy Diagnosis: debility/decreased pulmonary function Height/Weight Height (Feet): 4 Height (Inches): 9.00 Weight (Pounds): 100 Weight (Ounces): 2.0 Precautions Precautions/Isolations: Fall Prevention, Standard Precautions Referral Physician: Maggie Reason for Referral: Evaluation/Treatment Medical History Pertinent Medical History: CAD, COPD, HTN, NH, Smoking Current History ER secondary to sudden onset SOA Reviewed History: Yes Social History Home: Single Level Prior Prior Level of Function SCALE: Activities may be completed with or without assistive devices. 7-Vicutyuxhe-fpwyowi completes the activity by him/herself with no assistance from a helper. 5-Set-up or Clean-up Assistance-helper sets up or cleans up; patient completes activity. [place] assists only prior to or following the activity. 4-Supervision or Touching Assistance-helper provides verbal cues and/or touching/steadying and/or contact guard assistance as patient completes activity. Assistance may be provided throughout the activity or intermittently. 3-Partial/Moderate Assistance-helper does LESS THAN HALF the effort. [place] lifts, holds or supports trunk or limbs, but provides less than half the effort. 2-Substantial/Maximal Assistance-helper does MORE THAN HALF the effort. [place] lifts or holds trunk or limbs and provides more than half the effort. 5-Hqmvftjew-ocwitm does ALL the effort. Patient does none of the effort to complete the activity. Or, the assistance of 2 or more helpers is required for the patient to complete the activity. If activity was not attempted, code reason: 7-Patient Refused. 9-Not Applicable-not attempted and the patient did not perform the activity before the current illness, exacerbation or injury. 10-Not Attempted due to Environmental Limitations-(lack of equipment, weather restraints, etc.). 88-Not Attempted due to Medical Conditions or Safety Concerns. Bed Mobility: 6 Transfers (B,C,W/C): 6 Gait: 6 Stairs: 6 Indoor Mobility (Ambulation): Independent Stairs: Independent Prior Devices Use: None PT Evaluation-Current Subjective Patient is very agreeable to participate with PT. Objective Patient Orientation: Normal For Age Attachments: Oxygen ROM/Strength ROM Lower Extremities bilateral LE WFL Strength Lower Extremities 4-/5 grossly bilateral LE Integumentary/Posture Bowel Incontinence: No Bladder Incontinence: No Posture WFL Neuromuscular (Tone, Coordination, Reflexes) grossly intact Sensory Vision: Functional Hearing: Functional Transfers Sit to Stand (QC): 4 Toilet Transfer (QC): 4 Gait Mode of Locomotion: Walk Anticipated Mode of Locomotion: Walk Walk 10 feet (QC): 4 Walk 50 ft with 2 Turns(QC): 4 Walk 150 ft (QC): 4 Distance: 200' Gait Assistive Device: FWW Comments/Gait Description safe and functional gait sequence Balance Sitting Static: Normal Sitting Dynamic: Normal Standing Static: Normal Standing Dynamic: Normal Treatment Ambulate with FWW on 6L O2 with activity with SAO2 93% after ambulation 200' Assessment/Needs Patient presents with decreased pulmonary function with all functional mobility. Patient has noted increase SOA with minimal activity with SAO2 remaining >90% on 6L O2 with activity. Rehab Potential: Guarded PT [facility] Goals [facility] Goals PT [facility] Goals Time Frame: Sep 01, 2021 Roll Left & Right (QC): 6 Sit to Lying (QC): 6 Lying-Sitting on Side/Bed(QC): 6 Sit to Stand (QC): 6 Chair/Yrd-sg-[place] Xfer(QC): 6 Toilet Transfer (QC): 6 Walk 10 feet (QC): 4 Walk 50ft with 2 Turns (QC): 4 Walk 150 ft (QC): 4 PT Plan Problem List Problem List: Activity Tolerance, Functional Strength, Safety, Balance, Gait, Transfer, Bed Mobility Treatment/Plan Treatment Plan: Continue Plan of Care Treatment Plan: Bed Mobility, Education, Functional Activity Raffi, Functional Strength, Gait, Safety, Therapeutic Exercise, Transfers Treatment Duration: Sep 01, 2021 Frequency: 6 times per week Estimated Hrs Per Day: .25 hour per day Patient and/or Family Agrees t: Yes Time/GCodes Time In: 1235 Time Out: 1309 Total Billed Treatment Time: 34 Total Billed Treatment 1 visit EVModC 20 min FA 14 min ANDREW YANG PT Aug 21, 2021 13:43
[2021-08-21 16:00] VITALS: BP 139/69
[2021-08-21] MEDS ORDERED: LORazepam INJ 2 MG/ML (ATIVAN) VIAL ONE (18:11)
[2021-08-21] MEDS ORDERED: LORazepam INJ 2 MG/ML (ATIVAN) VIAL IVP NR (18:15)
[2021-08-21] MEDS ORDERED: LORazepam INJ 2 MG/ML (ATIVAN) VIAL IV ONE (18:30)
[2021-08-21 19:26] VITALS: BP 121/62
[2021-08-21] MEDS: cefTRIAXone 1 GM PRE-MIX 50 ML IV SCH (20:35)
[2021-08-21] MEDS: AZITHROMYCIN 250 MG TAB (ZITHROMAX) PO SCH (20:35)
[2021-08-21 23:55] VITALS: BP 115/68
[2021-08-22] MEDS: RT-ALBUTEROL/IPRATROPIUM 3 ML (DUONEB) VIAL INH SCH ×6 (01:49→22:15)
[2021-08-22 04:04] VITALS: BP 137/75
[2021-08-22] MEDS: D5 NS 1000 ML IV SOLUTION 1,000 ML IV SCH (05:53)
[2021-08-22] MEDS: methylPREDNISolone 40 MG/ML (Solu-MEDROL) VIAL IV SCH ×3 (05:53→20:48)
[2021-08-22 06:04] LABS: BASOPHILS % (AUTO) 0 % (0-10); EOSINOPHILS % (AUTO) 0 % (0-10); HEMATOCRIT 25 % (35-52); HEMOGLOBIN 7.3 g/dL (11.5-16.0); LYMPHOCYTES # (AUTO) 1.6 10^3/uL (1.0-4.0); LYMPHOCYTES % (AUTO) 8 % (12-44); MEAN CORPUSCULAR HEMOGLOBIN 22 pg (25-34); MEAN CORPUSCULAR HGB CONC 29 g/dL (32-36); MEAN CORPUSCULAR VOLUME 76 fL (80-99); MEAN PLATELET VOLUME 9.4 fL (9.0-12.2); MONOCYTES % (AUTO) 5 % (0-12); NEUTROPHILS # (AUTO) 17.4 10^3/uL (1.8-7.8); NEUTROPHILS % (AUTO) 87 % (42-75); PLATELET COUNT 391 10^3/uL (130-400); WHITE BLOOD COUNT 20.1 10^3/uL (4.3-11.0)
[2021-08-22 06:12] LABS: ALBUMIN 3.6 GM/DL (3.2-4.5)
[2021-08-22 06:13] LABS: CALCIUM 8.7 MG/DL (8.5-10.1)
[2021-08-22 06:14] LABS: TOTAL PROTEIN 7.2 GM/DL (6.4-8.2)
[2021-08-22 06:16] LABS: BILIRUBIN,TOTAL 0.5 MG/DL (0.1-1.0)
[2021-08-22 06:18] LABS: CREATININE SERUM 0.83 MG/DL (0.60-1.30); PHOSPHORUS 2.9 MG/DL (2.3-4.7)
[2021-08-22 06:21] LABS: MAGNESIUM 2.2 MG/DL (1.6-2.4)
[2021-08-22] MEDS: inSUlin ASPART (NovoLOG) 1 UNIT/0.01 ML (CHARGE PER UNIT) SC SCH ×4 (06:36→20:13)
[2021-08-22 06:48] LABS: ANISOCYTOSIS MARKED; BAND NEUTROPHILS 0 %; BASOPHILS % (MANUAL) 0 %; EOSINOPHILS % (MANUAL) 0 %; HYPOCHROMASIA MARKED; LYMPHOCYTES % (MANUAL) 7 %; MICROCYTOSIS SLIGHT; MONOCYTES % (MANUAL) 5 %; NEUTROPHILS % (MANUAL) 88 %; POLYCHROMASIA SLIGHT
[2021-08-22 06:49] LABS: TARGET CELLS SLIGHT
[2021-08-22 08:22] VITALS: BP 158/74
[2021-08-22] MEDS: FAMOTIDINE 20 MG (PEPCID) TABLET PO SCH ×2 (08:43→20:45)
--- NOTE | 2021-08-22 10:51 | Physical Therapy Daily Note ---
PT Daily Note-Current Subjective Upon arrival, pt was laying in bed. Pt states she did not sleep well. Pt agrees to PT. Pain Comment: Pt reports 4/10 pain Mental Status Patient Orientation: Person, Place, Time Attachments: Oxygen (5 wall, 6 O2 tank), IV Transfers SCALE: Activities may be completed with or without assistive devices. 2-Jbrqhuucqc-lzgadev completes the activity by him/herself with no assistance from a helper. 5-Set-up or Clean-up Assistance-helper sets up or cleans up; patient completes activity. [place] assists only prior to or following the activity. 4-Supervision or Touching Assistance-helper provides verbal cues and/or touching/steadying and/or contact guard assistance as patient completes act ivity. Assistance may be provided throughout the activity or intermittently. 3-Partial/Moderate Assistance-helper does LESS THAN HALF the effort. [place] lifts, holds or supports trunk or limbs, but provides less than half the effort. 2-Substantial/Maximal Assistance-helper does MORE THAN HALF the effort. [place] lifts or holds trunk or limbs and provides more than half the effort. 5-Isogauxdr-qwxiwp does ALL the effort. Patient does none of the effort to complete the activity. Or, the assistance of 2 or more helpers is required for the patient to complete the activity. If activity was not attempted, code reason: 7-Patient Refused. 9-Not Applicable-not attempted and the patient did not perform the activity before the current illness, exacerbation or injury. 10-Not Attempted due to Environmental Limitations-(lack of equipment, weather restraints, etc.). 88-Not Attempted due to Medical Conditions or Safety Concerns. Sit to Lying (QC): 4 Lying to Sitting/Side of Bed(Q: 4 Sit to Stand (QC): 4 Toilet Transfer (QC): 4 (Commode) Gait Training Does the Patient Walk?: No and Walking Goal IS indicated Gait Assistive Device: FWW Treatments Pt transferred from bed to commode, pt demonstrated some incontinence, PT cleaned floor and helped pt change into clean briefs. PT had to remove pts blanket and sheet due to it being wet, from pt spilling a drink. Pt demonstrated SOA with transfer from bed to commode and anna marie versa. During tx session, pts RN arrives to give pt meds. Once PT was concluded, pt was laying in bed with call light and tray in reach, all needs were met. As PT exited pts room, pt SOCIAL MEDIA CAMPAIGN MANAGER was p resent. Assessment Current Status: Fair Progress Pt would benefit from continued PT to improve on activity tolerance and strength. Pts SAO2 remained >90 through tx session. Pt decided not to ambulate after transfers, due to SOA. PT [facility] Goals [facility] Goals PT [facility] Goals Time Frame: Sep 01, 2021 Roll Left & Right (QC): 6 Sit to Lying (QC): 6 Lying-Sitting on Side/Bed(QC): 6 Sit to Stand (QC): 6 Chair/Egj-bq-Fjnmv Xfer(QC): 6 Toilet Transfer (QC): 6 Walk 10 feet (QC): 4 Walk 50ft with 2 Turns (QC): 4 Walk 150 ft (QC): 4 PT Plan Problem List Problem List: Activity Tolerance, Functional Strength Treatment/Plan Treatment Plan: Continue Plan of Care Treatment Plan: Bed Mobility, Education, Functional Activity Raffi, Functional Strength, Gait, Safety, Therapeutic Exercise, Transfers Treatment Duration: Sep 01, 2021 Frequency: 6 times per week Estimated Hrs Per Day: .25 hour per day Patient and/or Family Agrees t: Yes Safety Risks/Education Patient Education: Transfer Techniques Teaching Recipient: Patient Teaching Methods: Discussion Response to Teaching: Verbalize Understanding Time/GCodes Time In: 835 Time Out: 918 Total Billed Treatment Time: 43 Total Billed Treatment 1, FA 3 (43) MONICA POTTS INFORMATION CLERK CASHIER Aug 22, 2021 10:51
[2021-08-22 12:06] VITALS: BP 133/67
[2021-08-22] MEDS ORDERED: LORazepam INJ 2 MG/ML (ATIVAN) VIAL ONE ×2 (13:36→22:54)
[2021-08-22] MEDS ORDERED: LORazepam INJ 2 MG/ML (ATIVAN) VIAL IVP NR (13:45)
[2021-08-22 14:48] LABS: ABG BASE EXCESS -9.1 MMOL/L (-2.5-2.5); ABG OXYGEN SATURATION 99 % (94-100); ABG PCO2 34 MMHG (35-45); ABG PO2 172 MMHG (79-93); ABG TCO2 17.1 MMOL/L (21.0-31.0)
[2021-08-22 14:59] LABS: ALLENS TEST POSITIVE; INSPIRED O2 70%; PATIENT TEMP 37; VENTILATOR NO
[2021-08-22 16:00] VITALS: BP 120/65
[2021-08-22 16:23] LABS: ABG BASE EXCESS -3.8 MMOL/L (-2.5-2.5); ABG OXYGEN SATURATION 98 % (94-100); ABG PCO2 35 MMHG (35-45); ABG PH 7.38 (7.37-7.43); ABG PO2 100 MMHG (79-93); ABG TCO2 21.5 MMOL/L (21.0-31.0)
[2021-08-22 16:24] LABS: ALLENS TEST POSITIVE; INSPIRED O2 70%; PATIENT TEMP 37.1; VENTILATOR YES
[2021-08-22 19:41] VITALS: BP 139/86
--- NOTE | 2021-08-22 20:35 | Progress Note ---
Subjective Subjective/Events-last exam Patient states that she is doing ok this AM. States that she had a rough night and did not get much sleep. She has an episode of shortness of breath yesterday evening and had to put on the bipap and get anxiety medication. Otherwise she did well with PT. Tolerated PO diet. Review of Systems Pulmonary: Dyspnea, Cough Cardiovascular: Edema Neurological: Weakness, Incoordination Focused Exam Lactate Level 08/19/21 22:31: Lactic Acid Level 4.48*H 08/20/21 00:33: Lactic Acid Level 1.97 Objective Exam Last Set of Vital Signs Vital Signs Date Time Temp Pulse Resp B/P (MAP) Pulse Ox O2 Delivery O2 Flow Rate FiO2 08/22/21 20:00 NIV Bilevel 08/22/21 19:41 36.6 113 22 139/86 (103) 96 50.00 08/20/21 08:00 30 Capillary Refill : Less Than 3 Seconds I&O Intake and Output 08/22/21 00:00 Intake Total 1410 ml Output Total 1650 ml Balance -240 ml Intake Oral 1410 ml Output Urine Total 1650 ml # Voids 3 General: Alert, Oriented X3, Moderate Distress (with minimal exertion) Lungs: Other (diffuse wheezing throughout, increased work of breathing with activity) Heart: Regular Rate, No Murmurs Abdomen: Normal Bowel Sounds, Soft, No Tenderness, No Masses Extremities: No Edema, No Tenderness/Swelling Neuro: Normal Speech Psych/Mental Status: Other (anxiety about losing her breath again) Results/Procedures Lab Laboratory Tests 08/22/21 05:00: White Blood Count 20.1H, Red Blood Count 3.32L, Hemoglobin 7.3L, Hematocrit 25L, Mean Corpuscular Volume 76L, Mean Corpuscular Hemoglobin 22L, Mean Corpuscular Hemoglobin Concent 29L, Red Cell Distribution Width 19.1H, Platelet Count 391, Mean Platelet Volume 9.4, Immature Granulocyte % (Auto) 1, Neutrophils (%) (Auto) 87H, Lymphocytes (%) (Auto) 8L, Monocytes (%) (Auto) 5, Eosinophils (%) (Auto) 0, Basophils (%) (Auto) 0, Neutrophils # (Auto) 17.4H, Lymphocytes # (Auto) 1.6, Monocytes # (Auto) 1.0, Eosinophils # (Auto) 0.0, Basophils # (Auto) 0.0, Immature Granulocyte # (Auto) 0.1, Neutrophils % (Manual) 88, Lymphocytes % (Manual) 7, Monocytes % (Manual) 5, Eosinophils % (Manual) 0, Basophils % (Manual) 0, Band Neutrophils 0, Polychromasia SLIGHT, Hypochromasia MARKED, Anisocytosis MARKED, Microcytosis SLIGHT, Target Cells SLIGHT, Sodium Level 136, Potassium Level 4.0, Chloride Level 103, Carbon Dioxide Level 20L, Anion Gap 13, Blood Urea Nitrogen 19H, Creatinine 0.83, Estimat Glomerular Filtration Rate 79, BUN/Creatinine Ratio 23, Glucose Level 127H, Calcium Level 8.7, Corrected Calcium 9.0, Phosphorus Level 2.9, Magnesium Level 2.2, Total Bilirubin 0.5, Aspartate Amino Transf (AST/SGOT) 41H, Alanine Aminotransferase (ALT/SGPT) 30, Alkaline Phosphatase 87, Total Protein 7.2, Albumin 3.6 08/22/21 11:43: Glucometer 129H 08/22/21 14:30: Blood Gas Puncture Site LEFT RADIAL, Blood Gas Patient Temperature 37, Arterial Blood pH 7.30*L, Arterial Blood Partial Pressure CO2 34L, Arterial Blood Partial Pressure O2 172H, Arterial Blood HCO3 16*L, Arterial Blood Total CO2 17.1L, Arterial Blood Oxygen Saturation 99, Arterial Blood Base Excess -9.1L, John Test POSITIVE, Blood Gas Ventilator Setting NO, Blood Gas Inspired Oxygen 70% 08/22/21 15:41: Glucometer 119H 08/22/21 16:16: Blood Gas Puncture Site LEFT RADIAL, Blood Gas Patient Temperature 37.1, Arterial Blood pH 7.38, Arterial Blood Partial Pressure CO2 35, Arterial Blood Partial Pressure O2 100H, Arterial Blood HCO3 20L, Arterial Blood Total CO2 21.5, Arterial Blood Oxygen Saturation 98, Arterial Blood Base Excess -3.8L, John Test POSITIVE, Blood Gas Ventilator Setting YES, Blood Gas Inspired Oxygen 70% 08/22/21 20:08: Glucometer 160H Microbiology 08/19/21 MRSA Screen - Final, Complete MRSA not isolated 08/19/21 Urine Culture - Final, Complete NO GROWTH 08/19/21 Blood Culture - Preliminary, Resulted No growth Assessment/Plan Assessment/Plan (1) Acute and chronic respiratory failure with hypoxia Status: Acute Assessment & Plan: - Patient admitted to ICU on bipap, will transition to [place] as ABG was much improved last night, patient desires to wear bipap when resting, MAT protocol, IV steroids q8hrs, IV antibiotics 08/21: Improving, patient is on home oxygen, will continue to monitor 08/22: On bipap overnight, patient had episode of anxiety and had to be placed on bipap because she said that was the only thing that helped, oxygen rebounded quickly (2) Microcytic anemia Assessment & Plan: 08/21: Fe studies pending, will replace fe if low, patient states that she had colonoscopy several years ago with Dr Bains w/o any removal of polyps 08/22: Started on venofer (3) Sepsis Status: Resolved Assessment & Plan: - HDS, will continue to monitor VS Qualifiers: (4) Bilateral pneumonia Status: Acute Qualifiers: Qualified Codes: J18.9 - Pneumonia, unspecified organism (5) CAD (coronary artery disease) Status: Chronic Qualifiers: Qualified Codes: I25.10 - Atherosclerotic heart disease of [place] coronary artery without angina pectoris (6) COPD with exacerbation Status: Acute (7) Elevated d-dimer Status: Acute Assessment & Plan: - CTA: No PE, will transition to lovenox (8) Heavy smoker Status: Chronic (9) Basal cell carcinoma (BCC) of dorsum of nose Status: Acute Assessment & Plan: 08/21: On going treatment in [place] (10) DVT prophylaxis Status: Chronic Assessment & Plan: - Admitted on Heparin, will transition to lovenox (11) Physical debility Status: Acute Assessment & Plan: 08/21: PT/OT encourage BANDAR BERRY MD Aug 22, 2021 20:34
[2021-08-22] MEDS: AZITHROMYCIN 250 MG TAB (ZITHROMAX) PO SCH (20:45)
[2021-08-22] MEDS: MONTELUKAST 10 MG (SINGULAIR) TAB PO SCH (20:45)
[2021-08-22] MEDS: DULoxetine 30 MG (CYMBALTA) CAP PO SCH (20:45)
[2021-08-22] MEDS: ASPIRIN 81 MG CHEW (CHILDREN'S ASA) PO SCH (20:46)
[2021-08-22] MEDS: cefTRIAXone 1 GM PRE-MIX 50 ML IV SCH (20:49)
[2021-08-22] MEDS ORDERED: NON-FORMULARY MEDICATION 1 EA EA (Duloxetine HCl 120 MG) PO SCH (21:00)
[2021-08-22] MEDS ORDERED: NON-FORMULARY MEDICATION 1 EA EA (Buprenorphine HCl 8 MG) SL SCH (21:00)
[2021-08-22] MEDS ORDERED: LORazepam 0.5 MG (ATIVAN) TABLET ONE (22:37)
[2021-08-22] MEDS ORDERED: LORazepam 1 MG (ATIVAN) TAB PO ONE (22:45)
[2021-08-22] MEDS ORDERED: LORazepam INJ 2 MG/ML (ATIVAN) VIAL IVP ONE (23:00)
[2021-08-23] VITALS (14 sets, daily range): BP systolic 92–141; BP diastolic 58–93
[2021-08-23] MEDS: RT-ALBUTEROL/IPRATROPIUM 3 ML (DUONEB) VIAL INH SCH ×6 (02:15→22:11)
[2021-08-23] MEDS: D5 NS 1000 ML IV SOLUTION 1,000 ML IV SCH ×2 (03:07→19:48)
[2021-08-23] MEDS: methylPREDNISolone 40 MG/ML (Solu-MEDROL) VIAL IV SCH ×3 (05:26→21:06)
[2021-08-23] MEDS: inSUlin ASPART (NovoLOG) 1 UNIT/0.01 ML (CHARGE PER UNIT) SC SCH ×4 (06:02→23:20)
[2021-08-23 06:34] LABS: BASOPHILS % (AUTO) 0 % (0-10); EOSINOPHILS % (AUTO) 0 % (0-10); HEMATOCRIT 24 % (35-52); HEMOGLOBIN 7.1 g/dL (11.5-16.0); LYMPHOCYTES # (AUTO) 1.6 10^3/uL (1.0-4.0); LYMPHOCYTES % (AUTO) 9 % (12-44); MEAN CORPUSCULAR HEMOGLOBIN 23 pg (25-34); MEAN CORPUSCULAR HGB CONC 30 g/dL (32-36); MEAN CORPUSCULAR VOLUME 76 fL (80-99); MEAN PLATELET VOLUME 9.6 fL (9.0-12.2); MONOCYTES # (AUTO) 1.1 10^3/uL (0.0-1.0); MONOCYTES % (AUTO) 6 % (0-12); NEUTROPHILS # (AUTO) 16.1 10^3/uL (1.8-7.8); NEUTROPHILS % (AUTO) 85 % (42-75); PLATELET COUNT 357 10^3/uL (130-400)
[2021-08-23 06:52] LABS: ALBUMIN 3.3 GM/DL (3.2-4.5)
[2021-08-23 06:53] LABS: CALCIUM 8.5 MG/DL (8.5-10.1)
[2021-08-23 06:55] LABS: TOTAL PROTEIN 6.6 GM/DL (6.4-8.2)
[2021-08-23 06:56] LABS: BILIRUBIN,TOTAL 0.5 MG/DL (0.1-1.0)
[2021-08-23 06:58] LABS: CREATININE SERUM 0.87 MG/DL (0.60-1.30); PHOSPHORUS 2.7 MG/DL (2.3-4.7)
[2021-08-23 07:01] LABS: MAGNESIUM 2.3 MG/DL (1.6-2.4)
[2021-08-23] MEDS ORDERED: LORazepam INJ 2 MG/ML (ATIVAN) VIAL ONE (08:37)
[2021-08-23] MEDS ORDERED: LORazepam INJ 2 MG/ML (ATIVAN) VIAL IVP ONE (08:45)
[2021-08-23] MEDS ORDERED: LORazepam 0.5 MG (ATIVAN) TABLET PO PRN (09:00)
[2021-08-23] MEDS: FAMOTIDINE 20 MG (PEPCID) TABLET PO SCH ×2 (09:42→21:05)
--- NOTE | 2021-08-23 09:45 | Physical Therapy Progress Note ---
Therapy Progress Note Patient on Hold per RN due to decline in medical/pulmonary status. Will continue to monitor patient status and resume when deemed medically stable. ANDREW YANG PT Aug 23, 2021 09:45
[2021-08-23] MEDS: LORazepam 0.5 MG (ATIVAN) TABLET PO SCH ×3 (12:00→23:19)
[2021-08-23] MEDS ORDERED: CEFEPIME INJECTION 2,000 MG in NS (IVPB) 50 ML IV SCH (13:15)
--- NOTE | 2021-08-23 13:18 | Progress Note ---
Subjective Subjective/Events-last exam Called by nurse to evaluate patient. She has been steadily declining over the last 12 hrs. She has become more anxious and feels like she can not breath. She was asking to be intubated last night because of her shortness of breath but improved with ativan. Currently patient took bipap off so that she could have a drink and quickly became hypoxic on 15L NC. Bipap was placed back on patient and change of status to ICU was made. House supervisior notified and patient was transferred up to the ICU. CXR and repeat labs were ordered. Review of Systems Pulmonary: Dyspnea, Cough Cardiovascular: No: Chest Pain, Palpitations Neurological: Weakness, Incoordination; No: Confusion Objective Exam Last Set of Vital Signs Vital Signs Date Time Temp Pulse Resp B/P (MAP) Pulse Ox O2 Delivery O2 Flow Rate FiO2 08/23/21 12:00 36.6 130 28 114/79 (91) 91 NIV Bilevel 65.00 08/20/21 08:00 30 Capillary Refill : Less Than 3 Seconds I&O Intake and Output 08/23/21 00:00 Intake Total 2540 ml Balance 2540 ml Intake Oral 1490 ml IV Total 1050 ml # Voids 5 # Bowel Movements 1 General: Alert, Moderate Distress Lungs: Other (Diffuse wheezing and rhonchi, moderate increased work of breathing at rest) Heart: Other (tachycardic rate, no murmurs) Abdomen: Soft, No Tenderness, No Masses Extremities: No Edema, No Tenderness/Swelling Neuro: Other (conversational dyspnea and anxiety) Results/Procedures Lab Laboratory Tests 08/22/21 14:30: Blood Gas Puncture Site LEFT RADIAL, Blood Gas Patient Temperature 37, Arterial Blood pH 7.30*L, Arterial Blood Partial Pressure CO2 34L, Arterial Blood Partial Pressure O2 172H, Arterial Blood HCO3 16*L, Arterial Blood Total CO2 17.1L, Arterial Blood Oxygen Saturation 99, Arterial Blood Base Excess -9.1L, John Test POSITIVE, Blood Gas Ventilator Setting NO, Blood Gas Inspired Oxygen 70% 08/22/21 15:41: Glucometer 119H 08/22/21 16:16: Blood Gas Puncture Site LEFT RADIAL, Blood Gas Patient Temperature 37.1, Arterial Blood pH 7.38, Arterial Blood Partial Pressure CO2 35, Arterial Blood Partial Pressure O2 100H, Arterial Blood HCO3 20L, Arterial Blood Total CO2 21.5, Arterial Blood Oxygen Saturation 98, Arterial Blood Base Excess -3.8L, John Test POSITIVE, Blood Gas Ventilator Setting YES, Blood Gas Inspired Oxygen 70% 08/22/21 20:08: Glucometer 160H 08/23/21 06:03: Glucometer 156H 08/23/21 06:20: White Blood Count 19.0H, Red Blood Count 3.14L, Hemoglobin 7.1L, Hematocrit 24L, Mean Corpuscular Volume 76L, Mean Corpuscular Hemoglobin 23L, Mean Corpuscular Hemoglobin Concent 30L, Red Cell Distribution Width 18.9H, Platelet Count 357, Mean Platelet Volume 9.6, Immature Granulocyte % (Auto) 1, Neutrophils (%) (Auto) 85H, Lymphocytes (%) (Auto) 9L, Monocytes (%) (Auto) 6, Eosinophils (%) (Auto) 0, Basophils (%) (Auto) 0, Neutrophils # (Auto) 16.1H, Lymphocytes # (Auto) 1.6, Monocytes # (Auto) 1.1H, Eosinophils # (Auto) 0.0, Basophils # (Auto) 0.0, Immature Granulocyte # (Auto) 0.1, Sodium Level 137, Potassium Level 4.0, Chloride Level 105, Carbon Dioxide Level 19L, Anion Gap 13, Blood Urea Nitrogen 22H, Creatinine 0.87, Estimat Glomerular Filtration Rate 74, BUN/Creatinine Ratio 25, Glucose Level 134H, Calcium Level 8.5, Corrected Calcium 9.1, Phosphorus Level 2.7, Magnesium Level 2.3, Total Bilirubin 0.5, Aspartate Amino Transf (AST/SGOT) 67H, Alanine Aminotransferase (ALT/SGPT) 38, Alkaline Phosphatase 80, Total Protein 6.6, Albumin 3.3 08/23/21 10:51: Glucometer 117H Microbiology 08/19/21 MRSA Screen - Final, Complete MRSA not isolated 08/19/21 Urine Culture - Final, Complete NO GROWTH 08/19/21 Blood Culture - Preliminary, Resulted No growth Assessment/Plan Assessment/Plan (1) Acute and chronic respiratory failure with hypoxia Status: Acute Assessment & Plan: - Patient admitted to ICU on bipap, will transition to NC as ABG was much improved last night, patient desires to wear bipap when resting, MAT protocol, IV steroids q8hrs, IV antibiotics 08/21: Improving, patient is on home oxygen, will continue to monitor 08/22: On bipap overnight, patient had episode of anxiety and had to be placed on bipap because she said that was the only thing that helped, oxygen rebounded quickly 08/23: Patient with a couple episodes or respiratory distress ON, upon evaluation this AM, patient in moderate to severe distress w/o bipap on. Bipap placed on patient and patient was moved to ICU do to profound distress with hypoxia, repeat CXR, labs and broaded antibiotics to cefepime, notified eICU of change in status (2) Microcytic anemia Assessment & Plan: 08/21: Fe studies pending, will replace fe if low, patient states that she had colonoscopy several years ago with Dr Bains w/o any removal of polyps 08/22: Started on venofer (3) Sepsis Status: Resolved Assessment & Plan: - HDS, will continue to monitor VS Qualifiers: (4) Bilateral pneumonia Status: Acute Assessment & Plan: 08/23: Antibiotics were broadened to Cefepime Qualifiers: Qualified Codes: J18.9 - Pneumonia, unspecified organism (5) CAD (coronary artery disease) Status: Chronic Qualifiers: Qualified Codes: I25.10 - Atherosclerotic heart disease of [place] coronary artery without angina pectoris (6) COPD with exacerbation Status: Acute (7) Elevated d-dimer Status: Acute Assessment & Plan: - CTA: No PE, will transition to lovenox (8) Heavy smoker Status: Chronic (9) Basal cell carcinoma (BCC) of dorsum of nose Status: Acute Assessment & Plan: 08/21: On going treatment in [place] (10) DVT prophylaxis Status: Chronic Assessment & Plan: - Admitted on Heparin, will transition to lovenox (11) Physical debility Status: Acute Assessment & Plan: 08/21: PT/OT encourage BANDAR BERRY MD Aug 23, 2021 13:18
--- NOTE | 2021-08-23 13:28 | Diagnostic Imaging Report ---
INDICATION: Respiratory failure. COMPARISON: 08/19/2021. FINDINGS: Single view of the chest demonstrates slightly worsening diffuse infiltrates. There is no pneumothorax or effusion. The heart size is normal. Osseous structures are age appropriate. IMPRESSION: Slightly worsening infiltrates. Dictated by: Dictated on workstation # [id number]
[2021-08-23] MEDS ORDERED: FUROSEMIDE 40 MG/4 ML INJ (LASIX) IVP NR (13:30)
--- NOTE | 2021-08-23 13:37 | Tele-ICU Progress Note ---
Subjective Date Seen by a Provider: Aug 23, 2021 Time Seen by a Provider: 13:36 Subjective/Events-last exam (Tele-ICU Physician , Progress Note ) Available chart/ vitals / labs / Images reviewed Video assessment done using teleICU camera, rest of exam as per RN Discussed with RN , EXAM PER RN Hospital course: (08/19) 66/F- Acute copd exacerbation, bipap, extensive copd/cv hx on home O2.--BIPAP. 08/21 0 on NC --> med floor 08/23 transfered to ICU on BIPAP 28/08 A/P Acute resp failure ( PNA and AECOPD, no PE on CT 08/19) - BIPAP 02/19 r 19 tv 600 30 % - 08/21 0 on NC --> med floor 08/22 placed onBipap 02/19 , but with resp acidosis BIPAP changed to28/08 08/23 transfered to ICU on BIPAP 28/08 rr 26 TV 100 , MV 24-28 L AAOx1 - WILL CHECK CXR , ABG - VO vs WORSENIG PNA - lasix already orderd by PCP - given AECOPD - cont steroids IV same dose today h/o CHF - ECHO 2020 - EF 65 % RLL PNA - cont abx - NEG flu , covid - follow cxr and PCT - might need abx change Elev ddimer 08/19 - no PE on CT 08/19) - on proph dose lovenox , follow closely , no clinical suspicios for PE Pulm nodule - f/up outpt as per PCP follow up BS on steroids Lines : (Central Line Necessity Reviewed) [place]: OG: Nutrition: Analgesia: Anxiety/ delirium VTE Prophylaxis: hep sq Stress Ulcer Prophylaxis: H2bl - ON STEROIDS Plans in collaboration with bedside consultants and IM MDs. Discussed with RN to reach out if any questions or concerns A total of 31 minutes of critical care time was devoted to this patient today, required to treat and/or prevent further deterioration of critical care condition ( as above) . Sepsis Event Evaluation Height, Weight, BMI Height: 4'9.00" Weight: 100lbs. 2.0oz. 45.539482bl; 28.66 BMI Method:Stated Exam Exam Patient acknowledged, consented, and participated in this virtual visit which was conducted using real time audio/video Vital Signs Date Time Temp Pulse Resp B/P (MAP) Pulse Ox O2 Delivery O2 Flow Rate FiO2 08/23/21 12:00 36.6 130 28 114/79 (91) 91 NIV Bilevel 65.00 08/23/21 08:54 122 17 92 60.00 08/23/21 08:00 NIV Bilevel 08/23/21 07:47 36.0 142 30 141/92 (108) 95 NIV Bilevel 65.00 08/23/21 07:32 120 15 94 50.00 08/23/21 03:49 36.6 107 20 138/77 (97) 93 NIV Bilevel 65.00 08/23/21 02:16 115 18 95 50.00 08/22/21 23:22 139 18 96 NIV Bilevel 65.00 08/22/21 23:00 160 22 100 NIV Bilevel 65.00 08/22/21 22:49 180 40 100 NIV Bilevel 65.00 08/22/21 22:15 145 36 96 65.00 08/22/21 20:00 NIV Bilevel 08/22/21 19:41 36.6 113 22 139/86 (103) 96 NIV Bilevel 50.00 08/22/21 18:25 116 26 95 50.00 08/22/21 16:00 35.9 114 22 120/65 (83) 98 NIV Bilevel 70.00 08/22/21 14:06 93 30 95 70.00 I & O 08/23/21 07:00 Intake Total 1590 ml Balance 1590 ml Height & Weight Height: 4'9.00" Weight: 100lbs. 2.0oz. 45.834796pg; 28.66 BMI Method:Stated General Appearance: No Apparent Distress Capillary Refill: Less Than 3 Seconds Gastrointestinal: normal bowel sounds, non tender, soft Results Lab Laboratory Tests 08/22/21 05:00 08/23/21 06:20 Assessment/Plan Assessment/Plan ` GILMAR MONTEZ MD Aug 23, 2021 13:37
[2021-08-23] MEDS: CEFEPIME 1,000 MG/NS 50 ML IVPB IV SCH ×4 (13:49→21:06)
[2021-08-23 14:16] LABS: ABG BASE EXCESS -1.9 MMOL/L (-2.5-2.5); ABG OXYGEN SATURATION 80 % (94-100); ABG PCO2 36 MMHG (35-45); ABG PO2 43 MMHG (79-93); ABG TCO2 23.4 MMOL/L (21.0-31.0); ALLENS TEST YES-POS; INSPIRED O2 65% BIPAP; PATIENT TEMP 36.4; VENTILATOR NO
[2021-08-23] MEDS ORDERED: DexMEDEtomidine 250 ML DRIP 250 ML IV ONE (14:41)
[2021-08-23] MEDS: DexMEDEtomidine 250 ML DRIP 250 ML IV SCH (14:46)
[2021-08-23] MEDS: ASPIRIN 81 MG CHEW (CHILDREN'S ASA) PO SCH (21:05)
[2021-08-23] MEDS: MONTELUKAST 10 MG (SINGULAIR) TAB PO SCH (21:05)
[2021-08-23] MEDS: DULoxetine 30 MG (CYMBALTA) CAP PO SCH (21:05)
[2021-08-24] VITALS (26 sets, daily range): BP systolic 88–170; BP diastolic 56–99
[2021-08-24] MEDS: RT-ALBUTEROL/IPRATROPIUM 3 ML (DUONEB) VIAL INH SCH ×6 (02:34→22:42)
[2021-08-24] MEDS: LORazepam 0.5 MG (ATIVAN) TABLET PO SCH ×3 (05:14→17:26)
[2021-08-24] MEDS: CEFEPIME 1,000 MG/NS 50 ML IVPB IV SCH ×6 (05:14→21:53)
[2021-08-24] MEDS: methylPREDNISolone 40 MG/ML (Solu-MEDROL) VIAL IV SCH ×3 (05:14→21:53)
[2021-08-24 05:23] LABS: BASOPHILS % (AUTO) 0 % (0-10); EOSINOPHILS % (AUTO) 0 % (0-10); HEMATOCRIT 22 % (35-52); LYMPHOCYTES # (AUTO) 1.1 10^3/uL (1.0-4.0); LYMPHOCYTES % (AUTO) 10 % (12-44); MEAN CORPUSCULAR HEMOGLOBIN 22 pg (25-34); MEAN CORPUSCULAR HGB CONC 29 g/dL (32-36); MEAN CORPUSCULAR VOLUME 76 fL (80-99); MEAN PLATELET VOLUME 9.8 fL (9.0-12.2); MONOCYTES # (AUTO) 0.6 10^3/uL (0.0-1.0); MONOCYTES % (AUTO) 5 % (0-12); NEUTROPHILS % (AUTO) 84 % (42-75); PLATELET COUNT 300 10^3/uL (130-400); WHITE BLOOD COUNT 10.8 10^3/uL (4.3-11.0)
[2021-08-24 05:27] LABS: HEMOGLOBIN 6.4 g/dL (11.5-16.0)
[2021-08-24 05:39] LABS: ALBUMIN 3.2 GM/DL (3.2-4.5)
[2021-08-24 05:40] LABS: POTASSIUM 3.8 MMOL/L (3.6-5.0)
[2021-08-24 05:41] LABS: CALCIUM 8.5 MG/DL (8.5-10.1)
[2021-08-24 05:42] LABS: TOTAL PROTEIN 6.3 GM/DL (6.4-8.2)
[2021-08-24 05:44] LABS: BILIRUBIN,TOTAL 0.6 MG/DL (0.1-1.0)
[2021-08-24 05:45] LABS: PHOSPHORUS 2.9 MG/DL (2.3-4.7)
[2021-08-24] MEDS ORDERED: NS IV 500 ML 500 ML IV SCH ×2 (05:45)
[2021-08-24 05:46] LABS: CREATININE SERUM 0.89 MG/DL (0.60-1.30)
[2021-08-24 05:48] LABS: MAGNESIUM 2.3 MG/DL (1.6-2.4)
[2021-08-24] MEDS: MAGNESIUM 1 GM/100 ML IVPB 100 ML IV SCH (06:12)
[2021-08-24] MEDS: POTASSIUM CL 10MEQ/50ML IVPB 50 ML IV SCH (06:12)
[2021-08-24] MEDS: KCL 20 MEQ TAB (K-DUR) PO SCH (06:13)
[2021-08-24] MEDS: inSUlin ASPART (NovoLOG) 1 UNIT/0.01 ML (CHARGE PER UNIT) SC SCH ×3 (06:13→17:26)
--- NOTE | 2021-08-24 07:23 | Physical Therapy Progress Note ---
Therapy Progress Note Patient transferred to ICU due to decline in medical/pulmonary status. PT will require new orders when patient is medically stable and able to actively participate with skilled therapy. ANDREW YANG PT Aug 24, 2021 07:23
[2021-08-24] MEDS: FAMOTIDINE 20 MG (PEPCID) TABLET PO SCH ×2 (08:46→20:54)
[2021-08-24] MEDS: IRON SUCROSE 200 MG/10 ML (VENOFER) VIAL IV SCH (08:46)
--- NOTE | 2021-08-24 09:05 | Tele-ICU Progress Note ---
Subjective Date Seen by a Provider: Aug 24, 2021 Time Seen by a Provider: 09:03 Subjective/Events-last exam Telemetry ICU physician progress note. Available data,/vitals/labs/images reviewed. Discussed with POLYSOM TECH. Physical examination per RN. Hospital course. Patient remained on the BiPAP ventilation. Her hemoglobin dropped to 6.4. As per RN she sounded wet on the right side. Urine output is low. Hence she is given low-dose Lasix. Also heparin is put on hold due to low hemoglobin and concern for bleeding Sepsis Event Evaluation Height, Weight, BMI Height: 4'9.00" Weight: 100lbs. 2.0oz. 45.635266ck; 28.18 BMI Method:Stated Focused Exam Lactate Level 08/23/21 13:30: Lactic Acid Level 1.97 Exam Exam Patient acknowledged, consented, and participated in this virtual visit which was conducted using real time audio/video Vital Signs Date Time Temp Pulse Resp B/P (MAP) Pulse Ox O2 Delivery O2 Flow Rate FiO2 08/24/21 09:00 36.0 84 17 139/87 91 NIV Bilevel 55 08/24/21 08:42 36.0 87 17 129/84 93 NIV Bilevel 55 08/24/21 08:00 86 16 92 NIV Bilevel 55.00 08/24/21 07:45 36.5 08/24/21 07:00 86 08/24/21 07:00 92 23 95 NIV Bilevel 55.00 08/24/21 06:00 114 19 90 NIV Bilevel 55.00 08/24/21 05:00 86 19 104/61 (75) 94 NIV Bilevel 55.00 08/24/21 04:00 104 15 114/65 (81) 97 NIV Bilevel 55.00 08/24/21 03:11 NIV Bilevel 55 08/24/21 03:10 35.9 NIV Bilevel 55.00 08/24/21 03:00 90 17 102/57 (72) 94 NIV Bilevel 55.00 08/24/21 02:35 92 15 93 55.00 08/24/21 02:00 87 15 88/56 (67) 92 NIV Bilevel 55.00 08/24/21 01:00 87 08/24/21 01:00 87 14 105/66 (79) 93 NIV Bilevel 55.00 08/24/21 00:00 93 17 109/63 (78) 94 NIV Bilevel 55.00 08/24/21 00:00 NIV Bilevel 55 08/23/21 23:45 36.1 NIV Bilevel 55.00 08/23/21 23:00 96 18 102/60 (74) 93 NIV Bilevel 50.00 08/23/21 22:12 92 18 93 55.00 08/23/21 22:00 80 15 104/62 (76) 96 NIV Bilevel 50.00 08/23/21 21:00 86 18 114/75 (88) 90 NIV Bilevel 50.00 08/23/21 20:00 87 18 108/62 (77) 92 NIV Bilevel 50.00 08/23/21 20:00 NIV Bilevel 55 08/23/21 19:11 NIV Bilevel 50.00 08/23/21 19:09 36.3 08/23/21 19:00 86 08/23/21 19:00 86 19 92/58 (69) 2 NIV Bilevel 50.00 08/23/21 18:12 92 18 93 50.00 08/23/21 18:00 92 18 99/69 (79) 92 NIV Bilevel 65.00 08/23/21 17:00 108 21 102/59 (73) 93 NIV Bilevel 65.00 08/23/21 16:00 115 22 121/59 (79) 90 NIV Bilevel 65.00 08/23/21 16:00 36.0 08/23/21 15:00 122 19 128/93 (105) 94 NIV Bilevel 65.00 08/23/21 14:56 115 33 97 55.00 08/23/21 14:46 117 130/85 08/23/21 14:00 116 14 121/75 (90) 97 NIV Bilevel 65.00 08/23/21 13:00 117 29 130/85 (100) 100 NIV Bilevel 65.00 08/23/21 12:30 116 08/23/21 12:00 36.6 130 28 114/79 (91) 91 NIV Bilevel 65.00 I & O 08/24/21 06:59 Intake Total 1600 ml Output Total 1525 ml Balance 75 ml Height & Weight Height: 4'9.00" Weight: 100lbs. 2.0oz. 45.522801uf; 28.18 BMI Method:Stated General Appearance: No Apparent Distress Capillary Refill: Less Than 3 Seconds Gastrointestinal: normal bowel sounds, non tender, soft Results Lab Laboratory Tests 08/23/21 06:20 08/24/21 04:24 Assessment/Plan Assessment/Plan 1. Acute on chronic respiratory failure with hypoxia. Patient probably has a combination of pneumonia and acute exacerbation of COPD. No PE found on CT of the chest. Chest x-ray reviewed and showed slightly congested. She is given Lasix 20 mg IV. 2. Microcytic anemia worsening. Concern for bleeding. She will be transfused 1 unit of packed red blood cells and give 20 mg of Lasix IV. 3. Acute exacerbation of COPD. Continue steroids and nebulizer treatments 4. Right lower lobe pneumonia. Continue IV antibiotics per primary care. 5. Pulmonary nodule. Follow-up as an outpatient per PCP. 6. Continue blood sugar monitoring and hemoglobin and periodic monitoring with chest x-rays. 7. Discussed with the INCOME TAX INVESTIGATOR.. Critical Care: Critically Ill Patient Time spent with patient (mins): 25 URSULA DAEN MD Aug 24, 2021 09:05
--- NOTE | 2021-08-24 09:25 | Diagnostic Imaging Report ---
EXAMINATION: Chest 1 view HISTORY: Congestive heart failure COMPARISON: 08/23/2021 FINDINGS: Heart size and pulmonary vasculature are normal. There are diffuse interstitial opacities seen throughout both lungs. No pleural effusion or pneumothorax. The osseous structures are intact. IMPRESSION: 1. Stable diffuse interstitial opacities throughout both lungs compatible with history of congestive heart failure and pulmonary edema. Dictated by: Dictated on workstation # [id number]
[2021-08-24] MEDS ORDERED: FUROSEMIDE 40 MG/4 ML INJ (LASIX) IVP NR (10:30)
--- NOTE | 2021-08-24 10:37 | Progress Note - Hospitalist ---
Subjective HPI/CC On Admission Date Seen by Provider: Aug 24, 2021 Time Seen by Provider: 11:30 Subjective/Events-last exam Pt is BiPAP dependent Settings are 14/8 was 65% now 50% Hemoglobin was 6.4 receiving one unit of blood Her usual Hemoglobin is 7.8 Intubation will likely be required Anxiety is an issue Lungs are very coarse and wheezy Review of Systems General: Fatigue Pulmonary: Dyspnea Focused Exam Lactate Level 08/23/21 13:30: Lactic Acid Level 1.97 Objective Exam Vital Signs Vital Signs Date Time Temp Pulse Resp B/P (MAP) Pulse Ox O2 Delivery O2 Flow Rate FiO2 08/24/21 19:07 70 22 91 55.00 08/24/21 18:00 160/98 (118) NIV Bilevel 08/24/21 15:55 50 08/24/21 11:48 36.2 Capillary Refill : Less Than 3 Seconds General Appearance: WD/WN, Anxious, Chronically ill, Mild Distress, Other (bipap) Respiratory: Crackles, Decreased Breath Sounds Cardiovascular: Regular Rate, Rhythm Neurologic/Psychiatric: Alert Results/Procedures Lab Laboratory Tests 08/24/21 04:24 Patient resulted labs reviewed. Assessment/Plan Assessment and Plan Assess & Plan/Chief Complaint (1) Acute and chronic respiratory failure with hypoxia Status: Acute Assessment & Plan: - Patient admitted to ICU on bipap, will transition to NC as ABG was much improved last night, patient desires to wear bipap when resting, MAT protocol, IV steroids q8hrs, IV antibiotics 08/21: Improving, patient is on home oxygen, will continue to monitor 08/22: On bipap overnight, patient had episode of anxiety and had to be placed on bipap because she said that was the only thing that helped, oxygen rebounded quickly 08/23: Patient with a couple episodes or respiratory distress ON, upon evaluation this AM, patient in moderate to severe distress w/o bipap on. Bipap placed on patient and patient was moved to ICU do to profound distress with hypoxia, re peat CXR, labs and broaded antibiotics to cefepime, notified eICU of change in status 08/24: remains biPAP dependent (2) Microcytic anemia Assessment & Plan: 08/21: Fe studies pending, will replace fe if low, patient states that she had colonoscopy several years ago with Dr Bains w/o any removal of polyps 08/22: Started on venofer 08/23: Give 1 unit of blood (3) Sepsis Status: Resolved Assessment & Plan: - HDS, will continue to monitor VS Qualifiers: (4) Bilateral pneumonia Status: Acute Assessment & Plan: 08/23: Antibiotics were broadened to Cefepime Qualifiers: Qualified Codes: J18.9 - Pneumonia, unspecified organism (5) CAD (coronary artery disease) Status: Chronic Qualifiers: Qualified Codes: I25.10 - Atherosclerotic heart disease of [place] coronary artery without angina pectoris (6) COPD with exacerbation Status: Acute (7) Elevated d-dimer Status: Acute Assessment & Plan: - CTA: No PE, will transition to lovenox (8) Heavy smoker Status: Chronic (9) Basal cell carcinoma (BCC) of dorsum of nose Status: Acute Assessment & Plan: 08/21: On going treatment in [place] (10) DVT prophylaxis Status: Chronic Assessment & Plan: - Admitted on Heparin, will transition to lovenox (11) Physical debility Status: Acute Assessment & Plan: 08/21: PT/OT encourage OOB Critical Care Critically Ill Patient YURIY HERNANDEZ DO Aug 24, 2021 10:37
[2021-08-24] MEDS: ASPIRIN 81 MG CHEW (CHILDREN'S ASA) PO SCH (20:54)
[2021-08-24] MEDS: MONTELUKAST 10 MG (SINGULAIR) TAB PO SCH (20:54)
[2021-08-24] MEDS: DULoxetine 30 MG (CYMBALTA) CAP PO SCH (20:54)
[2021-08-25] VITALS (30 sets, daily range): BP systolic 25–163; BP diastolic 69–109
[2021-08-25] MEDS: inSUlin ASPART (NovoLOG) 1 UNIT/0.01 ML (CHARGE PER UNIT) SC SCH ×4 (00:24→17:39)
[2021-08-25] MEDS: LORazepam 0.5 MG (ATIVAN) TABLET PO SCH ×5 (00:31→23:42)
[2021-08-25] MEDS: D5 NS 1000 ML IV SOLUTION 1,000 ML IV SCH (01:37)
[2021-08-25] MEDS: RT-ALBUTEROL/IPRATROPIUM 3 ML (DUONEB) VIAL INH SCH ×6 (02:06→19:11)
[2021-08-25] MEDS ORDERED: NS IV 1000 ML 1,000 ML IV SCH (03:30)
[2021-08-25 04:48] LABS: BASOPHILS % (AUTO) 0 % (0-10); EOSINOPHILS % (AUTO) 0 % (0-10); HEMATOCRIT 27 % (35-52); HEMOGLOBIN 7.9 g/dL (11.5-16.0); LYMPHOCYTES # (AUTO) 1.1 10^3/uL (1.0-4.0); LYMPHOCYTES % (AUTO) 11 % (12-44); MEAN CORPUSCULAR HEMOGLOBIN 23 pg (25-34); MEAN CORPUSCULAR HGB CONC 30 g/dL (32-36); MEAN CORPUSCULAR VOLUME 79 fL (80-99); MEAN PLATELET VOLUME 9.9 fL (9.0-12.2); MONOCYTES # (AUTO) 0.4 10^3/uL (0.0-1.0); MONOCYTES % (AUTO) 4 % (0-12); NEUTROPHILS # (AUTO) 8.9 10^3/uL (1.8-7.8); NEUTROPHILS % (AUTO) 85 % (42-75); PLATELET COUNT 245 10^3/uL (130-400); WHITE BLOOD COUNT 10.4 10^3/uL (4.3-11.0)
[2021-08-25 05:09] LABS: POTASSIUM 3.7 MMOL/L (3.6-5.0)
[2021-08-25 05:10] LABS: CALCIUM 8.3 MG/DL (8.5-10.1)
[2021-08-25 05:11] LABS: TOTAL PROTEIN 5.9 GM/DL (6.4-8.2)
[2021-08-25 05:13] LABS: BILIRUBIN,TOTAL 0.6 MG/DL (0.1-1.0)
[2021-08-25 05:15] LABS: CREATININE SERUM 0.81 MG/DL (0.60-1.30)
[2021-08-25 05:17] LABS: MAGNESIUM 2.3 MG/DL (1.6-2.4)
--- NOTE | 2021-08-25 06:18 | Progress Note - Hospitalist ---
Subjective HPI/CC On Admission Date Seen by Provider: Aug 25, 2021 Time Seen by Provider: 11:00 Subjective/Events-last exam Patient very anxious BiPAP dependent No pain Friends at bedside Wheezing noted Very severe COPD Review of Systems General: Fatigue, Malaise Pulmonary: Dyspnea Focused Exam Lactate Level 08/23/21 13:30: Lactic Acid Level 1.97 Objective Exam Vital Signs Vital Signs Date Time Temp Pulse Resp B/P (MAP) Pulse Ox O2 Delivery O2 Flow Rate FiO2 08/25/21 20:12 36.6 Vapotherm 80.00 25.00 08/25/21 19:12 89 25 95 08/25/21 18:00 144/84 (104) 08/25/21 11:39 80 Capillary Refill : Less Than 3 Seconds General Appearance: Anxious, Chronically ill, Mild Distress Respiratory: Accessory Muscle Use, Respiratory Distress, Wheezing Cardiovascular: Regular Rate, Rhythm Neurologic/Psychiatric: Alert, Oriented x3, No Motor/Sensory Deficits, Normal Mood/Affect Results/Procedures Lab Laboratory Tests 08/25/21 04:30 Patient resulted labs reviewed. Assessment/Plan Assessment and Plan Assess & Plan/Chief Complaint (1) Acute and chronic respiratory failure with hypoxia Status: Acute Assessment & Plan: - Patient admitted to ICU on bipap, will transition to MD as ABG was much improved last night, patient desires to wear bipap when resting, MAT protocol, IV steroids q8hrs, IV antibiotics 08/21: Improving, patient is on home oxygen, will continue to monitor 08/22: On bipap overnight, patient had episode of anxiety and had to be placed on bipap because she said that was the only thing that helped, oxygen rebounded quickly 08/23: Patient with a couple episodes or respiratory distress ON, upon evaluation this AM, patient in moderate to severe distress w/o bipap on. Bipap placed on patient and patient was moved to ICU do to profound distress with hypoxia, repeat CXR, labs and broaded antibiotics to cefepime, notified eICU of change in status 08/24: remains biPAP dependent 08/25: BiPAP (2) Microcytic anemia Assessment & Plan: 08/21: Fe studies pending, will replace fe if low, patient states that she had colonoscopy several years ago with Dr Bains w/o any removal of polyps 08/22: Started on venofer 08/23: Give 1 unit of blood (3) Sepsis Status: Resolved Assessment & Plan: - HDS, will continue to monitor VS Qualifiers: (4) Bilateral pneumonia Status: Acute Assessment & Plan: 08/23: Antibiotics were broadened to Cefepime Qualifiers: Qualified Codes: J18.9 - Pneumonia, unspecified organism (5) CAD (coronary artery disease) Status: Chronic Qualifiers: Qualified Codes: I25.10 - Atherosclerotic heart disease of [place] coronary artery without angina pectoris (6) COPD with exacerbation Status: Acute (7) Elevated d-dimer Status: Acute Assessment & Plan: - CTA: No PE, will transition to lovenox (8) Heavy smoker Status: Chronic (9) Basal cell carcinoma (BCC) of dorsum of nose Status: Acute Assessment & Plan: 08/21: On going treatment in [place] (10) DVT prophylaxis Status: Chronic Assessment & Plan: - Admitted on Heparin, will transition to lovenox (11) Physical debility Status: Acute Assessment & Plan: 08/21: PT/OT encourage OOB Critical Care Critically Ill Patient YURIY HERNANDEZ DO Aug 25, 2021 06:18
[2021-08-25] MEDS: POTASSIUM CL 10MEQ/50ML IVPB 50 ML IV SCH (06:32)
[2021-08-25] MEDS: MAGNESIUM 1 GM/100 ML IVPB 100 ML IV SCH (06:32)
[2021-08-25] MEDS: CEFEPIME 1,000 MG/NS 50 ML IVPB IV SCH ×6 (06:33→22:23)
[2021-08-25] MEDS: methylPREDNISolone 40 MG/ML (Solu-MEDROL) VIAL IV SCH ×2 (06:33→20:37)
[2021-08-25] MEDS: KCL 20 MEQ TAB (K-DUR) PO SCH (06:33)
--- NOTE | 2021-08-25 07:18 | Physical Therapy Progress Note ---
Therapy Progress Note Patient transferred to ICU due to decline in medical/pulmonary status. PT will require new orders when patient is medically stable and able to actively participate with skilled therapy. ANDREW YANG PT Aug 25, 2021 07:17
--- NOTE | 2021-08-25 08:34 | Diagnostic Imaging Report ---
EXAMINATION: Chest radiograph, portable AP view. DATE: 08/25/2021 8:30 AM INDICATION: 66-year-old female, history of congestive heart failure. Pneumonia. Shortness of breath. COMPARISON: August 24, 2021. FINDINGS: There are multifocal bilateral interstitial and/or alveolar opacities which appear unchanged. Heart size and mediastinal contours are unchanged. There is no identified pneumothorax. There is no large pleural effusion. IMPRESSION: 1. Grossly unchanged bilateral interstitial and/or alveolar opacities. Differential considerations would include pulmonary edema, atypical infection, and/or pneumonitis. Components of chronic lung changes are also considered. Dictated by: Dictated on workstation # [id number]
[2021-08-25] MEDS: FAMOTIDINE 20 MG (PEPCID) TABLET PO SCH ×2 (09:18→20:37)
[2021-08-25] MEDS ORDERED: FUROSEMIDE 40 MG/4 ML INJ (LASIX) IVP ONE (10:15)
--- NOTE | 2021-08-25 10:34 | Tele-ICU Progress Note ---
Subjective Date Seen by a Provider: Aug 25, 2021 Time Seen by a Provider: 10:29 Subjective/Events-last exam Available chart/vitals/labs/images reviewed. Video assessment done using telemetry ICU camera, rest of exam as per RN. Discussion with the RN, exam as per RN. Hospital course Today patient remained on a BiPAP ventilation. Earlier she was given a break when she was drinking coffee but she became hypoxic requiring to put back on BiPAP again with 100% FiO2. Today chest x-ray showing some pulmonary vascular congestion. Her urine output also decreased today. Her IV fluids have cut down to KVO and started on IV Lasix. Reviewed with RN in detail Sepsis Event Evaluation Height, Weight, BMI Height: 4'9.00" Weight: 100lbs. 2.0oz. 45.285002hu; 29.42 BMI Method:Stated Focused Exam Lactate Level 08/23/21 13:30: Lactic Acid Level 1.97 Exam Exam Patient acknowledged, consented, and participated in this virtual visit which was conducted using real time audio/video Vital Signs Date Time Temp Pulse Resp B/P (MAP) Pulse Ox O2 Delivery O2 Flow Rate FiO2 08/25/21 10:00 84 14 163/96 (118) 100 Vapotherm 60.00 40.00 08/25/21 09:00 79 20 155/109 (124) 100 NIV Bilevel 55.00 08/25/21 08:30 90 NIV Bilevel 55 08/25/21 08:00 36.5 08/25/21 08:00 80 30 156/103 (120) 92 NIV Bilevel 55.00 08/25/21 07:15 70 15 96 55.00 08/25/21 07:00 74 08/25/21 07:00 72 19 150/101 (117) 95 NIV Bilevel 55.00 08/25/21 06:00 71 16 149/105 (120) 94 NIV Bilevel 55.00 08/25/21 05:00 75 14 146/89 (108) 96 NIV Bilevel 55.00 08/25/21 04:12 36.2 NIV Bilevel 55.00 08/25/21 04:00 93 NIV Bilevel 40.00 55 08/25/21 04:00 77 14 141/97 (112) 94 NIV Bilevel 45.00 08/25/21 03:00 79 16 145/92 (109) 91 NIV Bilevel 45.00 08/25/21 02:07 67 14 91 55.00 08/25/21 02:00 68 19 127/86 (100) 91 NIV Bilevel 45.00 08/25/21 01:00 83 17 131/88 (102) 93 NIV Bilevel 45.00 08/25/21 01:00 80 08/25/21 00:37 NIV Bilevel 45.00 08/25/21 00:00 71 21 136/88 (104) 98 Vapotherm 65.00 40.00 08/25/21 00:00 35.8 Vapotherm 65.00 40.00 08/25/21 00:00 97 Vapotherm 40.00 65 08/24/21 23:00 88 22 123/73 (90) 95 Vapotherm 70.00 40.00 08/24/21 22:42 96 Vapotherm 65 08/24/21 22:00 93 25 122/85 (97) 96 Vapotherm 70.00 40.00 08/24/21 21:13 35.7 95 Vapotherm 70.00 40.00 08/24/21 21:00 88 28 145/99 (114) 97 Vapotherm 60.00 40.00 08/24/21 20:56 Vapotherm 60.00 40.00 08/24/21 20:52 94 Vapotherm 60 08/24/21 20:00 92 NIV Bilevel 50 08/24/21 20:00 87 25 138/85 (102) 96 NIV Bilevel 50.00 08/24/21 19:07 70 22 91 55.00 08/24/21 19:00 80 08/24/21 19:00 73 17 138/98 (111) 91 NIV Bilevel 50.00 08/24/21 18:00 95 27 160/98 (118) 92 NIV Bilevel 50.00 08/24/21 17:00 94 24 144/86 (105) 90 NIV Bilevel 50.00 08/24/21 16:00 98 26 170/98 (122) 91 NIV Bilevel 50.00 08/24/21 15:55 92 NIV Bilevel 50 08/24/21 15:00 95 22 165/97 (119) 93 NIV Bilevel 50.00 08/24/21 14:00 96 29 96 50.00 08/24/21 14:00 105 25 164/92 (116) 100 NIV Bilevel 50.00 08/24/21 13:00 75 16 132/87 (102) 90 NIV Bilevel 50.00 08/24/21 12:38 78 08/24/21 12:00 92 NIV Bilevel 55 08/24/21 12:00 80 16 133/90 (104) 89 NIV Bilevel 50.00 08/24/21 11:48 36.2 08/24/21 11:02 36.1 98 18 145/81 97 NIV Bilevel 50 08/24/21 11:00 96 30 145/81 (102) 96 NIV Bilevel 50.00 08/24/21 10:54 NIV Bilevel 50.00 I & O 08/25/21 07:00 Intake Total 2980 ml Output Total 1175 ml Balance 1805 ml Height & Weight Height: 4'9.00" Weight: 100lbs. 2.0oz. 45.379526ue; 29.42 BMI Method:Stated General Appearance: WD/WN, Anxious, Chronically ill, Mild Distress, Other (bipap) Respiratory: Crackles, Decreased Breath Sounds Cardiovascular: Regular Rate, Rhythm Capillary Refill: Less Than 3 Seconds Gastrointestinal: normal bowel sounds, non tender, soft Neurologic/Psychiatric: Alert Results Lab Laboratory Tests 08/24/21 04:24 08/25/21 04:30 Assessment/Plan Assessment/Plan 1. Acute on chronic respiratory failure with hypoxia. Patient probably has a combination of pneumonia and acute exacerbation of COPD. No PE found on CT of the chest. Chest x-ray reviewed and showed again pulmonary congestion.. She is started on iv lasix. ivf decreased to 10mls/hr 2. Microcytic anemia worsening. Concern for bleeding. She will be transfused 1 unit of packed red blood cells and and today her hb increased to 7.5 gm 3. Acute exacerbation of COPD. Decrease steroids and continue nebulizer treatments 4. Right lower lobe pneumonia. Continue IV antibiotics per primary care. 5. Pulmonary nodule. Follow-up as an outpatient per PCP. 6. Continue blood sugar monitoring and hemoglobin and periodic monitoring with chest x-rays. 7. Discussed with the MEDICAL [employer].. Critical Care: Critically Ill Patient Time spent with patient (mins): 35 URSULA DEAN MD Aug 25, 2021 10:34
[2021-08-25] MEDS: DULoxetine 30 MG (CYMBALTA) CAP PO SCH (20:37)
[2021-08-25] MEDS: MONTELUKAST 10 MG (SINGULAIR) TAB PO SCH (20:37)
[2021-08-25] MEDS: ASPIRIN 81 MG CHEW (CHILDREN'S ASA) PO SCH (20:37)
[2021-08-25] MEDS: LORazepam INJ 2 MG/ML (ATIVAN) VIAL IVP PRN (20:38)
[2021-08-26] VITALS (27 sets, daily range): BP systolic 86–126; BP diastolic 51–86
[2021-08-26] MEDS: DexMEDEtomidine 250 ML DRIP 250 ML IV SCH (00:58)
[2021-08-26] MEDS: inSUlin ASPART (NovoLOG) 1 UNIT/0.01 ML (CHARGE PER UNIT) SC SCH ×4 (01:03→17:45)
[2021-08-26] MEDS: RT-ALBUTEROL/IPRATROPIUM 3 ML (DUONEB) VIAL INH SCH ×6 (02:42→22:08)
[2021-08-26 04:24] LABS: BASOPHILS % (AUTO) 0 % (0-10); EOSINOPHILS % (AUTO) 0 % (0-10); HEMATOCRIT 30 % (35-52); HEMOGLOBIN 8.9 g/dL (11.5-16.0); LYMPHOCYTES # (AUTO) 1.8 10^3/uL (1.0-4.0); LYMPHOCYTES % (AUTO) 12 % (12-44); MEAN CORPUSCULAR HEMOGLOBIN 24 pg (25-34); MEAN CORPUSCULAR HGB CONC 30 g/dL (32-36); MEAN CORPUSCULAR VOLUME 81 fL (80-99); MEAN PLATELET VOLUME 9.8 fL (9.0-12.2); MONOCYTES # (AUTO) 0.6 10^3/uL (0.0-1.0); MONOCYTES % (AUTO) 4 % (0-12); NEUTROPHILS # (AUTO) 12.7 10^3/uL (1.8-7.8); NEUTROPHILS % (AUTO) 83 % (42-75); PLATELET COUNT 267 10^3/uL (130-400); WHITE BLOOD COUNT 15.3 10^3/uL (4.3-11.0)
[2021-08-26 04:35] LABS: ALBUMIN 3.2 GM/DL (3.2-4.5)
[2021-08-26 04:36] LABS: CALCIUM 8.6 MG/DL (8.5-10.1)
[2021-08-26 04:38] LABS: TOTAL PROTEIN 6.3 GM/DL (6.4-8.2)
[2021-08-26 04:39] LABS: BILIRUBIN,TOTAL 0.8 MG/DL (0.1-1.0)
[2021-08-26 04:41] LABS: CREATININE SERUM 0.84 MG/DL (0.60-1.30); PHOSPHORUS 3.6 MG/DL (2.3-4.7)
[2021-08-26 04:44] LABS: MAGNESIUM 2.3 MG/DL (1.6-2.4)
[2021-08-26] MEDS: POTASSIUM CL 10MEQ/50ML IVPB 50 ML IV SCH (05:50)
[2021-08-26] MEDS: LORazepam 0.5 MG (ATIVAN) TABLET PO SCH ×3 (05:50→18:33)
[2021-08-26] MEDS: MAGNESIUM 1 GM/100 ML IVPB 100 ML IV SCH (05:50)
[2021-08-26] MEDS: KCL 20 MEQ TAB (K-DUR) PO SCH (05:51)
[2021-08-26] MEDS: D5 NS 1000 ML IV SOLUTION 1,000 ML IV SCH (06:13)
[2021-08-26] MEDS: CEFEPIME 1,000 MG/NS 50 ML IVPB IV SCH ×6 (06:13→21:03)
--- NOTE | 2021-08-26 06:21 | Progress Note - Hospitalist ---
Subjective HPI/CC On Admission Date Seen by Provider: Aug 26, 2021 Time Seen by Provider: 10:30 Subjective/Events-last exam Patient asleep BiPAP dependence Anxiety when she is awake Precedex helpful Review of Systems Pulmonary: Dyspnea Focused Exam Lactate Level Objective Exam Vital Signs Vital Signs Date Time Temp Pulse Resp B/P (MAP) Pulse Ox O2 Delivery O2 Flow Rate FiO2 08/26/21 15:00 104 18 126/76 (93) 93 Vapotherm 75.00 25.00 08/26/21 12:45 40 08/26/21 07:56 36.0 Capillary Refill : Less Than 3 Seconds General Appearance: No Apparent Distress, WD/WN, Chronically ill, Thin Respiratory: Decreased Breath Sounds, Other (on biPAP) Cardiovascular: Regular Rate, Rhythm Results/Procedures Lab Laboratory Tests 08/26/21 04:16 Patient resulted labs reviewed. Assessment/Plan Assessment and Plan Assess & Plan/Chief Complaint (1) Acute and chronic respiratory failure with hypoxia Status: Acute Assessment & Plan: - Patient admitted to ICU on bipap, will transition to IA as ABG was much improved last night, patient desires to wear bipap when resting, MAT protocol, IV steroids q8hrs, IV antibiotics 08/21: Improving, patient is on home oxygen, will continue to monitor 08/22: On bipap overnight, patient had episode of anxiety and had to be placed on bipap because she said that was the only thing that helped, oxygen rebounded quickly 08/23: Patient with a couple episodes or respiratory distress ON, upon evaluation this AM, patient in moderate to severe distress w/o bipap on. Bipap placed on patient and patient was moved to ICU do to profound distress with hypoxia, repeat CXR, labs and broaded antibiotics to cefepime, notified eICU of change in status 08/24: remains biPAP dependent 08/25: BiPAP 08/26: BiPAP (2) Microcytic anemia Assessment & Plan: 08/21: Fe studies pending, will replace fe if low, patient states that she had colonoscopy several years ago with Dr Bains w/o any removal of polyps 08/22: Started on venofer 08/23: Give 1 unit of blood 08/26: Hgb stable (3) Sepsis Status: Resolved Assessment & Plan: - HDS, will continue to monitor VS Qualifiers: (4) Bilateral pneumonia Status: Acute Assessment & Plan: 08/23: Antibiotics were broadened to Cefepime Qualifiers: Qualified Codes: J18.9 - Pneumonia, unspecified organism (5) CAD (coronary artery disease) Status: Chronic Qualifiers: Qualified Codes: I25.10 - Atherosclerotic heart disease of [place] coronary artery without angina pectoris (6) COPD with exacerbation Status: Acute (7) Elevated d-dimer Status: Acute Assessment & Plan: - CTA: No PE, will transition to lovenox (8) Heavy smoker Status: Chronic (9) Basal cell carcinoma (BCC) of dorsum of nose Status: Acute Assessment & Plan: 08/21: On going treatment in [place] (10) DVT prophylaxis Status: Chronic Assessment & Plan: - Admitted on Heparin, will transition to lovenox (11) Physical debility Status: Acute Assessment & Plan: 08/21: PT/OT encourage OOB Critical Care Critically Ill Patient YURIY HERNANDEZ DO Aug 26, 2021 06:21
--- NOTE | 2021-08-26 08:22 | Diagnostic Imaging Report ---
INDICATION: Congestive heart failure, ICU management. TECHNIQUE: Single view chest 6:04 AM. CORRELATION STUDY: 08/25/2021 FINDINGS: Heart size remains enlarged. Continued vascular congestion and edema but overall slightly improved. Rather pronounced mixed alveolar and interstitial opacities throughout both lung kin[place] persisting but may be slightly improved as well. IMPRESSION: 1. Extensive interstitial and alveolar opacities as well as prominent vascularity do persist but overall appearing slightly improved from prior. Dictated by: Dictated on workstation # [id number]
[2021-08-26] MEDS: IRON SUCROSE 200 MG/10 ML (VENOFER) VIAL IV SCH (08:24)
[2021-08-26] MEDS: methylPREDNISolone 40 MG/ML (Solu-MEDROL) VIAL IV SCH ×2 (08:24→21:02)
--- NOTE | 2021-08-26 10:14 | Tele-ICU Progress Note ---
Subjective Date Seen by a Provider: Aug 26, 2021 Time Seen by a Provider: 09:30 Subjective/Events-last exam This virtual visit was conducted using real time audio/video. Thank you for asking us to see this patient for respiratory insufficiency due to RLL pna, AECOPD. Recent events: Precedex and Metoprolol held. PMH: COPD on home O2, CKD, CAD/stent. SH: smoking history: Current. PE: VSS. O2 sat 92% on Vapotherm 40%. HEENT: No obvious masses, adenopathy or JVD. Chest: clear to auscultation. CV: RRR S1 S2 No murmur or added sounds. Abd: Non-tender. Bowel sounds Y. : Unremarkable. Preston Y. [employer]/psychiatric: Grossly intact. No obvious focal findings. Extremities: No edema. Capillary refill < 3 seconds. Skin: unremarkable. Results: Elevated WCC 15.3, BUN 29, BG 128. Decreased Na 134. CXR:hyperinflated, B congestion. . Available chart/ vitals / labs / images reviewed. Video assessment done using teleICU camera, rest of exam as per RN. A/P: Respiratory insufficiency: Continue present management with VT, duonebs, medrol, singulair. Monitor for increasing oxygenation needs and/or need for intubation. Critical Care: critically ill patient. Cont. abx, lasix, pepcid, statin. Discussed with ROSALBA Fisher. Asked RN to reach out to eICU if any questions or concerns later. Time spent with patient/coordination of care with other health professionals (mins): 30 Sepsis Event Evaluation Height, Weight, BMI Height: 4'9.00" Weight: 100lbs. 2.0oz. 45.637230dn; 29.04 BMI Method:Stated Focused Exam Lactate Level 08/23/21 13:30: Lactic Acid Level 1.97 Exam Exam Patient acknowledged, consented, and participated in this virtual visit which was conducted using real time audio/video Vital Signs Date Time Temp Pulse Resp B/P (MAP) Pulse Ox O2 Delivery O2 Flow Rate FiO2 08/26/21 09:00 54 12 105/67 (80) 92 NIV Bilevel 40.00 08/26/21 08:00 63 15 116/77 (90) 91 NIV Bilevel 40.00 08/26/21 07:56 36.0 08/26/21 07:00 55 12 89/64 (72) 92 NIV Bilevel 40.00 08/26/21 07:00 58 08/26/21 06:00 60 21 118/74 (89) 93 NIV Bilevel 40.00 08/26/21 05:00 55 18 110/80 (90) 92 NIV Bilevel 40.00 08/26/21 04:00 62 14 118/81 (93) 92 NIV Bilevel 40.00 08/26/21 04:00 95 NIV Bilevel 40 08/26/21 03:07 35.7 60 96 40 08/26/21 03:00 62 14 108/67 (81) 92 NIV Bilevel 40.00 08/26/21 02:42 60 14 96 40.00 08/26/21 02:00 62 14 109/74 (86) 92 NIV Bilevel 40.00 08/26/21 01:00 66 08/26/21 01:00 64 14 113/86 (95) 93 NIV Bilevel 40.00 08/26/21 00:58 66 08/26/21 00:00 61 17 110/78 (89) 93 NIV Bilevel 40.00 08/26/21 00:00 95 NIV Bilevel 25.00 40 08/25/21 23:47 35.7 NIV Bilevel 40.00 08/25/21 23:01 NIV Bilevel 40.00 08/25/21 23:00 78 18 117/76 (90) 95 Vapotherm 80.00 25.00 08/25/21 22:56 86 17 89 40.00 08/25/21 22:00 76 16 119/70 (86) 92 Vapotherm 80.00 25.00 08/25/21 21:00 91 24 131/79 (96) 95 Vapotherm 80.00 25.00 08/25/21 20:12 36.6 Vapotherm 80.00 25.00 08/25/21 20:00 95 Vapotherm 25.00 85 08/25/21 20:00 82 20 137/81 (99) 93 NIV Bilevel 40.00 08/25/21 19:12 89 25 95 40.00 08/25/21 19:00 86 15 140/80 (100) 94 NIV Bilevel 40.00 08/25/21 19:00 90 08/25/21 18:00 86 16 144/84 (104) 95 NIV Bilevel 40.00 08/25/21 17:00 94 16 151/79 (103) 91 NIV Bilevel 40.00 08/25/21 16:30 94 NIV Bilevel 40.00 08/25/21 16:29 36.3 NIV Bilevel 40.00 08/25/21 16:00 98 23 135/74 (94) 98 Vapotherm 100.00 25.00 08/25/21 15:26 Vapotherm 100.00 25.00 08/25/21 15:00 109 19 118/69 (85) 98 NIV Bilevel 40.00 08/25/21 14:18 NIV Bilevel 40.00 08/25/21 14:16 74 15 94 40.00 08/25/21 14:00 109 34 118/69 (85) 98 Vapotherm 40.00 30.00 08/25/21 13:54 Vapotherm 40.00 30.00 08/25/21 13:00 109 34 118/69 (85) 98 Vapotherm 70.00 40.00 08/25/21 13:00 106 08/25/21 12:00 99 25 130/77 (94) 100 Vapotherm 70.00 40.00 08/25/21 11:47 36.4 99 Vapotherm 70.00 40.00 08/25/21 11:39 93 Vapotherm 40.00 80 08/25/21 11:00 93 28 140/100 (113) 97 Vapotherm 60.00 40.00 08/25/21 10:44 74 15 94 55.00 I & O 08/26/21 07:00 Intake Total 1200 ml Output Total 1750 ml Balance -550 ml Height & Weight Height: 4'9.00" Weight: 100lbs. 2.0oz. 45.260774pn; 29.04 BMI Method:Stated General Appearance: Anxious, Chronically ill, Mild Distress Respiratory: Accessory Muscle Use, Respiratory Distress, Wheezing Cardiovascular: Regular Rate, Rhythm Capillary Refill: Less Than 3 Seconds Gastrointestinal: normal bowel sounds, non tender, soft Neurologic/Psychiatric: Alert, Oriented x3, No Motor/Sensory Deficits, Normal Mood/Affect Results Lab Laboratory Tests 08/25/21 04:30 08/26/21 04:16 Assessment/Plan Assessment/Plan See free text. Critical Care: Critically Ill Patient JESU ZHU MD Aug 26, 2021 10:14
[2021-08-26] MEDS: FAMOTIDINE 20 MG (PEPCID) TABLET PO SCH ×2 (13:22→21:03)
[2021-08-26] MEDS ORDERED: NS IV 1000 ML 1,000 ML IV SCH (15:00)
[2021-08-26] MEDS: FUROSEMIDE 40 MG/4 ML INJ (LASIX) IVP SCH (16:30)
[2021-08-26] MEDS: ASPIRIN 81 MG CHEW (CHILDREN'S ASA) PO SCH (21:02)
[2021-08-26] MEDS: DULoxetine 30 MG (CYMBALTA) CAP PO SCH (21:03)
[2021-08-26] MEDS: MONTELUKAST 10 MG (SINGULAIR) TAB PO SCH (21:03)
[2021-08-27] VITALS (30 sets, daily range): BP systolic 86–129; BP diastolic 52–99
[2021-08-27] MEDS: LORazepam 0.5 MG (ATIVAN) TABLET PO SCH ×5 (00:12→20:14)
[2021-08-27] MEDS: inSUlin ASPART (NovoLOG) 1 UNIT/0.01 ML (CHARGE PER UNIT) SC SCH ×5 (00:12→23:36)
[2021-08-27] MEDS: RT-ALBUTEROL/IPRATROPIUM 3 ML (DUONEB) VIAL INH SCH ×6 (02:25→23:34)
[2021-08-27] MEDS: D5 NS 1000 ML IV SOLUTION 1,000 ML IV SCH (04:27)
[2021-08-27 05:11] LABS: BASOPHILS % (AUTO) 0 % (0-10); EOSINOPHILS % (AUTO) 0 % (0-10); HEMATOCRIT 29 % (35-52); HEMOGLOBIN 8.6 g/dL (11.5-16.0); LYMPHOCYTES # (AUTO) 1.8 10^3/uL (1.0-4.0); LYMPHOCYTES % (AUTO) 13 % (12-44); MEAN CORPUSCULAR HEMOGLOBIN 24 pg (25-34); MEAN CORPUSCULAR HGB CONC 29 g/dL (32-36); MEAN CORPUSCULAR VOLUME 81 fL (80-99); MEAN PLATELET VOLUME 10.4 fL (9.0-12.2); MONOCYTES # (AUTO) 0.7 10^3/uL (0.0-1.0); MONOCYTES % (AUTO) 5 % (0-12); NEUTROPHILS % (AUTO) 80 % (42-75); PLATELET COUNT 230 10^3/uL (130-400); WHITE BLOOD COUNT 13.7 10^3/uL (4.3-11.0)
[2021-08-27] MEDS: CEFEPIME 1,000 MG/NS 50 ML IVPB IV SCH ×6 (05:16→20:14)
[2021-08-27 05:40] LABS: ALBUMIN 3.1 GM/DL (3.2-4.5); POTASSIUM 4.1 MMOL/L (3.6-5.0)
[2021-08-27 05:41] LABS: CALCIUM 8.2 MG/DL (8.5-10.1)
[2021-08-27 05:43] LABS: TOTAL PROTEIN 6.1 GM/DL (6.4-8.2)
[2021-08-27 05:44] LABS: BILIRUBIN,TOTAL 0.8 MG/DL (0.1-1.0)
[2021-08-27] MEDS: KCL 20 MEQ TAB (K-DUR) PO SCH (05:44)
[2021-08-27] MEDS: POTASSIUM CL 10MEQ/50ML IVPB 50 ML IV SCH (05:44)
[2021-08-27 05:46] LABS: CREATININE SERUM 0.79 MG/DL (0.60-1.30); PHOSPHORUS 3.4 MG/DL (2.3-4.7)
[2021-08-27 05:49] LABS: MAGNESIUM 2.2 MG/DL (1.6-2.4)
[2021-08-27] MEDS: MAGNESIUM 1 GM/100 ML IVPB 100 ML IV SCH (05:50)
[2021-08-27] MEDS: FUROSEMIDE 40 MG/4 ML INJ (LASIX) IVP SCH ×2 (06:00→17:22)
--- NOTE | 2021-08-27 06:09 | Progress Note - Hospitalist ---
Subjective HPI/CC On Admission Date Seen by Provider: Aug 27, 2021 Time Seen by Provider: 09:00 Subjective/Events-last exam Pt is BiPAP dependent White count is 13.7 Hemoglobin is 8.6 BiPAP settings are 14/8 at 40% Albumin is 3.1 Pt is sleeping with Precedex Review of Systems General: Fatigue, Malaise Pulmonary: Dyspnea Objective Exam Vital Signs Vital Signs Date Time Temp Pulse Resp B/P (MAP) Pulse Ox O2 Delivery O2 Flow Rate FiO2 08/28/21 06:00 63 14 103/64 (77) 93 Vapotherm 45.00 18.00 08/28/21 04:49 50 08/28/21 04:00 36.5 Capillary Refill : Less Than 3 Seconds General Appearance: No Apparent Distress, WD/WN, Chronically ill Respiratory: No Accessory Muscle Use, No Respiratory Distress, Crackles, Decreased Breath Sounds, Wheezing Cardiovascular: Regular Rate, Rhythm Results/Procedures Lab Laboratory Tests 08/28/21 04:18 Patient resulted labs reviewed. Assessment/Plan Assessment and Plan Assess & Plan/Chief Complaint (1) Acute and chronic respiratory failure with hypoxia Status: Acute Assessment & Plan: - Patient admitted to ICU on bipap, will transition to NC as ABG was much improved last night, patient desires to wear bipap when resting, MAT protocol, IV steroids q8hrs, IV antibiotics 08/21: Improving, patient is on home oxygen, will continue to monitor 08/22: On bipap overnight, patient had episode of anxiety and had to be placed on bipap because she said that was the only thing that helped, oxygen rebounded quickly 08/23: Patient with a couple episodes or respiratory distress ON, upon evaluation this AM, patient in moderate to severe distress w/o bipap on. Bipap placed on patient and patient was moved to ICU do to profound distress with hypoxia, repeat CXR, labs and broaded antibiotics to cefepime, notified eICU of change in status 08/24: remains biPAP dependent 08/25: BiPAP 08/26: BiPAP 08/26: BiPAP (2) Microcytic anemia Assessment & Plan: 08/21: Fe studies pending, will replace fe if low, patient s tates that she had colonoscopy several years ago with Dr Bains w/o any removal of polyps 08/22: Started on venofer 08/23: Give 1 unit of blood 08/26: Hgb stable (3) Sepsis Status: Resolved Assessment & Plan: - HDS, will continue to monitor VS Qualifiers: (4) Bilateral pneumonia Status: Acute Assessment & Plan: 08/23: Antibiotics were broadened to Cefepime Qualifiers: Qualified Codes: J18.9 - Pneumonia, unspecified organism (5) CAD (coronary artery disease) Status: Chronic Qualifiers: Qualified Codes: I25.10 - Atherosclerotic heart disease of [place] coronary artery without angina pectoris (6) COPD with exacerbation Status: Acute (7) Elevated d-dimer Status: Acute Assessment & Plan: - CTA: No PE, will transition to lovenox (8) Heavy smoker Status: Chronic (9) Basal cell carcinoma (BCC) of dorsum of nose Status: Acute Assessment & Plan: 08/21: On going treatment in [place] (10) DVT prophylaxis Status: Chronic Assessment & Plan: - Admitted on Heparin, will transition to lovenox (11) Physical debility Status: Acute Assessment & Plan: 08/21: PT/OT encourage OOB Critical Care Critically Ill Patient YURIY HERNANDEZ DO Aug 27, 2021 06:09
--- NOTE | 2021-08-27 07:16 | Physical Therapy Progress Note ---
Therapy Progress Note PT will require new orders when patient is medically stable and able to actively participate with skilled therapy. PT to remove patient from current therapy schedule at this time. ANDREW YANG PT Aug 27, 2021 07:16
[2021-08-27] MEDS: methylPREDNISolone 40 MG/ML (Solu-MEDROL) VIAL IV SCH ×2 (10:12→20:14)
[2021-08-27] MEDS: FAMOTIDINE 20 MG (PEPCID) TABLET PO SCH ×2 (10:12→20:14)
--- NOTE | 2021-08-27 17:36 | Tele-ICU Consult ---
History of Present Illness History of Present Illness Date Seen by Provider: Aug 27, 2021 Time Seen by Provider: 10:21 Date of Admission (Tele-ICU Physician , Progress Note ) Available chart/ vitals / labs / Images reviewed Video assessment done using teleICU camera, rest of exam as per RN Discussed with RN , EXAM PER RN Hospital course: (08/19) 66/F- Acute copd exacerbation, bipap, extensive copd/cv hx on home O2.--BIPAP. 08/21 0 on NC --> med floor 08/23 transfered to ICU on BIPAP 28/08 08/27- BIPPAP night 40 % - rr18 TV 800 40 12 A/P Acute resp failure ( PNA and AECOPD, no PE on CT 08/19) - BIPAP 02/19 r 19 tv 600 30 % - /7 0 on NC --> med floor 08/22 placed onBipap 02/19 , but with resp acidosis BIPAP changed to28/08 08/23 transfered to ICU on BIPAP 28/08 rr 26 TV 100 , MV 24-28 L AAOx1 - VO vs WORSENIG PNA - CXR is still with similar appearance - ? more agressive diuresis to try ? AECOPD - cont steroids IV 40 bid h/o CHF - ECHO 2020 - EF 65 % - on lsix 20 bid iv RLL PNA - cont abx - NEG flu , covid - follow cxr and recheck PCT Elev ddimer 08/19 - no PE on CT 08/19) - proph dose heparin ON HOLD since 08/24 Anemia - s/p transfusion 1 unit 08/24 - on h2bl - stable now Pulm nodule - f/up outpt as per PCP follow up BS on steroids Lines : (Central Line Necessity Reviewed) [place]: OG: Nutrition: Analgesia: Anxiety/ delirium VTE Prophylaxis: hep sq ON HOLD Stress Ulcer Prophylaxis: H2bl - ON STEROIDS Plans in collaboration with bedside consultants and IM MDs. Discussed with RN to reach out if any questions or concerns A total of 31 minutes of critical care time was devoted to this patient today, required to treat and/or prevent further deterioration of critical care condition ( as above) . Allergies and Home Medications Allergies Coded Allergies: mirtazapine (Verified Adverse Reaction, Unknown, horrible nightmares, 07/24/18) Home Medications Albuterol Sulfate 1 Puff Puff, 2 PUFF IH Q4H PRN for SHORTNESS OF BREATH, ( Reported) Albuterol Sulfate 2.5 Mg/3 Ml (0.083 %) Vial.neb, 2.5 MG INH Q6H PRN for SHORTNESS OF BREATH, (Reported) Aspirin 81 Mg Tab.chew, 81 MG PO HS, (Reported) Atorvastatin Calcium 40 Mg Tablet, 40 MG PO HS, (Reported) Buprenorphine HCl 8 Mg Tab.subl, 8 MG SL BID, (Reported) Clopidogrel Bisulfate 75 Mg Tablet, 75 MG PO HS, (Reported) Cyproheptadine HCl 4 Mg Tablet, 4 MG PO HS, (Reported) Duloxetine HCl 60 Mg Capsule.dr, 120 MG PO HS, (Reported) TAKE 2 (60MG) TABS Fluticasone/Salmeterol 500 Mcg-50 Mcg/Dose Blst.w.dev, 1 EACH IH BID, (Reported) Furosemide 40 Mg Tablet, 40 MG PO DAILY, (Reported) Metoprolol Succinate 25 Mg Tab.er.24h, 12.5 MG PO DAILY, (Reported) TAKES 1/2 OF 25MG TAB Montelukast Sodium 10 Mg Tablet, 10 MG PO HS, (Reported) Nitroglycerin 0.4 Mg Tab.subl, 0.4 MG SL PRN PRN for CHEST PAIN, (Reported) Omeprazole 40 Mg Capsule.dr, 40 MG PO HS, (Reported) Potassium Chloride 20 Meq Tab.er.prt, 20 MEQ PO DAILY, (Reported) Suvorexant 5 Mg Tablet, 10 MG PO HS, (Reported) TAKES 2 (5MG) TABS Tiotropium Dolph 18 Mcg Aerp, 1 INH IH DAILY, (Reported) Past Medical/Social/Family Hx Patient Social History Tobacco Use?: Yes Tobacco type used: Cigarettes Smoking Status: Current Everyday Smoker Smokeless Tobacco Frequency: Never a User Use of E-Cig and/or Vaping dev: No Substance use?: No Alcohol Use?: No Pt stated abuse/neglect: No Immunizations Up To Date Influenza Vaccine Up-to-Date: Yes; Up-to-Date Date of Pneumonia Vaccine: Dec 18, 2016 Current Status status: No Advance Directives: No Primary Language: Nigerian Preferred Spoken Language: Nigerian Past Medical History COPD HTN CAD previous STEMI with PCI Heavy smoker Family Medical History Family Hx: NC Review of Systems Constitutional: see HPI Focused Exam Height, Weight, BMI Height: 4'9.00" Weight: 100lbs. 2.0oz. 45.426007rt; 29.42 BMI Method:Stated Exam Exam Patient acknowledged, consented, and participated in this virtual visit which was conducted using real time audio/video Vital Signs Date Time Temp Pulse Resp B/P (MAP) Pulse Ox O2 Delivery O2 Flow Rate FiO2 08/27/21 16:15 36.2 Vapotherm 65.00 25.00 08/27/21 16:00 95 NIV Bilevel 40 08/27/21 15:00 91 18 121/79 (93) 91 NIV Bilevel 40.00 08/27/21 14:14 73 14 97 40.00 08/27/21 14:00 77 12 116/69 (85) 96 NIV Bilevel 40.00 08/27/21 13:00 80 16 123/99 (107) 96 NIV Bilevel 40.00 08/27/21 12:30 81 08/27/21 12:00 36.7 08/27/21 12:00 79 14 122/88 (99) 92 NIV Bilevel 40.00 08/27/21 12:00 95 NIV Bilevel 40 08/27/21 11:00 72 24 113/68 (83) 93 NIV Bilevel 40.00 08/27/21 10:56 73 15 93 40.00 08/27/21 10:00 70 19 108/71 (83) 94 NIV Bilevel 40.00 08/27/21 09:00 71 28 112/72 (85) 94 NIV Bilevel 40.00 08/27/21 08:00 72 17 109/73 (85) 94 NIV Bilevel 40.00 08/27/21 08:00 95 NIV Bilevel 40 08/27/21 07:55 36.4 08/27/21 07:25 68 15 96 40.00 08/27/21 07:00 63 15 120/87 (98) 93 NIV Bilevel 40.00 08/27/21 06:34 62 08/27/21 06:00 75 16 107/75 (87) 94 NIV Bilevel 40.00 08/27/21 05:00 64 12 121/82 (95) 92 NIV Bilevel 40.00 08/27/21 04:01 36.1 08/27/21 04:00 65 12 110/78 (94) 92 NIV Bilevel 40.00 08/27/21 03:30 36.1 NIV Bilevel 40.00 08/27/21 03:00 94 NIV Bilevel 40 08/27/21 03:00 69 15 109/78 (88) 95 NIV Bilevel 40.00 08/27/21 02:25 64 15 95 40.00 08/27/21 02:00 67 17 104/91 (95) 95 NIV Bilevel 40.00 08/27/21 01:00 70 08/27/21 01:00 70 13 98/68 (78) 93 NIV Bilevel 40.00 08/27/21 00:10 95 NIV Bilevel 40 08/27/21 00:00 36.5 76 17 109/66 (80) 95 NIV Bilevel 40.00 08/27/21 00:00 79 22 109/66 (78) 92 NIV Bilevel 40.00 08/26/21 23:00 86 32 121/74 (96) 94 NIV Bilevel 40.00 08/26/21 22:08 87 26 98 40.00 08/26/21 22:04 NIV Bilevel 40.00 08/26/21 22:00 93 25 94/58 (64) 96 Vapotherm 65.00 25.00 08/26/21 21:00 89 16 95/51 (66) 96 Vapotherm 65.00 25.00 08/26/21 20:00 89 16 94/55 (70) 99 Vapotherm 65.00 25.00 08/26/21 19:59 36.3 08/26/21 19:49 Vapotherm 65.00 25.00 08/26/21 19:45 Vapotherm 50.00 25.00 08/26/21 19:40 100 Vapotherm 25.00 75 08/26/21 19:00 90 08/26/21 19:00 95 20 110/58 (75) 100 Vapotherm 75.00 25.00 08/26/21 18:56 95 Vapotherm 25.00 75 08/26/21 18:00 87 21 110/70 (83) 100 Vapotherm 75.00 25.00 I & O 08/27/21 07:00 Intake Total 2610 ml Output Total 1685 ml Balance 925 ml Height & Weight Height: 4'9.00" Weight: 100lbs. 2.0oz. 45.156637fj; 29.42 BMI Method:Stated General Appearance: No Apparent Distress, WD/WN, Chronically ill, Thin Respiratory: Decreased Breath Sounds, Other (on biPAP) Cardiovascular: Regular Rate, Rhythm Capillary Refill: Less Than 3 Seconds Gastrointestinal: normal bowel sounds, non tender, soft Neurologic/Psychiatric: Alert, Oriented x3, No Motor/Sensory Deficits, Normal Mood/Affect Results Lab Laboratory Tests 08/26/21 04:16 08/27/21 04:30 Assessment/Plan Assessment/Plan ` GILMAR MONTEZ MD Aug 27, 2021 17:36
[2021-08-27] MEDS: ASPIRIN 81 MG CHEW (CHILDREN'S ASA) PO SCH (20:14)
[2021-08-27] MEDS: DULoxetine 30 MG (CYMBALTA) CAP PO SCH (20:14)
[2021-08-27] MEDS: MONTELUKAST 10 MG (SINGULAIR) TAB PO SCH (20:14)
[2021-08-28] VITALS (26 sets, daily range): BP systolic 91–148; BP diastolic 58–98
[2021-08-28] MEDS: DexMEDEtomidine 250 ML DRIP 250 ML IV SCH (02:19)
[2021-08-28] MEDS: RT-ALBUTEROL/IPRATROPIUM 3 ML (DUONEB) VIAL INH SCH ×6 (02:47→22:05)
[2021-08-28] MEDS: D5 NS 1000 ML IV SOLUTION 1,000 ML IV SCH ×2 (04:41→07:40)
[2021-08-28] MEDS: CEFEPIME 1,000 MG/NS 50 ML IVPB IV SCH ×2 (04:41)
[2021-08-28] MEDS: LORazepam 0.5 MG (ATIVAN) TABLET PO SCH ×3 (04:43→17:29)
[2021-08-28 05:07] LABS: BASOPHILS % (AUTO) 0 % (0-10); EOSINOPHILS % (AUTO) 0 % (0-10); HEMATOCRIT 29 % (35-52); HEMOGLOBIN 8.6 g/dL (11.5-16.0); LYMPHOCYTES # (AUTO) 1.9 10^3/uL (1.0-4.0); LYMPHOCYTES % (AUTO) 13 % (12-44); MEAN CORPUSCULAR HEMOGLOBIN 24 pg (25-34); MEAN CORPUSCULAR HGB CONC 30 g/dL (32-36); MEAN CORPUSCULAR VOLUME 81 fL (80-99); MEAN PLATELET VOLUME 10.1 fL (9.0-12.2); MONOCYTES # (AUTO) 1.1 10^3/uL (0.0-1.0); MONOCYTES % (AUTO) 7 % (0-12); NEUTROPHILS # (AUTO) 10.9 10^3/uL (1.8-7.8); NEUTROPHILS % (AUTO) 77 % (42-75); PLATELET COUNT 264 10^3/uL (130-400); WHITE BLOOD COUNT 14.2 10^3/uL (4.3-11.0)
[2021-08-28 05:20] LABS: ALBUMIN 2.8 GM/DL (3.2-4.5); POTASSIUM 3.6 MMOL/L (3.6-5.0)
[2021-08-28 05:21] LABS: CALCIUM 7.8 MG/DL (8.5-10.1)
[2021-08-28 05:23] LABS: TOTAL PROTEIN 5.4 GM/DL (6.4-8.2)
[2021-08-28 05:24] LABS: BILIRUBIN,TOTAL 0.6 MG/DL (0.1-1.0)
[2021-08-28 05:26] LABS: CREATININE SERUM 0.77 MG/DL (0.60-1.30); PHOSPHORUS 2.6 MG/DL (2.3-4.7)
[2021-08-28 05:29] LABS: MAGNESIUM 2.1 MG/DL (1.6-2.4)
[2021-08-28] MEDS: FUROSEMIDE 40 MG/4 ML INJ (LASIX) IVP SCH ×2 (06:30→17:29)
[2021-08-28] MEDS: POTASSIUM CL 10MEQ/50ML IVPB 50 ML IV SCH (06:48)
[2021-08-28] MEDS: MAGNESIUM 1 GM/100 ML IVPB 100 ML IV SCH (06:49)
--- NOTE | 2021-08-28 06:59 | Progress Note - Hospitalist ---
Subjective HPI/CC On Admission Date Seen by Provider: Aug 28, 2021 Time Seen by Provider: 09:30 Subjective/Events-last exam Pt is doing well but on 6L high flow Wheezing still IS and [place] maintained PT and OT will be initiated Review of Systems General: Fatigue Pulmonary: Dyspnea Objective Exam Vital Signs Vital Signs Date Time Temp Pulse Resp B/P (MAP) Pulse Ox O2 Delivery O2 Flow Rate FiO2 08/28/21 20:00 34.0 08/28/21 18:29 95 High Flow N/C 6.00 08/28/21 18:00 82 14 137/85 (102) 08/28/21 06:56 65 Capillary Refill : Less Than 3 Seconds General Appearance: WD/WN, Chronically ill Respiratory: Accessory Muscle Use, Decreased Breath Sounds, Wheezing Cardiovascular: Regular Rate, Rhythm Results/Procedures Lab Laboratory Tests 08/28/21 04:18 Patient resulted labs reviewed. Assessment/Plan Assessment and Plan Assess & Plan/Chief Complaint (1) Acute and chronic respiratory failure with hypoxia Status: Acute Assessment & Plan: - Patient admitted to ICU on bipap, will transition to MT as ABG was much improved last night, patient desires to wear bipap when resting, MAT protocol, IV steroids q8hrs, IV antibiotics 08/21: Improving, patient is on home oxygen, will continue to monitor 08/22: On bipap overnight, patient had episode of anxiety and had to be placed on bipap because she said that was the only thing that helped, oxygen rebounded quickly 08/23: Patient with a couple episodes or respiratory distress ON, upon evaluation this AM, patient in moderate to severe distress w/o bipap on. Bipap placed on patient and patient was moved to ICU do to profound distress with hypoxia, repeat CXR, labs and broaded antibiotics to cefepime, notified eICU of change in status 08/24: remains biPAP dependent 08/25: BiPAP 08/26: BiPAP 08/26: BiPAP 08/28: BiPAP (2) Microcytic anemia Assessment & Plan: 08/21: Fe studies pending, will replace fe if low, patient states that she had colonoscopy several years ago with Dr Bains w/o any removal of polyps 08/22: Started on venofer 08/23: Give 1 unit of blood 08/26: Hgb stable (3) Sepsis Status: Resolved Assessment & Plan: - HDS, will continue to monitor VS Qualifiers: (4) Bilateral pneumonia Status: Acute Assessment & Plan: 08/23: Antibiotics were broadened to Cefepime Qualifiers: Qualified Codes: J18.9 - Pneumonia, unspecified organism (5) CAD (coronary artery disease) Status: Chronic Qualifiers: Qualified Codes: I25.10 - Atherosclerotic heart disease of [place] coronary artery without angina pectoris (6) COPD with exacerbation Status: Acute (7) Elevated d-dimer Status: Acute Assessment & Plan: - CTA: No PE, will transition to lovenox (8) Heavy smoker Status: Chronic (9) Basal cell carcinoma (BCC) of dorsum of nose Status: Acute Assessment & Plan: 08/21: On going treatment in [place] (10) DVT prophylaxis Status: Chronic Assessment & Plan: - Admitted on Heparin, will transition to lovenox (11) Physical debility Status: Acute Assessment & Plan: 08/21: PT/OT encourage OOB Critical Care Critically Ill Patient YURIY HERNANDEZ DO Aug 28, 2021 06:59
[2021-08-28] MEDS: inSUlin ASPART (NovoLOG) 1 UNIT/0.01 ML (CHARGE PER UNIT) SC SCH ×3 (08:04→17:32)
[2021-08-28] MEDS: KCL 20 MEQ TAB (K-DUR) PO SCH (08:04)
[2021-08-28] MEDS: methylPREDNISolone 40 MG/ML (Solu-MEDROL) VIAL IV SCH ×2 (08:05→20:35)
[2021-08-28] MEDS: IRON SUCROSE 200 MG/10 ML (VENOFER) VIAL IV SCH (08:05)
[2021-08-28] MEDS: FAMOTIDINE 20 MG (PEPCID) TABLET PO SCH ×2 (08:05→20:36)
--- NOTE | 2021-08-28 10:06 | Tele-ICU Progress Note ---
Subjective Date Seen by a Provider: Aug 28, 2021 Time Seen by a Provider: 10:05 Subjective/Events-last exam (Tele-ICU Physician , Progress Note ) Available chart/ vitals / labs / Images reviewed Video assessment done using teleICU camera, rest of exam as per RN Discussed with RN , EXAM PER RN Hospital course: (08/19) 66/F- Acute copd exacerbation, bipap, extensive copd/cv hx on home O2.--BIPAP. 08/21 0 on NC --> med floor 08/23 transfered to ICU on BIPAP 28/08 08/27- BIPPAP night 40 % - rr18 TV 800 40 12 A/P Acute resp failure ( PNA and AECOPD, no PE on CT 08/19) - BIPAP 02/19 r 19 tv 600 30 % - /7 0 on NC --> med floor 08/22 placed onBipap 02/19 , but with resp acidosis BIPAP changed to28/08 08/23 transfered to ICU on BIPAP 28/08 rr 26 TV 100 , MV 24-28 L AAOx1 08/28 - 6 L nc ( vapotherm overnight ) was on PRECEDEX - ativan prn -- NEED TO WEAN OFF AECOPD - cont steroids IV 40 bid h/o CHF - ECHO 2020 - EF 65 % - on lsix 20 bid iv RLL PNA - cont abx - NEG flu , covid - follow cxr and recheck PCT Elev ddimer 08/19 - no PE on CT 08/19) - proph dose heparin ON HOLD since 08/24 - suggest to resume today , also need to try OOB Anemia - s/p transfusion 1 unit 08/24 - on h2bl - stable now Pulm nodule - f/up outpt as per PCP follow up BS on steroids Lines : periph (Central Line Necessity Reviewed) [place]: + OG: Nutrition: po Analgesia: Anxiety/ delirium - to wean off precedex , ativan prn VTE Prophylaxis: hep sq ON HOLD - to resume with stable hb Stress Ulcer Prophylaxis: H2bl - ON STEROIDS Plans in collaboration with bedside consultants and IM MDs. Discussed with RN to reach out if any questions or concerns A total of 31 minutes of critical care time was devoted to this patient today, required to treat and/or prevent further deterioration of critical care condition ( as above) . Sepsis Event Evaluation Height, Weight, BMI Height: 4'9.00" Weight: 100lbs. 2.0oz. 45.489613go; 30.25 BMI Method:Stated Exam Exam Patient acknowledged, consented, and participated in this virtual visit which was conducted using real time audio/video Vital Signs Date Time Temp Pulse Resp B/P (MAP) Pulse Ox O2 Delivery O2 Flow Rate FiO2 08/28/21 09:00 81 13 95/58 (70) 95 Nasal Cannula 6.00 08/28/21 08:00 85 17 123/72 (89) 91 Nasal Cannula 6.00 08/28/21 07:38 35.6 08/28/21 07:08 Nasal Cannula 6.00 08/28/21 07:00 76 23 91/62 (72) 96 Vapotherm 45.00 18.00 08/28/21 06:56 96 Vapotherm 25.00 65 08/28/21 06:42 97 08/28/21 06:00 63 14 103/64 (77) 93 Vapotherm 45.00 18.00 08/28/21 05:00 67 118/71 (87) 94 Vapotherm 45.00 18.00 08/28/21 04:49 95 Vapotherm 25.00 50 08/28/21 04:00 73 16 109/63 (81) 94 NIV Bilevel 40.00 08/28/21 04:00 36.5 08/28/21 03:42 95 NIV Bilevel 35 08/28/21 03:00 72 11 99/63 (79) 93 NIV Bilevel 40.00 08/28/21 02:47 89 20 93 40.00 08/28/21 02:19 80 119/69 08/28/21 02:00 80 12 119/69 (79) 89 NIV Bilevel 40.00 08/28/21 01:00 90 15 123/67 (85) 95 NIV Bilevel 40.00 08/28/21 01:00 NIV Bilevel 40.00 08/28/21 01:00 90 08/28/21 00:15 80 11 90 Vapotherm 35.00 20.00 08/28/21 00:00 80 11 105/60 (74) 86 Vapotherm 30.00 20.00 08/27/21 23:39 36.1 08/27/21 23:35 95 NIV Bilevel 30 08/27/21 23:34 89 20 93 30.00 08/27/21 23:00 84 12 116/69 (84) 99 Vapotherm 30.00 20.00 08/27/21 22:00 86 13 123/67 (80) 98 Vapotherm 30.00 20.00 08/27/21 21:56 86 12 100 Vapotherm 30.00 20.00 08/27/21 21:00 94 19 118/60 (79) 97 Vapotherm 50.00 20.00 08/27/21 20:21 101 28 114/57 (79) 98 Vapotherm 50.00 20.00 08/27/21 20:00 36.1 Vapotherm 50.00 20.00 08/27/21 20:00 95 NIV Bilevel 30 08/27/21 20:00 92 19 90/54 (61) 95 Vapotherm 50.00 25.00 08/27/21 19:17 96 15 96 Vapotherm 50.00 25.00 08/27/21 19:08 99 Vapotherm 25.00 65 08/27/21 19:00 96 18 98/65 (69) 96 Vapotherm 60.00 25.00 08/27/21 19:00 96 08/27/21 18:00 97 14 100/52 (68) 97 Vapotherm 60.00 25.00 08/27/21 17:00 82 10 129/73 (91) 92 Vapotherm 60.00 25.00 08/27/21 16:15 36.2 Vapotherm 65.00 25.00 08/27/21 16:00 82 10 120/73 (89) 92 NIV Bilevel 40.00 08/27/21 16:00 95 NIV Bilevel 40 08/27/21 15:00 91 18 121/79 (93) 91 NIV Bilevel 40.00 08/27/21 14:14 73 14 97 40.00 08/27/21 14:00 77 12 116/69 (85) 96 NIV Bilevel 40.00 08/27/21 13:00 80 16 123/99 (107) 96 NIV Bilevel 40.00 08/27/21 12:30 81 08/27/21 12:00 36.7 08/27/21 12:00 79 14 122/88 (99) 92 NIV Bilevel 40.00 08/27/21 12:00 95 NIV Bilevel 40 08/27/21 11:00 72 24 113/68 (83) 93 NIV Bilevel 40.00 08/27/21 10:56 73 15 93 40.00 I & O 08/28/21 07:00 Intake Total 1410 ml Output Total 3075 ml Balance -1665 ml Height & Weight Height: 4'9.00" Weight: 100lbs. 2.0oz. 45.691709pj; 30.25 BMI Method:Stated General Appearance: No Apparent Distress, WD/WN, Chronically ill Respiratory: No Accessory Muscle Use, No Respiratory Distress, Crackles, Decreased Breath Sounds, Wheezing Cardiovascular: Regular Rate, Rhythm Capillary Refill: Less Than 3 Seconds Gastrointestinal: normal bowel sounds, non tender, soft Neurologic/Psychiatric: Alert, Oriented x3, No Motor/Sensory Deficits, Normal Mood/Affect Results Lab Laboratory Tests 08/27/21 04:30 08/28/21 04:18 Assessment/Plan Assessment/Plan 1 GILMAR MONTEZ MD Aug 28, 2021 10:06
[2021-08-28] MEDS: guaiFENesin SYRUP 100 MG/5 ML 10 ML (ROBITUSSIN SF) PO PRN ×3 (10:42→20:36)
--- NOTE | 2021-08-28 11:56 | Physical Therapy Evaluation ---
PT Evaluation-General Medical Diagnosis Admission Date Aug 19, 2021 at 21:28 Medical Diagnosis: respiratory failure with hypoxia Onset Date: Aug 19, 2021 Therapy Diagnosis Therapy Diagnosis: debility/weakness Height/Weight Height (Feet): 4 Height (Inches): 9.00 Weight (Pounds): 100 Weight (Ounces): 2.0 Precautions Precautions/Isolations: Fall Prevention, Standard Precautions Weight Bear Status Right Lower Extremity: Right Weight Bearing/Tolerated Left Lower Extremity: Left Weight Bearing/Tolerated Referral Physician: Bell Reason for Referral: Evaluation/Treatment Medical History Pertinent Medical History: CAD, COPD, HTN, [place], Smoking Current History transferred to ICU due to respiratory distress/failure Reviewed History: Yes Social History Home: Single Level Prior Prior Level of Function SCALE: Activities may be completed with or without assistive devices. 0-Zjjcopkzis-ypybatj completes the activity by him/herself with no assistance from a helper. 5-Set-up or Clean-up Assistance-helper sets up or cleans up; patient completes activity. [place] assists only prior to or following the activity. 4-Supervision or Touching Assistance-helper provides verbal cues and/or touching/steadying and/or contact guard assistance as patient completes activity. Assistance may be provided throughout the activity or intermittently. 3-Partial/Moderate Assistance-helper does LESS THAN HALF the effort. [place] lifts, holds or supports trunk or limbs, but provides less than half the effort. 2-Substantial/Maximal Assistance-helper does MORE THAN HALF the effort. [place] lifts or holds trunk or limbs and provides more than half the effort. 3-Flzkbzvwp-kwiooh does ALL the effort. Patient does none of the effort to complete the activity. Or, the assistance of 2 or more helpers is required for the patient to complete the activity. If activity was not attempted, code reason: 7-Patient Refused. 9-Not Applicable-not attempted and the patient did not perform the activity before the current illness, exacerbation or injury. 10-Not Attempted due to Environmental Limitations-(lack of equipment, weather restraints, etc.). 88-Not Attempted due to Medical Conditions or Safety Concerns. Bed Mobility: 6 Transfers (B,C,W/C): 6 Gait: 6 Stairs: 6 Indoor Mobility (Ambulation): Independent Stairs: Independent Prior Devices Use: None PT Evaluation-Current Subjective Patient agrees to PT. Objective Patient Orientation: Normal For Age Attachments: Oxygen (6L HF ), [place] Catheter, IV ROM/Strength ROM Lower Extremities bilateral LE WFL Strength Lower Extremities 4-/5 grossly bilateral LE Integumentary/Posture Bowel Incontinence: No Bladder Incontinence: [place] Cath Posture WFL Neuromuscular (Tone, Coordination, Reflexes) grossly intact Sensory Vision: Functional Hearing: Functional Transfers Roll Left to Right (QC): 6 Lying to Sitting/Side of Bed(Q: 6 Sit to Stand (QC): 4 Chair/Rqr-tv-Lomea Xfer(QC): 4 Gait Mode of Locomotion: Walk Anticipated Mode of Locomotion: Walk Walk 10 feet (QC): 4 Walk 50 ft with 2 Turns(QC): 88 Walk 150 ft (QC): 88 Distance: 10' Gait Assistive Device: FWW Comments/Gait Description slow, steady Balance Sitting Static: Normal Sitting Dynamic: Normal Standing Static: Fair Standing Dynamic: Fair Assessment/Needs 66 y.o. female, will benefit from skilled PT to address pulmonary function with functional strength and mobility to ensure safe return to home at maximum LOF. Rehab Potential: Fair PT Respiratory Therapist Goals Respiratory Therapist Goals PT Respiratory Therapist Goals Time Frame: Sep 08, 2021 Roll Left & Right (QC): 6 Sit to Lying (QC): 6 Lying-Sitting on Side/Bed(QC): 6 Sit to Stand (QC): 6 Chair/Gcv-cp-Helom Xfer(QC): 6 Toilet Transfer (QC): 6 Walk 10 feet (QC): 4 Walk 50ft with 2 Turns (QC): 4 Walk 150 ft (QC): 4 PT Plan Problem List Problem List: Activity Tolerance, Functional Strength, Safety, Balance, Gait, Transfer Treatment/Plan Treatment Plan: Continue Plan of Care Treatment Plan: Bed Mobility, Education, Functional Activity Raffi, Functional Strength, Gait, Safety, Therapeutic Exercise, Transfers Treatment Duration: Sep 08, 2021 Frequency: 6 times per week Estimated Hrs Per Day: .25 hour per day Patient and/or Family Agrees t: Yes Time/GCodes Time In: 1101 Time Out: 1111 Total Billed Treatment Time: 10 Total Billed Treatment 1 visit EVModC 10 min ANDREW YANG PT Aug 28, 2021 11:56
[2021-08-28] MEDS: BENZONATATE 100 MG (TESSALON) CAPSULE PO SCH ×2 (12:36→20:36)
[2021-08-28] MEDS: DULoxetine 30 MG (CYMBALTA) CAP PO SCH (20:35)
[2021-08-28] MEDS: MONTELUKAST 10 MG (SINGULAIR) TAB PO SCH (20:36)
[2021-08-28] MEDS: ASPIRIN 81 MG CHEW (CHILDREN'S ASA) PO SCH (20:36)
[2021-08-28] MEDS: LORazepam INJ 2 MG/ML (ATIVAN) VIAL IVP PRN (21:42)
[2021-08-29] VITALS (12 sets, daily range): BP systolic 99–124; BP diastolic 59–80
[2021-08-29] MEDS: LORazepam 0.5 MG (ATIVAN) TABLET PO SCH ×4 (00:08→17:12)
[2021-08-29] MEDS: inSUlin ASPART (NovoLOG) 1 UNIT/0.01 ML (CHARGE PER UNIT) SC SCH ×2 (00:08→05:09)
[2021-08-29] MEDS: RT-ALBUTEROL/IPRATROPIUM 3 ML (DUONEB) VIAL INH SCH ×6 (02:13→22:56)
[2021-08-29] MEDS: guaiFENesin SYRUP 100 MG/5 ML 10 ML (ROBITUSSIN SF) PO PRN ×2 (04:24→21:53)
[2021-08-29 04:29] LABS: BASOPHILS % (AUTO) 0 % (0-10); EOSINOPHILS % (AUTO) 0 % (0-10); HEMATOCRIT 31 % (35-52); HEMOGLOBIN 9.2 g/dL (11.5-16.0); LYMPHOCYTES # (AUTO) 2.5 10^3/uL (1.0-4.0); LYMPHOCYTES % (AUTO) 17 % (12-44); MEAN CORPUSCULAR HEMOGLOBIN 25 pg (25-34); MEAN CORPUSCULAR HGB CONC 30 g/dL (32-36); MEAN CORPUSCULAR VOLUME 82 fL (80-99); MEAN PLATELET VOLUME 10.1 fL (9.0-12.2); MONOCYTES # (AUTO) 0.9 10^3/uL (0.0-1.0); MONOCYTES % (AUTO) 6 % (0-12); NEUTROPHILS # (AUTO) 11.3 10^3/uL (1.8-7.8); NEUTROPHILS % (AUTO) 76 % (42-75); PLATELET COUNT 256 10^3/uL (130-400); WHITE BLOOD COUNT 14.9 10^3/uL (4.3-11.0)
[2021-08-29 04:37] LABS: POTASSIUM 4.2 MMOL/L (3.6-5.0)
[2021-08-29 04:38] LABS: CALCIUM 8.3 MG/DL (8.5-10.1)
[2021-08-29 04:39] LABS: TOTAL PROTEIN 5.8 GM/DL (6.4-8.2)
[2021-08-29 04:41] LABS: BILIRUBIN,TOTAL 0.8 MG/DL (0.1-1.0)
[2021-08-29 04:43] LABS: CREATININE SERUM 0.77 MG/DL (0.60-1.30)
[2021-08-29 04:46] LABS: MAGNESIUM 2.1 MG/DL (1.6-2.4)
[2021-08-29] MEDS: POTASSIUM CL 10MEQ/50ML IVPB 50 ML IV SCH (05:00)
[2021-08-29] MEDS: MAGNESIUM 1 GM/100 ML IVPB 100 ML IV SCH (05:09)
[2021-08-29] MEDS: KCL 20 MEQ TAB (K-DUR) PO SCH (05:09)
[2021-08-29] MEDS: FUROSEMIDE 40 MG/4 ML INJ (LASIX) IVP SCH ×2 (05:27→17:12)
--- NOTE | 2021-08-29 06:02 | Progress Note - Hospitalist ---
Subjective HPI/CC On Admission Date Seen by Provider: Aug 29, 2021 Time Seen by Provider: 09:00 Subjective/Events-last exam Pt is doing a little better Transferring to cardiac step down unit On 8L of high flow DC the Precedex CPAP at night may be helpful Hep locking IV fluid may be helpful IV Ativan has helped her sleep okay Review of Systems General: Fatigue Pulmonary: Dyspnea Objective Exam Vital Signs Vital Signs Date Time Temp Pulse Resp B/P (MAP) Pulse Ox O2 Delivery O2 Flow Rate FiO2 08/29/21 19:50 92 High Flow N/C 5.00 08/29/21 15:52 36.3 93 18 124/77 (93) 08/29/21 00:00 45 Capillary Refill : Less Than 3 Seconds General Appearance: No Apparent Distress, WD/WN, Chronically ill, Thin Respiratory: Accessory Muscle Use, Wheezing Cardiovascular: Regular Rate, Rhythm Results/Procedures Lab Laboratory Tests 08/29/21 04:22 Patient resulted labs reviewed. Assessment/Plan Assessment and Plan Assess & Plan/Chief Complaint (1) Acute and chronic respiratory failure with hypoxia Status: Acute Assessment & Plan: - Patient admitted to ICU on bipap, will transition to NC as ABG was much improved last night, patient desires to wear bipap when resting, MAT protocol, IV steroids q8hrs, IV antibiotics 08/21: Improving, patient is on home oxygen, will continue to monitor 08/22: On bipap overnight, patient had episode of anxiety and had to be placed on bipap because she said that was the only thing that helped, oxygen rebounded quickly 08/23: Patient with a couple episodes or respiratory distress ON, upon evaluation this AM, patient in moderate to severe distress w/o bipap on. Bipap placed on patient and patient was moved to ICU do to profound distress with hypoxia, repeat CXR, labs and broaded antibiotics to cefepime, notified eICU of change in status 08/24: remains biPAP dependent 08/25: BiPAP 08/26: BiPAP 08/26: BiPAP 08/28: BiPAP 08/29: 8L/min hi-buddy (2) Microcytic anemia Assessment & Plan: 08/21: Fe studies pending, will replace fe if low, patient states that she had colonoscopy several years ago with Dr Bains w/o any removal of polyps 08/22: Started on venofer 08/23: Give 1 unit of blood 08/26: Hgb stable (3) Sepsis Status: Resolved Assessment & Plan: - HDS, will continue to monitor VS Qualifiers: (4) Bilateral pneumonia Status: Acute Assessment & Plan: 08/23: Antibiotics were broadened to Cefepime Qualifiers: Qualified Codes: J18.9 - Pneumonia, unspecified organism (5) CAD (coronary artery disease) Status: Chronic Qualifiers: Qualified Codes: I25.10 - Atherosclerotic heart disease of [place] coronary a rtery without angina pectoris (6) COPD with exacerbation Status: Acute (7) Elevated d-dimer Status: Acute Assessment & Plan: - CTA: No PE, will transition to lovenox (8) Heavy smoker Status: Chronic (9) Basal cell carcinoma (BCC) of dorsum of nose Status: Acute Assessment & Plan: 08/21: On going treatment in [place] (10) DVT prophylaxis Status: Chronic Assessment & Plan: - Admitted on Heparin, will transition to lovenox (11) Physical debility Status: Acute Assessment & Plan: 08/21: PT/OT encourage OOB Critical Care Critically Ill Patient YURIY HERNANDEZ DO Aug 29, 2021 06:02
[2021-08-29] MEDS: BENZONATATE 100 MG (TESSALON) CAPSULE PO SCH ×3 (08:29→22:04)
[2021-08-29] MEDS: FAMOTIDINE 20 MG (PEPCID) TABLET PO SCH ×2 (08:29→21:52)
[2021-08-29] MEDS: methylPREDNISolone 40 MG/ML (Solu-MEDROL) VIAL IV SCH ×2 (08:29→21:52)
--- NOTE | 2021-08-29 08:50 | Physical Therapy Daily Note ---
PT Daily Note-Current Subjective Patient in bed pre tx, agrees to PT, has no complaints of pain. Appearance Patient in recliner post tx with nurse call, phone, tray, all needs met. Mental Status Patient Orientation: Person, Place, Situation Attachments: Oxygen, Preston Catheter Transfers SCALE: Activities may be completed with or without assistive devices. 0-Egqipqamnq-mynpcbv completes the activity by him/herself with no assistance from a helper. 5-Set-up or Clean-up Assistance-helper sets up or cleans up; patient completes activity. [place] assists only prior to or following the activity. 4-Supervision or Touching Assistance-helper provides verbal cues and/or touching/steadying and/or contact guard assistance as patient completes activi ty. Assistance may be provided throughout the activity or intermittently. 3-Partial/Moderate Assistance-helper does LESS THAN HALF the effort. [place] lifts, holds or supports trunk or limbs, but provides less than half the effort. 2-Substantial/Maximal Assistance-helper does MORE THAN HALF the effort. [place] lifts or holds trunk or limbs and provides more than half the effort. 2-Eqlnmdcge-ffhipz does ALL the effort. Patient does none of the effort to complete the activity. Or, the assistance of 2 or more helpers is required for the patient to complete the activity. If activity was not attempted, code reason: 7-Patient Refused. 9-Not Applicable-not attempted and the patient did not perform the activity before the current illness, exacerbation or injury. 10-Not Attempted due to Environmental Limitations-(lack of equipment, weather restraints, etc.). 88-Not Attempted due to Medical Conditions or Safety Concerns. Roll Left & Right (QC): 6 Lying to Sitting/Side of Bed(Q: 6 Sit to Stand (QC): 4 Chair/Vgd-em-Fapfi Xfer(QC): 4 Weight Bearing Right Lower Extremity: Right Weight Bearing/Tolerated Left Lower Extremity: Left Weight Bearing/Tolerated Gait Training Distance: 5' Gait Persons Needed: 1 Gait Assistive Device: FWW CGA, cues for positioning and safety Exercises Seated Therapy Exercises: Ankle pumps, Long arc quads Seated Reps: 20 Treatments bed mobility and transfers, ambulation, LE exercise Assessment Current Status: Fair Progress O2 drops into upper 80's with activity but quickly comes back up over 90% with rest PT Product Assurance Engineer Goals Product Assurance Engineer Goals PT Product Assurance Engineer Goals Time Frame: Sep 08, 2021 Roll Left & Right (QC): 6 Sit to Lying (QC): 6 Lying-Sitting on Side/Bed(QC): 6 Sit to Stand (QC): 6 Chair/Ege-jm-Rhpkm Xfer(QC): 6 Toilet Transfer (QC): 6 Walk 10 feet (QC): 4 Walk 50ft with 2 Turns (QC): 4 Walk 150 ft (QC): 4 PT Plan Problem List Problem List: Activity Tolerance, Functional Strength, Safety, Balance, Gait, Transfer, ROM Treatment/Plan Treatment Plan: Continue Plan of Care Treatment Plan: Bed Mobility, Education, Functional Activity Raffi, Functional Strength, Gait, Safety, Therapeutic Exercise, Transfers Treatment Duration: Sep 08, 2021 Frequency: 6 times per week Estimated Hrs Per Day: .25 hour per day Patient and/or Family Agrees t: Yes Safety Risks/Education Patient Education: Gait Training, Transfer Techniques, Correct Positioning, Saf ety Issues Teaching Recipient: Patient Teaching Methods: Demonstration, Discussion Response to Teaching: Reinforcement Needed Time/GCodes Time In: 826 Time Out: 836 Total Billed Treatment Time: 10 Total Billed Treatment 1 visit FA JONATHAN KNIGHT PT Aug 29, 2021 08:50
--- NOTE | 2021-08-29 09:49 | Tele-ICU Progress Note ---
Subjective Date Seen by a Provider: Aug 29, 2021 Time Seen by a Provider: 09:48 Subjective/Events-last exam (Tele-ICU Physician , Progress Note ) Available chart/ vitals / labs / Images reviewed Video assessment done using teleICU camera, rest of exam as per RN Discussed with RN , EXAM PER RN Hospital course: (08/19) 66/F- Acute copd exacerbation, bipap, extensive copd/cv hx on home O2.--BIPAP. 08/21 0 on NC --> med floor 08/23 transfered to ICU on BIPAP 28/08 08/27- BIPPAP night 40 % - rr18 TV 800 40 12 08/29 - 8 L NC A/P Acute resp failure ( PNA and AECOPD, no PE on CT 08/19) - BIPAP 02/19 r 19 tv 600 30 % - 08/21 0 on NC --> med floor 08/22 placed onBipap 02/19 , but with resp acidosis BIPAP changed to28/08 08/23 transfered to ICU on BIPAP 28/08 rr 26 TV 100 , MV 24-28 L AAOx1 08/28 - 6 L nc ( vapotherm overnight ) was on PRECEDEX - ativan prn -- NEED TO WEAN OFF AECOPD - cont steroids IV 40 bid h/o CHF - ECHO 2020 - EF 65 % - on lsix 20 bid iv RLL PNA - cont abx - NEG flu , covid - follow cxr and recheck PCT Elev ddimer 08/19 - no PE on CT 08/19) - proph dose heparin ON HOLD since 08/24 -resumed 08/28 , also need to try OOB Anemia - s/p transfusion 1 unit 08/24 - on h2bl - stable now Pulm nodule - f/up outpt as per PCP follow up BS on steroids Lines : periph (Central Line Necessity Reviewed) Preston: + OG: Nutrition: po Analgesia: Anxiety/ delirium - to wean off precedex , ativan prn VTE Prophylaxis: hep sq resumed Stress Ulcer Prophylaxis: H2bl - ON STEROIDS Plans in collaboration with bedside consultants and IM MDs. Discussed with RN to reach out if any questions or concerns A total of 22 minutes of critical care time was devoted to this patient today, required to treat and/or prevent further deterioration of critical care con dition ( as above) . Sepsis Event Evaluation Height, Weight, BMI Height: 4'9.00" Weight: 100lbs. 2.0oz. 45.242967fr; 30.89 BMI Method:Stated Exam Exam Patient acknowledged, consented, and participated in this virtual visit which was conducted using real time audio/video Vital Signs Date Time Temp Pulse Resp B/P (MAP) Pulse Ox O2 Delivery O2 Flow Rate FiO2 08/29/21 08:57 92 High Flow N/C 8.00 08/29/21 08:00 78 13 105/66 (79) 92 High Flow N/C 8.00 08/29/21 07:53 94 High Flow N/C 6.00 08/29/21 07:51 36.6 08/29/21 07:00 64 17 99/80 (86) 93 High Flow N/C 8.00 08/29/21 07:00 61 08/29/21 06:00 58 15 106/68 (90) 93 High Flow N/C 8.00 08/29/21 05:00 High Flow N/C 8.00 08/29/21 05:00 59 16 110/67 (83) 95 High Flow N/C 8.00 08/29/21 04:00 90 High Flow N/C 8.00 08/29/21 04:00 35.9 08/29/21 04:00 60 13 107/73 (83) 90 NIV Bilevel 45.00 08/29/21 03:00 62 11 110/80 (90) 92 NIV Bilevel 45.00 08/29/21 02:13 64 15 97 45.00 08/29/21 02:00 61 12 111/75 (88) 94 NIV Bilevel 45.00 08/29/21 01:00 63 10 100/59 (75) 92 NIV Bilevel 45.00 08/29/21 01:00 63 08/29/21 00:18 78 19 104/62 (76) 96 NIV Bilevel 45.00 08/29/21 00:00 98 NIV Bilevel 45 08/28/21 23:49 36.2 08/28/21 23:07 75 12 96/72 (78) 89 NIV Bilevel 45.00 08/28/21 22:23 35.9 NIV Bilevel 45.00 08/28/21 22:10 79 13 91 40.00 08/28/21 22:00 82 14 104/59 (71) 85 Nasal Cannula 5.00 08/28/21 21:00 86 19 118/80 (94) 89 Nasal Cannula 5.00 08/28/21 20:00 34.0 08/28/21 20:00 98 High Flow N/C 6.00 08/28/21 20:00 82 16 108/69 (86) 86 Nasal Cannula 5.00 08/28/21 19:00 85 14 122/66 (81) 88 Nasal Cannula 5.00 08/28/21 19:00 85 08/28/21 18:29 95 High Flow N/C 6.00 08/28/21 18:00 82 14 137/85 (102) 94 Nasal Cannula 6.00 08/28/21 17:00 78 16 140/86 (104) 93 Nasal Cannula 6.00 08/28/21 16:15 98 Nasal Cannula 6.00 08/28/21 16:00 78 8 144/84 (104) 95 Nasal Cannula 6.00 08/28/21 15:31 37.1 08/28/21 15:00 81 20 129/98 (108) 95 Nasal Cannula 6.00 08/28/21 14:50 96 High Flow N/C 6.00 08/28/21 14:00 81 12 148/93 (111) 96 Nasal Cannula 6.00 08/28/21 13:00 90 25 138/78 (98) 99 Nasal Cannula 6.00 08/28/21 12:28 98 08/28/21 12:15 94 Nasal Cannula 6.00 08/28/21 12:10 36.4 08/28/21 12:00 97 16 127/69 (88) 93 Nasal Cannula 6.00 08/28/21 11:00 86 21 114/73 (87) 93 Nasal Cannula 6.00 08/28/21 10:56 93 High Flow N/C 6.00 08/28/21 10:00 82 23 116/66 (83) 91 Nasal Cannula 6.00 I & O 08/29/21 07:00 Intake Total 2350 ml Output Total 2895 ml Balance -545 ml Height & Weight Height: 4'9.00" Weight: 100lbs. 2.0oz. 45.345103ua; 30.89 BMI Method:Stated General Appearance: WD/WN, Chronically ill Respiratory: Accessory Muscle Use, Decreased Breath Sounds, Wheezing Cardiovascular: Regular Rate, Rhythm Capillary Refill: Less Than 3 Seconds Gastrointestinal: normal bowel sounds, non tender, soft Neurologic/Psychiatric: Alert, Oriented x3, No Motor/Sensory Deficits, Normal Mood/Affect Results Lab Laboratory Tests 08/28/21 04:18 08/29/21 04:22 Assessment/Plan Assessment/Plan ` GILMAR MONTEZ MD Aug 29, 2021 09:49
[2021-08-29] MEDS: CATHETER FLUSH 10 ML SYR IV PRN (21:51)
[2021-08-29] MEDS: DULoxetine 30 MG (CYMBALTA) CAP PO SCH (21:52)
[2021-08-29] MEDS: ASPIRIN 81 MG CHEW (CHILDREN'S ASA) PO SCH (21:52)
[2021-08-29] MEDS: MONTELUKAST 10 MG (SINGULAIR) TAB PO SCH (21:52)
[2021-08-30] VITALS (8 sets, daily range): BP systolic 113–136; BP diastolic 59–86
[2021-08-30] MEDS: RT-ALBUTEROL/IPRATROPIUM 3 ML (DUONEB) VIAL INH SCH ×6 (02:54→22:57)
[2021-08-30 04:37] LABS: BASOPHILS % (AUTO) 0 % (0-10); EOSINOPHILS % (AUTO) 0 % (0-10); HEMATOCRIT 32 % (35-52); HEMOGLOBIN 9.7 g/dL (11.5-16.0); LYMPHOCYTES # (AUTO) 2.3 10^3/uL (1.0-4.0); LYMPHOCYTES % (AUTO) 14 % (12-44); MEAN CORPUSCULAR HEMOGLOBIN 25 pg (25-34); MEAN CORPUSCULAR HGB CONC 30 g/dL (32-36); MEAN CORPUSCULAR VOLUME 82 fL (80-99); MEAN PLATELET VOLUME 10.1 fL (9.0-12.2); MONOCYTES % (AUTO) 6 % (0-12); NEUTROPHILS # (AUTO) 13.6 10^3/uL (1.8-7.8); NEUTROPHILS % (AUTO) 79 % (42-75); PLATELET COUNT 277 10^3/uL (130-400); WHITE BLOOD COUNT 17.2 10^3/uL (4.3-11.0)
[2021-08-30 04:49] LABS: ALBUMIN 3.2 GM/DL (3.2-4.5); POTASSIUM 4.3 MMOL/L (3.6-5.0)
[2021-08-30 04:50] LABS: CALCIUM 8.6 MG/DL (8.5-10.1)
[2021-08-30 04:51] LABS: TOTAL PROTEIN 6.1 GM/DL (6.4-8.2)
[2021-08-30 04:53] LABS: BAND NEUTROPHILS 0 %; BASOPHILS % (MANUAL) 0 %; BILIRUBIN,TOTAL 0.6 MG/DL (0.1-1.0); EOSINOPHILS % (MANUAL) 0 %; LYMPHOCYTES % (MANUAL) 14 %; MONOCYTES % (MANUAL) 2 %; NEUTROPHILS % (MANUAL) 84 %
[2021-08-30 04:54] LABS: ANISOCYTOSIS MODERATE; HYPOCHROMASIA MARKED; POLYCHROMASIA SLIGHT; TARGET CELLS SLIGHT
[2021-08-30 04:55] LABS: CREATININE SERUM 0.76 MG/DL (0.60-1.30)
[2021-08-30 04:58] LABS: MAGNESIUM 2.1 MG/DL (1.6-2.4)
--- NOTE | 2021-08-30 05:39 | Progress Note - Hospitalist ---
Subjective HPI/CC On Admission Date Seen by Provider: Aug 30, 2021 Time Seen by Provider: 10:30 Subjective/Events-last exam Pt is much improved Transferring to 4th floor BiPAP at night and 4L of nasal cannula now Out of bed today with PT and OT No pain is reported Review of Systems General: Fatigue, Malaise Objective Exam Vital Signs Vital Signs Date Time Temp Pulse Resp B/P (MAP) Pulse Ox O2 Delivery O2 Flow Rate FiO2 08/30/21 19:50 36.0 80 18 132/76 (94) 96 High Flow N/C 4.00 08/30/21 00:59 45 Capillary Refill : Less Than 3 Seconds General Appearance: No Apparent Distress, WD/WN, Anxious, Chronically ill, Thin Respiratory: No Accessory Muscle Use, No Respiratory Distress, Decreased Breath Sounds Cardiovascular: Regular Rate, Rhythm Neurologic/Psychiatric: Alert, Oriented x3 Results/Procedures Lab Laboratory Tests 08/30/21 04:27 Patient resulted labs reviewed. Assessment/Plan Assessment and Plan Assess & Plan/Chief Complaint (1) Acute and chronic respiratory failure with hypoxia Status: Acute Assessment & Plan: - Patient admitted to ICU on bipap, will transition to HI as ABG was much improved last night, patient desires to wear bipap when resting, MAT protocol, IV steroids q8hrs, IV antibiotics 08/21: Improving, patient is on home oxygen, will continue to monitor 08/22: On bipap overnight, patient had episode of anxiety and had to be placed on bipap because she said that was the only thing that helped, oxygen rebounded quickly 08/23: Patient with a couple episodes or respiratory distress ON, upon evaluation this AM, patient in moderate to severe distress w/o bipap on. Bipap placed on patient and patient was moved to ICU do to profound distress with hypoxia, repeat CXR, labs and broaded antibiotics to cefepime, notified eICU of change in status 08/24: remains biPAP dependent 08/25: BiPAP 08/26: BiPAP 08/26: BiPAP 08/28: BiPAP 08/29: 8L/min hi-buddy (2) Microcytic anemia Assessment & Plan: 08/21: Fe studies pending, will replace fe if low, patient states that she had colonoscopy several years ago with Dr Bains w/o any removal of polyps 08/22: Started on venofer 08/23: Give 1 unit of blood 08/26: Hgb stable (3) Sepsis Status: Resolved Assessment & Plan: - HDS, will continue to monitor VS Qualifiers: (4) Bilateral pneumonia Status: Acute Assessment & Plan: 08/23: Antibiotics were broadened to Cefepime Qualifiers: Qualified Codes: J18.9 - Pneumonia, unspecified organism (5) CAD (coronary artery disease) Status: Chronic Qualifiers: Qualified Codes: I25.10 - Atherosclerotic heart disease of [place] coronary artery without angina pectoris (6) COPD with exacerbation Status: Acute (7) Elevated d-dimer Status: Acute Assessment & Plan: - CTA: No PE, will transition to lovenox (8) Heavy smoker Status: Chronic (9) Basal cell carcinoma (BCC) of dorsum of nose Status: Acute Assessment & Plan: 08/21: On going treatment in [place] (10) DVT prophylaxis Status: Chronic Assessment & Plan: - Admitted on Heparin, will transition to lovenox (11) Physical debility Status: Acute Assessment & Plan: 08/21: PT/OT encourage OOB Plan: Transfer to floor PT OT Critical Care Critically Ill Patient YURIY HERNANDEZ DO Aug 30, 2021 05:39
[2021-08-30] MEDS: LORazepam 0.5 MG (ATIVAN) TABLET PO SCH ×5 (05:43→23:25)
[2021-08-30] MEDS: FUROSEMIDE 40 MG/4 ML INJ (LASIX) IVP SCH ×2 (06:26→17:52)
--- NOTE | 2021-08-30 07:16 | Diagnostic Imaging Report ---
INDICATION: Hypoxia COMPARISON: 08/26/2021 FINDINGS: Single view the chest demonstrates persistent but decreasing bilateral pulmonary infiltrates. Heart is prominent. There is no pneumothorax or effusion. IMPRESSION: Slightly improved aeration. Dictated by: Dictated on workstation # [id number]
[2021-08-30] MEDS: IRON SUCROSE 200 MG/10 ML (VENOFER) VIAL IV SCH (09:48)
[2021-08-30] MEDS: FAMOTIDINE 20 MG (PEPCID) TABLET PO SCH ×2 (09:48→20:59)
[2021-08-30] MEDS: BENZONATATE 100 MG (TESSALON) CAPSULE PO SCH ×3 (09:48→20:58)
[2021-08-30] MEDS: methylPREDNISolone 40 MG/ML (Solu-MEDROL) VIAL IV SCH ×2 (09:48→20:58)
--- NOTE | 2021-08-30 10:17 | Physical Therapy Progress Note ---
Therapy Progress Note Patient in bed on BiPap. Declined PT by opening her eyes and shaking her head no to PT request. Nursing and SW notified. Will attempt later today or in a.m. 1 ref ANDREW YANG PT Aug 30, 2021 10:17
--- NOTE | 2021-08-30 13:23 | Occupational Therapy Eval ---
OT Evaluation-General/PLF Medical Diagnosis Admission Date Aug 19, 2021 at 21:28 Medical Diagnosis: respiratory failure with hypoxia Onset Date: Aug 19, 2021 Therapy Diagnosis Therapy Diagnosis: impaired adls Height/Weight Height (Feet): 4 Height (Inches): 9.00 Weight (Pounds): 100 Weight (Ounces): 2.0 Precautions Precautions/Isolations: Fall Prevention, Standard Precautions Referral Physician: Bell Referral Reason: Evaluation/Treatment Medical History Pertinent Medical History: CAD, COPD, HTN, MD, Smoking Current History pt presents to ER with SOB. Found to have respiratory failure with hypoxia. Per patient, she lives alone in a single story home. She was indep with adls and some iadls. She receives assistance with transportation and grocery shopping from supportive friends. Pt was not using any AD at baseline. She uses 2-4L oxygen at baseline. Reviewed History: Yes Social History Home: Single Level Current Living Status: Alone ADL-Prior Level of Function SCALE: Activities may be completed with or without assistive devices. 8-Yvayjwveve-ujzewrh completes the activity by him/herself with no assistance from a helper. 5-Set-up or Clean-up Assistance-helper sets up or cleans up; patient completes activity. [place] assists only prior to or following the activity. 4-Supervision or Touching Assistance-helper provides verbal cues and/or touching/steadying and/or contact guard assistance as patient completes activity. Assistance may be provided throughout the activity or intermittently. 3-Partial/Moderate Assistance-helper does LESS THAN HALF the effort. [place] lifts, holds or supports trunk or limbs, but provides less than half the effort. 2-Substantial/Maximal Assistance-helper does MORE THAN HALF the effort. [place] lifts or holds trunk or limbs and provides more than half the effort. 1-Qylhvfvsl-nbahgb does ALL the effort. Patient does none of the effort to complete the activity. Or, the assistance of 2 or more helpers is required for the patient to complete the activity. If activity was not attempted, code reason: 7-Patient Refused. 9-Not Applicable-not attempted and the patient did not perform the activity before the current illness, exacerbation or injury. 10-Not Attempted due to Environmental Limitations-(lack of equipment, weather restraints, etc.). 88-Not Attempted due to Medical Conditions or Safety Concerns. Self Care: Independent Functional Cognition: Independent DME/Equipment: Tub/Shower Drive Self: No OT Current Status Subjective Pt reports fear of getting out of bed secondary to SOB with activity. Appearance Pt left sitting in recliner, lunch tray set up in front of her, all needs within reach. Mental Status/Objective Patient Orientation: Person, Place, Situation Attachments: Grady Catheter, IV, Oxygen (4L), Telemetry Current Hand Dominance: Right Upper Extremity ROM WNL Upper Extremity Strength 3+/5 grossly ADL-Treatment Eating (QC): 5 Oral Hygiene (QC): 5 Toileting Hygiene (QC): 1 (grady catheter) At OT arrival, Pt reclined in bed attempting to eat lunch. Encouragement and education on sitting upright during meals. She reports fear of getting up second natalia to being SOB with activity. With time, pt agreeable to transfer to chair. Supine>sit: SBA, extra time. Upon sitting upright, she desats to 88%, HR-119 bpm. Cues for PLB and relaxation; recovers within ~30 seconds. She stood and ambulated ~5 feet to recliner with CGA and use of walker. Cues to ensure chair is behind her prior to sitting. Oxygen between 91-97% while ambulating to chair. Pt encouraged to sit up as long as tolerable. Lunch tray set up in front of her. Education OT Patient Education: Correct positioning, Modified ADL techniques, Purpose of tx/functional activities, Reviewed precautions, Safety issues, Transfer techniques Teaching Recipient: Patient Teaching Methods: Demonstration, Discussion Response to Teaching: Verbalize Understanding, Return Demonstration, Reinforcem ent Needed OT Assisted Goals Assisted Goals Time Frame: Sep 13, 2021 Toileting Hygiene (QC): 4 Shower/Bathe Self (QC): 4 Upper Body Dressing (QC): 5 Lower Body Dressing (QC): 4 On/Off Footwear (QC): 4 1=Demonstrate adherence to instructed precautions during ADL tasks. 2=Patient will verbalize/demonstrate understanding of assistive devices/modifications for ADL. 3=Patient will improve strength/tolerance for activity to enable patient to perform ADL's. OT Education/Plan Problem List/Assessment Assessment: Decreased Activ Tolerance, Decreased UE Strength, Impaired Funct Balance, Impaired I ADL's, Impaired Self-Care Skills Discharge Recommendations Plan/Recommendations: Continue POC Therapy Discharge Recommendati: Post Acute OT Treatment Plan/Plan of Care Treatment,Training & Education: Yes Patient would benefit from OT for education, treatment and training to promote independence in ADL's, mobility, safety and/or upper extremity function for ADL's. Plan of Care: ADL Retraining, Functional Mobility, Group Exercise/Act as Ind, UE Funct Exercise/Act Treatment Duration: Sep 13, 2021 Frequency: 3 times per week (3-5x/week) Estimated Hrs Per Day: .25 hour per day Agreement: Yes Rehab Potential: Guarded Time/GCodes Start Time: 12:01 Stop Time: 12:25 Total Time Billed (hr/min): 24 Billed Treatment Time 1 visit EVM (10 min) FA (14 min) Radha Tracy OT Aug 30, 2021 13:23
[2021-08-30] MEDS: guaiFENesin SYRUP 100 MG/5 ML 10 ML (ROBITUSSIN SF) PO PRN ×2 (13:49→23:25)
[2021-08-30] MEDS: DULoxetine 30 MG (CYMBALTA) CAP PO SCH (20:58)
[2021-08-30] MEDS: MONTELUKAST 10 MG (SINGULAIR) TAB PO SCH (20:59)
[2021-08-30] MEDS: ASPIRIN 81 MG CHEW (CHILDREN'S ASA) PO SCH (20:59)
[2021-08-31] MEDS: RT-ALBUTEROL/IPRATROPIUM 3 ML (DUONEB) VIAL INH SCH ×6 (03:01→23:06)
[2021-08-31 03:45] VITALS: BP 134/64
[2021-08-31] MEDS: LORazepam 0.5 MG (ATIVAN) TABLET PO SCH ×4 (04:53→23:26)
[2021-08-31 05:53] LABS: BASOPHILS % (AUTO) 0 % (0-10); EOSINOPHILS % (AUTO) 0 % (0-10); HEMATOCRIT 34 % (35-52); HEMOGLOBIN 10.3 g/dL (11.5-16.0); LYMPHOCYTES # (AUTO) 2.5 10^3/uL (1.0-4.0); LYMPHOCYTES % (AUTO) 13 % (12-44); MEAN CORPUSCULAR HEMOGLOBIN 25 pg (25-34); MEAN CORPUSCULAR HGB CONC 30 g/dL (32-36); MEAN CORPUSCULAR VOLUME 83 fL (80-99); MEAN PLATELET VOLUME 9.9 fL (9.0-12.2); MONOCYTES # (AUTO) 1.1 10^3/uL (0.0-1.0); MONOCYTES % (AUTO) 6 % (0-12); NEUTROPHILS # (AUTO) 14.8 10^3/uL (1.8-7.8); NEUTROPHILS % (AUTO) 80 % (42-75); PLATELET COUNT 289 10^3/uL (130-400); WHITE BLOOD COUNT 18.7 10^3/uL (4.3-11.0)
--- NOTE | 2021-08-31 06:14 | Progress Note - Hospitalist ---
Subjective HPI/CC On Admission Date Seen by Provider: Aug 31, 2021 Time Seen by Provider: 11:30 Subjective/Events-last exam Pt doing well WBC 18.7 Hemoglobin 10.3 BiCarb is 34 Working on getting her off the BiPAP Pt wants to go home soon Review of Systems General: Fatigue, Malaise Pulmonary: Dyspnea Neurological: Weakness Objective Exam Vital Signs Vital Signs Date Time Temp Pulse Resp B/P (MAP) Pulse Ox O2 Delivery O2 Flow Rate FiO2 08/31/21 19:39 96 High Flow N/C 4.00 08/31/21 17:03 36.8 87 18 161/81 (107) 08/30/21 00:59 45 Capillary Refill : Less Than 3 Seconds General Appearance: No Apparent Distress, WD/WN, Anxious, Chronically ill, Thin Respiratory: No Accessory Muscle Use, No Respiratory Distress, Decreased Breath Sounds Cardiovascular: Regular Rate, Rhythm Neurologic/Psychiatric: Alert, Oriented x3, No Motor/Sensory Deficits, Normal Mood/Affect Results/Procedures Lab Laboratory Tests 08/31/21 05:50 08/31/21 09:00 Patient resulted labs reviewed. Assessment/Plan Assessment and Plan Assess & Plan/Chief Complaint (1) Acute and chronic respiratory failure with hypoxia Status: Acute Assessment & Plan: - Patient admitted to ICU on bipap, will transition to NC as ABG was much improved last night, patient desires to wear bipap when resting, MAT protocol, IV steroids q8hrs, IV antibiotics 08/21: Improving, patient is on home oxygen, will continue to monitor 08/22: On bipap overnight, patient had episode of anxiety and had to be placed on bipap because she said that was the only thing that helped, oxygen rebounded qu ickly 08/23: Patient with a couple episodes or respiratory distress ON, upon evaluation this AM, patient in moderate to severe distress w/o bipap on. Bipap placed on patient and patient was moved to ICU do to profound distress with hypoxia, repeat CXR, labs and broaded antibiotics to cefepime, notified eICU of change in status 08/24: remains biPAP dependent 08/25: BiPAP 08/26: BiPAP 08/26: BiPAP 08/28: BiPAP 08/29: 8L/min hi-buddy (2) Microcytic anemia Assessment & Plan: 08/21: Fe studies pending, will replace fe if low, patient states that she had colonoscopy several years ago with Dr Bains w/o any removal of polyps 08/22: Started on venofer 08/23: Give 1 unit of blood 08/26: Hgb stable (3) Sepsis Status: Resolved Assessment & Plan: - HDS, will continue to monitor VS Qualifiers: (4) Bilateral pneumonia Status: Acute Assessment & Plan: 08/23: Antibiotics were broadened to Cefepime Qualifiers: Qualified Codes: J18.9 - Pneumonia, unspecified organism (5) CAD (coronary artery disease) Status: Chronic Qualifiers: Qualified Codes: I25.10 - Atherosclerotic heart disease of [place] coronary artery without angina pectoris (6) COPD with exacerbation Status: Acute (7) Elevated d-dimer Status: Acute Assessment & Plan: - CTA: No PE, will transition to lovenox (8) Heavy smoker Status: Chronic (9) Basal cell carcinoma (BCC) of dorsum of nose Status: Acute Assessment & Plan: 08/21: On going treatment in [place] (10) DVT prophylaxis Status: Chronic Assessment & Plan: - Admitted on Heparin, will transition to lovenox (11) Physical debility Status: Acute Assessment & Plan: 08/21: PT/OT encourage OOB Plan: Transfer to floor PT OT 08/31: Improved status Critical Care Critically Ill Patient YURIY HERNANDEZ DO Aug 31, 2021 06:14
[2021-08-31] MEDS: FUROSEMIDE 40 MG/4 ML INJ (LASIX) IVP SCH ×2 (06:18→17:15)
[2021-08-31 07:06] VITALS: BP 146/89
[2021-08-31] MEDS: methylPREDNISolone 40 MG/ML (Solu-MEDROL) VIAL IV SCH ×2 (08:37→21:15)
[2021-08-31] MEDS: FAMOTIDINE 20 MG (PEPCID) TABLET PO SCH ×2 (08:38→21:15)
[2021-08-31] MEDS: BENZONATATE 100 MG (TESSALON) CAPSULE PO SCH ×3 (08:38→21:15)
[2021-08-31 09:27] LABS: ALBUMIN 3.3 GM/DL (3.2-4.5); BILIRUBIN,TOTAL 0.6 MG/DL (0.1-1.0); CALCIUM 8.8 MG/DL (8.5-10.1); CREATININE SERUM 0.77 MG/DL (0.60-1.30); POTASSIUM 3.9 MMOL/L (3.6-5.0); TOTAL PROTEIN 6.3 GM/DL (6.4-8.2)
[2021-08-31 11:13] VITALS: BP 140/72
--- NOTE | 2021-08-31 11:51 | Physical Therapy Daily Note ---
PT Daily Note-Current Subjective Patient agrees to PT. Mental Status Patient Orientation: Normal For Age Attachments: Oxygen (4L HF NC) Transfers SCALE: Activities may be completed with or without assistive devices. 9-Vnbmxbbfuv-roezvsj completes the activity by him/herself with no assistance from a helper. 5-Set-up or Clean-up Assistance-helper sets up or cleans up; patient completes a ctivity. [place] assists only prior to or following the activity. 4-Supervision or Touching Assistance-helper provides verbal cues and/or touching/steadying and/or contact guard assistance as patient completes activity. Assistance may be provided throughout the activity or intermittently. 3-Partial/Moderate Assistance-helper does LESS THAN HALF the effort. [place] lifts, holds or supports trunk or limbs, but provides less than half the effort. 2-Substantial/Maximal Assistance-helper does MORE THAN HALF the effort. [place] lifts or holds trunk or limbs and provides more than half the effort. 4-Yoxowjcex-qjgxml does ALL the effort. Patient does none of the effort to complete the activity. Or, the assistance of 2 or more helpers is required for the patient to complete the activity. If activity was not attempted, code reason: 7-Patient Refused. 9-Not Applicable-not attempted and the patient did not perform the activity before the current illness, exacerbation or injury. 10-Not Attempted due to Environmental Limitations-(lack of equipment, weather restraints, etc.). 88-Not Attempted due to Medical Conditions or Safety Concerns. Lying to Sitting/Side of Bed(Q: 6 Sit to Stand (QC): 4 Chair/Gfq-sp-Hszjz Xfer(QC): 4 Weight Bearing Right Lower Extremity: Right Weight Bearing/Tolerated Left Lower Extremity: Left Weight Bearing/Tolerated Gait Training Distance: 200' Walk 10 feet (QC): 4 Walk 50 ft with 2 Turns(QC): 4 Walk 150 ft (QC): 4 Gait Assistive Device: FWW very slow, steady gait sequence Exercises Seated Therapy Exercises: Ankle pumps, Long arc quads Seated Reps: 15 Assessment Patient's SAO2 remains >90% with activity on 4L HF NC. Patient educated on breathing techniques to assist in calming due to increase anxiety with SOA. Patient performs with good results. PT Detention Goals Want Ad Clerk Goals PT Want Ad Clerk Goals Time Frame: Sep 08, 2021 Roll Left & Right (QC): 6 Sit to Lying (QC): 6 Lying-Sitting on Side/Bed(QC): 6 Sit to Stand (QC): 6 Chair/Ugg-hb-Dblgq Xfer(QC): 6 Toilet Transfer (QC): 6 Walk 10 feet (QC): 4 Walk 50ft with 2 Turns (QC): 4 Walk 150 ft (QC): 4 PT Plan Treatment/Plan Treatment Plan: Continue Plan of Care Treatment Plan: Bed Mobility, Education, Functional Activity Raffi, Functional Strength, Gait, Safety, Therapeutic Exercise, Transfers Treatment Duration: Sep 08, 2021 Frequency: 6 times per week Estimated Hrs Per Day: .25 hour per day Patient and/or Family Agrees t: Yes Time/GCodes Time In: 1100 Time Out: 1123 Total Billed Treatment Time: 23 Total Billed Treatment 1 visit FA x 2 23 min ANDREW YANG PT Aug 31, 2021 11:51
--- NOTE | 2021-08-31 13:36 | Occupational Ther Daily Note ---
OT Current Status-Daily Note Subjective Pt sitting in recliner, very upset and crying about her brother. Pt had just received a phone call about a decline in brothers health. Pt was asking for nrsg to assist with calming her down. LEON comforted pt then went to find nrsg and report pt's status. Nrsg brought meds. Mental Status/Objective Patient Orientation: Person, Place, Time, Situation Attachments: [place] Catheter, IV, Oxygen (HiFlo 4L) ADL-Treatment Therapy Code Descriptions/Definitions Functional [place] Measure: 0=Not Assessed/NA 4=Minimal Assistance 1=Total Assistance 5=Supervision or Setup 2=Maximal Assistance 6=Modified [place] 3=Moderate Assistance 7=Complete IndependenceSCALE: Activities may be completed with or without assistive devices. 4-Lydryxsfsf-jpeqqhc completes the activity by him/herself with no assistance from a helper. 5-Set-up or Clean-up Assistance-helper sets up or cleans up; patient completes activity. [place] assists only prior to or following the activity. 4-Supervision or Touching Assistance-helper provides verbal cues and/or touching/steadying and/or contact guard assistance as patient completes activity. Assistance may be provided throughout the activity or intermittently. 3-Partial/Moderate Assistance-helper does LESS THAN HALF the effort. [place] lifts, holds or supports trunk or limbs, but provides less than half the effort. 2-Substantial/Maximal Assistance-helper does MORE THAN HALF the effort. [place] lifts or holds trunk or limbs and provides more than half the effort. 3-Qbhatdaxv-flaupk does ALL the effort. Patient does none of the effort to complete the activity. Or, the assistance of 2 or more helpers is required for the patient to complete the activity. If activity was not attempted, code reason: 7-Patient Refused. 9-Not Applicable-not attempted and the patient did not perform the activity before the current illness, exacerbation or injury. 10-Not Attempted due to Environmental Limitations-(lack of equipment, weather restraints, etc.). 88-Not Attempted due to Medical Conditions or Safety Concerns. Other Treatment Pt declined any exercise or ADLs at this time. LEON continued to try and encourage pt to move, ambulate or complete any ADLs to take her mind off of her brother. Pt continued to decliner. Pt did demonstrate B UE AROM is WNL and good strength. Pt brush hair and was able to reach and brush hair thoroughly. Nrsg in room at end of OT session. Call light/phone in reach. All needs met in room. OT Mcfp Goals Industrial Cleaner Goals Time Frame: Sep 13, 2021 Toileting Hygiene (QC): 4 Shower/Bathe Self (QC): 4 Upper Body Dressing (QC): 5 Lower Body Dressing (QC): 4 On/Off Footwear (QC): 4 1=Demonstrate adherence to instructed precautions during ADL tasks. 2=Patient will verbalize/demonstrate understanding of assistive devices/modifications for ADL. 3=Patient will improve strength/tolerance for activity to enable patient to pe rform ADL's. OT Education/Plan Problem List/Assessment Assessment: Decreased Activ Tolerance Discharge Recommendations Plan/Recommendations: Continue POC Treatment Plan/Plan of Care Patient would benefit from OT for education, treatment and training to promote independence in ADL's, mobility, safety and/or upper extremity function for ADL's. Plan of Care: ADL Retraining, Functional Mobility, Group Exercise/Act as Ind, UE Funct Exercise/Act Treatment Duration: Sep 13, 2021 Frequency: 3 times per week (3-5x/week) Estimated Hrs Per Day: .25 hour per day Agreement: Yes Rehab Potential: Guarded Time/GCodes Start Time: 12:55 Stop Time: 13:13 Total Time Billed (hr/min): 18 Billed Treatment Time 1 visit-FA 1 (15 min) TONG OVERTON Aug 31, 2021 13:36
[2021-08-31 17:00] VITALS: BP 161/81
[2021-08-31 17:03] VITALS: BP 161/81
[2021-08-31 20:56] VITALS: BP 132/65
[2021-08-31] MEDS: ASPIRIN 81 MG CHEW (CHILDREN'S ASA) PO SCH (21:15)
[2021-08-31] MEDS: DULoxetine 30 MG (CYMBALTA) CAP PO SCH (21:15)
[2021-08-31] MEDS: MONTELUKAST 10 MG (SINGULAIR) TAB PO SCH (21:15)
[2021-09-01] VITALS (7 sets, daily range): BP systolic 129–165; BP diastolic 72–87
[2021-09-01] MEDS: RT-ALBUTEROL/IPRATROPIUM 3 ML (DUONEB) VIAL INH SCH ×4 (02:45→20:39)
[2021-09-01 05:50] LABS: BASOPHILS % (AUTO) 0 % (0-10); EOSINOPHILS % (AUTO) 0 % (0-10); HEMATOCRIT 34 % (35-52); HEMOGLOBIN 10.4 g/dL (11.5-16.0); LYMPHOCYTES # (AUTO) 2.2 10^3/uL (1.0-4.0); LYMPHOCYTES % (AUTO) 11 % (12-44); MEAN CORPUSCULAR HEMOGLOBIN 25 pg (25-34); MEAN CORPUSCULAR HGB CONC 31 g/dL (32-36); MEAN CORPUSCULAR VOLUME 82 fL (80-99); MEAN PLATELET VOLUME 10.2 fL (9.0-12.2); MONOCYTES # (AUTO) 1.1 10^3/uL (0.0-1.0); MONOCYTES % (AUTO) 5 % (0-12); NEUTROPHILS # (AUTO) 17.3 10^3/uL (1.8-7.8); NEUTROPHILS % (AUTO) 82 % (42-75); PLATELET COUNT 299 10^3/uL (130-400)
[2021-09-01 05:59] LABS: ALBUMIN 3.4 GM/DL (3.2-4.5)
[2021-09-01 06:00] LABS: POTASSIUM 3.9 MMOL/L (3.6-5.0)
[2021-09-01 06:01] LABS: CALCIUM 8.8 MG/DL (8.5-10.1)
[2021-09-01 06:02] LABS: TOTAL PROTEIN 6.4 GM/DL (6.4-8.2)
[2021-09-01 06:04] LABS: BILIRUBIN,TOTAL 0.5 MG/DL (0.1-1.0)
[2021-09-01 06:05] LABS: CREATININE SERUM 0.77 MG/DL (0.60-1.30)
--- NOTE | 2021-09-01 06:05 | Progress Note - Hospitalist ---
Subjective HPI/CC On Admission Date Seen by Provider: Sep 01, 2021 Time Seen by Provider: 09:00 Subjective/Events-last exam Patient doing well Walking better Less short of breath Lungs remain clear Constipation is noted so will initiate laxatives Patient concerned about her dying brother and other family dynamic issues Review of Systems Pulmonary: Dyspnea, Cough Objective Exam Vital Signs Vital Signs Date Time Temp Pulse Resp B/P (MAP) Pulse Ox O2 Delivery O2 Flow Rate FiO2 09/01/21 16:22 36.5 94 22 165/80 (108) 95 High Flow N/C 4.00 08/30/21 00:59 45 Capillary Refill : Less Than 3 Seconds General Appearance: No Apparent Distress, WD/WN, Anxious, Thin Respiratory: No Accessory Muscle Use, No Respiratory Distress, Decreased Breath Sounds Cardiovascular: Regular Rate, Rhythm Neurologic/Psychiatric: Alert, Oriented x3, No Motor/Sensory Deficits, Normal Mood/Affect Results/Procedures Lab Laboratory Tests 09/01/21 05:30 Patient resulted labs reviewed. Assessment/Plan Assessment and Plan Assess & Plan/Chief Complaint (1) Acute and chronic respiratory failure with hypoxia Status: Acute Assessment & Plan: - Patient admitted to ICU on bipap, will transition to [place] as ABG was much improved last night, patient desires to wear bipap when resting, MAT protocol, IV steroids q8hrs, IV antibiotics 08/21: Improving, patient is on home oxygen, will continue to monitor 08/22: On bipap overnight, patient had episode of anxiety and had to be placed on bipap because she said that was the only thing that helped, oxygen rebounded quickly 08/23: Patient with a couple episodes or respiratory distress ON, upon evaluation this AM, patient in moderate to severe distress w/o bipap on. Bipap placed on patient and patient was moved to ICU do to profound distress with hypoxia, repeat CXR, labs and broaded antibiotics to cefepime, notified eICU of change in status 08/24: remains biPAP dependent 08/25: BiPAP 08/26: BiPAP 08/26: BiPAP 08/28: BiPAP 08/29: 8L/min hi-buddy (2) Microcytic anemia Assessment & Plan: 08/21: Fe studies pending, will replace fe if low, patient states that she had colonoscopy several years ago with Dr Bains w/o any removal of polyps 08/22: Started on venofer 08/23: Give 1 unit of blood 08/26: Hgb stable (3) Sepsis Status: Resolved Assessment & Plan: - HDS, will continue to monitor VS Qualifiers: (4) Bilateral pneumonia Status: Acute Assessment & Plan: 08/23: Antibiotics were broadened to Cefepime Qualifiers: Qualified Codes: J18.9 - Pneumonia, unspecified organism (5) CAD (coronary artery disease) Status: Chronic Qualifiers: Qualified Codes: I25.10 - Atherosclerotic heart disease of [place] coronary artery without angina pectoris (6) COPD with exacerbation Status: Acute (7) Elevated d-dimer Status: Acute Assessment & Plan: - CTA: No PE, will transition to lovenox (8) Heavy smoker Status: Chronic (9) Basal cell carcinoma (BCC) of dorsum of nose Status: Acute Assessment & Plan: 08/21: On going treatment in [place] (10) DVT prophylaxis Status: Chronic Assessment & Plan: - Admitted on Heparin, will transition to lovenox (11) Physical debility Status: Acute Assessment & Plan: 08/21: PT/OT encourage OOB Plan: Transfer to floor PT OT 08/31: Improved status 09/01/2021: Improved status Lungs are clear BiPAP at night Critical Care Critically Ill Patient YURIY HERNANDEZ DO Sep 01, 2021 06:05
[2021-09-01] MEDS: FUROSEMIDE 40 MG/4 ML INJ (LASIX) IVP SCH ×2 (06:10→17:11)
[2021-09-01] MEDS: LORazepam 0.5 MG (ATIVAN) TABLET PO SCH ×3 (06:10→17:11)
[2021-09-01] MEDS: methylPREDNISolone 40 MG/ML (Solu-MEDROL) VIAL IV SCH ×2 (09:00→21:23)
[2021-09-01] MEDS: BENZONATATE 100 MG (TESSALON) CAPSULE PO SCH ×3 (09:00→21:24)
[2021-09-01] MEDS: IRON SUCROSE 200 MG/10 ML (VENOFER) VIAL IV SCH (09:00)
[2021-09-01] MEDS: FAMOTIDINE 20 MG (PEPCID) TABLET PO SCH ×2 (09:01→21:24)
[2021-09-01] MEDS: LORazepam INJ 2 MG/ML (ATIVAN) VIAL IVP PRN ×2 (09:17→21:23)
--- NOTE | 2021-09-01 11:31 | Physical Therapy Daily Note ---
PT Daily Note-Current Subjective States that she is doing better. Transfers SCALE: Activities may be completed with or without assistive devices. 9-Cmilkqvvtr-foguyhp completes the activity by him/herself with no assistance from a helper. 5-Set-up or Clean-up Assistance-helper sets up or cleans up; patient completes activity. [place] assists only prior to or following the activity. 4-Supervision or Touching Assistance-helper provides verbal cues and/or touching/steadying and/or contact guard assistance as patient completes activity. Assistance may be provided throughout the activity or intermittently. 3-Partial/Moderate Assistance-helper does LESS THAN HALF the effort. [place] lift s, holds or supports trunk or limbs, but provides less than half the effort. 2-Substantial/Maximal Assistance-helper does MORE THAN HALF the effort. [place] lifts or holds trunk or limbs and provides more than half the effort. 3-Tarxcjhhx-goflef does ALL the effort. Patient does none of the effort to complete the activity. Or, the assistance of 2 or more helpers is required for the patient to complete the activity. If activity was not attempted, code reason: 7-Patient Refused. 9-Not Applicable-not attempted and the patient did not perform the activity before the current illness, exacerbation or injury. 10-Not Attempted due to Environmental Limitations-(lack of equipment, weather restraints, etc.). 88-Not Attempted due to Medical Conditions or Safety Concerns. Sit to Stand (QC): 5 Weight Bearing Right Lower Extremity: Right Weight Bearing/Tolerated Left Lower Extremity: Left Weight Bearing/Tolerated Gait Training Distance: 200' Gait Persons Needed: 1 Gait Assistive Device: FWW Assessment Current Status: Excellent Progress Patient had increased SOB during gait. PT Half-Way Goals Front Tender Goals PT Half-Way Goals Time Frame: Sep 08, 2021 Roll Left & Right (QC): 6 Sit to Lying (QC): 6 Lying-Sitting on Side/Bed(QC): 6 Sit to Stand (QC): 6 Chair/Uke-ap-Vjkcy Xfer(QC): 6 Toilet Transfer (QC): 6 Walk 10 feet (QC): 4 Walk 50ft with 2 Turns (QC): 4 Walk 150 ft (QC): 4 PT Plan Treatment/Plan Treatment Plan: Continue Plan of Care Treatment Plan: Bed Mobility, Education, Functional Activity Raffi, Functional Strength, Gait, Safety, Therapeutic Exercise, Transfers Treatment Duration: Sep 08, 2021 Frequency: 6 times per week Estimated Hrs Per Day: .25 hour per day Patient and/or Family Agrees t: Yes Time/GCodes Time In: 1110 Time Out: 1130 Total Billed Treatment Time: 20 Total Billed Treatment 1, GT x 20' SAKINA GUAJARDO PT Sep 01, 2021 11:31
[2021-09-01] MEDS: SENNA W/DOCUSATE (SENOKOT S) TABLET PO SCH ×2 (12:19→21:24)
[2021-09-01] MEDS: polyethylene glycoL POWDER 17 GM (MIRALAX) PACK PO SCH ×2 (12:19→21:25)
[2021-09-01] MEDS: guaiFENesin SYRUP 100 MG/5 ML 10 ML (ROBITUSSIN SF) PO PRN (12:22)
[2021-09-01] MEDS: CATHETER FLUSH 10 ML SYR IV PRN (21:23)
[2021-09-01] MEDS: DULoxetine 30 MG (CYMBALTA) CAP PO SCH (21:24)
[2021-09-01] MEDS: MONTELUKAST 10 MG (SINGULAIR) TAB PO SCH (21:24)
[2021-09-01] MEDS: ASPIRIN 81 MG CHEW (CHILDREN'S ASA) PO SCH (21:24)
[2021-09-02] VITALS: BP 138/80
[2021-09-02] MEDS: LORazepam 0.5 MG (ATIVAN) TABLET PO SCH ×4 (00:06→17:38)
[2021-09-02] MEDS: RT-ALBUTEROL/IPRATROPIUM 3 ML (DUONEB) VIAL INH SCH ×4 (02:40→19:55)
[2021-09-02] MEDS: LORazepam INJ 2 MG/ML (ATIVAN) VIAL IVP PRN ×3 (03:28→21:05)
[2021-09-02 04:00] VITALS: BP 130/68
[2021-09-02 05:45] LABS: BASOPHILS % (AUTO) 0 % (0-10); EOSINOPHILS % (AUTO) 0 % (0-10); HEMATOCRIT 35 % (35-52); HEMOGLOBIN 10.7 g/dL (11.5-16.0); LYMPHOCYTES # (AUTO) 2.5 10^3/uL (1.0-4.0); LYMPHOCYTES % (AUTO) 12 % (12-44); MEAN CORPUSCULAR HEMOGLOBIN 26 pg (25-34); MEAN CORPUSCULAR HGB CONC 31 g/dL (32-36); MEAN CORPUSCULAR VOLUME 84 fL (80-99); MEAN PLATELET VOLUME 10.7 fL (9.0-12.2); MONOCYTES # (AUTO) 1.2 10^3/uL (0.0-1.0); MONOCYTES % (AUTO) 5 % (0-12); NEUTROPHILS # (AUTO) 17.5 10^3/uL (1.8-7.8); NEUTROPHILS % (AUTO) 82 % (42-75); PLATELET COUNT 281 10^3/uL (130-400); WHITE BLOOD COUNT 21.4 10^3/uL (4.3-11.0)
[2021-09-02 06:02] LABS: ALBUMIN 3.4 GM/DL (3.2-4.5)
[2021-09-02 06:04] LABS: CALCIUM 8.8 MG/DL (8.5-10.1)
[2021-09-02 06:05] LABS: TOTAL PROTEIN 6.4 GM/DL (6.4-8.2)
[2021-09-02 06:07] LABS: BILIRUBIN,TOTAL 0.5 MG/DL (0.1-1.0)
[2021-09-02 06:09] LABS: CREATININE SERUM 0.78 MG/DL (0.60-1.30)
[2021-09-02] MEDS: FUROSEMIDE 40 MG/4 ML INJ (LASIX) IVP SCH ×2 (06:13→17:38)
--- NOTE | 2021-09-02 07:01 | Progress Note - Hospitalist ---
Subjective HPI/CC On Admission Date Seen by Provider: Sep 02, 2021 Time Seen by Provider: 10:00 Subjective/Events-last exam Patient doing well BiPAP used at night She is nervous about going home and not having a BiPAP Labs revealed stability Bowels need to move Review of Systems Pulmonary: Dyspnea Objective Exam Vital Signs Vital Signs Date Time Temp Pulse Resp B/P (MAP) Pulse Ox O2 Delivery O2 Flow Rate FiO2 09/02/21 16:34 36.8 84 22 165/84 (111) 95 High Flow N/C 4.00 08/30/21 00:59 45 Capillary Refill : Less Than 3 Seconds General Appearance: No Apparent Distress, WD/WN, Chronically ill Respiratory: No Accessory Muscle Use, No Respiratory Distress, Decreased Breath Sounds Cardiovascular: Regular Rate, Rhythm Neurologic/Psychiatric: Alert, Oriented x3, No Motor/Sensory Deficits, Normal Mood/Affect Results/Procedures Lab Laboratory Tests 09/02/21 05:30 Patient resulted labs reviewed. Assessment/Plan Assessment and Plan Assess & Plan/Chief Complaint (1) Acute and chronic respiratory failure with hypoxia Status: Acute Assessment & Plan: - Patient admitted to ICU on bipap, will transition to [place] as ABG was much improved last night, patient desires to wear bipap when resting, MAT protocol, IV steroids q8hrs, IV antibiotics 08/21: Improving, patient is on home oxygen, will continue to monitor 08/22: On bipap overnight, patient had episode of anxiety and had to be placed on bipap because she said that was the only thing that helped, oxygen rebounded quickly 08/23: Patient with a couple episodes or respiratory distress ON, upon evaluation this AM, patient in moderate to severe distress w/o bipap on. Bipap placed on patient and patient was moved to ICU do to profound distress with hypoxia, repeat CXR, labs and broaded antibiotics to cefepime, notified eICU of change in status 08/24: remains biPAP dependent 08/25: BiPAP 08/26: BiPAP 08/26: BiPAP 08/28: BiPAP 08/29: 8L/min hi-buddy (2) Microcytic anemia Assessment & Plan: 08/21: Fe studies pending, will replace fe if low, patient states that she had colonoscopy several years ago with Dr Bains w/o any removal of polyps 08/22: Started on venofer 08/23: Give 1 unit of blood 08/26: Hgb stable (3) Sepsis Status: Resolved Assessment & Plan: - HDS, will continue to monitor VS Qualifiers: (4) Bilateral pneumonia Status: Acute Assessment & Plan: 08/23: Antibiotics were broadened to Cefepime Qualifiers: Qualified Codes: J18.9 - Pneumonia, unspecified organism (5) CAD (coronary artery disease) Status: Chronic Qualifiers: Qualified Codes: I25.10 - Atherosclerotic heart disease of [place] coronary artery without angina pectoris (6) COPD with exacerbation Status: Acute (7) Elevated d-dimer Status: Acute Assessment & Plan: - CTA: No PE, will transition to lovenox (8) Heavy smoker Status: Chronic (9) Basal cell carcinoma (BCC) of dorsum of nose Status: Acute Assessment & Plan: 08/21: On going treatment in [place] (10) DVT prophylaxis Status: Chronic Assessment & Plan: - Admitted on Heparin, will transition to lovenox (11) Physical debility Status: Acute Assessment & Plan: 08/21: PT/OT encourage OOB Plan: Transfer to floor PT OT 08/31: Improved status 09/01/2021: Improved status Lungs are clear BiPAP at night 09/02/2021: Supportive care Disposition with social media campaign manager help Critical Care Critically Ill Patient YURIY HERNANDEZ DO Sep 02, 2021 07:01
[2021-09-02 07:37] VITALS: BP 151/86
[2021-09-02] MEDS: BENZONATATE 100 MG (TESSALON) CAPSULE PO SCH ×3 (08:39→20:31)
[2021-09-02] MEDS: methylPREDNISolone 40 MG/ML (Solu-MEDROL) VIAL IV SCH ×2 (08:40→20:31)
[2021-09-02] MEDS: FAMOTIDINE 20 MG (PEPCID) TABLET PO SCH ×2 (08:40→20:31)
[2021-09-02] MEDS: SENNA W/DOCUSATE (SENOKOT S) TABLET PO SCH ×2 (08:40→20:31)
[2021-09-02] MEDS: polyethylene glycoL POWDER 17 GM (MIRALAX) PACK PO SCH ×2 (09:00→20:28)
[2021-09-02 11:28] VITALS: BP 132/73
[2021-09-02] MEDS ORDERED: BISACODYL 10 MG SUPP (DULCOLAX) PR NR (12:00)
[2021-09-02] MEDS ORDERED: MAGNESIUM CITRATE 300 ML BTL PO NR (12:00)
[2021-09-02 16:34] VITALS: BP 165/84
[2021-09-02 19:38] VITALS: BP 144/83
[2021-09-02] MEDS: MONTELUKAST 10 MG (SINGULAIR) TAB PO SCH (20:31)
[2021-09-02] MEDS: ASPIRIN 81 MG CHEW (CHILDREN'S ASA) PO SCH (20:31)
[2021-09-02] MEDS: DULoxetine 30 MG (CYMBALTA) CAP PO SCH (20:31)
[2021-09-03] VITALS: BP 163/92
[2021-09-03] MEDS: LORazepam 0.5 MG (ATIVAN) TABLET PO SCH ×6 (00:31→16:58)
[2021-09-03] MEDS: RT-ALBUTEROL/IPRATROPIUM 3 ML (DUONEB) VIAL INH SCH ×4 (03:12→18:57)
[2021-09-03 03:48] VITALS: BP 117/75
[2021-09-03] MEDS: FUROSEMIDE 40 MG/4 ML INJ (LASIX) IVP SCH ×2 (06:15→16:58)
[2021-09-03 06:19] LABS: BASOPHILS % (AUTO) 0 % (0-10); EOSINOPHILS # (AUTO) 0.1 10^3/uL (0.0-0.3); EOSINOPHILS % (AUTO) 0 % (0-10); HEMATOCRIT 35 % (35-52); HEMOGLOBIN 10.5 g/dL (11.5-16.0); LYMPHOCYTES # (AUTO) 8.8 10^3/uL (1.0-4.0); LYMPHOCYTES % (AUTO) 34 % (12-44); MEAN CORPUSCULAR HEMOGLOBIN 26 pg (25-34); MEAN CORPUSCULAR HGB CONC 30 g/dL (32-36); MEAN CORPUSCULAR VOLUME 85 fL (80-99); MEAN PLATELET VOLUME 10.4 fL (9.0-12.2); MONOCYTES # (AUTO) 1.6 10^3/uL (0.0-1.0); MONOCYTES % (AUTO) 6 % (0-12); NEUTROPHILS # (AUTO) 15.4 10^3/uL (1.8-7.8); NEUTROPHILS % (AUTO) 59 % (42-75); PLATELET COUNT 272 10^3/uL (130-400); WHITE BLOOD COUNT 26.2 10^3/uL (4.3-11.0)
[2021-09-03 06:33] LABS: ALBUMIN 3.3 GM/DL (3.2-4.5); POTASSIUM 3.6 MMOL/L (3.6-5.0)
[2021-09-03 06:34] LABS: CALCIUM 8.6 MG/DL (8.5-10.1)
[2021-09-03 06:36] LABS: TOTAL PROTEIN 6.1 GM/DL (6.4-8.2)
[2021-09-03 06:38] LABS: BILIRUBIN,TOTAL 0.4 MG/DL (0.1-1.0)
[2021-09-03 06:39] LABS: CREATININE SERUM 0.95 MG/DL (0.60-1.30)
[2021-09-03 06:59] LABS: ANISOCYTOSIS MARKED; BAND NEUTROPHILS 0 %; BASOPHILS % (MANUAL) 0 %; EOSINOPHILS % (MANUAL) 1 %; HYPOCHROMASIA MODERATE; LYMPHOCYTES % (MANUAL) 29 %; MONOCYTES % (MANUAL) 3 %; NEUTROPHILS % (MANUAL) 67 %; POLYCHROMASIA MODERATE; TARGET CELLS MODERATE
[2021-09-03 07:25] VITALS: BP 133/75
[2021-09-03] MEDS: BENZONATATE 100 MG (TESSALON) CAPSULE PO SCH ×3 (09:16→20:25)
[2021-09-03] MEDS: FAMOTIDINE 20 MG (PEPCID) TABLET PO SCH ×2 (09:17→20:25)
[2021-09-03] MEDS: methylPREDNISolone 40 MG/ML (Solu-MEDROL) VIAL IV SCH (09:17)
[2021-09-03] MEDS: SENNA W/DOCUSATE (SENOKOT S) TABLET PO SCH ×2 (09:21→19:44)
[2021-09-03] MEDS: polyethylene glycoL POWDER 17 GM (MIRALAX) PACK PO SCH ×2 (09:21→19:44)
--- NOTE | 2021-09-03 10:15 | Physical Therapy Daily Note ---
PT Daily Note-Current Subjective Patient agrees to PT. Mental Status Patient Orientation: Person, Time, Situation Attachments: Oxygen (3.5L) Transfers SCALE: Activities may be completed with or without assistive devices. 3-Njzrqrmxam-blevfxo completes the activity by him/herself with no assistance from a helper. 5-Set-up or Clean-up Assistance-helper sets up or cleans up; patient completes activity. [place] assists only prior to or following the activity. 4-Supervision or Touching Assistance-helper provides verbal cues and/or touching/steadying and/or contact guard assistance as patient completes activity. Assistance may be provided throughout the activity or intermittently. 3-Partial/Moderate Assistance-helper does LESS THAN HALF the effort. [place] l ifts, holds or supports trunk or limbs, but provides less than half the effort. 2-Substantial/Maximal Assistance-helper does MORE THAN HALF the effort. [place] lifts or holds trunk or limbs and provides more than half the effort. 9-Edvnkvmph-ifqqcc does ALL the effort. Patient does none of the effort to complete the activity. Or, the assistance of 2 or more helpers is required for t he patient to complete the activity. If activity was not attempted, code reason: 7-Patient Refused. 9-Not Applicable-not attempted and the patient did not perform the activity before the current illness, exacerbation or injury. 10-Not Attempted due to Environmental Limitations-(lack of equipment, weather restraints, etc.). 88-Not Attempted due to Medical Conditions or Safety Concerns. Sit to Stand (QC): 4 Weight Bearing Right Lower Extremity: Right Weight Bearing/Tolerated Left Lower Extremity: Left Weight Bearing/Tolerated Gait Training Distance: 275' Walk 10 feet (QC): 4 Walk 50 ft with 2 Turns(QC): 4 Walk 150 ft (QC): 4 Gait Assistive Device: FWW slow, steady gait sequence with no deviation Exercises Seated Therapy Exercises: Long arc quads Seated Reps: 15 Assessment Patient much improved with gross motor skills and pulmonary function. Continue to increase activity as tolerated by patient. Patient and nursing instructed to ambulate PRN in hallway. PT Lugger Goals Lugger Goals PT Assisted Goals Time Frame: Sep 08, 2021 Roll Left & Right (QC): 6 Sit to Lying (QC): 6 Lying-Sitting on Side/Bed(QC): 6 Sit to Stand (QC): 6 Chair/Ire-sq-Cwenk Xfer(QC): 6 Toilet Transfer (QC): 6 Walk 10 feet (QC): 4 Walk 50ft with 2 Turns (QC): 4 Walk 150 ft (QC): 4 PT Plan Treatment/Plan Treatment Plan: Continue Plan of Care Treatment Plan: Bed Mobility, Education, Functional Activity Raffi, Functional Strength, Gait, Safety, Therapeutic Exercise, Transfers Treatment Duration: Sep 08, 2021 Frequency: 6 times per week Estimated Hrs Per Day: .25 hour per day Patient and/or Family Agrees t: Yes Time/GCodes Time In: 933 Time Out: 943 Total Billed Treatment Time: 10 Total Billed Treatment 1 visit FA 10 min ANDREW YANG PT Sep 03, 2021 10:14
[2021-09-03 11:15] VITALS: BP 141/67
--- NOTE | 2021-09-03 14:12 | Occupational Ther Daily Note ---
OT Current Status-Daily Note Subjective Pt alert, in bathroom taking shower. Pt agrees to therapy. No c/o pain. Mental Status/Objective Patient Orientation: Person, Place, Time, Situation Attachments: IV, Oxygen ADL-Treatment Per pt and nrsg, pt completed shower and dressing by self after set up. Therapy Code Descriptions/Definitions Functional [place] Measure: 0=Not Assessed/NA 4=Minimal Assistance 1=Total Assistance 5=Supervision or Setup 2=Maximal Assistance 6=Modified [place] 3=Moderate Assistance 7=Complete IndependenceSCALE: Activities may be completed with or without assistive devices. 0-Agnmmipjvs-fzpbcmn completes the activity by him/herself with no assistance from a helper. 5-Set-up or Clean-up Assistance-helper sets up or cleans up; patient completes activity. [place] assists only prior to or following the activity. 4-Supervision or Touching Assistance-helper provides verbal cues and/or touching/steadying and/or contact guard assistance as patient completes activity. Assistance may be provided throughout the activity or intermittently. 3-Partial/Moderate Assistance-helper does LESS THAN HALF the effort. [place] lifts, holds or supports trunk or limbs, but provides less than half the effort. 2-Substantial/Maximal Assistance-helper does MORE THAN HALF the effort. [place] lifts or holds trunk or limbs and provides more than half the effort. 3-Noxcjsaer-zqlccb does ALL the effort. Patient does none of the effort to complete the activity. Or, the assistance of 2 or more helpers is required for the patient to complete the activity. If activity was not attempted, code reason: 7-Patient Refused. 9-Not Applicable-not attempted and the patient did not perform the activity before the current illness, exacerbation or injury. 10-Not Attempted due to Environmental Limitations-(lack of equipment, weather restraints, etc.). 88-Not Attempted due to Medical Conditions or Safety Concerns. Shower/Bathe Self (QC): 5 Lower Body Dressing (QC): 5 On/Off Footwear: 5 Other Treatment Pt willing to complete B UE exercises after shower. Skilled instruction for correct technique and modifications when necessary. Pt only tolerated 1 B UE exercise with medium resistance exercise, 10 reps. Pt began SOA and unable to complete full ROM with theraband due to fatigue. After therapy, pt lying in bed with call light/phone in reach. All needs met in room. OT Tile Layer Supervisor Goals Alf Goals Time Frame: Sep 13, 2021 Toileting Hygiene (QC): 4 Shower/Bathe Self (QC): 4 Upper Body Dressing (QC): 5 Lower Body Dressing (QC): 4 On/Off Footwear (QC): 4 1=Demonstrate adherence to instructed precautions during ADL tasks. 2=Patient will verbalize/demonstrate understanding of assistive devices/modifications for ADL. 3=Patient will improve strength/tolerance for activity to enable patient to perform ADL's. OT Education/Plan Problem List/Assessment Assessment: Decreased Activ Tolerance, Decreased UE Strength Discharge Recommendations Plan/Recommendations: Continue POC Treatment Plan/Plan of Care Patient would benefit from OT for education, treatment and training to promote independence in ADL's, mobility, safety and/or upper extremity function for ADL's. Plan of Care: ADL Retraining, Functional Mobility, Group Exercise/Act as Ind, UE Funct Exercise/Act Treatment Duration: Sep 13, 2021 Frequency: 3 times per week (3-5x/week) Estimated Hrs Per Day: .25 hour per day Agreement: Yes Rehab Potential: Guarded Time/GCodes Start Time: 13:26 Stop Time: 13:42 Total Time Billed (hr/min): 16 Billed Treatment Time 1 visit-EX 1 (16 min) TONG OVERTON Sep 03, 2021 14:12
[2021-09-03 16:17] VITALS: BP 162/78
--- NOTE | 2021-09-03 16:51 | Progress Note ---
Subjective Subjective/Events-last exam Pt states she is doing okay, but very concerned about her anxiety, because she gets anxious then can't breathe and wants bipap which does help. She is wanting to have xanax or ativan for home, but states she was told she couldn't use it with buprenorphine, so now she is wondering if she should use it instead of buprenoprhine. Objective Exam Last Set of Vital Signs Vital Signs Date Time Temp Pulse Resp B/P (MAP) Pulse Ox O2 Delivery O2 Flow Rate FiO2 09/03/21 16:17 36.7 84 19 162/78 (106) 98 High Flow N/C 4.00 08/30/21 00:59 45 Capillary Refill : Less Than 3 Seconds I&O Intake and Output 09/03/21 00:00 Intake Total 1720 ml Output Total 0 ml Balance 1720 ml Intake Oral 1720 ml Estimated Blood Loss 0 ml # Voids 8 # Urine Diapers 2 # Bowel Movements 1 General: Alert, Mild Distress (appears anxious) Lungs: Clear to Auscultation Heart: Regular Rate Abdomen: Normal Bowel Sounds, Soft Neuro: Normal Speech Psych/Mental Status: Mental Status NL Results/Procedures Lab Laboratory Tests 09/03/21 05:45: White Blood Count 26.2H, Red Blood Count 4.07, Hemoglobin 10.5L, Hematocrit 35, Mean Corpuscular Volume 85, Mean Corpuscular Hemoglobin 26, Mean Corpuscular Hemoglobin Concent 30L, Red Cell Distribution Width 25.6H, Platelet Count 272, Mean Platelet Volume 10.4, Immature Granulocyte % (Auto) 1, Neutrophils (%) (Auto) 59, Lymphocytes (%) (Auto) 34, Monocytes (%) (Auto) 6, Eosinophils (%) (Auto) 0, Basophils (%) (Auto) 0, Neutrophils # (Auto) 15.4H, Lymphocytes # (Auto) 8.8H, Monocytes # (Auto) 1.6H, Eosinophils # (Auto) 0.1, Basophils # (Auto) 0.0, Immature Granulocyte # (Auto) 0.3H, Neutrophils % (Manual) 67, Lymphocytes % (Manual) 29, Monocytes % (Manual) 3, Eosinophils % (Manual) 1, Basophils % (Manual) 0, Band Neutrophils 0, Smudge Cells MOD, Polychromasia MODERATE, Hypochromasia MODERATE, Basophilic Stippling SLIGHT, Anisocytosis MARKED, Target Cells MODERATE, Sodium Level 135, Potassium Level 3.6, Chloride Level 90L, Carbon Dioxide Level 32, Anion Gap 13, Blood Urea Nitrogen 35H, Creatinine 0.95, Estimat Glomerular Filtration Rate 67, BUN/Creatinine Ratio 37, Glucose Level 106H, Calcium Level 8.6, Corrected Calcium 9.2, Total Bilirubin 0.4, Aspartate Amino Transf (AST/SGOT) 30, Alanine Aminotransferase (ALT/SGPT) 45, Alkaline Phosphatase 84, Total Protein 6.1L, Albumin 3.3 Microbiology 08/23/21 MRSA Screen - Final, Complete MRSA not isolated 08/19/21 Urine Culture - Final, Complete NO GROWTH 08/19/21 Blood Culture - Final, Complete No growth Assessment/Plan Assessment/Plan (1) Acute and chronic respiratory failure with hypoxia Status: Acute Assessment & Plan: - Patient admitted to ICU on bipap initially - 09/03 stable on home supplemental oxygen levels (2) Microcytic anemia Assessment & Plan: 08/21: Fe studies pending, will replace fe if low, patient s tates that she had colonoscopy several years ago with Dr Bains w/o any removal of polyps 08/22: Started on venofer (3) Sepsis Status: Resolved Qualifiers: (4) Bilateral pneumonia Status: Acute Assessment & Plan: s/p ceftriaxone/azithromycin and cefepime Qualifiers: Qualified Codes: J18.9 - Pneumonia, unspecified organism (5) CAD (coronary artery disease) Status: Chronic Qualifiers: Qualified Codes: I25.10 - Atherosclerotic heart disease of [place] coronary artery without angina pectoris (6) COPD with exacerbation Status: Acute Assessment & Plan: 09/03 change to oral steroids and taper; doing much better with using bipap at night and as needed. Needs bipap for home, working on setting up. (7) Elevated d-dimer Status: Acute Assessment & Plan: - CTA: No PE, will transition to lovenox (8) Heavy smoker Status: Chronic (9) Basal cell carcinoma (BCC) of dorsum of nose Status: Acute Assessment & Plan: 08/21: On going treatment in [place] (10) Physical debility Status: Acute Assessment & Plan: 08/21: PT/OT encourage OOB (11) DVT prophylaxis Status: Chronic Assessment & Plan: - Admitted on Heparin, now on lovenox JYOTHI RODRIGUEZ MD Sep 03, 2021 16:51
[2021-09-03 19:39] VITALS: BP 115/68
[2021-09-03] MEDS: ASPIRIN 81 MG CHEW (CHILDREN'S ASA) PO SCH (20:25)
[2021-09-03] MEDS: DULoxetine 30 MG (CYMBALTA) CAP PO SCH (20:25)
[2021-09-03] MEDS: MONTELUKAST 10 MG (SINGULAIR) TAB PO SCH (20:25)
[2021-09-03] MEDS: LORazepam INJ 2 MG/ML (ATIVAN) VIAL IVP PRN (22:18)
[2021-09-04] VITALS (7 sets, daily range): BP systolic 107–162; BP diastolic 67–76
[2021-09-04] MEDS: LORazepam 0.5 MG (ATIVAN) TABLET PO SCH ×5 (00:55→23:42)
[2021-09-04] MEDS: RT-ALBUTEROL/IPRATROPIUM 3 ML (DUONEB) VIAL INH SCH ×4 (02:27→21:17)
--- NOTE | 2021-09-04 05:39 | Progress Note - Hospitalist ---
Subjective HPI/CC On Admission Date Seen by Provider: Sep 04, 2021 Time Seen by Provider: 10:00 Subjective/Events-last exam Pt is about the same Sleeping soundly, not really waking up. She needs rest so I did not disturb her Talked to the nurse she has no concerns White count up due to Prednisone Objective Exam Vital Signs Vital Signs Date Time Temp Pulse Resp B/P (MAP) Pulse Ox O2 Delivery O2 Flow Rate FiO2 09/04/21 19:46 36.6 66 16 117/74 (88) 95 High Flow N/C 4.00 08/30/21 00:59 45 Capillary Refill : Less Than 3 Seconds General Appearance: No Apparent Distress, WD/WN, Chronically ill Respiratory: Lungs Clear, Normal Breath Sounds, Decreased Breath Sounds Cardiovascular: Regular Rate, Rhythm Neurologic/Psychiatric: Alert, Oriented x3, No Motor/Sensory Deficits, Normal Mood/Affect Results/Procedures Lab Laboratory Tests 09/04/21 05:35 Patient resulted labs reviewed. Assessment/Plan Assessment and Plan Assess & Plan/Chief Complaint (1) Acute and chronic respiratory failure with hypoxia Status: Acute Assessment & Plan: - Patient admitted to ICU on bipap, will transition to NC as ABG was much improved last night, patient desires to wear bipap when resting, MAT protocol, IV steroids q8hrs, IV antibiotics 08/21: Improving, patient is on home oxygen, will continue to monitor 08/22: On bipap overnight, patient had episode of anxiety and had to be placed on bipap because she said that was the only thing that helped, oxygen rebounded quickly 08/23: Patient with a couple episodes or respiratory distress ON, upon evaluation this AM, patient in moderate to severe distress w/o bipap on. Bipap placed on patient and patient was moved to ICU do to profound distress with hypoxia, repeat CXR, labs and broaded antibiotics to cefepime, notified eICU of change in status 08/24: remains biPAP dependent 08/25: BiPAP 08/26: BiPAP 08/26: BiPAP 08/28: BiPAP 08/29: 8L/min hi-buddy (2) Microcytic anemia Assessment & Plan: 08/21: Fe studies pending, will replace fe if low, patient states that she had colonoscopy several years ago with Dr Bains w/o any removal of polyps 08/22: Started on venofer 08/23: Give 1 unit of blood 08/26: Hgb stable (3) Sepsis Status: Resolved Assessment & Plan: - HDS, will continue to monitor VS Qualifiers: (4) Bilateral pneumonia Status: Acute Assessment & Plan: 08/23: Antibiotics were broadened to Cefepime Qualifiers: Qualified Codes: J18.9 - Pneumonia, unspecified organism (5) CAD (coronary artery disease) Status: Chronic Qualifiers: Qualified Codes: I25.10 - Atherosclerotic heart disease of [place] coronary artery without angina pectoris (6) COPD with exacerbation Status: Acute (7) Elevated d-dimer Status: Acute Assessment & Plan: - CTA: No PE, will transition to lovenox (8) Heavy smoker Status: Chronic (9) Basal cell carcinoma (BCC) of dorsum of nose Status: Acute Assessment & Plan: 08/21: On going treatment in [place] (10) DVT prophylaxis Status: Chronic Assessment & Plan: - Admitted on Heparin, will transition to lovenox (11) Physical debility Status: Acute Assessment & Plan: 08/21: PT/OT encourage OOB Plan: Transfer to floor PT OT 08/31: Improved status 09/01/2021: Improved status Lungs are clear BiPAP at night 09/02/2021: Supportive care Disposition with social services help 09/04/21: Monitor closely DC tomorrow HH? Critical Care Critically Ill Patient YURIY HERNANDEZ DO Sep 04, 2021 05:39
[2021-09-04 05:52] LABS: BASOPHILS # (AUTO) 0.1 10^3/uL (0.0-0.1); BASOPHILS % (AUTO) 0 % (0-10); EOSINOPHILS # (AUTO) 0.1 10^3/uL (0.0-0.3); EOSINOPHILS % (AUTO) 0 % (0-10); HEMATOCRIT 35 % (35-52); HEMOGLOBIN 10.3 g/dL (11.5-16.0); LYMPHOCYTES # (AUTO) 8.8 10^3/uL (1.0-4.0); LYMPHOCYTES % (AUTO) 39 % (12-44); MEAN CORPUSCULAR HEMOGLOBIN 26 pg (25-34); MEAN CORPUSCULAR HGB CONC 30 g/dL (32-36); MEAN CORPUSCULAR VOLUME 87 fL (80-99); MEAN PLATELET VOLUME 10.9 fL (9.0-12.2); MONOCYTES # (AUTO) 1.7 10^3/uL (0.0-1.0); MONOCYTES % (AUTO) 8 % (0-12); NEUTROPHILS # (AUTO) 11.7 10^3/uL (1.8-7.8); NEUTROPHILS % (AUTO) 52 % (42-75); PLATELET COUNT 253 10^3/uL (130-400); WHITE BLOOD COUNT 22.7 10^3/uL (4.3-11.0)
[2021-09-04 05:58] LABS: ALBUMIN 3.3 GM/DL (3.2-4.5)
[2021-09-04 06:00] LABS: CALCIUM 8.8 MG/DL (8.5-10.1)
[2021-09-04 06:01] LABS: TOTAL PROTEIN 6.4 GM/DL (6.4-8.2)
[2021-09-04 06:03] LABS: BILIRUBIN,TOTAL 0.4 MG/DL (0.1-1.0)
[2021-09-04 06:05] LABS: CREATININE SERUM 1.03 MG/DL (0.60-1.30)
[2021-09-04] MEDS: predniSONE 20 MG TAB PO SCH (06:40)
[2021-09-04] MEDS: FUROSEMIDE 40 MG/4 ML INJ (LASIX) IVP SCH ×2 (06:40→17:43)
[2021-09-04] MEDS: CATHETER FLUSH 10 ML SYR IV PRN (06:40)
[2021-09-04] MEDS: polyethylene glycoL POWDER 17 GM (MIRALAX) PACK PO SCH ×2 (08:03→21:00)
[2021-09-04] MEDS: SENNA W/DOCUSATE (SENOKOT S) TABLET PO SCH ×2 (08:03→20:33)
[2021-09-04] MEDS: FAMOTIDINE 20 MG (PEPCID) TABLET PO SCH ×2 (08:28→20:34)
[2021-09-04] MEDS: BENZONATATE 100 MG (TESSALON) CAPSULE PO SCH ×3 (08:28→20:33)
--- NOTE | 2021-09-04 13:56 | Occupational Ther Daily Note ---
OT Current Status-Daily Note Subjective Pt alert, sitting in recliner. Pt agree to therapy. No c/o pain. Mental Status/Objective Patient Orientation: Person, Place, Time, Situation Attachments: IV, Oxygen ADL-Treatment After set up, pt donned socks by self. Pt ambulated using FWW to bathroom and stood at sink without support to complete oral care and grooming by self. After session, pt sitting in recliner with call light/phone in reach. All needs met in room. Therapy Code Descriptions/Definitions Functional [place] Measure: 0=Not Assessed/NA 4=Minimal Assistance 1=Total Assistance 5=Supervision or Setup 2=Maximal Assistance 6=Modified [place] 3=Moderate Assistance 7=Complete IndependenceSCALE: Activities may be completed with or without assistive devices. 2-Suuhdxfgpr-aktwnrk completes the activity by him/herself with no assistance from a helper. 5-Set-up or Clean-up Assistance-helper sets up or cleans up; patient completes activity. [place] assists only prior to or following the activity. 4-Supervision or Touching Assistance-helper provides verbal cues and/or touching/steadying and/or contact guard assistance as patient completes activity. Assistance may be provided throughout the activity or intermittently. 3-Partial/Moderate Assistance-helper does LESS THAN HALF the effort. [place] lifts, holds or supports trunk or limbs, but provides less than half the effort. 2-Substantial/Maximal Assistance-helper does MORE THAN HALF the effort. [place] lifts or holds trunk or limbs and provides more than half the effort. 0-Iytjzegoi-vzmwxi does ALL the effort. Patient does none of the effort to complete the activity. Or, the assistance of 2 or more helpers is required for the patient to complete the activity. If activity was not attempted, code reason: 7-Patient Refused. 9-Not Applicable-not attempted and the patient did not perform the activity before the current illness, exacerbation or injury. 10-Not Attempted due to Environmental Limitations-(lack of equipment, weather restraints, etc.). 88-Not Attempted due to Medical Conditions or Safety Concerns. Oral Hygiene (QC): 6 On/Off Footwear: 5 OT Railcar Switcher Goals Railcar Switcher Goals Time Frame: Sep 13, 2021 Toileting Hygiene (QC): 4 Shower/Bathe Self (QC): 4 Upper Body Dressing (QC): 5 Lower Body Dressing (QC): 4 On/Off Footwear (QC): 4 1=Demonstrate adherence to instructed precautions during ADL tasks. 2=Patient will verbalize/demonstrate understanding of assistive devices/modifications for ADL. 3=Patient will improve strength/tolerance for activity to enable patient to perform ADL's. OT Education/Plan Problem List/Assessment Assessment: Decreased Activ Tolerance Discharge Recommendations Plan/Recommendations: Continue POC Treatment Plan/Plan of Care Patient would benefit from OT for education, treatment and training to promote independence in ADL's, mobility, safety and/or upper extremity function for ADL's. Plan of Care: ADL Retraining, Functional Mobility, Group Exercise/Act as Ind, UE Funct Exercise/Act Treatment Duration: Sep 13, 2021 Frequency: 3 times per week (3-5x/week) Estimated Hrs Per Day: .25 hour per day Agreement: Yes Rehab Potential: Guarded Time/GCodes Start Time: 13:02 Stop Time: 13:25 Total Time Billed (hr/min): 23 Billed Treatment Time 1 visit-ADL 2 (23 min) TONG OVERTON Sep 04, 2021 13:56
--- NOTE | 2021-09-04 14:30 | Physical Therapy Daily Note ---
PT Daily Note-Current Subjective Patient agrees to PT. Mental Status Patient Orientation: Normal For Age Attachments: Oxygen Transfers SCALE: Activities may be completed with or without assistive devices. 3-Lxxfphwtcf-ffkqmyo completes the activity by him/herself with no assistance from a helper. 5-Set-up or Clean-up Assistance-helper sets up or cleans up; patient completes activity. [place] assists only prior to or following the activity. 4-Supervision or Touching Assistance-helper provides verbal cues and/or touching/steadying and/or contact guard assistance as patient completes activity. Assistance may be provided throughout the activity or intermittently. 3-Partial/Moderate Assistance-helper does LESS THAN HALF the effort. [place] lifts, holds or supports trunk or limbs, but provides less than half the effort. 2-Substantial/Maximal Assistance-helper does MORE THAN HALF the effort. [place] lifts or holds trunk or limbs and provides more than half the effort. 4-Mtaogcdvk-cyzggy does ALL the effort. Patient does none of the effort to complete the activity. Or, the assistance of 2 or more helpers is required for the patient to complete the activity. If activity was not attempted, code reason: 7-Patient Refused. 9-Not Applicable-not attempted and the patient did not perform the activity before the current illness, exacerbation or injury. 10-Not Attempted due to Environmental Limitations-(lack of equipment, weather restraints, etc.). 88-Not Attempted due to Medical Conditions or Safety Concerns. Sit to Stand (QC): 6 Weight Bearing Right Lower Extremity: Right Weight Bearing/Tolerated Left Lower Extremity: Left Weight Bearing/Tolerated Gait Training Distance: 400' x 1/250' x 1 Walk 10 feet (QC): 4 Walk 50 ft with 2 Turns(QC): 4 Walk 150 ft (QC): 4 Gait Assistive Device: FWW assist for O2 tank only Assessment Patient requires time to complete all functional mobility. Patient motivated with progress. Continue to increase activity as tolerated by patient. PT Material Control Manager Goals Custodial Goals PT Custodial Goals Time Frame: Sep 08, 2021 Roll Left & Right (QC): 6 Sit to Lying (QC): 6 Lying-Sitting on Side/Bed(QC): 6 Sit to Stand (QC): 6 Chair/Ayl-xg-Dhyfz Xfer(QC): 6 Toilet Transfer (QC): 6 Walk 10 feet (QC): 4 Walk 50ft with 2 Turns (QC): 4 Walk 150 ft (QC): 4 PT Plan Treatment/Plan Treatment Plan: Continue Plan of Care Treatment Plan: Bed Mobility, Education, Functional Activity Raffi, Functional Strength, Gait, Safety, Therapeutic Exercise, Transfers Treatment Duration: Sep 08, 2021 Frequency: 6 times per week Estimated Hrs Per Day: .25 hour per day Patient and/or Family Agrees t: Yes Time/GCodes Time In: 1350 Time Out: 1403 Total Billed Treatment Time: 13 Total Billed Treatment 1 visit FA 13 min ANDREW YANG PT Sep 04, 2021 14:30
[2021-09-04] MEDS: ASPIRIN 81 MG CHEW (CHILDREN'S ASA) PO SCH (20:33)
[2021-09-04] MEDS: DULoxetine 30 MG (CYMBALTA) CAP PO SCH (20:33)
[2021-09-04] MEDS: MONTELUKAST 10 MG (SINGULAIR) TAB PO SCH (20:34)
[2021-09-05] MEDS: RT-ALBUTEROL/IPRATROPIUM 3 ML (DUONEB) VIAL INH SCH ×4 (03:10→22:45)
[2021-09-05 03:28] VITALS: BP 118/71
[2021-09-05 05:49] LABS: BASOPHILS % (AUTO) 0 % (0-10); EOSINOPHILS % (AUTO) 0 % (0-10); HEMATOCRIT 35 % (35-52); HEMOGLOBIN 10.8 g/dL (11.5-16.0); LYMPHOCYTES # (AUTO) 6.9 10^3/uL (1.0-4.0); LYMPHOCYTES % (AUTO) 33 % (12-44); MEAN CORPUSCULAR HEMOGLOBIN 26 pg (25-34); MEAN CORPUSCULAR HGB CONC 31 g/dL (32-36); MEAN CORPUSCULAR VOLUME 85 fL (80-99); MONOCYTES # (AUTO) 1.6 10^3/uL (0.0-1.0); MONOCYTES % (AUTO) 8 % (0-12); NEUTROPHILS % (AUTO) 58 % (42-75); PLATELET COUNT 259 10^3/uL (130-400); WHITE BLOOD COUNT 20.7 10^3/uL (4.3-11.0)
[2021-09-05] MEDS: LORazepam 0.5 MG (ATIVAN) TABLET PO SCH ×4 (06:03→23:36)
[2021-09-05] MEDS: FUROSEMIDE 40 MG/4 ML INJ (LASIX) IVP SCH ×2 (06:04→16:45)
[2021-09-05] MEDS: predniSONE 20 MG TAB PO SCH (06:04)
[2021-09-05 06:05] LABS: ALBUMIN 3.3 GM/DL (3.2-4.5); POTASSIUM 3.9 MMOL/L (3.6-5.0)
[2021-09-05 06:06] LABS: CALCIUM 8.9 MG/DL (8.5-10.1)
[2021-09-05 06:07] LABS: TOTAL PROTEIN 6.3 GM/DL (6.4-8.2)
[2021-09-05 06:09] LABS: BILIRUBIN,TOTAL 0.4 MG/DL (0.1-1.0)
[2021-09-05 06:11] LABS: CREATININE SERUM 0.81 MG/DL (0.60-1.30)
[2021-09-05] MEDS: polyethylene glycoL POWDER 17 GM (MIRALAX) PACK PO SCH ×2 (07:33→20:10)
[2021-09-05 08:28] VITALS: BP 144/66
[2021-09-05] MEDS: FAMOTIDINE 20 MG (PEPCID) TABLET PO SCH ×2 (08:42→20:08)
[2021-09-05] MEDS: BENZONATATE 100 MG (TESSALON) CAPSULE PO SCH ×3 (08:42→20:08)
[2021-09-05] MEDS: SENNA W/DOCUSATE (SENOKOT S) TABLET PO SCH ×2 (08:42→20:08)
--- NOTE | 2021-09-05 08:59 | Physical Therapy Daily Note ---
PT Daily Note-Current Subjective Patient in recliner pre tx, agrees to PT, has 7/10 back pain, nurse is aware of pain and is supposed to be bringing her pain meds. Appearance Patient in recliner post tx with nurse call, phone, tray, all needs met. Mental Status Patient Orientation: Person, Place, Situation Attachments: Oxygen Transfers SCALE: Activities may be completed with or without assistive devices. 7-Umqblalixj-pdvrfth completes the activity by him/herself with no assistance from a helper. 5-Set-up or Clean-up Assistance-helper sets up or cleans up; patient completes activity. [place] assists only prior to or following the activity. 4-Supervision or Touching Assistance-helper provides verbal cues and/or touching/steadying and/or contact guard assistance as patient completes activity. Assistance may be provided throughout the activity or intermittently. 3-Partial/Moderate Assistance-helper does LESS THAN HALF the effort. [place] lifts, holds or supports trunk or limbs, but provides less than half the effort. 2-Substantial/Maximal Assistance-helper does MORE THAN HALF the effort. [place] lifts or holds trunk or limbs and provides more than half the effort. 3-Btzddwccn-tcabfc does ALL the effort. Patient does none of the effort to complete the activity. Or, the assistance of 2 or more helpers is required for the patient to complete the activity. If activity was not attempted, code reason: 7-Patient Refused. 9-Not Applicable-not attempted and the patient did not perform the activity before the current illness, exacerbation or injury. 10-Not Attempted due to Environmental Limitations-(lack of equipment, weather restraints, etc.). 88-Not Attempted due to Medical Conditions or Safety Concerns. Sit to Stand (QC): 4 Chair/Acq-fx-Xdiow Xfer(QC): 4 Weight Bearing Right Lower Extremity: Right Weight Bearing/Tolerated Left Lower Extremity: Left Weight Bearing/Tolerated Gait Training Distance: 300' Walk 10 feet (QC): 4 Walk 50 ft with 2 Turns(QC): 4 Walk 150 ft (QC): 4 Gait Persons Needed: 1 Gait Assistive Device: FWW SBA, very slow ambulation, antalgic, needed several standing rest breaks, O2 remained above 90% during ambulation Treatments transfers, ambulation Assessment Current Status: Fair Progress patient's low back pain really slowed down patient PT [facility]ci Goals Fci Goals PT [facility]ci Goals Time Frame: Sep 08, 2021 Roll Left & Right (QC): 6 Sit to Lying (QC): 6 Lying-Sitting on Side/Bed(QC): 6 Sit to Stand (QC): 6 Chair/Kyp-ck-Czmwi Xfer(QC): 6 Toilet Transfer (QC): 6 Walk 10 feet (QC): 4 Walk 50ft with 2 Turns (QC): 4 Walk 150 ft (QC): 4 PT Plan Problem List Problem List: Activity Tolerance, Functional Strength, Safety, Balance, Gait, Transfer, Bed Mobility, ROM Treatment/Plan Treatment Plan: Continue Plan of Care Treatment Plan: Bed Mobility, Education, Functional Activity Raffi, Functional Strength, Gait, Safety, Therapeutic Exercise, Transfers Treatment Duration: Sep 08, 2021 Frequency: 6 times per week Estimated Hrs Per Day: .25 hour per day Patient and/or Family Agrees t: Yes Safety Risks/Education Patient Education: Gait Training, Transfer Techniques, Correct Positioning, Safety Issues Teaching Recipient: Patient Teaching Methods: Demonstration, Discussion Response to Teaching: Reinforcement Needed Time/GCodes Time In: 813 Time Out: 829 Total Billed Treatment Time: 16 Total Billed Treatment 1 visit FA 16' JONATHAN HAYDEN PT Sep 05, 2021 08:59
[2021-09-05 12:00] VITALS: BP 127/66
[2021-09-05] MEDS: LORazepam INJ 2 MG/ML (ATIVAN) VIAL IVP PRN ×2 (12:55→20:17)
--- NOTE | 2021-09-05 14:38 | Progress Note ---
Subjective Subjective/Events-last exam Pt states she is still feeling very anxious about going home, she had some oxycodone this morning due to severe back pain. She is unable to get bipap for home due to not meeting qualifications, and she is anxious and really wants to continue ativan which she feels helps her a lot. Objective Exam Last Set of Vital Signs Vital Signs Date Time Temp Pulse Resp B/P (MAP) Pulse Ox O2 Delivery O2 Flow Rate FiO2 09/05/21 12:00 35.5 87 18 127/66 (86) 100 High Flow N/C 4.00 08/30/21 00:59 45 Capillary Refill : Less Than 3 Seconds I&O Intake and Output 09/05/21 00:00 Intake Total 950 ml Output Total 1650 ml Balance -700 ml Intake Oral 950 ml Output Urine Total 1650 ml # Voids 3 General: Alert, Mild Distress (appears anxious) Lungs: Other (decreased air movement) Heart: Other (tachycardic) Extremities: No Edema Results/Procedures Lab Laboratory Tests 09/05/21 05:35: White Blood Count 20.7H, Red Blood Count 4.17, Hemoglobin 10.8L, Hematocrit 35, Mean Corpuscular Volume 85, Mean Corpuscular Hemoglobin 26, Mean Corpuscular Hemoglobin Concent 31L, Red Cell Distribution Width 27.0H, Platelet Count 259, Mean Platelet Volume 10.0, Immature Granulocyte % (Auto) 1, Neutrophils (%) (Auto) 58, Lymphocytes (%) (Auto) 33, Monocytes (%) (Auto) 8, Eosinophils (%) (Auto) 0, Basophils (%) (Auto) 0, Neutrophils # (Auto) 12.0H, Lymphocytes # (Auto) 6.9H, Monocytes # (Auto) 1.6H, Eosinophils # (Auto) 0.0, Basophils # (Auto) 0.0, Immature Granulocyte # (Auto) 0.2H, Sodium Level 139, Potassium Level 3.9, Chloride Level 97L, Carbon Dioxide Level 30, Anion Gap 12, Blood Urea Nitrogen 32H, Creatinine 0.81, Estimat Glomerular Filtration Rate 81, BUN/Creatinine Ratio 40, Glucose Level 90, Calcium Level 8.9, Corrected Calcium 9.5, Total Bilirubin 0.4, Aspartate Amino Transf (AST/SGOT) 16, Alanine Aminotransferase (ALT/SGPT) 37, Alkaline Phosphatase 85, Total Protein 6.3L, Albumin 3.3 Microbiology 08/23/21 MRSA Screen - Final, Complete MRSA not isolated 08/19/21 Urine Culture - Final, Complete NO GROWTH 08/19/21 Blood Culture - Final, Complete No growth Assessment/Plan Assessment/Plan (1) Acute and chronic respiratory failure with hypoxia Status: Acute Assessment & Plan: - Patient admitted to ICU on bipap initially - 09/03 stable on home supplemental oxygen levels (2) Microcytic anemia Assessment & Plan: 08/21: Fe studies pending, will replace fe if low, patient states that she had colonoscopy several years ago with Dr Bains w/o any removal of polyps 08/22: Iron studies consistent with iron deficiency, Started on venofer 08/24: hemoglobin below 7, transfused 09/05: hemoglobin stable at 10.8 (3) Sepsis Status: Resolved Qualifiers: (4) Bilateral pneumonia Status: Resolved Assessment & Plan: s/p ceftriaxone/azithromycin and cefepime Qualifiers: Qualified Codes: J18.9 - Pneumonia, unspecified organism (5) CAD (coronary artery disease) Status: Chronic Assessment & Plan: On aspirin and plavix at home, STEMI with stenting in 2018, will hold plavix given anemia with hgb below 7 this admit. Qualifiers: Qualified Codes: I25.10 - Atherosclerotic heart disease of [place] coronary artery without angina pectoris (6) COPD with exacerbation Status: Acute Assessment & Plan: 09/03 change to oral steroids and taper; doing much better with using bipap at night and as needed. Needs bipap for home, working on setting up. 09/05 does not qualify for home bipap, see goals of care planning (7) Elevated d-dimer Status: Acute Assessment & Plan: - CTA: No PE (8) Heavy smoker Status: Chronic (9) Basal cell carcinoma (BCC) of dorsum of nose Status: Chronic Assessment & Plan: 08/21: On going treatment in [place] with recent resection (10) Physical debility Status: Acute Assessment & Plan: PT/OT (11) Chronic prescription opiate use Status: Chronic Assessment & Plan: On buprenorphine with long history of prior prescription opiate use. Hasn't had buprenorphine here, although re-ordered, apparently her home med was not brought in and she does not she has not asked about it. (12) Solitary lung nodule Status: Acute Assessment & Plan: Lingular 8 mm nodule, recommend CT in 6 months for follow-up (13) DVT prophylaxis Status: Chronic Assessment & Plan: Enoxaparin (14) Goals of care, counseling/discussion Status: Acute Assessment & Plan: 09/05 She continues to have severe anxiety about her breathing and now that she cannot get bipap for home, she is afraid she will not be able to manage. She does need to continue opiate therapy with buprenoprhine due to chronic pain and history of chronic opiate use, and she wants to try to stopping it so she can take ativan at home to avoid the interaction, but she also was in so much pain today she felt she needed opiate. Discussed this and she admitted she feels she does need both and we discussed again the risks of respiratory sedation and central nervous system sedation. She is adamantly opposed to a different living situation besides home. Given all this and her oxygen dependence, discussed that if her symptoms are so severe to prevent her from functioning, hospice might be a consideration, and she does want to pursue this further, consult to Palliative nurse placed for more discussion. JYOTHI RODRIGUEZ MD Sep 05, 2021 14:38
[2021-09-05 15:34] VITALS: BP 129/60
[2021-09-05 15:50] VITALS: BP 129/60
[2021-09-05] MEDS ORDERED: ENOXAPARIN 40 MG/0.4 ML (LOVENOX) SYR SC SCH (19:00)
[2021-09-05 19:07] VITALS: BP 131/70
[2021-09-05] MEDS: DULoxetine 30 MG (CYMBALTA) CAP PO SCH (20:08)
[2021-09-05] MEDS: ASPIRIN 81 MG CHEW (CHILDREN'S ASA) PO SCH (20:09)
[2021-09-05] MEDS: MONTELUKAST 10 MG (SINGULAIR) TAB PO SCH (20:09)
[2021-09-05] MEDS ORDERED: NON-FORMULARY MEDICATION 1 EA EA (Omeprazole 40 MG) PO SCH (21:00)
[2021-09-05] MEDS ORDERED: SUVOREXANT 10 MG PO SCH (21:00)
[2021-09-05] MEDS ORDERED: NON-FORMULARY MEDICATION 1 EA EA (Fluticasone/Salmeterol (Advair 500-50 Diskus) 1 EACH) IH SCH (21:00)
[2021-09-05] MEDS ORDERED: PANTOPRAZOLE 40 MG (PROTONIX) TAB PO SCH (21:00)
[2021-09-05] MEDS: RT--FLUTICASONE/SALMETEROL 232-14 (AIRDUO RespiCLICK) IH SCH (22:45)
[2021-09-06 00:14] VITALS: BP 137/75
[2021-09-06 03:27] VITALS: BP 119/72
[2021-09-06] MEDS: RT-ALBUTEROL/IPRATROPIUM 3 ML (DUONEB) VIAL INH SCH ×2 (03:55→08:00)
[2021-09-06] MEDS: LORazepam 0.5 MG (ATIVAN) TABLET PO SCH ×2 (05:32→11:39)
[2021-09-06] MEDS: FUROSEMIDE 40 MG/4 ML INJ (LASIX) IVP SCH (05:52)
[2021-09-06] MEDS: predniSONE 20 MG TAB PO SCH (05:52)
[2021-09-06] MEDS: polyethylene glycoL POWDER 17 GM (MIRALAX) PACK PO SCH (07:11)
[2021-09-06 07:25] VITALS: BP 121/77
[2021-09-06 07:39] LABS: BASOPHILS % (AUTO) 0 % (0-10); EOSINOPHILS % (AUTO) 0 % (0-10); HEMATOCRIT 42 % (35-52); HEMOGLOBIN 12.9 g/dL (11.5-16.0); LYMPHOCYTES % (AUTO) 40 % (12-44); MEAN CORPUSCULAR HEMOGLOBIN 26 pg (25-34); MEAN CORPUSCULAR HGB CONC 30 g/dL (32-36); MEAN CORPUSCULAR VOLUME 86 fL (80-99); MEAN PLATELET VOLUME 10.3 fL (9.0-12.2); MONOCYTES # (AUTO) 1.1 10^3/uL (0.0-1.0); MONOCYTES % (AUTO) 6 % (0-12); NEUTROPHILS # (AUTO) 9.1 10^3/uL (1.8-7.8); NEUTROPHILS % (AUTO) 53 % (42-75); PLATELET COUNT 304 10^3/uL (130-400); WHITE BLOOD COUNT 17.4 10^3/uL (4.3-11.0)
[2021-09-06 07:53] LABS: BILIRUBIN,TOTAL 0.7 MG/DL (0.1-1.0); CALCIUM 9.5 MG/DL (8.5-10.1); CREATININE SERUM 1.12 MG/DL (0.60-1.30); POTASSIUM 3.9 MMOL/L (3.6-5.0); TOTAL PROTEIN 7.6 GM/DL (6.4-8.2)
[2021-09-06] MEDS: RT--FLUTICASONE/SALMETEROL 232-14 (AIRDUO RespiCLICK) IH SCH (08:00)
[2021-09-06] MEDS: LORazepam INJ 2 MG/ML (ATIVAN) VIAL IVP PRN ×2 (08:17→15:14)
[2021-09-06] MEDS: FAMOTIDINE 20 MG (PEPCID) TABLET PO SCH (08:17)
[2021-09-06] MEDS: SENNA W/DOCUSATE (SENOKOT S) TABLET PO SCH (08:17)
[2021-09-06] MEDS: BENZONATATE 100 MG (TESSALON) CAPSULE PO SCH ×2 (08:18→11:39)
[2021-09-06] MEDS ORDERED: FUROSEMIDE 40 MG (LASIX) TAB PO SCH (09:00)
[2021-09-06 11:28] VITALS: BP 116/60
[2021-09-06] MEDS ORDERED: LORA-404 PO (12:01)
[2021-09-06] MEDS ORDERED: PRD20T PO (12:01)
[2021-09-06] MEDS ORDERED: OXYC5TAB PO (12:01)
--- NOTE | 2021-09-06 12:10 | Discharge Summary ---
Discharge Summary Hospital Course Problems/Diagnosis: (1) Acute and chronic respiratory failure with hypoxia Status: Acute Assessment & Plan: - Patient admitted to ICU on bipap initially - 09/03 stable on home supplemental oxygen levels (2) Microcytic anemia Assessment & Plan: 08/21: Fe studies pending, will replace fe if low, patient states that she had colonoscopy several years ago with Dr Bains w/o any removal of polyps 08/22: Iron studies consistent with iron deficiency, Started on venofer 08/24: hemoglobin below 7, transfused 09/05: hemoglobin stable at 10.8 (3) Sepsis Status: Resolved Resolution Date/Time: 08/20/21 @ 22:18 Qualifiers: (4) Bilateral pneumonia Status: Resolved Resolution Date/Time: 09/05/21 @ 14:43 Assessment & Plan: s/p ceftriaxone/azithromycin and cefepime Qualifiers: Qualified Codes: J18.9 - Pneumonia, unspecified organism (5) CAD (coronary artery disease) Status: Chronic Assessment & Plan: On aspirin and plavix at home, STEMI with stenting in 2018, will hold plavix given anemia with hgb below 7 this admit. Qualifiers: Qualified Codes: I25.10 - Atherosclerotic heart disease of [place] coronary artery without angina pectoris (6) COPD with exacerbation Status: Acute Assessment & Plan: 09/03 change to oral steroids and taper; doing much better with using bipap at night and as needed. Needs bipap for home, working on setting up. 09/05 does not qualify for home bipap, see goals of care planning (7) Elevated d-dimer Status: Acute Assessment & Plan: - CTA: No PE (8) Heavy smoker Status: Chronic (9) Basal cell carcinoma (BCC) of dorsum of nose Status: Chronic Assessment & Plan: 08/21: On going treatment in [place] with recent resection (10) Physical debility Status: Acute Assessment & Plan: PT/OT (11) Chronic prescription opiate use Status: Chronic Assessment & Plan: On buprenorphine with long history of prior prescription opiate use. Hasn't had buprenorphine here, although re-ordered, apparently her home med was not brought in and she does not she has not asked about it. (12) Solitary lung nodule Status: Acute Assessment & Plan: Lingular 8 mm nodule, recommend CT in 6 months for follow-up (13) Goals of care, counseling/discussion Status: Acute Assessment & Plan: 09/05 She continues to have severe anxiety about her breathing and now that she cannot get bipap for home, she is afraid she will not be able to manage. She does need to continue opiate therapy with buprenoprhine due to chronic pain and history of chronic opiate use, and she wants to try to stopping it so she can take ativan at home to avoid the interaction, but she als o was in so much pain today she felt she needed opiate. Discussed this and she admitted she feels she does need both and we discussed again the risks of respiratory sedation and central nervous system sedation. She is adamantly opposed to a different living situation besides home. Given all this and her oxygen dependence, discussed that if her symptoms are so severe to prevent her from functioning, hospice might be a consideration, and she does want to pursue this further, consult to Palliative nurse placed for more discussion. 09/06 patient did decide to pursue going home with hospice services and was discharged with prescriptions for ativan and oxycodone after discussion with Dr. Gilbert at [facility]. Hospital Course Date of Admission: Aug 19, 2021 at 21:28 Admission Diagnosis : Family Physician/Provider: [place] Date of Discharge: 09/06/21 Discharge Diagnosis: See problem list Hospital Course: See problem list Labs and Pending Lab Test: Laboratory Tests 09/06/21 07:25: White Blood Count 17.4H, Red Blood Count 4.91, Hemoglobin 12.9, Hematocrit 42, Mean Corpuscular Volume 86, Mean Corpuscular Hemoglobin 26, Mean Corpuscular Hemoglobin Concent 30L, Red Cell Distribution Width 27.6H, Platelet Count 304, Mean Platelet Volume 10.3, Immature Granulocyte % (Auto) 1, Neutrophils (%) (Auto) 53, Lymphocytes (%) (Auto) 40, Monocytes (%) (Auto) 6, Eosinophils (%) (Auto) 0, Basophils (%) (Auto) 0, Neutrophils # (Auto) 9.1H, Lymphocytes # (Auto) 7.0H, Monocytes # (Auto) 1.1H, Eosinophils # (Auto) 0.0, Basophils # ( Auto) 0.0, Immature Granulocyte # (Auto) 0.1, Sodium Level 136, Potassium Level 3.9, Chloride Level 92L, Carbon Dioxide Level 27, Anion Gap 17H, Blood Urea Nitrogen 27H, Creatinine 1.12, Estimat Glomerular Filtration Rate 55, BUN/Creatinine Ratio 24, Glucose Level 97, Calcium Level 9.5, Corrected Calcium 9.5, Total Bilirubin 0.7, Aspartate Amino Transf (AST/SGOT) 33, Alanine Aminotransferase (ALT/SGPT) 47, Alkaline Phosphatase 95, Total Protein 7.6, Albumin 4.0 Microbiology 08/23/21 MRSA Screen - Final, Complete MRSA not isolated 08/19/21 Urine Culture - Final, Complete NO GROWTH 08/19/21 Blood Culture - Final, Complete No growth Home Meds Active Prednisone 20 Mg Tab 0 PO UD Take 40 mg (2 tabs) on 09/07, then 20 mg (1 tab) daily x 2 days, then 10 mg (1/2 tab) daily x 2 days Reported Albuterol Sulfate 2.5 Mg/3 Ml (0.083 %) Vial.neb 2.5 Mg INH Q6H PRN Spiriva (Tiotropium [place]) 18 Mcg Aerp 1 Inh IH DAILY Advair 500-50 Diskus (Fluticasone/Salmeterol) 500 Mcg-50 Mcg/Dose Blst.w.dev 1 Each IH BID Potassium Chloride 20 Meq Tab.er.prt 20 Meq PO DAILY Furosemide 40 Mg Tablet 40 Mg PO DAILY Montelukast Sodium 10 Mg Tablet 10 Mg PO HS Cyproheptadine HCl 4 Mg Tablet 4 Mg PO HS Belsomra (Suvorexant) 5 Mg Tablet 10 Mg PO HS TAKES 2 (5MG) TABS Proair Hfa (Albuterol Sulfate) 1 Puff Puff 2 Puff IH Q4H PRN Metoprolol Succinate 25 Mg Tab.er.24h 12.5 Mg PO DAILY TAKES 1/2 OF 25MG TAB Clopidogrel (Clopidogrel Bisulfate) 75 Mg Tablet 75 Mg PO HS Buprenorphine HCl 8 Mg Tab.subl 8 Mg SL BID Omeprazole 40 Mg Capsule.dr 40 Mg PO HS Atorvastatin Calcium 40 Mg Tablet 40 Mg PO HS Aspirin 81 Mg Tab.chew 81 Mg PO HS Duloxetine HCl 60 Mg Capsule.dr 120 Mg PO HS TAKE 2 (60MG) TABS Nitroglycerin 0.4 Mg Tab.subl 0.4 Mg SL PRN PRN Assessment/Pt DC Instructions Follow up with Dr. Gilbert as planned. Discharge Diet: No Restrictions Activity as Tolerated: Yes Discharge Physical Examination Allergies: Coded Allergies: mirtazapine (Verified Adverse Reaction, Unknown, horrible nightmares, 07/24/18) General Appearance: Mild Distress (anxious) Respiratory: Decreased Breath Sounds Cardiovascular: Regular Rate, Rhythm Extremity: No Pedal Edema Skin: Warm/Dry Neurologic/Psychiatric: Alert, Other (anxious) JYOTHI RODRIGUEZ MD Sep 06, 2021 12:10
== END 2021-09-06 15:22 | disposition hospice, home (50) | DRG 871 ==
LOC: EDUNIT# 19:48 → ER FS 19:50 → ICU 21:28 → 4TH 08-21 01:09 → ICU 08-23 12:20 → CSD 08-29 12:20 → 4TH 08-30 14:00
PROVIDERS: ADMIT Internal Medicine; ATTEND Family Medicine
PROC: 5A09457 Assistance with Respiratory Ventilation, 24-96 Consecutive Hours, Continuous Positive Airway Pressure (ICD-10-PCS; principal; 2021-08-22)
PROC: 5A0935A Assistance with Respiratory Ventilation, Less than 24 Consecutive Hours, High Flow/Velocity Cannula (ICD-10-PCS; 2021-08-24)
DX: A41.9 Sepsis, unspecified organism (principal); J18.9 Pneumonia, unspecified organism; J96.22 Acute and chronic respiratory failure with hypercapnia; J96.21 Acute and chronic respiratory failure with hypoxia; J44.0 Chronic obstructive pulmonary disease with (acute) lower respiratory infection; J44.1 Chronic obstructive pulmonary disease with (acute) exacerbation; E87.1 Hypo-osmolality and hyponatremia; I13.0 Hypertensive heart and chronic kidney disease with heart failure and stage 1 through stage 4 chronic kidney disease, or unspecified chronic kidney disease; Z20.822 Contact with and (suspected) exposure to COVID-19; F17.210 Nicotine dependence, cigarettes, uncomplicated; R91.1 Solitary pulmonary nodule; F41.9 Anxiety disorder, unspecified; K59.00 Constipation, unspecified; I25.10 Atherosclerotic heart disease of native coronary artery without angina pectoris; N18.9 Chronic kidney disease, unspecified; I50.9 Heart failure, unspecified; E78.00 Pure hypercholesterolemia, unspecified; D50.9 Iron deficiency anemia, unspecified; M06.9 Rheumatoid arthritis, unspecified; M79.7 Fibromyalgia; Z99.81 Dependence on supplemental oxygen; I25.2 Old myocardial infarction; Z95.5 Presence of coronary angioplasty implant and graft; C44.311 Basal cell carcinoma of skin of nose; Z85.41 Personal history of malignant neoplasm of cervix uteri; Z88.8 Allergy status to other drugs, medicaments and biological substances; Z79.82 Long term (current) use of aspirin; Z79.52 Long term (current) use of systemic steroids
CPT/HCPCS: 36410; 36415; 36600; 51702; 71045; 71275; 76937; 80053; 80306; 81000; 82728; 82805; 82947; 83540; 83550; 83605; 83735; 84100; 84145; 84484; 85007; 85025; 85027; 85379; 85610; 85730; 86850; 86900; 86901; 86920; 87040; 87081; 87088; 87636; 93005; 93041; 94640; 94660; 94760; 96365; 96372; 96375; 99291

== ENCOUNTER 2023-01-02 12:08 | Emergency (ER) | payer MEDICARE, MEDICAID ==
[~2023-01-02] VITALS: Ht 147 cm; Wt 52.0 kg
[~2023-01-02 12:08] MED LIST changes: +ALBU2.5V4 INH; +ALBU8.5H6 IH; +CYPR4TAB41 PO; +FLUT1DIS27 IH; +LORA-404 PO; +OXYC5TAB PO; +POTA-179 PO; +PRD20T PO; -RT-ALBUINH IH; +SUVO5TAB2 PO; +TIOT18CA2 IH
[2023-01-02] MEDS ORDERED: RT-Ipratropium/Albuterol NEB 3 ML VIAL INH ONE ×2 (12:15→13:30)
[2023-01-02 12:44] LABS: BILIRUBIN,TOTAL 0.3 MG/DL (0.1-1.0); CALCIUM 8.5 MG/DL (8.5-10.1); CARBON DIOXIDE 24 MMOL/L (21-32); CHLORIDE 99 MMOL/L (98-107); POTASSIUM 3.3 MMOL/L (3.6-5.0); SODIUM 135 MMOL/L (135-145); TOTAL PROTEIN 6.9 GM/DL (6.4-8.2)
--- NOTE | 2023-01-02 12:44 | Diagnostic Imaging Report ---
CLINICAL INDICATION: Patient with shortness of breath which is increasing. EXAM: Portable chest x-ray, upright view. COMPARISON: Chest x-ray dated 08/30/2021. FINDINGS: There are increased lung markings throughout both lungs which were also noted on the prior study. There is slight improved aeration of the right upper lobe. Slight ground-glass opacification of both lungs is noted. There is no pleural effusion or pneumothorax. Pulmonary vasculature and cardiac silhouette are within normal limits. Bones show no significant abnormality. IMPRESSION: There is slight improved aeration of the right upper lobe. Otherwise, there are stable diffuse increased lung markings and ground-glass opacification concerning for lung infiltrates. Dictated by: Dictated on workstation # [id number]
[2023-01-02 12:46] LABS: BASOPHILS % (AUTO) 0 % (0-10); EOSINOPHILS % (AUTO) 1 % (0-10); HEMATOCRIT 35 % (35-52); HEMOGLOBIN 11.3 g/dL (11.5-16.0); LYMPHOCYTES % (AUTO) 33 % (12-44); MEAN CORPUSCULAR HEMOGLOBIN 31 pg (25-34); MEAN CORPUSCULAR HGB CONC 33 g/dL (32-36); MEAN CORPUSCULAR VOLUME 96 fL (80-99); MEAN PLATELET VOLUME 8.9 fL (9.0-12.2); MONOCYTES % (AUTO) 6 % (0-12); NEUTROPHILS % (AUTO) 59 % (42-75); PLATELET COUNT 380 10^3/uL (130-400); WHITE BLOOD COUNT 15.3 10^3/uL (4.3-11.0)
[2023-01-02 12:47] LABS: BASOPHILS # (AUTO) 0.1 10^3/uL (0.0-0.1); EOSINOPHILS # (AUTO) 0.2 10^3/uL (0.0-0.3); LYMPHOCYTES # (AUTO) 5.1 X 10^3 (1.0-4.0); MONOCYTES # (AUTO) 0.9 X 10^3 (0.0-1.0)
[2023-01-02 13:03] LABS: ALANINE AMINOTRANSFERASE 6 U/L (0-55); ALKALINE PHOSPHATASE 78 U/L (40-136); BUN/CREATININE RATIO 14; CREATININE SERUM 0.66 MG/DL (0.60-1.30); GFR ESTIMATED 97; GLUCOSE 119 MG/DL (70-105)
[2023-01-02 13:04] LABS: ALBUMIN 3.1 GM/DL (3.2-4.5)
[2023-01-02 13:05] LABS: FIBRIN DEGRADATION PRODUCTS 0.89 UG/ML (0.00-0.49)
--- NOTE | 2023-01-02 13:14 | ED Respiratory ---
General Chief Complaint: Respiratory Problems Stated Complaint: SOB Nursing Triage Note: ARRIVED VIA EMS FROM HOME WITH INCREASED SOA. HX OF COPD. PT TOOK AN ALBUTEROL TX AT HOME ALONG WITH A DUONEB AND ORAL MORPHINE. EMS GAVE SOLUMEDROL 100MG. History of Present Illness Date Seen by Provider: Jan 02, 2023 Time Seen by Provider: 12:08 Initial Comments 67-year-old female with PMH of COPD/CHF, is brought in by EMS with complaints of shortness of breath. Patient took an albuterol inhaler treatment at home which did not help. Patient also uses a BiPAP machine at night and she tried that as well at home, without any improvement. Patient reports that the BiPAP machine was making her anxious and not helping with her breathing. She took oral morphine as well since she had that for "air hunger'. EMS started her on a CPAP and gave her 100 mg of IV Solu-Medrol and a DuoNeb treatment and patient started improving. In the ER patient's wheezing stopped after another DuoNeb treatment. Patient improved and is able to speak without any issues and without a CPAP or BiPAP. Patient is on 4 L of oxygen at home which is her baseline. Allergies and Home Medications Allergies Coded Allergies: mirtazapine (Verified Adverse Reaction, Unknown, horrible nightmares, 07/24/18) Patient Home Medication List Home Medication List Reviewed: Yes Albuterol Sulfate (Ventolin Hfa) 1 Puff Puff, 2 PUFF IH Q4H PRN for SHORTNESS OF BREATH, (Reported) Entered as Reported by: YVONNE HERRERA on 08/01/20 0948 Albuterol Sulfate (Albuterol Sulfate) 2.5 Mg/3 Ml (0.083 %) Vial.neb, 2.5 MG INH Q6H PRN for SHORTNESS OF BREATH, (Reported) Entered as Reported by: HIRAL DE LA VEGA on 08/20/21 1447 Aspirin (Aspirin) 81 Mg Tab.chew, 81 MG PO HS, (Reported) Entered as Reported by: YVONNE HERRERA on 08/01/20 0941 Atorvastatin Calcium (Atorvastatin Calcium) 40 Mg Tablet, 40 MG PO HS, (Reported) Entered as Reported by: YVONNE HERRERA on 08/01/20 0941 Clopidogrel Bisulfate (Clopidogrel) 75 Mg Tablet, 75 MG PO HS, (Reported) Entered as Reported by: YVONNE HERRERA on 08/01/20 0941 Cyproheptadine HCl (Cyproheptadine HCl) 4 Mg Tablet, 4 MG PO HS, (Reported) Entered as Reported by: IHRAL DE LA VEGA on 08/20/21 144 Duloxetine HCl (Duloxetine HCl) 60 Mg Capsule.dr, 120 MG PO HS, (Reported) Entered as Reported by: FREEDOM MARQUEZ on 06/10/17 0905 Fluticasone/Salmeterol (Advair 500-50 Diskus) 500 Mcg-50 Mcg/Dose Blst.w.dev, 1 EACH IH BID, (Reported) Entered as Reported by: HIRAL DE LA VEGA on 08/20/21 144 Furosemide (Furosemide) 40 Mg Tablet, 40 MG PO DAILY, (Reported) Entered as Reported by: HIRAL DE LA VEGA on 08/20/21 144 Lorazepam (Ativan) 0.5 Mg Tablet, 0.5 MG PO Q6H PRN for ANXIETY Prescribed by: JYOTHI RODRIGUEZ on 09/06/21 1210 Metoprolol Succinate (Metoprolol Succinate) 25 Mg Tab.er.24h, 12.5 MG PO DAILY, (Reported) Entered as Reported by: YVONNE HERRERA on 08/01/20 09 Montelukast Sodium (Montelukast Sodium) 10 Mg Tablet, 10 MG PO HS, (Reported) Entered as Reported by: HIRAL DE LA VEGA on 08/20/21 144 Nitroglycerin (Nitroglycerin) 0.4 Mg Tab.subl, 0.4 MG SL PRN PRN for CHEST PAIN, (Reported) Entered as Reported by: FREEDOM MARQUEZ on 06/10/17 0903 Omeprazole (Omeprazole) 40 Mg Capsule.dr, 40 MG PO HS, (Reported) Entered as Reported by: YVONNE HERRERA on 08/01/20 0941 Oxycodone HCl (Oxycodone HCl) 5 Mg Tablet, 5 MG PO Q6H PRN for PAIN-SEVERE (8- 10) Prescribed by: JYOTHI RODRIGUEZ on 09/06/21 1210 Potassium Chloride (Potassium Chloride) 20 Meq Tab.er.prt, 20 MEQ PO DAILY, (Reported) Entered as Reported by: HIRAL DE LA VEGA on 08/20/21 1443 Prednisone (Prednisone) 20 Mg Tab, 0 PO UD Prescribed by: JYOTHI RODRIGUEZ on 09/06/21 1201 Suvorexant (Belsomra) 5 Mg Tablet, 10 MG PO HS, (Reported) Entered as Reported by: HIRAL DE LA VEGA on 08/20/21 1439 Tiotropium [place] (Spiriva) 18 Mcg Aerp, 1 INH IH DAILY, (Reported) Entered as Reported by: HIRAL DE LA VEGA on 08/20/21 1445 Review of Systems Review of Systems Constitutional: no symptoms reported EENTM: no symptoms reported Respiratory: short of breath Cardiovascular: no symptoms reported Gastrointestinal: no symptoms reported Genitourinary: no symptoms reported Musculoskeletal: no symptoms reported Past Cdwhoss-Zniqcg-Kfzwdw Hx Patient Social History Tobacco Use?: Yes Tobacco type used: Cigarettes Substance use?: No Alcohol Use?: No Seasonal Allergies Seasonal Allergies: No Past Medical History Surgeries: Yes Coronary Stent Respiratory: Yes (O2 2L AT HS) COPD Cardiac: Yes Coronary Artery Disease, Heart Attack, High Cholesterol, Hypertension Neurological: Yes Headaches /Migraines Genitourinary: No Gastrointestinal: No Chronic Constipation, Irritable Bowel Musculoskeletal: Yes Fibromyalgia, Rheumatoid Arthritis HEENT: No Cancer: Yes Cervical Did You Recieve Any Treatments: Yes What Type of Treatment Did You: Surgical Intervention Psychosocial: Yes Depression Integumentary: No Eczema Blood Disorders: No Adverse Reaction/Blood Tranf: No Family Medical History NC Physical Exam Vital Signs - First Documented 01/02/23 12:08 Temp 36.7 Pulse 113 Resp 20 Pulse Ox 100 O2 Delivery NIV CPAP Capillary Refill : Less Than 3 Seconds Height: 4'9.00" Weight: 100lbs. 2.0oz. 45.052990ae; 24.00 BMI Method:Stated General Appearance: moderate distress (Upon arrival but improved after treatment) HEENT: PERRL/EOMI, normal ENT inspection Neck: non-tender, full range of motion Respiratory: chest non-tender, crackles, rales, rhonchi, wheezing, expiration Cardiovascular: regular rate, rhythm, no edema Gastrointestinal: non tender, soft Extremities: normal range of motion Neurologic/Psychiatric: alert, oriented x 3 Skin: normal color Focused Exam Lactate Level 01/02/23 12:11: Lactic Acid Level 1.98 Lactic Acid Level Laboratory Tests Test 01/02/23 12:11 Lactic Acid Level 1.98 MMOL/L (0.50-2.00) Progress/Results/Core Measures Suspected Sepsis SIRS Temperature: Pulse: 113 Respiratory Rate: 20 Laboratory Tests 01/02/23 12:11: White Blood Count 15.3H Blood Pressure / Mean: 01/02/23 12:11: Lactic Acid Level 1.98 Laboratory Tests 01/02/23 12:11: Creatinine 0.66, INR Comment 1.0, Platelet Count 380, Total Bilirubin 0.3 Results/Orders Lab Results Laboratory Tests Test 01/02/23 12:11 01/02/23 12:29 01/02/23 12:35 01/02/23 14:50 Range/Units White Blood Count 15.3 H 4.3-11.0 10^3/uL Red Blood Count 3.62 L 3.80-5.11 10^6/uL Hemoglobin 11.3 L 11.5-16.0 g/dL Hematocrit 35 35-52 % Mean Corpuscular Volume 96 80-99 fL Mean Corpuscular Hemoglobin 31 25-34 pg Mean Corpuscular Hemoglobin Concent 33 32-36 g/dL Red Cell Distribution Width 13.2 10.0-14.5 % Platelet Count 380 130-400 10^3/uL Mean Platelet Volume 8.9 L 9.0-12.2 fL Immature Granulocyte % (Auto) 0 % Neutrophils (%) (Auto) 59 42-75 % Lymphocytes (%) (Auto) 33 12-44 % Monocytes (%) (Auto) 6 0-12 % Eosinophils (%) (Auto) 1 0-10 % Basophils (%) (Auto) 0 0-10 % Neutrophils # (Auto) 9.0 H 1.8-7.8 X 10^3 Lymphocytes # (Auto) 5.1 H 1.0-4.0 X 10^3 Monocytes # (Auto) 0.9 0.0-1.0 X 10^3 Eosinophils # (Auto) 0.2 0.0-0.3 10^3/uL Basophils # (Auto) 0.1 0.0-0.1 10^3/uL Immature Granulocyte # (Auto) 0.1 0.0-0.1 10^3/uL Neutrophils % (Manual) 52 % Lymphocytes % (Manual) 36 % Monocytes % (Manual) 6 % Eosinophils % (Manual) 1 % Basophils % (Manual) 0 % Band Neutrophils 5 % Hypersegmented Neutrophils SLIGHT Blood Morphology Comment NORMAL Prothrombin Time 14.0 12.2-14.7 SEC INR Comment 1.0 0.8-1.4 Activated Partial Thromboplast Time 31 24-35 SEC D-Dimer 0.89 H 0.00-0.49 UG/ML Sodium Level 135 135-145 MMOL/L Potassium Level 3.3 L 3.6-5.0 MMOL/L Chloride Level 99 98-107 MMOL/L Carbon Dioxide Level 24 21-32 MMOL/L Anion Gap 12 5-14 MMOL/L Blood Urea Nitrogen 9 7-18 MG/DL Creatinine 0.66 0.60-1.30 MG/DL Estimat Glomerular Filtration Rate 97 BUN/Creatinine Ratio 14 Glucose Level 119 H 70-105 MG/DL Lactic Acid Level 1.98 0.50-2.00 MMOL/L Calcium Level 8.5 8.5-10.1 MG/DL Corrected Calcium 9.2 8.5-10.1 MG/DL Magnesium Level 2.0 1.6-2.4 MG/DL Total Bilirubin 0.3 0.1-1.0 MG/DL Aspartate Amino Transf (AST/SGOT) 11 5-34 U/L Alanine Aminotransferase (ALT/SGPT) 6 0-55 U/L Alkaline Phosphatase 78 40-136 U/L Troponin I < 0.30 <0.30 NG/ML Pro-B-Type Natriuretic Peptide 3752.0 H 4371.0 H <125.0 PG/ML Total Protein 6.9 6.4-8.2 GM/DL Albumin 3.1 L 3.2-4.5 GM/DL Influenza Type A (RT-PCR) Not Detected Not Detecte Influenza Type B (RT-PCR) Not Detected Not Detecte SARS-CoV-2 RNA (RT-PCR) Not Detected Not Detecte Urine Color YELLOW Urine Clarity CLEAR Urine pH 6.0 5-9 Urine Specific [place] 1.025 H 1.016-1.022 Urine Protein TRACE H NEGATIVE Urine Glucose (UA) NEGATIVE NEGATIVE Urine Ketones NEGATIVE NEGATIVE Urine Nitrite NEGATIVE NEGATIVE Urine Bilirubin 1+ H NEGATIVE Urine Urobilinogen 0.2 < = 1.0 MG/DL Urine Leukocyte Esterase NEGATIVE NEGATIVE Urine RBC (Auto) NEGATIVE NEGATIVE Urine RBC RARE /HPF Urine WBC RARE /HPF Urine Squamous Epithelial Cells 0-2 /HPF Urine Crystals NONE /LPF Urine Bacteria FEW H /HPF Urine Casts PRESENT /LPF Urine Hyaline Casts RARE /LPF Urine Mucus SMALL H /LPF Urine Culture Indicated NO Urine Opiates Screen POSITIVE H NEGATIVE Urine Oxycodone Screen POSITIVE H NEGATIVE Urine Methadone Screen NEGATIVE NEGATIVE Urine Propoxyphene Screen NEGATIVE NEGATIVE Urine Barbiturates Screen NEGATIVE NEGATIVE Ur Tricyclic Antidepressants Screen NEGATIVE NEGATIVE Urine Phencyclidine Screen NEGATIVE NEGATIVE Urine Amphetamines Screen NEGATIVE NEGATIVE Urine Methamphetamines Screen NEGATIVE NEGATIVE Urine Benzodiazepines Screen POSITIVE H NEGATIVE Urine Cocaine Screen NEGATIVE NEGATIVE Urine Cannabinoids Screen NEGATIVE NEGATIVE My Orders Orders - SYDNEY ALONSO MD Ipratropium/Albuterol Inh Soln (Ipratrop (01/02/23 12:15) Svn Small Volume Nebulizer (01/02/23 12:12) Chest 1 View Ap/Pa Only (01/02/23 12:13) Cbc And Automated Diff (01/02/23 12:13) Comprehensive Metabolic Panel (01/02/23 12:13) Fibrin Degradation Products (01/02/23 12:13) Drug Screen Stat (Urine) (01/02/23 12:13) Magnesium (01/02/23 12:13) Protime With Inr (01/02/23 12:13) Partial Thromboplastin Time (01/02/23 12:13) Ua Culture If Indicated (01/02/23 12:13) Probnp Fs (01/02/23 12:13) Troponin I Fs (01/02/23 12:13) Influenza A And B By Pcr (01/02/23 12:13) Covid 19 Inhouse Test (01/02/23 12:14) Blood Culture (01/02/23 12:14) Lactic Acid Analyzer (01/02/23 12:14) Manual Differential (01/02/23 12:11) Ipratropium/Albuterol Inh Soln (Ipratrop (01/02/23 13:30) Svn Small Volume Nebulizer (01/02/23 13:27) Furosemide Injection (Furosemide Injec (01/02/23 13:30) Ampicillin/Sulbactam Injection (01/02/23 13:30) Probnp Fs (01/02/23 14:44) Medications Given in ED Current Medications Medications Dose Ordered Sig/Faustino Route Start Time Stop Time Status Last Admin Dose Admin Albuterol/ Ipratropium 3 ml ONCE ONCE INH 01/02/23 12:15 01/02/23 12:16 DC 01/02/23 12:16 3 ML Albuterol/ Ipratropium 3 ml ONCE ONCE INH 01/02/23 13:30 01/02/23 13:31 DC 01/02/23 13:34 3 ML Ampicillin Sodium/ Sulbactam Sodium 3 gm/Sodium Chloride 100 ml @ 200 mls/hr ONCE ONCE IV 01/02/23 13:30 01/02/23 13:59 DC 01/02/23 13:45 200 MLS/HR Furosemide 50 mg ONCE ONCE IVP 01/02/23 13:30 01/02/23 13:31 DC 01/02/23 13:34 50 MG Vital Signs/I&O 01/02/23 01/02/23 12:08 12:14 Temp 36.7 Pulse 113 Resp 20 B/P (MAP) Pulse Ox 100 O2 Delivery NIV CPAP NIV CPAP Capillary Refill : Less Than 3 Seconds Progress Note : Progress Note 1. ACUTE COPD EXACERBATION DUE TO COMMUNITY ACQUIRED PNEUMONIA: - CXR: There is slight improved aeration of the right upper lobe. Otherwise, there are stable diffuse increased lung markings and ground-glass opacification concerning for lung infiltrates. - CBC: White count is elevated at 15.3 with a left shift - COVID test/ Rapid Flu Test: negative - Duo Neb x 3 (with first one given in ambulance,and the other two in the ER) - Solumedrol 100mg iv given in ambulance by EMS - Unasyn 3gm iv STAT in ER - Pt drastically improved with treatment, and is only needing her baseline O2 of 4L on NC. She is able to speak in complete sentences. -Prescription for Augmentin given for 7 days, twice daily. - Prescription for Prednisone 50mg daily for 3 days, starting tomorrow (01/03/23) -Advised to follow-up with PCP in 7 days for repeat labs and repeat chest x-ray to ensure resolution of pneumonia. -The patient was seen in the ED, and treated appropriately to presentation at a specific point in time. Patient is informed that there is a possibility that disease and illness can evolve and change in acuity rapidly or slowly after patient is discharged from the ER. Precautionary advice given to the patient for immediate return to ER if symptoms worsen or do not resolve, and to seek emergency care sooner rather than later. Pt also advised on the importance of PCP follow up and compliance with management and follow up plan with PCP and/or specialist, as this is part of the management plan. Pt verbally expressed understanding. 2. ACUTE CHF EXACERBATION: - BNP is 3,752 - Pt did not take her Lasix today - Lasix 50mgiv STAT in ER, pt has urinated multiple times. - Repeat BNP after Lasix is: 4000's. But patient has been urinating at least 6- 7 times after being given Lasix -Patient does not want to be admitted. Advised patient to take Lasix 40 mg daily for the next 2 days and then on the third day to take it the way her PCP has prescribed it. Diagnostic Imaging Diagonstic Imaging: Xray Plain Films/CT/US/NM/MRI: chest Comments [facility]. [place], [place] NAME: JEY [facility]URCIAGA [facility] REC#: [id number] PT STATUS: REG ER : 1955 PHYSICIAN: SYDNEY ALONSO MD ADMIT DATE: 01/02/23/ER FS Draft Date of Exam:01/02/23 CHEST 1 VIEW AP/PA ONLY CLINICAL INDICATION: Patient with shortness of breath which is increasing. EXAM: Portable chest x-ray, upright view. COMPARISON: Chest x-ray dated 08/30/2021. FINDINGS: There are increased lung markings throughout both lungs which were also noted on the prior study. There is slight improved aeration of the right upper lobe. Slight ground-glass opacification of both lungs is noted. There is no pleural effusion or pneumothorax. Pulmonary vasculature and cardiac silhouette are within normal limits. Bones show no significant abnormality. IMPRESSION: There is slight improved aeration of the right upper lobe. Otherwise, there are stable diffuse increased lung markings and ground-glass opacification concerning for lung infiltrates. Dictated on workstation # [id number] Dict: 01/02/23 1240 Trans: 01/02/23 1244 [id number] Interpreted by: LUCHO MCGEE MD Electronically signed by: Departure Impression Primary Impression: COPD with acute exacerbation Additional Impressions: Community acquired pneumonia Qualified Codes: J18.9 - Pneumonia, unspecified organism Acute exacerbation of CHF (congestive heart failure) Qualified Codes: I50.9 - Heart failure, unspecified Disposition: 01 HOME, SELF-CARE Condition: Improved Departure-Patient Inst. Referrals: [facility] (PCP/Family) Primary Care Physician Patient Instructions: Oral steroid medicines, Pneumonia, Adult ED, Heart Failure ED, Heart Healthy Diet Add. Discharge Instructions: -Prescription for Augmentin given for 7 days, twice daily. - Prescription for Prednisone 50mg daily for 3 days, starting tomorrow (01/03/23) -Advised to follow-up with PCP in 7 days for repeat labs and repeat chest x-ray to ensure resolution of pneumonia. -Patient does not want to be admitted. Advised patient to take Lasix 40 mg daily for the next 2 days and then on the third day to take it the way her PCP has prescribed it. All discharge instructions reviewed with patient and/or family. Voiced understanding. Scripts Prednisone (Prednisone) 50 Mg Tab 50 MG PO DAILY for 3 Days, #3 TAB Prov: SYDNEY ALONSO MD 01/02/23 Amoxicillin (Amoxicillin) 875 Mg Tablet 875 MG PO BID for 7 Days, #14 TAB Prov: SYDNEY ALONSO MD 01/02/23 SYDNEY ALONSO MD Jan 02, 2023 13:14
[2023-01-02 13:23] LABS: AMPHETAMINE SCREEN, URINE NEGATIVE (NEGATIVE); BARBITURATE SCREEN URINE NEGATIVE (NEGATIVE); CANNABINOID SCREEN, URINE NEGATIVE (NEGATIVE); COCAINE SCREEN URINE NEGATIVE (NEGATIVE); OPIATE SCREEN URINE POSITIVE (NEGATIVE); TRICYCLIC ANTIDEPRESSANTS SCRE NEGATIVE (NEGATIVE)
[2023-01-02 13:24] LABS: METHADONE STAT NEGATIVE (NEGATIVE); OXYCODONE STAT POSITIVE (NEGATIVE); PROPOXYPHENE STAT NEGATIVE (NEGATIVE)
[2023-01-02] MEDS ORDERED: FUROSEMIDE INJECTION 40 MG/4 ML VIAL IVP ONE (13:30)
[2023-01-02] MEDS ORDERED: AMPICILLIN/Sulbactam INJECTION 3 GM in NS (IVPB) 100 ML 100 ML IV ONE (13:30)
[2023-01-02 13:35] LABS: CLARITY,URINE CLEAR; COLOR,URINE YELLOW
[2023-01-02 13:36] LABS: PROTEIN,URINE TRACE (NEGATIVE)
[2023-01-02 13:37] LABS: GLUCOSE, URINE (UA) NEGATIVE (NEGATIVE); KETONES,URINE NEGATIVE (NEGATIVE); NITRITE,URINE NEGATIVE (NEGATIVE)
[2023-01-02 13:39] LABS: BILIRUBIN,URINE 1+ (NEGATIVE); LEUKOCYTE ESTERASE ,URINE NEGATIVE (NEGATIVE)
[2023-01-02 13:40] LABS: BACTERIA,URINE FEW /HPF; HYALINE CASTS, URINE RARE /LPF; RBC,URINE RARE /HPF; SQUAMOUS EPITHELIAL CELL,UR 0-2 /HPF; WBC,URINE RARE /HPF
[2023-01-02 13:50] LABS: BAND NEUTROPHILS 5 %; BASOPHILS % (MANUAL) 0 %; EOSINOPHILS % (MANUAL) 1 %; LYMPHOCYTES % (MANUAL) 36 %; MONOCYTES % (MANUAL) 6 %; NEUTROPHILS % (MANUAL) 52 %
[2023-01-02 13:51] LABS: HYPERSEGMENTED NEUT SLIGHT; RBC MORPH NORMAL
[2023-01-02] MEDS ORDERED: AMOX875T2 PO (16:33)
[2023-01-02] MEDS ORDERED: PRD50T PO (16:33)
[2023-01-02 16:43] VITALS: BP 121/69
== END 2023-01-02 12:29 | disposition home or self-care (01) ==
LOC: EDUNIT# 12:08 → ER FS 12:09
DX: J44.1 Chronic obstructive pulmonary disease with (acute) exacerbation (principal); J18.9 Pneumonia, unspecified organism; I11.0 Hypertensive heart disease with heart failure; I50.9 Heart failure, unspecified; F17.210 Nicotine dependence, cigarettes, uncomplicated; Z99.81 Dependence on supplemental oxygen; Z79.51 Long term (current) use of inhaled steroids; Z79.1 Long term (current) use of non-steroidal anti-inflammatories (NSAID)
CPT/HCPCS: 36415; 71045; 80053; 80306; 81000; 83605; 83735; 83880; 84484; 85007; 85027; 85379; 85610; 85730; 87040; 87636

== ENCOUNTER 2023-01-04 11:17 | Emergency (ER) | payer MEDICARE, MEDICAID ==
[~2023-01-04] VITALS: Ht 142.2 cm; Wt 52.2 kg
[~2023-01-04 11:17] MED LIST changes: +AMOX875T2 PO; +PRD50T PO
[2023-01-04] MEDS ORDERED: methylPREDNISolone INJ 125 MG VIAL IV STA (11:35)
[2023-01-04 11:43] LABS: BASOPHILS # (AUTO) 0.1 10^3/uL (0.0-0.1); BASOPHILS % (AUTO) 0 % (0-10); EOSINOPHILS # (AUTO) 0.1 10^3/uL (0.0-0.3); EOSINOPHILS % (AUTO) 1 % (0-10); HEMATOCRIT 36 % (35-52); HEMOGLOBIN 12.2 g/dL (11.5-16.0); LYMPHOCYTES # (AUTO) 1.5 10^3/uL (1.0-4.0); LYMPHOCYTES % (AUTO) 12 % (12-44); MEAN CORPUSCULAR HEMOGLOBIN 32 pg (25-34); MEAN CORPUSCULAR HGB CONC 34 g/dL (32-36); MEAN CORPUSCULAR VOLUME 94 fL (80-99); MEAN PLATELET VOLUME 10.3 fL (9.0-12.2); MONOCYTES # (AUTO) 0.4 10^3/uL (0.0-1.0); MONOCYTES % (AUTO) 3 % (0-12); NEUTROPHILS # (AUTO) 10.8 10^3/uL (1.8-7.8); NEUTROPHILS % (AUTO) 84 % (42-75); PLATELET COUNT 548 10^3/uL (130-400); WHITE BLOOD COUNT 12.9 10^3/uL (4.3-11.0)
[2023-01-04] MEDS ORDERED: RT-Ipratropium/Albuterol NEB 3 ML VIAL INH ONE ×3 (11:45→14:15)
--- NOTE | 2023-01-04 11:48 | ED Respiratory ---
General Chief Complaint: Respiratory Problems Stated Complaint: SOB History of Present Illness Date Seen by Provider: Jan 04, 2023 Time Seen by Provider: 11:18 Initial Comments 67-year-old female with PMH of COPD and CHF and is a smoker, is here with c omplaints of shortness of breath which began last night. Patient was just here in the ER on January 02, which was 2 days ago and was also seen by me at that time as well. 2 days ago patient did not want to be admitted and wanted to go home. Patient was given Augmentin and prednisone and patient reports that she has been compliant with the medication plan. Denies fever and chills, cough, abdominal pain. Patient is able to speak in complete sentences but becomes breathless after doing so. Allergies and Home Medications Allergies Coded Allergies: mirtazapine (Verified Adverse Reaction, Unknown, horrible nightmares, 07/24/18) Patient Home Medication List Home Medication List Reviewed: Yes Albuterol Sulfate (Ventolin Hfa) 1 Puff Puff, 2 PUFF IH Q4H PRN for SHORTNESS OF BREATH, (Reported) Entered as Reported by: YVONNE HERRERA on 08/01/20 0948 Albuterol Sulfate (Albuterol Sulfate) 2.5 Mg/3 Ml (0.083 %) Vial.neb, 2.5 MG INH Q6H PRN for SHORTNESS OF BREATH, (Reported) Entered as Reported by: HIRAL DE LA VEGA on 08/20/21 1447 Amoxicillin (Amoxicillin) 875 Mg Tablet, 875 MG PO BID Prescribed by: SYDNEY ALONSO MD on 01/02/23 1633 Aspirin (Aspirin) 81 Mg Tab.chew, 81 MG PO HS, (Reported) Entered as Reported by: YVONNE HERRERA on 08/01/20 0941 Atorvastatin Calcium (Atorvastatin Calcium) 40 Mg Tablet, 40 MG PO HS, (Reported) Entered as Reported by: YVONNE HERRERA on 08/01/20 0941 Clopidogrel Bisulfate (Clopidogrel) 75 Mg Tablet, 75 MG PO HS, (Reported) Entered as Reported by: YVONNE HERRERA on 08/01/20 0941 Cyproheptadine HCl (Cyproheptadine HCl) 4 Mg Tablet, 4 MG PO HS, (Reported) Entered as Reported by: HIRAL DE LA VEGA on 08/20/21 1442 Duloxetine HCl (Duloxetine HCl) 60 Mg Capsule.dr, 120 MG PO HS, (Reported) Entered as Reported by: FREEDOM MARQUEZ on 06/10/17 0905 Fluticasone/Salmeterol (Advair 500-50 Diskus) 500 Mcg-50 Mcg/Dose Blst.w.dev, 1 EACH IH BID, (Reported) Entered as Reported by: HIRAL DE LA VEGA on 08/20/21 1444 Furosemide (Furosemide) 40 Mg Tablet, 40 MG PO DAILY, (Reported) Entered as Reported by: HIRAL DE LA VEGA on 08/20/21 1443 Lorazepam (Ativan) 0.5 Mg Tablet, 0.5 MG PO Q6H PRN for ANXIETY Prescribed by: JYOTHI RODRIGUEZ on 09/06/21 1210 Metoprolol Succinate (Metoprolol Succinate) 25 Mg Tab.er.24h, 12.5 MG PO DAILY, (Reported) Entered as Reported by: YVONNE HERRERA on 08/01/20 0941 Montelukast Sodium (Montelukast Sodium) 10 Mg Tablet, 10 MG PO HS, (Reported) Entered as Reported by: HIRAL DE LA VEGA on 08/20/21 1442 Nitroglycerin (Nitroglycerin) 0.4 Mg Tab.subl, 0.4 MG SL PRN PRN for CHEST PAIN, (Reported) Entered as Reported by: FREEDOM MARQUEZ on 06/10/17 0903 Omeprazole (Omeprazole) 40 Mg Capsule.dr, 40 MG PO HS, (Reported) Entered as Reported by: YVONNE HERRERA on 08/01/20 0941 Oxycodone HCl (Oxycodone HCl) 5 Mg Tablet, 5 MG PO Q6H PRN for PAIN-SEVERE (8- 10) Prescribed by: JYOTHI RODRIGUEZ on 09/06/21 1210 Potassium Chloride (Potassium Chloride) 20 Meq Tab.er.prt, 20 MEQ PO DAILY, (Reported) Entered as Reported by: HIRAL DE LA VEGA on 08/20/21 1443 Prednisone (Prednisone) 20 Mg Tab, 0 PO UD Prescribed by: JYOTHI RODRIGUEZ on 09/06/21 1201 Prednisone (Prednisone) 50 Mg Tab, 50 MG PO DAILY Prescribed by: SYDNEY ALONSO MD on 01/02/23 1633 Suvorexant (Belsomra) 5 Mg Tablet, 10 MG PO HS, (Reported) Entered as Reported by: HIRAL DE LA VEGA on 08/20/21 1439 Tiotropium [place] (Spiriva) 18 Mcg Aerp, 1 INH IH DAILY, (Reported) Entered as Reported by: HIRAL DE LA VEGA on 08/20/21 1445 Review of Systems Review of Systems Constitutional: no symptoms reported EENTM: no symptoms reported Respiratory: see HPI, short of breath, wheezing Past Uxllemd-Edsbvs-Ernglp Hx Patient Social History Tobacco Use?: Yes Tobacco type used: Cigarettes Smoking Status: Current Everyday Smoker Smokeless Tobacco Frequency: Never a User Use of E-Cig and/or Vaping dev: No Use of E-Cig and/or Vaping Guillermo: Never a User Substance use?: No Alcohol Use?: No Pt feels they are or have been: No Seasonal Allergies Seasonal Allergies: No Past Medical History Surgeries: Yes Coronary Stent Respiratory: Yes (O2 2L AT HS) COPD Cardiac: Yes Coronary Artery Disease, Heart Attack, High Cholesterol, Hypertension Neurological: Yes Headaches /Migraines Genitourinary: No Gastrointestinal: No Chronic Constipation, Irritable Bowel Musculoskeletal: Yes Fibromyalgia, Rheumatoid Arthritis HEENT: No Cancer: Yes Cervical Did You Recieve Any Treatments: Yes What Type of Treatment Did You: Surgical Intervention Psychosocial: Yes Depression Integumentary: No Eczema Blood Disorders: No Adverse Reaction/Blood Tranf: No Family Medical History NC Physical Exam Vital Signs - First Documented Capillary Refill : Height: 4'9.00" Weight: 100lbs. 2.0oz. 45.904312cy; 24.00 BMI Method:Stated General Appearance: moderate distress, other (Patient smells strongly of cigarette smoke) HEENT: PERRL/EOMI, normal ENT inspection Neck: full range of motion Respiratory: crackles, rhonchi, wheezing, expiration Cardiovascular: regular rate, rhythm, no edema Gastrointestinal: non tender, soft Extremities: normal range of motion Neurologic/Psychiatric: alert, oriented x 3 Focused Exam Lactate Level 01/04/23 11:35: Lactic Acid Level 1.99 Lactic Acid Level Laboratory Tests Test 01/04/23 11:35 Lactic Acid Level 1.99 MMOL/L (0.50-2.00) Progress/Results/Core Measures Suspected Sepsis SIRS Temperature: Pulse: Respiratory Rate: Laboratory Tests 01/04/23 11:32: White Blood Count 12.9H Blood Pressure / Mean: 01/04/23 11:35: Lactic Acid Level 1.99 Laboratory Tests 01/04/23 11:32: Creatinine 0.70, INR Comment 1.0, Platelet Count 548H, Total Bilirubin 0.5 Results/Orders Lab Results Laboratory Tests Test 01/04/23 11:32 01/04/23 11:35 Range/Units White Blood Count 12.9 H 4.3-11.0 10^3/uL Red Blood Count 3.86 3.80-5.11 10^6/uL Hemoglobin 12.2 11.5-16.0 g/dL Hematocrit 36 35-52 % Mean Corpuscular Volume 94 80-99 fL Mean Corpuscular Hemoglobin 32 25-34 pg Mean Corpuscular Hemoglobin Concent 34 32-36 g/dL Red Cell Distribution Width 13.0 10.0-14.5 % Platelet Count 548 H 130-400 10^3/uL Mean Platelet Volume 10.3 9.0-12.2 fL Immature Granulocyte % (Auto) 0 % Neutrophils (%) (Auto) 84 H 42-75 % Lymphocytes (%) (Auto) 12 12-44 % Monocytes (%) (Auto) 3 0-12 % Eosinophils (%) (Auto) 1 0-10 % Basophils (%) (Auto) 0 0-10 % Neutrophils # (Auto) 10.8 H 1.8-7.8 10^3/uL Lymphocytes # (Auto) 1.5 1.0-4.0 10^3/uL Monocytes # (Auto) 0.4 0.0-1.0 10^3/uL Eosinophils # (Auto) 0.1 0.0-0.3 10^3/uL Basophils # (Auto) 0.1 0.0-0.1 10^3/uL Immature Granulocyte # (Auto) 0.1 0.0-0.1 10^3/uL Prothrombin Time 13.6 12.2-14.7 SEC INR Comment 1.0 0.8-1.4 Activated Partial Thromboplast Time 26 24-35 SEC D-Dimer 1.24 H 0.00-0.49 UG/ML Sodium Level 130 L 135-145 MMOL/L Potassium Level 4.3 3.6-5.0 MMOL/L Chloride Level 92 L 98-107 MMOL/L Carbon Dioxide Level 20 L 21-32 MMOL/L Anion Gap 18 H 5-14 MMOL/L Blood Urea Nitrogen 13 7-18 MG/DL Creatinine 0.70 0.60-1.30 MG/DL Estimat Glomerular Filtration Rate 96 BUN/Creatinine Ratio 19 Glucose Level 115 H 70-105 MG/DL Calcium Level 9.1 8.5-10.1 MG/DL Corrected Calcium 9.7 8.5-10.1 MG/DL Magnesium Level 2.3 1.6-2.4 MG/DL Total Bilirubin 0.5 0.1-1.0 MG/DL Aspartate Amino Transf (AST/SGOT) 25 5-34 U/L Alanine Aminotransferase (ALT/SGPT) 7 0-55 U/L Alkaline Phosphatase 81 40-136 U/L Troponin I < 0.30 <0.30 NG/ML Pro-B-Type Natriuretic Peptide 5303.0 H <125.0 PG/ML Total Protein 7.5 6.4-8.2 GM/DL Albumin 3.2 3.2-4.5 GM/DL Lactic Acid Level 1.99 0.50-2.00 MMOL/L My Orders Orders - SYDNEY ALONSO MD Chest 1 View Ap/Pa Only (01/04/23 11:19) Ipratropium/Albuterol Inh Soln (Ipratrop (01/04/23 11:45) Methylprednisolone Sod Succ (Methylpredn (01/04/23 11:35) Svn Small Volume Nebulizer (01/04/23 11:35) Cbc And Automated Diff (01/04/23 11:35) Comprehensive Metabolic Panel (01/04/23 11:35) Fibrin Degradation Products (01/04/23 11:35) Lactic Acid Analyzer (01/04/23 11:35) Magnesium (01/04/23 11:35) Protime With Inr (01/04/23 11:35) Partial Thromboplastin Time (01/04/23 11:35) Probnp Fs (01/04/23 11:35) Troponin I Fs (01/04/23 11:35) Continuous Ekg Monitoring (01/04/23 11:41) Ekg Tracing (01/04/23 11:41) Ipratropium/Albuterol Inh Soln (Ipratrop (01/04/23 12:30) Svn Small Volume Nebulizer (01/04/23 12:19) Ct Angio Chest W (R/O Pe) (01/04/23 12:19) Furosemide Injection (Furosemide Injec (01/04/23 12:30) Ipratropium/Albuterol Inh Soln (Ipratrop (01/04/23 14:15) Svn Small Volume Nebulizer (01/04/23 14:06) Medications Given in ED Current Medications Medications Dose Ordered Sig/Faustino Route Start Time Stop Time Status Last Admin Dose Admin Albuterol/ Ipratropium 3 ml ONCE ONCE INH 01/04/23 11:45 01/04/23 11:46 DC 01/04/23 11:40 3 ML Albuterol/ Ipratropium 3 ml ONCE ONCE INH 01/04/23 12:30 01/04/23 12:31 DC 01/04/23 12:32 3 ML Albuterol/ Ipratropium 3 ml ONCE ONCE INH 01/04/23 14:15 01/04/23 14:16 DC 01/04/23 14:10 3 ML Furosemide 50 mg ONCE ONCE IVP 01/04/23 12:30 01/04/23 12:31 DC 01/04/23 12:32 50 MG Vital Signs/I&O 01/04/23 01/04/23 11:35 11:35 Temp 36.4 Pulse 86 Resp 20 B/P (MAP) 164/91 (115) O2 Delivery Nasal Cannula Nasal Cannula O2 Flow Rate 4.00 Capillary Refill : Progress Note : Progress Note 1. ACUTE COPD EXACERBATION: - CBC: White count is elevated at 12.9 which has improved from 2 days ago - COVID test/ Rapid Flu Test done 2 days ago in the ER: negative - Duo Neb x 3 in ER - Solumedrol 125 mg iv STAT - Long discussion of importance of immediate smoking cessation. - Prescription for nicotine patches given - Prescription for Duo Neb treatments every 4 hours as needed for Moderate to severe SOB. If severe SOB, take duo neb treatment every 20 minutes for 3 rounds and then come to the ER if it has not improved. - Use Albuterol inhaler for mild to moderate shortness of breath, 2 puffs every 4 hours as needed. - Continue Prednisone that was prescribed the other day. Take it tomorrow and the day after. Do not take today since pt received iv steroid in the ER. - Increase O2 to 5L a day for the next 3 days and lower it back to 4L when symptoms improve and stabilize. - Air out home by opening doors and windows for one hour to get rid of smoke smell, also wash bedding and clothing for the same reason. - Follow up with PCP for medication re-assessment and pulmonary function testing. - Adequate hydration advised. - Oxygen tubing and neb tubing sent with patient since her tubing at home is too long - Use Bipap as instructed by PCP 2. ACUTE CHF EXACERBATION: - BNP is 5,303 today which is an increase from 3,752 two days ago. - Pt did not take her Lasix today - Lasix 50mg iv STAT in ER, pt has urinated multiple times in the ER - Pt normally takes 40mg a day, last time she stated that she takes 20 mg a day but she says she was mistaken. 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 - Advised Cardiology appointment as soon as possible for ECHO and also for Lasix medication assessment for increasing her dosage. 3. ELEVATED D-DIMER: - D-dimer is more elevated than 2 days ago: 1.24 - CTA CHEST: No evidence of pulmonary embolism or acute aortic disease. Other some mild prominence to lymph nodes in the mediastinum as well as the right hilum, indeterminate. There is also trace pleural fluid and emphysematous changes in both lungs. 4. COMMUNITY ACQUIRED PNEUMONIA, IMPROVING: - CXR:Significant improved aeration of both lungs when compared with examination from 2 days earlier. - Continue and complete course of Augmentin as prescribed 2 days ago -The patient was seen in the ED, and treated appropriately to presentation at a specific point in time. Patient is informed that there is a possibility that disease and illness can evolve and change in acuity rapidly or slowly after patient is discharged from the ER. Precautionary advice given to the patient for immediate return to ER if symptoms worsen or do not resolve, and to seek emergency care sooner rather than later. Pt also advised on the importance of PCP follow up and compliance with management and follow up plan with PCP and/or specialist, as this is part of the management plan. Pt verbally expressed understanding. Diagnostic Imaging Diagonstic Imaging: Xray, CT Plain Films/CT/US/NM/MRI: chest Comments [facility] [place], [place] NAME: JEY BURCIAGA [facility] REC#: [id number] PT STATUS: REG ER : 1955 PHYSICIAN: SYDNEY ALONSO MD ADMIT DATE: 01/04/23/ER FS Draft Date of Exam:01/04/23 CT ANGIO CHEST W (R/O PE) INDICATION: Shortness of air. TECHNIQUE: After intravenous administration of contrast, thin section axial CT angiography of the chest was performed. 3D MIP reconstructions were made. All CT scans use one or more of the following dose optimizing techniques: automated exposure control, MA and/or KvP adjustment based on a patient size and exam type, or iterative reconstruction. No prior studies are available for comparison. Evaluation of pulmonary arterial system is without evidence of thromboembolism. No filling defects are seen within central, lobar segmental branches. Thoracic aorta is normal caliber. There is no dissection. No pericardial fluid is identified. There is trace right pleural effusion. No axillary lymphadenopathy is detected. There are borderline lymph nodes in the mediastinum right hilum. Parenchymal evaluation does show centrilobular emphysematous changes throughout both lungs. Small nodular density in the lingula measures 8 mm. Otherwise lungs are clear. Upper abdomen is unremarkable. IMPRESSION: 1. No evidence of pulmonary embolism or acute aortic disease. Other some mild prominence to lymph nodes in the mediastinum as well as the right hilum, indeterminate. There is also trace pleural fluid and emphysematous changes in both lungs. Dictated on workstation # [id number] Dict: 01/04/23 1323 Trans: 01/04/23 1337 CVB [id number] Interpreted by: MERRILL BLAKELY MD Electronically signed by: [facility]. [place], [place] NAME: JEY BURCIAGA [facility] REC#: [id number] PT STATUS: REG ER : 1955 PHYSICIAN: SYDNEY ALONSO MD ADMIT DATE: 01/04/23/ER FS Draft Date of Exam:01/04/23 CHEST 1 VIEW AP/PA ONLY Indication: Shortness of breath. Time of Exam: 11:31 AM Correlation is made with prior chest 01/02/2023. Heart size is stable. There has been generalized improved aeration of both lungs when compared to examination 2 days earlier consistent with improving infiltrates. No parenchymal consolidation is identified. There is no effusion or pneumothorax. Impression: Significant improved aeration of both lungs when compared with examination from 2 days earlier. Dictated on workstation # [id number] Dict: 01/04/23 1205 Trans: 01/04/23 1206 CV [id number] Interpreted by: MERRILL BLAKELY MD Electronically signed by: Departure Impression Primary Impression: COPD with acute exacerbation Additional Impressions: Acute exacerbation of CHF (congestive heart failure) Qualified Codes: I50.9 - Heart failure, unspecified Elevated d-dimer Disposition: HOME, SELF-CARE Condition: Improved Departure-Patient Inst. Referrals: [facility] (PCP/Family) Primary Care Physician Patient Instructions: COPD Diet, COPD Exacerbation, Adult ED, How to Use a Nebulizer ED, CHF, Risk Factors for COPD Add. Discharge Instructions: - Long discussion of importance of immediate smoking cessation. - Prescription for nicotine patches given - Prescription for Duo Neb treatments every 4 hours as needed for Moderate to severe SOB. If severe SOB, take duo neb treatment every 20 minutes for 3 rounds and then come to the ER if it has not improved. - Use Albuterol inhaler for mild to moderate shortness of breath, 2 puffs every 4 hours as needed. - Continue Prednisone that was prescribed the other day. Take it tomorrow and the day after. Do not take today since pt received iv steroid in the ER. - Increase O2 to 5L a day for the next 3 days and lower it back to 4L when symptoms improve and stabilize. - Air out home by opening doors and windows for one hour to get rid of smoke smell, also wash bedding and clothing for the same reason. - Follow up with PCP for medication re-assessment and pulmonary function testing. - Adequate hydration advised. - Advised Cardiology appointment as soon as possible for ECHO and also for Lasix medication assessment for increasing her dosage. - Continue and complete course of Augmentin as prescribed 2 days ago - Oxygen tubing and neb tubing sent with patient since her tubing at home is too long - Use Bipap as instructed by PCP All discharge instructions reviewed with patient and/or family. Voiced understanding. Scripts Nicotine (Nicotine Patch) 21 Mg/24 Hour Patch.td24 21 MG TD DAILY for 20 Days, #20 PATCH Prov: SYDNEY ALONSO MD 01/04/23 Ipratropium/Albuterol Sulfate (Iprat-Albut 0.5-3(2.5) mg/3 ml) 0.5 Mg-3 Mg (2.5 Mg Base)/3 Ml Ampul.neb 3 ML IH Q4H PRN for SHORTNESS OF BREATH for 20 Days, #60 EACH Prov: SYDNEY ALONSO MD 01/04/23 SYDNEY ALONSO MD Jan 04, 2023 11:48
[2023-01-04 11:51] LABS: BILIRUBIN,TOTAL 0.5 MG/DL (0.1-1.0); CALCIUM 9.1 MG/DL (8.5-10.1); CHLORIDE 92 MMOL/L (98-107); MAGNESIUM 2.3 MG/DL (1.6-2.4); POTASSIUM 4.3 MMOL/L (3.6-5.0); SODIUM 130 MMOL/L (135-145)
[2023-01-04 11:53] LABS: PROTHROMBIN TIME PATIENT 13.6 SEC (12.2-14.7)
[2023-01-04 11:58] LABS: ALANINE AMINOTRANSFERASE 7 U/L (0-55); ALBUMIN 3.2 GM/DL (3.2-4.5); ALKALINE PHOSPHATASE 81 U/L (40-136); BUN/CREATININE RATIO 19; CARBON DIOXIDE 20 MMOL/L (21-32); GFR ESTIMATED 96; GLUCOSE 115 MG/DL (70-105); TOTAL PROTEIN 7.5 GM/DL (6.4-8.2)
--- NOTE | 2023-01-04 12:07 | Diagnostic Imaging Report ---
Indication: Shortness of breath. Time of Exam: 11:31 AM Correlation is made with prior chest 01/02/2023. Heart size is stable. There has been generalized improved aeration of both lungs when compared to examination 2 days earlier consistent with improving infiltrates. No parenchymal consolidation is identified. There is no effusion or pneumothorax. Impression: Significant improved aeration of both lungs when compared with examination from 2 days earlier. Dictated by: Dictated on workstation # [id number]
[2023-01-04 12:17] LABS: FIBRIN DEGRADATION PRODUCTS 1.24 UG/ML (0.00-0.49)
[2023-01-04] MEDS ORDERED: FUROSEMIDE INJECTION 40 MG/4 ML VIAL IVP ONE (12:30)
--- NOTE | 2023-01-04 13:37 | Diagnostic Imaging Report ---
INDICATION: Shortness of air. TECHNIQUE: After intravenous administration of contrast, thin section axial CT angiography of the chest was performed. 3D MIP reconstructions were made. All CT scans use one or more of the following dose optimizing techniques: automated exposure control, MA and/or KvP adjustment based on a patient size and exam type, or iterative reconstruction. No prior studies are available for comparison. Evaluation of pulmonary arterial system is without evidence of thromboembolism. No filling defects are seen within central, lobar segmental branches. Thoracic aorta is normal caliber. There is no dissection. No pericardial fluid is identified. There is trace right pleural effusion. No axillary lymphadenopathy is detected. There are borderline lymph nodes in the mediastinum right hilum. Parenchymal evaluation does show centrilobular emphysematous changes throughout both lungs. Small nodular density in the lingula measures 8 mm. Otherwise lungs are clear. Upper abdomen is unremarkable. IMPRESSION: 1. No evidence of pulmonary embolism or acute aortic disease. Other some mild prominence to lymph nodes in the mediastinum as well as the right hilum, indeterminate. There is also trace pleural fluid and emphysematous changes in both lungs. Dictated by: Dictated on workstation # [id number]
[2023-01-04] MEDS ORDERED: NICO-685 TD (15:01)
[2023-01-04] MEDS ORDERED: IPRA3AMP31 IH (15:01)
[2023-01-04 15:29] VITALS: BP 139/78
== END 2023-01-04 15:29 | disposition home or self-care (01) ==
LOC: EDUNIT# 11:17 → ER FS 11:18
DX: J44.1 Chronic obstructive pulmonary disease with (acute) exacerbation (principal); I11.0 Hypertensive heart disease with heart failure; I50.9 Heart failure, unspecified; R79.89 Other specified abnormal findings of blood chemistry; F17.210 Nicotine dependence, cigarettes, uncomplicated; Z99.81 Dependence on supplemental oxygen
CPT/HCPCS: 36415; 71045; 71275; 80053; 83605; 83735; 83880; 84484; 85025; 85379; 85610; 85730; 93005; 94640